=== PATIENT | male | born 1945 | race Caucasian/White ===

== ENCOUNTER → 2020-03-26 | Emergency (ER) | payer MEDICARE, OTHER ==
[~2020-03-26] VITALS: Ht 177.8 cm; Wt 106.6 kg
[~2020-03-26] MED LIST: ALLOPURINOL300 MG PO; CIALIS20 MG PO; CIPROFLOXACIN500 MG PO; FLECAINIDE ACE100 MG PO; FLUTICASONE PRO16 GM NAS; HYDROCHLOROTHIA50 MG PO; HYDROCODON-ACE1 EA10 PO; KLOR-CON M1010 MEQ PO; LIPITOR40 MG PO; METFORMIN HCL1000 MG PO; METOPROLOL TART50 MG PO; PRILOSEC20 MG PO; SIMVASTATIN40 MG PO
--- OUTSIDE RECORDS SUMMARY | ~2020-03-26 | XMS | Encounter Summary ---
Demographics + + + | Address | [address] | | | [place] [address] | + + + | Home Phone | | + + + | Preferred Language | Unknown | + + + | Marital Status | | + + + | Hinduism Affiliation | 1009 | + + + | Race | Unknown | + + + | Ethnic Group | Unknown | + + + Author + + + | Author | [facility] | | | and [place] | + + + | Organization | [facility] | | | and [place] | + + + | Address | Unknown | + + + | Phone | Unavailable | + + + Support + + + + + | Name | Relationship | Address | Phone | + + + + + | Yuliet Crow | ECON | [address] | | | | | [place] | | | | | [address] | | + + + + + | Floyd Herndon | ECON | NA | | | | | NA, | | + + + + + Care Team Providers + +------+ + | Care Milking Machine Technician Name | Role | Phone | + +------+ + | Beltran Fields MD | PCP | | + +------+ + Reason for Visit + + + | Reason | Comments | + + + | Follow-up | follow up ESTEBAN Dick 05/05/15 urinary retention, hematuria | + + + Encounter Details +--------+ + + + + | Date | Type | Department | Care Team | Description | +--------+ + + + + | 05/14/ | Telephone | [facility] | Beltran Fields, | Follow-up (follow up | | 2015 | | MEDICINE [facility] | [address] | [address] | | | | [address] [place] | [place] [address] [place], | 05/05/15 urinary | | | | [place] [address] | [place] [address] | retention, hematuria | | | | [phone] | [phone] | ) | | | | | | | +--------+ + + + + Social History + +-------+ +--------+------+ | Tobacco Use | Types | Packs/Day | Years | Date | | | | | Used | | + +-------+ +--------+------+ | Never Smoker | | | | | + +-------+ +--------+------+ + +---+---+---+ | Smokeless Tobacco: | | | | | Never Used | | | | + +---+---+---+ + + +---------+ + | Alcohol Use | Drinks/Week | oz/Week | Comments | + + +---------+ + | Yes | | | Rare | + + +---------+ + + + + | Sex Assigned at | Date Recorded | | | | + + + | Not on file | | + + + + + + + | Job Start Date | Occupation | Industry | + + + + | Not on file | Not on file | Not on file | + + + + + + + + | Travel History | Travel Start | Travel End | + + + + + + | No recent travel history available. | + + documented as of this encounter Plan of Treatment Not on filedocumented as of this encounter Visit Diagnoses Not on filedocumented in this encounter"
--- OUTSIDE RECORDS SUMMARY | ~2020-03-26 | XMS | Encounter Summary ---
Demographics + + + | Address | [address] | | | [place] [address] | + + + | Home Phone | | + + + | Preferred Language | Unknown | + + + | Marital Status | | + + + | Baptism Affiliation | 1009 | + + + | Race | Unknown | + + + | Ethnic Group | Unknown | + + + Author + + + | Author | [facility] | | | and [place] | + + + | Organization | [facility] | | | and [place] | [...] [place] | | | | | [address] | | + + + + + | Floyd Herndon | ECON | NA | | | | | NA, | | + + + + + Care Team Providers + +------+ + | Care Grain Distributor Name | Role | Phone | + +------+ + | Beltran Fields MD | PCP | | + +------+ + Reason for Visit +--------+ + | Reason | Comments | +--------+ + | Other | SCHEDULE A SURGERY | +--------+ + Encounter Details +--------+ + + + + | Date | Type | Department | Care Team | Description | +--------+ + + + + | 09/03/ | Telephone | [facility] | Jordin Padron, | Other (SCHEDULE A | | 2013 | | [address] | MD [address] | SURGERY) | | | | [place] | [place] | | | | | [address] | [address] | | | | | [phone] | | | +--------+ + + + [...]
--- OUTSIDE RECORDS SUMMARY | ~2020-03-26 | XMS | Encounter Summary ---
Demographics + + + | Address | [address] | | | [place] [address] | + + + | Home Phone | | + + + | Preferred Language | Unknown | + + + | Marital Status | | + + + | Caodaism Affiliation | 1009 | + + + | Race | Unknown | + + + | Ethnic Group | Unknown | + + + Author + + + | Author | [facility] | | | and [place] | + + + | Organization | [facility] | | | and [place] | + + + | Address | Unknown | + + + | Phone | Unavailable | + + + Support + + + + + | Name | Relationship | Address | Phone | + + + + + | Yuliet Crow | ECON | [address] | | | | | [place], [place] | | | | | [address] | | + + + + + | Floyd Herndon | ECON | NA | | | | | NA, | | + + + + + Care Team Providers + +------+ + | Care Diamond Sizer And Grader Name | Role | Phone | + +------+ + | Beltran Fields MD | PCP | | + +------+ + Reason for Visit + + + | Reason | Comments | + + + | Medication Refill | | + + + | Other | | + + + Encounter Details +--------+ + + + + | Date | Type | Department | Care Team | Description | +--------+ + + + + | 07/24/ | Telephone | [facility] | Beltran Fields, | Medication Refill; | | 2013 | | MEDICINE [address] | MD [address] | | | | | [facility] | [address] [place], | | | | | [place] [address] | [place] [address] | | | | | [phone] | [phone] | | | | | | | | [...]
--- OUTSIDE RECORDS SUMMARY | ~2020-03-26 | XMS | Encounter Summary ---
Demographics + + + | Address | [address] | | | [place] [address] | + + + | Home Phone | | + + + | Preferred Language | Unknown | + + + | Marital Status | | + + + | Roman Catholic Affiliation | 1009 | + + + | Race | Unknown | + + + | Ethnic Group | Unknown | + + + Author + + + | Author | [facility] | | | and [place] | + + + | Organization | [facility] | | | and [place] [...] [place] | | | | | [address] | | + + + + + | Floyd Herndon | ECON | NA | | | | | NA, | | + + + + + Care Team Providers + +------+ + | Care Oncology Rep Name | Role | Phone | + [...] Description | +--------+--------+ + + + | 09/29/ | Refill | [facility] | Beltran Fields, | Medication Refill | | 2015 | | MEDICINE [facility] All | [address] [place] [address] | | | | | [facility] | [place] [address] [place], | | | | | [place] [address] | [place] [address] | | | | | [phone] | [phone] | | | | | | | | +--------+--------+ + + + [...] filedocumented as of this encounter Visit Diagnoses + + | Diagnosis | + + | Other allergic rhinitis - Primary | + + documented in this encounter"
--- OUTSIDE RECORDS SUMMARY | ~2020-03-26 | XMS | Encounter Summary ---
Demographics + + + | Address | [address] | | | [place] [address] | + + + | Home Phone | | + + + | Preferred Language | Unknown | + + + | Marital Status | | + + + | Zoroastrianism Affiliation | 1009 | + + + | Race | Unknown | + + + | Ethnic Group | Unknown | + + + Author + + + | Author | [facility] | | | and [place] | + + + | Organization | [facility] | | | and [place] [...] [place] | | | | | [address] | | + + + + + | Floyd Herndon | ECON | NA | | | | | NA, | | + + + + + Care Team Providers + +------+ + | Care Pbx Teacher Name | Role | Phone | + +------+ + | Beltran Fields MD | PCP | | + +------+ + Reason for Visit + + + | Reason | Comments | + + + | Results | discuss labs | + + + | Hyperlipidemia | | + + + Encounter Details +--------+---------+ + + + | Date | Type | Department | Care Team | Description | +--------+---------+ + + + | 05/28/ | Office | [facility] | Beltran Fields, | Hypokalemia (Primary | | 2015 | Visit | MEDICINE [address] | [address] | Dx); Iron | | | | [facility] | [address] [address] [place], | deficiency anemia; | | | | [place] [address] | [place] [address] | Status post | | | | [phone] | [phone] | prostatectomy; | | | | | | Essential | | | | | | hypertension, | | | | | | benign; Paroxysmal | | | | | | a-fib; | | | | | | Hyperlipidemia; | | | | | | Hyperglycemia | +--------+---------+ + + + Social History + +-------+ [...] + + documented as of this encounter Last Filed Vital Signs + + + + + | Vital Sign | Reading | Time Taken | Comments | + + + + + | Blood Pressure | 110/68 | 05/28/2015 1:11 PM | | | | | PDT | | + + + + + | Pulse | 56 | 05/28/2015 1:11 PM | | | | | PDT | | + + + + + | Temperature | 36.7 C (98 F) | 05/28/2015 1:11 PM | | | | | PDT | | + + + + + | Respiratory Rate | 14 | 05/28/2015 1:11 PM | | | | | PDT | | + + + + + | Oxygen Saturation | 97% | 05/28/2015 1:11 PM | | | | | PDT | | + + + + + | Inhaled Oxygen | - | - | | | Concentration | | | | + + + + + | Weight | 116.1 kg (256 lb) | 05/28/2015 1:11 PM | | | | | PDT | | + + + + + | Height | 177.8 cm (5' 10") | 05/28/2015 1:11 PM | | | | | PDT | | + + + + + | Body Mass Index | 36.73 | 05/28/2015 1:11 PM | | | | | PDT | | + + + + + documented in this encounter Progress Notes Beltran Fields MD - 05/28/2015 1:34 PM PDTFormatting of this note might be different f rom the original. Subjective: Patient ID: Guy Thurman is a 69 y.o. male. HPI Anemia, post prostatectomy, This has persisted. Hypokalemia, There are no muscle aches or cramps. It has been persistently low. Prostactectomy 11/02/14, Now with with most recent follow up Cystoscopy 05/05/15, He has h ad intermittent sporadic bleeding and she performed cauterization at that time. He is still getting very sporadic blood tinged urine at the initiation of voiding. This happened twice today. The cystoscopies seem to cause him to develop hiccups. HTN has been fine, checks it daily at home. and it runs in the 120's-130's/70-80's, no mar st pain, SOB, Ankle, pretibial edema R>L unchanged for years. This is again unchanged. Paroxysmal Afib, He will have an occasional palp with overexertion. Rare episode, less than 6 episodes per year. Last several hours per episode, He is on ECASA 325mg po qd. L ast echo 2007 with mild bitrial dilatation. Now on Flecainide per Cardiology Dr Niranjan Luevano MD in [place]. He underwent a stressecho test this january that was normal. Hyperlipidemia, on lipitor, denies muscle aches or weakness. compliant with the medication s. This is unchanged. ED, this is complete after his prostactectomy. He has tried cialis and other medications t o no avail. 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 He is . 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 He lives in [place] 9 living Grandchildren. Review of Systems Constitutional: no fever, No appetite change, no fatigue. HEENT: Neg ear pain, No nosebleeds,no rhinorrhea,no trouble swallowing and no sinus pressure. Eyes: Neg for pain and no visual disturbance. Respiratory: Neg for cough, no chest tightness, no shortness of breath no wheezing. Cardiovascular: Neg for chest pain, no palpitations and no leg swelling. Gastrointestinal: Neg for nausea,no vomiting,no diarrhea,no constipation no abdominal distention. No Belly pain, no black and no bloody stools, no excessive gas Genitourinary: Negative for urgency, no frequency, no decreased urine volume no difficulty urinating. No Bloody urine Musculoskeletal: Neg for myalgias, no back pain, no joint swelling and No arthralgias. N o joint pain Skin: Neg for color change,no rash and No wounds, no Strange moles Neurological: Neg for dizziness, no Weakness,no light-headedness, no numbness and no headaches. Hematological: Neg for adenopathy. Does not bruise/bleed easily. Psychiatric/Behavioral: Neg for suicidal ideas,no confusion and no agitation. no Depression, no anxiety,no sleep problems Objective: Physical Exam Heent, WNL, No carotid bruit Chest CTAB Heart RR&R /s M Abd S,NT,ND,BS+ Ext, no CCor E Neuro Non-focal Lymph, no cervical, axillary, inguinal adenopathy Musculoskeletal, no gross deformity or loss or range of motion Skin, no gross lesions Assessment: 1. Hypokalemia potassium chloride (POTASSIUM CHLORIDE SA) 20 mEq tablet 2. Iron deficiency anemia Iron Profile CBC with Differential 3. Status post prostatectomy 4. Essential hypertension, benign 5. Paroxysmal a-fib 6. Hyperlipidemia Plan: Will increase his K dose. Labs are due. RTC 6 months, Refill metoprolol. Otherwise cont inue current medical regimen. documented in this encounter Plan of Treatment Not on filedocumented as of this encounter Results Hemoglobin A1C (11/14/2015 12:09 PM PST) + +---------+ + + + | Component | Value | Ref Range | Performed | Pathologist | | | | | At | Signature | + +---------+ + + + | Hemoglobin | 7.1 (H) | 4.3 - 6.0 % | [facility] | | | A1c | | | [facility] | | | | | | [facility]ICAL | | | | | | CENTER - | | | | | | LABORATORY | | + +---------+ + + + | Estimated | 157 | mg/dL | [facility] | | | Average | | | [facility] | | | Glucose | | | MEDICAL | | | | | | CENTER - | | | | | | LABORATORY | | + +---------+ + + + + + | Specimen | + + | Blood | + + + + + + + | Performing | Address | City/State/Zipcode | Phone Number | | Organization | | | | + + + + + | [facility] | [address] | [place] | [phone] | | [facility] | | [address] | | | - LABORATORY | | | | + + + + + Comprehensive Metabolic Panel (11/14/2015 12:09 PM PST) + + + + + + | Component | Value | Ref Range | Performed | Pathologist | | | | | At | Signature | + + + + + + | Na | 140 | 136 - 149 | [facility] | | | | | mmol/L | [facility] | | | | | | MEDICAL | | | | | | CENTER - | | | | | | LABORATORY | | + + + + + + | K | 4.0 | 3.5 - 5.1 | [facility] | | | | | mmol/L | [facility] | | | | | | MEDICAL | | | | | | CENTER - | | | | | | LABORATORY | | + + + + + + | Cl | 103 | 98 - 109 mmol/L | [facility] | | | | | | [facility] | | | | | | MEDICAL | | | | | | CENTER - | | | | | | LABORATORY | | + + + + + + | CO2 | 30 | 24 - 31 mmol/L | [facility] | | | | | | [facility] | | | | | | MEDICAL | | | | | | CENTER - | | | | | | LABORATORY | | + + + + + + | Anion Gap | 7 | 3 - 16 mmol/L | [facility] | | | | | | [facility] | | | | | | MEDICAL | | | | | | CENTER - | | | | | | LABORATORY | | + + + + + + | Glucose | 127 (H) | 70 - 109 mg/dL | [facility] | | | | | | [facility] | | | | | | MEDICAL | | | | | | CENTER - | | | | | | LABORATORY | | + + + + + + | BUN | 11 | 7 - 18 mg/dL | [facility] | | | | | | [facility] | | | | | | MEDICAL | | | | | | CENTER - | | | | | | LABORATORY | | + + + + + + | Creatinine | 1.07 | 0.60 - 1.30 | [facility] | | | | | mg/dL | [facility] | | | | | | MEDICAL | | | | | | CENTER - | | | | | | LABORATORY | | + + + + + + | eGFR if not | >60Comment: GLOMERULAR | >=60 | [facility] | | | | FILTRATION | mL/min/1.73m2 | [facility] | | | AFGHAN | RATE,ESTIMATED | | MEDICAL | | | | mL/min/1.51t8Gylv than | | CENTER - | | | | 60 Chronic kidney | | LABORATORY | | | | disease,if found over a | | | | | | 3-month period.Less than | | | | | | 15 Kidney failureFor | | | | | | | | | | | | Americans,multiply the | | | | | | calculated GFR by 1.21. | | | | | | | | | | + + + + + + | Calcium | 9.4 | 8.3 - 10.5 | [facility] | | | | | mg/dL | [facility] | [facility] | | | | | | C[facility] - | | | | | | LABORATORY | | + + + + + + | Albumin | 3.8 | 3.2 - 5.0 g/dL | [facility] | | | | | | [facility] | | [facility] | | | [facility] | | | | | | CENTER - | | | | | | LABORATORY | | + + + + + + | Bilirubin | 0.8 | 0.1 - 1.5 mg/dL | [facility] | | | Total | | | [facility] | | | | | | MEDICAL | | | | | | CENTER - | | | | | | LABORATORY | | + + + + + + | Total | 7.0 | 6.0 - 7.8 g/dL | [facility] | | | Protein | | | [facility] | | | | | | MEDICAL | | | | | | CENTER - | | | | | | LABORATORY | | + + + + + + | AST | 21 | 10 - 42 U/L | [facility] | | | | | | [facility] | | | | | | MEDICAL | | | | | | CENTER - | | | | | | LABORATORY | | + + + + + + | ALT | 21 | 6 - 45 U/L | [facility] | | | | | | [facility] | | | | | | MEDICAL | | | | | | CENTER - | | | | | | LABORATORY | | + + + + + + | Alkaline | 93 | 40 - 110 U/L | [facility] | | | Phosphatase | | | [facility] | | | | | | MEDICAL | | | | | | CENTER - | | | | | | LABORATORY | | + + + + + + | Globulin | 3.2 | g/dL | [facility] | | | | | | [facility] | | | | | | MEDICAL | | | | | | CENTER - | | | | | | LABORATORY | | + + + + + + | Albumin/Orly | 1.2 | | [facility] | | | bulin Ratio | | | [facility] | | | | | | MEDICAL | | | | | | CENTER - | | | | | | LABORATORY | | + + + + + + | BUN/Creatin | 10.3 | | [facility] | | | ine Ratio | | | [facility] | | | | | | MEDICAL | | | | | | CENTER - | | | | | | LABORATORY | | + + + + + + + + | Specimen | + + | Blood | + + + + + + + | Performing | Address | City/State/Zipcode | Phone Number | | Organization | | | | + + + + + | [facility] | [address] | [place] | [phone] | | [facility] | | [address] | | | - LABORATORY | | | | + + + + + CBC with Differential (11/14/2015 12:09 PM PST) + + + + + + | Component | Value | Ref Range | Performed | Pathologist | | | | | At | Signature | + + + + + + | WBC | 8.6 | 4.0 - 11.0 K/uL | [facility] | | | | | | [facility] | | | | | [facility] | | | | | | CENTER - | | | | | | LABORATORY | | + + + + + + | RBC | 5.28 | 4.30 - 5.70 | [facility] | | | | | M/uL | [facility] | | | | | | MEDICAL | | | | | | CENTER - | | | | | | LABORATORY | | + + + + + + | Hemoglobin | 12.7 (L) | 13.5 - 18.0 | [facility] | | | | | g/dL | [facility] | | | | | | MEDICAL | | | | | | CENTER - | | | | | | LABORATORY | | + + + + + + | Hematocrit | 39.7 (L) | 40.0 - 51.0 % | [facility] | | | | | | [facility] | | | | | | MEDICAL | | | | | | CENTER - | | | | | | LABORATORY | | + + + + + + | MCV | 75.1 (L) | 83.0 - 101.0 fL | [facility] | | | | | | [facility] | | | | | | MEDICAL | | | | | | CENTER - | | | | | | LABORATORY | | + + + + + + | MCH | 24.1 (L) | 28.0 - 35.0 pg | [facility] | | | | | | [facility] | | | | | | MEDICAL | | | | | | CENTER - | | | | | | LABORATORY | | + + + + + + | MCHC | 32.1 | 32.0 - 36.0 | [facility] | | | | | g/dL | [facility] | | | | | | MEDICAL | | | | | | CENTER - | | | | | | LABORATORY | | + + + + + + | RDW-CV | 18.0 (H) | <15.0 % | [facility] | | | | | | [facility] | | [facility] | | | MEDICAL | | | | | | CENTER - | | | | | | LABORATORY | | + + + + + + | Platelet | 293 | 140 - 440 K/uL | [facility] | | | Count | | | [facility] | | | | | | MEDICAL | | | | | | CENTER - | | | | | | LABORATORY | | + + + + + + | MPV | 8.0 | fL | [facility] | | | | | | [facility] | | | | | | [facility]ICAL | | | | | | CENTER - | | | | | | LABORATORY | | + + + + + + | % | 57.7 | 45.0 - 82.0 % | [facility] | | | Neutrophils | | | [facility] | | | | | | MEDICAL | | | | | | CENTER - | | | | | | LABORATORY | | + + + + + + | % | 31.4 | 20.0 - 45.0 % | [facility] | | | Lymphocytes | | | [facility] | | | | | | MEDICAL | | | | | | CENTER - | | | | | | LABORATORY | | + + + + + + | % Monocytes | 8.9 | 4.0 - 12.0 % | [facility] | | | | | | [facility] | | | | | | MEDICAL | | | | | | CENTER - | | | | | | LABORATORY | | + + + + + + | % | 1.6 | 0.0 - 5.0 % | [facility] | | | Eosinophils | | | [facility] | | | | | | MEDICAL | | | | | | CENTER - | | | | | | LABORATORY | | + + + + + + | % Basophils | 0.4 | 0.0 - 1.0 % | [facility] | | | | | | [facility] | | | | | | MEDICAL | | | | | | CENTER - | | | | | | LABORATORY | | + + + + + + | Absolute | 5.00 | 1.80 - 8.50 | [facility] | | | Neutrophils | | K/uL | [facility] | | | | | | MEDICAL | | | | | | CENTER - | | | | | | LABORATORY | | + + + + + + | Absolute | 2.70 | 0.60 - 3.20 | [facility] | | | Lymphocytes | | K/uL | [facility] | | | | | | MEDICAL | | | | | | CENTER - | | | | | | LABORATORY | | + + + + + + | Absolute | 0.80 | 0.00 - 1.00 | [facility] | | | Monocytes | | K/uL | [facility] | | | | | | MEDICAL | | | | | | CENTER - | | | | | | LABORATORY | | + + + + + + | Absolute | 0.10 | 0.00 - 0.40 | [facility] | | | Eosinophils | | K/uL | [facility] | | | | | | MEDICAL | | | | | | CENTER - | | | | | | LABORATORY | | + + + + + + | Absolute | 0.00 | 0.00 - 0.10 | [facility] | | | Basophils | | K/uL | [facility] | | | | | | MEDICAL | | | | | | CENTER - | | | | | | LABORATORY | | + + + + + + + + | Specimen | + + | Blood | + + + + + + + | Performing | Address | City/State/Zipcode | Phone Number | | Organization | | | | + + + + + | [facility] | [address] | [place] | [phone] | | [facility] | | [address] | | | - LABORATORY | | | | + + + + + documented in this encounter Visit Diagnoses + + | Diagnosis | + + | Hypokalemia - Primary Hypopotassemia | + + | Iron deficiency anemia Iron deficiency anemia, unspecified | + + | Status post prostatectomy Other postprocedural status | + + | Essential hypertension, benign | + + | Paroxysmal a-fib Atrial fibrillation | + + | Hyperlipidemia Other and unspecified hyperlipidemia | + + | Hyperglycemia Other abnormal glucose | + + documented in this encounter
--- OUTSIDE RECORDS SUMMARY | ~2020-03-26 | XMS | Encounter Summary ---
Demographics + + + | Address | [address] | | | [place] [address] | + + + | Home Phone | | + + + | Preferred Language | Unknown | + + + | Marital Status | | + + + | Anabaptist Affiliation | 1009 | + + + | Race | Unknown | + + + | Ethnic Group | Unknown | + + + Author + + + | Author | [facility] | | | and [place] | + + + | Organization | [facility] | | | and [place] [...] [place] | | | | | [address] | | + + + + + | Floyd Herndon | ECON | NA | | | | | NA, | | + + + + + Care Team Providers + +------+ + | Care Interventional Technologist Name | Role | Phone | + +------+ + | Beltran Fields MD | PCP | | + +------+ + Reason for Visit + + + | Reason | Comments | + + + | Records Request | | + + + Encounter Details +--------+ + + + + | Date | Type | Department | Care Team | Description | +--------+ + + + + | 10/10/ | Telephone | [facility] | Jordin Padron, | Records Request | | 2013 | | [address] | MD [address] | | | | | [place] | [place] | | | | | [address] | [id number] | | | | | [phone] | | | +--------+ + + + [...]
--- OUTSIDE RECORDS SUMMARY | ~2020-03-26 | XMS | Encounter Summary ---
Demographics + + + | Address | [address] | | | [place] [address] | + + + | Home Phone | | + + + | Preferred Language | Unknown | + + + | Marital Status | | + + + | Restorationism Affiliation | 1009 | + + + | Race | Unknown | + + + | Ethnic Group | Unknown | + + + Author + + + | Author | [facility] | | | and [place] | + + + | Organization | [facility] | | | and [place] | + + + | Address | Unknown | + + + | Phone | Unavailable | + + + Support + + + + + | Name | Relationship | Address | Phone | + + + + + | Yuliet Crow | ECON | [address] | | | | | [place], [place] | | | | | [address] | | + + + + + | Floyd Herndon | ECON | NA | | | | | NA, | | + + + + + Care Team Providers + +------+ + | Care Golf Instructor Name | Role | Phone | + +------+ + | Beltran Fields MD | PCP | | + +------+ + Reason for Visit + + + | Reason | Comments | + + + | New Patient | BPH | + + + Evaluate & Treat (Routine) +--------+--------+ + + + + | Status | Reason | Specialty | Diagnoses / | Referred By | Referred To | | | | | Procedures | Contact | Contact | +--------+--------+ + + + + | Closed | | Urology | Diagnoses | [place], | [facility] | | | | | BPH (benign | Beltran Nunn MD | Urology [address] | | | | | prostatic | [address] | | | | | hyperplasia) | [address] | [place], | | | | | | [place] | [place] [address] | | | | | | [place] | Phone: | | | | | | [address] | [phone] | | | | | | Phone: | Fax: | | | | | | [phone] | [phone] | | | | | | Fax: | | | | | | | [phone] | | +--------+--------+ + + + + Encounter Details +--------+---------+ + + + | Date | Type | Department | Care Team | Description | +--------+---------+ + + + | 04/11/ | Office | [facility] | Jordin Padron, | Weak urinary stream | | 2019 | Visit | [address] | MD [address] | (Primary Dx); S/P | | | | [place] | [place] | prostatectomy; | | | | [address] | [address] | Preventative health | | | | [phone] | | care | +--------+---------+ + + + Social History [...] + + + | Blood Pressure | 120/62 | 04/11/2019 1:57 PM | | | | | PDT | | + + + + + | Pulse | 72 | 04/11/2019 1:57 PM | | | | | PDT | | + + + + + | Temperature | - | - | | + + + + + | Respiratory Rate | 16 | 04/11/2019 1:57 PM | | | | | PDT | | + + + + + | Oxygen Saturation | - | - | | + + + + + | Inhaled Oxygen | - | - | | | Concentration | | | | + + + + + | Weight | 118 kg (260 lb 2.3 | 04/11/2019 1:57 PM | | | | oz) | PDT | | + + + + + | Height | 177.8 cm (5' 10") | 04/11/2019 1:57 PM | | | | | PDT | | + + + + + | Body Mass Index | 37.33 | 04/11/2019 1:57 PM | | | | | PDT | | + + + + + documented in this encounter Patient Instructions Patient Instructions Jordin Padron MD - 04/11/2019 2:00 PM PDTFormatting of this note m ight be different from the original. Prostate Cancer Screening: Making a Decision Talking with your healthcare provider will help you make an informed decision about prostat e cancer screening. Should you be screened yearly for prostate cancer, even if you have no symptoms? Experts baldo camacho. Below are some factors to think about as you make a decision. Why prostate cancer screening is controversial Not all healthcare providers agree that prostate cancer screening is useful. This is becaus e: PSA test results are not always right.In some cases, the PSA test can have false-posit steve or false-negative results. A false-positive means that test results show a man may have cancer when he doesn t. This can lead to more tests, which can lead to stress and possible harm from the tests.A false-negative means that test results do not show cancer when a ma n does have cancer. This can mean you don't get the additional tests or the treatment you ne ed. Finding prostate cancer early may not be helpful. Even if screening does help find can cer early, prostate cancer often grows slowly and most often affects older men. This means t hat finding it early may not lead to a longer life. Many men with prostate cancer years later of other causes. They may never have symptoms or be treated for their cancer. But [facility] providers can t always tell which cancers are likely to grow fast and need to be tr eated. Even if a cancer is slow-growing, a man may want it treated. Treatment for prostate c ancer can have serious side effects. These include erection problems and lack of urine contr ol. Talking with your healthcare provider Expert groups advise that men talk with their healthcare providers. This can help you make an informed decision about screening. Ask any questions you have about testing. Talk with yo healthcare provider about: Your personal risk for prostate cancer based on your age, race, and family history What the screening test results can and can t tell you What the next steps would be if the test results show you might have prostate cancer What your choices would be for treating or not treating right away What the treatment choices are if you were to have treatment Date Last Reviewed: 04/15/201719990979-8726 [employer]. [address] [place] [address]. All righ ts reserved. This information is not intended as a substitute for professional medical care. Always follow your healthcare professional's instructions. documented in this encounter Progress Notes Jordin Padron MD - 04/11/2019 2:00 PM PDTFormatting of this note might be different fro m the original. HPI Guy Thurman is a 73 y.o. male referred by Beltran Fields MD RELEVANT HISTORY GATHERED FROM PRIOR OFFICE VISITS: Dr. Cortezir has history of marked prostatic hypertrophy, gross hematuria, abnormal PSA, and f amily history of prostate cancer. Prostate biopsies in 2008 and 2011 were negative. Gland volume was estimated at 172 cc at biopsy on 04/18/2012. Recurrent gross hematuria and abnormal PSA prompted the performance of an open, simple pros tatectomy by Dr. Yohan Brumfield on approximately 11/02/2014. Pathology was reported as benign. He had a follow-up cystoscopic examination by Dr. Brumfield confirming the presence of a 6 [facility] bladder neck contracture. He underwent a transurethral resection of bladder neck contra cture by Dr. Brumfield in mid April 2015. About 1 week later, he experienced a recurrence of gross hematuria, and Dr. Maguire perform cystoscopy with clot evacuation and fulguration of a single bleeder on 05/05/2015 at [facility]. A younger brother was treated for prostate cancer in approximately 2011. Today, 04/11/2019, Guy presents for follow-up of BPH and weak urinary stream. Dr. Thurman reports that overall, he continues to do fairly well. However, over the past 3 y ears, he continues to have a weak urinary stream which he feels is stable. Sometimes he has double voiding, and might have to change position to empty his bladder completely. He has nocturia 0. He has urinary frequency every 4 hours. He denies any dysuria or hem aturia. He denies any urinary tract infections. He reports he has good urinary control. He states that he has not had any recurrence of gross hematuria since fulguration with Dr. Maguire in 2014. He states that he was started on metformin last week. He denies any renal colic. He still has erectile dysfunction. He denies any depression or suicidal ideation. He denies any weight loss. He denies any recent cold or flulike illness. He denies any fe lisandra or chills or nausea or vomiting. He denies any cough or chest pain or shortness breath or hemoptysis. He denies any changes in his bowel habits. He denies any hematochezia or me graciela or constipation or diarrhea. He has atrial fibrillation, joint pain, low back pain with exertion, and remote history of suicidal ideation, no current plans, otherwise, 10 point review of systems is negative. He does not smoke. He states that he is contemplating long term next year. He has grandchildren in [place], [place], and [place]. He is . He has 1 child. His father and brother had prostate cancer. Mother a ge 94. Father age 77 with metastatic prostate cancer. 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 I spent in excess of 30 minutes with Guy today, over 50% of this time spent in counseling regarding family history of prostate cancer, weak urinary stream, incomplete bladder emptyi ng, bladder neck contracture, and obstructive voiding symptoms. Past Medical History: Diagnosis Date Anemia Arthritis ATRIAL FIBRILLATION WITH RAPID VENTRICULAR RESPONSE 04/06/2012 Bening Prostatic Hyperplasia Chronic low back pain/Intermittment Sciatica Colonic polyps Depression Environmental allergies Season hayfever Gastroparesis GERD (gastroesophageal reflux disease) Gout Hyperlipidemia Hypertension Obstructive sleep apnea 01/19/2011 Osteoarthritis 09/08/2012 Paroxysmal atrial fibrillation (HCC) [place]is Ring Unspecified vitamin D deficiency 04/06/2011 Past Surgical History: Procedure Laterality Date APPENDECTOMY 1987 CARPAL TUNNEL RELEASE Bilateral COLONOSCOPY CYSTOSCOPY 04/26/2014 CYSTOSCOPY 05/05/2014 LAMINECTOMY L3-S1 MENISCECTOMY Left PROSTATECTOMY 11/02/14 (negative)/Dr Juan Brumfield of the [facility] TONSILLECTOMY VASECTOMY Outpatient Encounter Medications as of 04/11/2019 Medication Sig Dispense Refill allopurinol (ZYLOPRIM) 300 mg tablet Take one tablet by mouth every day 90 tablet 3 atorvaSTATin (LIPITOR) 40 mg tablet Take one tablet by mouth every day 90 tablet 3 flecainide (TAMBOCOR) 100 mg tablet TAKE ONE TABLET BY MOUTH TWICE DAILY 180 tablet 1 fluticasone (FLONASE) 50 mcg/nasal spray USE 2 SPRAYS IN EACH NOSTRIL EVERY DAY. 16 g 2 hydroCHLOROthiazide 50 mg tablet Take one tablet by mouth every day 90 tablet 1 HYDROcodone-acetaminophen (NORCO) 5-325 mg per tablet Take 1 tablet by mouth every 6 ho urs as needed for Pain. 30 tablet 0 metFORMIN (GLUCOPHAGE) 1000 MG tablet Take 1 tablet by mouth 2 times daily. 180 tablet 1 metoprolol tartrate (LOPRESSOR) 25 mg tablet Take 1 tablet by mouth every evening. Take s 50 mg tablet in the morning. 90 tablet 1 metoprolol tartrate (LOPRESSOR) 50 mg tablet Take one tablet by mouth every day. Takes 25 mg tablet in evening. 90 tablet 1 multivitamin (THERAGRAN) per tablet one tablet by mouth daily Wheaton-3 Fatty Acids (EQL FISH OIL) 1000 MG CAPS two capsules by mouth daily Omeprazole Magnesium (PRILOSEC OTC PO) TBEC one tablet by mouth daily potassium chloride (KLOR-CON M20) 20 mEq ER tablet TAKE ONE TABLET BY MOUTH EVERY DAY 9 0 tablet 1 UNCODED MEDICATION Diagnosis: Obstructive Sleep Apnea ICD-9: 327.23 Length of Need: 99 Months 1 Device 0 No facility-administered encounter medications on file as of 04/11/2019. 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 Exercise:None Caffeine Use:Occ. Soda Living Situation: [place] since 1996 Born in [facility] REVIEW OF SYSTEMS: [] Marked All Negative Constitutional Symptoms: [] Fever [] Chills [] Headache [] Change in appetite [] Change in weight [] Change in energy [] Other: Neurological: [] Tremors [] Dizzy Spells [] Numbness/Tingling [] Seizures [] Other: Endocrine: [] Excessive thirst [] Too hot [] Too cold [] Tired/Sluggish Gastrointestinal: [] Abdominal pain [] Nausea/Vomiting [] Indigestion/heartburn [] Change in stoo l size [] Change in stool shape [] Change in stool color [] Pain with swallowing [] Other: Cardiovascular: [] Chest Pain [] Rapid heart rate [] High blood pressure [x] Other: A-Fib Integumentary: [] Skin rash [] Boils [] Persistent itch [] Other: Musculoskeletal: [] Neck Pain [x] Joint swelling/pain [x] Back pain [] Bone pain [] Other: Respiratory: [] Wheezing [] Frequent cough [] Shortness of breath [] Other: Hematologic/Lymphatic: [] Swollen glands [] Blood clotting issues [] Prior blood transfusions []Other: Psychologic: Are you generally satisfied with your life? yes Do you feel severely depressed? NA Have you considered suicide? yes Habits: Do you smoke? no [x] Yes [] No Patient to follow up with PCP regarding positives on review of systems. IPSS (International Prostate Symptom Score) 0=0 - Not at All 1=1 - Less than 1 in 5 times 2=2 - Less than half the time 3=3 - About half the time 4=4 - More than half the time 5=5 - Almost always IPSS (INTERNATIONAL PROSTATE SYMPTOM SCORE) 04/11/2019 1. Incomplete Emptying - How often have you had the sensation of not emptying your bladder? 5 2. Frequency - How often have you had to urinate less than every two hours? 0 3. Intermittency - How often have you found you stopped and started again several times whe n you urinated? 5 4. Urgency - How often have you found it difficult to postpone urination? 1 5. Weak Stream - How often have you had a weak urinary stream? 5 6. Straining - How often have you had to strain to start urination? 1 7. Nocturia - How many times did you typically get up at night to urinate? 0 TOTAL: 17 Quality of Life Due to Urinary Symptoms 0=0 - Delighted 1=1 - Pleased 2=2 - Mostly satisfied 3=3 - Mixed 4=4 - Mostly dissatisfied 5=5 - Unhappy 6=6 - Terrible QUALITY OF LIFE (URINARY) 04/11/2019 If you were to spend the rest of your life with your urinary condition just the way it is n ow, how would you feel about that? 4 PHYSICAL EXAM Vitals: BP 120/62 | Pulse 72 | Resp 16 | Ht 1.778 m (5' 10") | Wt 118 kg (260 lb 2.3 oz ) | BMI 37.33 kg/m General: Awake, alert, in no acute distress. Speech is fluent. Appears to be stated age. Neck: Supple; No lymphadenopathy. No thyromegaly. Lungs: Normal respiratory effort, no wheezing, no stridor, no tachypnea. Chest: No rib or bony tenderness. Back: No CVA tenderness. No tenderness to fist percussion of the spine. Abdomen: Soft, rotund, nontender, nondistended, no hepatosplenomegaly. No masses. No guar ding; benign. Bladder nondistended. No flank tenderness. Midline surgical scar is well-heal ed without incisional hernia or tenderness. Extremities: Non-edematous. Hips and long bones nontender to fist percussion. Neuro: Awake, alert, oriented x3. Normal station and gait. Psychiatric: Mood and affect are normal. Normal judgment. Skin: Warm and dry, no erythematous rash. Groin: No mass. No lymphadenopathy. DIAGNOSTIC DATA: Bladder residual 04/11/19 is 63 cc. Urinalysis today is negative. AUA symptom score 17. PSA 02/24/2019 is 0.015 (we had to call [facility]) PSA 12/06/2015 is 0.014. PSA 07/26/2014 is 10.65. PSA 05/08/2014 is 11.88. PSA 10/27/2013 is 12.91. PSA 10/20/2011 is 7.43. PSA 03/27/2010 is 8.75. PSA 05/31/2009 is 5.44. Saturation needle biopsies of the prostate gland on approximately 09/22/[address] Octaviano martinez ere benign. Pathology from prostatectomy is reportedly benign. Comprehensive metabolic panel 02/24/2019 is normal except for glucose of 133. BUN is 14 and creatinine is 0.96. Electrolytes are normal. Liver function testing is normal. GFR is 77 . Cholesterol is 119, and triglycerides 206. Hemoglobin A1c 02/24/2019 is 7.0. CBC 02/24/2019 shows WBC 6.8, hemoglobin 15.1, hematocrit 44.6, platelets 279. Lab Results Component Value Date COLORPOC Yellow 04/11/2019 CLARITYU Clear 04/11/2019 GLUCOSEPOC Negative 04/11/2019 BILIPOC Negative 04/11/2019 SG 1.010 04/11/2019 RBCUR Negative 04/11/2019 PHUAPOC 7.0 04/11/2019 PROTEINPOC Negative 04/11/2019 UROBILINOGEN 0.2 04/11/2019 NITRITEPOC Negative 04/11/2019 LEUKOCYTESUR Negative 04/11/2019 IMPRESSION: 1. Weak urinary stream. He probably has recurrence of bladder neck contracture. However, he is emptying his bladder appropriately with bladder residual today of 63 cc. 2. Marked prostatic hyperplasia. Resolved status post proctectomy 11/02/2014. Prostate g land volume was 172 cc on 04/28/2012. 3. Abnormal PSA. Resolved. His PSA remains nearly undetectable. 4. Family history of prostate cancer. 5. Moderate obstructive voiding symptoms. AUA symptom score is 17. 6. Erectile dysfunction. 7. History of bladder neck contracture. Treated with TURBNC by Dr. Brumfield in ~April 2015. 8. Incomplete bladder emptying. His bladder residual today of 63 cc is within normal limi ts. 9. Hyperlipidemia. 10. Diabetes mellitus. PLAN: We discussed his family history of prostate cancer and its significance. We discussed the controversy associated with prostate cancer screening. I discussed with Guy the recommend ations of the [place] Preventive Services Task Force to neither recommend or reject PS A testing (grade C recommendation). I advised him that the current AUA guidelines would sup port offering prostate cancer screening with PSA testing between the ages of 55 and 69. We discussed the rationale for these recommendations. We discussed the false positives associa jeramy with PSA testing. Given his family history of prostate cancer, I believe it is still reasonable to continue p rostate cancer screening, perhaps until age 75. We discussed his weak urinary stream and his obstructive voiding symptoms. I told him that I believe he probably has recurrence of bladder neck contracture. A cystoscopic examinatio n is offered. However, since his symptoms are minimally bothersome to him, his renal functi on remains normal, and his PVR is only 63 cc, he elects continued observation. I asked Guy to follow-up in one year. He'll have a PVR, urinalysis, AUA symptom score, B MP, and PSA level drawn prior to his follow-up visit. He'll follow-up sooner if any difficu lties should arise in the interim. Guy will continue his regular and customary care and followup with his primary care darcyi bharati. I asked Guy to notify me immediately if he should experience any difficulties with voidin g or if he has any questions or concerns or any problems whatsoever. This document was generated in part using voice recognition software. Frequent wrong word or sound-alike substitutions may have occurred due to the inherent limitations of the voice recognition software. Although I have attempted to edit the content, I have not thoroughly proofread this note, and territory supervisor errors are likely to occur. documented in this e ncounter Plan of Treatment Not on filedocumented as of this encounter Procedures + +--------+ + + + | Procedure Name | Priori | Date/Time | Associated Diagnosis | Comments | | | ty | | | | + +--------+ + + + | POCT URINALYSIS, | Routin | 04/11/2019 | Weak urinary | Results for this | | AUTO WITH CONF | e | 2:20 PM | stream | procedure are in the | | | | PDT | | results section. | + +--------+ + + + | DIAGNOSTIC REPORT - | | 04/11/2019 | | Results for this | | EXTERNAL SCAN | | 12:00 AM | | procedure are in the | | | | PDT | | results section. | + +--------+ + + + | LABS - EXTERNAL SCAN | | 02/24/2019 | | Results for this | | | | 12:00 AM | | procedure are in the | | | | PDT | | results section. | + +--------+ + + + documented in this encounter Results POCT Urinalysis (04/11/2019 2:20 PM PDT) + + + + + + | Component | Value | Ref Range | Performed | Pathologist | | | | | At | Signature | + + + + + + | Color, UA, | Yellow | Yellow, Light | | | | POC | | Yellow | | | + + + + + + | Clarity, | Clear | | | | | UA, POC | | | | | + + + + + + | Glucose, | Negative | Negative | | | | UA, POC | | | | | + + + + + + | Bilirubin, | Negative | Negative | | | | UA, POC | | | | | + + + + + + | Ketones, | Negative | Negative, 100 | | | | UA, POC | | mg/dL | | | + + + + + + | Specific | 1.010 | 1.001 - 1.030 | | | | [place], | | | | | | UA, POC | | | | | + + + + + + | Blood, UA, | Negative | Negative | | | | POC | | | | | + + + + + + | pH, UA, POC | 7.0 | 5.0, 6.0, 7.0, | | | | | | 8.0, 5.5, 6.5, | | | | | | 7.5 | | | + + + + + + | Protein, | Negative | Negative | | | | UA, POC | | | | | + + + + + + | Urobilinoge | 0.2 | 0.2, Negative, | | | | n, UA, POC | | Normal, < 0.2 | | | | | | mg/dL, 1 mg/dL, | | | | | | < 0.2 E.U./dl, | | | | | | 1.0 E.U./dL, | | | | | | 0.2 mg/dL | | | + + + + + + | Nitrite, | Negative | Negative | | | | UA, POC | | | | | + + + + + + | Leukocyte | Negative | Negative | | | | Esterase, | | | | | | UA, POC | | | | | + + + + + + | Reducing | | | | | | Substances, | | | | | | Urine | | | | | + + + + + + | Bilirubin | | Negative | | | | Confirmatio | | | | | | n by | | | | | | Ictotest, | | | | | | Urine | | | | | + + + + + + | Remark | | | | | + + + + + + + + | Specimen | + + | Urine | + + DIAGNOSTIC REPORT - EXTERNAL SCAN (04/11/2019 12:00 AM PDT) + + + | Narrative | Performed At | + + + | Ordered by an | | | unspecified provider. | | + + + LABS - EXTERNAL SCAN (02/24/2019 12:00 AM PDT) + + + | Narrative | Performed At | + + + | Ordered by an | | | unspecified provider. | | + + + documented in this encounter Visit Diagnoses + + | Diagnosis | + + | Weak urinary stream - Primary Slowing of urinary stream | + + | S/P prostatectomy Other postprocedural status | + + | Preventative health care Routine general medical examination at a health care | | facility | + + documented in this encounter
--- OUTSIDE RECORDS SUMMARY | ~2020-03-26 | XMS | Encounter Summary ---
Demographics + + + | Address | [address] | | | [place] [address] | + + + | Home Phone | | + + + | Preferred Language | Unknown | + + + | Marital Status | | + + + | Moravian Affiliation | 1009 | + + + | Race | Unknown | + + + | Ethnic Group | Unknown | + + + Author + + + | Author | [facility] | | | and [place] | + + + | Organization | [facility] | | | and [place] | [...] [place] | | | | | [address] | | + + + + + | Floyd Herndon | ECON | NA | | | | | NA, | | + + + + + Care Team Providers + +------+ + | Care Quality Assurance Name | Role | Phone | + +------+ + | Beltran Fields MD | PCP | | + +------+ + Reason for Visit + + + | Reason | Comments | + + + | Medication Orders | | + + + Encounter Details +--------+ + + + + | Date | Type | Department | Care Team | Description | +--------+ + + + + | 03/29/ | Telephone | [facility] | Beltran Fields, | Medication Orders | | 2019 | | [facility] [place] | [address] | | | | | [address] | [address] [place], | | | | | [place] | [place] [address] | | | | | [address] | [phone] | | | | | [phone] | | | +--------+ + + + [...] + | Diagnosis | + + | Type 2 diabetes mellitus with hyperglycemia, without long-term current use of insulin | | (HCC) - Primary | + + documented in this encounter"
--- OUTSIDE RECORDS SUMMARY | ~2020-03-26 | XMS | Encounter Summary ---
Demographics + + + | Address | [address] | | | [place] [address] | + + + | Home Phone | | + + + | Preferred Language | Unknown | + + + | Marital Status | | + + + | Druze Affiliation | 1009 | + + + | Race | Unknown | + + + | Ethnic Group | Unknown | + + + Author + + + | Author | [facility] | | | and [place] | + + + | Organization | [facility] | | | and [...] [place], [place] | | | | | [address] | | + + + + + | Floyd Herndon | ECON | NA | | | | | NA, | | + + + + + Care Team Providers + +------+ + | Care Modeling Manager Name | Role | Phone | + [...] + + | 07/24/ | Telephone | [facility] | Beltran Fields, | Medication Refill; | | 2013 | | MEDICINE [address] | MD [address] | | | | | [facility] | [address] [place], | | | | | [place] [address] | [place] [address] | | | | | [phone] | [phone] | | | | | | | [...]
--- OUTSIDE RECORDS SUMMARY | ~2020-03-26 | XMS | Encounter Summary ---
Demographics + + + | Address | [address] | | | [place] [address] | + + + | Home Phone | | + + + | Preferred Language | Unknown | + + + | Marital Status | | + + + | Amish Affiliation | 1009 | + + + | Race | Unknown | + + + | Ethnic Group | Unknown | + + + Author + + + | Author | [facility] | | | and [place] | + + + | Organization | [facility] | | | and [place] [...] [place] | | | | | [address] | | + + + + + | Floyd Herndon | ECON | NA | | | | | NA, | | + + + + + Care Team Providers + +------+ + | Care Commercial Credit Portfolio Manager Name | Role | Phone | [...] + + | 02/12/ | Refill | [facility] | Beltran Fields, | Medication Refill | | 2013 | | [facility] | [address] | | | | | [address] | [address] [place] [address], | | | | | [place], [place] | [place] [address] | | | | | [address] | [phone] | | | | | [phone] | | | +--------+--------+ + + + [...]
--- OUTSIDE RECORDS SUMMARY | ~2020-03-26 | XMS | Encounter Summary ---
Demographics + + + | Address | [address] | | | [place] [address] | + + + | Home Phone | | + + + | Preferred Language | Unknown | + + + | Marital Status | | + + + | Roman Catholic Affiliation | 1009 | + + + | Race | Unknown | + + + | Ethnic Group | Unknown | + + + Author + + + | Author | [facility] | | | and [place] | + + + | Organization | [facility] | | | and [place] [...] [place] | | | | | [address] | | + + + + + | Floyd Herndon | ECON | NA | | | | | NA, | | + + + + + Care Team Providers + +------+ + | Care Track And Field Coach Name | Role | Phone | + [...] Description | +--------+--------+ + + + | 12/14/ | Refill | [facility] | Beltran Fields, | Medication Refill | | 2020 | | [facility] | [address] | | | | | [facility] | [place] [address] [place], | | | | | [address] | [place] [address] | | | | | [address] [place], | [phone] | | | | | [place] [address] | | | | | | [phone] | | | +--------+--------+ + + + [...] + | Diagnosis | + + | Essential hypertension, benign | + + documented in this encounter"
--- OUTSIDE RECORDS SUMMARY | ~2020-03-26 | XMS | Encounter Summary ---
Demographics + + + | Address | [address] | | | [place] [address] | + + + | Home Phone | | + + + | Preferred Language | Unknown | + + + | Marital Status | | + + + | Tenriism Affiliation | 1009 | + + + | Race | Unknown | + + + | Ethnic Group | Unknown | + + + Author + + + | Author | [facility] | | | and [place] | + + + | Organization | [facility] | | | and [place] [...] [place] | | | | | [address] | | + + + + + | Floyd Herndon | ECON | NA | | | | | NA, | | + + + + + Care Team Providers + +------+ + | Care Marine Structural Welder Name | Role | Phone | + +------+ + | Beltran Fields MD | PCP | | + +------+ + Reason for Visit + + + | Reason | Comments | + + + | Medication Orders | Metoprolol | + + + Encounter Details +--------+--------+ + + + | Date | Type | Department | Care Team | Description | +--------+--------+ + + + | 02/03/ | Refill | [facility] [place] [facility] | Beltran Fields, | Medication Orders | | 2016 | | MEDICINE [address] | [address] | (Metoprolol) | | | | [facility] | [address], | | | | | [place] [address] | [place] [address] | | | | | [phone] | [phone] | | | | | | | [...] | + + | Essential hypertension, benign - Primary | + + documented in this encounter"
--- OUTSIDE RECORDS SUMMARY | ~2020-03-26 | XMS | Encounter Summary ---
Demographics + + + | Address | [address] | | | [place] [address] | + + + | Home Phone | | + + + | Preferred Language | Unknown | + + + | Marital Status | | + + + | Confucianism Affiliation | 1009 | + + + | Race | Unknown | + + + | Ethnic Group | Unknown | + + + Author + + + | Author | [facility] | | | and [place] | + + + | Organization | [facility] | | | and [...] [place] | | | | | [address] | | + + + + + | Floyd Herndon | ECON | NA | | | | | NA, | | + + + + + Care Team Providers + +------+ + | Care Fly Frame Tender Name | Role | Phone | + +------+ + | Beltran Fields MD | PCP | | + +------+ + Reason for Visit + + + | Reason | Comments | + + + | Appointment | | + + + Encounter Details +--------+ + + + + | Date | Type | Department | Care Team | Description | +--------+ + + + + | 07/18/ | Telephone | [facility] | Jordin Padron, | Appointment | | 2014 | | [address] | MD [address] | | | | | [place] | [place] | | | | | [address] | [address] | | | | | [phone] | | | +--------+ + + + [...]
--- OUTSIDE RECORDS SUMMARY | ~2020-03-26 | XMS | Encounter Summary ---
Demographics + + + | Address | [address] | | | [place] [address] | + + + | Home Phone | | + + + | Preferred Language | Unknown | + + + | Marital Status | | + + + | Taoist Affiliation | 1009 | + + + | Race | Unknown | + + + | Ethnic Group | Unknown | + + + Author + + + | Author | [facility] | | | and [place] | + + + | Organization | [facility] | | | and [place] [...] [place] | | | | | [address] | | + + + + + | Floyd Hernodn | ECON | NA | | | | | NA, | | + + + + + Care Team Providers + +------+ + | Care Film Recordist Name | Role | Phone | + [...] Description | +--------+--------+ + + + | 01/14/ | Refill | [facility] [place] [facility] | Beltran Fields, | Medication Refill | | 2015 | | MEDICINE [facility] All | [address] | | | | | [place] | [address] [place], | | | | | [place] [address] | [place] [address] | | | | | [phone] | [phone] | | | | | | | [...]
--- OUTSIDE RECORDS SUMMARY | ~2020-03-26 | XMS | Encounter Summary ---
Demographics + + + | Address | [address] | | | [place] [address] | + + + | Home Phone | | + + + | Preferred Language | Unknown | + + + | Marital Status | | + + + | Yazdanism Affiliation | 1009 | + + + | Race | Unknown | + + + | Ethnic Group | Unknown | + + + Author + + + | Author | [facility] | | | and [place] | + + + | Organization | [facility] | | | [...] [place] | | | | | [address] | | + + + + + | Floyd Herndon | ECON | NA | | | | | NA, | | + + + + + Care Team Providers + +------+ + | Care Program Production Specialist Name | Role | Phone | + +------+ + | Beltran Fields MD | PCP | | + +------+ + Reason for Visit + + + | Reason | Comments | + + + | Lab Order | | + + + Encounter Details +--------+ + + + + | Date | Type | Department | Care Team | Description | +--------+ + + + + | 03/11/ | Telephone | [facility] | Beltran Fields, | Lab Order | | 2014 | | MEDICINE [address] | [address] | | | | | [address] | [address] [place], | | | | | [place] [address] | [place] [address] | | | | | [phone] | [phone] | | | | | | | [...]
--- OUTSIDE RECORDS SUMMARY | ~2020-03-26 | XMS | Encounter Summary ---
Demographics + + + | Address | [address] | | | [place] [address] | + + + | Home Phone | | + + + | Preferred Language | Unknown | + + + | Marital Status | | + + + | Advent Affiliation | 1009 | + + + | Race | Unknown | + + + | Ethnic Group | Unknown | + + + Author + + + | Author | [facility] | | | and [place] | + + + | Organization | [facility] | | | and [place] [...] [place] | | | | | [address] | | + + + + + | Floyd Herndon | ECON | NA | | | | | NA, | | + + + + + Care Team Providers + +------+ + | Care Dog Control Officer Name | Role | Phone | + [...] Description | +--------+--------+ + + + | 03/24/ | Refill | [facility] [place] [facility] | Beltran Fields, | Medication Refill | | 2012 | | MEDICINE [facility] All | [address] [place] [address] | | | | | [facility] | [address] [place], | | | | | [place] [address] | [place] [address] | | | | | [phone] | [phone] | | | | | | | [...]
--- OUTSIDE RECORDS SUMMARY | ~2020-03-26 | XMS | Encounter Summary ---
Demographics + + + | Address | [address] | | | [place] [address] | + + + | Home Phone | | + + + | Preferred Language | Unknown | + + + | Marital Status | | + + + | Restorationist Affiliation | 1009 | + + + | Race | Unknown | + + + | Ethnic Group | Unknown | + + + Author + + + | Author | [facility] | | | and [place] | + + + | Organization | [facility] | | | and [place] [...] [place] | | | | | [address] | | + + + + + | Floyd Herndon | ECON | NA | | | | | NA, | | + + + + + Care Team Providers + +------+ + | Care Keypunch Operator Name | Role | Phone | [...] Description | +--------+--------+ + + + | 11/11/ | Refill | [facility] [place] [facility] | Beltran Fields, | Medication Refill | | 2014 | | MEDICINE [facility] All | [address] [place] [address] | | | | | [facility] | [address] [place], | | | | | [place] [address] | [place] [address] | | | | | [phone] | [phone] | | | | | | | [...]
--- OUTSIDE RECORDS SUMMARY | ~2020-03-26 | XMS | Encounter Summary ---
Demographics + + + | Address | [address] | | | [place] [address] | + + + | Home Phone | | + + + | Preferred Language | Unknown | + + + | Marital Status | | + + + | Anglican Affiliation | 1009 | + + + | Race | Unknown | + + + | Ethnic Group | Unknown | + + + Author + + + | Author | [facility] | | | and [place] | + + + | Organization | [facility] | | | and [...] [place] | | | | | [address] | | + + + + + | Floyd Herndon | ECON | NA | | | | | NA, | | + + + + + Care Team Providers + +------+ + | Care Bean Roaster Name | Role | Phone | + [...] Description | +--------+--------+ + + + | 11/16/ | Refill | [facility] [place] [facility] | Beltran Fields, | Medication Refill | | 2013 | | MEDICINE [facility] All | [address] | | | | | [facility] | [address] [place], | | | | | [place] [address] | [place] [address] | | | | | [phone] | [phone] | | | | | | | [...] + | Diagnosis | + + | Hyperlipidemia - Primary Other and unspecified hyperlipidemia | + + documented in this encounter"
--- OUTSIDE RECORDS SUMMARY | ~2020-03-26 | XMS | Encounter Summary ---
Demographics + + + | Address | [address] | | | [place] [address] | + + + | Home Phone | | + + + | Preferred Language | Unknown | + + + | Marital Status | | + + + | Lutheran Affiliation | 1009 | + + + | Race | Unknown | + + + | Ethnic Group | Unknown | + + + Author + + + | Author | [facility] | | | and [place] | + + + | Organization | [facility] | | | and [place] [...] [place] | | | | | [address] | | + + + + + | Floyd Herndon | ECON | NA | | | | | NA, | | + + + + + Care Team Providers + +------+ + | Care Lining Sewer Name | Role | Phone | + [...] Description | +--------+--------+ + + + | 02/11/ | Refill | [facility] [place] [facility] | Beltran Fields, | Medication Refill | | 2014 | | MEDICINE [facility] All | [address] [place] [address] | | | | | [facility] | [address] [place], | | | | | [place] [address] | [place] [address] | | | | | [phone] | [phone] | | | | | | | [...]
--- OUTSIDE RECORDS SUMMARY | ~2020-03-26 | XMS | Encounter Summary ---
Demographics + + + | Address | [address] | | | [place] [address] | + + + | Home Phone | | + + + | Preferred Language | Unknown | + + + | Marital Status | | + + + | Congregational Affiliation | 1009 | + + + | Race | Unknown | + + + | Ethnic Group | Unknown | + + + Author + + + | Author | [facility] | | | and [place] | + + + | Organization | [facility] | | | and [place] [...] [place] | | | | | [address] | | + + + + + | Floyd Herndon | ECON | NA | | | | | NA, | | + + + + + Care Team Providers + +------+ + | Care Account Collector Name | Role | Phone | + [...] | | 2020 | | [facility] | [address] | | | | | MEDICINE [place] | [address] [place], | | | | | [address] | [place] [address] | | | | | [address] [place], | [phone] | | | | | [place] [address] | | | | | | [phone] | | | +--------+--------+ + + + [...]
--- OUTSIDE RECORDS SUMMARY | ~2020-03-26 | XMS | Encounter Summary ---
Demographics + + + | Address | [address] | | | [place] [address] | + + + | Home Phone | | + + + | Preferred Language | Unknown | + + + | Marital Status | | + + + | Mandaen Affiliation | 1009 | + + + | Race | Unknown | + + + | Ethnic Group | Unknown | + + + Author + + + | Author | [facility] | | | and [place] | + + + | Organization | [facility] | | | and [place] [...] [place] | | | | | [address] | | + + + + + | Floyd Herndon | ECON | NA | | | | | NA, | | + + + + + Care Team Providers + +------+ + | Care Flow Manager Name | Role | Phone | + +------+ + | Beltran Fields MD | PCP | | + +------+ + Reason for Visit + + + | Reason | Comments | + + + | Appointment | SCHEDULE APPT | + + + Encounter Details +--------+ + + + + | Date | Type | Department | Care Team | Description | +--------+ + + + + | 10/15/ | Telephone | [facility] | Jordin Padron, | Appointment | | 2015 | | [address] | MD [address] | (SCHEDULE APPT) | | | | [place] | [place] | | | | | [address] | [id number] | | | | | [phone] | | | +--------+ + + + [...]
--- OUTSIDE RECORDS SUMMARY | ~2020-03-26 | XMS | Clinical Summary ---
Demographics + + + | Address | [address] | | | [place] [address] | + + + | Home Phone | | + + + | Preferred Language | Unknown | + + + | Marital Status | | + + + | Sabianist Affiliation | 1009 | + + + | Race | Unknown | + + + | Ethnic Group | Unknown | + + + Author + + + | Author | [facility] | | | and [place] | + + + | Organization | [facility] | | | and [place] | [...] [place], [place] | | | | | [address] | | + + + + + | Floyd Herndon | ECON | NA | | | | | NA, | | + + + + + Care Team Providers + +------+ + | Care Fast Food Manager Name | Role | Phone | + +------+ + | Beltran Fields MD | PCP | | + +------+ + Allergies + + + + + + | Active Allergy | Reactions | Severity | Noted | Comments | | | | | Date | | + + + + + + | Diltiazem | Rash | Medium | 11/09/20 | | | | | | 14 | | + + + + + + | Diltiazem Hcl | Rash | Low | 04/21/20 | | | | | | 10 | | + + + + + + Medications + + + +---------+------+------+-------+ | Medication | Sig | Dispensed | Refills | Star | End | Statu | | | | | | t | Date | s | | | | | | Date | | | + + + +---------+------+------+-------+ | Sullivan-3 Fatty | two capsules by | | 0 | 07/16 | | Activ | | Acids (EQL FISH OIL) | mouth daily | | | 01/04 | | e | | 1000 MG CAPS | | | | 12 | | | + + + +---------+------+------+-------+ | Omeprazole | TBEC one tablet by | | 0 | 09/1 | | Activ | | Magnesium (PRILOSEC | mouth daily | | | 2/20 | | e | | OTC PO) | | | | 12 | | | + + + +---------+------+------+-------+ | multivitamin | one tablet by mouth | | 0 | 09/1 | | Activ | | (THERAGRAN) per | daily | | | 2/20 | | e | | tablet | | | | 12 | | | + + + +---------+------+------+-------+ | UNCODED MEDICATION | Diagnosis: | 1 | 0 | 05/1 | | Activ | | | Obstructive Sleep | Device | | 0/20 | | e | | | ApneaICD-9: | | | 13 | | | | | 327.23Length of | | | | | | | | Need: 99 Months | | | | | | + + + +---------+------+------+-------+ | | Take 1 tablet by | 30 | 0 | 03/2 | | Activ | | HYDROcodone-acetamin | mouth every 6 hours | tablet | | 06/03 | | e | | ophen (NORCO) 5-325 | as needed for Pain. | | | 18 | | | | mg per | | | | | | | | tabletIndications: | | | | | | | | Chronic low back | | | | | | | | pain without | | | | | | | | sciatica, | | | | | | | | unspecified back | | | | | | | | pain laterality | | | | | | | + + + +---------+------+------+-------+ | fluticasone | 2 sprays by Nasal | 16 g | 2 | 01/3 | | Activ | | (FLONASE) 50 | route Daily. | | | 0/20 | | e | | mcg/nasal spray | | | | 20 | | | + + + +---------+------+------+-------+ | potassium chloride | TAKE ONE TABLET BY | 90 | 1 | 02/2 | | Activ | | (KLOR-CON M20) 20 | MOUTH EVERY DAY | tablet | | 7/ | | e | | mEq ER tablet | | | | 20 | | | + + + +---------+------+------+-------+ | allopurinol | Take one tablet by | 90 | 1 | 03/1 | | Activ | | (ZYLOPRIM) 300 mg | mouth every day | tablet | | 0/20 | | e | | tabletIndications: | | | | 20 | | | | History of gout | | | | | | | + + + +---------+------+------+-------+ | atorvaSTATin | Take one tablet by | 90 | 1 | 03/1 | | Activ | | (LIPITOR) 40 mg | mouth every day | tablet | | 0/20 | | e | | tabletIndications: | | | | 20 | | | | Mixed hyperlipidemia | | | | | | | + + + +---------+------+------+-------+ | flecainide | One po bid | 180 | 1 | 03/1 | | Activ | | (TAMBOCOR) 100 mg | | tablet | | 0/20 | | e | | tabletIndications: | | | | 20 | | | | Atrial fibrillation | | | | | | | | with rapid | | | | | | | | ventricular response | | | | | | | | (HCC) | | | | | | | + + + +---------+------+------+-------+ | | TAKE ONE TABLET BY | 90 | 1 | 03/1 | | Activ | | hydroCHLOROthiazide | MOUTH EVERY DAY | tablet | | 0/20 | | e | | 50 mg | | | | 20 | | | | tabletIndications: | | | | | | | | Essential | | | | | | | | hypertension, benign | | | | | | | + + + +---------+------+------+-------+ | metFORMIN | One po bid | 180 | 1 | 03/1 | | Activ | | (GLUCOPHAGE) 1000 MG | | tablet | | 0/20 | | e | | tabletIndications: | | | | 20 | | | | Type 2 diabetes | | | | | | | | mellitus with | | | | | | | | hyperglycemia, | | | | | | | | without long-term | | | | | | | | current use of | | | | | | | | insulin (HCC) | | | | | | | + + + +---------+------+------+-------+ | metoprolol | One po qd | 90 | 1 | 03/1 | | Activ | | tartrate (LOPRESSOR) | | tablet | | 0/20 | | e | | 25 mg | | | | 20 | | | | tabletIndications: | | | | | | | | Essential | | | | | | | | hypertension, benign | | | | | | | + + + +---------+------+------+-------+ | metoprolol | One po qd | 90 | 0 | 03/ | | Activ | | tartrate (LOPRESSOR) | | tablet | | 0/20 | | e | | 50 mg | | | | 20 | | | | tabletIndications: | | | | | | | | Essential | | | | | | | | hypertension, benign | | | | | | | + + + +---------+------+------+-------+ Active Problems + + + | Problem | Noted Date | + + + | History of gout | 02/08/2018 | + + + | S/P prostatectomy | 02/02/2017 | + + + | Elevated glucose | 02/02/2017 | + + + | Type 2 diabetes mellitus with hyperglycemia | 01/29/2016 | + + + | Status post prostatectomy | 11/22/2014 | + + + | HTN (hypertension) | 11/09/2014 | + + + | Obesity, unspecified | 11/09/2014 | + + + | Preventative health care | 10/17/2013 | + + + + + | Overview: PSA Date Result | | 02/24/19 0.015 | | 12/06/15 0.014 | | 07/26/14 10.65 | | 05/08/14 11.88 | | 10/27/13 12.91 | | 03/30/12 6.52 27% | | 10/20/11 7.43 26% | | 08/28/10 5.00 25% | | 06/23/10 4.67 26% | | 03/27/10 8.75 | | 05/31/09 5.44 25% | | 11/26/08 4.44 | | | | Prostate biopsy 04/28/12 [facility] | | 09/04/09 [place] Benign | | | | PCA3 04/04/12 [place] Negative | | | | Urine cytology 08/21/14 [facility] Negative | | 10/27/10 [facility] Negative | | | | CT abd/pel 09/01/10 [facility] | + + + + + | IGT (impaired glucose tolerance) | 03/24/2013 | + + + | Osteoarthritis | 09/08/2012 | + + + | Paroxysmal A-fib | 09/08/2012 | + + + | ATRIAL FIBRILLATION WITH RAPID VENTRICULAR RESPONSE | 04/06/2012 | + + + | EUSTACHIAN TUBE DYSFUNCTION | 08/26/2011 | + + + | LUMBAR STRAIN, ACUTE | 08/26/2011 | + + + | Hyperglycemia | 04/06/2011 | + + + | JEAN (obstructive sleep apnea) | 01/19/2011 | + + + | Essential hypertension, benign | 11/03/2010 | + + + | INTERMITTENT VERTIGO | 11/03/2010 | + + + | Colon polyp | | + + + + + | Overview: ABILIO [id number] Decision | + + + +---+ | Hyperlipidemia | | + +---+ Resolved Problems + + + + | Problem | Noted | Resolved | | | Date | Date | + + + + | Anemia | 11/14/20 | | | | 15 | 9 | + + + + | Hematuria, unspecified | 11/09/20 | | | | 14 | 9 | + + + + | Pulmonary emboli | 11/09/20 | | | | 14 | 9 | + + + + | BPH (benign prostatic hyperplasia) | 09/08/20 | | | | 12 | 9 | + + + + | Otitis media, serous | 04/06/20 | | | | 11 | 9 | + + + + | UNSPECIFIED VITAMIN D DEFICIENCY | 04/06/20 | | | | 11 | 9 | + + + + + + | Overview: ICD-10 Record update | + + + + + + | Acute bronchitis | 01/31/20 | | | | 11 | 9 | + + + + | [place] [facility] 02/06/08 - 03/08/08 | 03/08/20 | | | | 08 | 9 | + + + + | Depression | | | | | | 9 | + + + + | PSA, INCREASED | | | | | | 9 | + + + + | Gross hematuria | | | | | | 9 | + + + + | BENIGN PROSTATIC HYPERTROPHY, WITH OBSTRUCTION | | | | | | 9 | + + + + Encounters +--------+ + + + + | Date | Type | Specialty | Care Team | Description | +--------+ + + + + | 02/28/ | Abstract | Family Medicine | Beltran Fields, | | | 2019 | | | MD | | +--------+ + + + + | 02/22/ | Telephone | Family Medicine | Beltran Fields, | | | 2019 | | | MD | | +--------+ + + + + | 01/22/ | Office | Family Medicine | Beltran Fields, | Type 2 diabetes | | 2019 | Visit | | MD | mellitus with | | | | | | hyperglycemia, | | | | | | without long-term | | | | | | current use of | | | | | | insulin (HCC) | | | | | | (Primary Dx); | | | | | | History of gout; | | | | | | Mixed | | | | | | hyperlipidemia; | | | | | | Essential | | | | | | hypertension, | | | | | | benign; ATRIAL | | | | | | FIBRILLATION WITH | | | | | | RAPID VENTRICULAR | | | | | | RESPONSE; BPH with | | | | | | obstruction/lower | | | | | | urinary tract | | | | | | symptoms | +--------+ + + + + | 01/10/ | Refill | Family Medicine | Beltran Fields, | Medication Refill | | 2019 | | | MD | | +--------+ + + + + from Last 3 Months Immunizations + + + + | Name | Administration Dates | Next Due | + + + + | INFLUENZA 66 Y OR >, | 08/06/2018, 08/15/2017, 09/11/2016, | | | TRIVALENT HIGH-DOSE | 08/26/2015, 09/02/2014, 09/03/2013, | | | | 11/03/2012 | | + + + + | INFLUENZA PF | 10/04/2011 | | | TRIVALENT(PED/ADOL/A | | | | DULT)GALLITOKT | | | + + + + | INFLUENZA QUADR | 09/14/2016, 08/29/2014 | | | W/PRES | | | | (PED/ADOL/ADULT) | | | | MULTIDOSE | | | + + + + | INFLUENZA, [id number], | 11/26/2009 | | | UNSPECIFIED | | | + + + + | INFLUENZA, | 09/07/2010, 07/22/2009, 09/15/2008, | | | UNSPECIFIED | 08/23/2007 | | | FORMULATION | | | + + + + | INFLUENZA, | 07/26/2013 | | | W/Preservative | | | + + + + Family History + + +------+ + | Medical History | Relation | Name | Comments | + + +------+ + | Prostate cancer | Father | | age 77 | + + +------+ + | Cancer | Sister | | | + + +------+ + + +------+ + + | Relation | Name | Status | Comments | + +------+ + + | Father | | | | + +------+ + + | Mother | | | | + +------+ + + | Sister | | | | + +------+ + + Social History + +-------+ +--------+------+ [...] recent travel history available. | + + Last Filed Vital Signs + + + + + | Vital Sign | Reading | Time Taken | Comments | + + + + + | Blood Pressure | 120/74 | 01/23/2020 2:02 PM | | | | | PDT | | + + + + + | Pulse | 60 | 01/23/2020 2:02 PM | | | | | PDT | | + + + + + | Temperature | 36.4 C (97.5 F) | 01/23/2020 2:02 PM | | | | | PDT | | + + + + + | Respiratory Rate | 16 | 01/23/2020 2:02 PM | | | | | PDT | | + + + + + | Oxygen Saturation | 96% | 01/23/2020 2:02 PM | | | | | PDT | | + + + + + | Inhaled Oxygen | - | - | | | Concentration | | | | + + + + + | Weight | 109.8 kg (242 lb) | 01/23/2020 2:02 PM | | | | | PDT | | + + + + + | Height | 177.8 cm (5' 10") | 01/23/2020 2:02 PM | | | | | PDT | | + + + + + | Body Mass Index | 34.72 | 01/23/2020 2:02 PM | | | | | PDT | | + + + + + Plan of Treatment + + + + + | Health Maintenance | Due Date | Last Done | Comments | + + + + + | Hepatitis C | | | | | Screening | 6 | | | + + + + + | Vaccine: | | | | | Dtap/Tdap/Td (1 - | 7 | | | | Tdap) | | | | + + + + + | Colorectal Cancer | | | | | Screening | 6 | | | | (Colonoscopy) | | | | + + + + + | Vaccine: Zoster (1 | | | | | of 2) | 0 | | | + + + + + | Vaccine: | | | | | Pneumococcal 65+ (1 | 1 | | | | of 2 - PCV13) | | | | + + + + + | Diabetic Foot Exam | | 02/02/2017, 02/02/2017 | | | | 8 | | | + + + + + | Diabetic Eye Exam | | 02/02/2017 | | | | 9 | | | + + + + + | Adult Annual | | 02/22/2019, 02/08/2018 | | | Wellness Visit | 0 | | | + + + + + | Microalbumin | | 02/24/2019 | | | Screening | 0 | | | + + + + + | Vaccine: Influenza | | 08/06/2018, 08/15/2017, | | | (Season Ended) | 0 | 09/14/2016, Additional history | | | | | exists | | + + + + + | Hemoglobin A1c | | 02/23/2020, 02/24/2019, | | | Screening | 0 | 11/14/2015, Additional history | | | | | exists | | + + + + + Procedures + +--------+ + + + | Procedure Name | Priori | Date/Time | Associated Diagnosis | Comments | | | ty | | | | + +--------+ + + + | LABS - EXTERNAL SCAN | | 02/23/2020 | | Results for this | | | | 12:00 AM | | procedure are in the | | | | PDT | | results section. | + +--------+ + + + | URINALYSIS, REFLEX | Routin | 02/23/2020 | | Results for this | | MICROSCOPIC AND/OR | e | | | procedure are in the | | CULTURE | | | | results section. | + +--------+ + + + | CBC WITH | Routin | 02/23/2020 | | Results for this | | DIFFERENTIAL | e | | | procedure are in the | | | | | | results section. | + +--------+ + + + | COMPREHENSIVE | Routin | 02/23/2020 | | Results for this | | METABOLIC PANEL | e | | | procedure are in the | | | | | | results section. | + +--------+ + + + | LIPID PANEL | Routin | 02/23/2020 | | Results for this | | | e | | | procedure are in the | | | | | | results section. | + +--------+ + + + | HEMOGLOBIN A1C | Routin | 02/23/2020 | | Results for this | | | e | | | procedure are in the | | | | | | results section. | + +--------+ + + + | EXTERNAL LAB: PSA | Routin | 02/23/2020 | | Results for this | | | e | | | procedure are in the | | | | | | results section. | + +--------+ + + + | EXTERNAL LAB: | Routin | 02/23/2020 | | Results for this | | URINALYSIS | e | | | procedure are in the | | | | | | results section. | + +--------+ + + + | EXTERNAL LAB: CBC | Routin | 02/23/2020 | | Results for this | | | e | | | procedure are in the | | | | | | results section. | + +--------+ + + + | EXTERNAL LAB: BUN | Routin | 02/23/2020 | | Results for this | | | e | | | procedure are in the | | | | | | results section. | + +--------+ + + + | EXTERNAL LAB: | Routin | 02/23/2020 | | Results for this | | GLUCOSE | e | | | procedure are in the | | | | | | results section. | + +--------+ + + + | EXTERNAL LAB: ALT | Routin | 02/23/2020 | | Results for this | | | e | | | procedure are in the | | | | | | results section. | + +--------+ + + + | EXTERNAL LAB: AST | Routin | 02/23/2020 | | Results for this | | | e | | | procedure are in the | | | | | | results section. | + +--------+ + + + | EXTERNAL LAB: | Routin | 02/23/2020 | | Results for this | | ALKALINE PHOSPHATASE | e | | | procedure are in the | | | | | | results section. | + +--------+ + + + | EXTERNAL LAB: | Routin | 02/23/2020 | | Results for this | | BILIRUBIN, TOTAL | e | | | procedure are in the | | | | | | results section. | + +--------+ + + + | EXTERNAL LAB: | Routin | 02/23/2020 | | Results for this | | ALBUMIN | e | | | procedure are in the | | | | | | results section. | + +--------+ + + + | EXTERNAL LAB: | Routin | 02/23/2020 | | Results for this | | PROTEIN, TOTAL | e | | | procedure are in the | | | | | | results section. | + +--------+ + + + | EXTERNAL LAB: | Routin | 02/23/2020 | | Results for this | | CALCIUM | e | | | procedure are in the | | | | | | results section. | + +--------+ + + + | EXTERNAL LAB: CARBON | Routin | 02/23/2020 | | Results for this | | DIOXIDE | e | | | procedure are in the | | | | | | results section. | + +--------+ + + + | EXTERNAL LAB: | Routin | 02/23/2020 | | Results for this | | CHLORIDE | e | | | procedure are in the | | | | | | results section. | + +--------+ + + + | EXTERNAL LAB: | Routin | 02/23/2020 | | Results for this | | POTASSIUM | e | | | procedure are in the | | | | | | results section. | + +--------+ + + + | EXTERNAL LAB: SODIUM | Routin | 02/23/2020 | | Results for this | | | e | | | procedure are in the | | | | | | results section. | + +--------+ + + + | EXTERNAL LAB: | Routin | 02/23/2020 | | Results for this | | TRIGLYCERIDES | e | | | procedure are in the | | | | | | results section. | + +--------+ + + + | EXTERNAL LAB: | Routin | 02/23/2020 | | Results for this | | CHOLESTEROL, HDL | e | | | procedure are in the | | | | | | results section. | + +--------+ + + + | EXTERNAL LAB: | Routin | 02/23/2020 | | Results for this | | CHOLESTEROL, TOTAL | e | | | procedure are in the | | | | | | results section. | + +--------+ + + + | EXTERNAL LAB: | Routin | 02/23/2020 | | Results for this | | CHOLESTEROL, LDL | e | | | procedure are in the | | | | | | results section. | + +--------+ + + + | EXTERNAL LAB: EGFR | Routin | 02/23/2020 | | Results for this | | | e | | | procedure are in the | | | | | | results section. | + +--------+ + + + from Last 3 Months Results External Lab: [facility] (02/23/2020) + +-------+ + + + | Component | Value | Ref Range | Performed | Pathologist | | | | | At | Signature | + +-------+ + + + | BUN, | 11 | 6 - 23 | REFERENCE | | | External | | | LAB | | | | | | [facility] | | + +-------+ + + + + + + + + | Performing | Address | City/State/Zipcode | Phone Number | | Organization | | | | + + + + + | REFERENCE LAB | [address] | [place], [place] | [phone] | | [facility] | | [address] | | + + + + + External Lab: Glucose (02/23/2020) + +-------+ + + + | Component | Value | Ref Range | Performed | Pathologist | | | | | At | Signature | + +-------+ + + + | Glucose, | 98 | 70 - 100 | REFERENCE | | | External | | | LAB | | | | | | [facility] | | + +-------+ + + + + + + + + | Performing | Address | City/State/Zipcode | Phone Number | | Organization | | | | + + + + + | REFERENCE LAB | [address] | [place] | [phone] | | [facility] | | [address] | | + + + + + External Lab: CAL (02/23/2020) + +-------+ + + + | Component | Value | Ref Range | Performed | Pathologist | | | | | At | Signature | + +-------+ + + + | PSA, | 0.014 | 0 - 4 | REFERENCE | | | External | | | LAB | | | | | | [facility] | | + +-------+ + + + + + + + + | Performing | Address | City/State/Zipcode | Phone Number | | Organization | | | | + + + + + | REFERENCE LAB | [address] [facility] | [place] | [phone] | | [facility] | | [address] | | + + + + + External Lab: ALT (02/23/2020) + +-------+ + + + | Component | Value | Ref Range | Performed | Pathologist | | | | | At | Signature | + +-------+ + + + | ALT, | 15 | 7 - 52 | REFERENCE | | | External | | | LAB | | | | | | [facility] | | + +-------+ + + + + + + + + | Performing | Address | City/State/Zipcode | Phone Number | | Organization | | | | + + + + + | REFERENCE LAB | [address] [facility] | [place] | [phone] | | [facility] | | [address] | | + + + + + External Lab: DEMOND (02/23/2020) + +-------+ + + + | Component | Value | Ref Range | Performed | Pathologist | | | | | At | Signature | + +-------+ + + + | AST, | 15 | 13 - 39 | REFERENCE | | | External | | | LAB | | | | | | [facility] | | + +-------+ + + + + + + + + | Performing | Address | City/State/Zipcode | Phone Number | | Organization | | | | + + + + + | REFERENCE LAB | [address] [facility] | [place], [place] | [phone] | | [facility] | | [address] | | + + + + + External Lab: Alkaline Phosphatase (02/23/2020) + +-------+ + + + | Component | Value | Ref Range | Performed | Pathologist | | | | | At | Signature | + +-------+ + + + | ALP, | 68 | 31 - 120 | REFERENCE | | | External | | | LAB | | | | | | [facility] | | + +-------+ + + + + + + + + | Performing | Address | City/State/Zipcode | Phone Number | | Organization | | | | + + + + + | REFERENCE LAB | [address] | [place] | [phone] | | [facility] | | [address] | | + + + + + External Lab: Bilirubin, Total (02/23/2020) + +-------+ + + + | Component | Value | Ref Range | Performed | Pathologist | | | | | At | Signature | + +-------+ + + + | Bilirubin, | 0.9 | 0 - 1.2 | REFERENCE | | | Total, | | | LAB | | | External | | | [facility] | | + +-------+ + + + + + + + + | Performing | Address | City/State/Zipcode | Phone Number | | Organization | | | | + + + + + | REFERENCE LAB | [address] [facility] | [place], [place] | [phone] | | [facility] | | [address] | | + + + + + External Lab: Albumin (02/23/2020) + +-------+ + + + | Component | Value | Ref Range | Performed | Pathologist | | | | | At | Signature | + +-------+ + + + | Albumin, | 4.2 | 3.5 - 5 | REFERENCE | | | External | | | LAB | | | | | | [facility] | | + +-------+ + + + + + + + + | Performing | Address | City/State/Zipcode | Phone Number | | Organization | | | | + + + + + | REFERENCE LAB | [address] | [place] | [phone] | | [facility] | | [address] | | + + + + + External Lab: Protein, Total (02/23/2020) + +-------+ + + + | Component | Value | Ref Range | Performed | Pathologist | | | | | At | Signature | + +-------+ + + + | Protein, | 6.7 | 6 - 8.3 | REFERENCE | | | Total, | | | LAB | | | External | | | [facility] | | + +-------+ + + + + + + + + | Performing | Address | City/State/Zipcode | Phone Number | | Organization | | | | + + + + + | REFERENCE LAB | [address] [facility] | [place] | [phone] | | [facility] | | [address] | | + + + + + External Lab: Calcium (02/23/2020) + +-------+ + + + | Component | Value | Ref Range | Performed | Pathologist | | | | | At | Signature | + +-------+ + + + | Calcium, | 9.3 | 8.5 - 10.3 | REFERENCE | | | External | | | LAB | | | | | | [facility] | | + +-------+ + + + + + + + + | Performing | Address | City/State/Zipcode | Phone Number | | Organization | | | | + + + + + | REFERENCE LAB | [address] | [place] | [phone] | | [facility] | | [address] | | + + + + + External Lab: Carbon Dioxide (02/23/2020) + +-------+ + + + | Component | Value | Ref Range | Performed | Pathologist | | | | | At | Signature | + +-------+ + + + | Carbon | 30 | 19 - 31 | REFERENCE | | | Dioxide, | | | LAB | | | External | | | [facility] | | + +-------+ + + + + + + + + | Performing | Address | City/State/Zipcode | Phone Number | | Organization | | | | + + + + + | REFERENCE LAB | [address] | [place] | [phone] | | [facility] | | [address] | | + + + + + External Lab: Timmy (02/23/2020) + +-------+ + + + | Component | Value | Ref Range | Performed | Pathologist | | | | | At | Signature | + +-------+ + + + | Chloride, | 99 | 95 - 112 | REFERENCE | | | External | | | LAB | | | | | | [facility] | | + +-------+ + + + + + + + + | Performing | Address | City/State/Zipcode | Phone Number | | Organization | | | | + + + + + | REFERENCE LAB | [address] | [place] | [phone] | | [facility] | | [address] | | + + + + + External Lab: Potassium (02/23/2020) + +-------+ + + + | Component | Value | Ref Range | Performed | Pathologist | | | | | At | Signature | + +-------+ + + + | Potassium, | 4.0 | 3.6 - 5.1 | REFERENCE | | | External | | | LAB | | | | | | [facility] | | + +-------+ + + + + + + + + | Performing | Address | City/State/Zipcode | Phone Number | | Organization | | | | + + + + + | REFERENCE LAB | [address] | [place] | [phone] | | [facility] | | [address] | | + + + + + External Lab: Sodium (02/23/2020) + +-------+ + + + | Component | Value | Ref Range | Performed | Pathologist | | | | | At | Signature | + +-------+ + + + | Sodium, | 138 | 132 - 143 | REFERENCE | | | External | | | LAB | | | | | | [facility] | | + +-------+ + + + + + + + + | Performing | Address | City/State/Zipcode | Phone Number | | Organization | | | | + + + + + | REFERENCE LAB | [address] | [place] | [phone] | | [facility] | | [address] | | + + + + + External Lab: Urinalysis (02/23/2020) + + + + + + | Component | Value | Ref Range | Performed | Pathologist | | | | | At | Signature | + + + + + + | UA Blood, | Negative | | REFERENCE | | | External | | | LAB | | | | | | [facility] | | + + + + + + | UA Glucose, | Normal | | REFERENCE | | | External | | | LAB | | | | | | [facility] | | + + + + + + | UA Ketones, | Negative | | REFERENCE | | | External | | | LAB | | | | | | [facility] | | + + + + + + | UA Ph, | 7 | 5 - 9 | REFERENCE | | | External | | | LAB | | | | | | [facility] | | + + + + + + | UA | Negative | | REFERENCE | | | Proteins, | | | LAB | | | External | | | [facility] | | + + + + + + | UA Specific | 1.015 | 1.005 - 1.03 | REFERENCE | | | [place], | | | LAB | | | External | | | [facility] | | + + + + + + | UA | Negative | | REFERENCE | | | Leukocyte | | | LAB | | | Esterase, | | | [facility] | | | External | | | | | + + + + + + + + + + + | Performing | Address | City/State/Zipcode | Phone Number | | Organization | | | | + + + + + | REFERENCE LAB | [address] [facility] | [place] | [phone] | | [facility] | | [id number] | | + + + + + External Lab: CBC (02/23/2020) + +-------+ + + + | Component | Value | Ref Range | Performed | Pathologist | | | | | At | Signature | + +-------+ + + + | WBC, | 6.8 | 4.5 - 11 | REFERENCE | | | External | | | LAB | | | | | | [facility] | | + +-------+ + + + | HGB, | 14.4 | 13.5 - 18 | REFERENCE | | | External | | | LAB | | | | | | [facility] | | + +-------+ + + + | HCT, | 43.1 | 41 - 50 | REFERENCE | | | External | | | LAB | | | | | | [facility] | | + +-------+ + + + | PLT, | 264 | 140 - 440 | REFERENCE | | | External | | | LAB | | | | | | [facility] | | + +-------+ + + + | Neutrophils | 54 | 39 - 80 | REFERENCE | | | %, | | | LAB | | | External | | | [facility] | | + +-------+ + + + | Lymphocytes | 36 | 24 - 44 | REFERENCE | | | %, | | | LAB | | | External | | | [facility] | | + +-------+ + + + | Monocytes | 7 | 0 - 12 | REFERENCE | | | %, External | | | LAB | | | | | | [facility] | | + +-------+ + + + | Eosinophils | 3 | 0 - 6 | REFERENCE | | | %, | | | LAB | | | External | | | [facility] | | + +-------+ + + + | RBC, | 4.86 | 4.3 - 5.7 | REFERENCE | | | External | | | LAB | | | | | | [facility] | | + +-------+ + + + | MCV, | 89 | 81 - 99 | REFERENCE | | | External | | | LAB | | | | | | [facility] | | + +-------+ + + + | RDW, | 14.4 | 10.5 - 16 | REFERENCE | | | External | | | LAB | | | | | | [facility] | | + +-------+ + + + + + + + + | Performing | Address | City/State/Zipcode | Phone Number | | Organization | | | | + + + + + | REFERENCE LAB | [address] [facility] | [place] | [phone] | | [facility] | | [address] | | + + + + + External Lab: Triglycerides (02/23/2020) + +-------+ + + + | Component | Value | Ref Range | Performed | Pathologist | | | | | At | Signature | + +-------+ + + + | Triglycerid | 132 | 30 - 150 | REFERENCE | | | es, | | | LAB | | | External | | | [facility] | | + +-------+ + + + + + | Specimen | + + | Blood | + + + + + + + | Performing | Address | City/State/Zipcode | Phone Number | | Organization | | | | + + + + + | REFERENCE LAB | [address] [facility] | [place] | [phone] | | [facility] | | [address] | | + + + + + External Lab: Cholesterol, HDL (02/23/2020) + + + + + + | Component | Value | Ref Range | Performed | Pathologist | | | | | At | Signature | + + + + + + | HDL | 28.2 (A) | 40 mg/dl | REFERENCE | | | Cholesterol | | | LAB | | | , External | | | [facility] | | + + + + + + + + | Specimen | + + | Blood | + + + + + + + | Performing | Address | City/State/Zipcode | Phone Number | | Organization | | | | + + + + + | REFERENCE LAB | [address] [facility] | [place] | [phone] | | [facility] | | [address] | | + + + + + External Lab: Cholesterol, Total (02/23/2020) + +-------+ + + + | Component | Value | Ref Range | Performed | Pathologist | | | | | At | Signature | + +-------+ + + + | Cholesterol | 116 | 200 mg/dl | REFERENCE | | | , Total, | | | LAB | | | External | | | [facility] | | + +-------+ + + + + + | Specimen | + + | Blood | + + + + + + + | Performing | Address | City/State/Zipcode | Phone Number | | Organization | | | | + + + + + | REFERENCE LAB | [facility] [facility] | [place] | [phone] | | [facility] | | [address] | | + + + + + External Lab: Cholesterol, LDL (02/23/2020) + +-------+ + + + | Component | Value | Ref Range | Performed | Pathologist | | | | | At | Signature | + +-------+ + + + | LDL | 61 | 100 | REFERENCE | | | Cholesterol | | | LAB | | | , Direct, | | | [facility] | | | External | | | | | + +-------+ + + + + + | Specimen | + + | Blood | + + + + + + + | Performing | Address | City/State/Zipcode | Phone Number | | Organization | | | | + + + + + | REFERENCE LAB | [address] | [place] | [phone] | | [facility] | | [address] | | + + + + + External Lab: eGFR (02/23/2020) + +-------+ + + + | Component | Value | Ref Range | Performed | Pathologist | | | | | At | Signature | + +-------+ + + + | eGFR, | 88 | 60 | REFERENCE | | | External | | | LAB | | | | | | [facility] | | + +-------+ + + + + + | Specimen | + + | Blood | + + + + + + + | Performing | Address | City/State/Zipcode | Phone Number | | Organization | | | | + + + + + | REFERENCE LAB | [address] [facility] | [place] | [phone] | | [facility] | | [address] | | + + + + + LABS - EXTERNAL SCAN (02/23/2020 12:00 AM PDT) + + + | Narrative | Performed At | + + + | Ordered by an | | | unspecified provider. | | + + + Lipid Panel (02/23/2020) + +-------+ + + + | Component | Value | Ref Range | Performed | Pathologist | | | | | At | Signature | + +-------+ + + + | Chol/HDL | 4.1 | 4.9 | REFERENCE | | | Ratio | | | LAB | | | | | | [facility] | | + +-------+ + + + | Non HDL | 88 | 130 | REFERENCE | | | Chol. | | | LAB | | | (LDL+VLDL) | | | [facility] | | + +-------+ + + + + + | Specimen | + + | Blood | + + + + + + + | Performing | Address | City/State/Zipcode | Phone Number | | Organization | | | | + + + + + | REFERENCE LAB | [address] [facility] | [place] | [phone] | | [facility] | | [address] | | + + + + + Urinalysis, Reflex Microscopic and/or Culture (02/23/2020) + + + + + + | Component | Value | Ref Range | Performed | Pathologist | | | | | At | Signature | + + + + + + | COLLECTION | Clean Catch | | REFERENCE | | | METHOD 1 | | | LAB | | | | | | [facility] | | + + + + + + | Color, | Yellow | Light Yellow, | REFERENCE | | | Urine | | Yellow | LAB | | | | | | [facility] | | + + + + + + | Clarity | Clear | | REFERENCE | | | | | | LAB | | | | | | [facility] | | + + + + + + | Bilirubin, | Negative | Negative | REFERENCE | | | Urine | | | LAB | | | | | | [facility] | | + + + + + + | Nitrite, | Negative | Negative | REFERENCE | | | Urine | | | LAB | | | | | | [facility] | | + + + + + + | Urobilinoge | Normal | < 0.2 mg/dL, | REFERENCE | | | n, Urine | | 1.0 mg/dL, 4.0 | LAB | | | | | mg/dL, Normal, | [facility] | | | | | 1.0 E.U./dL, | | | | | | 0.2 E.U./dL, | | | | | | 0.2 mg/dL, | | | | | | Negative, 1 | | | | | | mg/dL, <2.0 | | | | | | mg/dL | | | + + + + + + | HYALINE | 0 | 0 - 1 /LPF | REFERENCE | | | CASTS UA | | | LAB | | | | | | [facility] | | + + + + + + | Bacteria, | Negative | Negative /HPF | REFERENCE | | | Urine | | | LAB | | | | | | [facility] | | + + + + + + + + | Specimen | + + | Urine | + + + + + + + | Performing | Address | City/State/Zipcode | Phone Number | | Organization | | | | + + + + + | REFERENCE LAB | [address] [facility] | [place] | [phone] | | [facility] | | [address] | | + + + + + CBC with Differential (02/23/2020) + +-------+ + + + | Component | Value | Ref Range | Performed | Pathologist | | | | | At | Signature | + +-------+ + + + | MCH | 30.0 | 27.0 - 33.0 pg | REFERENCE | | | | | | LAB | | | | | | [facility] | | + +-------+ + + + | MCHC | 33.0 | 30.0 - 36.0 | REFERENCE | | | | | g/dL | LAB | | | | | | [facility] | | + +-------+ + + + | % Basophils | 0.0 | 0.0 - 2.0 % | REFERENCE | | | | | | LAB | | | | | | [facility] | | + +-------+ + + + + + | Specimen | + + | Blood | + + + + + + + | Performing | Address | City/State/Zipcode | Phone Number | | Organization | | | | + + + + + | REFERENCE LAB | [address] [facility] | [place] | [phone] | | [facility] | | [address] | | + + + + + Hemoglobin A1C (02/23/2020) + + + + + + | Component | Value | Ref Range | Performed | Pathologist | | | | | At | Signature | + + + + + + | Hemoglobin | 5.7Comment: Est Avg | 7.0 % | REFERENCE | | | A1c | Glucose: 117 | | LAB | | | | | | [facility] | | + + + + + + + + | Specimen | + + | Blood | + + + + + + + | Performing | Address | City/State/Zipcode | Phone Number | | Organization | | | | + + + + + | REFERENCE LAB | [address] [facility] | [place] | [phone] | | [facility] | | [address] | | + + + + + Comprehensive Metabolic Panel (02/23/2020) + +-------+ + + + | Component | Value | Ref Range | Performed | Pathologist | | | | | At | Signature | + +-------+ + + + | Anion Gap | 13 | 7 - 21 mmol/L | REFERENCE | | | | | | LAB | | | | | | [facility] | | + +-------+ + + + | Bun/Creatin | 12.9 | 6 - 28.6 | REFERENCE | | | ine | | | LAB | | | | | | [facility] | | + +-------+ + + + | Globulin | 2.5 | 1.8 - 3.5 | REFERENCE | | | | | | LAB | | | | | | [facility] | | + +-------+ + + + | Albumin/Orly | 1.7 | 1.1 - 2.4 | REFERENCE | | | bulin Ratio | | | LAB | | | | | | [facility] | | + +-------+ + + + + + | Specimen | + + | Blood | + + + + + + + | Performing | Address | City/State/Zipcode | Phone Number | | Organization | | | | + + + + + | REFERENCE LAB | [address] | [place] | [phone] | | [facility] | | [address] | | + + + + + from Last 3 Months Insurance + +--------+ +--------+ +---------+--------+ | Payer | Benefi | Subscriber | Effect | Phone | Address | Type | | | t Plan | ID | steve | | | | | | / | | Dates | | | | | | Group | | | | | | + +--------+ +--------+ +---------+--------+ | MEDICARE | MEDICA | [id number] | | [phone] | | Medica | | | RE | | 011-Pr | 5 | | re | | | PART A | | esent | | | | | | AND B | | | | | | + +--------+ +--------+ +---------+--------+ | MEDICARE SUPPLEMENT | MEDICA | [id number] | | [phone] | | Indemn | | OTHER | RE | 5 | 012-Pr | 0 | | ity | | | SUPPLE | | esent | | | | | | MENT | | | | | | | | OTHER | | | | | | + +--------+ +--------+ +---------+--------+ + +--------+ +--------+ + + | Guarantor Name | Accoun | Relation to | Date | Phone | Billing Address | | | t Type | Patient | of | | | | | | | | | | + +--------+ +--------+ + + | Guy Thurman | Person | Self [birth year] | [address] | | | al/Fam | | 1945 | [phone] | [place] [address] | | | bossman | | | 4 (Home) | | | | | | | [phone] | | | | | | | 1 (Work) | | + +--------+ +--------+ + + Advance Directives + + + + + | Type | Date Recorded | Patient | Explanation | | | | Carpet Cleaner | | + + + + + | Power of | | | | | Orthodontic Band Maker | | | | + + + + + | Advance | 11/14/2015 | | | | Directive | 12:03 PM | | | + + + + +
--- OUTSIDE RECORDS SUMMARY | ~2020-03-26 | XMS | Encounter Summary ---
Demographics + + + | Address | [address] | | | [place] [address] | + + + | Home Phone | | + + + | Preferred Language | Unknown | + + + | Marital Status | | + + + | Adventist Affiliation | [id number] | + + + | Race | Unknown | + + + | Ethnic Group | Unknown | + + + Author + + + | Author | [facility] | | | and [place] | + + + | Organization | [facility] | | | and [place] [...] [place] | | | | | [address] | | + + + + + | Floyd Herndon | ECON | NA | | | | | NA, | | + + + + + Care Team Providers + +------+ + | Care Rf Microwave Engineer Name | Role | Phone | + +------+ + PCP | Unavailable | + +------+ + Encounter Details +--------+ + + + + | Date | Type | Department | Care Team | Description | +--------+ + + + + | 01/18/ | Hospital | [facility] | | | | 2006 | Encounter | [facility] | | | | | | [address] | | | | | | [place] | | | | | | [phone] | | | | | | [phone] | | | +--------+ + + + [...]
--- OUTSIDE RECORDS SUMMARY | ~2020-03-26 | XMS | Encounter Summary ---
Demographics + + + | Address | [address] | | | [place] [address] | + + + | Home Phone | | + + + | Preferred Language | Unknown | + + + | Marital Status | | + + + | Alevism Affiliation | 1009 | + + + | Race | Unknown | + + + | Ethnic Group | Unknown | + + + Author + + + | Author | [facility] | | | and [place] | + + + | Organization | [facility] | | | and [...] [place] | | | | | [address] | | + + + + + | Floyd Herndon | ECON | NA | | | | | NA, | | + + + + + Care Team Providers + +------+ + | Care Cafe Aide Name | Role | Phone | + +------+ + | Beltran Fields MD | PCP | | + +------+ + Encounter Details +--------+ + + + + | Date | Type | Department | Care Team | Description | +--------+ + + + + | 11/09/ | Hospital | [facility] | Julieta Sun | Pulmonary embolism | | 2013 | Encounter | [facility] [address] | [address] | (FORMERLY [facility]); S/P | | | | [address] | [address] | prostatectomy; Chest | | | | [place], [place] | [place] [address] | pain; Hematuria; | | | | [address] | [phone] | Anemia; BPH (benign | | | | [phone] | | prostatic | | | | | | hyperplasia); | | | | | | Hematuria, | | | | | | unspecified; HTN | | | | | | (hypertension); | | | | | | Obesity, | | | | | | unspecified; JEAN | | | | | | (obstructive sleep | | | | | | apnea); Pulmonary | | | | | | emboli ([facility]) | +--------+ + + + + Social [...] + + documented as of this encounter Discharge Summaries Jordan Donahue MD - 11/09/2014 9:48 AM PSTFormatting of this note might be different f rom the original. Discharge Summaries by Jordan Donahue MD at 11/09/14947 Author: Jordan Donahue MD Service: Hospitalist Author Type: Physician Filed: 11/09/141124 Date of Service: 11/09/14947 Status: Addendum Frame Fixer: Jordan Donahue MD (Physician) Related Notes: Original Note by Jordan Donahue MD (Physician) filed at 11/09/141124 [facility] Service: Hospitalist Physician Discharge Summary Pt: Guy Thurman AGE/SEX: 69 y.o. male ROOM: [address] [place] [address] PCP: PER PT NONE : 1945 Admit date: 11/09/2014 Discharge date and time: 11/09/2014 9:48 AM Admitting Physician: Julieta Sun MD Discharge Physician: Jordan Donahue MD Consults: Nill Primary Discharge Diagnoses: Hematuria HTN (hypertension) [401.9] Anemia [285.9] JEAN (obstructive sleep apnea) [327.23] Hematuria [599.70] S/P prostatectomy [V45.89] Hematuria, unspecified [599.70] BPH (benign prostatic hyperplasia) [600.90] Secondary Discharge Diagnoses: Nill Discharged Condition: stable Significant Diagnostic Studies: No results found. HPI and Hospital Course: 69-year-old gentleman with past medical history of atrial fibrillation and he is in normal sinus rhythm, benign hypertension, recent prostatectomy came to the hospital with hematuria. He said he was feeling short of breath as well dated the CT scan that was consistent with possible PE. 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 I have the reading by our radiologist(Dr. Morillo) and he also th inks that he does not have pulmonary embolism. His hematuria more likely related to the kraig elizabeth. He usually would like to go home. He Had no CP, SOB, N/V, Diarrhea, Abdominal pain or [place]. No constipation or change in bowel habits. No orthopnea or PND. Appetite is good without abdominal bloating. No cough or fever. No dizziness, lightheadedness or any symptoms suggestive of stroke. Discharge Vitals: Filed Vitals: 11/09/14 0306 11/09/14 0417 11/09/14 0500 11/09/14 0817 BP: 164/90 145/76 134/78 134/71 Pulse: 89 81 81 74 Temp: 98 F (36.7 C) 98.8 F (37.1 C) 98 F (36.7 C) TempSrc: Oral Oral Resp: 20 16 16 18 Height: 1.778 m (5' 10") Weight: 117.935 kg (260 lb) 117.9 kg (259 lb 14.8 oz) SpO2: 97% 96% 96% 94% Discharge Exam: Constitutional: Alert and oriented to person, place, and time. Appears well-developed and w ell-nourished. Cardiovascular: Normal rate, regular rhythm, normal heart sounds with S1 and S2 and intact distal pulses. Exam reveals no gallop and no friction rub. No murmur heard. Pulmonary/Chest: Effort normal and breath sounds normal. No stridor. No respiratory distres s. no wheezes. no rales. exhibits no tenderness. Abdominal: Soft. Bowel sounds are normal. exhibits no distension and no mass. There is no t enderness. There is no rebound and no guarding. Musculoskeletal: Normal range of motion.exhibits no tenderness. exhibits no edema. Neurological: Alert and oriented to person, place, and time. Has normal reflexes. display s normal reflexes. No cranial nerve deficit. Exhibits normal muscle tone. Coordination norm al. Skin: Skin is warm and dry. No rash noted. No erythema. No pallor. Psychiatric: Has a normal mood and affect. Behavior is normal. Judgment normal. Disposition: Home Patient Instructions: Medication List CONTINUE taking these medications allopurinol 300 MG tablet Refills: 0 Commonly known as: ZYLOPRIM ciprofloxacin 500 MG tablet Refills: 0 Commonly known as: CIPRO flecainide 100 MG tablet Refills: 0 Commonly known as: TAMBOCOR FLUTICASONE PROPIONATE HFA IN Refills: 0 hydrochlorothiazide 50 MG tablet Refills: 0 Commonly known as: HYDRODIURIL HYDROcodone-acetaminophen 5-325 MG per tablet Refills: 0 Commonly known as: NORCO omeprazole 20 MG capsule Refills: 0 Commonly known as: PRILOSEC potassium chloride 10 MEQ tablet Refills: 0 Commonly known as: K-DUR simvastatin 40 MG tablet Refills: 0 Commonly known as: ZOCOR tadalafil 20 MG tablet Refills: 0 Commonly known as: CIALIS Activity: activity as tolerated Diet: regular diet Wound Care: not applicable Follow-up with PCP 1 week Urology 1 week Discharge took more than 35 minutes, to include final examination, discussion of admission, and preparation of prescriptions, instructions for ongoing care, follow up and dictation of summary. Signed: JORDAN DONAHUE MD 11/09/2014 9:48 AM Dictation software, [employer], used which may contain error for similar sounding words even af ter review. Personal communication requested for any clarification. documented in this encounter Medications at Time of Discharge + + + +---------+ + + | Medication | Sig | Dispensed | Refills | Start | End Date | | | | | | Date | | + + + +---------+ + + | multivitamin | one tablet by mouth | | 0 | 07/27/20 | | | (THERAGRAN) per | daily | | | 12 | | | tablet | | | | | | + + + +---------+ + + | [place]-3 Fatty | two capsules by | | 0 | 07/27/20 | | | Acids (EQL FISH OIL) | mouth daily | | | 12 | | | 1000 MG CAPS | | | | | | + + + +---------+ + + | Omeprazole | TBEC one tablet by | | 0 | 07/27/20 | | | Magnesium (PRILOSEC | mouth daily | | | 12 | | | OTC PO) | | | | | | + + + +---------+ + + | UNCODED MEDICATION | Diagnosis: | 1 | 0 | 03/24/20 | | | | Obstructive Sleep | Device | | 13 | | | | ApneaICD-9: | | | | | | | 327.23Length of | | | | | | | Need: 99 Months | | | | | + + + +---------+ + + | allopurinol | TAKE ONE TABLET BY | 90 | 3 | 11/21/19 | | | (ZYLOPRIM) 300 mg | MOUTH EVERY DAY | tablet | | 14 | 5 | | tablet | | | | | | + + + +---------+ + + | aspirin 325 mg EC | Take 325 mg by mouth | | 0 | 07/27/20 | | | tablet | Daily. | | | 12 | 6 | + + + +---------+ + + | flecainide | Take 1 tablet by | 180 | 3 | 07/26/20 | | | (TAMBOCOR) 50 MG | mouth 2 times daily. | tablet | | 14 | 5 | | tabletIndications: | | | | | | | Atrial fibrillation | | | | | | | (HCC) | | | | | | + + + +---------+ + + | Fluticasone | SUSP 2 sprays each | | 0 | 08/26/20 | | | Propionate (FLONASE | nostril daily | | | 11 | 5 | | NA) | | | | | | + + + +---------+ + + | | Take 1 tablet by | 90 | 1 | 07/26/20 | | | hydrochlorothiazide | mouth Daily. | tablet | | 14 | 5 | | 50 mg tablet | | | | | | + + + +---------+ + + | | One po TID prn pain | 50 | 0 | 03/24/20 | | | HYDROcodone-acetamin | | tablet | | 13 | 8 | | ophen (NORCO) 10-325 | | | | | | | mg per | | | | | | | tabletIndications: | | | | | | | Osteoarthritis | | | | | | + + + +---------+ + + | | Take 1 tablet by | 30 | 0 | 07/26/20 | | | HYDROcodone-acetamin | mouth every 4 hours | tablet | | 14 | 8 | | ophen (VICODIN) | as needed for Pain. | | | | | | 5-500 mg per tablet | | | | | | + + + +---------+ + + | KLOR-CON M10 10 | TAKE ONE TABLET BY | 90 | 0 | 08/14/20 | | | MEQ tablet | MOUTH ONCE DAILY | tablet | | 14 | 4 | + + + +---------+ + + | metoprolol | TAKE ONE TABLET BY | 90 | 2 | 07/13/20 | | | tartrate (LOPRESSOR) | MOUTH AT BEDTIME | tablet | | 14 | 5 | | 25 mg tablet | | | | | | + + + +---------+ + + | metoprolol | Take 1 tablet by | 30 | 0 | 07/26/20 | | | tartrate (LOPRESSOR) | mouth Daily. | tablet | | 14 | 5 | | 50 mg tablet | | | | | | + + + +---------+ + + | niacin 500 MG CR | 4 capsules by mouth | | 0 | 07/27/20 | | | capsule | at bedtime | | | 12 | 8 | + + + +---------+ + + | sildenafil | Take 100 mg by mouth | | 0 | 07/27/20 | | | (VIAGRA) 100 MG | Daily as needed. | | | 12 | 8 | | tablet | | | | | | + + + +---------+ + + | simvastatin | Take 1 tablet by | 90 | 2 | 10/16/20 | | | (ZOCOR) 40 mg | mouth nightly. | tablet | | 14 | 5 | | tabletIndications: | | | | | | | Hyperlipidemia | | | | | | + + + +---------+ + + | tadalafil (CIALIS) | Take one-half to one | 10 | 0 | 04/23/20 | | | 20 MG tablet | tablet by mouth as | tablet | | 14 | 6 | | | needed prior to | | | | | | | sexual activity | | | | | + + + +---------+ + + | tadalafil (CIALIS) | Take one-half to one | 10 | 0 | 02/14/20 | | | 20 MG tablet | tablet by mouth as | tablet | | 13 | 6 | | | needed prior to | | | | | | | sexual activity | | | | | + + + +---------+ + + | tadalafil (CIALIS) | Take one-half to one | 10 | 0 | 09/08/20 | | | 20 MG | tablet by mouth as | tablet | | 12 | 6 | | tabletIndications: | needed prior to | | | | | | ED (erectile | sexual activity | | | | | | dysfunction) | | | | | | + + + +---------+ + + documented as of this encounter Progress Notes Conversion Transaction, Provider Unknown - 11/09/2014 12:37 PM PSTFormatting of this note m ight be different from the original. Nurse Progress Note by Payton Fuentes RN at 11/09/14 5857 Author: Payton Fuentes RN Service: (none) Author Type: Registered Nurse Filed: 11/09/14 1239 Date of Service: 11/09/14 438 Status: Signed Frame Fixer: Payton Fuentes RN (Registered Nurse) Patient discharged to home with instructions, prescriptions, and belongings. Accompanied b y . Eager to be discharged. IV dc'd without complications. Sent home with indwelling fol ey catheter and extra supplies (leg bag, canister for emptying). Will follow up with MD. Uri ne light pink, no clots. No pain at discharge. Tolerating PO intake without nausea. onver paramjit Transaction, Provider Unknown - 11/09/2014 5:19 AM PST Progress Notes by Quyen Becker [facility] at 11/09/14 0519 Author: Quyen Becker RPH Service: (none) Author Type: Pharmacist Filed: 11/09/14518 Date of Service: 11/09/14518 Status: Signed Frame Fixer: Quyen Becker RPH (Pharmacist) Clinical Pharmacy Note: Renal Monitoring Guy Thurman 69 y.o. male Pharmacy dosing for renal function per Dr. Sun. Currently there is no serum creatinine. Pharmacy will adjust medications, if necessary, in AM when labs are reported per P & T committee. Quyen Becker PharmTaylor 11/09/2014 5:19 AM docume nted in this encounter Plan of Treatment Not on filedocumented as of this encounter Procedures + +--------+ + + + | Procedure Name | Priori | Date/Time | Associated Diagnosis | Comments | | | ty | | | | + +--------+ + + + | CT ANGIOGRAM | Routin | 11/09/2014 | | Results for this | | PULMONARY | e | 11:13 AM | | procedure are in the | | | | PST | | results section. | + +--------+ + + + | LIPID PANEL | Routin | 11/09/2014 | | Results for this | | | e | 5:13 AM | | procedure are in the | | | | PST | | results section. | + +--------+ + + + | TSH | Routin | 11/09/2014 | | Results for this | | | e | 5:13 AM | | procedure are in the | | | | PST | | results section. | + +--------+ + + + | ECG 12 LEAD | Routin | 11/09/2014 | | Results for this | | | e | 3:40 AM | | procedure are in the | | | | PST | | results section. | + +--------+ + + + documented in this encounter Results CT Angiogram Pulmonary w Contrast (11/09/2014 11:13 AM PST) + + | Specimen | + + | | + + + + + | Narrative | Performed At | + + + | This is a non-reportable procedure without a radiologist report and | | | is used for image storage only | | + + + + + | Procedure Note | + + | Jordi Good - 06/30/2019 6:00 PM PDT This is a non-reportable procedure | | without a radiologist report and isused for image storage only | + + TSH (11/09/2014 5:13 AM PST) + + + + + + | Component | Value | Ref Range | Performed | Pathologist | | | | | At | Signature | + + + + + + | TSH | 1.84Comment: Testing | 0.45 - 5.10 | EXTERNAL | | | | performed at [facility], [address] | uIU/mL | LAB | | | | [address], | | | | | | [place] [address] | | | | + + + + + + + + | Specimen | + + | Blood specimen | | (specimen) | + + + +---------+ + + | Performing | Address | City/State/Zipcode | Phone Number | | Organization | | | | + +---------+ + + | EXTERNAL LAB | | | | + +---------+ + + Lipid Panel (11/09/2014 5:13 AM PST) + + + + + + | Component | Value | Ref Range | Performed | Pathologist | | | | | At | Signature | + + + + + + | Cholesterol | 115Comment: Testing | mg/dL | EXTERNAL | | | | performed at [facility], [address] | | LAB | | | | [address] | | | | | | [place] [address] | | | | + + + + + + | Triglycerid | 175 (H)Comment: Testing | mg/dL | EXTERNAL | | | es | performed at [facility], [address] | | LAB | | | | [address], | | | | | | [place] [address] | | | | + + + + + + | HDL | 19 (L)Comment: Testing | mg/dL | EXTERNAL | | | | performed at [facility], [address] | | LAB | | | | [address], | | | | | | [place] [address] | | | | + + + + + + | LDL, | 61Comment: Testing | mg/dL | EXTERNAL | | | Calculated | performed at [facility], [address] | | LAB | | | | [address], | | | | | | [place] [address] | | | | + + + + + + + + | Specimen | + + | Blood specimen | | (specimen) | + + + +---------+ + + | Performing | Address | City/State/Zipcode | Phone Number | | Organization | | | | + +---------+ + + | EXTERNAL LAB | | | | + +---------+ + + ECG 12 lead (11/09/2014 3:40 AM PST) + + + + + + | Component | Value | Ref Range | Performed | Pathologist | | | | | At | Signature | + + + + + + | DIAGNOSIS: | Normal sinus | | EXTERNAL | | | | rhythmProlonged | | LAB | | | | QTAbnormal ECGNo | | | | | | previous ECGs | | | | | | availableThis ECG | | | | | | contains Unconfirmed | | | | | | Interpretation | | | | | | Statements. See ED | | | | | | Record for Physician | | | | | | Interpretation. | | | | | | Confirmed by MUSE READ | | | | | | ONLY, -COMPUTER ([id number]), | | | | | | editor at large Kristy Martinez | | | | | | (18) on 11/09/2014 | | | | | | 5:25:44 AM | | | | + + + + + + + + | Specimen | + + | | + + + + + | Narrative | Performed At | + + + | Historically converted procedure from [facility] | EXTERNAL LAB | + + + + +---------+ + + | Performing | Address | City/State/Zipcode | Phone Number | | Organization | | | | + +---------+ + + | EXTERNAL LAB | | | | + +---------+ + + documented in this encounter Visit Diagnoses + + | Diagnosis | + + | Pulmonary embolism (HCC) Other pulmonary embolism and infarction | + + | S/P prostatectomy Other postprocedural status | + + | Chest pain Chest pain, unspecified | + + | Hematuria Hematuria, unspecified | + + | Anemia Anemia, unspecified | + + | BPH (benign prostatic hyperplasia) Unspecified hyperplasia of prostate without | | urinary obstruction and other lower urinary tract symptoms (LUTS) | + + | Hematuria, unspecified | + + | HTN (hypertension) Unspecified essential hypertension | + + | Obesity, unspecified | + + | JEAN (obstructive sleep apnea) Obstructive sleep apnea (adult) (pediatric) | + + | Pulmonary emboli (HCC) | + + documented in this encounter
--- OUTSIDE RECORDS SUMMARY | ~2020-03-26 | XMS | Encounter Summary ---
Demographics + + + | Address | [address] | | | [place] [address] | + + + | Home Phone | | + + + | Preferred Language | Unknown | + + + | Marital Status | | + + + | Anglican Affiliation | 1009 | + + + | Race | Unknown | + + + | Ethnic Group | Unknown | + + + Author + + + | Author | [facility] | | | and [place] | + + + | Organization | [facility] | | | and [place] | [...] [place] | | | | | [address] | | + + + + + | Floyd Herndon | ECON | NA | | | | | NA, | | + + + + + Care Team Providers + +------+ + | Care Curtain Drier Name | Role | Phone | + [...] Description | +--------+--------+ + + + | 10/16/ | Refill | [facility] [place] INTERNAL | Beltran Fields, | Medication Refill | | 2013 | | MEDICINE [facility] All | [address] | | | | | [facility] | [place] [address] [place], | | | | | [place] [address] | [place] [address] | | | | | [phone] | [phone] | | | | | | | [...]
--- OUTSIDE RECORDS SUMMARY | ~2020-03-26 | XMS | Encounter Summary ---
Demographics + + + | Address | [address] | | | [place] [address] | + + + | Home Phone | | + + + | Preferred Language | Unknown | + + + | Marital Status | | + + + | Moravian Affiliation | 1009 | + + + | Race | Unknown | + + + | Ethnic Group | Unknown | + + + Author + + + | Author | [facility] | | | and [place] | + + + | Organization | [facility] | | | and [...] [place] | | | | | [address] | | + + + + + | Floyd Herndon | ECON | NA | | | | | NA, | | + + + + + Care Team Providers + +------+ + | Care Automatic Trimming Sewer Name | Role | Phone | [...] Description | +--------+--------+ + + + | 01/28/ | Refill | [facility] [place] [facility] | Beltran Fields, | Medication Refill | | 2019 | | MEDICINE [facility] All | [address] | | | | | [place] | [address] [place], | | | | | [place] [address] | [place] [address] | | | | | [phone] | [phone] | | | | | | | [...]
--- OUTSIDE RECORDS SUMMARY | ~2020-03-26 | XMS | Encounter Summary ---
Demographics + + + | Address | [address] | | | [place] [address] | + + + | Home Phone [...] | Author | [facility] | | | and [place] | + + + | Organization | [facility] | | | and [place] [...] [place] | | | | | [address] | | + + + + + | Floyd Herndon | ECON | NA | | | | | NA, | | + + + + + Care Team Providers + +------+ + | Care Network And Threat Support Specialist Name | Role | Phone | [...] Description | +--------+--------+ + + + | 11/23/ | Refill | [facility] [place] [facility] | Beltran Fields, | Medication Refill | | 2017 | | MEDICINE [facility] All | [address] | | | | | [place] | [address] [place], | | | | | [place] [address] | [place] [address] | | | | | [phone] | [phone] | | | | | | | [...]
--- OUTSIDE RECORDS SUMMARY | ~2020-03-26 | XMS | Encounter Summary ---
Demographics + + + | Address | [address] | | | [place] [address] | + + + | Home Phone | | + + + | Preferred Language | Unknown | + + + | Marital Status | | + + + | Mormonism Affiliation | 1009 | + + + | Race | Unknown | + + + | Ethnic Group | Unknown | + + + Author + + + | Author | [facility] | | | and [place] | + + + | Organization | [facility] | | | and [...] [place] | | | | | [address] | | + + + + + | Floyd Herndon | ECON | NA | | | | | NA, | | + + + + + Care Team Providers + +------+ + | Care Bill Cutter Name | Role | Phone | + +------+ + | Beltran Fields MD | PCP | | + +------+ + Encounter Details +--------+ + + + + | Date | Type | Department | Care Team | Description | +--------+ + + + + | 07/26/ | Hospital | [facility] | Beltran Fields, | Elevated PSA; | | 2014 | Encounter | [facility] | MD [address] | Essential | | | | [address] [place] | [place], | hypertension, benign | | | | [place], [place] | [place] [address] | | | | | [address] | [phone] | | | | | [phone] | | | +--------+ + + + [...] + + documented as of this encounter Medications at Time of Discharge [...] + + + +---------+ + + | Roark-3 Fatty | two capsules by | | [...] TABLET BY | 90 | 1 | 02/13/20 | | | MEQ tablet | MOUTH EVERY DAY | tablet | | 14 | 4 [...] Take 1 tablet by | 90 | 0 | 07/26/20 | | | (ZOCOR) 40 mg | mouth nightly. | tablet | | 14 | 4 | | tabletIndications: | | | | [...] documented as of this encounter Progress Notes Beltran Fields MD - 07/27/2014 9:39 AM PDT Quick Note: Ok for ma or nurse to notify pt that there may be slight lab abnormalities but that they d o not require follow up prior to next recommended visit but if they would like to discuss th ey can rtc earlier. PSA is slightly lower than previous. Rec Repeat PSA three months. documented in thi s encounter Plan of Treatment Not on filedocumented as of this encounter Procedures + +--------+ + + + | Procedure Name | Priori | Date/Time | Associated Diagnosis | Comments | | | ty | | | | + +--------+ + + + | CBC WITH | Routin | 07/26/2014 | Essential | Results for this | | DIFFERENTIAL | e | 4:04 PM | hypertension, benign | procedure are in the | | | | PDT | | results section. | + +--------+ + + + | PSA, DIAGNOSTIC | Routin | 07/26/2014 | Elevated PSA | Results for this | | | e | 4:04 PM | | procedure are in the | | | | PDT | | results section. | + +--------+ + + + | COMPREHENSIVE | Routin | 07/26/2014 | Essential | Results for this | | METABOLIC PANEL | e | 4:04 PM | hypertension, benign | procedure are in the | | | | PDT | | results section. | + +--------+ + + + documented in this encounter Results CBC with Differential (07/26/2014 4:04 PM PDT) + +-------+ + + + | Component | Value | Ref Range | Performed | Pathologist | | | | | At | Signature | + +-------+ + + + | WBC | 8.3 | 4.0 - 11.0 K/uL | [facility] | [facility] | | | [facility] | [facility] | [facility] | | | | | [facility] - | | | | | | LABORATORY | | + +-------+ + + + | RBC | 5.06 | 4.30 - 5.70 | [facility] | | | | | M/uL | [facility] | | | | | | [facility] | | | | | | C[facility] - | | | | | | LABORATORY | | + +-------+ + + + | Hemoglobin | 15.1 | 13.5 - 18.0 | [facility] | | | | | g/dL | [facility] | | | | | [facility] | | | | | | CENTER - | | | | | | LABORATORY | | + +-------+ + + + | Hematocrit | 44.3 | 40.0 - 51.0 % | [facility] | | | | | | [facility] | | | | | | [facility] | | | | | | [facility] - | | | | | | LABORATORY | | + +-------+ + + + | MCV | 87.5 | 83.0 - 101.0 fL | [facility] | | | | | | [facility] | | | | | | [facility] | | | | | | CENTER - | | | | | | LABORATORY | | + +-------+ + + + | MCH | 29.9 | 28.0 - 35.0 pg | [facility] | | | | | | [facility] | | | | | | [facility]ICAL | | | | | | CENTER - | | | | | | LABORATORY | | + +-------+ + + + | MCHC | 34.2 | 32.0 - 36.0 | [facility] | | | | | g/dL | [facility] | | | | | | [facility]ICAL | | | | | | CENTER - | | | | | | LABORATORY | | + +-------+ + + + | RDW-CV | 14.2 | <15.0 % | [facility] | | | | | | [facility] | | | | | | [facility]ICAL | | | | | | CENTER - | | | | | | LABORATORY | | + +-------+ + + + | Platelet | 207 | 140 - 440 K/uL | [facility] | | | Count | | | [facility] | | | | | | [facility]ICAL | | | | | | CENTER - | | | | | | LABORATORY | | + +-------+ + + + | MPV | 8.5 | fL | [facility] | | | | | | [facility] | | | | | | [facility] | | | | | | CENTER - | | | | | | LABORATORY | | + +-------+ + + + | % | 55.0 | 45.0 - 82.0 % | [facility] | | | Neutrophils | | | [facility] | | | | | | MEDICAL | | | | | | CENTER - | | | | | | LABORATORY | | + +-------+ + + + | % | 32.4 | 20.0 - 45.0 % | [facility] | | | Lymphocytes | | | [facility] | | | | | | MEDICAL | | | | | | CENTER - | | | | | | LABORATORY | | + +-------+ + + + | % Monocytes | 8.5 | 4.0 - 12.0 % | [facility] | | | | | | [facility] | | | | | | [facility]ICAL | | | | | | CENTER - | | | | | | LABORATORY | | + +-------+ + + + | % | 3.6 | 0.0 - 5.0 % | [facility] | | | Eosinophils | | | [facility] | | | | | | MEDICAL | | | | | | CENTER - | | | | | | LABORATORY | | + +-------+ + + + | % Basophils | 0.5 | 0.0 - 1.0 % | [facility] | | | | | | [facility] | | [facility] | | [facility] | | | | | | C[facility] - | | | | | | LABORATORY | | + +-------+ + + + | Absolute | 4.60 | 1.80 - 8.50 | [facility] | | | Neutrophils | | K/uL | [facility] | | | | | [facility] | | | | | | CENTER - | | | | | | LABORATORY | | + +-------+ + + + | Absolute | 2.70 | 0.60 - 3.20 | [facility] | | | Lymphocytes | | K/uL | [facility] | | | | | [facility] | | | | | | CENTER - | | | | | | LABORATORY | | + +-------+ + + + | Absolute | 0.70 | 0.00 - 1.00 | [facility] | | | Monocytes | | K/uL | [facility] | | | | | [facility] | | | | | | CENTER - | | | | | | LABORATORY | | + +-------+ + + + | Absolute | 0.30 | 0.00 - 0.40 | [facility] | | | Eosinophils | | K/uL | [facility] | | | | | | MEDICAL | | | | | | CENTER - | | | | | | LABORATORY | | + +-------+ + + + | Absolute | 0.00 | 0.00 - 0.10 | [facility] | | | Basophils | | K/uL | [facility] | | | | | | MEDICAL | | | | | | CENTER - | | | | | | LABORATORY | | + +-------+ + + + + + | Specimen | + + | Blood | + + + + + + + | Performing | Address | City/State/Zipcode | Phone Number | | Organization | | | | + + + + + | [facility] | [address] | [place] | [phone] | | [facility] | | [address] | | | - LABORATORY | | | | + + + + + | [facility] | [address] | [place] | | | [facility] | | [address], [facility] | | | - LABORATORY | | | | + + + + + Comprehensive Metabolic Panel (07/26/2014 4:04 PM PDT) + + + + + + | Component | Value | Ref Range | Performed | Pathologist | | | | | At | Signature | + + + + + + | Na | 138 | 136 - 149 | [facility] | | | | | mmol/L | [facility] | | | | | | MEDICAL | | | | | | CENTER - | | | | | | LABORATORY | | + + + + + + | K | 3.5 | 3.5 - 5.1 | [facility] | | | | | mmol/L | [facility] | | | | | | MEDICAL | | | | | | CENTER - | | | | | | LABORATORY | | + + + + + + | Cl | 101 | 98 - 109 mmol/L | [facility] | | | | | | [facility] | | | | | | MEDICAL | | | | | | CENTER - | | | | | | LABORATORY | | + + + + + + | CO2 | 29 | 24 - 31 mmol/L | [facility] | | | | | | [facility] | | | | | | MEDICAL | | | | | | CENTER - | | | | | | LABORATORY | | + + + + + + | Anion Gap | 8 | 3 - 16 mmol/L | [facility] | | | | | | [facility] | | | | | | MEDICAL | | | | | | CENTER - | | | | | | LABORATORY | | + + + + + + | Glucose | 124 (H) | 70 - 109 mg/dL | [facility] | | | | | | [facility] | | | | | | MEDICAL | | | | | | CENTER - | | | | | | LABORATORY | | + + + + + + | BUN | 13 | 7 - 18 mg/dL | [facility] | | | | | | [facility] | | | | | | MEDICAL | | | | | | CENTER - | | | | | | LABORATORY | | + + + + + + | Creatinine | 0.98 | 0.60 - 1.30 | [facility] | | | | | mg/dL | [facility] | | | | | | MEDICAL | | | | | | CENTER - | | | | | | LABORATORY | | + + + + + + | eGFR if not | >60Comment: GLOMERULAR | >=60 | [facility] | | | | FILTRATION | mL/min/1.73m2 | [facility] | | | MALAYSIAN | RATE,ESTIMATED | | MEDICAL | | | | mL/min/1.59j3Cdmj than | | CENTER - | | [...] + + + + | Calcium | 9.1 | 8.3 - 10.5 | [facility] | | | | | mg/dL | [facility] | | | | | | MEDICAL | | | | | | CENTER - | | | | | | LABORATORY | | + + + + + + | Albumin | 4.0 | 3.2 - 5.0 g/dL | [facility] | | | | | | [facility] | | | | | | MEDICAL | | | | | | CENTER - | | | | | | LABORATORY | | + + + + + + | Bilirubin | 0.7 | 0.1 - 1.5 mg/dL | [facility] [...] + + + + | AST | 23 | 10 - 42 U/L | [facility] | | | | | | [facility] | | | | | | MEDICAL | | | | | | CENTER - | | | | | | LABORATORY | | + + + + + + | ALT | 20 | 6 - 45 U/L | [facility] | | | | | | [facility] | | | | | | MEDICAL | | | | | | CENTER - | | | | | | LABORATORY | | + + + + + + | Alkaline | 63 | 40 - 110 U/L | [facility] | | | Phosphatase | | | [facility] | | | | | | MEDICAL | | | | | | CENTER - | | | | | | LABORATORY | | + + + + + + | Globulin | 3.0 | g/dL | [facility] | | | | | | [facility] | | | | | | MEDICAL | | | | | | CENTER - | | | | | | LABORATORY | | + + + + + + | Albumin/Orly | 1.3 | | [facility] | | | bulin Ratio | | | [facility] | | | | | | MEDICAL | | | | | | CENTER - | | | | | | LABORATORY | | + + + + + + | BUN/Creatin | 13.3 | | [facility] | | | ine [...] + | [facility] | [address] | [place] | [phone] | | [facility] | | [address] | | | - LABORATORY | | | | + + + + + | [facility] | [address] | [place], [place] | | | [facility] | | [address] | | | - LABORATORY | | | | + + + + + PSA, Diagnostic (07/26/2014 4:04 PM PDT) + + + + + + | Component | Value | Ref Range | Performed | Pathologist | | | | | At | Signature | + + + + + + | PSA | 10.65 (H) | <=4.00 ng/mL | [facility] | | | | | [...] + | [facility] | [address] | [place], [place] | [phone] | | [facility] | | [address] | | | - LABORATORY | | | | + + + + + | [facility] | [address] | [place], [place] | | | [facility] | | [address] [place] [address] | | | - LABORATORY | | | | + + + + + documented in this encounter Visit Diagnoses + + | Diagnosis | + + | Elevated PSA Elevated prostate specific antigen (PSA) | + + | Essential hypertension, benign | + + documented in this encounter"
--- OUTSIDE RECORDS SUMMARY | ~2020-03-26 | XMS | Encounter Summary ---
Demographics + + + | Address | [address] | | | [place] [address] | + + + | Home Phone | | + + + | Preferred Language | Unknown | + + + | Marital Status | | + + + | Christianity Affiliation | Unknown | + + + | Race | White | + + + | Ethnic Group | Not or | + + + Author + + + | Author | [facility] | + + + | Organization | [facility] | + + + | Address | Unknown | + + + | Phone | Unavailable | + + + Support + + + + + | Name | Relationship | Address | Phone | + + + + + | Yuliet Ma | ECON | [address] | | | | | [place] | | | | | [address] | | + + + + + Care Team Providers + +------+ + | Care Mechanical Engineering [employer] Name | Role | Phone | + +------+ + PCP | Unavailable | + +------+ + Encounter Details +--------+ + + + + | Date | Type | Department | Care Team | Description | +--------+ + + + + | 09/06/ | Ancillary | Registration [id number] | | | | 2006 | Registratio | [address] | | | | | [address] | [address] Mailcode: [id number] | | | | | | [place], [place] | | | | | | [address] | | | | | | [phone] | | | +--------+ + + + [...]
--- OUTSIDE RECORDS SUMMARY | ~2020-03-26 | XMS | Encounter Summary ---
Demographics + + + | Address | [address] | | | [place] [address] | + + + | Home Phone | | + + + | Preferred Language | Unknown | + + + | Marital Status | | + + + | Shinto Affiliation | 1009 | + + + | Race | Unknown | + + + | Ethnic Group | Unknown | + + + Author + + + | Author | [facility] | | | and [place] | + + + | Organization | [facility] | | | and [place] | [...] [place] | | | | | [address] | | + + + + + | Floyd Herndon | ECON | NA | | | | | NA, | | + + + + + Care Team Providers + +------+ + | Care Jack Frame Tender Name | Role | Phone [...] Description | +--------+--------+ + + + | 11/06/ | Refill | [facility] [place] [facility] | Beltran Fields, | Medication Refill | | 2019 | | MEDICINE [place] | [address] | | | | | [address] | [place] [address] [place], | | | | | [place] | [place] [address] | | | | | [address] | [phone] | | | | | [phone] | | | +--------+--------+ + + + [...]
--- OUTSIDE RECORDS SUMMARY | ~2020-03-26 | XMS | Encounter Summary ---
Demographics + + + | Address | [address] | | | [place] [address] | + + + | Home Phone | | + + + | Preferred Language | Unknown | + + + | Marital Status | | + + + | Methodist Affiliation | 1009 | + + + | Race | Unknown | + + + | Ethnic Group | Unknown | + + + Author + + + | Author | [facility] | | | and [place] | + + + | Organization | [facility] | [...] [place] | | | | | [address] | | + + + + + | Floyd Herndon | ECON | NA | | | | | NA, | | + + + + + Care Team Providers + +------+ + | Care Buyer Tobacco Head Name | Role | Phone | + [...] | 01/14/ | Refill | [facility] [place] [facility] | Beltran Fields, | Medication Refill | | 2015 | | MEDICINE [facility] | [address] | | | | | [place] [address] | [place] [place], | | | | | [place] [address] | [place] [address] | | | | | [phone] | [phone] | | | | | | | [...]
--- OUTSIDE RECORDS SUMMARY | ~2020-03-26 | XMS | Encounter Summary ---
Demographics + + + | Address | [address] | | | [place] [address] | + + + | Home Phone | | + + + | Preferred Language | Unknown | + + + | Marital Status | | + + + | Buddhist Affiliation | 1009 | + + + | Race | Unknown | + + + | Ethnic Group | Unknown | + + + Author + + + | Author | [facility] | | | and [place] | + + + | Organization | [facility] | | | and [place] [...] [place] | | | | | [address] | | + + + + + | Floyd Herndon | ECON | NA | | | | | NA, | | + + + + + Care Team Providers + +------+ + | Care Library Specialist Name | Role | Phone | [...] | +--------+ + + + + | 12/02/ | Telephone | [facility] | Jordin Padron, | Appointment | | 2015 | | [address] | MD [address] | | | | | [place] | [place] | | | | | [address] | [address] | | | | | [phone] | | | +--------+ + + + [...]
--- OUTSIDE RECORDS SUMMARY | ~2020-03-26 | XMS | Encounter Summary ---
Demographics + + + | Address | [address] | | | [place] [address] | + + + | Home Phone | | + + + | Preferred Language | Unknown | + + + | Marital Status | | + + + | Church Affiliation | 1009 | + + + | Race | Unknown | + + + | Ethnic Group | Unknown | + + + Author + + + | Author | [facility] | | | and [place] | + + + | Organization | [facility] | | | and [place] [...] [place] | | | | | [address] | | + + + + + | Floyd Herndon | ECON | NA | | | | | NA, | | + + + + + Care Team Providers + +------+ + | Care Twister Tender Paper Name | Role | Phone | + +------+ + | Beltran Fields MD | PCP | | + +------+ + Encounter Details +--------+ + + + + | Date | Type | Department | Care Team | Description | +--------+ + + + + | 11/13/ | Hospital | [facility] | VitoJordin, | | | 2012 | Encounter | [facility] | [address] | | | | | [address] [place] | [place], [place] | | | | | [place], [place] | [address] | | | | | [address] | | | | | | [phone] | | | +--------+ + + + [...] + + + +---------+ + + | Grant-3 Fatty | two capsules by | | [...] + +---------+ + + | allopurinol | Take 1 tablet by | 90 | 3 | 09/08/20 | | | (ZYLOPRIM) 300 mg | mouth Daily. | tablet | | 12 | 4 | | tabletIndications: | | | | | | | Gout | | | | | | + [...] Take 1 tablet by | 90 | 3 | 09/08/20 | | | hydrochlorothiazide | mouth Daily. | tablet | | 12 | 4 | | (HYDRODIURIL) 50 MG | | | | | | | tabletIndications: | | | | | | | Essential | | | | | | | hypertension, benign | | | | | | + [...] tablet by | 30 | 0 | 08/21/20 | | | HYDROcodone-acetamin | mouth every 4 hours | tablet | | 13 | 4 | | ophen (VICODIN) | as needed for Pain. | | | | | | 5-500 mg per tablet | | | | | | + + + +---------+ + + | KLOR-CON M10 10 | TAKE ONE TABLET BY | 90 each | 3 | 02/01/20 | | | MEQ tablet | MOUTH EVERY DAY | | | 13 | 4 | + + + +---------+ + + | metoprolol | TAKE ONE TABLET BY | 90 | 2 | 11/07/20 | | | tartrate (LOPRESSOR) | MOUTH AT BEDTIME | tablet | | 13 | 4 | | 25 mg tablet | | | | | | + + + +---------+ + + | metoprolol | TAKE ONE TABLET BY | 90 | 3 | 10/06/20 | | | tartrate (LOPRESSOR) | MOUTH IN THE MORNING | tablet | | 13 | 4 | | 50 mg tablet | | [...] Take 1 tablet by | 90 | 3 | 03/24/20 | | | (ZOCOR) 40 mg | mouth nightly. | tablet | | 13 | 4 | | tabletIndications: | | | | | | | Hyperlipidemia | | | | | | + + + +---------+ + + | tadalafil (CIALIS) | Take one-half to one | 10 | 0 | 11/10/20 | | | 20 MG tablet | tablet by mouth as | tablet | | 13 | 4 | | | needed prior to | [...] | + +--------+ + + + | CULTURE, URINE, | Routin | 11/13/2013 | | Results for this | | SMEAR | e | 12:13 PM | | procedure are in the | | | | PST | | results section. | + +--------+ + + + | UA, MICROSCOPIC, | Routin | 11/13/2013 | | Results for this | | REFLEX | e | 10:57 AM | | procedure are in the | | | | PST | | results section. | + +--------+ + + + | URINALYSIS, REFLEX | Routin | 11/13/2013 | | Results for this | | MICROSCOPIC AND/OR | e | 10:57 AM | | procedure are in the | | CULTURE | | PST | | results section. | + +--------+ + + + documented in this encounter Results Culture, Urine, Smear (11/13/2013 12:13 PM PST) + + + + + + | Component | Value | Ref Range | Performed | Pathologist | | | | | At | Signature | + + + + + + | Gram Stain | GRAM STAIN: | | [facility] | | | Result | RARE WBC/HPF | | [facility] | | | | RARE RBC | | MEDICAL | | | | NO ORGANISMS SEEN | | CENTER - | | | | | | LABORATORY | | + + + + + + | CULTURE | No growth at 2 days | | [facility] | | | BACTERIA | | | [facility] | | | URINE | | | MEDICAL | | | | | | CENTER - | | | | | | LABORATORY | | + + + + + + + + | Specimen | + + | Urine specimen | | (specimen) - Other | + + + + + | Narrative | Performed At | + + + | YELLOW CLEAR | [facility] | | | [facility] | | | [facility] | | | - LABORATORY | + + + + + + + + | Performing | Address | City/State/Zipcode | Phone Number | | Organization | | | | + + + + + | [facility] | [address] | [place], [place] | [phone] | | [facility] | | [address] | | | - LABORATORY | | | | + + + + + | [facility] | [address] | [place], [place] | | | [facility] | | [address] [place] [address] | | | - LABORATORY | | | | + + + + + UA, Microscopic, Reflex (11/13/2013 10:57 AM PST) + + + + + + | Component | Value | Ref Range | Performed | Pathologist | | | | | At | Signature | + + + + + + | White Blood | NONE | 0 - 5 /hpf | [facility] | | | Cells, | | | [facility] | | | Urine | | | MEDICAL | | | | | | CENTER - | | | | | | LABORATORY | | + + + + + + | Red Blood | 3-10 (H) | 0 - 3 /hpf | [facility] | | | Cells, | | | [facility] | | | Urine | | | MEDICAL | | | | | | CENTER - | | | | | | LABORATORY | | + + + + + + | Squamous | RARE | FEW /hpf | [facility] | | | Epithelial | | | [facility] | | | Cells, | | | MEDICAL | | | Urine | | | CENTER - | | | | | | LABORATORY | | + + + + + + | Bacteria, | NONE | NONE /hpf | [facility] | | | Urine | | | [facility] | | | | | | MEDICAL | | | | | | CENTER - | | | | | | LABORATORY | | + + + + + + | Culture | YESComment: REFLEXED TO | | [facility] | | | Indicated | URINE CULTURE. | | [facility] | | | [...] | + + + + + | [facility] | [address] | [place], [place] | [phone] | | [facility] | | [address] | | | - LABORATORY | | | | + + + + + | [facility] | [address] | [place], [place] | | | [facility] | | [address] [place] [address] | | | - LABORATORY | | | | + + + + + Urinalysis, Reflex Microscopic and/or Culture (11/13/2013 10:57 AM PST) + + + + + + | Component | Value | Ref Range | Performed | Pathologist | | | | | At | Signature | + + + + + + | COLLECTION | CL.CATCH | | [facility] | | | METHOD [facility] | | | [facility] | | | | | | MEDICAL | | | | | | CENTER - | | | | | | LABORATORY | | + + + + + + | Color, | YELLOW | | [facility] | | | Urine | | | [facility] | | | | | | MEDICAL | | | | | | CENTER - | | | | | | LABORATORY | | + + + + + + | Clarity | CLEAR | | [facility] | | | | | | [facility] | | | | | | MEDICAL | | | | | | CENTER - | | | | | | LABORATORY | | + + + + + + | Glucose, | NEGATIVE | NEGATIVE mg/dL | [facility] | | | Urine | | | [facility] | | | | | | MEDICAL | | | | | | CENTER - | | | | | | LABORATORY | | + + + + + + | Bilirubin, | NEGATIVE | NEGATIVE | [facility] | | | Urine | | | [facility] | | | | | | MEDICAL | | | | | | CENTER - | | | | | | LABORATORY | | + + + + + + | Ketones, | NEGATIVE | NEGATIVE | [facility] | | | Urine | | | [facility] | | | | | | MEDICAL | | | | | | CENTER - | | | | | | LABORATORY | | + + + + + + | Specific | <=1.005 | 1.001 - 1.030 | [facility] | | | Hope, | | | [facility] | | | Urine | | | MEDICAL | | | | | | CENTER - | | | | | | LABORATORY | | + + + + + + | Blood, | MOD | NEGATIVE | [facility] | | | Urine | | | [facility] | | | | | | MEDICAL | | | | | | CENTER - | | | | | | LABORATORY | | + + + + + + | pH, Urine | 6.0 | 5.0 - 8.0 | [facility] | | | | | | [facility] | | | | | | MEDICAL | | | | | | CENTER - | | | | | | LABORATORY | | + + + + + + | Protein, | NEGATIVE | NEGATIVE mg/dL | [facility] | | | Urine | | | [facility] | | | | | | MEDICAL | | | | | | CENTER - | | | | | | LABORATORY | | + + + + + + | Urobilinoge | NORMAL | NORMAL EU/dL | [facility] | | | n, Urine | | | [facility] | | | | | | MEDICAL | | | | | | CENTER - | | | | | | LABORATORY | | + + + + + + | Nitrite, | NEGATIVE | NEGATIVE | [facility] | | | Urine | | | [facility] | | | | | | MEDICAL | | | | | | CENTER - | | | | | | LABORATORY | | + + + + + + | Leukocyte | NEGATIVE | NEGATIVE | [facility] | | | Esterase, | | | [facility] | | | Urine | | | MEDICAL | | | | | | CENTER - | | | | | | LABORATORY | | + + + + + + | MICROSCOPIC | YES | | [facility] | | | ? | | | [facility] | | [...] + | [facility] | [address] | [place] | [phone] | | [facility] | | [id number] | | | - LABORATORY | | | | + + + + + | [facility] | [address] | [place], [place] | | | [facility] | | [id number] | | | - LABORATORY | | | | + + + + + documented in this encounter Visit Diagnoses Not on filedocumented in this encounter"
--- OUTSIDE RECORDS SUMMARY | ~2020-03-26 | XMS | Encounter Summary ---
Demographics + + + | Address | [address] | | | [place] [address] | + + + | Home Phone | | + + + | Preferred Language | Unknown | + + + | Marital Status | | + + + | Catholic Affiliation | 1009 | + + + | Race | Unknown | + + + | Ethnic Group | Unknown | + + + Author + + + | Author | [facility] | | | and [place] | + + + | Organization | [facility] | | | and [place] [...] [place] | | | | | [address] | | + + + + + | Floyd Herndon | ECON | NA | | | | | NA, | | + + + + + Care Team Providers + +------+ + | Care Law Librarian Name | Role | Phone | + [...] | +--------+ + + + + | 04/20/ | Telephone | [facility] | Jordin Padron, | Appointment | | 2019 | | [address] | MD [address] | | | | | [place] | [place] | | | | | [address] | [address] | | | | | [phone] | | | +--------+ + + + [...]
--- OUTSIDE RECORDS SUMMARY | ~2020-03-26 | XMS | Encounter Summary ---
Demographics + + + | Address | [address] | | | [place] [address] | + + + | Home Phone | | + + + | Preferred Language | Unknown | + + + | Marital Status | | + + + | Scientology Affiliation | 1009 | + + + | Race | Unknown | + + + | Ethnic Group | Unknown | + + + Author + + + | Author | [facility] | | | and [place] | + + + | Organization | [facility] | | | and [...] [place] | | | | | [address] | | + + + + + | Floyd Herndon | ECON | NA | | | | | NA, | | + + + + + Care Team Providers + +------+ + | Care Picking Crew Supervisor Name | Role | Phone | + +------+ + | Beltran Fields MD | PCP | | + +------+ + Reason for Visit +--------+ + | Reason | Comments | +--------+ + | Other | Iron Supplement | +--------+ + Encounter Details +--------+ + + + + | Date | Type | Department | Care Team | Description | +--------+ + + + + | 12/10/ | Telephone | [facility] [place] [facility] | Beltran Fields, | Other (Iron | | 2016 | | MEDICINE [address] | [address] | Supplement) | | | | [place] | [address] [place], | | | | | [place] [address] | [place] [address] | | | | | [phone] | [phone] | | | | | | | [...]
--- OUTSIDE RECORDS SUMMARY | ~2020-03-26 | XMS | Encounter Summary ---
Demographics + + + | Address | [address] | | | [place] [address] | + + + | Home Phone [...] | Author | [facility] | | | and [place] | + + + | Organization | [facility] | | [...] [place] | | | | | [address] | | + + + + + | Floyd Herndon | ECON | NA | | | | | NA, | | + + + + + Care Team Providers + +------+ + | Care Database Management System Specialist Name | Role | Phone | [...] Description | +--------+--------+ + + + | 07/26/ | Refill | [facility] [place] [facility] | Beltran Fields, | Medication Refill | | 2014 | | MEDICINE [facility] All | [address] [place] [address] | | | | | [place] | [address] [place], | | | | | [place] [address] | [place] [address] | | | | | [phone] | [phone] | | | | | | | [...]
--- OUTSIDE RECORDS SUMMARY | ~2020-03-26 | XMS | Encounter Summary ---
Demographics + + + | Address | [address] | | | [place] [address] | + + + | Home Phone [...] | Author | [facility] | | | and [place] | + + + | Organization | [facility] | | | and [...] [place] | | | | | [address] | | + + + + + | Floyd Herndon | ECON | NA | | | | | NA, | | + + + + + Care Team Providers + +------+ + | Care Home Teaching Grades 9 Thru 12 Teacher Name | Role | Phone | + +------+ + | Beltran Fields MD | PCP | | + +------+ + Encounter Details +--------+ + + + + | Date | Type | Department | Care Team | Description | +--------+ + + + + | 11/30/ | Abstract | [facility] [place] [facility] | Jordin Padron, | | | 2013 | | [address] | MD [address] | | | | | [place] | [place] | | | | | [address] | [address] | | | | | [phone] | | | +--------+ + + + [...] + | URINALYSIS, REFLEX | Routin | 11/24/2013 | | Results for this | | MICROSCOPIC AND/OR | e | 12:19 PM | | procedure are in the | | CULTURE | | PST | | results section. | + +--------+ + + + documented in this encounter Results Urinalysis, Reflex Microscopic and/or Culture (11/24/2013 12:19 PM PST) + + + + + + | Component | Value | Ref Range | Performed | Pathologist | | | | | At | Signature | + + + + + + | COLLECTION | clean catch | | [facility] | | | [facility] | | | [facility] | | | | | | [facility] | | | | | | C[facility] - | | | | | | LABORATORY | | + + + + + + | Color | straw | | [facility] | | | | | | [facility] | | | | | | MEDICAL | | | | | | CENTER - | | | | | | LABORATORY | | + + + + + + | Clarity | Clear | Clear | [facility] | | | | | | [facility] | | | | | | MEDICAL | | | | | | CENTER - | | | | | | LABORATORY | | + + + + + + | Specific | 1.005 | | [facility] | | | [place], | | | [facility] | | | Urine | | | MEDICAL | | | | | | CENTER - | | | | | | LABORATORY | | + + + + + + | pH, Urine | 7.0 | | [facility] | | | | | | [facility] | | | | | | MEDICAL | | | | | | CENTER - | | | | | | LABORATORY | | + + + + + + | Glucose, | Negative | Negative | [facility] | | | Urine | | | [facility] | | | | | | MEDICAL | | | | | | CENTER - | | | | | | LABORATORY | | + + + + + + | Ketones, | Negative | | [facility] | | | Urine | | | [facility] | | | | | | MEDICAL | | | | | | CENTER - | | | | | | LABORATORY | | + + + + + + | Bilirubin, | Negative | Negative | [facility] | | | Urine | | | [facility] | | | | | | MEDICAL | | | | | | CENTER - | | | | | | LABORATORY | | + + + + + + | Blood, | Negative | Negative | [facility] | | | Urine | | | [facility] | | | | | | MEDICAL | | | | | | CENTER - | | | | | | LABORATORY | | + + + + + + | Nitrite, | Negative | Negative | [facility] | | | Urine | | | [facility] | | | | | | MEDICAL | | | | | | CENTER - | | | | | | LABORATORY | | + + + + + + | Urobilinoge | Negative | Negative | [facility] | | | n, Urine | | | [facility] | | | | | | MEDICAL | | | | | | CENTER - | | | | | | LABORATORY | | + + + + + + | Leukocyte | Negative | Negative | [facility] | | | Esterase, | | | [facility] | | | Urine | | | MEDICAL | | | | | | CENTER - | | | | | | LABORATORY | | + + + + + + | White Blood | 0-2Comment: 0 | 0 - 2 /HPF | [facility] | | | Cells, | | | [facility] | | | Urine | | | MEDICAL | | | | | | CENTER - | | | | | | LABORATORY | | + + + + + + | Red Blood | 0-2Comment: 0 | 0 - 2 /HPF | [facility] | | | Cells, | | | [facility] | | | Urine | | | MEDICAL | | | | | | CENTER - | | | | | | LABORATORY | | + + + + + + | Epithelial | 0-2Comment: negative | 0 - 2 /LPF | [facility] | | | Casts, | | | [facility] | | | Urine | | | MEDICAL | | | | | | CENTER - | | | | | | LABORATORY | | + + + + + + | Bacteria, | Negative | Negative /HPF | [facility] | | | Urine | | | [facility] | | | | | | MEDICAL | | | | | | CENTER - | | | | | | LABORATORY | | + + + + + + | Protein, | Negative | Negative | [facility] | | | Urine | | | [facility] | | | | | | MEDICAL | | | | | | CENTER - | | | | | | LABORATORY | | + + + + + + + + | Specimen | + + | Urine specimen | | (specimen) | + + + + + + + | Performing | Address | City/State/Zipcode | Phone Number | | Organization | | | | + + + + + | [facility] | [address] | [place] | | | [facility] | | [id number] | | | - LABORATORY | | | | + + + + + documented in this encounter Visit Diagnoses Not on filedocumented in this encounter"
--- OUTSIDE RECORDS SUMMARY | ~2020-03-26 | XMS | Encounter Summary ---
Demographics + + + | Address | [address] | | | [place] [address] | + + + | Home Phone [...] | Author | [facility] | | | and [place] | + + + | Organization | [facility] | | | and [place] [...] [place] | | | | | [address] | | + + + + + | Floyd Herndon | ECON | NA | | | | | NA, | | + + + + + Care Team Providers + +------+ + | Care Marine Photographer Name | Role | Phone | + [...] Description | +--------+--------+ + + + | 04/04/ | Refill | [facility] [place] [facility] | Beltran Fields, | Medication Refill | | 2017 | | MEDICINE [facility] All | [address] | | | | | [place] | [address] [place], | | | | | [place] [address] | [place] [address] | | | | | [phone] | [phone] | | | | | | | [...]
--- OUTSIDE RECORDS SUMMARY | ~2020-03-26 | XMS | Encounter Summary ---
Demographics + + + | Address | [address] | | | [place] [address] | + + + | Home Phone [...] | Author | [facility] | | | and [place] | + + + | Organization | [facility] [...] [place] | | | | | [address] | | + + + + + | Floyd Herndon | ECON | NA | | | | | NA, | | + + + + + Care Team Providers + +------+ + | Care Sheeter Machine Operator Name | Role | Phone | + +------+ + | Beltran Fields MD | PCP | | + +------+ + Reason for Visit +--------+ + | Reason | Comments | +--------+ + | Other | Need 6 month PSA only due 05/14/14 | +--------+ + Encounter Details +--------+ + + + + | Date | Type | Department | Care Team | Description | +--------+ + + + + | 05/07/ | Telephone | [facility] [place] [facility] | Jordin Padron, | Other (Need 6 month | | 2013 | | [address] | MD [address] | PSA only due | | | | [place] | [place] | 05/14/14) | | | | [address] | [address] | | | | | [phone] | | | +--------+ + + + [...]
--- OUTSIDE RECORDS SUMMARY | ~2020-03-26 | XMS | Encounter Summary ---
Demographics + + + | Address | [address] | | | [place] [address] | + + + | Home Phone | | + + + | Preferred Language | Unknown | + + + | Marital Status | | + + + | Anabaptist Affiliation | 1009 | + + + | Race | Unknown | + + + | Ethnic Group | Unknown | + + + Author + + + | Author | [facility] | | | and [place] | + + + | Organization | [facility] | | | and [...] [place] | | | | | [address] | | + + + + + | Floyd Herndon | ECON | NA | | | | | NA, | | + + + + + Care Team Providers + +------+ + | Care Welder Production Line Gas Name | Role | Phone | + [...] | 09/29/ | Refill | [facility] [place] [facility] | Beltran Fields, | Medication Refill | | 2015 | | MEDICINE [facility] All | [address] [place] [address] | | | | | [facility] | [address] [place], | | | | | [place] [address] | [place] [address] | | | | | [phone] | [phone] | | | | | | | [...]
--- OUTSIDE RECORDS SUMMARY | ~2020-03-26 | XMS | Encounter Summary ---
Demographics + + + | Address | [address] | | | [place] [address] | + + + | Home Phone | | + + + | Preferred Language | Unknown | + + + | Marital Status | | + + + | Restorationist Affiliation | 1009 | + + + | Race | Unknown | + + + | Ethnic Group | Unknown | + + + Author + + + | Author | [facility] | | | and [place] | + + + | Organization | [facility] | | | and [place] | + + + | Address | Unknown | + + + | Phone | Unavailable | + + + Support + + + + + | Name | Relationship | Address | Phone | + + + + + | Yuliet Crow | ECON | [address] | | | | | [place], [place] | | | | | [address] | | + + + + + | Floyd Herndon | ECON | NA | | | | | NA, | | + + + + + Care Team Providers + +------+ + | Care Addictions Counselor Name | Role | Phone | + +------+ + | Beltran Fields MD | PCP | | + +------+ + Reason for Visit + + + | Reason | Comments | + + + | Medication Refill | | + + + | Medication Refill | | + + + Encounter Details +--------+--------+ + + + | Date | Type | Department | Care Team | Description | +--------+--------+ + + + | 08/24/ | Refill | [facility] | Beltran Fields, | Medication Refill; | | 2018 | | MEDICINE [place] | [address] | Medication Refill | | | | [address] | [address] [place], | | | | | [place] | [place] [address] | | | | | [address] | [phone] | | | | | [phone] | | | +--------+--------+ + + + [...]
--- OUTSIDE RECORDS SUMMARY | ~2020-03-26 | XMS | Encounter Summary ---
Demographics + + + | Address | [address] | | | [place] [address] | + + + | Home Phone | | + + + | Preferred Language | Unknown | + + + | Marital Status | | + + + | Hinduism Affiliation | 1009 | + + + | Race | Unknown | + + + | Ethnic Group | Unknown | + + + Author + + + | Author | [facility] | | | and [place] | + + + | Organization | [facility] | | | and [...] [place] | | | | | [address] | | + + + + + | Floyd Herndon | ECON | NA | | | | | NA, | | + + + + + Care Team Providers + +------+ + | Care Plexiglas Former Name | Role | Phone | + [...] Refill | | 2019 | | MEDICINE [place] | [address] | | | | | [address] | [address] [place], | | | | | [place] | [place] [address] | | | | | [address] | [phone] | | | | | [phone] | | | +--------+--------+ + + + [...]
--- OUTSIDE RECORDS SUMMARY | ~2020-03-26 | XMS | Encounter Summary ---
Demographics + + + | Address | [address] | | | [place] [address] | + + + | Home Phone [...] | [facility] | | | and [place] | + + + | Organization | [facility] | | | and [place] | [...] [place] | | | | | [address] | | + + + + + | Floyd Herndon | ECON | NA | | | | | NA, | | + + + + + Care Team Providers + +------+ + | Care Re Etcher Name | Role | Phone | + [...] Description | +--------+--------+ + + + | 02/10/ | Refill | [facility] [place] [facility] | Beltran Fields, | Medication Refill | | 2018 | | MEDICINE [facility] All | [address] | | | | | [place] | [address] [place], | | | | | [place] [address] | [place] [address] | | | | | [phone] | [phone] | | | | | | | [...]
--- OUTSIDE RECORDS SUMMARY | ~2020-03-26 | XMS | Encounter Summary ---
Demographics + + + | Address | [address] | | | [place] [address] | + + + | Home Phone | | + + + | Preferred Language | Unknown | + + + | Marital Status | | + + + | Protestant Affiliation | 1009 | + + + | Race | Unknown | + + + | Ethnic Group | Unknown | + + + Author + + + | Author | [facility] | | | and [place] | + + + | Organization | [facility] | | | and [...] [place] | | | | | [address] | | + + + + + | Floyd Herndon | ECON | NA | | | | | NA, | | + + + + + Care Team Providers + +------+ + | Care Tacking Stitch Remover Name | Role | Phone | + +------+ + | Beltran Fields MD | PCP | | + +------+ + Encounter Details +--------+ + + + + | Date | Type | Department | Care Team | Description | +--------+ + + + + | 04/14/ | Orders Only | [facility] [place] [facility] | Jordin Padron, | BPH with urinary | | 2019 | | [address] | MD [address] | obstruction (Primary | | | | [place], [place] | [place], [place] | Dx) | | | | [address] | [address] | | | | | [phone] | | | +--------+ + + + [...] as of this encounter Plan of Treatment + +------+--------+ + + | Name | Type | Priori | Associated Diagnoses | Order Schedule | | | | ty | | | + +------+--------+ + + | Basic Metabolic | Lab | Routin | BPH with urinary | Expected: 04/15/2019 | | Panel | | e | obstruction | (Approximate), | | | | | | Expires: 06/14/2020 | + +------+--------+ + + | PSA, Screen | Lab | Routin | BPH with urinary | Expected: 04/15/2020 | | | | e | obstruction | (Approximate), | | | | | | Expires: 06/14/2020 | + +------+--------+ + + documented as of this encounter Visit Diagnoses + + | Diagnosis | + + | 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
--- OUTSIDE RECORDS SUMMARY | ~2020-03-26 | XMS | Encounter Summary ---
Demographics + + + | Address | [address] | | | [place] [address] | + + + | Home Phone | | + + + | Preferred Language | Unknown | + + + | Marital Status | | + + + | Mosque Affiliation | 1009 | + + + | Race | Unknown | + + + | Ethnic Group | Unknown | + + + Author + + + | Author | [facility] | | | and [place] | + + + | Organization | [facility] | | | and [place] [...] [place] | | | | | [address] | | + + + + + | Floyd Herndon | ECON | NA | | | | | NA, | | + + + + + Care Team Providers + +------+ + | Care Anesthesiologist Physician Name | Role | Phone | + [...] Description | +--------+--------+ + + + | 12/03/ | Refill | [facility] [place] [facility] | Beltran Fields, | Medication Refill | | 2017 | | MEDICINE [facility] All | [address] | | | | | [place] | [address] [place], | | | | | [place] [address] | [place] [address] | | | | | [phone] | [phone] | | | | | | | [...]
--- OUTSIDE RECORDS SUMMARY | ~2020-03-26 | XMS | Encounter Summary ---
Demographics + + + | Address | [address] | | | [place] [address] | + + + | Home Phone | | + + + | Preferred Language | Unknown | + + + | Marital Status | | + + + | Buddhist Affiliation | 1009 | + + + | Race | Unknown | + + + | Ethnic Group | Unknown | + + + Author + + + | Author | [facility] | | | and [place] | + + + | Organization | [facility] | | | and [place] [...] [place] | | | | | [address] | | + + + + + | Floyd Herndon | ECON | NA | | | | | NA, | | + + + + + Care Team Providers + +------+ + | Care Cyber Crime Investigator Name | Role | Phone | + +------+ + | Beltran Fields MD | PCP | | + +------+ + Encounter Details +--------+ + + + + | Date | Type | Department | Care Team | Description | +--------+ + + + + | 02/22/ | Telephone | [facility] [place] [facility] | Beltran Fields, | | | 2019 | | [facility] | [address] | | | | | [address] | [address] [place], | | | | | [place] | [place] [address] | | | | | [address] | [phone] | | | | | [phone] | | | +--------+ + + + [...]
--- OUTSIDE RECORDS SUMMARY | ~2020-03-26 | XMS | Encounter Summary ---
Demographics + + + | Address | [address] | | | [place] [address] | + + + | Home Phone | | + + + | Preferred Language | Unknown | + + + | Marital Status | | + + + | Scientology Affiliation | 1009 | + + + | Race | Unknown | + + + | Ethnic Group | Unknown | + + + Author + + + | Author | [facility] | | | and [place] | + + + | Organization | [facility] | | | and [place] | [...] [place] | | | | | [address] | | + + + + + | Floyd Herndon | ECON | NA | | | | | NA, | | + + + + + Care Team Providers + +------+ + | Care Commissioner Of Relocation Services Name | Role | Phone | + [...] | +--------+ + + + + | 12/13/ | Telephone | [facility] | Beltran Fields, | Appointment | | 2018 | | MEDICINE [address] | [address] | | | | | [place] | [address] [place], | | | | | [place] [address] | [place] [address] | | | | | [phone] | [phone] | | | | | | | [...]
--- OUTSIDE RECORDS SUMMARY | ~2020-03-26 | XMS | Encounter Summary ---
Demographics + + + | Address | [address] | | | [place] [address] | + + + | Home Phone [...] Author | [facility] | | | and [place] | + + + | Organization | [facility] | | | and [place] [...] [place] | | | | | [address] | | + + + + + | Floyd Herndon | ECON | NA | | | | | NA, | | + + + + + Care Team Providers + +------+ + | Care Auto Rental Clerk Name | Role | Phone | [...] | 12/03/ | Refill | [facility] [place] [facility] | Beltran Fields, | Medication Refill | | 2014 | | MEDICINE [facility] All | [address] [place] [address] | | | | | [place] | [address] [place], | | | | | [place] [address] | [place] [address] | | | | | [phone] | [phone] | | | | | | | [...]
--- OUTSIDE RECORDS SUMMARY | ~2020-03-26 | XMS | Encounter Summary ---
Demographics + + + | Address | [address] | | | [place] [address] | + + + | Home Phone | | + + + | Preferred Language | Unknown | + + + | Marital Status | | + + + | Jew Affiliation | 1009 | + + + | Race | Unknown | + + + | Ethnic Group | Unknown | + + + Author + + + | Author | [facility] | | | and [place] | + + + | Organization | [facility] | | | and [place] [...] [place] | | | | | [address] | | + + + + + | Floyd Herndon | ECON | NA | | | | | NA, | | + + + + + Care Team Providers + +------+ + | Care Casino Cage Cashier Name | Role | Phone | + [...] Description | +--------+--------+ + + + | 10/06/ | Refill | [facility] [place] [facility] | Beltran Fields, | Medication Refill | | 2012 | | MEDICINE [facility] | [address] | | | | | [address] | [address] [place] [place], | | | | | [place] | [place] [address] | | | | | [address] | [phone] | | | | | [phone] | | | +--------+--------+ + + + [...]
--- OUTSIDE RECORDS SUMMARY | ~2020-03-26 | XMS | Encounter Summary ---
Demographics + + + | Address | [address] | | | [place] [address] | + + + | Home Phone | | + + + | Preferred Language | Unknown | + + + | Marital Status | | + + + | Muslim Affiliation | 1009 | + + + | Race | Unknown | + + + | Ethnic Group | Unknown | + + + Author + + + | Author | [facility] | | | and [place] | + + + | Organization | [facility] | [...] [place] | | | | | [address] | | + + + + + | Floyd Herndon | ECON | NA | | | | | NA, | | + + + + + Care Team Providers + +------+ + | Care Staff Software Engineer Name | Role | Phone | [...] | 11/16/ | Refill | [facility] [place] [facility] | Beltran Fields, | Medication Refill | | 2013 | | MEDICINE [facility] All | [address] | | | | | [facility] | [address] [place], | | | | | [place] [address] | [place] [address] | | | | | [phone] | [phone] | | | | | | | [...]
--- OUTSIDE RECORDS SUMMARY | ~2020-03-26 | XMS | Encounter Summary ---
Demographics + + + | Address | [address] | | | [place] [address] | + + + | Home Phone | | + + + | Preferred Language | Unknown | + + + | Marital Status | | + + + | Islam Affiliation | 1009 | + + + | Race | Unknown | + + + | Ethnic Group | Unknown | + + + Author + + + | Author | [facility] | | | and [place] | + + + | Organization | [facility] | | | and [...] [place] | | | | | [address] | | + + + + + | Floyd Herndon | ECON | NA | | | | | NA, | | + + + + + Care Team Providers + +------+ + | Care Technology Resource Teacher Name | Role | Phone | + +------+ + PCP | Unavailable | + +------+ + Encounter Details +--------+ + + + + | Date | Type | Department | Care Team | Description | +--------+ + + + + | 01/12/ | Hospital | [facility] | | | | 2006 | Encounter | [facility] | | | | | | [address] | | | | | | [place] | | | | | | [address] | | | | | | [phone] | | | +--------+ + + + [...]
--- OUTSIDE RECORDS SUMMARY | ~2020-03-26 | XMS | Encounter Summary ---
Demographics + + + | Address | [address] | | | [place] [address] | + + + | Home Phone | | + + + | Preferred Language | Unknown | + + + | Marital Status | | + + + | Synagogue Affiliation | 1009 | + + + | Race | Unknown | + + + | Ethnic Group | Unknown | + + + Author + + + | Author | [facility] | | | and [place] | + + + | Organization | [facility] | | | and [...] [place] | | | | | [address] | | + + + + + | Floyd Herndon | ECON | NA | | | | | NA, | | + + + + + Care Team Providers + +------+ + | Care Bacteriologist Food Name | Role | Phone | + [...] Description | +--------+--------+ + + + | 11/17/ | Refill | [facility] [place] [facility] | Beltran Fields, | Medication Refill | | 2019 | | MEDICINE [facility] All | [address] | | | | | [place] | [address] [place], | | | | | [place] [address] | [place] [address] | | | | | [phone] | [phone] | | | | | | | [...]
--- OUTSIDE RECORDS SUMMARY | ~2020-03-26 | XMS | Encounter Summary ---
Demographics + + + | Address | [address] | | | [place] [address] | + + + | Home Phone [...] + | Author | [facility] | | | and [place] | + + + | Organization | [facility] | | [...] [place] | | | | | [address] | | + + + + + | Floyd Herndon | ECON | NA | | | | | NA, | | + + + + + Care Team Providers + +------+ + | Care Packaging Engineer Name | Role | Phone | [...] Description | +--------+--------+ + + + | 06/15/ | Refill | [facility] [place] [facility] | Beltran Fields, | Medication Refill | | 2012 | | MEDICINE [facility] All | [address] [place] [address] | | | | | [facility] | [address] [place], | | | | | [place] [address] | [place] [address] | | | | | [phone] | [phone] | | | | | | | [...]
--- OUTSIDE RECORDS SUMMARY | ~2020-03-26 | XMS | Encounter Summary ---
Demographics + + + | Address | [address] | | | [place] [address] | + + + | Home Phone | | + + + | Preferred Language | Unknown | + + + | Marital Status | | + + + | Mandaeism Affiliation | 1009 | + + + | Race | Unknown | + + + | Ethnic Group | Unknown | + + + Author + + + | Author | [facility] | | | and [place] | + + + | Organization | [facility] | | | and [place] [...] [place] | | | | | [address] | | + + + + + | Floyd Herndon | ECON | NA | | | | | NA, | | + + + + + Care Team Providers + +------+ + | Care Electrical Installation Inspector Name | Role | Phone | + [...] | 12/01/ | Refill | [facility] [place] [facility] | Beltran Fields, | Medication Refill | | 2020 | | MEDICINE [place] | [address] | | | | | [address] | [address] [place], | | | | | [place] | [place] [address] | | | | | [address] | [phone] | | | | | [phone] | | | +--------+--------+ + + + [...]
--- OUTSIDE RECORDS SUMMARY | ~2020-03-26 | XMS | Encounter Summary ---
Demographics + + + | Address | [address] | | | [place] [address] | + + + | Home Phone | | + + + | Preferred Language | Unknown | + + + | Marital Status | | + + + | Jehovah'S Witness Affiliation | 1009 | + + + | Race | Unknown | + + + | Ethnic Group | Unknown | + + + Author + + + | Author | [facility] | | | and [place] | + + + | Organization | [facility] | | | [...] [place] | | | | | [address] | | + + + + + | Floyd Herndon | ECON | NA | | | | | NA, | | + + + + + Care Team Providers + +------+ + | Care Steam Turbine Assembler Name | Role | Phone | + +------+ + | Beltran Fields MD | PCP | | + +------+ + Encounter Details +--------+ + + + + | Date | Type | Department | Care Team | Description | +--------+ + + + + | 11/11/ | Orders Only | [facility] [place] [facility] | Jordin Padron, | Elevated prostate | | 2011 | | [address] | MD [address] | specific antigen | | | | [place], [place] | [place], [place] | (PSA) (Primary Dx) | | | | [address] | [address] | | | | | [phone] | | | +--------+ + + + [...] Comments | + + +---------+ + | No | | | | + + +---------+ + + + [...] | | + +------+--------+ + + | PSA Diagnostic | Lab | Routin | Elevated prostate | Expected: 04/03/2013 | | | | e | specific antigen | (Approximate), | | | | | (PSA) | Expires: 11/11/2013 | + +------+--------+ + + documented as of this encounter Visit Diagnoses + + | Diagnosis | + + | Elevated prostate specific antigen (PSA) - Primary | + + documented in this encounter"
--- OUTSIDE RECORDS SUMMARY | ~2020-03-26 | XMS | Encounter Summary ---
Demographics + + + | Address | [address] | | | [place] [address] | + + + | Home Phone [...] | Author | [facility] | | | and [place] | + + + | Organization | [facility] | | | and [place] [...] [place] | | | | | [address] | | + + + + + | Floyd Herndon | ECON | NA | | | | | NA, | | + + + + + Care Team Providers + +------+ + | Care Baseball Player Name | Role | Phone | + [...] Description | +--------+--------+ + + + | 04/23/ | Refill | [facility] [place] [facility] | Beltran Fields, | Medication Refill | | 2013 | | MEDICINE [facility] All | [address] [place] [address] | | | | | [facility] | [address], | | | | | [place] [address] | [place] [address] | | | | | [phone] | [phone] | | | | | | | [...]
--- OUTSIDE RECORDS SUMMARY | ~2020-03-26 | XMS | Encounter Summary ---
Demographics + + + | Address | [address] | | | [place] [address] | + + + | Home Phone | | + + + | Preferred Language | Unknown | + + + | Marital Status | | + + + | Confucianism Affiliation | 1009 | + + + | Race | Unknown | + + + | Ethnic Group | Unknown | + + + Author + + + | Author | [facility] | | | and [place] | + + + | Organization | [facility] | | | and [place] [...] [place] | | | | | [address] | | + + + + + | Floyd Herndon | ECON | NA | | | | | NA, | | + + + + + Care Team Providers + +------+ + | Care Appointment Coordinator Name | Role | Phone | + [...] + | 02/12/ | Refill | [facility] | Beltran Fields, | Medication Refill | | 2013 | | MED CTR LAB[facility] | [address] | | | | | [address] [place] | [address] [place], | | | | | [place], [place] | [place] [address] | | | | | [address] | [phone] | | | | | [phone] | | | +--------+--------+ + + + [...]
--- OUTSIDE RECORDS SUMMARY | ~2020-03-26 | XMS | Encounter Summary ---
Demographics + + + | Address | [address] | | | [place] [address] | + + + | Home Phone | | + + + | Preferred Language | Unknown | + + + | Marital Status | | + + + | Anglican Affiliation | 1009 | + + + | Race | Unknown | + + + | Ethnic Group | Unknown | + + + Author + + + | Author | [facility] | | | and [place] | + + + | Organization | [facility] | | | and [place] [...] [place] | | | | | [address] | | + + + + + | Floyd Herndon | ECON | NA | | | | | NA, | | + + + + + Care Team Providers + +------+ + | Care Financial Wellness Coach Name | Role | Phone | + +------+ + PCP | Unavailable | + +------+ + Encounter Details +--------+ + + + + | Date | Type | Department | Care Team | Description | +--------+ + + + + | 12/03/ | Hospital | [facility] | | | | 2004 - | Encounter | [facility] GENER[facility] OP | | | | | | CONV DEPT [address] | | | | 01/02/ | | [place], | | | | 2004 | | [place] [address] | | | | | | [phone] | | | +--------+ + + + [...]
--- OUTSIDE RECORDS SUMMARY | ~2020-03-26 | XMS | Encounter Summary ---
Demographics + + + | Address | [address] | | | [place] [address] | + + + | Home Phone | | + + + | Preferred Language | Unknown | + + + | Marital Status | | + + + | Protestant Affiliation | 1009 | + + + | Race | Unknown | + + + | Ethnic Group | Unknown | + + + Author + + + | Author | [facility] | | | and [place] | + + + | Organization | [facility] | | | and [place] [...] [place] | | | | | [address] | | + + + + + | Floyd Herndon | ECON | NA | | | | | NA, | | + + + + + Care Team Providers + +------+ + | Care Cleaning Professional Name | Role | Phone | + [...] Description | +--------+--------+ + + + | 01/04/ | Refill | [facility] [place] [facility] | Beltran Fields, | Medication Refill | | 2014 | | MEDICINE [facility] All | [address] [place] [address] | | | | | [facility] | [address], | | | | | [place] [address] | [place] [address] | | | | | [phone] | [phone] | | | | | | | [...]
--- OUTSIDE RECORDS SUMMARY | ~2020-03-26 | XMS | Encounter Summary ---
Demographics + + + | Address | [address] | | | [place] [address] | + + + | Home Phone | | + + + | Preferred Language | Unknown | + + + | Marital Status | | + + + | Methodist Affiliation | 1009 | + + + | Race | Unknown | + + + | Ethnic Group | Unknown | + + + Author + + + | Author | [facility] | | | and [place] | + + + | Organization | [facility] | | | and [place] [...] [place] | | | | | [address] | | + + + + + | Floyd Herndon | ECON | NA | | | | | NA, | | + + + + + Care Team Providers + +------+ + | Care Saddle Stitch Operator Name | Role | Phone | [...] Description | +--------+--------+ + + + | 08/26/ | Refill | [facility] [place] [facility] | Beltran Fields, | Medication Refill | | 2017 | | MEDICINE [facility] All | [address] | | | | | [place] | [address], | | | | | [place] [address] | [place] [address] | | | | | [phone] | [phone] | | | | | | | [...]
--- OUTSIDE RECORDS SUMMARY | ~2020-03-26 | XMS | Encounter Summary ---
Demographics + + + | Address | [address] | | | [place] [address] | + + + | Home Phone | | + + + | Preferred Language | Unknown | + + + | Marital Status | | + + + | Buddhism Affiliation | 1009 | + + + | Race | Unknown | + + + | Ethnic Group | Unknown | + + + Author + + + | Author | [facility] | | | and [place] | + + + | Organization | [facility] | | | and [...] [place] | | | | | [address] | | + + + + + | Floyd Herndon | ECON | NA | | | | | NA, | | + + + + + Care Team Providers + +------+ + | Care Patient Office Rep Name | Role | Phone | + +------+ + | Beltran Fields MD | PCP | | + +------+ + Encounter Details +--------+ + + + + | Date | Type | Department | Care Team | Description | +--------+ + + + + | 08/21/ | Abstract | [place] [facility] | Diamond[facility]tran, | | | 2011 | | Conversion Location | MD [address] | | | | | [address] | [address] [place], | | | | | [place], [place] | [place] [address] | | | | | [address] | [phone] | | | | | [phone] | | | +--------+ + + + [...]
--- OUTSIDE RECORDS SUMMARY | ~2020-03-26 | XMS | Encounter Summary ---
Demographics + + + | Address | [address] | | | [place] [address] | + + + | Home Phone | | + + + | Preferred Language | Unknown | + + + | Marital Status | | + + + | Episcopal Affiliation | 1009 | + + + | Race | Unknown | + + + | Ethnic Group | Unknown | + + + Author + + + | Author | [facility] | | | and [place] | + + + | Organization | [facility] | | | and [...] [place] | | | | | [address] | | + + + + + | Floyd Herndon | ECON | NA | | | | | NA, | | + + + + + Care Team Providers + +------+ + | Care Trouble Clerk Name | Role | Phone | [...] Description | +--------+--------+ + + + | 10/29/ | Refill | [facility] [place] [facility] | Beltran Fields, | Medication Refill | | 2016 | | MEDICINE [facility] All | [address] [place] [address] | | | | | [place] | [address] [place], | | | | | [place] [address] | [place] [address] | | | | | [phone] | [phone] | | | | | | | [...]
--- OUTSIDE RECORDS SUMMARY | ~2020-03-26 | XMS | Encounter Summary ---
Demographics + + + | Address | [address] | | | [place] [address] | + + + | Home Phone | | + + + | Preferred Language | Unknown | + + + | Marital Status | | + + + | Restorationist Affiliation | 1009 | + + + | Race | Unknown | + + + | Ethnic Group | Unknown | + + + Author + + + | Author | [facility] | | | and [place] | + + + | Organization | [facility] | [...] [place] | | | | | [address] | | + + + + + | Floyd Herndon | ECON | NA | | | | | NA, | | + + + + + Care Team Providers + +------+ + | Care Electronic Resources Librarian Name | Role | Phone | + +------+ + | Beltran Fields MD | PCP | | + +------+ + Encounter Details +--------+ + + + + | Date | Type | Department | Care Team | Description | +--------+ + + + + | 01/28/ | Orders Only | [facility] [place] [facility] | Beltran Fields, | Other hyperlipidemia | | 2016 | | MEDICINE [address] | [address] | (Primary Dx); | | | | [address] [place] | [address] [place], | Essential | | | | [place] [address] | [place] [address] | hypertension, | | | | [phone] | [phone] | benign; Other | | | | | | allergic rhinitis; | | | | | | Hematuria | +--------+ + + + + Social [...] | Diagnosis | + + | Other hyperlipidemia - Primary | + + | Essential hypertension, benign | + + | Other allergic rhinitis | + + | Hematuria Hematuria, unspecified | + + documented in this encounter"
--- OUTSIDE RECORDS SUMMARY | ~2020-03-26 | XMS | Encounter Summary ---
Demographics + + + | Address | [address] | | | [place] [address] | + + + | Home Phone [...] Author | [facility] | | | and [place] | + + + | Organization | [facility] | | | and [...] [place] | | | | | [address] | | + + + + + | Floyd Herndon | ECON | NA | | | | | NA, | | + + + + + Care Team Providers + +------+ + | Care Message And Delivery Service Pricer Name | Role | Phone | + +------+ + | Beltran Fields MD | PCP | | + +------+ + Reason for Visit + + + | Reason | Comments | + + + | CPAP Follow Up | | + + + Encounter Details +--------+---------+ + + + | Date | Type | Department | Care Team | Description | +--------+---------+ + + + | 02/07/ | Office | [facility] | Geronimo Iglesias PA | JEAN on CPAP (Primary | | 2019 | Visit | SLEEP DISORDER [address] | [address] | Dx) | | | | [address] | [place] | | | | | [place] [address] | [address] | | | | | [phone] | | | +--------+---------+ + + + Social History [...] + + + | Blood Pressure | 120/80 | 02/07/2019 1:54 PM | | | | | PDT | | + + + + + | Pulse | 60 | 02/07/2019 1:54 PM | | | | | PDT | | + + + + + | Temperature | - | - | | + + + + + | Respiratory Rate | 16 | 02/07/2019 1:54 PM | | | | | PDT | | + + + + + | Oxygen Saturation | 95% | 02/07/2019 1:54 PM | | | | | PDT | | + + + + + | Inhaled Oxygen | - | - | | | Concentration | | | | + + + + + | Weight | 119.3 kg (263 lb 0.1 | 02/07/2019 1:54 PM | | | | oz) | PDT | | + + + + + | Height | - | - | | + + + + + | Body Mass Index | 37.74 | 02/02/2017 7:06 AM | | | | | PDT | | + + + + + documented in this encounter Progress Geronimo Moran PA - 02/07/2019 2:00 PM PDT Subjective: Patient ID: Guy Thurman is a 73 y.o. male. HPI last office visit: 04/21/2016 date of polysomnography: 10/19/2001 AHI: 15.3 RDI: O2%: 87.8% Machine type: ResMed AirSense 10 Mask type: nasal mask DME: [facility] [place] pressure: 8-16 cm Median: 10.2 cm 95%: 11.7 cm maximum: 12.7 cm Nights using CPAP: 365/365 % of nights >4 hours: 99% average usage (all nights): 7:00 average usage (nights used): 7:00 AHI: 1.4 Guy comes in for CPAP compliance. He has used CPAP since 2000. He has a history of exce llent CPAP usage. His CPAP is a regular part of his sleep routine. He does not consider sl eeping without it. His main concern is that he often wakes in the morning with a very dry m outh. He is using a nasal mask and opens his mouth during the night. He has tried using a chin strap, but this does not help the dry mouth. He may be interested in using a full face mask, such as a [employer] F20 full face mask, RespirJustShareIt DreamWear full face mask or Respiron ics AmaraView full face mask. He is also due for a new machine, but he feels that his ResMe d S9 is still working fine. I have discussed the download in detail. This shows that his sleep apnea is controlled, wi th an AHI of 1.4. It also shows that his leaks are controlled. Review of Systems Objective: Physical Exam BP 120/80 | Pulse 60 | Resp 16 | Wt 119.3 kg (263 lb 0.1 oz) | SpO2 95% | BMI 37.74 kg /m Assessment: Problem #1: OBSTRUCTIVE SLEEP APNEA ([id number]-Z64.33) This is controlled with CPAP. His CPAP compliance is going well, but he has many mornings that he wakes with a dry mouth. Plan: 1. He is to continue with CPAP indefinitely. 2. He is to go to [facility] [place] to get a full face mask . 3. Touch base with medical supplier twice per year to ensure that all equipment is satisfa ctory. I will follow up again in 2 years, sooner prn. Fifteen minutes were spent [id number]-[id number], wi th the majority of time spent in counseling. Geronimo Iglesias PA-C cc: Beltran Fields MD orvictorina, Anaya, Medical As sistant - 02/07/2019 2:00 PM PDTFormatting of this note might be different from the origina lCarlos 02/07/19 1300 Lopez Depression Inventory-II Depression Score 5 - Minimal depression Insomnia Severity Index Insomnia Severity Index 15 Mcfaddin Sleepiness Scale 1. Sitting and reading 3 2. Watching TV 3 3. Sitting, inactive in a public place (e.g. a theatre or a meeting) 1 4. As a passenger in a car for an hour without a break 1 5. Lying down to rest in the afternoon when circumstances permit 2 6. Sitting and talking to someone 1 7. Sitting quietly after a lunch without alcohol 3 8. In a car, while stopped for a few minutes in traffic 0 Total score 14 SF-36v2 Score PF 46.06 RP 48.17 BP 38.21 GH 48.43 VT 49.63 SF 57.34 RE 56.17 MH 61.33 PCS 39.8 MCS 62.37 documented in this enco unter Plan of Treatment Not on filedocumented as of this encounter Visit Diagnoses + + | Diagnosis | + + | JEAN on CPAP - Primary Obstructive sleep apnea (adult) (pediatric) | + + documented in this encounter"
--- OUTSIDE RECORDS SUMMARY | ~2020-03-26 | XMS | Encounter Summary ---
Demographics + + + | Address | [address] | | | [place] [address] | + + + | Home Phone | | + + + | Preferred Language | Unknown | + + + | Marital Status | | + + + | Tenriism Affiliation | 1009 | + + + | Race | Unknown | + + + | Ethnic Group | Unknown | + + + Author + + + | Author | [facility] | | | and [place] | + + + | Organization | [facility] [...] [place] | | | | | [address] | | + + + + + | Floyd Herndon | ECON | NA | | | | | NA, | | + + + + + Care Team Providers + +------+ + | Care Trimming Operator Name | Role | Phone | [...] | 01/28/ | Refill | [facility] [place] [facility] | Beltran Fields, | Medication Refill | | 2015 | | MEDICINE [facility] All | [address] [place] [address] | | | | | [facility] | [address] [place], | | | | | [place] [address] | [place] [address] | | | | | [phone] | [phone] | | | | | | | [...]
--- OUTSIDE RECORDS SUMMARY | ~2020-03-26 | XMS | Encounter Summary ---
Demographics + + + | Address | [address] | | | [place] [address] | + + + | Home Phone | | + + + | Preferred Language | Unknown | + + + | Marital Status | | + + + | Sabianism Affiliation | 1009 | + + + | Race | Unknown | + + + | Ethnic Group | Unknown | + + + Author + + + | Author | [facility] | | | and [place] | + + + | Organization | [facility] | | | [...] [place] | | | | | [address] | | + + + + + | Floyd Herndon | ECON | NA | | | | | NA, | | + + + + + Care Team Providers + +------+ + | Care Medical Assistant Prn Name | Role | Phone | + [...] | [facility] [place] [facility] | Beltran iFelds, | Medication Refill | | 2020 | | MEDICINE [place] | [address] | | | | | [address] | [address] [place], | | | | | [place] | [place] [address] | | | | | [address] | [phone] | | | | | [phone] | | | +--------+--------+ + + + [...]
--- OUTSIDE RECORDS SUMMARY | ~2020-03-26 | XMS | Encounter Summary ---
Demographics + + + | Address | [address] | | | [place] [address] | + + + | Home Phone | | + + + | Preferred Language | Unknown | + + + | Marital Status | | + + + | Voodoo Affiliation | 1009 | + + + | Race | Unknown | + + + | Ethnic Group | Unknown | + + + Author + + + | Author | [facility] | | | and [place] | + + + | Organization | [facility] | | | and [place] [...] [place] | | | | | [address] | | + + + + + | Floyd Herndon | ECON | NA | | | | | NA, | | + + + + + Care Team Providers + +------+ + | Care Prepleater Name | Role | Phone | + [...] [place] | | | | | [address] | [address] | | | | | [phone] | | | +--------+ + + + [...] [address] | | [facility] | | | [place], | | | [facility] | | [...] [place] | [place] | | | [facility] | | [address] | | | - LABORATORY | | | | + + + + + documented in this encounter Visit Diagnoses Not on filedocumented in this encounter"
--- OUTSIDE RECORDS SUMMARY | ~2020-03-26 | XMS | Encounter Summary ---
Demographics + + + | Address | [address] | | | [place] [address] | + + + | Home Phone [...] | Author | [facility] | | | and [place] | + + + | Organization | [facility] | | | and [place] [...] [place] | | | | | [address] | | + + + + + | Floyd Herndon | ECON | NA | | | | | NA, | | + + + + + Care Team Providers + +------+ + | Care Switchboard Troubleshooter Name | Role | Phone | + +------+ + | Beltran Fields MD | PCP | | + +------+ + Reason for Visit + + + | Reason | Comments | + + + | Medicare Wellness | | + + + Encounter Details +--------+---------+ + + + | Date | Type | Department | Care Team | Description | +--------+---------+ + + + | 02/02/ | Office | [facility] | Beltran Fields, | Other hyperlipidemia | | 2017 | Visit | MEDICINE [address] [place] [address] | [address] | (Primary Dx); | | | | Street [place] | [address] [place], | Essential | | | | [place] [address] | [place] [address] | hypertension, | | | | [phone] | [phone] | benign; History of | | | | | | prostatectomy; | | | | | | Elevated glucose; | | | | | | Gout, unspecified | | | | | | cause, unspecified | | | | | | chronicity, | | | | | | unspecified site; | | | | | | Anemia, unspecified | | | | | | type | +--------+---------+ + + + Social History [...] + + + | Blood Pressure | - | - | | + + + + + | Pulse | 56 | 02/02/2017 7:06 AM | | | | | PDT | | + + + + + | Temperature | 36.3 C (97.4 F) | 02/02/2017 7:06 AM | | | | | PDT | | + + + + + | Respiratory Rate | 18 | 02/02/2017 7:06 AM | | | | | PDT | | + + + + + | Oxygen Saturation | 96% | 02/02/2017 7:06 AM | | | | | PDT | | + + + + + | Inhaled Oxygen | - | - | | | Concentration | | | | + + + + + | Weight | 119.7 kg (264 lb) | 02/02/2017 7:06 AM | | | | | PDT | | + + + + + | Height | 177.8 cm (5' 10") | 02/02/2017 7:06 AM | | | | | PDT | | + + + + + | Body Mass Index | 37.88 | 02/02/2017 7:06 AM | | | | | PDT | | + + + + + documented in this encounter Progress Notes Beltran Fields MD - 02/02/2017 7:15 AM PDTFormatting of this note might be different f rom the original. Subjective: Patient ID: Guy Thurman is a 71 y.o. male. HPI Right ear crackling on the right side. He believes this is from his CPAP for his JEAN. Anemia, Iron Deficiency, He was on iron for this, There is no blood in the urine or stoo l. post prostatectomy, This has persisted. Prostactectomy 11/02/14, Now with with most recent follow up Cystoscopy 05/05/15, He has h ad intermittent sporadic bleeding and she performed cauterization at that time. He is no lo nger getting blood in the urine. The cystoscopies seem to cause him to develop hiccups. He is continuing to follow with Dr Padron. HTN has been fine, checks it daily at home. and it runs in the 110's-130's/60-70's, no mar st pain, SOB, Ankle, pretibial edema R>L unchanged for years since 1992. This is again unch anged. Paroxysmal Afib, He will have an rare palp with overexertion. Rare episode, less than 6 episodes per year. Last several hours per episode, He is on ECASA 325mg po qd. Last ec ho 2007 with mild bitrial dilatation. Now on Flecainide 100mg po bid and metoprolol 50 am a nd 25 in the evening. per Cardiology Dr Niranjan Luevano MD in [place]. Hyperlipidemia, on lipitor, denies muscle aches or weakness. compliant with the medication s. This is unchanged. DM2, diet controlled, there is no diabetic symptoms other than numb feet for the last year. He declines medication of dietary consult, he sees an eye doctor once yearly. 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 He is . 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 He lives in [place], [place]. 9 living Grandchildren. Review of Systems Constitutional: no fever, No appetite change, no fatigue. HEENT: Neg ear pain, No nosebleeds,no rhinorrhea,no trouble swallowing and no sinus pressure. Eyes: Neg for pain and no visual disturbance. Respiratory: Neg for cough, no chest tightness, no shortness of breath no wheezing. Cardiovascular: Neg for chest pain, some palpitations and no leg swelling. Gastrointestinal: Neg for nausea,no vomiting,no diarrhea,no constipation no abdominal distention. No Belly pain, no black and no bloody stools, no excessive gas Genitourinary: Negative for urgency, no frequency, no decreased urine volume no difficulty urinating. No Bloody urine Musculoskeletal: Neg for myalgias, no back pain, no joint swelling and No ar thralgias. No joint pain Skin: Neg for color change,no [...] motion Skin, no gross lesions Assessment: 1. Other hyperlipidemia 2. Essential hypertension, benign 3. History of prostatectomy 4. Elevated glucose Plan: Medicare Annual Wellness Visit Guy Thurman is a 71 y.o. male who presents for a Medicare Wellness visit today: HEALTH RISK ASSESSMENT: The patient or their surrogate filled out the HRA and the responses were incorporated into the notes below. PHQ-2 DEPRESSION SCREENING: Over the last 2 weeks, have you been bothered by any of the fol lowing? Little interest/pleasure in doing things? : No Feeling down, depressed/hopeless?: No PHQ2 Screening: Negative Meaningful Use Calculation Row: 0 Patient Active Problem List Diagnosis Colon polyp Hyperlipidemia DEPRESSION Essential hypertension, benign INTERMITTENT VERTIGO ACUTE BRONCHITIS OTITIS MEDIA, SEROUS Hyperglycemia UNSPECIFIED VITAMIN D DEFICIENCY EUSTACHIAN TUBE DYSFUNCTION LUMBAR STRAIN, ACUTE OBSTRUCTIVE SLEEP APNEA ATRIAL FIBRILLATION WITH RAPID VENTRICULAR RESPONSE [facility] 02/06/08 - 03/08/08 PSA, INCREASED GROSS HEMATURIA BENIGN PROSTATIC HYPERTROPHY, WITH OBSTRUCTION Osteoarthritis BPH (benign prostatic hyperplasia) Paroxysmal a-fib IGT (impaired glucose tolerance) Preventative health care Status post prostatectomy Anemia Type 2 diabetes mellitus with hyperglycemia Past Medical History: Past Medical History Diagnosis Date Bening Prostatic Hyperplasia Hypertension Gout Gastroparesis GERD (gastroesophageal reflux disease) [place]is Ring Paroxysmal atrial fibrillation (HCC) Chronic low back pain/Intermittment Sciatica Hyperlipidemia Depression Osteoarthritis 09/08/2012 Colonic polyps Unspecified vitamin D deficiency 04/06/2011 Obstructive sleep apnea 01/19/2011 ATRIAL FIBRILLATION WITH RAPID VENTRICULAR RESPONSE 04/06/2012 Anemia Arthritis Environmental allergies Season hayfever Past Family History: Family History Problem Relation Age of Onset Prostate cancer Father age 77 Social History: Patient Status: [2]. Patient Currently working? yes Substance Use: Guy'vivienne Tobacco Use: History Smoking status Never Smoker Smokeless tobacco Never Used . Guy'vivienne alcohol use: History Alcohol Use Yes Comment: Rare . The Past Medical, Surgical, and Family History has been reviewed and updated at this visit. Today's Visit: Current Medications Current Outpatient Prescriptions Medication Sig Dispense Refill allopurinol (ZYLOPRIM) 300 mg tablet Take 1 tablet by mouth Daily. 90 tablet 0 atorvaSTATin (LIPITOR) 40 mg tablet Take 1 tablet by mouth Daily. 90 tablet 3 ferrous sulfate 325 (65 FE) MG EC tablet One po bid 180 tablet 1 flecainide (TAMBOCOR) 100 mg tablet Take 1 tablet by mouth 2 times daily. 180 tablet 3 fluticasone (FLONASE) 50 mcg/nasal spray 2 sprays each nostril daily 16 g 11 hydrochlorothiazide 50 mg tablet Take 1 tablet by mouth Daily. 90 tablet 3 HYDROcodone-acetaminophen (NORCO) 10-325 mg per tablet One po TID prn pain 50 tablet 0 HYDROcodone-acetaminophen (VICODIN) 5-500 mg per tablet Take 1 tablet by mouth every 4 hours as needed for Pain. 30 tablet 0 metoprolol tartrate (LOPRESSOR) 25 mg tablet TAKE ONE TABLET BY MOUTH AT DINNER TIME 90 tablet 3 metoprolol tartrate (LOPRESSOR) 50 mg tablet Take 1 tablet by mouth Daily. 90 tablet 3 multivitamin (THERAGRAN) per tablet one tablet by mouth daily niacin 500 MG CR capsule 4 capsules by mouth at bedtime Cavalier-3 Fatty Acids (EQL FISH OIL) 1000 MG CAPS two capsules by mouth daily Omeprazole Magnesium (PRILOSEC OTC PO) TBEC one tablet by mouth daily potassium chloride (K-DUR) 20 mEq ER tablet Take 1 tablet by mouth Daily. 90 tablet 3 sildenafil (VIAGRA) 100 MG tablet Take 100 mg by mouth Daily as needed. UNCODED MEDICATION Diagnosis: Obstructive Sleep Apnea ICD-9: 327.23 Length of Need: 99 Months 1 Device 0 No current facility-administered medications for this visit. Allergies Allergies Allergen Reactions Diltiazem Hcl Rash Current list of Providers and DME Suppliers Patient Care Team: Beltran Fields MD as PCP - General Current Medicare Suppliers: [employer] #[phone] - [place], [place] - [address] [place] [place] [id number] Immunizations Immunization History Administered Date(s) Administered INFLUENZA QUADR W/PRES (PED/ADOL/ADULT) MULTIDOSE 08/29/2014, 09/14/2016 INFLUENZA, W/Preservative 07/26/2013 Preventative Care and Screening (Attestation) The following health maintenance items are reviewed in [facility] and correct as of today: Health Maintenance Topic Date Due COLON CANCER SCREENING (COLONOSCOPY EVERY 10 YEARS 50-75) 1996 Microalbumin Screening 08/01/2015 Hemoglobin A1c Q3 Months 02/13/2016 Hepatitis C Screening 02/10/2018 (Originally 1945) DTaP/Tdap/Td IMM (1 - Tdap) 02/10/2018 (Originally 1965) Pneumo Imm PCV13/PPSV23 (65+) (1 of 2 - PCV13) 02/10/2018 (Originally 2011) Zostavax IMM (1) 02/10/2018 (Originally 2006) Influenza IMM (yearly) Completed REVIEW OF SYSTEMS: As above PHYSICAL EXAM: Vitals: Pulse 56 | Temp(Src) 36.3 C (97.4 F) (Temporal) | Resp 18 | Ht 1.778 m (5' 10" ) | Wt 119.75 kg (264 lb) | BMI 37.88 kg/m2 | SpO2 96% BMI: Estimated body mass index is 37.88 kg/(m^2) as calculated from the following: Height as of this encounter: 1.778 m (5' 10"). Weight as of this encounter: 119.75 kg (264 lb). Vision Screening and Audiometry Results: No exam data present ASSESSMENT AND PLANS: CHRONIC CONDITION REVIEW: completed RECOMMENDATIONS: The following recommendations were made as a result of this visit, and the HRA Is a Care Management Referral indicated for this patient no Diet: regular Exercise: USPSTF ex recs reviewed Immunizations: [facility] Screening Labs: Ordered Screening Exams: [facility] HEALTH RISK APPRAISAL (Attestation) Health Risk Assessment Form was reviewed with the patient and recommendations made to Guy Thurman based on his risk factors. PERSONALIZED PREVENTATIVE PLAN: (Attestation) A Personalized Care Plan for Mr. Thurman has been established and reviewed with citlalli and made available to the patient. documented in this encounter Plan of Treatment + +------+--------+ + + | Name | Type | Priori | Associated Diagnoses | Order Schedule | | | | ty | | | + +------+--------+ + + | CBC with | Lab | Routin | Essential | 1 Occurrences | | Differential | | e | hypertension, benign | starting 02/02/2017 | | | | | | until 02/02/2018 | + +------+--------+ + + | Comprehensive | Lab | Routin | Essential | 1 Occurrences | | Metabolic Panel | | e | hypertension, benign | starting 02/02/2017 | | | | | | until 02/02/2018 | + +------+--------+ + + | Iron and Transferrin | Lab | Routin | Anemia, | 1 Occurrences | | | | e | unspecified type | starting 02/02/2017 | | | | | | until 02/02/2018 | + +------+--------+ + + | Urinalysis with | Lab | Routin | Essential | 1 Occurrences | | Microscopic if | | e | hypertension, benign | starting 02/02/2017 | | Indicated | | | | until 02/02/2018 | + +------+--------+ + + | Lipid Panel | Lab | Routin | Other | 1 Occurrences | | | | e | hyperlipidemia | starting 02/02/2017 | | | | | | until 02/03/2018 | + +------+--------+ + + | PSA, Diagnostic | Lab | Routin | History of | 1 Occurrences | | | | e | prostatectomy | starting 02/02/2017 | | | | | | until 02/02/2018 | + +------+--------+ + + | Hemoglobin A1C | Lab | Routin | Elevated glucose | 1 Occurrences | | | | e | | starting 02/02/2017 | | | | | | until 02/02/2018 | + +------+--------+ + + documented as of this encounter Procedures + +--------+ + + + | Procedure Name | Priori | Date/Time | Associated Diagnosis | Comments | | | ty | | | | + +--------+ + + + | LABS - EXTERNAL SCAN | | 03/05/2017 | | Results for this | | | | 12:00 AM | | procedure are in the | | | | PDT | | results section. | + +--------+ + + + documented in this encounter Results LABS - EXTERNAL SCAN (03/05/2017 12:00 AM PDT) + + + | Narrative | Performed At | + + + | Ordered by an | | | unspecified provider. | | + + + documented in this encounter Visit Diagnoses + + | Diagnosis | + + | Other hyperlipidemia - Primary | + + | Essential hypertension, benign | + + | History of prostatectomy Other postprocedural status | + + | Elevated glucose Other abnormal glucose | + + | Gout, unspecified cause, unspecified chronicity, unspecified site | + + | Anemia, unspecified type | + + documented in this encounter
--- OUTSIDE RECORDS SUMMARY | ~2020-03-26 | XMS | Encounter Summary ---
Demographics + + + | Address | [address] | | | [place] [address] | + + + | Home Phone | | + + + | Preferred Language | Unknown | + + + | Marital Status | | + + + | Orthodoxy Affiliation | 1009 | + + + | Race | Unknown | + + + | Ethnic Group | Unknown | + + + Author + + + | Author | [facility] | | | and [place] | + + + | Organization | [facility] | | | [...] [place] | | | | | [address] | | + + + + + | Floyd Herndon | ECON | NA | | | | | NA, | | + + + + + Care Team Providers + +------+ + | Care Firebrick Layer Name | Role | Phone | + +------+ + | Beltran Fields MD | PCP | | + +------+ + Encounter Details +--------+ + + + + | Date | Type | Department | Care Team | Description | +--------+ + + + + | 12/09/ | Abstract | [facility] | Jordin Padron, | Preventative health | | 2016 | | [address] | MD [address] | care (Primary Dx) | | | | [place] | [place] | | | | | [address] | [address] | | | | | [phone] | | | +--------+ + + + [...] | EXTERNAL LAB: PSA | Routin | 12/06/2015 | | Results for this | | | e | 1:44 PM | | procedure are in the | | | | PST | | results section. | + +--------+ + + + | PSA, DIAGNOSTIC | Routin | 12/06/2015 | | Results for this | | | e | 1:44 PM | | procedure are in the | | | | PST | | results section. | + +--------+ + + + documented in this encounter Results PSA, Diagnostic (12/06/2015 1:44 PM PST) + + + + + + | Component | Value | Ref Range | Performed | Pathologist | | | | | At | Signature | + + + + + + | PSA, Free | 0.018 | ng/ml | [facility] | | | | [facility] | | | | [facility] | | | [facility] - | | | | | | LABORATORY | | + + + + + + | PSA, | Comment: Not performed | % | [facility] | | | Free/Total | | | [facility] | | | Ratio | | | MEDICAL | | | [...] ST. | [address] | [place] | [phone] | | [facility] | | [address], [facility] | | | - LABORATORY | | | | + + + + + External Lab: PSA (12/06/2015 1:44 PM PST) + +-------+ + + + | Component | Value | Ref Range | Performed | Pathologist | | | | | At | Signature | + +-------+ + + + | PSA, | 0.014 | 0 - 4 | EXTERNAL | | | External | | | LAB | | + +-------+ + + + + + | Resulting Agency Comment | + + | Drawn at [facility] in [place] | + + + +---------+ + + | Performing | Address | City/State/Zipcode | Phone Number | | Organization | | | | + +---------+ + + | EXTERNAL LAB | | | | + +---------+ + + documented in this encounter Visit Diagnoses + + | Diagnosis | + + | Preventative health care - Primary Routine general medical examination at a health | | care facility | + + documented in this encounter"
--- OUTSIDE RECORDS SUMMARY | ~2020-03-26 | XMS | Encounter Summary ---
Demographics + + + | Address | [address] | | | [place] [address] | + + + | Home Phone | | + + + | Preferred Language | Unknown | + + + | Marital Status | | + + + | Spiritism Affiliation | 1009 | + + + | Race | Unknown | + + + | Ethnic Group | Unknown | + + + Author + + + | Author | [facility] | | | and [place] | + + + | Organization | [facility] | | [...] [place] | | | | | [address] | | + + + + + | Floyd Herndon | ECON | NA | | | | | NA, | | + + + + + Care Team Providers + +------+ + | Care Professional Nursing Tutor Name | Role | Phone | + [...] + | 03/11/ | Telephone | [facility] | Beltran Fields, | Lab Order | | 2014 | | MEDICINE [address] | [address] | | | | | Street [address] | [address] [place] [place], | | | | | [place] [address] | [place] [address] | | | | | [phone] | [phone] | | | | | | | [...]
--- OUTSIDE RECORDS SUMMARY | ~2020-03-26 | XMS | Encounter Summary ---
Demographics + + + | Address | [address] | | | [place] [address] | + + + | Home Phone | | + + + | Preferred Language | Unknown | + + + | Marital Status | | + + + | Restorationism Affiliation | Unknown | + + + | Race | White | + + + | Ethnic Group | Not or | + + + Author + + + | Organization | Unknown | + + + | Address | Unknown | + + + | Phone | Unavailable | + + + Support + + + + + | Name | Relationship | Address | Phone | + + + + + | Yuliet Ma | ECON | [address] | | | | | [place] | | | | | [address] | | + + + + + Care Team Providers + +------+ + | Care Binder Sorter Name | Role | Phone | + +------+ + PCP | Unavailable | + +------+ + Encounter Details +--------+ + + + + | Date | Type | Department | Care Team | Description | +--------+ + + + + | 12/22/ | [facility] | | Letter, Clinic | Letters | | 2006 | scribed | | | | +--------+ + + [...] documented as of this encounter Progress Notes Interface, Turning Machine Operator Helper In - 12/24/2005 2:08 AM PST [id number] 12/22/2005 12/22/2005 [id number] KEVIN Pearson [facility] [address] [place] [address] or December 22, 2005 Shiva Hayward M.D. [address] [place] [address] RE: AWAIS BROWN MR #: [id number] Dear Dr. Hayward: Thank you for referring your patient, Awais Brown, to our clinic. As you well know, Mr. Brown is a 60-year-old male patient with history of bilateral carpal tunnel syndrome. The patient has had bilateral tunnel release several months ago. To be exact, his right carpal tunnel was decompressed in June 2005, and his left was decompressed in July 2005. His left hand had been without any problems since this surgery was done. Unfortunately, his right hand developed a progressive numbness that ultimately enveloped the entire right median nerve sensory distribution. Mr. Brown refers that his is somehow bothersome to him, although his usual right hand pain has been somehow treated by the surgery. He does refer that his night time numbness and pain has basically gone. What is bothering to Mr. Brown is that his numbness sensation was progressive and salient after the right carpal tunnel decompression was performed. It began at the right thumb tip and continued to spread until as already mentioned it covered the whole right median nerve distribution. Awais has a history of past illnesses that include high blood pressures since 2004, sinuventricular tachycardia, navicular fracture, spinal stenosis, and mild osteoarthritis. Currently, he is taking the following medications, allopurinol 300 mg a day, Prilosec 20 mg once a day, Celebrex 200 mg once a day, Toprol-XL 50 mg once a day, aspirin 81 mg once a day, Lipitor 40 mg once a day, glucosamine 1000 mg once a day, and vitamins with fish oil once a day. He denies having any drug allergies. 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 His hospitalizations have been once related to the mentioned surgeries. The patient denies smoking or drinking tea or coffee and rarely drinks wine. His family history is noncontributory. Upon examination, we find a 60-year-old male with an approximate weight of 270 pounds and a height of 5 feet 10 inches, blood pressure 128/80, pulse 82, and respiratory rate of 21. He seems to be in no distress, well groomed, and adequate for his age. There seems to be no gross limitation of range of motion in his neck or back. He is oriented, fluent, and with adequate affect. There is no gross evidence of any cardiopathies. His muscle strength is 5/5 at upper and lower extremities proximally and distally. It is worth to notice that there seemed to be no gross weakness in his right hand, intrinsic muscles, or thenar muscles. There was also no evidence of gross atrophy of his right hand. Upon examination of his sensory system, it was found that he had quite compelling decrease in sensation of his right thumb and his right first, second, lateral side of his third finger, and in the palmar side of his hand, and in the dorsal aspect of his hand. He had decreased sensation in the tip of his first, second, and third fingers and also in his thumb. There is no evidence of balance problems or truncal instability. His gait is adequate and normal and there were no pathologic reflexes. We had the opportunity of reviewing the conclusions of the EMG and nerve conduction velocities performed on Mr. Brown recently, and it is our belief that indeed there is evidence of decreased function distal to the right wrist area as you pointed out in your early conclusions. We talked to Mr. Brown extensively about our thoughts regarding his case. There is quite compelling evidence that points to the possibility of suboptimal decompression of the right carpal tunnel area and the only final recommendation that we can offer Mr. Brown is a revision of his right carpal tunnel decompression. It is quite reassuring on your suggestion of having an MRI of Mr. Brown's right wrist. We are really curious to see what will be the findings of such an imaging study. Probably, it will show an inflammatory process and/or evidence of ongoing median nerve compression. Bottom line is that we should perform a revision of his right carpal tunnel decompression as soon as possible to avoid any further damage to the median nerve and loss of function in his right hand. Thank you again Dr. Hayward for referring your patient to our clinic. It is our belief that the best course of action is to go ahead and do a surgical decompression of the right carpal tunnel area as soon as possible and to have a concomitant imaging study to backdrop our decision. All this was explained to Mr. Brown and he seemed to concur with our thoughts. In the case if there are any further recommendations, we will keep you abreast of any new developments. This case was seen and discussed with Dr. Brandie Guerrero. Sincerely, Jonathon Mills M.D. Brandie Guerrero M.D. / [id number] / [id number] / [id number] / documented i n this encounter Plan of Treatment Not on filedocumented as of this encounter Visit Diagnoses Not on filedocumented in this encounter"
--- OUTSIDE RECORDS SUMMARY | ~2020-03-26 | XMS | Encounter Summary ---
Demographics + + + | Address | [address] | | | [place] [address] | + + + | Home Phone | | + + + | Preferred Language | Unknown | + + + | Marital Status | | + + + | Episcopalian Affiliation | 1009 | + + + | Race | Unknown | + + + | Ethnic Group | Unknown | + + + Author + + + | Author | [facility] | | | and [place] | + + + | Organization | [facility] | | | and [place] | [...] [place] | | | | | [address] | | + + + + + | Floyd Herndon | ECON | NA | | | | | NA, | | + + + + + Care Team Providers + +------+ + | Care Janitor And Cleaner Name | Role | Phone | + +------+ + | Beltran Fields MD | PCP | | + +------+ + Reason for Visit + + + | Reason | Comments | + + + | Medication | | | Management | | + + + | Hyperlipidemia | | + + + | Hypertension | | + + + Encounter Details +--------+---------+ + + + | Date | Type | Department | Care Team | Description | +--------+---------+ + + + | 11/14/ | Office | [facility] | Beltran Fields, | Paroxysmal a-fib | | 2014 | Visit | MEDICINE [address] | [address] | (Primary Dx); Other | | | | Street [place] | [address] [place], | hyperlipidemia; | | | | [place] [address] | [place] [address] | Essential | | | | [phone] | [phone] | hypertension, | | | | | | benign; Anemia due | | | | | | to other cause | +--------+---------+ + + + Social History [...] + + + | Blood Pressure | 120/78 | 11/14/2015 11:07 AM | | | | | PST | | + + + + + | Pulse | 70 | 11/14/2015 11:07 AM | | | | | PST | | + + + + + | Temperature | 35.8 C (96.5 F) | 11/14/2015 11:07 AM | | | | | PST | | + + + + + | Respiratory Rate | 16 | 11/14/2015 11:07 AM | | | | | PST | | + + + + + | Oxygen Saturation | 98% | 11/14/2015 11:07 AM | | | | | PST | | + + + + + | Inhaled Oxygen | - | - | | | Concentration | | | | + + + + + | Weight | 118.8 kg (262 lb) | 11/14/2015 11:07 AM | | | | | PST | | + + + + + | Height | 177.8 cm (5' 10") | 11/14/2015 11:07 AM | | | | | PST | | + + + + + | Body Mass Index | 37.59 | 11/14/2015 11:07 AM | | | | | PST | | + + + + + documented in this encounter Progress Notes Beltran Fields MD - 11/14/2015 11:33 AM PSTFormatting of this note might be different f rom the original. Subjective: Patient ID: Guy Thurman is a 70 y.o. male. HPI Left arm with slight increased swelling of the forearm after pain developed on a long car r jen and a hematoma developed on the dorsal proximal forearm, The pain was in the ulnar groo ve. There has been no breast pain or breast nodule or other pain and he has not noticed any adenopathy in the axillary region and there have been no nerve changes. Anemia, post prostatectomy, This has persisted. Hypokalemia, [...] develop hiccups. He is continuing to follow w martir Padron. HTN has been fine, checks it [...] dilatation. Now on Flecainide 100mg po bid per Cardiology Taylor Luevano MD in [place]. He underwent a stressecho test this january that was normal. Hyperlipidemia, on lipitor, denies muscle aches or weakness. compliant with the medication s. This is unchanged. ED, this is complete after his prostactectomy. He has tried cialis and other medications t o no avail. 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 He is . 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 He lives in [place] [employer] [place] 9 living Grandchildren. Review of Systems [...] range of motion Skin, no gross lesions B formarms 12 inches plus or minus 1/4 inch Assessment: 1. Paroxysmal a-fib 2. Other hyperlipidemia 3. Essential hypertension, benign 4. Anemia due to other cause Plan: He looks and feels at baseline. He is due for labs. He continues to follow with Dr Padron . RTC 6 months. Otherwise continue current medical regimen. documented in this encounter Plan of Treatment Not on filedocumented as of this encounter Visit Diagnoses + + | Diagnosis | + + | Paroxysmal a-fib - Primary Atrial fibrillation | + + | Other hyperlipidemia | + + | Essential hypertension, benign | + + | Anemia due to other cause | + + documented in this encounter
--- OUTSIDE RECORDS SUMMARY | ~2020-03-26 | XMS | Encounter Summary ---
Demographics + + + | Address | [address] | | | [place] [address] | + + + | Home Phone | | + + + | Preferred Language | Unknown | + + + | Marital Status | | + + + | Restorationist Affiliation | 1009 | + + + | Race | Unknown | + + + | Ethnic Group | Unknown | + + + Author + + + | Author | [facility] | | | and [place] | + + + | Organization | [facility] | | | and [place] [...] [place] | | | | | [address] | | + + + + + | Floyd Herndon | ECON | NA | | | | | NA, | | + + + + + Care Team Providers + +------+ + | Care Police And Fire Dispatcher Name | Role | Phone | + [...] | | | | | [place] | [place] | | | | | [address] | [address] | | | | | [phone] | | | +--------+ + + + [...]
--- OUTSIDE RECORDS SUMMARY | ~2020-03-26 | XMS | Encounter Summary ---
Demographics + + + | Address | [address] | | | [place] [address] | + + + | Home Phone [...] + | Author | [facility] | | | and [place] | + + + | Organization | [facility] [...] [place] | | | | | [address] | | + + + + + | Floyd Herndon | ECON | NA | | | | | NA, | | + + + + + Care Team Providers + +------+ + | Care Assembler Tractor Name | Role | Phone | + [...] | 02/14/ | Refill | [facility] | Beltran Fields, | Medication Refill | | 2014 | | MEDICINE [facility] | [address] | | | | | [place] | [address] [place], | | | | | [place] [address] | [place] [address] | | | | | [phone] | [phone] | | | | | | | [...]
--- OUTSIDE RECORDS SUMMARY | ~2020-03-26 | XMS | Encounter Summary ---
Demographics + + + | Address | [address] | | | [place] [address] | + + + | Home Phone [...] Author | [facility] | | | and [place] | + + + | Organization | [facility] | | [...] [place] | | | | | [address] | | + + + + + | Floyd Herndon | ECON | NA | | | | | NA, | | + + + + + Care Team Providers + +------+ + | Care Heating And Cooling Systems Engineer Name | Role | Phone | [...] [facility] | [address] [place], | | | | | [place] [address] | [place] [address] | | | | | [phone] | [phone] | | | | | | | [...]
--- OUTSIDE RECORDS SUMMARY | ~2020-03-26 | XMS | Encounter Summary ---
Demographics + + + | Address | [address] | | | [place] [address] | + + + | Home Phone | | + + + | Preferred Language | Unknown | + + + | Marital Status | | + + + | Hindu Affiliation | 1009 | + + + | Race | Unknown | + + + | Ethnic Group | Unknown | + + + Author + + + | Author | [facility] | | | and [place] | + + + | Organization | [facility] | | | and [place] | [...] [place] | | | | | [address] | | + + + + + | Floyd Herndon | ECON | NA | | | | | NA, | | + + + + + Care Team Providers + +------+ + | Care Manager Auto Name | Role | Phone | + [...] Description | +--------+--------+ + + + | 02/06/ | Refill | [facility] | Beltran Fields, | Medication Refill | | 2018 | | MEDICINE [facility] | [address] | | | | | [place] | [address], | | | | | [place] [address] | [place] [address] | | | | | [phone] | [phone] | | | | | | | [...]
--- OUTSIDE RECORDS SUMMARY | ~2020-03-26 | XMS | Encounter Summary ---
Demographics + + + | Address | [address] | | | [place] [address] | + + + | Home Phone | | + + + | Preferred Language | Unknown | + + + | Marital Status | | + + + | Sikh Affiliation | 1009 | + + + | Race | Unknown | + + + | Ethnic Group | Unknown | + + + Author + + + | Author | [facility] | | | and [place] | + + + | Organization | [facility] | | | and [place] [...] [place] | | | | | [address] | | + + + + + | Floyd Herndon | ECON | NA | | | | | NA, | | + + + + + Care Team Providers + +------+ + | Care Budget Technician Name | Role | Phone | + +------+ + | Beltran Fields MD | PCP | | + +------+ + Encounter Details +--------+ + + + + | Date | Type | Department | Care Team | Description | +--------+ + + + + | 11/27/ | Orders Only | [facility] [place] [facility] | Beltran Fields, | Low iron (Primary | | 2016 | | [address]ICINE [address] | MD [address] | Dx) | | | | Street [place] | [address] [place], | | | | | [place] [address] | [place] [address] | | | | | [phone] | [phone] | | | | | | | [...] CBC with | Lab | Routin | Low iron | 1 Occurrences | | Differential | | e | | starting 11/27/2015 | | | | | | until 11/26/2016 | + +------+--------+ + + | Iron, Total | Lab | Routin | Low iron | 1 Occurrences | | | | e | | starting 11/27/2015 | | | | | | until 11/26/2016 | + +------+--------+ + + | Ferritin | Lab | Routin | Low iron | 1 Occurrences | | | | e | | starting 11/27/2015 | | | | | | until 11/26/2016 | + +------+--------+ + + documented as of this encounter Visit Diagnoses + + | Diagnosis | + + | Low iron - Primary Iron deficiency anemia, unspecified | + + documented in this encounter"
--- OUTSIDE RECORDS SUMMARY | ~2020-03-26 | XMS | Encounter Summary ---
Demographics + + + | Address | [address] | | | [place] [address] | + + + | Home Phone | | + + + | Preferred Language | Unknown | + + + | Marital Status | | + + + | Protestant Affiliation | 1009 | + + + | Race | Unknown | + + + | Ethnic Group | Unknown | + + + Author + + + | Author | [facility] | | | and [place] | + + + | Organization | [facility] | | | and [...] [place] | | | | | [address] | | + + + + + | Floyd Herndon | ECON | NA | | | | | NA, | | + + + + + Care Team Providers + +------+ + | Care Block Trimmer Name | Role | Phone | + [...] [facility] | [address] [place] [address] | | | | | [place] | [address] [place], | | | | | [place] [address] | [place] [address] | | | | | [phone] | [phone] | | | | | | | [...]
--- OUTSIDE RECORDS SUMMARY | ~2020-03-26 | XMS | Encounter Summary ---
Demographics + + + | Address | [address] | | | [place] [address] | + + + | Home Phone [...] | Author | [facility] | | | and [place] | + + + | Organization | [facility] | | | and [...] [place] | | | | | [address] | | + + + + + | Floyd Herndon | ECON | NA | | | | | NA, | | + + + + + Care Team Providers + +------+ + | Care Cable Supervisor Name | Role | Phone | + +------+ + | Beltran Fields MD | PCP | | + +------+ + Encounter Details +--------+ + + + + | Date | Type | Department | Care Team | Description | +--------+ + + + + | 04/25/ | Abstract | [facility] | Jordin Padron, | | | 2019 | | [address] | MD [address] | | | | | [place] | [place] | | | | | [address] | [address] | | | | | [phone] | | | +--------+ + + + [...] +--------+ + + + | EXTERNAL LAB: SHAY | Routin | 02/24/2019 | | Results for this | | | e | | | procedure are in the | | | | | | results section. | + +--------+ + + + | EXTERNAL LAB: | Routin | 02/24/2019 | | Results for this | | GLUCOSE | e | | | procedure are in the | | | | | | results section. | + +--------+ + + + | EXTERNAL LAB: PSA | Routin | 02/24/2019 | | Results for this | | | e | | | procedure are in the | | | | | | results section. | + +--------+ + + + | EXTERNAL LAB: ALT | Routin | 02/24/2019 | | Results for this | | | e | | | procedure are in the | | | | | | results section. | + +--------+ + + + | EXTERNAL LAB: AST | Routin | 02/24/2019 | | Results for this | | | e | | | procedure are in the | | | | | | results section. | + +--------+ + + + | EXTERNAL LAB: | Routin | 02/24/2019 | | Results for this | | ALKALINE PHOSPHATASE | e | | | procedure are in the | | | | | | results section. | + +--------+ + + + | EXTERNAL LAB: | Routin | 02/24/2019 | | Results for this | | BILIRUBIN, TOTAL | e | | | procedure are in the | | | | | | results section. | + +--------+ + + + | EXTERNAL LAB: | Routin | 02/24/2019 | | Results for this | | ALBUMIN | e | | | procedure are in the | | | | | | results section. | + +--------+ + + + | EXTERNAL LAB: | Routin | 02/24/2019 | | Results for this | | PROTEIN, TOTAL | e | | | procedure are in the | | | | | | results section. | + +--------+ + + + | EXTERNAL LAB: | Routin | 02/24/2019 | | Results for this | | CALCIUM | e | | | procedure are in the | | | | | | results section. | + +--------+ + + + | EXTERNAL LAB: CARBON | Routin | 02/24/2019 | | Results for this | | DIOXIDE | e | | | procedure are in the | | | | | | results section. | + +--------+ + + + | EXTERNAL LAB: | Routin | 02/24/2019 | | Results for this | | CHLORIDE | e | | | procedure are in the | | | | | | results section. | + +--------+ + + + | EXTERNAL LAB: | Routin | 02/24/2019 | | Results for this | | POTASSIUM | e | | | procedure are in the | | | | | | results section. | + +--------+ + + + | EXTERNAL LAB: SODIUM | Routin | 02/24/2019 | | Results for this | | | e | | | procedure are in the | | | | | | results section. | + +--------+ + + + | EXTERNAL LAB: | Routin | 02/24/2019 | | Results for this | | URINALYSIS | e | | | procedure are in the | | | | | | results section. | + +--------+ + + + | EXTERNAL LAB: CBC | Routin | 02/24/2019 | | Results for this | | | e | | | procedure are in the | | | | | | results section. | + +--------+ + + + | EXTERNAL LAB: | Routin | 02/24/2019 | | Results for this | | TRIGLYCERIDES | e | | | procedure are in the | | | | | | results section. | + +--------+ + + + | EXTERNAL LAB: | Routin | 02/24/2019 | | Results for this | | CHOLESTEROL, HDL | e | | | procedure are in the | | | | | | results section. | + +--------+ + + + | EXTERNAL LAB: | Routin | 02/24/2019 | | Results for this | | CHOLESTEROL, TOTAL | e | | | procedure are in the | | | | | | results section. | + +--------+ + + + | EXTERNAL LAB: | Routin | 02/24/2019 | | Results for this | | CHOLESTEROL, LDL | e | | | procedure are in the | | | | | | results section. | + +--------+ + + + | EXTERNAL LAB: EGFR | Routin | 02/24/2019 | | Results for this | | | e | | | procedure are in the | | | | | | results section. | + +--------+ + + + | EXTERNAL LAB: | Routin | 02/24/2019 | | Results for this | | CREATININE | e | | | procedure are in the | | | | | | results section. | + +--------+ + + + | MICROALBUMIN, URINE | Routin | 02/24/2019 | | Results for this | | | e | | | procedure are in the | | | | | | results section. | + +--------+ + + + | LIPID PANEL | Routin | 02/24/2019 | | Results for this | | | e | | | procedure are in the | | | | | | results section. | + +--------+ + + + | URINALYSIS, REFLEX | Routin | 02/24/2019 | | Results for this | | MICROSCOPIC AND/OR | e | | | procedure are in the | | CULTURE | | | | results section. | + +--------+ + + + | CBC WITH | Routin | 02/24/2019 | | Results for this | | DIFFERENTIAL | e | | | procedure are in the | | | | | | results section. | + +--------+ + + + | HEMOGLOBIN A1C | Routin | 02/24/2019 | | Results for this | | | e | | | procedure are in the | | | | | | results section. | + +--------+ + + + | COMPREHENSIVE | Routin | 02/24/2019 | | Results for this | | METABOLIC PANEL | e | | | procedure are in the | | | | | | results section. | + +--------+ + + + documented in this encounter Results Lipid Panel (02/24/2019) + +-------+ + + + | Component | Value | Ref Range | Performed | Pathologist | | | | | At | Signature | + +-------+ + + + | Chol/HDL | 4.7 | 0.0 - 5.0 Ratio | | | | Ratio | | | | | + +-------+ + + + | Non HDL | 94 | 0 - 130 mg/dL | | | | Chol. | | | | | | (LDL+VLDL) | | | | | + +-------+ + + + + + | Specimen | + + | Blood | + + Comprehensive Metabolic Panel (02/24/2019) + +-------+ + + + | Component | Value | Ref Range | Performed | Pathologist | | | | | At | Signature | + +-------+ + + + | Anion Gap | 11 | 7 - 21 mmol/L | | | + +-------+ + + + | Bun/Creatin | 14.6 | 6.0 - 28.6 | | | | ine | | Ratio | | | + +-------+ + + + | Albumin/Orly | 1.5 | 1.1 - 2.4 Ratio | | | | bulin Ratio | | | | | + +-------+ + + + | Globulin | 2.7 | 1.8 - 3.5 g/dl | | | + +-------+ + + + + + | Specimen | + + | Blood | + + CBC with Differential (02/24/2019) + +-------+ + + + | Component | Value | Ref Range | Performed | Pathologist | | | | | At | Signature | + +-------+ + + + | MCH | 29.0 | 27.0 - 33.0 pg | | | + +-------+ + + + | MCHC | 34.0 | 30.0 - 36.0 | | | | | | g/dL | | | + +-------+ + + + | % Basophils | 0.3 | 0.0 - 2.0 % | | | + +-------+ + + + + + | Specimen | + + | Blood | + + Urinalysis, Reflex Microscopic and/or Culture (02/24/2019) + + + + + + | Component | Value | Ref Range | Performed | Pathologist | | | | | At | Signature | + + + + + + | COLLECTION | Clean Catch | | | | | METHOD 1 | | | | | + + + + + + | Color | Yellow | | | | + + + + + + | Clarity | Clear | | | | + + + + + + | Bilirubin, | Negative | Negative | | | | Urine | | | | | + + + + + + | Urobilinoge | Normal | < 0.2 mg/dL, | | | | n, Urine | | 1.0 mg/dL, 4.0 | | | | | | mg/dL, Normal, | | | | | | 1.0 [...] Negative | Negative | | | | Urine | | | | | + + + + + + | Bacteria, | Negative | Negative /HPF | | | | Urine | | | | | + + + + + + | CASTS | Negative | | | | + + + + + + | CRYSTAL UA | Negative | | | | + + + + + + | Epithelial | Negative | | | | | Cells | | | | | + + + + + + | WBC, UA | 0 | 0 - 4 /hpf | | | + + + + + + + + | Specimen | + + | Urine | + + Hemoglobin A1C (02/24/2019) + + + + + + | Component | Value | Ref Range | Performed | Pathologist | | | | | At | Signature | + + + + + + | Hemoglobin | 7.0Comment: Estimated | % | EXTERNAL | | | A1c | Average Glucose 15 mg/dL | | LAB | | + + + + + + + + | Specimen | + + | Blood | + + + +---------+ + + | Performing | Address | City/State/Zipcode | Phone Number | | Organization | | | | + +---------+ + + | EXTERNAL LAB | | | | + +---------+ + + External Lab: SHAY (02/24/2019) + +-------+ + + + | Component | Value | Ref Range | Performed | Pathologist | | | | | At | Signature | + +-------+ + + + | BUN, | 14 | 6 - 23 | EXTERNAL | | | External | | | LAB | | + +-------+ + + + + +---------+ + + | Performing | Address | City/State/Zipcode | Phone Number | | Organization | | | | + +---------+ + + | EXTERNAL LAB | | | | + +---------+ + + External Lab: Glucose (02/24/2019) + +---------+ + + + | Component | Value | Ref Range | Performed | Pathologist | | | | | At | Signature | + +---------+ + + + | Glucose, | 133 (A) | 70 - 100 | EXTERNAL | | | External | | | LAB | | + +---------+ + + + + +---------+ + + | Performing | Address | City/State/Zipcode | Phone Number | | Organization | | | | + +---------+ + + | EXTERNAL LAB | | | | + +---------+ + + External Lab: PSA (02/24/2019) + +-------+ + + + | Component | Value | Ref Range | Performed | Pathologist | | | | | At | Signature | + +-------+ + + + | PSA, | 0.015 | 0 - 4 | EXTERNAL | | | External | | | LAB | | + +-------+ + + + + +---------+ + + | Performing | Address | City/State/Zipcode | Phone Number | | Organization | | | | + +---------+ + + | EXTERNAL LAB | | | | + +---------+ + + External Lab: ALT (02/24/2019) + +-------+ + + + | Component | Value | Ref Range | Performed | Pathologist | | | | | At | Signature | + +-------+ + + + | ALT, | 20 | 7 - 52 | EXTERNAL | | | External | | | LAB | | + +-------+ + + + + +---------+ + + | Performing | Address | City/State/Zipcode | Phone Number | | Organization | | | | + +---------+ + + | EXTERNAL LAB | | | | + +---------+ + + External Lab: AST (02/24/2019) + +-------+ + + + | Component | Value | Ref Range | Performed | Pathologist | | | | | At | Signature | + +-------+ + + + | AST, | 15 | 13 - 39 | EXTERNAL | | | External | | | LAB | | + +-------+ + + + + +---------+ + + | Performing | Address | City/State/Zipcode | Phone Number | | Organization | | | | + +---------+ + + | EXTERNAL LAB | | | | + +---------+ + + External Lab: Alkaline Phosphatase (02/24/2019) + +-------+ + + + | Component | Value | Ref Range | Performed | Pathologist | | | | | At | Signature | + +-------+ + + + | ALP, | 87 | 31 - 120 | EXTERNAL | | | External | | | LAB | | + +-------+ + + + + +---------+ + + | Performing | Address | City/State/Zipcode | Phone Number | | Organization | | | | + +---------+ + + | EXTERNAL LAB | | | | + +---------+ + + External Lab: Bilirubin, Total (02/24/2019) + +-------+ + + + | Component | Value | Ref Range | Performed | Pathologist | | | | | At | Signature | + +-------+ + + + | Bilirubin, | 1.1 | 0 - 1.2 | EXTERNAL | | | Total, | | | LAB | | | External | | | | | + +-------+ + + + + +---------+ + + | Performing | Address | City/State/Zipcode | Phone Number | | Organization | | | | + +---------+ + + | EXTERNAL LAB | | | | + +---------+ + + External Lab: Albumin (02/24/2019) + +-------+ + + + | Component | Value | Ref Range | Performed | Pathologist | | | | | At | Signature | + +-------+ + + + | Albumin, | 4.1 | 3.5 - 5 | EXTERNAL | | | External | | | LAB | | + +-------+ + + + + +---------+ + + | Performing | Address | City/State/Zipcode | Phone Number | | Organization | | | | + +---------+ + + | EXTERNAL LAB | | | | + +---------+ + + External Lab: Protein, Total (02/24/2019) + +-------+ + + + | Component | Value | Ref Range | Performed | Pathologist | | | | | At | Signature | + +-------+ + + + | Protein, | 6.8 | 6 - 8.3 | EXTERNAL | | | Total, | | | LAB | | | External | | | | | + +-------+ + + + + +---------+ + + | Performing | Address | City/State/Zipcode | Phone Number | | Organization | | | | + +---------+ + + | EXTERNAL LAB | | | | + +---------+ + + External Lab: Calcium (02/24/2019) + +-------+ + + + | Component | Value | Ref Range | Performed | Pathologist | | | | | At | Signature | + +-------+ + + + | Calcium, | 9.2 | 8.5 - 10.3 | EXTERNAL | | | External | | | LAB | | + +-------+ + + + + +---------+ + + | Performing | Address | City/State/Zipcode | Phone Number | | Organization | | | | + +---------+ + + | EXTERNAL LAB | | | | + +---------+ + + External Lab: Carbon Dioxide (02/24/2019) + +-------+ + + + | Component | Value | Ref Range | Performed | Pathologist | | | | | At | Signature | + +-------+ + + + | Carbon | 31 | 19 - 31 | EXTERNAL | | | Dioxide, | | | LAB | | | External | | | | | + +-------+ + + + + +---------+ + + | Performing | Address | City/State/Zipcode | Phone Number | | Organization | | | | + +---------+ + + | EXTERNAL LAB | | | | + +---------+ + + External Lab: Chloride (02/24/2019) + +-------+ + + + | Component | Value | Ref Range | Performed | Pathologist | | | | | At | Signature | + +-------+ + + + | Chloride, | 99 | 95 - 112 | EXTERNAL | | | External | | | LAB | | + +-------+ + + + + +---------+ + + | Performing | Address | City/State/Zipcode | Phone Number | | Organization | | | | + +---------+ + + | EXTERNAL LAB | | | | + +---------+ + + External Lab: Potassium (02/24/2019) + +-------+ + + + | Component | Value | Ref Range | Performed | Pathologist | | | | | At | Signature | + +-------+ + + + | Potassium, | 3.8 | 3.6 - 5.1 | EXTERNAL | | | External | | | LAB | | + +-------+ + + + + +---------+ + + | Performing | Address | City/State/Zipcode | Phone Number | | Organization | | | | + +---------+ + + | EXTERNAL LAB | | | | + +---------+ + + External Lab: Sodium (02/24/2019) + +-------+ + + + | Component | Value | Ref Range | Performed | Pathologist | | | | | At | Signature | + +-------+ + + + | Sodium, | 137 | 132 - 143 | EXTERNAL | | | External | | | LAB | | + +-------+ + + + + +---------+ + + | Performing | Address | City/State/Zipcode | Phone Number | | Organization | | | | + +---------+ + + | EXTERNAL LAB | | | | + +---------+ + + External Lab: Urinalysis (02/24/2019) + + + + + + | Component | Value | Ref Range | Performed | Pathologist | | | | | At | Signature | + + + + + + | UA Blood, | Negative | | EXTERNAL | | | External | | | LAB | | + + + + + + | UA Glucose, | Normal | | EXTERNAL | | | External | | | LAB | | + + + + + + | UA Ketones, | Negative | | EXTERNAL | | | External | | | LAB | | + + + + + + | UA Ph, | 7 | 5 - 9 | EXTERNAL | | | External | | | LAB | | + + + + + + | UA | Negative | | EXTERNAL | | | Proteins, | | | LAB | | | External | | | | | + + + + + + | UA RBC, | 0 | 0 - 4 | EXTERNAL | | | External | | | LAB | | + + + + + + | UA Specific | 1.014 | 1.005 - 1.03 | EXTERNAL | | | [place], | | | LAB | | | External | | | | | + + + + + + | UA | Negative | | EXTERNAL | | | Leukocyte | | | LAB | | | Esterase, | | | | | | External | | | | | + + + + + + + +---------+ + + | Performing | Address | City/State/Zipcode | Phone Number | | Organization | | | | + +---------+ + + | EXTERNAL LAB | | | | + +---------+ + + External Lab: CBC (02/24/2019) + +-------+ + + + | Component | Value | Ref Range | Performed | Pathologist | | | | | At | Signature | + +-------+ + + + | WBC, | 6.8 | 4.5 - 11 | EXTERNAL | | | External | | | LAB | | + +-------+ + + + | HGB, | 15.1 | 13.5 - 18 | EXTERNAL | | | External | | | LAB | | + +-------+ + + + | HCT, | 44.6 | 41 - 50 | EXTERNAL | | | External | | | LAB | | + +-------+ + + + | PLT, | 279 | 140 - 440 | EXTERNAL | | | External | | | LAB | | + +-------+ + + + | Neutrophils | 55.9 | 39 - 80 | EXTERNAL | | | %, | | | LAB | | | External | | | | | + +-------+ + + + | Lymphocytes | 33.3 | 24 - 44 | EXTERNAL | | | %, | | | LAB | | | External | | | | | + +-------+ + + + | Monocytes | 9.0 | 0 - 12 | EXTERNAL | | | %, External | | | LAB | | + +-------+ + + + | Eosinophils | 1.5 | 0 - 6 | EXTERNAL | | | %, | | | LAB | | | External | | | | | + +-------+ + + + | RBC, | 5.12 | 4.3 - 5.7 | EXTERNAL | | | External | | | LAB | | + +-------+ + + + | MCV, | 87 | 81 - 99 | EXTERNAL | | | External | | | LAB | | + +-------+ + + + | RDW, | 14.1 | 10.5 - 15 | EXTERNAL | | | External | | | LAB | | + +-------+ + + + + +---------+ + + | Performing | Address | City/State/Zipcode | Phone Number | | Organization | | | | + +---------+ + + | EXTERNAL LAB | | | | + +---------+ + + External Lab: Triglycerides (02/24/2019) + +---------+ + + + | Component | Value | Ref Range | Performed | Pathologist | | | | | At | Signature | + +---------+ + + + | Triglycerid | 206 (A) | 30 - 150 | EXTERNAL | | | es, | | | LAB | | | External | | | | | + +---------+ + + + + + | Specimen | + + | Blood | + + + +---------+ + + | Performing | Address | City/State/Zipcode | Phone Number | | Organization | | | | + +---------+ + + | EXTERNAL LAB | | | | + +---------+ + + External Lab: Cholesterol, HDL (02/24/2019) + + + + + + | Component | Value | Ref Range | Performed | Pathologist | | | | | At | Signature | + + + + + + | HDL | 25.3 (A) | 40 - 99,999 | EXTERNAL | | | Cholesterol | | mg/dl | LAB | | | , External | | | | | + + + + + + + + | Specimen | + + | Blood | + + + +---------+ + + | Performing | Address | City/State/Zipcode | Phone Number | | Organization | | | | + +---------+ + + | EXTERNAL LAB | | | | + +---------+ + + External Lab: Cholesterol, Total (02/24/2019) + +-------+ + + + | Component | Value | Ref Range | Performed | Pathologist | | | | | At | Signature | + +-------+ + + + | Cholesterol | 119 | 0 - 200 mg/dl | EXTERNAL | | | , Total, | | | LAB | | | External | | | | | + +-------+ + + + + + | Specimen | + + | Blood | + + + +---------+ + + | Performing | Address | City/State/Zipcode | Phone Number | | Organization | | | | + +---------+ + + | EXTERNAL LAB | | | | + +---------+ + + External Lab: Cholesterol, LDL (02/24/2019) + +-------+ + + + | Component | Value | Ref Range | Performed | Pathologist | | | | | At | Signature | + +-------+ + + + | LDL | 53 | 0 - 100 | EXTERNAL | | | Cholesterol | | | LAB | | | , Direct, | | | | | | External | | | | | + +-------+ + + + + + | Specimen | + + | Blood | + + + +---------+ + + | Performing | Address | City/State/Zipcode | Phone Number | | Organization | | | | + +---------+ + + | EXTERNAL LAB | | | | + +---------+ + + External Lab: eGFR (02/24/2019) + +-------+ + + + | Component | Value | Ref Range | Performed | Pathologist | | | | | At | Signature | + +-------+ + + + | eGFR, | 77 | | EXTERNAL | | | External | | | LAB | | + +-------+ + + + + + | Specimen | + + | Blood | + + + +---------+ + + | Performing | Address | City/State/Zipcode | Phone Number | | Organization | | | | + +---------+ + + | EXTERNAL LAB | | | | + +---------+ + + External Lab: Creatinine (02/24/2019) + +-------+ + + + | Component | Value | Ref Range | Performed | Pathologist | | | | | At | Signature | + +-------+ + + + | Creatinine, | 0.96 | 0.7 - 100 | EXTERNAL | | | External | | | LAB | | + +-------+ + + + + + | Specimen | + + | Blood | + + + +---------+ + + | Performing | Address | City/State/Zipcode | Phone Number | | Organization | | | | + +---------+ + + | EXTERNAL LAB | | | | + +---------+ + + Microalbumin, Urine (02/24/2019) + +-------+ + + + | Component | Value | Ref Range | Performed | Pathologist | | | | | At | Signature | + +-------+ + + + | Microalbumi | <0.7 | 0.0 - 2.0 mg/dL | | | | n, mg/day | | | | | + +-------+ + + + | Creatinine, | 99.49 | mg/dL | | | | Urine | | | | | + +-------+ + + + + + | Specimen | + + | Urine | + + documented in this encounter Visit Diagnoses Not on filedocumented in this encounter"
--- OUTSIDE RECORDS SUMMARY | ~2020-03-26 | XMS | Encounter Summary ---
Demographics + + + | Address | [address] | | | [place] [address] | + + + | Home Phone [...] | Author | [facility] | | | and [place] | + + + | Organization | [facility] | | [...] [place] | | | | | [address] | | + + + + + | Floyd Herndon | ECON | NA | | | | | NA, | | + + + + + Care Team Providers + +------+ + | Care Immunochemist Name | Role | Phone | + [...] Description | +--------+--------+ + + + | 08/27/ | Refill | [facility] | Beltran Fields, | Medication Refill | | 2019 | | MEDICINE [place] | [address] | | | | | [address] | [address] [place], | | | | | [place] | [place] [address] | | | | | [address] | [phone] | | | | | [phone] | | | +--------+--------+ + + + [...]
--- OUTSIDE RECORDS SUMMARY | ~2020-03-26 | XMS | Encounter Summary ---
Demographics + + + | Address | [address] | | | [place] [address] | + + + | Home Phone | | + + + | Preferred Language | Unknown | + + + | Marital Status | | + + + | Restoration Affiliation | 1009 | + + + | Race | Unknown | + + + | Ethnic Group | Unknown | + + + Author + + + | Author | [facility] | | | and [place] | + + + | Organization | [facility] | | | and [place] [...] [place] | | | | | [address] | | + + + + + | Floyd Herndon | ECON | NA | | | | | NA, | | + + + + + Care Team Providers + +------+ + | Care Engineer Remote Control Diesel Name | Role | Phone | + [...] | 02/06/ | Refill | [facility] | Beltran Fields, | Medication Refill | | 2018 | | MEDICINE [facility] | [address] | | | | | [place] | [address] [place], | | | | | [place] [address] | [place] [address] | | | | | [phone] | [phone] | | | | | | | [...]
--- OUTSIDE RECORDS SUMMARY | ~2020-03-26 | XMS | Encounter Summary ---
Demographics + + + | Address | [address] | | | [place] [address] | + + + | Home Phone | | + + + | Preferred Language | Unknown | + + + | Marital Status | | + + + | Anabaptism Affiliation | 1009 | + + + | Race | Unknown | + + + | Ethnic Group | Unknown | + + + Author + + + | Author | [facility] | | | and [place] | + + + | Organization | [facility] | | | and [...] [place] | | | | | [address] | | + + + + + | Floyd Herndon | ECON | NA | | | | | NA, | | + + + + + Care Team Providers + +------+ + | Care Forest Ecologist Name | Role | Phone | + [...] + + | 08/14/ | Refill | [facility] | Beltran Fields, | Medication Refill | | 2013 | | [facility] | [address] | | | | | [address] | [address] [place], | | | | | [place], [place] | [place] [address] | | | | | [address] | [phone] | | | | | [phone] | | | +--------+--------+ + + + [...]
--- OUTSIDE RECORDS SUMMARY | ~2020-03-26 | XMS | Encounter Summary ---
Demographics + + + | Address | [address] | | | [place] [address] | + + + | Home Phone | | + + + | Preferred Language | Unknown | + + + | Marital Status | | + + + | Congregational Affiliation | 1009 | + + + | Race | Unknown | + + + | Ethnic Group | Unknown | + + + Author + + + | Author | [facility] | | | and [place] | + + + | Organization | [facility] | | | and [place] [...] [place] | | | | | [address] | | + + + + + | Floyd Herndon | ECON | NA | | | | | NA, | | + + + + + Care Team Providers + +------+ + | Care Television Analyzer Name | Role | Phone | + [...] | 02/08/ | Refill | [facility] | Beltran Fields, | Medication Refill | | 2013 | | MEDICINE [place] | [address] | | | | | [address] | [address] [place], | | | | | [place] | [place] [address] | | | | | [address] | [phone] | | | | | [phone] | | | +--------+--------+ + + + [...]
--- OUTSIDE RECORDS SUMMARY | ~2020-03-26 | XMS | Encounter Summary ---
Demographics + + + | Address | [address] | | | [place] [address] | + + + | Home Phone | | + + + | Preferred Language | Unknown | + + + | Marital Status | | + + + | Gnosticism Affiliation | 1009 | + + + | Race | Unknown | + + + | Ethnic Group | Unknown | + + + Author + + + | Author | [facility] | | | and [place] | + + + | Organization | [facility] | | [...] [place] | | | | | [address] | | + + + + + | Floyd Herndon | ECON | NA | | | | | NA, | | + + + + + Care Team Providers + +------+ + | Care Gauge Maker Apprentice Name | Role | Phone | + +------+ + | Beltran Fields MD | PCP | | + +------+ + Reason for Visit + + + | Reason | Comments | + + + | Follow-up | | + + + Encounter Details +--------+ + + + + | Date | Type | Department | Care Team | Description | +--------+ + + + + | 03/25/ | Telephone | [facility] | Geronimo Iglesias [place] | Follow-up | | 2017 | | SLEEP DISORDER [address] | [address] | | | | | [address] | [place] | | | | | [place] [address] | [address] | | | | | [phone] | | | +--------+ + + + [...]
--- OUTSIDE RECORDS SUMMARY | ~2020-03-26 | XMS | Encounter Summary ---
Demographics + + + | Address | [address] | | | [place] [address] | + + + | Home Phone | | + + + | Preferred Language | Unknown | + + + | Marital Status | | + + + | Yarsanism Affiliation | 1009 | + + + | Race | Unknown | + + + | Ethnic Group | Unknown | + + + Author + + + | Author | [facility] | | | and [place] | + + + | Organization | [facility] | | | and [place] [...] [place] | | | | | [address] | | + + + + + | Floyd Herndon | ECON | NA | | | | | NA, | | + + + + + Care Team Providers + +------+ + | Care Merchandising Team Lead Name | Role | Phone | + [...] Description | +--------+--------+ + + + | 02/28/ | Refill | [facility] [place] [facility] | Beltran Fields, | Medication Refill | | 2017 | | MEDICINE [facility] All | [address] | | | | | [place] | [address] [place], | | | | | [place] [address] | [place] [address] | | | | | [phone] | [phone] | | | | | | | [...]
--- OUTSIDE RECORDS SUMMARY | ~2020-03-26 | XMS | Encounter Summary ---
Demographics + + + | Address | [address] | | | [place] [address] | + + + | Home Phone [...] | [facility] | | | and [place] | + + + | Organization | [facility] | | | and [place] [...] [place] | | | | | [address] | | + + + + + | Floyd Herndon | ECON | NA | | | | | NA, | | + + + + + Care Team Providers + +------+ + | Care Planer Offbearer Name | Role | Phone | + [...] + + | 11/13/ | Office | [facility] | Jordin Padron, | PSA, INCREASED | | 2012 | Visit | [address] | MD [address] | (Primary Dx); | | | | [place] | [place] | Microhematuria; BPH | | | | [address] | [address] | (benign prostatic | | | | [phone] | | hyperplasia); Other | | | [...] + + documented in this encounter Progress Jordin Torres MD - 11/13/2013 9:55 AM PSTFormatting of [...] capsule 4 capsules by mouth at bedtime [place]-3 Fatty Acids (EQL FISH OIL) 1000 MG [...] Jordin Abebe MD - 11/13/2013 12:00 AM [facility] [address] [place] [address] FAX: [phone] Thurman is a 68-year-old [...] pel vis with contrast on 09/01/2010 at [facility] demonstrated normal yue earing kidneys, [...] over 50% of this time spent in [facility] regarding his abnormal PSA and marked prostatic [...] biopsy performed. If his PSA return to [facility], continued observation may be elected. Guy will [...] any problems whatsoever. Jordin Padron MD / [facility] JOB #: [id number] signed by Jordin Padron MD at 11/14/2013 7:23 PM PSTdocumen jeramy in this encounter Plan of Treatment Not [...] - 1.030 | [facility] | | | [place], | | | [facility] | | [...] + | [facility] | [address] | [place], [place] | [phone] | | [facility] | | [address] | | | - LABORATORY | | | | + + + + + | [facility] | [address] | [place], [place] | | | [facility] | | [id number] | | | - LABORATORY | [...] | 1.005 | | | | | [place], | | | | | | [facility], [...]
--- OUTSIDE RECORDS SUMMARY | ~2020-03-26 | XMS | Encounter Summary ---
Demographics + + + | Address | [address] | | | [place] [address] | + + + | Home Phone | | + + + | Preferred Language | Unknown | + + + | Marital Status | | + + + | Jain Affiliation | Unknown | + + + | Race | White | + + + | Ethnic Group | Not or | + + + Author + + + | Author | [facility] | + + + | Organization | [facility] | + + + | Address | Unknown | + + + | Phone | Unavailable | + + + Support + + + + + | Name | Relationship | Address | Phone | + + + + + | Yuliet Ma | ECON | [address] | | | | | [place] | | | | | [address] | | + + + + + Care Team Providers + +------+ + | Care Visitor Services Technician Name | Role | Phone | [...] [id number] | | | | | | [place], [place] | | | | | | [address] | | | | | | [phone] | | | +--------+ + + + [...]
--- OUTSIDE RECORDS SUMMARY | ~2020-03-26 | XMS | Encounter Summary ---
Demographics + + + | Address | [address] | | | [place] [address] | + + + | Home Phone | | + + + | Preferred Language | Unknown | + + + | Marital Status | | + + + | Cheondoism Affiliation | 1009 | + + + | Race | Unknown | + + + | Ethnic Group | Unknown | + + + Author + + + | Author | [facility] | | | and [place] | + + + | Organization | [facility] | | | and [...] [place] | | | | | [address] | | + + + + + [...] Refill | | 2020 | | MEDICINE [place] | [address] | | | | | [address] | [address] [place], | | | | | [place] | [place] [address] | | | | | [address] | [phone] | | | | | [phone] | | | +--------+--------+ + + + [...]
--- OUTSIDE RECORDS SUMMARY | ~2020-03-26 | XMS | Encounter Summary ---
Demographics + + + | Address | [address] | | | [place] [address] | + + + | Home Phone | | + + + | Preferred Language | Unknown | + + + | Marital Status | | + + + | Latter Day Affiliation | 1009 | + + + | Race | Unknown | + + + | Ethnic Group | Unknown | + + + Author + + + | Author | [facility] | | | and [place] | + + + | Organization | [facility] | | | and [place] [...] [place] | | | | | [address] | | + + + + + | Floyd Herndon | ECON | NA | | | | | NA, | | + + + + + Care Team Providers + +------+ + | Care Training Associate Name | Role | Phone | + +------+ + | Beltran Fields MD | PCP | | + +------+ + Reason for Visit + + + | Reason | Comments | + + + | Hypertension | | + + + | Hyperlipidemia | | + + + Encounter Details +--------+---------+ + + + | Date | Type | Department | Care Team | Description | +--------+---------+ + + + | 01/28/ | Office | [facility] | Beltran Fields, | Other iron | | 2016 | Visit | MEDICINE [address] | [address] | deficiency anemia | | | | [facility] | [address] [place], | (Primary Dx); | | | | [place] [address] | [place] [address] | Essential | | | | [phone] | [phone] | hypertension, | | | | | | benign; Paroxysmal | | | | | | a-fib; Other | | | | | | hyperlipidemia; Type | | | | | | 2 diabetes mellitus | | | | | | with hyperglycemia | | | | | | (HCC); Other | | | | | | allergic rhinitis | +--------+---------+ + + + Social History [...] + + + | Blood Pressure | 138/62 | 01/29/2016 1:35 PM | | | | | PDT | | + + + + + | Pulse | 85 | 01/29/2016 1:35 PM | | | | | PDT | | + + + + + | Temperature | 36.2 C (97.2 F) | 01/29/2016 1:35 PM | | | | | PDT | | + + + + + | Respiratory Rate | 16 | 01/29/2016 1:35 PM | | | | | PDT | | + + + + + | Oxygen Saturation | 95% | 01/29/2016 1:35 PM | | | | | PDT | | + + + + + | Inhaled Oxygen | - | - | | | Concentration | | | | + + + + + | Weight | 122 kg (269 lb) | 01/29/2016 1:35 PM | | | | | PDT | | + + + + + | Height | 177.8 cm (5' 10") | 01/29/2016 1:35 PM | | | | | PDT | | + + + + + | Body Mass Index | 38.6 | 01/29/2016 1:35 PM | | | | | PDT | | + + + + + documented in this encounter Progress Notes Beltran Fields MD - 01/29/2016 1:42 PM PDTFormatting of this note might be different f rom the original. Subjective: Patient ID: Guy Thurman is a 70 y.o. male. HPI Anemia, Iron Deficiency, He is on iron for this, There is no blood in the urine or stool. post prostatectomy, This has persisted. Prostactectomy 11/02/14, [...] bid per Cardiology Taylor Luevano MD in [place]. He underwent a stressecho test this january that was normal. Hyperlipidemia, on lipitor, denies muscle aches or weakness. compliant with the medication s. This is unchanged. ED, this is complete after his prostactectomy. He has tried cialis and other medications t o no avail. DM2, there is no diabetic symptoms other than numb feet for the last year. 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 He lives in [place], [place]. 9 living Grandchildren. Review of Systems [...] Skin, no gross lesions Assessment: 1. Other iron deficiency anemia 2. Essential hypertension, benign 3. Paroxysmal a-fib 4. Other hyperlipidemia 5. Type 2 diabetes mellitus with hyperglycemia (HCC) Plan: He wants to avoid a medication for his diabetes now. He will watch his carbohydrate intake . RTC 3 months, Otherwise continue current medical regimen. His anemia is actually impro lupis. documented in this encounter Plan of Treatment Not on filedocumented as of this encounter Visit Diagnoses + + | Diagnosis | + + | Other iron deficiency anemia - Primary | + + | Essential hypertension, benign | + + | Paroxysmal a-fib Atrial fibrillation | + + | Other hyperlipidemia | + + | Type 2 diabetes mellitus with hyperglycemia (HCC) Type II or unspecified type | | diabetes mellitus without mention of complication, not stated as uncontrolled | + + | Other allergic rhinitis | + + documented in this encounter
--- OUTSIDE RECORDS SUMMARY | ~2020-03-26 | XMS | Encounter Summary ---
Demographics + + + | Address | [address] | | | [place] [address] | + + + | Home Phone | | + + + | Preferred Language | Unknown | + + + | Marital Status | | + + + | Pentecostal Affiliation | 1009 | + + + | Race | Unknown | + + + | Ethnic Group | Unknown | + + + Author + + + | Author | [facility] | | | and [place] | + + + | Organization | [facility] | | | and [...] [place] | | | | | [address] | | + + + + + | Floyd Herndon | ECON | NA | | | | | NA, | | + + + + + Care Team Providers + +------+ + | Care Merchandise Adjustment Clerk Name | Role | Phone | + +------+ + | Beltran Fields MD | PCP | | + +------+ + Reason for Visit + + + | Reason | Comments | + + + | Atrial Fibrillation | | + + + Encounter Details +--------+ + + + + | Date | Type | Department | Care Team | Description | +--------+ + + + + | 08/18/ | Telephone | [facility] [place] | Teresa Blum, | Atrial Fibrillation | | 2011 | | CARDIOLOGY [address] | RN | | | | | [place], | | | | | | [place] [address] | | | | | | [phone] | | | +--------+ + + + [...]
--- OUTSIDE RECORDS SUMMARY | ~2020-03-26 | XMS | Encounter Summary ---
Demographics + + + | Address | [address] | | | [place] [address] | + + + | Home Phone [...] | Author | [facility] | | | and [place] | + + + | Organization | [facility] [...] [place] | | | | | [address] | | + + + + + | Floyd Herndon | ECON | NA | | | | | NA, | | + + + + + Care Team Providers + +------+ + | Care Straddle Carrier Operator Name | Role | Phone | [...] Description | +--------+--------+ + + + | 06/09/ | Refill | [facility] [place] [facility] | Beltran Fields, | Medication Refill | | 2015 | | MEDICINE [facility] All | [address] [place] [address] | | | | | [facility] | [address] [place], | | | | | [place] [address] | [place] [address] | | | | | [phone] | [phone] | | | | | | | [...]
--- OUTSIDE RECORDS SUMMARY | ~2020-03-26 | XMS | Encounter Summary ---
Demographics + + + | Address | [address] | | | [place] [address] | + + + | Home Phone | | + + + | Preferred Language | Unknown | + + + | Marital Status | | + + + | Sikhism Affiliation | 1009 | + + + | Race | Unknown | + + + | Ethnic Group | Unknown | + + + Author + + + | Author | [facility] | | | and [place] | + + + | Organization | [facility] | | | and [...] [place] | | | | | [address] | | + + + + + | Floyd Herndon | ECON | NA | | | | | NA, | | + + + + + Care Team Providers + +------+ + | Care Corporate Accountant Name | Role | Phone | + [...] Description | +--------+--------+ + + + | 08/31/ | Refill | [facility] [place] [facility] | Beltran Fields, | Medication Refill | | 2017 | | MEDICINE [facility] All | [address] | | | | | [place] | [address], | | | | | [place] [address] | [place] [address] | | | | | [phone] | [phone] | | | | | | | [...]
--- OUTSIDE RECORDS SUMMARY | ~2020-03-26 | XMS | Encounter Summary ---
Demographics + + + | Address | [address] | | | [place] [address] | + + + | Home Phone | | + + + | Preferred Language | Unknown | + + + | Marital Status | | + + + | Moravian Affiliation | 1009 | + + + | Race | Unknown | + + + | Ethnic Group | Unknown | + + + Author + + + | Author | [facility] | | | and [place] | + + + | Organization | [facility] | [...] [place] | | | | | [address] | | + + + + + | Floyd Herndon | ECON | NA | | | | | NA, | | + + + + + Care Team Providers + +------+ + | Care Shellfish Grower Name | Role | Phone | + [...] Description | +--------+--------+ + + + | 12/02/ | Refill | [facility] [place] [facility] | Beltran Fields, | Medication Refill | | 2016 | | MEDICINE [facility] All | [address] [place] [address] | | | | | [place] [address] | [address], | | | | | [place] [address] | [place] [address] | | | | | [phone] | [phone] | | | | | | | [...]
--- OUTSIDE RECORDS SUMMARY | ~2020-03-26 | XMS | Encounter Summary ---
Demographics + + + | Address | [address] | | | [place] [address] | + + + | Home Phone [...] | Author | [facility] | | | and [place] | + + + | Organization | [facility] | | | and [place] | [...] [place] | | | | | [address] | | + + + + + | Floyd Herndon | ECON | NA | | | | | NA, | | + + + + + Care Team Providers + +------+ + | Care Vinyl Hanger Name | Role | Phone | + +------+ + | Beltran Fields MD | PCP | | + +------+ + Reason for Visit + + + | Reason | Comments | + + + | Annual Exam | | + + + Encounter Details +--------+---------+ + + + | Date | Type | Department | Care Team | Description | +--------+---------+ + + + | 02/22/ | Office | [facility] | Beltran Fields, | Type 2 diabetes | | 2019 | Visit | MEDICINE [facility] | [address] | mellitus with | | | | [address] | [address] [place], | hyperglycemia, | | | | [place] | [place] [address] | without long-term | | | | [address] | [phone] | current use of | | | | [phone] | | insulin (HCC) | | | | | | (Primary Dx); | | | | | | Paroxysmal A-fib | | | | | | (HCC); Essential | | | | | | hypertension, | | | | | | benign; Other | | | | | | hyperlipidemia; | | | | | | Benign prostatic | | | | | | hyperplasia, | | | | | | unspecified whether | | | | | | lower urinary tract | | | | | | symptoms present; | | | | | | History of gout; JEAN | | | | | | (obstructive sleep | | | | | | apnea); Benign | | | | | | localized prostatic | | | | | | hyperplasia with | | | | | | lower urinary tract | | | | | [...] + + + | Blood Pressure | 126/68 | 02/22/2019 1:04 PM | | | | | PDT | | + + + + + | Pulse | 63 | 02/22/2019 1:04 PM | | | | | PDT | | + + + + + | Temperature | 36.7 C (98.1 F) | 02/22/2019 1:04 PM | | | | | PDT | | + + + + + | Respiratory Rate | 16 | 02/22/2019 1:04 PM | | | | | PDT | | + + + + + | Oxygen Saturation | 95% | 02/22/2019 1:04 PM | | | | | PDT | | + + + + + | Inhaled Oxygen | - | - | | | Concentration | | | | + + + + + | Weight | 118.9 kg (262 lb 2 | 02/22/2019 1:04 PM | | | | oz) | PDT | | + + + + + | Height | - | - | | + + + + + | Body Mass Index | 37.61 | 02/02/2017 7:06 AM | | | | | PDT | | + + + + + documented in this encounter Progress Notes Beltran Fields MD - 02/22/2019 1:30 PM PDTFormatting of this note might be different f rom the original. Subjective: Patient ID: Guy Thurman is a 73 y.o. male. HPI Information below has been pulled from previous visit, reviewed and updated as appropriate. JEAN, CPAP, The crackling in the ear [...] is continuing to follow with Dr Padron. He notes he has a slowly weakening stream. HTN has been fine, checks it daily at home. and it runs in the 110's-130's/60-70's, no mar st pain, SOB, Ankle, pretibial edema R>L unchanged for years since 1992. This is stable. Paroxysmal Afib, He still has rare palp with overexertion There is no recent Chest pain. Rare episode, less than 6 episodes per year. Last several hours per episode, He is on ECASA 325mg po qd. Last echo 2007 with mild bitrial dilatation. Now on Flecainide 100mg p o bid and metoprolol 50 am and 25 in the evening. per Cardiology Dr Niranjan Luevano MD in [facility]. Hyperlipidemia, on lipitor, denies muscle aches or weakness. compliant with the medication s. This is stable. 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 there is no diabetic symptoms other than numb feet for the last 2 years. This is notice able. He declines medication of dietary consult, he sees an eye doctor once yearly JEAN on CPAP, He saw Geronimo Methow Last week. He was due for his colonscopy 03/02, He plans to call Dr Liza Abreu, one allopurinol since 1975. No recent flare. 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 He lives in [place], [place] 9 living Grandchildren. Patient's medications, allergies, past medical, surgical, social and family histories were obtained and reviewed as appropriate. ROS Constitutional: no fever, No appetite change, no [...] Depression, no anxiety,no sleep problems Objective: BP 126/68 | Pulse 63 | Temp 36.7 C (98.1 F) (Temporal) | Resp 16 | Wt 118.9 kg (262 lb 2 oz) | SpO2 95% | BMI 37.61 kg/m Physical Exam Heent, WNL, No carotid bruit Chest CTAB Heart RR&R /s M Abd S,NT,ND,BS+ Ext, no CCor E Neuro Non-focal Lymph, no cervical, axillary, inguinal adenopathy Musculoskeletal, no gross deformity or loss or range of motion Skin, no gross lesions Assessment: 1. Type 2 diabetes mellitus with hyperglycemia, without long-term current use of insulin (H CC) 2. Paroxysmal A-fib (HCC) 3. Essential hypertension, benign 4. Other hyperlipidemia 5. Benign prostatic hyperplasia, unspecified whether lower urinary tract symptoms present 6. History of gout 7. JEAN (obstructive sleep apnea) Plan: Pt looks and feels at baseline with no new complaints today. He has no new complaint today. Labs are due and he will obtain these at [facility]. He is overdue for his colonscopy and wi ll schedule. He also plans to follow up with Dr Padron. RTC 6 months, Otherwise continu e current medical regimen. documented in this encounter Plan of Treatment + +------+--------+ + + | Name | Type | Priori | Associated Diagnoses | Order Schedule | | | | ty | | | + +------+--------+ + + | CBC with | Lab | Routin | Essential | 1 Occurrences | | Differential | | e | hypertension, benign | starting 02/22/2019 | | | | | | until 02/22/2020 | + +------+--------+ + + | Comprehensive | Lab | Routin | Essential | 1 Occurrences | | Metabolic Panel | | e | hypertension, benign | starting 02/22/2019 | | | | | | until 02/22/2020 | + +------+--------+ + + | Lipid Panel | Lab | Routin | Other | 1 Occurrences | | | | e | hyperlipidemia | starting 02/22/2019 | | | | | | until 02/23/2020 | + +------+--------+ + + | Urinalysis with | Lab | Routin | Essential | 1 Occurrences | | Microscopic if | | e | hypertension, benign | starting 02/22/2019 | | Indicated | | | | until 02/22/2020 | + +------+--------+ + + | PSA, Diagnostic | Lab | Routin | Benign localized | 1 Occurrences | | | | e | prostatic | starting 02/22/2019 | | | | | hyperplasia with | until 02/22/2020 | | | | | lower urinary tract | | | | | | symptoms (LUTS) | | + +------+--------+ + + | Hemoglobin A1C | Lab | Routin | Type 2 diabetes | 1 Occurrences | | | | e | mellitus with | starting 02/22/2019 | | | | | hyperglycemia, | until 02/22/2020 | | | | | without long-term | | | | | | current use of | | | | | | insulin ([facility]) | | + +------+--------+ + + documented as of this encounter Visit Diagnoses + + | Diagnosis | + + | Type 2 diabetes mellitus with hyperglycemia, without long-term current use of insulin | | (HCC) - Primary | + + | Paroxysmal A-fib (HCC) Atrial fibrillation | + + | Essential hypertension, benign | + + | Other hyperlipidemia | + + | Benign prostatic hyperplasia, unspecified whether lower urinary tract symptoms present | + + | History of gout Personal history of other endocrine, metabolic, and immunity | | disorders | + + | JEAN (obstructive sleep apnea) Obstructive sleep apnea (adult) (pediatric) | + + | Benign localized prostatic hyperplasia with lower urinary tract symptoms (LUTS) | | Benign localized hyperplasia of prostate with urinary obstruction and other lower | | urinary tract symptoms (LUTS) | + + documented in this encounter"
--- OUTSIDE RECORDS SUMMARY | ~2020-03-26 | XMS | Encounter Summary ---
Demographics + + + | Address | [address] | | | [place] [address] | + + + | Home Phone [...] + | Author | [facility] | | | and [place] | + + + | Organization | [facility] [...] [place] | | | | | [address] | | + + + + + | Floyd Herndon | ECON | NA | | | | | NA, | | + + + + + Care Team Providers + +------+ + | Care Cardiac Cath Lab Technologist Name | Role | Phone | [...] | SR | | | | | [address] [facility] | | | | | | [place], [place] | | | | | | [address] | | | | | | [phone] | | | +--------+ + + + [...]
--- OUTSIDE RECORDS SUMMARY | ~2020-03-26 | XMS | Encounter Summary ---
Demographics + + + | Address | [address] | | | [place] [address] | + + + | Home Phone | | + + + | Preferred Language | Unknown | + + + | Marital Status | | + + + | Worship Affiliation | 1009 | + + + | Race | Unknown | + + + | Ethnic Group | Unknown | + + + Author + + + | Author | [facility] | | | and [place] | + + + | Organization | [facility] | | | and [place] | + + + | Address | Unknown | + + + | Phone | Unavailable | + + + Support + + + + + | Name | Relationship | Address | Phone | + + + + + | Yuliet Crow | ECON | [address] | | | | | [place] | | | | | [address] | | + + + + + | Floyd Herndon | ECON | NA | | | | | NA, | | + + + + + Care Team Providers + +------+ + | Care Oyster Grader Name | Role | Phone | + +------+ + PCP | Unavailable | + +------+ + Encounter Details +--------+ + + + + | Date | Type | Department | Care Team | Description | +--------+ + + + + | 03/05/ | Hospital | [facility] | Navid Main MD | | | 2007 | Encounter | MED CTR GENERIC OP | [address], [place] | | | | | CONV DEPT [address] | [address] [place], [place] | | | | | [place], | [address] | | | | | [place] [address] | | | | | | [phone] | | | +--------+ + + + [...]
--- OUTSIDE RECORDS SUMMARY | ~2020-03-26 | XMS | Encounter Summary ---
Demographics + + + | Address | [address] | | | [place] [address] | + + + | Home Phone | | + + + | Preferred Language | Unknown | + + + | Marital Status | | + + + | Faith Affiliation | 1009 | + + + | Race | Unknown | + + + | Ethnic Group | Unknown | + + + Author + + + | Author | [facility] | | | and [place] | + + + | Organization | [facility] | | | and [...] [place], [place] | | | | | [address] | | + + + + + | Floyd Herndon | ECON | NA | | | | | NA, | | + + + + + Care Team Providers + +------+ + | Care Public Health Sanitarian Name | Role | Phone | + +------+ + | Beltran Fields MD | PCP | | + +------+ + Reason for Visit +--------+ + | Reason | Comments | +--------+ + | Other | PSA prior to appt | +--------+ + Encounter Details +--------+ + + + + | Date | Type | Department | Care Team | Description | +--------+ + + + + | 10/23/ | Telephone | [facility] | Jordin Padron, | Other (PSA prior to | | 2012 | | [address] | MD [address] | appt) | | | | [place] | [place] [facility] [place] | | | | | [address] | [address] | | | | | [phone] | | | +--------+ + + + [...]
--- OUTSIDE RECORDS SUMMARY | ~2020-03-26 | XMS | Encounter Summary ---
Demographics + + + | Address | [address] | | | [place] [address] | + + + | Home Phone [...] | Author | [facility] | | | and [place] | + + + | Organization | [facility] | | | and [place] [...] [place] | | | | | [address] | | + + + + + | Floyd Herndon | ECON | NA | | | | | NA, | | + + + + + Care Team Providers + +------+ + | Care Watch Crystal Cutter Name | Role | Phone | [...] Description | +--------+---------+ + + + | 09/08/ | Office | [facility] | Beltran Fields, | Osteoarthritis; BPH | | 2011 | Visit | [facility] [place] | [address] | (benign prostatic | | | | [address] | [place] [address] [place], | hyperplasia); | | | | [place], [place] | [place] [address] | Essential | | | | [address] | [phone] | hypertension, | | | | [phone] | | benign; BENIGN | | | | | | PROSTATIC | | | | | | HYPERTROPHY, WITH | | | | | | OBSTRUCTION; | | | | | | Paroxysmal a-fib | | | | | | (HCC); | | | | | | Hyperglycemia; Gout; | | | | | | ED (erectile | | | | | | dysfunction) | +--------+---------+ + + + Social History [...] + + + | Blood Pressure | 116/76 | 09/08/2012 9:12 AM | | | | | PDT | | + + + + + | Pulse | 60 | 09/08/2012 9:12 AM | | | | | PDT | | + + + + + | Temperature | 36.8 C (98.2 F) | 09/08/2012 9:12 AM | | | | | PDT | | + + + + + | Respiratory Rate | 16 | 09/08/2012 9:12 AM | | | | | PDT | | + + + + + | Oxygen Saturation | 97% | 09/08/2012 9:12 AM | | | | | PDT | | + + + + + | Inhaled Oxygen | - | - | | | Concentration | | | | + + + + + | Weight | 123.8 kg (273 lb) | 09/08/2012 9:12 AM | | | | | PDT | | + + + + + | Height | 177.8 cm (5' 10") | 09/08/2012 9:12 AM | | | | | PDT | | + + + + + | Body Mass Index | 39.17 | 09/08/2012 9:12 AM | | | | | PDT | | + + + + + documented in this encounter Progress Notes Beltran Fields MD - 09/08/2012 9:30 AM PDTFormatting of this note might be different f rom the original. Subjective: Patient ID: Guy Thurman is a 66 y.o. male. HPI BPH, recent bx with Dr Padron, no cancer on bx. Urine flow is week, A dribble, unchanged from a year ago. He is not on a medication for this and is not interested in one at this ti me, There is urgency and hesitency when he travels. Gross hematuria, in the past which has not recurred since prior to the last visit. HTN has been fine, checks it and it runs in the 120's-130's/70-80's, no chest pain, SOB, An kle, pretibial edema R>L unchanged for years. This is unchanged. Paroxysmal Afib, A few recent episodes, Last several hours per episode, He generally only has 3-4 episodes per year. He plans to see Dr Ferro, He is on ECASA 325mg po qd. Last echo 2007 with mild bitrial dilatation. Hyperlipidemia, on niacin and zocor, denies muscle aches or weakness. compliant with the m edications. This is unchanged B knee, and lumbago still bothering him, There was an episode of swelling in the left knee this summer which has resolved. Denies any clicking locking giving out or swelling. He is not exercizing, He would be able to cycle if he wanted to. ED, viagra gives him headaches, He would like to try cialis Past Medical History: Reviewed history from 09/19/2010 [...] child and 3 stepchildren. He lives in [place]. 9 living Grandchildren. Review of Systems Review of Systems Constitutional: no fever, No appetite change, no fatigue. HENT: Negative for ear pain, No nosebleeds,no rhinorrhea,no trouble swallowing and no sinus pressure. New tube in the right ear. Poor hearing in this ear but this is i mproved Eyes: Negative for pain and no visual disturbance. Respiratory: Negative for cough, no chest tightness, no shortness of breath no wheezing. Cardiovascular: Negative for chest pain, pos palpitations and pos leg swelling. Gastrointestinal: Negative for nausea,no vomiting,no diarrhea,slight constipation no abdominal distention. No Belly pain, no black and no bloody stools, no excessive gas. Genitourinary: Negative for urgency, pos frequency, no decreased urine volume some difficulty urinating. No Bloody urine Musculoskeletal: Negative for myalgias, some back pain, no joint swelling and No arthra lgias. Some joint pain Skin: Negative for color change,no rash and No wounds, no Strange moles pos for skin tags. Neurological: Negative for dizziness, no Weakness,no light-headedness, no numbness and no headaches. Hematological: Negative for adenopathy. Does not bruise/bleed easily. Psychiatric/Behavioral: Negative for suicidal ideas,no confusion and no agitation. no Depression, no anxiety,no sleep problems Objective: Physical Exam Heent, WNL, No carotid bruit Chest CTAB Heart RR&R /s M Abd S,NT,ND,BS+, obese Ext, no CCor no 1+ edema pretibial B Neuro Non-focal Lymph, no cervical, axillary, inguinal adenopathy Musculoskeletal, no gross deformity or loss or range of motion Skin, no gross lesions , No palpable hernia but mild B bulge Rectal no mass, no hemorrhoids, guiac neg, control pos Prostate: moderately enlarged size, contour, symmetry, no nodules or firmness Assessment: 1. Osteoarthritis 2. BPH (benign prostatic hyperplasia) 3. Essential hypertension, benign 4. BENIGN PROSTATIC HYPERTROPHY, WITH OBSTRUCTION 5. Paroxysmal a-fib 6. Hyperglycemia Plan: He looks and feels fine for the most part. He needs labs. He will see Dr Ferro soon. If his groin pain increases he will let me know. We may conside r echo if palpitation frequency increases. documented in this encounter Plan of Treatment Not on filedocumented as of this encounter Visit Diagnoses + + | Diagnosis | + + | Osteoarthritis Osteoarthrosis, unspecified whether generalized or localized, | | unspecified site | + + | BPH (benign prostatic hyperplasia) Unspecified hyperplasia of prostate without | | urinary obstruction and other lower urinary tract symptoms (LUTS) | + + | Essential hypertension, benign | + + | BENIGN PROSTATIC HYPERTROPHY, WITH OBSTRUCTION Hypertrophy of prostate with urinary | | obstruction and other lower urinary tract symptoms (LUTS) | + + | Paroxysmal A-fib (HCC) Atrial fibrillation | + + | Hyperglycemia Other abnormal glucose | + + | Gout Gout, unspecified | + + | ED (erectile dysfunction) Impotence of organic origin | + + documented in this encounter
--- OUTSIDE RECORDS SUMMARY | ~2020-03-26 | XMS | Encounter Summary ---
Demographics + + + | Address | [address] | | | [place] [address] | + + + | Home Phone [...] | Author | [facility] | | | and [place] | + + + | Organization | [facility] | | | and [place] [...] [place] | | | | | [address] | | + + + + + | Floyd Herndon | ECON | NA | | | | | NA, | | + + + + + Care Team Providers + +------+ + | Care Medical Equipment Repair Technician Name | Role | Phone | [...] Description | +--------+--------+ + + + | 11/10/ | Refill | [facility] [place] [facility] | Beltran Fields, | Medication Refill | | 2012 | | MEDICINE [facility] | [address] [place] [address] | | | | | [facility] | [place] [address] [place], | | | | | [place] [address] | [place] [address] | | | | | [phone] | [phone] | | | | | | | [...]
--- OUTSIDE RECORDS SUMMARY | ~2020-03-26 | XMS | Encounter Summary ---
Demographics + + + | Address | [address] | | | [place] [address] | + + + | Home Phone | | + + + | Preferred Language | Unknown | + + + | Marital Status | | + + + | Restorationism Affiliation | 1009 | + + + | Race | Unknown | + + + | Ethnic Group | Unknown | + + + Author + + + | Author | [facility] | | | and [place] | + + + | Organization | [facility] | | | and [place] [...] [place] | | | | | [address] | | + + + + + | Floyd Herndon | ECON | NA | | | | | NA, | | + + + + + Care Team Providers + +------+ + | Care Area Development Consultant Name | Role | Phone | [...] [place] | | | | | [address] | [address] | | | | | [phone] | | | +--------+ + + + [...] - 1.03 | EXTERNAL | | | [place], | | | LAB | | | [...]
--- OUTSIDE RECORDS SUMMARY | ~2020-03-26 | XMS | Encounter Summary ---
Demographics + + + | Address | [address] | | | [place] [address] | + + + | Home Phone [...] + | Author | [facility] | | | and [place] | + + + | Organization | [facility] | | | and [place] | [...] [place] | | | | | [address] | | + + + + + | Floyd Herndon | ECON | NA | | | | | NA, | | + + + + + Care Team Providers + +------+ + | Care Manuscripts Archivist Name | Role | Phone | + [...] | SLEEP DISORDER [address] | [address] | | | | | [address] [place] | [place] | | | | | [place] [address] | [address] | | | | | [phone] | | | +--------+ + + + [...]
--- OUTSIDE RECORDS SUMMARY | ~2020-03-26 | XMS | Encounter Summary ---
Demographics + + + | Address | [address] | | | [place] [address] | + + + | Home Phone [...] | [facility] | | | and [place] | + + + | Organization | [facility] | | | [...] [place] | | | | | [address] | | + + + + + | Floyd Herndon | ECON | NA | | | | | NA, | | + + + + + Care Team Providers + +------+ + | Care Rail Transit Operator Name | Role | Phone | [...] | 12/10/ | Refill | [facility] [place] [facility] | Beltran Fields, | Medication Refill | | 2015 | | MEDICINE [facility] | [address] [place] [address] | | | | | [facility] | [address] [place], | | | | | [place] [address] | [place] [address] | | | | | [phone] | [phone] | | | | | | | [...]
--- OUTSIDE RECORDS SUMMARY | ~2020-03-26 | XMS | Encounter Summary ---
Demographics + + + | Address | [address] | | | [place] [address] | + + + | Home Phone [...] + | Author | [facility] | | | and [place] | + + + | Organization | [facility] | | | and [...] [place] | | | | | [address] | | + + + + + | Floyd Herndon | ECON | NA | | | | | NA, | | + + + + + Care Team Providers + +------+ + | Care Soft Mud Molder Name | Role | Phone | + +------+ + PCP | Unavailable | + +------+ + Encounter Details +--------+ + + + + | Date | Type | Department | Care Team | Description | +--------+ + + + + | 08/06/ | Hospital | [facility] | | | | 1998 | Encounter | MED CTR XRAY [address] | | | | | | [place] | | | | | | [place] [address] | | | | | | [phone] | | | +--------+ + + + [...]
--- OUTSIDE RECORDS SUMMARY | ~2020-03-26 | XMS | Encounter Summary ---
Demographics + + + | Address | [address] | | | [place] [address] | + + + | Home Phone [...] | Author | [facility] | | | and [place] | + + + | Organization | [facility] | | | and [place] | [...] [place] | | | | | [address] | | + + + + + | Floyd Herndon | ECON | NA | | | | | NA, | | + + + + + Care Team Providers + +------+ + | Care Cafeteria Manager Name | Role | Phone | + +------+ + | Beltran Fields MD | PCP | | + +------+ + Reason for Visit +--------+ + | Reason | Comments | +--------+ + | Other | HEMATURIA | +--------+ + Encounter Details +--------+ + + + + | Date | Type | Department | Care Team | Description | +--------+ + + + + | 08/15/ | Telephone | [facility] | Jordin Padron, | Other ([place]) | | 2013 | | [address] | MD [address] | | | | | [place] | [place] | | | | | [address] | [address] | | | | | [phone] | | | +--------+ + + + [...] | | + +------+--------+ + + | Urinalysis, Reflex | Lab | Routin | Gross hematuria | 1 Occurrences | | Microscopic and/or | | e | | starting 08/15/2014 | | Culture | | | | until 08/15/2015 | + +------+--------+ + + documented as of this encounter Visit Diagnoses + + | Diagnosis | + + | Gross hematuria - Primary | + + documented in this encounter"
--- OUTSIDE RECORDS SUMMARY | ~2020-03-26 | XMS | Encounter Summary ---
Demographics + + + | Address | [address] | | | [place] [address] | + + + | Home Phone | | + + + | Preferred Language | Unknown | + + + | Marital Status | | + + + | Evangelical Affiliation | 1009 | + + + | Race | Unknown | + + + | Ethnic Group | Unknown | + + + Author + + + | Author | and [facility] | | | and [place] | + + + | Organization | and [facility] | | | and [...] [place] | | | | | [address] | | + + + + + | Floyd Herndon | ECON | NA | | | | | NA, | | + + + + + Care Team Providers + +------+ + | Care Java Programming Professor Name | Role | Phone | + [...] | 01/04/ | Refill | [facility] [place] [facility] | Beltran Fields, | Medication Refill | | 2014 | | MEDICINE [facility] | [address] [place] [address] | | | | | [facility] | [address] [place], | | | | | [place] [address] | [place] [address] | | | | | [phone] | [phone] | | | | | | | [...]
--- OUTSIDE RECORDS SUMMARY | ~2020-03-26 | XMS | Encounter Summary ---
Demographics + + + | Address | [address] | | | [place] [address] | + + + | Home Phone | | + + + | Preferred Language | Unknown | + + + | Marital Status | | + + + | Hinduism Affiliation | 1009 | + + + | Race | Unknown | + + + | Ethnic Group | Unknown | + + + Author + + + | Author | [facility] | | | and [place] | + + + | Organization | [facility] | | | and [place] | [...] [place] | | | | | [address] | | + + + + + | Floyd Herndon | ECON | NA | | | | | NA, | | + + + + + Care Team Providers + +------+ + | Care Wholesaler Name | Role | Phone | + +------+ + | Keyana Bolton MD | PCP | | + +------+ + Encounter Details +--------+ + + + + | Date | Type | Department | Care Team | Description | +--------+ + + + + | 04/28/ | Orders Only | [facility] [place] [facility] | Keyana Bolton, | Type 2 diabetes | | 2016 | | [facility] | [address] | mellitus with | | | | [address] | [place] [address] [place], | hyperglycemia (HCC) | | | | [place] | [place] [address] | (Primary Dx); | | | | [address] | [phone] | Hyperglycemia | | | | [phone] | | | +--------+ + + + [...] + documented as of this encounter Progress Renee Engle - 08/04/2016 10:42 AM PDTCare Opportunities have changed and will be addre ssed in a new encounter. IMAO Renee tatum - 04/28/2016 8:58 AM PDT GUY BROWN [facility] as requiring the ser vices listed in the table below (red boxes) due to the following condition(s): * Diabetes * Hypertension Last PCP Office Visit: 01/29/2016 Next Scheduled PCP Office Visit: none scheduled Exams, Tests and Shots Patient Goals Patient Most Recent Data Patient Action Steps Blood Pressure Below 140/90 114/72 04/21/2016 Follow our plan Cholesterol Take a cholesterol lowering medication Taking Keep taking your cholesterol medi cation Eye Exam Check as directed by eye doctor Not in our Medical Records Schedule an exam with y our eye doctor Foot Exam Check once a year Not in our Medical Records Get this done at your next Office Vi sit A1C Below 7 7.1 11/14/2015 Get tested Immunization Get Immunized Due Get a pneumonia and Tdap and Zoster shot. Cancer Screening Get Screened Due Get the following screening done: Colorectal cancer pennie patel Microalbumin Test at least once a year Not in our Medical Records Get tested at your next O ffice Visit Weight Manage my weight 262 lb 04/21/2016 Call your clinic if you would like an exercise or nutrition plan that is right for you To Primary Care Provider KEYANA BOLTON: Note if you agree with the services due: Office Visit for: Colorectal cancer screening Sign or remove pended order(s) as per your assessment - (see Machine Accountant): A1c (Hemoglobin A1c) - Already entered Microalbumin CBC w/ Differential - Already entered FLP - Already entered Urinalysis with Microscopic w/ Culture if Indicated - Already entered Route back to [facility] Disease Management Support Team by using the Follow-Up Section of the e [facility]. Thank you. documented in this encou nter Plan of Treatment Not on filedocumented as of this encounter Visit Diagnoses + + | Diagnosis | + + | Type 2 diabetes mellitus with hyperglycemia (HCC) - Primary Type II or unspecified | | type diabetes mellitus without mention of complication, not stated as uncontrolled | + + | Hyperglycemia Other abnormal glucose | + + documented in this encounter"
--- OUTSIDE RECORDS SUMMARY | ~2020-03-26 | XMS | Encounter Summary ---
Demographics + + + | Address | [address] | | | [place] [address] | + + + | Home Phone | | + + + | Preferred Language | Unknown | + + + | Marital Status | | + + + | Bahai Affiliation | 1009 | + + + | Race | Unknown | + + + | Ethnic Group | Unknown | + + + Author + + + | Author | [facility] | | | and [place] | + + + | Organization | [facility] | | | and [...] [place] | | | | | [address] | | + + + + + | Floyd Herndon | ECON | NA | | | | | NA, | | + + + + + Care Team Providers + +------+ + | Care Food Tester Name | Role | Phone | + +------+ + | Beltran Fields MD | PCP | | + +------+ + Reason for Visit +--------+ + | Reason | Comments | +--------+ + | Other | | +--------+ + Encounter Details +--------+ + + + + | Date | Type | Department | Care Team | Description | +--------+ + + + + | 03/02/ | Telephone | [facility] [place] [facility] | Beltran Fields, | Other | | 2012 | | MEDICINE [place] | [address] | | | | | [address] | [address] [place], | | | | | [place] | [place] [address] | | | | | [address] | [phone] | | | | | [phone] | | | +--------+ + + + [...]
--- OUTSIDE RECORDS SUMMARY | ~2020-03-26 | XMS | Encounter Summary ---
Demographics + + + | Address | [address] | | | [place] [address] | + + + | Home Phone [...] | Author | [facility] | | | and [place] | + + + | Organization | [facility] | | | and [place] [...] [place] | | | | | [address] | | + + + + + | Floyd Herndon | ECON | NA | | | | | NA, | | + + + + + Care Team Providers + +------+ + | Care Sales Support Administrator Name | Role | Phone | + +------+ + | Beltran Fields MD | PCP | | + +------+ + Encounter Details +--------+ + + + + | Date | Type | Department | Care Team | Description | +--------+ + + + + | 08/16/ | Abstract | [facility] | Jordin Padron, | | | 2013 | | [address] | MD [address] | | | | | [place] | [place] | | | | | [address] | [address] | | | | | [phone] | | | +--------+ + + + [...] + | URINALYSIS, REFLEX | Routin | 08/15/2014 | | Results for this | | MICROSCOPIC AND/OR | e | | | procedure are in the | | CULTURE | | | | results section. | + +--------+ + + + documented in this encounter Results Urinalysis, Reflex Microscopic and/or Culture (08/15/2014) + + + + + + | Component | Value | Ref Range | Performed | Pathologist | | | | | At | Signature | + + + + + + | COLLECTION | Clean Catch | | [facility] | | | [facility] | | [facility] | | | | | | [facility] | | | | | | CENTER - | | | | | | LABORATORY | | + + + + + + | Color | Straw | | [facility] | | | | | | [facility] | | | | | | MEDICAL | | | | | | CENTER - | | | | | | LABORATORY | | + + + + + + | Clarity | Hazy | | [facility] | | | | | | [facility] | | | | | | MEDICAL | | | | | | CENTER - | | | | | | LABORATORY | | + + + + + + | Specific | 1.010 | 1.005 - 1.030 | [facility] | | | [place], | | | [facility] | | | Urine | | | MEDICAL | | | | | | CENTER - | | | | | | LABORATORY | | + + + + + + | pH, Urine | 7.0 | 5.0 - 9.0 | [facility] | | | | | | [facility] | | | | | | MEDICAL | | | | | | CENTER - | | | | | | LABORATORY | | + + + + + + | Protein, | Negative | | [facility] | | | Urine | | | [facility] | | | | | | MEDICAL | | | | | | CENTER - | | | | | | LABORATORY | | + + + + + + | Glucose, | Normal | | [facility] | | | Urine [...] + | Bilirubin, | Negative | | [facility] | | | Urine | | | [facility] | | | | | | MEDICAL | | | | | | CENTER - | | | | | | LABORATORY | | + + + + + + | Blood, | 250 chen/uLComment: High | | [facility] | | | Urine | - abnormal | | [facility] | | | | | | MEDICAL | | | | | | CENTER - | | | | | | LABORATORY | | + + + + + + | Nitrite, | Negative | Negative, Test | [facility] | | | Urine | | not performed | [facility] | | | | | | [facility] | | | | | | CENTER - | | | | | | LABORATORY | | + + + + + + | Urobilinoge | Normal | | [facility] | | | n, Urine | | | [facility] | | | | | | MEDICAL | | | | | | CENTER - | | | | | | LABORATORY | | + + + + + + | Leukocyte | Negative | | [facility] | | | Esterase, | | | [facility] | | | Urine | | | MEDICAL | | | | | | CENTER - | | | | | | LABORATORY | | + + + + + + | CASTS | Negative | | [facility] | | | | | | [facility] | | | | | | MEDICAL | | | | | | CENTER - | | | | | | LABORATORY | | + + + + + + | White Blood | 0-2 | 0 - 2 /HPF | [facility] | | | Cells, | | | [facility] | | | Urine | | | MEDICAL | | | | | | CENTER - | | | | | | LABORATORY | | + + + + + + | Red Blood | 50-100 (A)Comment: >50 | 0 - 2 /HPF | [facility] | | | Cells, | | | [facility] | | | Urine | | | MEDICAL | | | | | | CENTER - | | | | | | LABORATORY | | + + + + + + | Epithelial | Negative | | [facility] | | | Cells | | | [facility] | | | | | | MEDICAL | | | | | | CENTER - | | | | | | LABORATORY | | + + + + + + | CRYSTAL UA | Negative | | [facility] | | | | [...] | [facility] | [address] | [place] [address] | | | [facility] | | [id number] | | | - LABORATORY | | | | + + + + + documented in this encounter Visit Diagnoses Not on filedocumented in this encounter"
--- OUTSIDE RECORDS SUMMARY | ~2020-03-26 | XMS | Encounter Summary ---
Demographics + + + | Address | [address] | | | [place] [address] | + + + | Home Phone [...] | Author | [facility] | | | and [place] | + + + | Organization | [facility] [...] [place] | | | | | [address] | | + + + + + | Floyd Herndon | ECON | NA | | | | | NA, | | + + + + + Care Team Providers + +------+ + | Care Teleprinter Installer Name | Role | Phone | + [...] Description | +--------+--------+ + + + | 05/27/ | Refill | [facility] [place] [facility] | Beltran Fields, | Medication Refill | | 2016 | | MEDICINE [facility] All | [address] [place] [address] | | | | | [place] | [address] [place], | | | | | [place] [address] | [place] [address] | | | | | [phone] | [phone] | | | | | | | [...] + | Diagnosis | + + | Gout, unspecified cause, unspecified chronicity, unspecified site | + + documented in this encounter"
--- OUTSIDE RECORDS SUMMARY | ~2020-03-26 | XMS | Encounter Summary ---
Demographics + + + | Address | [address] | | | [place] [address] | + + + | Home Phone | | + + + | Preferred Language | Unknown | + + + | Marital Status | | + + + | Mormonism Affiliation | 1009 | + + + | Race | Unknown | + + + | Ethnic Group | Unknown | + + + Author + + + | Author | [facility] | | | and [place] | + + + | Organization | [facility] | | | and [place] [...] [place] | | | | | [address] | | + + + + + | Floyd Herndon | ECON | NA | | | | | NA, | | + + + + + Care Team Providers + +------+ + | Care Outsole Leveler Name | Role | Phone | + +------+ + | eBltran Fields MD | PCP | | + +------+ + Reason for Visit + + + | Reason | Comments | + + + | Medication Refill | | + + + Encounter Details +--------+--------+ + + + | Date | Type | Department | Care Team | Description | +--------+--------+ + + + | 08/03/ | Refill | [facility] [place] [facility] | Beltran Fields, | Medication Refill | | 2019 | | MEDICINE [facility] All | [address] | | | | | [place] | [address] [place], | | | | | [place] [address] | [place] [address] | | | | | [phone] | [phone] | | | | | | | [...]
--- OUTSIDE RECORDS SUMMARY | ~2020-03-26 | XMS | Encounter Summary ---
Demographics + + + | Address | [address] | | | [place] [address] | + + + | Home Phone [...] Author | [facility] | | | and [place] | + + + | Organization | [facility] | [...] [place] | | | | | [address] | | + + + + + | Floyd Herndon | ECON | NA | | | | | NA, | | + + + + + Care Team Providers + +------+ + | Care Paper Products Machine Operator Name | Role | Phone [...] | | | | 01/02/ | | [place], | | | | 2004 | | [place] [address] | | | | | | [phone] | | | +--------+ + + + [...]
--- OUTSIDE RECORDS SUMMARY | ~2020-03-26 | XMS | Encounter Summary ---
Demographics + + + | Address | [address] | | | [place] [address] | + + + | Home Phone [...] Author | [facility] | | | and [place] | + + + | Organization | [facility] | | | and [place] [...] [place] | | | | | [address] | | + + + + + | Floyd Herndon | ECON | NA | | | | | NA, | | + + + + + Care Team Providers + +------+ + | Care Construction Millwright Name | Role | Phone | + +------+ + | Beltran Fields MD | PCP | | + +------+ + Encounter Details +--------+ + + + + | Date | Type | Department | Care Team | Description | +--------+ + + + + | 08/21/ | Orders Only | [facility] | Jordin Padron, | Abnormal PSA | | 2014 | | [address] | MD [address] | (Primary Dx) | | | | [place], [place] | [place] | | | | | [address] | [address] | | | | | [phone] | | | +--------+ + + + [...] + | Diagnosis | + + | Abnormal PSA - Primary Elevated prostate specific antigen (PSA) | + + documented in this encounter"
--- OUTSIDE RECORDS SUMMARY | ~2020-03-26 | XMS | Encounter Summary ---
Demographics + + + | Address | [address] | | | [place] [address] | + + + | Home Phone [...] | [facility] | | | and [place] | + + + | Organization | [facility] | | | and [...] [place] | | | | | [address] | | + + + + + | Floyd Herndon | ECON | NA | | | | | NA, | | + + + + + Care Team Providers + +------+ + | Care Group Fitness Assistant Department Head Name | Role | Phone | [...] | +--------+ + + + + | 07/20/ | Telephone | [facility] | Beltran Fields, | Medication Refill | | 2013 | | MEDICINE [facility] All | [address] | | | | | [facility] | [address] [place], | | | | | [place] [address] | [place] [address] | | | | | [phone] | [phone] | | | | | | | [...]
--- OUTSIDE RECORDS SUMMARY | ~2020-03-26 | XMS | Encounter Summary ---
Demographics + + + | Address | [address] | | | [place] [address] | + + + | Home Phone | | + + + | Preferred Language | Unknown | + + + | Marital Status | | + + + | Mandaen Affiliation | 1009 | + + + | Race | Unknown | + + + | Ethnic Group | Unknown | + + + Author + + + | Author | [facility] | | | and [place] | + + + | Organization | [facility] [...] [place] | | | | | [address] | | + + + + + | Floyd Herndon | ECON | NA | | | | | NA, | | + + + + + Care Team Providers + +------+ + | Care Mall Manager Name | Role | Phone | [...] Description | +--------+--------+ + + + | 07/09/ | Refill | [facility] [place] [facility] | Beltran Fields, | Medication Refill | | 2016 | | MEDICINE [facility] All | [address] [place] [address] | | | | | [place] | [address] [place], | | | | | [place] [address] | [place] [address] | | | | | [phone] | [phone] | | | | | | | [...]
--- OUTSIDE RECORDS SUMMARY | ~2020-03-26 | XMS | Encounter Summary ---
Demographics + + + | Address | [address] | | | [place] [address] | + + + | Home Phone [...] | Author | [facility] | | | and [place] | + + + | Organization | [facility] | | | and [...] [place] | | | | | [address] | | + + + + + | Floyd Herndon | ECON | NA | | | | | NA, | | + + + + + Care Team Providers + +------+ + | Care Technical Delivery Manager Name | Role | Phone | + +------+ + | Beltran Fields MD | PCP | | + +------+ + Encounter Details +--------+ + + + + | Date | Type | Department | Care Team | Description | +--------+ + + + + | 12/08/ | Patient | [facility] | Beltran Fields, | | | 2016 | Outreach | MEDICINE [address] | [address] | | | | | Street [place] | [address] [place], | | | | | [place] [address] | [place] [address] | | | | | [phone] | [phone] | | | | | | | [...]
--- OUTSIDE RECORDS SUMMARY | ~2020-03-26 | XMS | Encounter Summary ---
Demographics + + + | Address | [address] | | | [place] [address] | + + + | Home Phone [...] + + + | Author | [facility] | | | and [place] | + + + | Organization | [facility] | | | and [...] [place] | | | | | [address] | | + + + + + | Floyd Herndon | ECON | NA | | | | | NA, | | + + + + + Care Team Providers + +------+ + | Care Doll Wigs Hackler Name | Role | Phone | + +------+ + | Beltran Fields MD | PCP | | + +------+ + Encounter Details +--------+ + + + + | Date | Type | Department | Care Team | Description | +--------+ + + + + | 03/24/ | Hospital | [facility] | Beltran Fields, | IGT (impaired | | 2013 | Encounter | [facility] | [address] | glucose tolerance); | | | | [address] [place] | [place] [address] [place], | Other nonspecific | | | | [place], [place] | [place] [address] | finding on | | | | [address] | [phone] | examination of urine | | | | [phone] | | | +--------+ + + + [...] + + + +---------+ + + | Macclenny-3 Fatty | two capsules by | | [...] metoprolol | Take 1 tablet by | 90 | 3 | 09/08/20 | | | tartrate (LOPRESSOR) | mouth every evening. | tablet | | 12 | 3 | | 25 mg | | | | | | | tabletIndications: | | | | | | | Essential | | | | | | | hypertension, benign | | | | | | + + + +---------+ + + | metoprolol | Take 1 tablet by | 90 | 3 | 09/08/20 | | | tartrate (LOPRESSOR) | mouth every morning. | tablet | | 12 | 3 | | 50 mg | | | | | | | [...] encounter Progress Notes Beltran Fields MD - 11/20/2013 5:46 PM PST Quick Note: Ok for ma to notify patient that he has somewhat abnormal labs and would like to discuss w martirin a month. osancho, Beltran Nunn MD - 03/28/2013 5:03 PM PDT Quick Note: Ok for ma or nurse to notify pt that there may be slight lab abnormalities but that they d o not require follow up prior to next recommended visit but if they would like to discuss th ey can rtc earlier. documented in thi s encounter Plan of [...] URINALYSIS, REFLEX | Routin | 11/13/2013 | Other nonspecific | Results for this | | MICROSCOPIC AND/OR | e | 10:57 AM | finding on | procedure are in the | | CULTURE | | PST | examination of urine | results section. | + +--------+ + + + | HEMOGLOBIN A1C | Routin | 03/24/2013 | | Results for this | | | e | 10:43 AM | | procedure are in the | | | | PDT | | results section. | + +--------+ + + + | HEMOGLOBIN A1C | Routin | 03/24/2013 | IGT (impaired | Results for this | | | e | 10:33 AM | glucose tolerance) | procedure are in the | | | | PDT | | results section. | + +--------+ + + + documented in this encounter Results UA, Microscopic, Reflex (11/13/2013 10:57 AM PST) [...] + + | Red Blood | 3-10 (A) | 0 - 3 /hpf | [facility] [...] + | [facility] | [address] | [place], [place] | [phone] | | [facility] | | [address] | | | - LABORATORY | | | | + + + + + | [facility] | [address] | [place], [place] | | | [facility] | | [address], [place] | | | - LABORATORY | | [...] - 1.030 | [facility] | | | [place], | | | [facility] | | [...] | | | | | | [facility] | | | | | | MEDICAL [...] + | [facility] | [address] | [place], [place] | [phone] | | [facility] | | [address] | | | - LABORATORY | | | | + + + + + | [facility] | [address] | [place], [place] | | | [facility] | | [id number] [place] [address] | | | - LABORATORY | | | | + + + + + Hemoglobin A1C (03/24/2013 10:43 AM PDT) + + + + + + | Component | Value | Ref Range | Performed | Pathologist | | | | | At | Signature | + + + + + + | Hemoglobin | 6.4 (H)Comment: | 4.3 - 5.8 % | [facility] | | | A1c | DIABETIC PATIENT RANGES: | | [facility] | | | | 6.2-7.0% = Well | | MEDICAL | | | | Controlled | | CENTER - | | | | | | LABORATORY | | | | 7.0-9.0% = | | | | | | Intermediate | | | | | | | | | | | | | | | | | | >9.0% = Poorly | | | | | | Controlled | | | | + + + + + + + + | Specimen | + + | | + + + + + + + | Performing | Address | City/State/Zipcode | Phone Number | | Organization | | | | + + + + + | [facility] | [address] | [place], [place] | [phone] | | [facility] | | [address] | | | - LABORATORY | | | | + + + + + | [facility] | [address] | [place] | | | [facility] | | [address] [place] [address] | | | - LABORATORY | | | | + + + + + Hemoglobin A1C (03/24/2013 10:33 AM PDT) + + + + + + | Component | Value | Ref Range | Performed | Pathologist | | | | | At | Signature | + + + + + + | Hemoglobin | 6.4 (H)Comment: | 4.3 - 5.8 % | [facility] | | | A1c | DIABETIC PATIENT RANGES: | | [facility] | | | | 6.2-7.0% = Well | | MEDICAL | | | | Controlled | | CENTER - | | | | | | LABORATORY | | | | 7.0-9.0% = | | | | | | Intermediate | | | | | | | | | | | | >9.0% = | | | | | | Poorly Controlled | | | | + + + + + + + + | Specimen | + + | Blood specimen | | (specimen) | + + + + + + + | Performing | Address | City/State/Zipcode | Phone Number | | Organization | | | | + + + + + | [facility] | [address] | [place] | [phone] | | [facility] | | [address] | | | - LABORATORY | | | | + + + + + | [facility] | [address] | [place], [place] | | | [facility] | | [id number] | | | - LABORATORY | | | | + + + + + documented in this encounter Visit Diagnoses + + | Diagnosis | + + | IGT (impaired glucose tolerance) Impaired glucose tolerance test | + + | Other nonspecific finding on examination of urine | + + documented in this encounter"
--- OUTSIDE RECORDS SUMMARY | ~2020-03-26 | XMS | Encounter Summary ---
Demographics + + + | Address | [address] | | | [place] [address] | + + + | Home Phone | | + + + | Preferred Language | Unknown | + + + | Marital Status | | + + + | Methodist Affiliation | 1009 | + + + | Race | Unknown | + + + | Ethnic Group | Unknown | + + + Author + + + | Author | [facility] | | | and [place] | + + + | Organization | [facility] | | | and [...] [place] | | | | | [address] | | + + + + + | Floyd Herndon | ECON | NA | | | | | NA, | | + + + + + Care Team Providers + +------+ + | Care Life Advisor Name | Role | Phone | + [...] | MD [address] | (Primary Dx) | | | | Street [place] | [address] [place], | | | | | [place] [address] | [place] [address] | | | | | [phone] | [phone] | | | | | | | [...]
--- OUTSIDE RECORDS SUMMARY | ~2020-03-26 | XMS | Encounter Summary ---
Demographics + + + | Address | [address] | | | [place] [address] | + + + | Home Phone [...] | [facility] | | | and [place] | + + + | Organization | [facility] | [...] [place] | | | | | [address] | | + + + + + | Floyd Herndon | ECON | NA | | | | | NA, | | + + + + + Care Team Providers + +------+ + | Care Delivery Clerk Name | Role | Phone | + +------+ + | Beltran Fields MD | PCP | | + +------+ + Encounter Details +--------+ + + + + | Date | Type | Department | Care Team | Description | +--------+ + + + + | 11/17/ | Patient | [facility] [place] [facility] | Beltran Fields, | | | 2018 | Outreach | [facility] | [address] | | | | | [address] | [address] [place], | | | | | [place] | [place] [address] | | | | | [address] | [phone] | | | | | [phone] | | | +--------+ + + + [...]
--- OUTSIDE RECORDS SUMMARY | ~2020-03-26 | XMS | Encounter Summary ---
Demographics + + + | Address | [address] | | | [place] [address] | + + + | Home Phone | | + + + | Preferred Language | Unknown | + + + | Marital Status | | + + + | Christian Affiliation | 1009 | + + + | Race | Unknown | + + + | Ethnic Group | Unknown | + + + Author + + + | Author | [facility] | | | and [place] | + + + | Organization | [facility] | | | and [place] [...] [place] | | | | | [address] | | + + + + + | Floyd Herndon | ECON | NA | | | | | NA, | | + + + + + Care Team Providers + +------+ + | Care Sign Hanger Name | Role | Phone | [...] | 08/31/ | Refill | [facility] [place] [facility] | Beltran Fields, | Medication Refill | | 2017 | | MEDICINE [facility] All | [address] | | | | | [place] | [address] [place], | | | | | [place] [address] | [place] [address] | | | | | [phone] | [phone] | | | | | | | [...]
--- OUTSIDE RECORDS SUMMARY | ~2020-03-26 | XMS | Encounter Summary ---
Demographics + + + | Address | [address] | | | [place] [address] | + + + | Home Phone [...] | [facility] | | | and [place] | + + + | Organization | [facility] | [...] [place] | | | | | [address] | | + + + + + | Floyd Herndon | ECON | NA | | | | | NA, | | + + + + + Care Team Providers + +------+ + | Care Leather Tanner Name | Role | Phone | + [...] | 11/17/ | Refill | [facility] [place] [facility] | Beltran Fields, | Medication Refill | | 2019 | | MEDICINE [facility] All | [address] | | | | | [place] | [address] [place], | | | | | [place] [address] | [place] [address] | | | | | [phone] | [phone] | | | | | | | [...]
--- OUTSIDE RECORDS SUMMARY | ~2020-03-26 | XMS | Encounter Summary ---
Demographics + + + | Address | [address] | | | [place] [address] | + + + | Home Phone | | + + + | Preferred Language | Unknown | + + + | Marital Status | | + + + | Rastafarian Affiliation | 1009 | + + + | Race | Unknown | + + + | Ethnic Group | Unknown | + + + Author + + + | Author | [facility] | | | and [place] | + + + | Organization | [facility] [...] [place] | | | | | [address] | | + + + + + | Floyd Herndon | ECON | NA | | | | | NA, | | + + + + + Care Team Providers + +------+ + | Care Cotton Cleaner Name | Role | Phone | [...] Description | +--------+--------+ + + + | 05/02/ | Refill | [facility] [place] [facility] | Beltran Fields, | Medication Refill | | 2014 | | MEDICINE [facility] All | [address] [place] [address] | | | | | [place] | [address] [place], | | | | | [place] [address] | [place] [address] | | | | | [phone] | [phone] | | | | | | | [...]
--- OUTSIDE RECORDS SUMMARY | ~2020-03-26 | XMS | Encounter Summary ---
Demographics + + + | Address | [address] | | | [place] [address] | + + + | Home Phone [...] | [facility] | | | and [place] | + + + | Organization | [facility] | [...] [place] | | | | | [address] | | + + + + + | Floyd Herndon | ECON | NA | | | | | NA, | | + + + + + Care Team Providers + +------+ + | Care County Treasurer Name | Role | Phone | + [...] + + | 02/07/ | Office | [facility] | Geronimo Iglesias PA | JEAN on CPAP (Primary | | 2019 | Visit | SLEEP DISORDER 401 | [address] | Dx) | | | | [address] | [place] | | | | | [place] [address] | [id number] | | | | | [phone] | | | +--------+---------+ + + + [...] nasal mask DME: [facility] [place] pressure: 8-16 cm Median: 10.2 cm 95%: [...] a full face mask, such as a [employer] F20 full face mask, RespirTheraSim DreamWear full face mask or Respiron ics [...] /m Assessment: Problem #1: OBSTRUCTIVE SLEEP APNEA (RFE50-A76.33) This is controlled with CPAP. His CPAP compliance is going well, but he has many mornings that he wakes with a dry mouth. Plan: 1. He is to continue with CPAP indefinitely. 2. He is to go to [facility] [place] to get a full face mask . 3. Touch base with medical supplier twice per year to ensure that all equipment is satisfa ctory. I will follow up again in 2 years, sooner prn. Fifteen minutes were spent [id number], wi th the majority of time spent in counseling. Geronimo Iglesias PA-C cc: Beltran Fields MD orvictorina, Anaya, Medical As sistant - 02/07/2019 2:00 PM PDTFormatting of this note might be different from the origina lCarlos 02/07/19 1300 Lopez Depression Inventory-II Depression Score 5 - Minimal depression Insomnia Severity Index Insomnia Severity Index 15 Dover Sleepiness Scale 1. Sitting and reading 3 [...]
--- OUTSIDE RECORDS SUMMARY | ~2020-03-26 | XMS | Encounter Summary ---
Demographics + + + | Address | [address] | | | [place] [address] | + + + | Home Phone [...] + | Author | [facility] | | | and [place] | + + + | Organization | [facility] [...] [place] | | | | | [address] | | + + + + + | Floyd Herndon | ECON | NA | | | | | NA, | | + + + + + Care Team Providers + +------+ + | Care Gelatin Plant Supervisor Name | Role | Phone | [...] | +--------+ + + + + | 05/08/ | Telephone | [facility] | Beltran Fields, | Other | | 2015 | | MEDICINE [address] | [address] | | | | | Street [place] | [place] [address] [place], | | | | | [place] [address] | [place] [address] | | | | | [phone] | [phone] | | | | | | | [...]
--- OUTSIDE RECORDS SUMMARY | ~2020-03-26 | XMS | Encounter Summary ---
Demographics + + + | Address | [address] | | | [place] [address] | + + + | Home Phone | | + + + | Preferred Language | Unknown | + + + | Marital Status | | + + + | Orthodox Affiliation | 1009 | + + + | Race | Unknown | + + + | Ethnic Group | Unknown | + + + Author + + + | Author | [facility] | | | and [place] | + + + | Organization | [facility] | | | and [...] [place] | | | | | [address] | | + + + + + | Floyd Herndon | ECON | NA | | | | | NA, | | + + + + + Care Team Providers + +------+ + | Care Planner Internship Name | Role | Phone | + [...] Refill | | 2017 | | MEDICINE [facility] All | [address] | | | | | [place] | [address] [place], | | | | | [place] [address] | [place] [address] | | | | | [phone] | [phone] | | | | | | | [...]
--- OUTSIDE RECORDS SUMMARY | ~2020-03-26 | XMS | Encounter Summary ---
Demographics + + + | Address | [address] | | | [place] [address] | + + + | Home Phone | | + + + | Preferred Language | Unknown | + + + | Marital Status | | + + + | Church Affiliation | 1009 | + + + | Race | Unknown | + + + | Ethnic Group | Unknown | + + + Author + + + | Author | [facility] | | | and [place] | + + + | Organization | [facility] | | | and [place] [...] [place] | | | | | [address] | | + + + + + | Floyd Herndon | ECON | NA | | | | | NA, | | + + + + + Care Team Providers + +------+ + | Care Overnight Caregiver Name | Role | Phone | + +------+ + | Beltran Fields MD | PCP | | + +------+ + Encounter Details +--------+ + + + + | Date | Type | Department | Care Team | Description | +--------+ + + + + | 11/17/ | Patient | [facility] [place] [facility] | Beltran Fields, | | | 2018 | Outreach | [facility] | [address] | | | | | [address] | [place] [address] [place], | | | | | [place] | [place] [address] | | | | | [address] | [phone] | | | | | [phone] | | | +--------+ + + + [...]
--- OUTSIDE RECORDS SUMMARY | ~2020-03-26 | XMS | Encounter Summary ---
Demographics + + + | Address | [address] | | | [place] [address] | + + + | Home Phone | | + + + | Preferred Language | Unknown | + + + | Marital Status | | + + + | Christian Affiliation | 1009 | + + + | Race | Unknown | + + + | Ethnic Group | Unknown | + + + Author + + + | Author | [facility] | | | and [place] | + + + | Organization | [facility] | | [...] [place] | | | | | [address] | | + + + + + | Floyd Herndon | ECON | NA | | | | | NA, | | + + + + + Care Team Providers + +------+ + | Care Time Motion Analyst Name | Role | Phone | + +------+ + | Beltran Fields MD | PCP | | + +------+ + Reason for Visit +---------+ + | Reason | Comments | +---------+ + | Results | | +---------+ + Encounter Details +--------+ + + + + | Date | Type | Department | Care Team | Description | +--------+ + + + + | 03/07/ | Telephone | [facility] [place] [facility] | Beltran Fields, | Results | | 2018 | | MEDICINE [address] | [address] | | | | | Street [place] | [address] [place], | | | | | [place] [address] | [place] [address] | | | | | [phone] | | | | | | | [...]
--- OUTSIDE RECORDS SUMMARY | ~2020-03-26 | XMS | Encounter Summary ---
Demographics + + + | Address | [address] | | | [place] [address] | + + + | Home Phone [...] + | Author | [facility] | | | and [place] | + + + | Organization | [facility] [...] [place] | | | | | [address] | | + + + + + | Floyd Herndon | ECON | NA | | | | | NA, | | + + + + + Care Team Providers + +------+ + | Care Writer Producer Name | Role | Phone | + [...] Description | +--------+---------+ + + + | 04/21/ | Office | [facility] | Geronimo Iglesias PA | JEAN on CPAP (Primary | | 2016 | Visit | SLEEP DISORDER [address] | [address] | Dx) | | | | [address] | [place] | | | | | [place] [address] | [id number] | | | | | [phone] | | | +--------+---------+ + + + [...] + + + | Blood Pressure | 114/72 | 04/21/2016 3:16 PM | | | | | PDT | | + + + + + | Pulse | 64 | 04/21/2016 3:16 PM | | | | | PDT | | + + + + + | Temperature | - | - | | + + + + + | Respiratory Rate | 16 | 04/21/2016 3:16 PM | | | | | PDT | | + + + + + | Oxygen Saturation | 94% | 04/21/2016 3:16 PM | | | | | PDT | | + + + + + | Inhaled Oxygen | - | - | | | Concentration | | | | + + + + + | Weight | 118.8 kg (262 lb) | 04/21/2016 3:16 PM | | | | | PDT | | + + + + + | Height | - | - | | + + + + + | Body Mass Index | 37.59 | 01/29/2016 1:35 PM | | | | | PDT | | + + + + + documented in this encounter Progress Notes Paola Gallegos, Computer Forensics Investigator - 04/21/2016 3:22 PM PDT 04/21/16 1500 Lopez Depression Inventory-II Depression Score 1 - Minimal depression Insomnia Severity Index Insomnia Severity Index 9 [place] Sleepiness Scale Sitting and reading 2 Watching TV 1 Sitting, inactive in a public place (e.g. a theatre or a meeting) 1 As a passenger in a car for an hour without a break 0 Lying down to rest in the afternoon when circumstances permit 2 Sitting and talking to someone 0 Sitting quietly after a lunch without alcohol 2 In a car, while stopped for a few minutes in traffic 0 Total score 8 SF-36v2 Score PF 47.97 RP 57.16 BP 46.27 GH 53.19 VT 58.54 SF 57.34 RE 56.17 MH 48.25 PCS 50.66 MCS 55.71 oram, TENNILLE Gandara - 05/2016 2:57 PM PDT Subjective: Patient ID: Guy Thurman is a 70 y.o. male. HPI last office visit was: 03/24/2013 date of polysomnography: 10/19/2001 AHI: 15.3 RDI: O2%: 87.8% Machine type: ResMed AirSense 10 with nasal mask DME: [facility] [place] pressure: 8-16 cm Median: 10.4 cm 95%: 12.2 cm maximum: 13.1 cm Nights using CPAP: 364/365 % of nights >4 hours: 98% average usage (all nights): 6:37 average usage (nights used): 6:38 AHI: 1.5 Guy comes in for CPAP compliance. He has used CPAP since 2000. He has a history of exce llent compliance. His CPAP has become a regular part of his sleep routine. 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 He does not have any questions or concerns. I have discussed the download in detail. This shows that his sleep apnea is controlled, wi th an AHI of 1.5. It also shows that his leaks are controlled. BP 114/72 mmHg | Pulse 64 | Resp 16 | Wt 118.842 kg (262 lb) | SpO2 94% Review of Systems Objective: Physical Exam Assessment: Problem #1: OBSTRUCTIVE SLEEP APNEA (VKW27-L55.33) This is well controlled with CPAP. His CPAP compliance is going well. Plan: 1. He is to continue with CPAP indefinitely. 2. Touch base with medical supplier twice per year to ensure that all equipment is satisfa ctory. I will follow up again in 2 years, sooner prn. At that time we will reassess with all appr opriate paperwork. Fifteen minutes were spent [id number], with the majority of time spent in counseling. Geronimo Iglesias PA-C cc: Beltran Fields MD documented in this enco unter Plan of Treatment Not on filedocumented as of this encounter Visit Diagnoses + + | Diagnosis | + + | JEAN on CPAP - Primary Obstructive sleep apnea (adult) (pediatric) | + + documented in this encounter"
--- OUTSIDE RECORDS SUMMARY | ~2020-03-26 | XMS | Encounter Summary ---
Demographics + + + | Address | [address] | | | [place] [address] | + + + | Home Phone | | + + + | Preferred Language | Unknown | + + + | Marital Status | | + + + | Pentecostal Affiliation | 1009 | + + + | Race | Unknown | + + + | Ethnic Group | Unknown | + + + Author + + + | Author | [facility] | | | and [place] | + + + | Organization | [facility] | | | and [...] [place] | | | | | [address] | | + + + + + | Floyd Herndon | ECON | NA | | | | | NA, | | + + + + + Care Team Providers + +------+ + | Care Feather Duster Winder Name | Role | Phone | + [...] | 08/03/ | Refill | [facility] [place] [facility] | Beltran Fields, | Medication Refill | | 2019 | | MEDICINE [facility] All | [address] | | | | | [place] | [address] [place], | | | | | [place] [address] | [place] [address] | | | | | [phone] | [phone] | | | | | | | [...]
--- OUTSIDE RECORDS SUMMARY | ~2020-03-26 | XMS | Encounter Summary ---
Demographics + + + | Address | [address] | | | [place] [address] | + + + | Home Phone [...] + + | Author | [facility] | | | and [place] | + + + | Organization | [facility] | | | and [place] [...] [place] | | | | | [address] | | + + + + + | Floyd Herndon | ECON | NA | | | | | NA, | | + + + + + Care Team Providers + +------+ + | Care Swatch Paster Name | Role | Phone | + +------+ + | Beltran Fields MD | PCP | | + +------+ + Encounter Details +--------+ + + + + | Date | Type | Department | Care Team | Description | +--------+ + + + + | 11/14/ | Hospital | [facility] | Beltran Fields, | [place] | | 2015 | Encounter | [facility] CTR LAB[facility]ORY | [place] [address] | hypercholesterolemia | | | | [address] [place] | [place] [address] [place], | (Primary Dx); Iron | | | | [place], [place] | [place] [address] | deficiency anemia; | | | | [address] | [phone] | Hyperglycemia; Iron | | | | [phone] | | deficiency anemia, | | | | | | unspecified | +--------+ + + + + Social [...] + + + +---------+ + + | Bison-3 Fatty | two capsules by | | [...] tablet by | 90 | 3 | 12/03/19 | | | (ZYLOPRIM) 300 mg | mouth Daily. | tablet | | 15 | 6 | | tablet | | | | | | + + + +---------+ + + | aspirin 325 mg EC | Take 325 mg by mouth | | 0 | 07/27/20 | | | tablet | Daily. | | | 12 | 6 | + + + +---------+ + + | atorvaSTATin | Take 1 tablet by | 90 | 3 | 11/22/19 | | | (LIPITOR) 40 mg | mouth Daily. | tablet | | 15 | 6 | | tabletIndications: | | | | | | | Hyperlipidemia | | | | | | + + + +---------+ + + | flecainide | Take 1 tablet by | 180 | 3 | 11/14/20 | | | (TAMBOCOR) 100 mg | mouth 2 times daily. | tablet | | 15 | 7 | | tabletIndications: | | | | | | | Paroxysmal A-fib | | | | | | | (HCC) | | | | | | + + + +---------+ + + | fluticasone | 2 sprays each | 16 g | 5 | 07/26/20 | | | (FLONASE) 50 | nostril daily | | | 15 | 6 | | mcg/nasal spray | | | | | | + + + +---------+ + + | | Take 1 tablet by | 90 | 3 | 02/12/20 | | | hydrochlorothiazide | mouth Daily. | tablet | | 15 | 6 | | 50 mg tablet | | [...] TABLET BY | 90 | 3 | 05/28/20 | | | tartrate (LOPRESSOR) | MOUTH AT DINNER TIME | tablet | | 15 | 6 | | 25 mg | | | | | | | tabletIndications: | | | | | | | Essential | | | | | | | hypertension, benign | | | | | | + + + +---------+ + + | metoprolol | Take 1 tablet by | 30 | 10 | 01/04/20 | | | tartrate (LOPRESSOR) | mouth Daily. | tablet | | 15 | 6 | | 50 mg tablet | | | | | | + + + +---------+ + + | niacin 500 MG CR | 4 capsules by mouth | | 0 | 07/27/20 | | | capsule | at bedtime | | | 12 | 8 | + + + +---------+ + + | potassium chloride | One po qd | 180 | 1 | 05/28/20 | | | (POTASSIUM CHLORIDE | | tablet | | 15 | 6 | | SA) 20 mEq | | | | | | | tabletIndications: | | | | | | | Hypokalemia | | | | | | + [...] + + | tadalafil (CIALIS) | Take 1 tablet by | 30 | 1 | 11/22/19 | | | 5 MG | mouth prior to | tablet | | 15 | 6 | | tabletIndications: | sexual activity | | | | | | ED (erectile | | | | | | | dysfunction) | | | | | | + + + +---------+ + + documented as of this encounter Progress Notes Beltran Fields MD - 11/14/2015 12:58 PM PST Quick Note: Ok for ma to notify patient that he has somewhat abnormal labs and would like to discuss w latanya a month. Cbc and iron panel prior. documented in thi s encounter Plan of Treatment Not on filedocumented as of this encounter Procedures + +--------+ + + + | Procedure Name | Priori | Date/Time | Associated Diagnosis | Comments | | | ty | | | | + +--------+ + + + | IRON AND TRANSFERRIN | Routin | 11/14/2015 | Iron deficiency | Results for this | | | e | 12:14 PM | anemia, unspecified | procedure are in the | | | | PST | | results section. | + +--------+ + + + | CBC WITH | Routin | 11/14/2015 | Iron deficiency | Results for this | | DIFFERENTIAL | e | 12:09 PM | anemia | procedure are in the | | | | PST | | results section. | + +--------+ + + + | HEMOGLOBIN A1C | Routin | 11/14/2015 | Hyperglycemia | Results for this | | | e | 12:09 PM | | procedure are in the | | | | PST | | results section. | + +--------+ + + + | COMPREHENSIVE | Routin | 11/14/2015 | Hyperglycemia | Results for this | | METABOLIC PANEL | e | 12:09 PM | | procedure are in the | | | | PST | | results section. | + +--------+ + + + documented in this encounter Results Iron and Transferrin (11/14/2015 12:14 PM PST) + + + + + + | Component | Value | Ref Range | Performed | Pathologist | | | | | At | Signature | + + + + + + | Iron | 41 (L) | 50 - 160 ug/dL | [facility] | | | | | | [facility] | | | | | | [facility]ICAL | | | | | | C[facility] - | | | | | | LABORATORY | | + + + + + + | TRANSFERRIN | 289.0 | 240.0 - 480.0 | [facility] | | | | | mg/dL | [facility] | | | | | | MEDICAL | | | | | | CENTER - | | | | | | LABORATORY | | + + + + + + | TIBC | 405 | 235 - 425 ug/dL | [facility] | | | | | | [facility] | | | | | | [facility]ICAL | | | | | | CENTER - | | | | | | LABORATORY | | + + + + + + | % | 10.1 (L) | 20.0 - 55.0 % | [facility] | | | SATURATION | | | [facility] | | [...] + | [facility] | [address] | [place] | [phone] | | [facility] | | [address] | | | - LABORATORY | | | | + + + + + Hemoglobin A1C (11/14/2015 12:09 PM PST) + +---------+ + + + | Component | Value | Ref Range | Performed | Pathologist | | | | | At | Signature | + +---------+ + + + | Hemoglobin | 7.1 (H) | 4.3 - 6.0 % | [facility] | | | A1c | | | [facility] | | | | | | MEDICAL | | | | | | CENTER - | | | | | | LABORATORY | | + +---------+ + + + | Estimated | 157 | mg/dL | [facility] | | | Average | | | [facility] | | | Glucose | | | [...] | + + + + + | [facility] | [address] | [place] | [phone] | | [facility] | | [address] | | | - LABORATORY | | [...] 11 | 7 - 18 mg/dL | [facility] | | | | | | [facility] | | | | | | MEDICAL | | | | | | CENTER - | | | | | | LABORATORY | | + + + + + + | Creatinine | 1.07 | 0.60 - 1.30 | [facility] | | | | | mg/dL | [facility] | | | | | | MEDICAL | | | | | | CENTER - | | | | | | LABORATORY | | + + + + + + | eGFR if not | >60Comment: GLOMERULAR | >=60 | [facility] | | | | FILTRATION | mL/min/1.73m2 | [facility] | | | NIGERIEN | RATE,ESTIMATED | | MEDICAL | | | | mL/min/1.09y1Umng than | | CENTER - | | [...] | 9.4 | 8.3 - 10.5 | [facility] | | | | | mg/dL | [facility] | | | | | | MEDICAL | | | | | | CENTER - | | | | | | LABORATORY | | + + + + + + | Albumin | 3.8 | 3.2 - 5.0 g/dL | [facility] [...] + | [facility] | [address] | [place] | [phone] | | [facility] | | [address] | | | - LABORATORY | | [...] + | [facility] | [address] | [place] | [phone] | | [facility] | | [address] | | | - LABORATORY | | | | + + + + + documented in this encounter Visit Diagnoses + + | Diagnosis | + + | Pure hypercholesterolemia - Primary | + + | Iron deficiency anemia Iron deficiency anemia, unspecified | + + | Hyperglycemia Other abnormal glucose | + + | Iron deficiency anemia, unspecified | + + documented in this encounter"
--- OUTSIDE RECORDS SUMMARY | ~2020-03-26 | XMS | Encounter Summary ---
Demographics + + + | Address | [address] | | | [place] [address] | + + + | Home Phone | | + + + | Preferred Language | Unknown | + + + | Marital Status | | + + + | Scientologist Affiliation | 1009 | + + + | Race | Unknown | + + + | Ethnic Group | Unknown | + + + Author + + + | Author | [facility] | | | and [place] | + + + | Organization | [facility] | | | and [place] [...] [place] | | | | | [address] | | + + + + + | Floyd Herndon | ECON | NA | | | | | NA, | | + + + + + Care Team Providers + +------+ + | Care Certified Personal Finance Counselor Name | Role | Phone | + +------+ + | Beltran Fields MD | PCP | | + +------+ + Encounter Details +--------+ + + + + | Date | Type | Department | Care Team | Description | +--------+ + + + + | 11/13/ | Hospital | [facility] | VitoJordin, | | | 2012 | Encounter | MED CTR LAB[facility]ATORY | [address] | | | | | [address] [place] | [place], [place] | | | | | [place], [place] | [address] | | | | | [address] | | | | | | [phone] | | | +--------+ + + + [...] + + + +---------+ + + | Peever-3 Fatty | two capsules by | | [...] | | [facility] | | | [facility] | | | - LABORATORY | + + + + + + + + | Performing | Address | City/State/Zipcode | Phone Number | | Organization | | | | + + + + + | [facility] | [address] | [place], [place] | [phone] | | [facility] | | [address] | | | - LABORATORY | | | | + + + + + | [facility] | [address] | [place], [place] | | | [facility] | | [address] [place] [address] | | | - LABORATORY | | [...] + | [facility] | [address] | [place], [place] | [phone] | | [facility] | | [address] | | | - LABORATORY | | | | + + + + + | [facility] | [address] | [place], [place] | | | [facility] | | [address] [place] [address] | | | - LABORATORY | | [...] - 1.030 | [facility] | | | [place], | | | [facility] | | [...] + | [facility] | [address] | [place] | [phone] | | [facility] | | [address] | | | - LABORATORY | | | | + + + + + | [facility] | [address] | [place], [place] | | | [facility] | | [address] | | | - LABORATORY | | | | + + + + + documented in this encounter Visit Diagnoses Not on filedocumented in this encounter"
--- OUTSIDE RECORDS SUMMARY | ~2020-03-26 | XMS | Encounter Summary ---
Demographics + + + | Address | [address] | | | [place] [address] | + + + | Home Phone [...] | Author | [facility] | | | and [place] | + + + | Organization | [facility] | | | and [place] | [...] [place] | | | | | [address] | | + + + + + | Floyd Herndon | ECON | NA | | | | | NA, | | + + + + + Care Team Providers + +------+ + | Care Director Women Name | Role | Phone | + [...] Description | +--------+--------+ + + + | 05/11/ | Refill | [facility] [place] [facility] | Beltran Fields, | Medication Refill | | 2013 | | MEDICINE [facility] | [address] [place] [address] | | | | | [facility] | [address] [place], | | | | | [place] [address] | [place] [address] | | | | | [phone] | [phone] | | | | | | | [...]
--- OUTSIDE RECORDS SUMMARY | ~2020-03-26 | XMS | Encounter Summary ---
Demographics + + + | Address | [address] | | | [place] [address] | + + + | Home Phone | | + + + | Preferred Language | Unknown | + + + | Marital Status | | + + + | Denominational Affiliation | 1009 | + + + | Race | Unknown | + + + | Ethnic Group | Unknown | + + + Author + + + | Author | [facility] | | | and [place] | + + + | Organization | [facility] | | | and [...] [place] | | | | | [address] | | + + + + + | Floyd Herndon | ECON | NA | | | | | NA, | | + + + + + Care Team Providers + +------+ + | Care Auto Wash Buffer Name | Role | Phone | + +------+ + PCP | Unavailable | + +------+ + Encounter Details +--------+ + + + + | Date | Type | Department | Care Team | Description | +--------+ + + + + | 03/05/ | Hospital | [facility] | Navid Main MD | | | 2007 | Encounter | MED CTR GENERIC OP | [address] | | | | | CONV DEPT [address] | [address] [place], [place] | | | | | [place], | [address] | | | | | [place] [address] | | | | | | [phone] | | | +--------+ + + + [...]
--- OUTSIDE RECORDS SUMMARY | ~2020-03-26 | XMS | Encounter Summary ---
Demographics + + + | Address | [address] | | | [place] [address] | + + + | Home Phone [...] | Author | [facility] | | | and [place] | + + + | Organization | [facility] | | | and [place] [...] [place] | | | | | [address] | | + + + + + | Floyd Herndon | ECON | NA | | | | | NA, | | + + + + + Care Team Providers + +------+ + | Care Data Center Technician Name | Role | Phone | + +------+ + PCP | Unavailable | + +------+ + Encounter Details +--------+ + + + + | Date | Type | Department | Care Team | Description | +--------+ + + + + | 10/19/ | Hospital | [facility] | Sridhar Corona | | | 2000 | Encounter | MED CTR SLEEP | MD Juan C [address] | | | | | CENTER [address] | [address] [place] | | | | | [place], [place] | [place] [address] | | | | | [address] | [phone] | | | | | [phone] | | | +--------+ + + + [...]
--- OUTSIDE RECORDS SUMMARY | ~2020-03-26 | XMS | Encounter Summary ---
Demographics + + + | Address | [address] | | | [place] [address] | + + + | Home Phone [...] | Author | [facility] | | | and [place] | + + + | Organization | [facility] | [...] [place] | | | | | [address] | | + + + + + | Floyd Herndon | ECON | NA | | | | | NA, | | + + + + + Care Team Providers + +------+ + | Care Graphics Software Engineer Name | Role | Phone [...] | 03/02/ | Telephone | [facility] [place] [facility] | Beltran Fields, | Other | | 2012 | | MEDICINE [place] | [address] | | | | | [address] | [place] [address] [place], | | | | | [place] | [place] [address] | | | | | [address] | [phone] | | | | | [phone] | | | +--------+ + + + [...]
--- OUTSIDE RECORDS SUMMARY | ~2020-03-26 | XMS | Encounter Summary ---
Demographics + + + | Address | [address] | | | [place] [address] | + + + | Home Phone [...] Author | [facility] | | | and [place] | + + + | Organization | [facility] | | | and [...] [place] | | | | | [address] | | + + + + + | Floyd Herndon | ECON | NA | | | | | NA, | | + + + + + Care Team Providers + +------+ + | Care Packaging Operator Name | Role | Phone | [...] [place] | | | | | [address] | [address] | | | | | [phone] | | | +--------+ + + + [...] - 1.030 | [facility] | | | [place], | | | [facility] | | [...] | | Urine | | | [facility] | | | | | | MEDICAL [...] [address] | [place] | | | [facility] | | [address] | | | - LABORATORY | | | | + + + + + documented in this encounter Visit Diagnoses Not on filedocumented in this encounter"
--- OUTSIDE RECORDS SUMMARY | ~2020-03-26 | XMS | Encounter Summary ---
Demographics + + + | Address | [address] | | | [place] [address] | + + + | Home Phone [...] | Author | [facility] | | | and [place] | + + + | Organization | [facility] | | [...] [place] | | | | | [address] | | + + + + + | Floyd Herndon | ECON | NA | | | | | NA, | | + + + + + Care Team Providers + +------+ + | Care Grades 9 Thru 12 Visiting Teacher Name | Role | Phone | [...] | 01/28/ | Refill | [facility] [place] [facility] | Beltran Fields, | Medication Refill | | 2015 | | MEDICINE [facility] All | [address] [place] [address] | | | | | [facility] | [place] [address] [place], | | | | | [place] [address] | [place] [address] | | | | | [phone] | [phone] | | | | | | | [...]
--- OUTSIDE RECORDS SUMMARY | ~2020-03-26 | XMS | Encounter Summary ---
Demographics + + + | Address | [address] | | | [place] [address] | + + + | Home Phone [...] Author | [facility] | | | and [place] | + + + | Organization | [facility] | | [...] [place] | | | | | [address] | | + + + + + | Floyd Herndon | ECON | NA | | | | | NA, | | + + + + + Care Team Providers + +------+ + | Care Egg Processor Name | Role | Phone | + +------+ + | Beltran Fields MD | PCP | | + +------+ + Encounter Details +--------+ + + + + | Date | Type | Department | Care Team | Description | +--------+ + + + + | 11/22/ | Orders Only | [facility] [place] [facility] | Beltran Fields, | Anemia (Primary Dx); | | 2015 | | MEDICINE [address] | [address] | Hyperlipidemia | | | | Street [place] | [place] [address] [place], | | | | | [place] [address] | [place] [address] | | | | | [phone] | [phone] | | | | | | | [...] | | + +------+--------+ + + | Comprehensive | Lab | Routin | Anemia | 1 Occurrences | | Metabolic Panel | | e | | starting 11/22/2014 | | | | | | until 11/22/2015 | + +------+--------+ + + | CBC with | Lab | Routin | Anemia | 1 Occurrences | | Differential | | e | | starting 11/22/2014 | | | | | | until 11/22/2015 | + +------+--------+ + + | Lipid Panel | Lab | Routin | Hyperlipidemia | 1 Occurrences | | | | e | | starting 11/22/2014 | | | | | | until 11/22/2015 | + +------+--------+ + + documented as of this encounter Visit Diagnoses + + | Diagnosis | + + | Anemia - Primary Anemia, unspecified | + + | Hyperlipidemia Other and unspecified hyperlipidemia | + + documented in this encounter"
--- OUTSIDE RECORDS SUMMARY | ~2020-03-26 | XMS | Encounter Summary ---
Demographics + + + | Address | [address] | | | [place] [address] | + + + | Home Phone [...] | [facility] | | | and [place] | + + + | Organization | [facility] | | [...] [place] | | | | | [address] | | + + + + + | Floyd Herndon | ECON | NA | | | | | NA, | | + + + + + Care Team Providers + +------+ + | Care Foil Spinner Name | Role | Phone | + [...] | 12/24/ | Refill | [facility] [place] [facility] | Beltran Fields, | Medication Refill | | 2019 | | MEDICINE [facility] All | [address] | | | | | [place] | [address] [place], | | | | | [place] [address] | [place] [address] | | | | | [phone] | [phone] | | | | | | | [...]
--- OUTSIDE RECORDS SUMMARY | ~2020-03-26 | XMS | Encounter Summary ---
Demographics + + + | Address | [address] | | | [place] [address] | + + + | Home Phone [...] + | Author | [facility] | | | and [place] | + + + | Organization | [facility] | | | and [...] [place] | | | | | [address] | | + + + + + | Floyd Herndon | ECON | NA | | | | | NA, | | + + + + + Care Team Providers + +------+ + | Care Perlite Grinder Name | Role | Phone | + [...] Refill | | 2019 | | MEDICINE [place] | [address] | | | | | [address] | [address] [place], | | | | | [place] | [place] [address] | | | | | [address] | [phone] | | | | | [phone] | | | +--------+--------+ + + + [...]
--- OUTSIDE RECORDS SUMMARY | ~2020-03-26 | XMS | Encounter Summary ---
Demographics + + + | Address | [address] | | | [place] [address] | + + + | Home Phone | | + + + | Preferred Language | Unknown | + + + | Marital Status | | + + + | Orthodoxy Affiliation | 1009 | + + + | Race | Unknown | + + + | Ethnic Group | Unknown | + + + Author + + + | Author | [facility] | | | and [place] | + + + | Organization | [facility] | | | and [...] [place], [place] | | | | | [address] | | + + + + + | Floyd Herndon | ECON | NA | | | | | NA, | | + + + + + Care Team Providers + +------+ + | Care Psychotherapist Social Worker Name | Role | Phone | [...] [address]VE | appt) | | | | [place] | [place] [facility] [place] | | | | | [address] | [address] | | | | | [phone] | | | +--------+ + + + [...]
--- OUTSIDE RECORDS SUMMARY | ~2020-03-26 | XMS | Encounter Summary ---
Demographics + + + | Address | [address] | | | [place] [address] | + + + | Home Phone | | + + + | Preferred Language | Unknown | + + + | Marital Status | | + + + | Pentecostalism Affiliation | 1009 | + + + | Race | Unknown | + + + | Ethnic Group | Unknown | + + + Author + + + | Author | [facility] | | | and [place] | + + + | Organization | [facility] | | | and [...] [place] | | | | | [address] | | + + + + + | Floyd Herndon | ECON | NA | | | | | NA, | | + + + + + Care Team Providers + +------+ + | Care Process Coach Name | Role | Phone | [...] | 02/23/ | Refill | [facility] [place] [facility] | Beltran Fields, | Medication Refill | | 2019 | | MEDICINE [place] | [address] | | | | | [address] | [address] [place], | | | | | [place] | [place] [address] | | | | | [address] | [phone] | | | | | [phone] | | | +--------+--------+ + + + [...]
--- OUTSIDE RECORDS SUMMARY | ~2020-03-26 | XMS | Encounter Summary ---
Demographics + + + | Address | [address] | | | [place] [address] | + + + | Home Phone | | + + + | Preferred Language | Unknown | + + + | Marital Status | | + + + | Quaker Affiliation | 1009 | + + + | Race | Unknown | + + + | Ethnic Group | Unknown | + + + Author + + + | Author | [facility] | | | and [place] | + + + | Organization | [facility] | | | and [place] [...] [place] | | | | | [address] | | + + + + + | Floyd Herndon | ECON | NA | | | | | NA, | | + + + + + Care Team Providers + +------+ + | Care Home Stereo Equipment Installer Name | Role | Phone | + +------+ + | Beltran Fields MD | PCP | | + +------+ + Encounter Details +--------+ + + + + | Date | Type | Department | Care Team | Description | +--------+ + + + + | 10/30/ | Abstract | [facility] [place] [facility] | Jordin Padron, | Preventative health | | 2013 | | [address] | MD [address] | care (Primary Dx) | | | | [place] | [place] | | | | | [address] | [address] | | | | | [phone] | | | +--------+ + + + [...] + | PSA, DIAGNOSTIC | Routin | 10/27/2013 | | Results for this | | | e | | | procedure are in the | | | | | | results section. | + +--------+ + + + documented in this encounter Results PSA, Diagnostic (10/27/2013) + + + + + + | Component | Value | Ref Range | Performed | Pathologist | | | | | At | Signature | + + + + + + | PSA, Total | 12.91Comment: Drawn @ | | [facility] | | | | [facility] | | | | + + + + + + + + | Specimen | + + | Blood specimen | | (specimen) | + + + +---------+ + + | Performing | Address | City/State/Zipcode | Phone Number | | Organization | | | | + +---------+ + + | [facility] | | | | + +---------+ + + documented in this encounter Visit Diagnoses + + | Diagnosis | + + | Preventative health care - Primary Routine general medical examination at a [facility] | | care facility | + + documented in this encounter"
--- OUTSIDE RECORDS SUMMARY | ~2020-03-26 | XMS | Encounter Summary ---
Demographics + + + | Address | [address] | | | [place] [address] | + + + | Home Phone [...] Author | [facility] | | | and [place] | + + + | Organization | [facility] | | | [...] [place] | | | | | [address] | | + + + + + | Floyd Herndon | ECON | NA | | | | | NA, | | + + + + + Care Team Providers + +------+ + | Care Electric Meter Reader Name | Role | Phone | + +------+ + | Beltran Fields MD | PCP | | + +------+ + Encounter Details +--------+ + + + + | Date | Type | Department | Care Team | Description | +--------+ + + + + | 03/24/ | Hospital | [facility] | Beltran Fields, | IGT (impaired | | 2013 | Encounter | MED CTR LABORATORY | [address] | glucose tolerance); | | | | [address] [place] | [place] [address] [place], | Other nonspecific | | | | [place], [place] | [place] [address] | finding on | | | | [address] | [phone] | examination of urine | | | | [phone] | | | +--------+ + + + [...] + + + +---------+ + + | Taylor-3 Fatty | two capsules by | | [...] + | [facility] | [address] | [place], [place] | [phone] | | [facility] | | [address] | | | - LABORATORY | | | | + + + + + | [facility] | [address] | [place], [place] | | | [facility] | | [address], [facility] | | | - LABORATORY [...] - 1.030 | [facility] | | | [place], | | | [facility] | | [...] + | [facility] | [address] | [place], [place] | [phone] | | [facility] | | [address] | | | - LABORATORY | | | | + + + + + | [facility] | [address] | [place], [place] | | | [facility] | | [id number] [place] [address] | | | - LABORATORY | | [...] + | [facility] | [address] | [place], [place] | [phone] | | [facility] | | [address] | | | - LABORATORY | | | | + + + + + | [facility] | [address] | [place] | | | [facility] | | [address] [place] [address] | | | - LABORATORY | | [...] + | [facility] | [address] | [place] | [phone] | | [facility] | | [address] | | | - LABORATORY | | | | + + + + + | [facility] | [address] | [place], [place] | | | [facility] | | [id number] | | | - LABORATORY | | | | + + + + + documented in this encounter Visit Diagnoses + + | Diagnosis | + + | IGT (impaired glucose tolerance) Impaired glucose tolerance test | + + | Other nonspecific finding on examination of urine | + + documented in this encounter"
--- OUTSIDE RECORDS SUMMARY | ~2020-03-26 | XMS | Encounter Summary ---
Demographics + + + | Address | [address] | | | [place] [address] | + + + | Home Phone | | + + + | Preferred Language | Unknown | + + + | Marital Status | | + + + | Mu-Ism Affiliation | 1009 | + + + | Race | Unknown | + + + | Ethnic Group | Unknown | + + + Author + + + | Author | [facility] | | | and [place] | + + + | Organization | [facility] [...] [place] | | | | | [address] | | + + + + + | Floyd Herndon | ECON | NA | | | | | NA, | | + + + + + Care Team Providers + +------+ + | Care Compensation/Benefits Specialist Name | Role | Phone | + +------+ + PCP | Unavailable | + +------+ + Encounter Details +--------+ + + + + | Date | Type | Department | Care Team | Description | +--------+ + + + + | 07/09/ | [facility] | | | [facility] | Encounter | MED CTR XRAY [address] | | | | | | [address] | | | | | | [place] [address] | | | | | | [phone] | | | +--------+ + + + [...]
--- OUTSIDE RECORDS SUMMARY | ~2020-03-26 | XMS | Clinical Summary ---
Demographics + + + | Address | [address] | | | [place] [address] | + + + | Home Phone | | + + + | Preferred Language | Unknown | + + + | Marital Status | | + + + | Sabianism Affiliation | Unknown | + + + [...] [place] | | | | | [address] | | + + + + + Care Team Providers + +------+ + | Care Dough Puncher Name | Role | Phone | + +------+ + PCP | Unavailable | + +------+ + Source Comments [facility] Allergies Not on File Medications Not on [...] | + + Last Filed Vital Signs Not on file Plan of Treatment + + + + + | Health Maintenance | Due Date | Last Done | Comments | + + + + + | Pneumococcal | | | | | vaccination (1 of 2 | 1 | | | | - PCV13) | | | | + + + + + | Influenza (Flu) | | | | | vaccination (#1) | 9 | | | + + + + + Results Not on filefrom Last 3 [...] +--------+ +--------+-------+---------+--------+ | [facility] | [facility]I | [id number] | | | | Indemn | | | SE | x | 013-Pr | | | ity | [...] | Self | [birth year] | [address] | | | al/Fam | | 1945 | [phone] | [place] [address] | | | 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
--- OUTSIDE RECORDS SUMMARY | ~2020-03-26 | XMS | Encounter Summary ---
Demographics + + + | Address | [address] | | | [place] [address] | + + + | Home Phone [...] | Author | [facility] | | | and [place] | + + + | Organization | [facility] [...] [place] | | | | | [address] | | + + + + + | Floyd Herndon | ECON | NA | | | | | NA, | | + + + + + Care Team Providers + +------+ + | Care Mortar Man Name | Role | Phone | + [...] | 06/15/ | Refill | [facility] [place] [facility] | Beltran Fields, | Medication Refill | | 2012 | | MEDICINE [facility] All | [address] [place] [address] | | | | | [facility] | [address] [place] [place], | | | | | [place] [address] | [place] [address] | | | | | [phone] | [phone] | | | | | | | [...]
--- OUTSIDE RECORDS SUMMARY | ~2020-03-26 | XMS | Encounter Summary ---
Demographics + + + | Address | [address] | | | [place] [address] | + + + | Home Phone | | + + + | Preferred Language | Unknown | + + + | Marital Status | | + + + | Sikhism Affiliation | 1009 | + + + | Race | Unknown | + + + | Ethnic Group | Unknown | + + + Author + + + | Author | [facility] | | | and [place] | + + + | Organization | [facility] | | | and [...] [place] | | | | | [address] | | + + + + + | Floyd Herndon | ECON | NA | | | | | NA, | | + + + + + Care Team Providers + +------+ + | Care Diamond Die Maker Name | Role | Phone | [...] [place] | | | | | [address] | [address] | | | | | [phone] | | | +--------+ + + + [...] [address] | [place] | [phone] | | [facility] | | [address], [facility] | | | - [...] + | Drawn at [facility] in [place] | + + + +---------+ + + [...]
--- OUTSIDE RECORDS SUMMARY | ~2020-03-26 | XMS | Encounter Summary ---
Demographics + + + | Address | [address] | | | [place] [address] | + + + | Home Phone [...] | Author | [facility] | | | and [place] | + + + | Organization | [facility] [...] [place], [place] | | | | | [address] | | + + + + + | Floyd Herndon | ECON | NA | | | | | NA, | | + + + + + Care Team Providers + +------+ + | Care Precision Agriculture Specialist Name | Role | Phone | [...] | | | | | neoplasms, | [place] | [address] | | | | | colon | [address] | Phone: | | | | | Procedures | Phone: | [phone] | | | | | 03/15 notes | [phone] | Fax: | | | | | | Fax: | [phone] | | | | | | [phone] | | +--------+ + + + + + Reason for Visit + + + | Reason | Comments | + + + | Medicare Wellness | | + + + Encounter Details +--------+---------+ + + + | Date | Type | Department | Care Team | Description | +--------+---------+ + + + | 02/08/ | Office | [facility] | Beltran Fields, | Essential | | 2018 | Visit | MEDICINE [address] | [address] | hypertension, benign | | | | Street [place] | [place] [address] [place], | (Primary Dx); | | | | [place] [address] | [place] [address] | Status post | | | | [phone] | [phone] | prostatectomy; Type | | | | [...] Mom 93 dementia Social History: Born in [place], [place] 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 He is . 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 He lives in [place]. 9 living Grandchildren. Review of Systems [...] PDTdocumented in this encounter Plan of Treatment + [...]
--- OUTSIDE RECORDS SUMMARY | ~2020-03-26 | XMS | Encounter Summary ---
Demographics + + + | Address | [address] | | | [place] [address] | + + + | Home Phone | | + + + | Preferred Language | Unknown | + + + | Marital Status | | + + + | Muslim Affiliation | 1009 | + + + | Race | Unknown | + + + | Ethnic Group | Unknown | + + + Author + + + | Author | [facility] | | | and [place] | + + + | Organization | [facility] | | | and [place] | + + + | Address | Unknown | + + + | Phone | Unavailable | + + + Support + + + + + | Name | Relationship | Address | Phone | + + + + + | Yuliet Crow | ECON | [address] | | | | | [place] | | | | | [address] | | + + + + + | Floyd Herndon | ECON | NA | | | | | NA, | | + + + + + Care Team Providers + +------+ + | Care Thermometer Production Worker Name | Role | Phone | + +------+ + | Beltran Fields MD | PCP | | + +------+ + Encounter Details +--------+ + + + + | Date | Type | Department | Care Team | Description | +--------+ + + + + | 07/26/ | Abstract | [facility] [place] [facility] | Beltran Fields, | | | 2013 | | [facility] [place] | [address] | | | | | [address] | [place] [address] [place], | | | | | [place] | [place] [address] | | | | | [address] | [phone] | | | | | [phone] | | | +--------+ + + + [...]
--- OUTSIDE RECORDS SUMMARY | ~2020-03-26 | XMS | Encounter Summary ---
Demographics + + + | Address | [address] | | | [place] [address] | + + + | Home Phone [...] Author | [facility] | | | and [place] | + + + | Organization | [facility] | | | and [place] [...] [place] | | | | | [address] | | + + + + + | Floyd Herndon | ECON | NA | | | | | NA, | | + + + + + Care Team Providers + +------+ + | Care Manager Radio Name | Role | Phone | + +------+ + PCP | Unavailable | + +------+ + Encounter Details +--------+ + + + + | Date | Type | Department | Care Team | Description | +--------+ + + + + | 09/16/ | Hospital | [facility] | | | | 2005 - | Encounter | MED CTR GENERIC IP | | | | | | CONV DEPT [address] | | | | 09/18/ | | [place], | | | | 2005 | | [place] [address] | | | | | | [phone] | | | +--------+ + + + [...]
--- OUTSIDE RECORDS SUMMARY | ~2020-03-26 | XMS | Encounter Summary ---
Demographics + + + | Address | [address] | | | [place] [address] | + + + | Home Phone | | + + + | Preferred Language | Unknown | + + + | Marital Status | | + + + | Restorationism Affiliation | 1009 | + + + | Race | Unknown | + + + | Ethnic Group | Unknown | + + + Author + + + | Author | [facility] | | | and [place] | + + + | Organization | [facility] | [...] [place] | | | | | [address] | | + + + + + | Floyd Herndon | ECON | NA | | | | | NA, | | + + + + + Care Team Providers + +------+ + | Care Teacher Of The Visually Impaired Name | Role | Phone | + [...] | 02/11/ | Refill | [facility] [place] [facility] | Beltran Fields, | Medication Refill | | 2014 | | MEDICINE [facility] All | [address] [place] [address] | | | | | [facility] | [address] [place], | | | | | [place] [address] | [place] [address] | | | | | [phone] | [phone] | | | | | | | [...]
--- OUTSIDE RECORDS SUMMARY | ~2020-03-26 | XMS | Encounter Summary ---
Demographics + + + | Address | [address] | | | [place] [address] | + + + | Home Phone [...] | Author | [facility] | | | and [place] | + + + | Organization | [facility] | | | and [place] [...] [place] | | | | | [address] | | + + + + + | Floyd Herndon | ECON | NA | | | | | NA, | | + + + + + Care Team Providers + +------+ + | Care Avionics Technician Name | Role | Phone | [...] | 02/10/ | Refill | [facility] [place] [facility] | Beltran Fields, | Medication Refill | | 2018 | | MEDICINE [facility] All | [address] | | | | | [place] | [place] [address] [place], | | | | | [place] [address] | [place] [address] | | | | | [phone] | [phone] | | | | | | | [...]
--- OUTSIDE RECORDS SUMMARY | ~2020-03-26 | XMS | Encounter Summary ---
Demographics + + + | Address | [address] | | | [place] [address] | + + + | Home Phone [...] Author | [facility] | | | and [place] | + + + | Organization | [facility] | | | and [...] [place] | | | | | [address] | | + + + + + | Floyd Herndon | ECON | NA | | | | | NA, | | + + + + + Care Team Providers + +------+ + | Care Editor At Large Name | Role | Phone | + [...] Refill | | 2016 | | MEDICINE [facility] All | [address] [place] [address] | | | | | [place] | [address] [place], | | | | | [place] [address] | [place] [address] | | | | | [phone] | [phone] | | | | | | | [...]
--- OUTSIDE RECORDS SUMMARY | ~2020-03-26 | XMS | Encounter Summary ---
Demographics + + + | Address | [address] | | | [place] [address] | + + + | Home Phone | | + + + | Preferred Language | Unknown | + + + | Marital Status | | + + + | Worship Affiliation | [id number] | + + + | Race | Unknown | + + + | Ethnic Group | Unknown | + + + Author + + + | Author | [facility] | | | and [place] | + + + | Organization | [facility] | | | and [place] [...] [place] | | | | | [address] | | + + + + + | Floyd Herndon | ECON | NA | | | | | NA, | | + + + + + Care Team Providers + +------+ + | Care Soloist Dancer Name | Role | Phone | + [...] + + | 11/13/ | Telephone | [facility] | Jordin Padron, | Results | | 2012 | | [address] | MD [address] | | | | | [place] | [place] | | | | | [address] | [address] | | | | | [phone] | | | +--------+ + + + [...]
--- OUTSIDE RECORDS SUMMARY | ~2020-03-26 | XMS | Encounter Summary ---
Demographics + + + | Address | [address] | | | [place] [address] | + + + | Home Phone [...] Author | [facility] | | | and [place] | + + + | Organization | [facility] [...] [place] | | | | | [address] | | + + + + + | Floyd Herndon | ECON | NA | | | | | NA, | | + + + + + Care Team Providers + +------+ + | Care Running Specialist Name | Role | Phone | [...] | obstruction (Primary | | | | [place], [place] | [place], [place] | Dx) | | | | [address] | [address] | | | | | [phone] | | | +--------+ + + + [...]
--- OUTSIDE RECORDS SUMMARY | ~2020-03-26 | XMS | Encounter Summary ---
Demographics + + + | Address | [address] | | | [place] [address] | + + + | Home Phone [...] + + | Author | [facility] | | | and [place] | + + + | Organization | [facility] | | | and [place] [...] [place] | | | | | [address] | | + + + + + | Floyd Herndon | ECON | NA | | | | | NA, | | + + + + + Care Team Providers + +------+ + | Care Gate Attendant Name | Role | Phone | [...] [place], | | | | | [place] [address] | [place] [address] | | | | | [phone] | [phone] | | | | | | | [...]
--- OUTSIDE RECORDS SUMMARY | ~2020-03-26 | XMS | Encounter Summary ---
Demographics + + + | Address | [address] | | | [place] [address] | + + + | Home Phone | | + + + | Preferred Language | Unknown | + + + | Marital Status | | + + + | Yazdanism Affiliation | 1009 | + + + | Race | Unknown | + + + | Ethnic Group | Unknown | + + + Author + + + | Author | [facility] | | | and [place] | + + + | Organization | [facility] | | | and [place] [...] [place] | | | | | [address] | | + + + + + | Floyd Herndon | ECON | NA | | | | | NA, | | + + + + + Care Team Providers + +------+ + | Care Motion And Time Study Teacher Name | Role | Phone | [...] Description | +--------+--------+ + + + | 01/31/ | Refill | [facility] [place] [facility] | Beltran Fields, | Medication Refill | | 2012 | | MEDICINE [place] | [address] | | | | | [address] | [address] [place], | | | | | [place] | [place] [address] | | | | | [address] | [phone] | | | | | [phone] | | | +--------+--------+ + + + [...]
--- OUTSIDE RECORDS SUMMARY | ~2020-03-26 | XMS | Encounter Summary ---
Demographics + + + | Address | [address] | | | [place] [address] | + + + | Home Phone [...] | Author | [facility] | | | and [place] | + + + | Organization | [facility] | | | and [...] [place] | | | | | [address] | | + + + + + | Floyd Herndon | ECON | NA | | | | | NA, | | + + + + + Care Team Providers + +------+ + | Care Foil Stamp Operator Name | Role | Phone | [...] | 12/10/ | Telephone | [facility] [place] [facility] | Beltran Fields, | Other (Iron | | 2016 | | MEDICINE [address] | [address] | Supplement) | | | | [place] | [address] [place], | | | | | [place] [address] | [place] [address] | | | | | [phone] | [phone] | | | | | | | [...]
--- OUTSIDE RECORDS SUMMARY | ~2020-03-26 | XMS | Encounter Summary ---
Demographics + + + | Address | [address] | | | [place] [address] | + + + | Home Phone [...] | [facility] | | | and [place] | + + + | Organization | [facility] | | [...] [place] | | | | | [address] | | + + + + + | Floyd Herndon | ECON | NA | | | | | NA, | | + + + + + Care Team Providers + +------+ + | Care Beef Ribber Name | Role | Phone | + [...] Description | +--------+--------+ + + + | 11/18/ | Refill | [facility] [place] [facility] | Beltran Fields, | Medication Refill | | 2019 | | MEDICINE [facility] All | [address] | | | | | [place] | [address], | | | | | [place] [address] | [place] [address] | | | | | [phone] | [phone] | | | | | | | [...]
--- OUTSIDE RECORDS SUMMARY | ~2020-03-26 | XMS | Encounter Summary ---
Demographics + + + | Address | [address] | | | [place] [address] | + + + | Home Phone [...] + | Author | [facility] | | | and [place] | + + + | Organization | [facility] | | | [...] [place], [place] | | | | | [address] | | + + + + + | Floyd Herndon | ECON | NA | | | | | NA, | | + + + + + Care Team Providers + +------+ + | Care Wrapping Checker Name | Role | Phone | + [...] + | 04/25/ | Refill | [facility] | Beltran Fields, | Medication Refill; | | 2018 | | MEDICINE [address] | [address] | Medication Refill | | | | [facility] | [address] [place], | | | | | [place] [address] | [place] [address] | | | | | [phone] | [phone] | | | | | | | [...]
--- OUTSIDE RECORDS SUMMARY | ~2020-03-26 | XMS | Encounter Summary ---
Demographics + + + | Address | [address] | | | [place] [address] | + + + | Home Phone [...] | [facility] | | | and [place] | + + + | Organization | [facility] | | | [...] [place] | | | | | [address] | | + + + + + | Floyd Herndon | ECON | NA | | | | | NA, | | + + + + + Care Team Providers + +------+ + | Care Network Pricing Consultant Name | Role | Phone | + +------+ + | Beltran Fields MD | PCP | | + +------+ + Encounter Details +--------+ + + + + | Date | Type | Department | Care Team | Description | +--------+ + + + + | 11/14/ | Hospital | [facility] | Beltran Fields, | [place] | | 2015 | Encounter | [facility] | MD [address] | hypercholesterolemia | | | | [address] [place] | [place] [address] [place], | (Primary Dx); [place] | | | | [place], [place] | [place] [address] | deficiency anemia; | | | | [address] | [phone] | Hyperglycemia; [place] | | | | [phone] | | deficiency anemia, | | | [...] + + + +---------+ + + | [place]-3 Fatty | two capsules by | [...] + | [facility] | [address] | [place] | [phone] | | [facility] | | [address] | | | - LABORATORY | | [...] + | [facility] | [address] | [place] | [phone] | | [facility] | | [address] | | | - LABORATORY | | [...] | | | | | mg/dL | [facility] | | | | | | MEDICAL | | | | | | CENTER - | | | | | | LABORATORY | | + + + + + + | eGFR if not | >60Comment: GLOMERULAR | >=60 | [facility] | | | | FILTRATION | mL/min/1.73m2 | [facility] | | | [place] | RATE,ESTIMATED | | MEDICAL | | | | mL/min/1.03v7Tclr than | | CENTER - | | [...] | | | | | mg/dL | [facility] | | | | | | MEDICAL [...] + | [facility] | [address] | [place] | [phone] | | [facility] | | [address] | | | - LABORATORY | | [...] + | [facility] | [address] | [place] | [phone] | | [facility] | | [address] | | | - LABORATORY | | [...]
--- OUTSIDE RECORDS SUMMARY | ~2020-03-26 | XMS | Encounter Summary ---
Demographics + + + | Address | [address] | | | [place] [address] | + + + | Home Phone | | + + + | Preferred Language | Unknown | + + + | Marital Status | | + + + | Anabaptism Affiliation | 1009 | + + + | Race | Unknown | + + + | Ethnic Group | Unknown | + + + Author + + + | Author | [facility] | | | and [place] | + + + | Organization | [facility] | | | and [...] [place], [place] | | | | | [address] | | + + + + + | Floyd Herndon | ECON | NA | | | | | NA, | | + + + + + Care Team Providers + +------+ + | Care Truck And Transport Mechanic Name | Role | Phone | + +------+ + | Beltran Fields MD | PCP | | + +------+ + Reason for Visit + + + | Reason | Comments | + + + | Benign Prostatic | | | Hypertrophy | | + + + | Elevated PSA | | + + + Encounter Details +--------+---------+ + + + | Date | Type | Department | Care Team | Description | +--------+---------+ + + + | 12/10/ | Office | [facility] | Jordin Padron, | Weak urinary stream | | 2016 | Visit | [address] | MD [address] | (Primary Dx); Family | | | | [place] | [place] | history of prostate | | | | [address] | [address] | cancer; Erectile | | | | [phone] | | dysfunction due to | | | | | | arterial | | | | | | insufficiency; BPH | | | | | | (benign prostatic | | | | | | hypertrophy) with | | | | | | urinary obstruction | +--------+---------+ + + + Social History [...] + | Blood Pressure | 116/72 | 12/10/2015 12:59 PM | | | | | PST | | + + + + + | Pulse | 60 | 12/10/2015 12:59 PM | | | | | PST | | + + + + + | Temperature | - | - | | + + + + + | Respiratory Rate | 16 | 12/10/2015 12:59 PM | | | | | PST | | + + + + + | Oxygen Saturation | - | - | | + + + + + | Inhaled Oxygen | - | - | | | Concentration | | | | + + + + + | Weight | 122 kg (269 lb) | 12/10/2015 12:59 PM | | | | | PST | | + + + + + | Height | 177.8 cm (5' 10") | 12/10/2015 12:59 PM | | | | | PST | | + + + + + | Body Mass Index | 38.6 | 12/10/2015 12:59 PM | | | | | PST | | + + + + + documented in this encounter Progress Notes Jordin Padron MD - 12/10/2015 1:10 PM PSTFormatting of this note might be different fro m the original. Guy is a 70 y.o. male patient of Beltran Fields MD being seen today for evaluation of BPH and abnormal PSA. Dr. Thurman has history of marked prostatic hypertrophy, gross hematuria, abnormal PSA, and f amily history of prostate cancer. His recurrent gross hematuria and abnormal PSA prompted the performance of an open, simple prostatectomy by Dr. Yohan Brumfield on approximately 11/02/2014. Pathology was reported as alize ign. He had a follow-up cystoscopic examination by Dr. 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 He underwent a transurethral resection of bladder neck contra cture by Dr. Brumfield in mid April 2015. About 1 week later, he experienced a recurrence of gross hematuria, and Dr. Maguire perform cystoscopy with clot evacuation and fulguration of a single bleeder on 05/05/[address] [facility]. A younger brother was treated for prostate cancer in approximately 2011. Prostate biopsies in 2008 and 2011 were negative. Gland volume was estimated at 172 cc at biopsy on 04/18/2012 . He reports he continues do well. He states he has a fairly good force of urinary stream, a lthough slightly weaker than it was following his TURBNC procedure. He denies any urinary incontinence. He has nocturia 0. He has urinary frequency every 3 hours. He denies urinary tract infections. He denies any urinary incontinence. He does have long-standing history of erectile dysfunction. He has used Viagra and Levitra and Cialis in the past, which have not been satisfactory. Over [address] Thurman today, almost all in counseling regarding treatment options for erectile dysfunction. Other than joint swelling and chronic low back pain, 10 point review of systems today is ne gative. He does not smoke. Past Medical History He has a past [...] history that includes Tonsillectomy; Appendectomy (1987); Vasectomy; m eniscectomy (Left); Carpal tunnel release (Bilateral); laminectomy; Prostatectomy (11/02/14) ; and Cystoscopy (04/26/14 05/05/2014). Family History: His family history includes Prostate cancer in his father. Social History: He reports that he has never smoked. He has never used smokeless tobacco. He reports that h e drinks alcohol. He reports that he does not use illicit drugs. Allergies Allergen Reactions Diltiazem Hcl Rash Medications: Outpatient Encounter Prescriptions as of 12/10/2015 Medication Sig Dispense Refill allopurinol (ZYLOPRIM) 300 mg tablet Take 1 tablet by mouth Daily. 90 tablet 3 aspirin 325 mg EC tablet Take 325 mg by mouth Daily. atorvaSTATin (LIPITOR) 40 mg tablet Take 1 tablet by mouth Daily. 90 tablet 3 flecainide (TAMBOCOR) 100 mg tablet Take 1 tablet by mouth 2 times daily. 180 tablet 3 fluticasone (FLONASE) 50 mcg/nasal spray 2 sprays each nostril daily 16 g 5 hydrochlorothiazide 50 mg tablet Take 1 tablet [...] 1 tablet by mouth Daily. 30 tablet 10 multivitamin (THERAGRAN) per tablet one tablet by mouth daily niacin 500 MG CR capsule 4 capsules by mouth at bedtime [place]-3 Fatty Acids (EQL FISH OIL) 1000 MG CAPS two capsules by mouth daily Omeprazole Magnesium (PRILOSEC OTC PO) TBEC one tablet by mouth daily potassium chloride (POTASSIUM CHLORIDE SA) 20 mEq tablet One po qd 180 tablet 1 sildenafil (VIAGRA) 100 MG tablet Take 100 mg by mouth Daily as needed. tadalafil (CIALIS) 20 MG tablet Take one-half [...] sexual activity 10 tablet 0 tadalafil (CIALIS) 5 MG tablet Take 1 tablet by mouth prior to sexual activity 30 table t 1 UNCODED MEDICATION Diagnosis: Obstructive Sleep Apnea ICD-9: 327.23 Length of Need: 99 Months 1 Device 0 No facility-administered encounter medications on file as of 12/10/2015. REVIEW OF SYSTEMS: [] All Negative Constitutional [...] []Boils []Persistent itch []Other: Musculoskeletal: []Neck Pain [x]Joint swelling/pain [x]Back pain []Bone pain []Other: Respiratory: []Wheezing []Frequent cough []Shortness of breath []Other: Hematologic/Lymphatic: []Swollen glands []Blood clotting problems []Prior blood transfusions []Other: Psychologic: Are you generally satisfied with your life? Yes Do you feel severely depressed? no Have you considered suicide? no Other: Habits: Do you smoke? no [] Yes [x] No Patient advised to follow up with PCP regarding positive review of syste ms. AUA BPH SYMPTOM SCORE Not at all Less than 1 times in 5 Less than half the time About half the time More than half the time Almost always INCOMPLETE EMPTYING Over the past month, how often have you had the sensation of not empty ing your bladder completely after you finished urinating? [x] 0 [] 1 [] 2 [] 3 [] 4 [] 5 FREQUENCY Over the past month, how often have you had to urinate again less than 2 hours a fter you finished urinating? [x] 0 [] 1 [] 2 [] 3 [] 4 [] 5 INTERMITTENCY Over the past month, how often have you found you stopped and started again several times when you urinated? [] 0 [] 1 [] 2 [] 3 [x] 4 [] 5 URGE TO URINATE Over the past month, how often have you found it difficult to postpone uri nation? [x] 0 [] 1 [] 2 [] 3 [] 4 [] 5 WEAK STREAM Over the past month, how often have you had a weak urinary stream? [] 0 [] 1 [] 2 [] 3 [x] 4 [] 5 STRAINING Over the past month, how often have you had to push or strain to begin urination ? [x] 0 [] 1 [] 2 [] 3 [] 4 [] 5 None 1 time 2 times 3 times 4 times 5 or more times URINATING AT NIGHT Over the past month, how many times did you most typically get up to ur inated from the time you went to bed at night until the time you got up in the morning? [x] 0 [] 1 [] 2 [] 3 [] 4 [] 5 Symptom Score: Mild 1-7, Moderate 8-19, Severe 20-35 TOTAL: 8 BOTHER SCORE DUE TO URINARY SYMPTOMS Delighted Pleased Mostly Satisfied Mixed Mostly dissatisfied Unhappy Terrible BOTHERSOMENESS OF URINARY SYMPTOMS How would you feel if you had to live with your urinary condition the way it is now, no better, no worse, for the rest of your life? [] 0 [] 1 [x] 2 [] 3 [] 4 [] 5 [] 6 PHYSICAL EXAM Vitals: BP 116/72 mmHg | Pulse 60 | Resp 16 | Ht 1.778 m (5' 10") | Wt 122.018 kg (269 lb) | BMI 38.60 kg/m2 General: Awake, alert, in no acute distress. Speech is fluent. Appears to be stated age. Lungs: Normal respiratory effort, no wheezing, no stridor, no tachypnea. Back: No CVA tenderness. Abdomen: Soft, nontender, [...] nonerythematous. Phallus is normal in appearanc e. Rectal: No mass, normal sphincter tone. Prostate gland is surgically absent and nonpalpab le. No rectal masses appreciated. DIAGNOSTIC DATA: AUA symptom score today is 8. Lab Results Component Value Date CREA 1.07 11/14/2015 BUN 11 11/14/2015 NA 140 11/14/2015 K 4.0 11/14/2015 CL 103 11/14/2015 CO2 30 11/14/2015 Lab Results Component Value Date ALT 21 11/14/2015 AST 21 11/14/2015 ALKPHOS 93 11/14/2015 BILITOT 0.8 11/14/2015 PSA 12/06/2015 is 0.014. PSA 07/26/2014 is 10.65. PSA 05/08/2014 is 11.88. PSA 10/27/2013 is 12.91. PSA 10/20/2011 is 7.43. PSA 03/27/2010 is 8.75. PSA 05/31/2009 is 5.44. Urinalysis today is negative. Saturation needle biopsies of the prostate gland on approximately 09/22/[address] Brumfield w ere benign. Pathology from prostatectomy is reportedly benign. (per Dr Brumfield's note) PVR today is 61 cc. IMPRESSION: 1. Gross painless hematuria. Resolved status post prostatectomy 11/02/2014. 2. Marked prostatic hyperplasia. Resolved status post proctectomy 11/02/2014. Prostate g land volume was 172 cc on 04/28/2012. 3. Abnormal PSA. Resolved. 4. Family history of prostate cancer. 5. Mild obstructive voiding symptoms. AUA symptom score is only 8. 6. Erectile dysfunction. 7. History of bladder neck contracture. Treated with TURBNC by Dr. Brumfield approximately J 2014. PLAN: I discussed with Guy the recommendations of the [place] Preventive Services Task Fo rce to abandon all PSA testing. I advised that not all experts would agree with this recomm endation. We discussed that the current AUA guidelines would recommend offering prostate ca ncer screening with PSA testing between the ages of 55 and 69. We discussed the rationale f or these recommendations. We discussed the false positives associated with PSA testing. He elects to continue prostate cancer screening, and will follow-up in one year with a PVR, UA, and PSA level drawn prior to his follow-up visit. I discussed with Guy the various causes and treatments of erectile dysfunction. We discussed the use of phosphodiesterase inhibitor therapy (which he has failed) versus va cuum erection device versus Raymond versus penile self injection therapy versus a penile prosth esis. We discussed the potential side effects and complications associated with each form of ther apy. We discussed issues related to priapism. After a thorough discussion, he indicates th at he does not wish to pursue any of these treatment options at the current time. We discussed performing a repeat cystoscopic examination to rule out any recurrent bladder neck contracture, but since he is currently satisfied with his urinary symptoms and his urin taiwo stream is not too week, he elects continued observation. Patient instructed to resume usual and customary care with primary care provider. I asked Guy to notify me if there were any difficulties voiding, or UTI symptoms, or flan k pain, or for any questions or concerns whatsoever. This document was generated in part using voice recognition software. Although every effor t is made to edit the content, vascular surgeon errors may occur. documented in this encounter Plan of Treatment Not on filedocumented as of this encounter Procedures + +--------+ + + + | Procedure Name | Priori | Date/Time | Associated Diagnosis | Comments | | | ty | | | | + +--------+ + + + | POCT URINALYSIS, | Routin | 12/10/2015 | BPH (benign | Results for this | | AUTO WITH CONF | e | 12:57 PM | prostatic | procedure are in the | | | | PST | hypertrophy) with | results section. | | | | | urinary obstruction | | | | | | Weak urinary stream | | + +--------+ + + + documented in this encounter Results POCT Urinalysis Dipstick Automated (12/10/2015 12:57 PM PST) + + + + + [...] + + | Specific | 1.005 | 1.001 - 1.030 | | | | [place], | | | | | | UA, [...] + + + | Urobilinoge | 0.2 mg/dL | 0.2, Negative, | | | | [...] of urinary stream | + + | Family history of prostate cancer Family history of malignant neoplasm of prostate | + + | Erectile dysfunction due to arterial insufficiency Impotence of organic origin | + + | BPH (benign prostatic hypertrophy) with urinary obstruction Hypertrophy of prostate | | with urinary obstruction and other lower urinary tract symptoms (LUTS) | + + documented in this encounter
--- OUTSIDE RECORDS SUMMARY | ~2020-03-26 | XMS | Encounter Summary ---
Demographics + + + | Address | [address] | | | [place] [address] | + + + | Home Phone [...] | Author | [facility] | | | and [place] | + + + | Organization | [facility]and [...] [place] | | | | | [address] | | + + + + + | Floyd Herndon | ECON | NA | | | | | NA, | | + + + + + Care Team Providers + +------+ + | Care Railroad Car Repair Supervisor Name | Role | Phone | [...] + + | 05/14/ | Telephone | [facility] | Belrtan Fields, | Follow-up (follow up | | 2015 | | MEDICINE [facility] All | [address] | [address] | | | | Street [place] | [place] [address] [place], | 05/05/15 urinary | | | | [place] [address] | [place] [address] | retention, hematuria | | | | [phone] | [phone] | ) | | | | | [...]
--- OUTSIDE RECORDS SUMMARY | ~2020-03-26 | XMS | Encounter Summary ---
Demographics + + + | Address | [address] | | | [place] [address] | + + + | Home Phone | | + + + | Preferred Language | Unknown | + + + | Marital Status | | + + + | Religion Affiliation | 1009 | + + + | Race | Unknown | + + + | Ethnic Group | Unknown | + + + Author + + + | Author | [facility]and | | | and [place] | + + + | Organization | [facility] Anand | [...] [place] | | | | | [address] | | + + + + + | Floyd Herndon | ECON | NA | | | | | NA, | | + + + + + Care Team Providers + +------+ + | Care Supervisor [address] Name | Role | Phone | + +------+ + | Beltran Fields MD | PCP | | + +------+ + Encounter Details +--------+ + + + + | Date | Type | Department | Care Team | Description | +--------+ + + + + | 07/26/ | Abstract | [facility] [place] [facility] | Beltran Fields, | | | 2013 | | [place] | [address] | | | | | [address] | [place] [place], | | | | | [place] | [place] [address] | | | | | [address] | [phone] | | | | | [phone] | | | +--------+ + + + [...]
--- OUTSIDE RECORDS SUMMARY | ~2020-03-26 | XMS | Encounter Summary ---
Demographics + + + | Address | [address] | | | [place] [address] | + + + | Home Phone [...] Author | [facility] | | | and [place] | + + + | Organization | [facility]and | | | and [...] [place] | | | | | [address] | | + + + + + | Floyd Herndon | ECON | NA | | | | | NA, | | + + + + + Care Team Providers + +------+ + | Care Air Transport Professionals Name | Role | Phone | + [...] SR | | | | | [address] [facility] | | | | | | [place], [place] | | | | | | [address] | | | | | | [phone] | | | +--------+ + + + [...]
--- OUTSIDE RECORDS SUMMARY | ~2020-03-26 | XMS | Encounter Summary ---
Demographics + + + | Address | [address] | | | [place] [address] | + + + | Home Phone [...] | Author | [facility] | | | and [place] | + + + | Organization | [facility]and | | | and [...] [place] | | | | | [address] | | + + + + + | Floyd Herndon | ECON | NA | | | | | NA, | | + + + + + Care Team Providers + +------+ + | Care Corporate Compliance Director Name | Role | Phone | [...] [place], | | | | | [place], [place] | [place] [address] | | | | | [address] | [phone] | | | | | [phone] | | | +--------+ + + + [...]
--- OUTSIDE RECORDS SUMMARY | ~2020-03-26 | XMS | Encounter Summary ---
Demographics + + + | Address | [address] | | | [place] [address] | + + + | Home Phone [...] Author | [facility] | | | and [place] | + + + | Organization | [facility]and | | | and [...] [place] | | | | | [address] | | + + + + + | Floyd Herndon | ECON | NA | | | | | NA, | | + + + + + Care Team Providers + +------+ + | Care Construction Trench Digger Name | Role | Phone | + [...] Refill | | 2013 | | MEDICINE [place] | [address] | | | | | [address] | [address] [place], | | | | | [place] | [place] [address] | | | | | [address] | [phone] | | | | | [phone] | | | +--------+--------+ + + + [...]
--- OUTSIDE RECORDS SUMMARY | ~2020-03-26 | XMS | Encounter Summary ---
Demographics + + + | Address | [address] | | | [place] [address] | + + + | Home Phone | | + + + | Preferred Language | Unknown | + + + | Marital Status | | + + + | Latter-Day Affiliation | 1009 | + + + | Race | Unknown | + + + | Ethnic Group | Unknown | + + + Author + + + | Author | [facility] | | | and [place] | + + + | Organization | [facility]and | | | and [...] [place] | | | | | [address] | | + + + + + | Floyd Herndon | ECON | NA | | | | | NA, | | + + + + + Care Team Providers + +------+ + | Care Training Representative Name | Role | Phone | [...] | 05/27/ | Refill | [facility] [place] [facility] | Beltran Fields, | Medication Refill | | 2016 | | MEDICINE [facility] All | [address] [place] [address] | | | | | [place] [address] | [place] [place], | | | | | [place] [address] | [place] [address] | | | | | [phone] | [phone] | | | | | | | [...]
--- OUTSIDE RECORDS SUMMARY | ~2020-03-26 | XMS | Encounter Summary ---
Demographics + + + | Address | [address] | | | [place] [address] | + + + | Home Phone [...] | Author | [facility] | | | and [place] | + + + | Organization | [facility]and | | | and [...] [place] | | | | | [address] | | + + + + + | Floyd Herndon | ECON | NA | | | | | NA, | | + + + + + Care Team Providers + +------+ + | Care Laceworker Name | Role | Phone | + [...] Refill | | 2012 | | MEDICINE [place] | [address] | | | | | [address] | [address] [place], | | | | | [place] | [place] [address] | | | | | [address] | [phone] | | | | | [phone] | | | +--------+--------+ + + + [...]
--- OUTSIDE RECORDS SUMMARY | ~2020-03-26 | XMS | Encounter Summary ---
Demographics + + + | Address | [address] | | | [place] [address] | + + + | Home Phone [...] Author | [facility]ad | | | and [place] | + + + | Organization | [facility] | | [...] [place] | | | | | [address] | | + + + + + | Floyd Herndon | ECON | NA | | | | | NA, | | + + + + + Care Team Providers + +------+ + | Care Boat Driver Name | Role | Phone | + +------+ + PCP | Unavailable | + +------+ + Encounter Details +--------+ + + + + | Date | Type | Department | Care Team | Description | +--------+ + + + + | 12/01/ | [facility] | | [facility] | Encounter | MED CTR XRAY [address] | | | | | | [address] | | | | | | [place] [address] | | | | | | [phone] | | | +--------+ + + + [...]
--- OUTSIDE RECORDS SUMMARY | ~2020-03-26 | XMS | Encounter Summary ---
Demographics + + + | Address | [address] | | | [place] [address] | + + + | Home Phone [...] Author | [facility] | | | and [place] | + + + | Organization | [facility]and | | | and [...] [place], [place] | | | | | [address] | | + + + + + | Floyd Herndon | ECON | NA | | | | | NA, | | + + + + + Care Team Providers + +------+ + | Care Forensic Chemist Name | Role | Phone | + [...] + + | 08/24/ | Refill | [facility] | Beltran Fields, | Medication Refill; | | 2018 | | MEDICINE [place] | [address] | Medication Refill | | | | [address] | [address] [place] [place], | | | | | [place] | [place] [address] | | | | | [address] | [phone] | | | | | [phone] | | | +--------+--------+ + + + [...]
--- OUTSIDE RECORDS SUMMARY | ~2020-03-26 | XMS | Encounter Summary ---
Demographics + + + | Address | [address] | | | [place] [address] | + + + | Home Phone [...] Author | [facility] | | | and [place] | + + + | Organization | [facility]and [...] [place] | | | | | [address] | | + + + + + | Floyd Herndon | ECON | NA | | | | | NA, | | + + + + + Care Team Providers + +------+ + | Care Brick Tester Name | Role | Phone | [...] | 10/29/ | Refill | [facility] | Beltran Fields, | Medication Refill | | 2016 | | MEDICINE [facility] | [address] [place] [address] | | | | | [place] | [address] [place], | | | | | [place] [address] | [place] [address] | | | | | [phone] | [phone] | | | | | | | [...]
--- OUTSIDE RECORDS SUMMARY | ~2020-03-26 | XMS | Encounter Summary ---
Demographics + + + | Address | [address] | | | [place] [address] | + + + | Home Phone [...] Author | [facility] | | | and [place] | + + + | Organization | [facility]and | | | and [place] [...] [place] | | | | | [address] | | + + + + + | Floyd Herndon | ECON | NA | | | | | NA, | | + + + + + Care Team Providers + +------+ + | Care Activated Sludge Attendant Name | Role | Phone | [...] | 08/21/ | Refill | [facility] [place] [facility] | Beltran Fields, | Medication Refill | | 2012 | | MEDICINE [facility] All | [address] [place] [address] | | | | | [facility] | [address] [place], | | | | | [place] [address] | [place] [address] | | | | | [phone] | [phone] | | | | | | | [...]
--- OUTSIDE RECORDS SUMMARY | ~2020-03-26 | XMS | Encounter Summary ---
Demographics + + + | Address | [address] | | | [place] [address] | + + + | Home Phone | | + + + | Preferred Language | Unknown | + + + | Marital Status | | + + + | Mandaeism Affiliation | 1009 | + + + | Race | Unknown | + + + | Ethnic Group | Unknown | + + + Author + + + | Author | [facility] | | | and [place] | + + + | Organization | [facility]and | | | and [...] [place] | | | | | [address] | | + + + + + | Floyd Herndon | ECON | NA | | | | | NA, | | + + + + + Care Team Providers + +------+ + | Care Chainstitch Tunnel Elastic Operator Name | Role | Phone | [...] | 07/09/ | Refill | [facility] | Beltran Fields, | Medication Refill | | 2016 | | MEDICINE [facility] | [address] [place] [address] | | | | | [place] [address] | [address] [place], | | | | | [place] [address] | [place] [address] | | | | | [phone] | [phone] | | | | | | | [...]
--- OUTSIDE RECORDS SUMMARY | ~2020-03-26 | XMS | Encounter Summary ---
Demographics + + + | Address | [address] | | | [place] [address] | + + + | Home Phone [...] Author | [facility] | | | and [place] | + + + | Organization | [facility]and | | | and [...] [place] | | | | | [address] | | + + + + + | Floyd Herndon | ECON | NA | | | | | NA, | | + + + + + Care Team Providers + +------+ + | Care Director Marketing Analytics Name | Role | Phone | + [...] + | 12/13/ | Telephone | [facility] | Beltran Fields, | Appointment | | 2018 | | MEDICINE [address] | [address] | | | | | [place] | [address] [place], | | | | | [place] [address] | [place] [address] | | | | | [phone] | [phone] | | | | | | | [...]
--- OUTSIDE RECORDS SUMMARY | ~2020-03-26 | XMS | Encounter Summary ---
Demographics + + + | Address | [address] | | | [place] [address] | + + + | Home Phone [...] | Author | [facility] | | | and [place] | + + + | Organization | [facility]and | [...] [place] | | | | | [address] | | + + + + + | Floyd Herndon | ECON | NA | | | | | NA, | | + + + + + Care Team Providers + +------+ + | Care Supervisor Tellers Name | Role | Phone | + [...] | | | | | [address] | | | | | | [place] | | | | | | [address] | | | | | | [phone] | | | +--------+ + + + [...]
--- OUTSIDE RECORDS SUMMARY | ~2020-03-26 | XMS | Encounter Summary ---
Demographics + + + | Address | [address] | | | [place] [address] | + + + | Home Phone [...] | Author | [facility] | | | and [place] | + + + | Organization | [facility] | | [...] [place] | | | | | [address] | | + + + + + | Floyd Herndon | ECON | NA | | | | | NA, | | + + + + + Care Team Providers + +------+ + | Care Cut And Print Machine Operator Name | Role | Phone [...] | 07/13/ | Refill | [facility] [place] [facility] | Beltran Fields, | Medication Refill | | 2013 | | MEDICINE [facility] | [address] | | | | | [facility] | [address] [place], | | | | | [place] [address] | [place] [address] | | | | | [phone] | [phone] | | | | | | | [...]
--- OUTSIDE RECORDS SUMMARY | ~2020-03-26 | XMS | Encounter Summary ---
Demographics + + + | Address | [address] | | | [place] [address] | + + + | Home Phone [...] + | Author | [facility] | | | and [place] | + + + | Organization | [facility] | | [...] [place], [place] | | | | | [address] | | + + + + + | Floyd Herndon | ECON | NA | | | | | NA, | | + + + + + Care Team Providers + +------+ + | Care Site Physician Name | Role | Phone | [...] Description | +--------+--------+ + + + | 12/05/ | Refill | [facility] | Beltran Fields, | Medication Refill; | | 2019 | | MEDICINE [place] | [address] | Medication Refill | | | | [address] | [address] [place], | | | | | [place] | [place] [address] | | | | | [address] | [phone] | | | | | [phone] | | | +--------+--------+ + + + [...]
--- OUTSIDE RECORDS SUMMARY | ~2020-03-26 | XMS | Encounter Summary ---
Demographics + + + | Address | [address] | | | [place] [address] | + + + | Home Phone [...] | [facility] | | | and [place] | + + + | Organization | [facility]and | | [...] [place] | | | | | [address] | | + + + + + | Floyd Herndon | ECON | NA | | | | | NA, | | + + + + + Care Team Providers + +------+ + | Care Engineering Professionals Name | Role | Phone | [...] [place] | | | | | [address] | [address] | | | | | [phone] | | | +--------+ + + + [...]
--- OUTSIDE RECORDS SUMMARY | ~2020-03-26 | XMS | Clinical Summary ---
Demographics + + + | Address | [address] | | | [place] [address] | + + + | Home Phone | | + + + | Preferred Language | Unknown | + + + | Marital Status | | + + + | Rastafari Affiliation | Unknown | + + + [...] [place] | | | | | [address] | | + + + + + Care Team Providers + +------+ + | Care Credit Relationship Manager Name | Role | Phone | + +------+ + PCP | Unavailable | + +------+ + Source Comments ENA is fully live on both [facility] and [facility] Allergies Not on File Medications Not [...] | Self | [birth year] | 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
--- OUTSIDE RECORDS SUMMARY | ~2020-03-26 | XMS | Encounter Summary ---
Demographics + + + | Address | [address] | | | [place] [address] | + + + | Home Phone | | + + + | Preferred Language | Unknown | + + + | Marital Status | | + + + | Christianity Affiliation | 1009 | + + + | Race | Unknown | + + + | Ethnic Group | Unknown | + + + Author + + + | Author | [facility] | | | and [place] | + + + | Organization | [facility] | [...] [place] | | | | | [address] | | + + + + + | Floyd Herndon | ECON | NA | | | | | NA, | | + + + + + Care Team Providers + +------+ + | Care Grocery Department Manager Name | Role | Phone | [...] | 10/16/ | Refill | [facility] [place] [facility] | Beltran Fields, | Medication Refill | | 2013 | | MEDICINE [facility] | [address] | | | | | [facility] | [address] [place], | | | | | [place] [address] | [place] [address] | | | | | [phone] | [phone] | | | | | | | [...]
--- OUTSIDE RECORDS SUMMARY | ~2020-03-26 | XMS | Encounter Summary ---
Demographics + + + | Address | [address] | | | [place] [address] | + + + | Home Phone [...] | Author | [facility] | | | and [place] | + + + | Organization | [facility] | | [...] [place] | | | | | [address] | | + + + + + | Floyd Herndon | ECON | NA | | | | | NA, | | + + + + + Care Team Providers + +------+ + | Care Process Specialist Name | Role | Phone | + +------+ + | Beltran Fields MD | PCP | | + +------+ + Encounter Details +--------+---------+ + + + | Date | Type | Department | Care Team | Description | +--------+---------+ + + + | 03/24/ | Office | [facility] [place] [facility] | Geronimo Iglesias PA | JEAN on CPAP (Primary | | 2012 | Visit | SLEEP DISORDER [address] | [address] | Dx) | | | | [address] [place] | [place], [place] | | | | | [place] [address] | [address] | | | | | [phone] | | | +--------+---------+ + + + [...] AM PDT March 24, 2013 Guy Thurman [address] [place] [address] [place] [address] Dear Guy: Thank you for enrolling in [facility]. Please follow the instructions below to view your [employer] online medical record. [facility] allows you to send secure messages to your doctor, view you r test results, renew your prescriptions, schedule appointments, and more. How Do I Sign Up? 1. In your Internet browser, go to [email or web address] 2. Click on the "Sign up with your activation code" button in the "New User?" box. This sachin l take you to the New Member Sign Up page. 3. Enter your [facility] activation code exactly as it appears below. You will not need to use this code after you sign up. If you do not sign up before the expiration date, you must req uest a new code through your [facility] participating clinic. [facility] Access Code: Not generated Current [facility] Status: Active 4. Fill in the last four digits of your Social Security Number (xxxx) and Date of (mm /dd/yyyy) and click Next. 5. Create a [facility] username. Your username cannot be changed, so think of one t hat is secure and easy to remember. 6. Create a [facility] password. You can change your password at any time. 7. Enter your security question and answer. This can be used at a later time if you forget your password. Click Next. 8. Enter your e-mail address. You will receive e-mail notification when new information is available in [facility]. 9. Click "Sign In". You may now view your medical record. Additional Information If you have questions, you can email [email or web address] or call [phone] to talk to our [facility] care team. Please remember, [facility] should NOT be used for urg ent needs. For all medical emergencies, call 141. Sincerely, TENNILLE Polk documented in this encounter Progress Notes Geronimo Iglesias PA - 03/24/2013 11:26 AM PDT Subjective: Patient ID: Guy Thurman is a 67 y.o. male. HPI last office visit was: 01/19/2011 date of polysomnography: 10/19/2001 AHI: 15.3 O2%: 87.8% Machine type: ResMed S9 with nasal mask obtained from: [facility] in [place], [place] pressure is: 8-16 cm 95%: 12.7 [...] coco base with [facility] in [place] twice per year to ensure that all medical suppli es are satisfactory. I will follow up again in 2 years, sooner prn. At that time we will reassess with all appr opiate paperwork. Fifteen minutes were spent pila-wo-iivu, with the majority of time spent in counseling. Geronimo Iglesias PA-C cc: Colton Fields MD Paola Chowdary - 2012 11:01 AM PDT 03/24/13 [address] Depression Inventory-II Depression Score 3 - Minimal depression Insomnia Severity Index Insomnia Severity Index 12 [place] Sleepiness Scale Sitting and reading 1 Watching [...] MCS 61.24 documented in this enc ounter Plan of Treatment Not on filedocumented as of this encounter Visit Diagnoses + + | Diagnosis | + + | JEAN on CPAP - Primary Obstructive sleep apnea (adult) (pediatric) | + + documented in this encounter
--- OUTSIDE RECORDS SUMMARY | ~2020-03-26 | XMS | Encounter Summary ---
Demographics + + + | Address | [address] | | | [place] [address] | + + + | Home Phone [...] [facility] | | | and [place] | + + + | Organization | [facility]and | | | and [place] | [...] [place] | | | | | [address] | | + + + + + | Floyd Herndon | ECON | NA | | | | | NA, | | + + + + + Care Team Providers + +------+ + | Care Chef & Owner Name | Role | Phone | + [...] + | 11/22/ | Office | [facility] | Beltran Fields, | Paroxysmal a-fib | | 2015 | Visit | MEDICINE [address] | [address] | (Primary Dx); | | | | [address] [place] | [place] [address] [place], | Essential | | | | [place] [address] | [place] [address] | hypertension, | | | | [phone] | [phone] | benign; | | | | | [...] Recent prostatectomy, BPH, Elevated PSA, Removed at [facility]. The surgery went otherwise fine. Performed by [...] per Cardiology Dr Niranjan Luevano MD in [place]. He underwent a st ressecho test this january that was normal. Hyperlipidemia, on niacin and zocor, denies muscle aches or weakness. compliant with the edications. This is unchanged. Past Medical History: [...] child and 3 stepchildren. He lives in [place]. 9 living Grandchildren. Review of Systems [...]
--- OUTSIDE RECORDS SUMMARY | ~2020-03-26 | XMS | Encounter Summary ---
Demographics + + + | Address | [address] | | | [place] [address] | + + + | Home Phone [...] | Author | [facility] | | | and [place] | + + + | Organization | [facility] | | | and [...] [place] | | | | | [address] | | + + + + + | Floyd Herndon | ECON | NA | | | | | NA, | | + + + + + Care Team Providers + +------+ + | Care Surgical Services Tech Name | Role | Phone | + [...] Refill | | 2012 | | MEDICINE [place] | [address] | | | | | [address] | [place] [address] [place], | | | | | [place] | [place] [address] | | | | | [address] | [phone] | | | | | [phone] | | | +--------+--------+ + + + [...]
--- OUTSIDE RECORDS SUMMARY | ~2020-03-26 | XMS | Encounter Summary ---
Demographics + + + | Address | [address] | | | [place] [address] | + + + | Home Phone [...] Author | [facility] | | | and [place] | + + + | Organization | [facility] [...] [place] | | | | | [address] | | + + + + + | Floyd Herndon | ECON | NA | | | | | NA, | | + + + + + Care Team Providers + +------+ + | Care Crate Icer Name | Role | Phone | + [...] Refill | | 2019 | | MEDICINE [place] | [address] | | | | | [address] | [address] [place], | | | | | [place] | [place] [address] | | | | | [address] | [phone] | | | | | [phone] | | | +--------+--------+ + + + [...]
--- OUTSIDE RECORDS SUMMARY | ~2020-03-26 | XMS | Encounter Summary ---
Demographics + + + | Address | [address] | | | [place] [address] | + + + | Home Phone [...] | [facility] | | | and [place] | + + + | Organization | [facility] | [...] [place] | | | | | [address] | | + + + + + | Floyd Herndon | ECON | NA | | | | | NA, | | + + + + + Care Team Providers + +------+ + | Care Light Equipment Operator Name | Role | Phone | [...] + + + + | 01/28/ | Telephone | [facility] [place] [facility] | Geronimo Iglesias PA | Other | | 2016 | | SLEEP DISORDER 401 | [address] | | | | | [address] [place] | [place] | | | | | [place] [address] | [address] | | | | | [phone] | | | +--------+ + + + [...]
--- OUTSIDE RECORDS SUMMARY | ~2020-03-26 | XMS | Encounter Summary ---
Demographics + + + | Address | [address] | | | [place] [address] | + + + | Home Phone [...] | Author | [facility] | | | and [place] | + + + | Organization | [facility] | [...] [place] | | | | | [address] | | + + + + + | Floyd Herndon | ECON | NA | | | | | NA, | | + + + + + Care Team Providers + +------+ + | Care Wafer Slicer Name | Role | Phone | + [...] Description | +--------+--------+ + + + | 01/10/ | Refill | [facility] [place] [facility] | Beltran Fields, | Medication Refill | | 2020 | | MEDICINE [place] | [address] | | | | | [address] | [address] [place], | | | | | [place] | [place] [address] | | | | | [address] | [phone] | | | | | [phone] | | | +--------+--------+ + + + [...]
--- OUTSIDE RECORDS SUMMARY | ~2020-03-26 | XMS | Encounter Summary ---
Demographics + + + | Address | [address] | | | [place] [address] | + + + | Home Phone [...] [facility] | | | and [place] | + + + | Organization | [facility] | | [...] [place] | | | | | [address] | | + + + + + | Floyd Herndon | ECON | NA | | | | | NA, | | + + + + + Care Team Providers + +------+ + | Care Gripper Attacher Name | Role | Phone | + [...] | 02/13/ | Refill | [facility] [place] [facility] | Beltran Fields, | Medication Refill | | 2012 | | MEDICINE [facility] | [address] [place] [address] | | | | | [facility] | [address] [place], | | | | | [place] [address] | [place] [address] | | | | | [phone] | [phone] | | | | | | | [...]
--- OUTSIDE RECORDS SUMMARY | ~2020-03-26 | XMS | Encounter Summary ---
Demographics + + + | Address | [address] | | | [place] [address] | + + + | Home Phone [...] [facility] | | | and [place] | + + + | Organization | [facility] | | | and [place] [...] [place] | | | | | [address] | | + + + + + | Floyd Herndon | ECON | NA | | | | | NA, | | + + + + + Care Team Providers + +------+ + | Care Cubing Machine Tender Name | Role | Phone [...] Essential | | | | [place] [address] | [place] [address] | hypertension, | | | | [phone] | [phone] | benign; Other | | | | [...]
--- OUTSIDE RECORDS SUMMARY | ~2020-03-26 | XMS | Encounter Summary ---
Demographics + + + | Address | [address] | | | [place] [address] | + + + | Home Phone [...] Author | [facility] | | | and [place] | + + + | Organization | [facility] [...] [place] | | | | | [address] | | + + + + + | Floyd Herndon | ECON | NA | | | | | NA, | | + + + + + Care Team Providers + +------+ + | Care Retail General Manager Name | Role | Phone | [...] | 11/19/ | Refill | [facility] [place] [facility] | Beltran Fields, | Medication Refill | | 2012 | | MEDICINE [place] | [address] | | | | | [address] | [address] [place], | | | | | [place] | [place] [address] | | | | | [address] | [phone] | | | | | [phone] | | | +--------+--------+ + + + [...]
--- OUTSIDE RECORDS SUMMARY | ~2020-03-26 | XMS | Encounter Summary ---
Demographics + + + | Address | [address] | | | [place] [address] | + + + | Home Phone | | + + + | Preferred Language | Unknown | + + + | Marital Status | | + + + | Hoahaoism Affiliation | 1009 | + + + | Race | Unknown | + + + | Ethnic Group | Unknown | + + + Author + + + | Author | [facility] | | | and [place] | + + + | Organization | [facility] [...] [place] | | | | | [address] | | + + + + + | Floyd Herndon | ECON | NA | | | | | NA, | | + + + + + Care Team Providers + +------+ + | Care Powerhouse Tender Name | Role | Phone | + +------+ + PCP | Unavailable | + +------+ + Encounter Details +--------+ + + + + | Date | Type | Department | Care Team | Description | +--------+ + + + + | 08/06/ | Hospital | [facility] | | | | 1998 | Encounter | MED CTR XRAY [address] | | | | | | [address] | | | | | | [place] [address] | | | | | | [phone] | | | +--------+ + + + [...]
--- OUTSIDE RECORDS SUMMARY | ~2020-03-26 | XMS | Encounter Summary ---
Demographics + + + | Address | [address] | | | [place] [address] | + + + | Home Phone [...] Author | [facility] | | | and [place] | + + + | Organization | [facility] | | | and [...] [place] | | | | | [address] | | + + + + + | Floyd Herndon | ECON | NA | | | | | NA, | | + + + + + Care Team Providers + +------+ + | Care Construction Equipment Mechanic Name | Role | Phone | [...] | 03/07/ | Telephone | [facility] [place] [facility] | Beltran Fields, | Results | | 2018 | | MEDICINE [address] | [address] | | | | | Street [place] | [place] [address] [place], | | | | | [place] [address] | [place] [address] | | | | | [phone] | [phone] | | | | | | | [...]
--- OUTSIDE RECORDS SUMMARY | ~2020-03-26 | XMS | Encounter Summary ---
Demographics + + + | Address | [address] | | | [place] [address] | + + + | Home Phone | | + + + | Preferred Language | Unknown | + + + | Marital Status | | + + + | Holiness Affiliation | 1009 | + + + | Race | Unknown | + + + | Ethnic Group | Unknown | + + + Author + + + | Author | [facility] | | | and [place] | + + + | Organization | [facility] | | | [...] [place] | | | | | [address] | | + + + + + | Floyd Herndon | ECON | NA | | | | | NA, | | + + + + + Care Team Providers + +------+ + | Care Computer Peripheral Equipment Operator Name | Role | Phone [...] + + | 02/22/ | Office | [facility] | Beltran Fields, | Type 2 diabetes | | 2019 | Visit | MEDICINE [place] | [address] | mellitus with | | | | [address] | [place] [address] [place], | hyperglycemia, | | | | [place] | [place] [address] | without long-term | | | | [address] | [phone] | current use of | | | | [phone] | | insulin (HCC) | | | [...] per Cardiology Dr Niranjan Luevano MD in [facility]. Hyperlipidemia, on lipitor, denies muscle aches or [...] yearly JEAN on CPAP, He saw Geronimo [place] Last week. 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 He is . 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 He lives in [place], [place]. 9 living Grandchildren. Patient's medications, allergies, [...] due and he will obtain these at [facility]. He is overdue for his colonscopy and [...] | | | | | | insulin ([facility]) | | + +------+--------+ + + documented [...]
--- OUTSIDE RECORDS SUMMARY | ~2020-03-26 | XMS | Encounter Summary ---
Demographics + + + | Address | [address] | | | [place] [address] | + + + | Home Phone [...] Author | [facility] | | | and [place] | + + + | Organization | [facility] Anand [...] [place] | | | | | [address] | | + + + + + | Flody Herndon | ECON | NA | | | | | NA, | | + + + + + Care Team Providers + +------+ + | Care Egg Candler Name | Role | Phone | + [...] | 07/13/ | Refill | [facility] [place] [facility] | Beltran Fields, | Medication Refill | | 2013 | | MEDICINE [facility] | [address] | | | | | [facility] | [address] [place], | | | | | [place] [address] | [place] [address] | | | | | [phone] | [phone] | | | | | | | [...]
--- OUTSIDE RECORDS SUMMARY | ~2020-03-26 | XMS | Encounter Summary ---
Demographics + + + | Address | [address] | | | [place] [address] | + + + | Home Phone [...] | Author | [facility] | | | and [place] | + + + | Organization | [facility] | | | and [...] [place] | | | | | [address] | | + + + + + | Floyd Herndon | ECON | NA | | | | | NA, | | + + + + + Care Team Providers + +------+ + | Care Bailer Operators Supervisor Name | Role | Phone | [...] | 03/24/ | Refill | [facility] [place] [facility] | Beltran Fields, | Medication Refill | | 2012 | | MEDICINE [facility] | [address] [place] [address] | | | | | [facility] | [address], | | | | | [place] [address] | [place] [address] | | | | | [phone] | [phone] | | | | | | | [...]
--- OUTSIDE RECORDS SUMMARY | ~2020-03-26 | XMS | Encounter Summary ---
Demographics + + + | Address | [address] | | | [place] [address] | + + + | Home Phone [...] Author | [facility] | | | and [place] | + + + | Organization | [facility] | | | and [...] [place] | | | | | [address] | | + + + + + | Floyd Herndon | ECON | NA | | | | | NA, | | + + + + + Care Team Providers + +------+ + | Care Dive Supervisor Name | Role | Phone | [...] | 05/11/ | Refill | [facility] [place] [facility] | Beltran Fields, | Medication Refill | | 2013 | | MEDICINE [facility] | [address] [place] [address] | | | | | [facility] | [address] [place], | | | | | [place] [address] | [place] [address] | | | | | [phone] | [phone] | | | | | | | [...]
--- OUTSIDE RECORDS SUMMARY | ~2020-03-26 | XMS | Encounter Summary ---
Demographics + + + | Address | [address] | | | [place] [address] | + + + | Home Phone [...] | Author | [facility] | | | and [place] | + + + | Organization | [facility] | [...] [place] | | | | | [address] | | + + + + + | Floyd Herndon | ECON | NA | | | | | NA, | | + + + + + Care Team Providers + +------+ + | Care Raw Cheese Worker Name | Role | Phone | [...] | 12/10/ | Refill | [facility] [place] [facility] | Beltran Fields, | Medication Refill | | 2015 | | MEDICINE [facility] | [address] [place] [address] | | | | | [facility] | [address] [place], | | | | | [place] [address] | [place] [address] | | | | | [phone] | [phone] | | | | | | | [...]
--- OUTSIDE RECORDS SUMMARY | ~2020-03-26 | XMS | Encounter Summary ---
Demographics + + + | Address | [address] | | | [place] [address] | + + + | Home Phone [...] + | Author | [facility] | | | and [place] | + + + | Organization | [facility] | [...] [place], [place] | | | | | [address] | | + + + + + | Floyd Herndon | ECON | NA | | | | | NA, | | + + + + + Care Team Providers + +------+ + | Care Tree Fruit And Nut Farming Supervisor Name | Role | Phone | + +------+ + | Beltran Fields MD | PCP | | + +------+ + Reason for Visit + + + | Reason | Comments | + + + | Medication Refill | Metoprolol | + + + | Hypertension | | + + + Encounter Details +--------+---------+ + + + | Date | Type | Department | Care Team | Description | +--------+---------+ + + + | 07/26/ | Office | [facility] | Beltran Fields, | Hyperlipidemia | | 2013 | Visit | MEDICINE [address] | [address] | (Primary Dx); | | | | Street [place] | [place] [address] [place], | Elevated PSA; Atrial | | | | [place] [address] | [place] [address] | fibrillation (HCC); | | | | [phone] | [phone] | Paroxysmal a-fib; | | | | | | Essential | | | | | | hypertension, | | | | | | benign; BENIGN | | | | | | PROSTATIC | | | | | | HYPERTROPHY, WITH | | | | | | OBSTRUCTION; PSA, | | | | | | INCREASED; | | | | | | Intermittent | | | | | | vertigo; | | | | | | Osteoarthritis [...] + + + | Blood Pressure | 130/92 | 07/26/2014 3:04 PM | | | | | PDT | | + + + + + | Pulse | 59 | 07/26/2014 3:04 PM | | | | | PDT | | + + + + + | Temperature | 37 C (98.6 F) | 07/26/2014 3:04 PM | | | | | PDT | | + + + + + | Respiratory Rate | 16 | 07/26/2014 3:04 PM | | | | | PDT | | + + + + + | Oxygen Saturation | 97% | 07/26/2014 3:04 PM | | | | | PDT | | + + + + + | Inhaled Oxygen | - | - | | | Concentration | | | | + + + + + | Weight | 120.7 kg (266 lb) | 07/26/2014 3:04 PM | | | | | PDT | | + + + + + | Height | 177.8 cm (5' 10") | 07/26/2014 3:04 PM | | | | | PDT | | + + + + + | Body Mass Index | 38.17 | 07/26/2014 3:04 PM | | | | | PDT | | + + + + + documented in this encounter Progress Notes Beltran Fields MD - 07/26/2014 3:14 PM PDTFormatting of this note might be different f rom the original. Subjective: Patient ID: Guy Thurman is a 68 y.o. male. HPI BPH, Elevated PSA, recent bx with Dr Padron, no cancer on bx x 2. Urine flow is still week , A dribble, unchanged from a couple year ago. He is not on a medication for this and is n ot interested in one at this time, There is urgency and hesitency when he travels. He was advised to get another biopsy, Gross hematuria, in the past which has not recurred since prior to the last visit. HTN has been fine, checks it daily at home. and it runs in the 120's-130's/70-80's, no mar st pain, SOB, Ankle, pretibial edema R>L unchanged for years. This is unchanged. Paroxysmal Afib, He will have an occasional palp with overexertion. When he wakes up on o ccasion in the morning he feels like he is buzzing like atrial flutter and occasionally befo re sleep, Rare episode, less than 6 episodes per year. Last several hours per episode, He is on ECASA 325mg po qd. Last echo 2007 with mild bitrial dilatation. Now on Flecainide per Cardiology Dr Niranjan Luevano MD in [place]. He underwent a stressecho test this january at was normal. Hyperlipidemia, on niacin and zocor, denies muscle aches or weakness. compliant with the m edications. This is unchanged. Lumbar Spinal stenosis, Surgery 2005, Worst standing, Period. Lying in bed is better. Th ere is some persistent numbness in B feet, Worst in the 3rd toes. There is no assoc bladde r or bowel changes. B knee pain, Left knee very painful climbing stairs, It hurts at night in bed. It is sti ll slightly swollen. Denies any clicking locking giving out or swelling. He does all righ t walking. He would be able to cycle if he wanted to. His knees are better now than they have been. ED, viagra gives him headaches, He would like to try cialis. Vertigo on occasion, He is on flonase for this. If he holds his head for long. Or with h ead turned to the left. This makes it so he cannot sleep on he sleep on his right side whic h helps prevent this. Past Medical History: Reviewed history from 09/19/2010 [...] child and 3 stepchildren. He lives in [place], [place]. 9 living Grandchildren. Review of Systems [...] gas Genitourinary: Negative for urgency, no frequency, some decreased urine volume some difficulty urinating. No Bloody urine Musculoskeletal: Neg for myalgias, some back pain, no joint swelling and No arthralgias. some joint pain Skin: Neg for color change,no rash and No wounds, no Strange moles Neurological: Pos for dizziness, no Weakness,no light-headedness, no numbness [...] motion Skin, no gross lesions Assessment: 1. Hyperlipidemia simvastatin (ZOCOR) 40 mg tablet 2. Elevated PSA PSA, Diagnostic 3. Atrial fibrillation (HCC) flecainide (TAMBOCOR) 50 MG tablet 4. Paroxysmal a-fib 5. Essential hypertension, benign 6. BENIGN PROSTATIC HYPERTROPHY, WITH OBSTRUCTION 7. PSA, INCREASED 8. Intermittent vertigo 9. Osteoarthritis Plan: He looks and feels at baseline. Labs today, Refill medication. PSA, He has declined bio psy at this point. If PSA has increased he is willing to undergo biopsy again. RTC 6 months . Otherwise continue current medical regimen. He will obtain 2hour GTT, FLP at [facility] . documented in this encounter Plan of Treatment Not on filedocumented as of this encounter Results CBC with Differential (07/26/2014 [...] + | [facility] | [address] | [place] | [phone] | | [facility] | | [address] | | | - LABORATORY | | | | + + + + + | [facility] | [address] | [place] | | | [facility] | | [address], [facility] | | | - [...] mL/min/1.73m2 | [facility] | | | [facility] | RATE,ESTIMATED | | MEDICAL | | | | mL/min/1.13l1Cxnp than | | CENTER - | | [...] + | [facility] | [address] | [place] | [phone] | | [facility] | | [address] | | | - LABORATORY | | | | + + + + + | [facility] | [address] | [place], [place] | | | [facility] | | [id number] | | | - LABORATORY | [...] + | [facility] | [address] | [place], [place] | [phone] | | [facility] | | [address] | | | - LABORATORY | | | | + + + + + | [facility] | [address] | [place], [place] | | | [facility] | | [address] [place] [address] | | | - LABORATORY | | | | + + + + + documented in this encounter Visit Diagnoses + + | Diagnosis | + + | Hyperlipidemia - Primary Other and unspecified hyperlipidemia | + + | Elevated PSA Elevated prostate specific antigen (PSA) | + + | Atrial fibrillation (HCC) Atrial fibrillation | + + | Paroxysmal a-fib Atrial fibrillation | + + | Essential hypertension, benign | + + | BENIGN PROSTATIC HYPERTROPHY, WITH OBSTRUCTION Hypertrophy of prostate with urinary | | obstruction and other lower urinary tract symptoms (LUTS) | + + | PSA, INCREASED Elevated prostate specific antigen (PSA) | + + | Intermittent vertigo Dizziness and giddiness | + + | Osteoarthritis Osteoarthrosis, unspecified whether generalized or localized, | | unspecified site | + + documented in this encounter
--- OUTSIDE RECORDS SUMMARY | ~2020-03-26 | XMS | Encounter Summary ---
Demographics + + + | Address | [address] | | | [place] [address] | + + + | Home Phone | | + + + | Preferred Language | Unknown | + + + | Marital Status | | + + + | Evangelical Affiliation | 1009 | + + + | Race | Unknown | + + + | Ethnic Group | Unknown | + + + Author + + + | Author | [facility] | | | and [place] | + + + | Organization | [facility] | | | and [place] [...] [place], [place] | | | | | [address] | | + + + + + | Floyd Herndon | ECON | NA | | | | | NA, | | + + + + + Care Team Providers + +------+ + | Care Engineer Technical Staff Name | Role | Phone | + [...] + + | Authorized | Specialty | Internal | Diagnoses | [...] | | | | | response | [place], [place] | [address] | | | | | ([facility]) | [address] | [place] | | | | | | Phone: | [address] Phone: | | | | | | [phone] | [phone] | | | | | | Fax: | Fax: | | | | | | [phone] | [phone] | + + + + + + + Reason for Visit + + + | Reason | Comments | + + + | Follow-up | medication | + + + Encounter Details +--------+---------+ + + + | Date | Type | Department | Care Team | Description | +--------+---------+ + + + | 01/22/ | Office | [facility] | Beltran Fields, | Type 2 diabetes | | 2020 | Visit | [facility] | MD [address] | mellitus with | | | | MEDICINE [place] | [address] [place], | hyperglycemia, | | | | [address] | [place] [address] | without long-term | | | | [address] [place], | [phone] | current use of | | | | [place] [address] | | insulin (HCC) | | | | [phone] | | (Primary Dx); | | | [...] evening. He is s eeking a new [place] return checker. 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 He lives in [place], [place]. 9 living Grandchildren. Patient's medications, allergies, [...]
--- OUTSIDE RECORDS SUMMARY | ~2020-03-26 | XMS | Encounter Summary ---
Demographics + + + | Address | [address] | | | [place] [address] | + + + | Home Phone [...] | Author | [facility] | | | and [place] | + + + | Organization | [facility] | | [...] [place] | | | | | [address] | | + + + + + | Floyd Herndon | ECON | NA | | | | | NA, | | + + + + + Care Team Providers + +------+ + | Care Piano Technician Name | Role | Phone | [...] W | | | | | | [place] | | | | [birth year] | | [place] [address] | | | | 2006 | | [phone] | | | +--------+ + + + [...]
--- OUTSIDE RECORDS SUMMARY | ~2020-03-26 | XMS | Encounter Summary ---
Demographics + + + | Address | [address] | | | [place] [address] | + + + | Home Phone [...] Author | [facility] | | | and [place] | + + + | Organization | [facility] [...] [place] | | | | | [address] | | + + + + + | Floyd Herndon | ECON | NA | | | | | NA, | | + + + + + Care Team Providers + +------+ + | Care Pharmaceutical Sales Specialist Name | Role | Phone | [...] | 11/07/ | Refill | [facility] [place] [facility] | [address]tran Fields, | Medication Refill | | 2012 | | MEDICINE [place] | [address] | | | | | [address] | [address] [place], | | | | | [place] | [place] [address] | | | | | [address] | [phone] | | | | | [phone] | | | +--------+--------+ + + + [...]
--- OUTSIDE RECORDS SUMMARY | ~2020-03-26 | XMS | Encounter Summary ---
Demographics + + + | Address | [address] | | | [place] [address] | + + + | Home Phone [...] | Author | [facility] | | | and [place] | + + + | Organization | [facility] | [...] [place] | | | | | [address] | | + + + + + | Floyd Herndon | ECON | NA | | | | | NA, | | + + + + + Care Team Providers + +------+ + | Care Information Resource Consultant Name | Role | Phone | [...] | 11/21/ | Refill | [facility] [place] [facility] | Beltr[address] Fields, | Medication Refill | | 2013 | | MEDICINE [place] | [address] | | | | | [address] | [address] [place], | | | | | [place] | [place] [address] | | | | | [address] | [phone] | | | | | [phone] | | | +--------+--------+ + + + [...]
--- OUTSIDE RECORDS SUMMARY | ~2020-03-26 | XMS | Encounter Summary ---
Demographics + + + | Address | [address] | | | [place] [address] | + + + | Home Phone [...] Author | [facility] | | | and [place] | + + + | Organization | [facility] | | | and [...] MICHELLE [place] | | | | | [address] | | + + + + + | Floyd Herndon | ECON | NA | | | | | NA, | | + + + + + Care Team Providers + +------+ + | Care Criminal Justice Lawyer Name | Role | Phone | + +------+ + PCP | Unavailable | + +------+ + Encounter Details +--------+ + + + + | Date | Type | Department | Care Team | Description | +--------+ + + + + | 10/19/ | Hospital | [facility] | Sridhar Corona | | | 2000 | Encounter | MED CTR SLEEP | MD Juan C [address] | | | | | CENTER [address] [place] | | | | | [place], [place] | [place] [address] | | | | | [address] | [phone] | | | | | [phone] | | | +--------+ + + + [...]
--- OUTSIDE RECORDS SUMMARY | ~2020-03-26 | XMS | Encounter Summary ---
Demographics + + + | Address | [address] | | | [place] [address] | + + + | Home Phone | | + + + | Preferred Language | Unknown | + + + | Marital Status | | + + + | Restoration Affiliation | 1009 | + + + | Race | Unknown | + + + | Ethnic Group | Unknown | + + + Author + + + | Author | [facility] | | | and [place] | + + + | Organization | [facility] | | | and [place] [...] [place], [place] | | | | | [address] | | + + + + + | Floyd Herndon | ECON | NA | | | | | NA, | | + + + + + Care Team Providers + +------+ + | Care Shearing Shed Hand Name | Role | Phone | [...] + | 04/25/ | Refill | [facility] | [address]tran Fields, | Medication Refill; | | 2018 | | MEDICINE [address] | [address] | Medication Refill | | | | [facility] | [address] [place], | | | | | [place] [address] | [place] [address] | | | | | [phone] | [phone] | | | | | | | [...]
--- OUTSIDE RECORDS SUMMARY | ~2020-03-26 | XMS | Encounter Summary ---
Demographics + + + | Address | [address] | | | [place] [address] | + + + | Home Phone [...] Author | [facility] | | | and [place] | + + + | Organization | [facility] | [...] [place] | | | | | [address] | | + + + + + | Floyd Herndon | ECON | NA | | | | | NA, | | + + + + + Care Team Providers + +------+ + | Care Supervisor Felling Bucking Name | Role | Phone | + [...] | | 02/12/ | | [place] [address] | | | | 2006 | | [phone] | | | +--------+ + + + [...]
--- OUTSIDE RECORDS SUMMARY | ~2020-03-26 | XMS | Encounter Summary ---
Demographics + + + | Address | [address] | | | [place] [address] | + + + | Home Phone [...] + | Author | [facility] | | | and [place] | + + + | Organization | [facility] | | [...] [place] | | | | | [address] | | + + + + + | Floyd Herndon | ECON | NA | | | | | NA, | | + + + + + Care Team Providers + +------+ + | Care Merchandising Intern Name | Role | Phone | [...] + + | 04/21/ | Office | [facility] | Geronimo Iglesias PA | JEAN on CPAP (Primary | | 2016 | Visit | SLEEP DISORDER 401 | [address] | Dx) | | | | [address] | [place] | | | | | [place] [address] | [id number] | | | | | [phone] | | | +--------+---------+ + + + [...] in this encounter Progress Notes Paola Gallegos, Fire Management Technician - 04/21/2016 3:22 PM PDT 04/21/16 1500 [address] Depression Inventory-II Depression Score 1 - Minimal depression Insomnia Severity Index Insomnia Severity Index 9 [place] Sleepiness Scale Sitting and reading 2 Watching [...] nasal mask DME: [facility] [place] pressure: 8-16 cm Median: 10.4 cm 95%: [...] his sleep routine. 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 He does not have [...] Exam Assessment: Problem #1: OBSTRUCTIVE SLEEP APNEA ([id number]) This is well controlled with CPAP. His CPAP compliance is going well. Plan: 1. He is to continue with CPAP indefinitely. 2. Touch base with medical supplier twice per year to ensure that all equipment is satisfa ctory. I will follow up again in 2 years, sooner prn. At that time we will reassess with all appr opriate paperwork. Fifteen minutes were spent [id number], with the majority of time spent in [...]
--- OUTSIDE RECORDS SUMMARY | ~2020-03-26 | XMS | Encounter Summary ---
Demographics + + + | Address | [address] | | | [place] [address] | + + + | Home Phone [...] + | Author | [facility] | | | and [place] | + + + | Organization | [facility] | | | and [...] [place] | | | | | [address] | | + + + + + | Floyd Herndon | ECON | NA | | | | | NA, | | + + + + + Care Team Providers + +------+ + | Care Spinner Concrete Pipe Name | Role | Phone | + [...] + + | 09/06/ | Telephone | [facility] [place] [facility] | Jordin Padron, | Other | | 2013 | | [address] | MD [address] | | | | | [place] [address] | [place], [place] | | | | | [address] | [address] | | | | | [phone] | | | +--------+ + + + [...]
--- OUTSIDE RECORDS SUMMARY | ~2020-03-26 | XMS | Encounter Summary ---
Demographics + + + | Address | [address] | | | [place] [address] | + + + | Home Phone [...] [facility] | | | and [place] | + + + | Organization | [facility] | | | [...] [place] | | | | | [address] | | + + + + + | Floyd Herndon | ECON | NA | | | | | NA, | | + + + + + Care Team Providers + +------+ + | Care Director Of Early Childhood Name | Role | Phone | + [...] | 11/11/ | Refill | [facility] [place] [facility] | [address]tr[address] Fields, | Medication Refill | | 2014 | | MEDICINE [facility] | [address] [place] [address] | | | | | [facility] | [address] [place], | | | | | [place] [address] | [place] [address] | | | | | [phone] | [phone] | | | | | | | [...]
--- OUTSIDE RECORDS SUMMARY | ~2020-03-26 | XMS | Encounter Summary ---
Demographics + + + | Address | [address] | | | [place] [address] | + + + | Home Phone [...] Author | [facility] | | | and [place] | + + + | Organization | [facility] Anand [...] [place] | | | | | [address] | | + + + + + | Floyd Herndon | ECON | NA | | | | | NA, | | + + + + + Care Team Providers + +------+ + | Care Product Safety Manager Name | Role | Phone | [...] [place] | | | | | [address] | [address] | | | | | [phone] | | | +--------+ + + + [...]
--- OUTSIDE RECORDS SUMMARY | ~2020-03-26 | XMS | Encounter Summary ---
Demographics + + + | Address | [address] | | | [place] [address] | + + + | Home Phone [...] | Author | [facility] | | | and [place] | + + + | Organization | [facility] | | | and [...] [place] | | | | | [address] | | + + + + + | Floyd Herndon | ECON | NA | | | | | NA, | | + + + + + Care Team Providers + +------+ + | Care Fitness Studies Teacher Name | Role | Phone | [...] + + | 09/08/ | Office | [facility] | Beltran Fields, | Osteoarthritis; BPH | | 2011 | Visit | MEDICINE [place] | [address] | (benign prostatic | | | | [address] | [place] [place], | hyperplasia); | | | | [place], [place] | [place] [address] | Essential | | | | [address] | [phone] | hypertension, | | | | [phone] | | benign; BENIGN | | | [...] child and 3 stepchildren. He lives in [place], [place]. 9 living Grandchildren. Review of Systems [...]
--- OUTSIDE RECORDS SUMMARY | ~2020-03-26 | XMS | Encounter Summary ---
Demographics + + + | Address | [address] | | | [place] [address] | + + + | Home Phone [...] + | Author | [facility] | | | and [place] | + + + | Organization | [facility] [...] [place] | | | | | [address] | | + + + + + | Floyd Herndon | ECON | NA | | | | | NA, | | + + + + + Care Team Providers + +------+ + | Care Online Activist Name | Role | Phone | + [...] | SLEEP DISORDER [address] | [address] | Dx) | | | | [address] [place] | [place], [place] | | | | | [place] [address] | [address] | | | | | [phone] | | | +--------+---------+ + + + [...] AM PDT March 24, 2013 Guy Thurman [address] [place] [address] [place] [address] Dear Guy: Thank you for enrolling in [employer]. Please follow the instructions below to view your [employer] online medical record. [employer] allows you to send secure messages to your doctor, view you r test results, renew your prescriptions, schedule appointments, and more. How Do I Sign Up? 1. In your Internet browser, go to [email or web address] 2. Click on the "Sign up with your activation code" button in the "New User?" box. This sachin l take you to the New Member Sign Up page. 3. Enter your [employer] activation code exactly as it appears below. You will not need to use this code after you sign up. If you do not sign up before the expiration date, you must req uest a new code through your [place] participating clinic. [employer] Access Code: Not generated Current [employer] Status: Active 4. Fill in the last four digits of your Social Security Number (xxxx) and Date of (mm /dd/yyyy) and click Next. 5. Create a [place] [employer] username. Your username cannot be changed, so think of one t hat is secure and easy to remember. 6. Create a [employer] password. You can change your password at any time. 7. Enter your security question and answer. This can be used at a later time if you forget your password. Click Next. 8. Enter your e-mail address. You will receive e-mail notification when new information is available in [employer]. 9. Click "Sign In". You may now view your medical record. Additional Information If you have questions, you can email [email or web address] or call [phone] to talk to our [employer] care team. Please remember, [employer] should NOT be used for urg ent [...] mask obtained from: [facility] in [place], [place] pressure is: 8-16 cm 95%: 12.7 [...] coco base with [facility] in [place] twice per year to ensure that all medical suppli es are satisfactory. I will follow up again in 2 years, sooner prn. At that time we will reassess with all appr opiate paperwork. Fifteen minutes were spent ckiw-sm-ezee, with the majority of time spent in counseling. Geronimo Iglesias PA-C cc: Colton Fields MD Paola Chowdary - 2012 11:01 AM PDT 03/24/13 1100 Lopez Depression Inventory-II Depression Score 3 - Minimal depression Insomnia Severity Index Insomnia Severity Index 12 [place] Sleepiness Scale Sitting and reading 1 Watching [...]
--- OUTSIDE RECORDS SUMMARY | ~2020-03-26 | XMS | Encounter Summary ---
Demographics + + + | Address | [address] | | | [place] [address] | + + + | Home Phone [...] Author | [facility] | | | and [place] | + + + | Organization | [facility] | | | and [...] [place] | | | | | [address] | | + + + + + | Floyd Herndon | ECON | NA | | | | | NA, | | + + + + + Care Team Providers + +------+ + | Care Shoe Maker Name | Role | Phone | [...] [place] | | | | | [address] | [address] | | | | | [phone] | | | +--------+ + + + [...]
--- OUTSIDE RECORDS SUMMARY | ~2020-03-26 | XMS | Encounter Summary ---
Demographics + + + | Address | [address] | | | [place] [address] | + + + | Home Phone | | + + + | Preferred Language | Unknown | + + + | Marital Status | | + + + | Anabaptist Affiliation | 1009 | + + + | Race | Unknown | + + + | Ethnic Group | Unknown | + + + Author + + + | Author | [facility] | | | and [place] | + + + | Organization | [facility] Anand [...] [place] | | | | | [address] | | + + + + + | Floyd Herndon | ECON | NA | | | | | NA, | | + + + + + Care Team Providers + +------+ + | Care Retail Coordinator Name | Role | Phone | [...] | 05/27/ | Refill | [facility] [place] [facility] | [address]tran Fields, | Medication Refill | | 2016 | | MEDICINE [facility] All | [address] [place] [address] | | | | | [place] [address] | [address] [place], | | | | | [place] [address] | [place] [address] | | | | | [phone] | [phone] | | | | | | | [...]
--- OUTSIDE RECORDS SUMMARY | ~2020-03-26 | XMS | Encounter Summary ---
Demographics + + + | Address | [address] | | | [place] [address] | + + + | Home Phone [...] | Author | [facility] | | | and [place] | + + + | Organization | [facility] | [...] [place] | | | | | [address] | | + + + + + | Floyd Herndno | ECON | NA | | | | | NA, | | + + + + + Care Team Providers + +------+ + | Care Property Maintenance Technician Name | Role | Phone | [...] + + | 01/28/ | Office | [facility] | [address], | Other iron | | 2016 | Visit | MEDICINE [address] | [address] | deficiency anemia | | | | [facility] | [address] [place], | (Primary Dx); | | | | [place] [address] | [place] [address] | Essential | | | | [phone] | [phone] | hypertension, | | | | | [...] bid per Cardiology Taylor Luevano MD in [place]. 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 He lives in [place], [place]. 9 living Grandchildren. Review of Systems [...]
--- OUTSIDE RECORDS SUMMARY | ~2020-03-26 | XMS | Encounter Summary ---
Demographics + + + | Address | [address] | | | [place] [address] | + + + | Home Phone [...] Author | [facility] | | | and [place] | + + + | Organization | [facility] [...] [place] | | | | | [address] | | + + + + + | Floyd Herndon | ECON | NA | | | | | NA, | | + + + + + Care Team Providers + +------+ + | Care Vamp Creaser Name | Role | Phone | + +------+ + PCP | Unavailable | + +------+ + Encounter Details +--------+ + + + + | Date | Type | Department | Care Team | Description | +--------+ + + + + | 11/24/ | Hospital | [facility] | | | | 2006 | Encounter | MED CTR LABORATORY | | | | | | [address] | | | | | | [place] | | | | | | [address] | | | | | | [phone] | | | +--------+ + + + [...]
--- OUTSIDE RECORDS SUMMARY | ~2020-03-26 | XMS | Encounter Summary ---
Demographics + + + | Address | [address] | | | [place] [address] | + + + | Home Phone [...] Author | [facility] | | | and [place] | + + + | Organization | [facility] | | | and [...] [place] | | | | | [address] | | + + + + + | Floyd Herndon | ECON | NA | | | | | NA, | | + + + + + Care Team Providers + +------+ + | Care Industrial Tech Instructor Name | Role | Phone | [...] Refill | | 2020 | | MEDICINE [place] | [address] | | | | | [address] | [address] [place], | | | | | [place] | [place] [address] | | | | | [address] | [phone] | | | | | [phone] | | | +--------+--------+ + + + [...]
--- OUTSIDE RECORDS SUMMARY | ~2020-03-26 | XMS | Encounter Summary ---
Demographics + + + | Address | [address] | | | [place] [address] | + + + | Home Phone [...] + | Author | [facility] | | | and [place] | + + + | Organization | [facility] | | | and [place] [...] [place] | | | | | [address] | | + + + + + | Floyd Herndon | ECON | NA | | | | | NA, | | + + + + + Care Team Providers + +------+ + | Care School Nurse Name | Role | Phone | + [...] [place] | | | | | [address] | [id number] | | | | | [phone] | | | +--------+ + + + [...]
--- OUTSIDE RECORDS SUMMARY | ~2020-03-26 | XMS | Encounter Summary ---
Demographics + + + | Address | [address] | | | [place] [address] | + + + | Home Phone [...] [facility] | | | and [place] | + + + | Organization | [facility] | [...] [place] | | | | | [address] | | + + + + + | Floyd Herndon | ECON | NA | | | | | NA, | | + + + + + Care Team Providers + +------+ + | Care School Counselor Name | Role | Phone | [...] | 01/07/ | Refill | [facility] [place] [facility] | [address]tr[address] Fields, | Medication Refill | | 2015 | | MEDICINE [facility] | [address] | | | | | [facility] | [address] [place], | | | | | [place] [address] | [place] [address] | | | | | [phone] | [phone] | | | | | | | [...]
--- OUTSIDE RECORDS SUMMARY | ~2020-03-26 | XMS | Encounter Summary ---
Demographics + + + | Address | [address] | | | [place] [address] | + + + | Home Phone [...] Author | [facility] | | | and [place] | + + + | Organization | [facility] | | | and [place] [...] [place], [place] | | | | | [address] | | + + + + + | Floyd Herndon | ECON | NA | | | | | NA, | | + + + + + Care Team Providers + +------+ + | Care Data Steward Name | Role | Phone | + [...] + | 07/26/ | Office | [facility] | [address]tr[address] Fields, | Hyperlipidemia | | 2013 | Visit | MEDICINE [address] | [address] | (Primary Dx); | | | | Street [place] | [place] [address] [place], | Elevated PSA; Atrial | | | | [place] [address] | [place] [address] | fibrillation (HCC); | | | | [phone] | [phone] | Paroxysmal a-fib; | | | | [...] per Cardiology Dr Niranjan Luevano MD in [place]. He underwent a stressecho test this january [...] child and 3 stepchildren. He lives in [place], [place]. 9 living Grandchildren. Review of Systems [...] He will obtain 2hour GTT, FLP at [facility] . documented in this encounter Plan [...] + | [facility] | [address] | [place] | [phone] | | [facility] | | [address] | | | - LABORATORY | | | | + + + + + | [facility] | [address] | [place] | | | [facility] | | [address], [facility] | | | - LABORATORY | [...] mL/min/1.73m2 | [facility] | | | [facility]UG[facility]AN | RATE,ESTIMATED | | MEDICAL | | | | mL/min/1.94v7Oqac than | | CENTER - | | [...] | ine Ratio | | | [facility] | | [...] + | [facility] | [address] | [place] | [phone] | | [facility] | | [address] | | | - LABORATORY | | | | + + + + + | [facility] | [address] | [place], [place] | | | [facility] | | [address] | | | - LABORATORY | [...] + | [facility] | [address] | [place], [place] | [phone] | | [facility] | | [address] | | | - LABORATORY | | | | + + + + + | [facility] | [address] | [place], [place] | | | [facility] | | [address] [place] [address] | | | - LABORATORY | | [...]
--- OUTSIDE RECORDS SUMMARY | ~2020-03-26 | XMS | Encounter Summary ---
Demographics + + + | Address | [address] | | | [place] [address] | + + + | Home Phone [...] Author | [facility] | | | and [place] | + + + | Organization | [facility] | [...] [place] | | | | | [address] | | + + + + + | Floyd Herndon | ECON | NA | | | | | NA, | | + + + + + Care Team Providers + +------+ + | Care Small Electric Engine Technician Name | Role | Phone | [...] | 11/25/ | Refill | [facility] [place] [facility] | [address]tr[address] Fields, | Medication Refill | | 2016 | | MEDICINE [facility] | [address] [place] [address] | | | | | [place] [address] | [address] [place], | | | | | [place] [address] | [place] [address] | | | | | [phone] | [phone] | | | | | | | [...]
--- OUTSIDE RECORDS SUMMARY | ~2020-03-26 | XMS | Encounter Summary ---
Demographics + + + | Address | [address] | | | [place] [address] | + + + | Home Phone [...] | Author | [facility] | | | and [place] | + + + | Organization | [facility] [...] [place] | | | | | [address] | | + + + + + | Floyd Herndon | ECON | NA | | | | | NA, | | + + + + + Care Team Providers + +------+ + | Care Warehouse Record Clerk Name | Role | Phone | [...] | | | | 09/18/ | | [place], | | | | 2004 | | [place] [address] | | | | | | [phone] | | | +--------+ + + + [...]
--- OUTSIDE RECORDS SUMMARY | ~2020-03-26 | XMS | Encounter Summary ---
Demographics + + + | Address | [address] | | | [place] [address] | + + + | Home Phone [...] + + | Author | [facility] | | | and [place] | + + + | Organization | [facility] | [...] [place] | | | | | [address] | | + + + + + | Floyd Herndon | ECON | NA | | | | | NA, | | + + + + + Care Team Providers + +------+ + | Care Furniture Detailer Name | Role | Phone | + [...] | 01/28/ | Refill | [facility] [place] INTERNAL | Beltran Fields, | Medication Refill | | 2019 | | MEDICINE [facility] All | [address] | | | | | [place] | [place] [address] [place], | | | | | [place] [address] | [place] [id number] | | | | | [phone] | [phone] | | | | | | | [...]
--- OUTSIDE RECORDS SUMMARY | ~2020-03-26 | XMS | Encounter Summary ---
Demographics + + + | Address | [address] | | | [place] [address] | + + + | Home Phone [...] | Author | [facility] | | | and [place] | + + + | Organization | [facility] | | [...] [place] | | | | | [address] | | + + + + + | Floyd Herndon | ECON | NA | | | | | NA, | | + + + + + Care Team Providers + +------+ + | Care Banquet Lead Name | Role | Phone | + +------+ + PCP | Unavailable | + +------+ + Encounter Details +--------+ + + + + | Date | Type | Department | Care Team | Description | +--------+ + + + + | 12/01/ | [facility] | | | [facility] | Encounter | MED CTR XRAY [address] | | | | | | [address] | | | | | | [place] [address] | | | | | | [phone] | | | +--------+ + + + [...]
--- OUTSIDE RECORDS SUMMARY | ~2020-03-26 | XMS | Encounter Summary ---
Demographics + + + | Address | [address] | | | [place] [address] | + + + | Home Phone [...] + | Author | [facility] | | | and [place] | + + + | Organization | [facility] | | [...] [place] | | | | | [address] | | + + + + + | Floyd Herndon | ECON | NA | | | | | NA, | | + + + + + Care Team Providers + +------+ + | Care Poultry Farmer Name | Role | Phone | + +------+ + | Beltran Fields MD | PCP | | + +------+ + Encounter Details +--------+ + + + + | Date | Type | Department | Care Team | Description | +--------+ + + + + | 11/09/ | Hospital | [facility] | Julieta Sun | Pulmonary embolism | | 2013 | Encounter | [facility] [address] | MD John [address] | ([facility]); S/P | | | | [address] | [address] | prostatectomy; Chest | | | | [place], [place] | [place] [address] | pain; Hematuria; | | | | [address] | [phone] | Anemia; BPH (benign | | | | [phone] | | prostatic | | | | [...] | | | | | | emboli ([facility]) | +--------+ + + + + Social [...] 11/09/141124 Date of Service: 11/09/14947 Status: Addendum Electrical Accessories Assembler: Jordan Donahue MD (Physician) Related Notes: Original Note by Jordan Donahue MD (Physician) filed at 11/09/141124 [facility]: Hospitalist Physician Discharge Summary Pt: Guy Thurman AGE/SEX: 69 y.o. male ROOM: [address] [place] [address] PCP: PER PT NONE : 1945 Admit [...] DONAHUE MD 11/09/2014 9:48 AM Dictation software, [employer], used which may contain error for similar [...] + + + +---------+ + + | Garrison-3 Fatty | two capsules by | | [...] Note by Payton Fuentes RN at 11/09/14 6217 Author: Payton Fuentes RN Service: (none) Author Type: Registered Nurse Filed: 11/09/14 1239 Date of Service: 11/09/14 082 Status: Signed Electrical Accessories Assembler: Payton Fuentes RN (Registered Nurse) Patient discharged [...] AM PST Progress Notes by Quyen Becker [facility] at 11/09/14 0519 Author: Quyen Becker RPH Service: (none) Author Type: Pharmacist Filed: 11/09/14518 Date of Service: 11/09/14518 Status: Signed Electrical Accessories Assembler: Quyen Becker RPH (Pharmacist) Clinical Pharmacy Note: [...] EXTERNAL | | | | performed at [facility], [address] | uIU/mL | LAB | | | | [address], | | | | | | [place] [address] | | | | + + + [...] | | | | | [place] [address] | | | | + + + + + + | Triglycerid | 175 (H)Comment: Testing | mg/dL | EXTERNAL | | | es | performed at [facility], [address] | | LAB | | | | [address], | | | | | | [place] [address] | | | | + + + + + + | HDL | 19 (L)Comment: Testing | mg/dL | EXTERNAL | | | | performed at [facility], [address] | | LAB | | | | [address], | | | | | | [place] [address] | | | | + + + + + + | LDL, | 61Comment: Testing | mg/dL | EXTERNAL | | | Calculated | performed at [facility], [address] | | LAB | | | | [address], | | | | | | [place] [address] | | | | + + + [...] | | | | | ONLY, -COMPUTER (902), | | | | | | associate entertainment editor Kristy Martinez | | | | | | (18) on 11/09/2014 | | | | | | 5:25:44 AM | | | | + + + + + + + + | Specimen | + + | | + + + + + | Narrative | Performed At | + + + | Historically converted procedure from [facility] | EXTERNAL LAB | + [...]
--- OUTSIDE RECORDS SUMMARY | ~2020-03-26 | XMS | Encounter Summary ---
Demographics + + + | Address | [address] | | | [place] [address] | + + + | Home Phone [...] | Author | [facility] | | | and [place] | + + + | Organization | [facility] [...] [place] | | | | | [address] | | + + + + + | Floyd Herndon | ECON | NA | | | | | NA, | | + + + + + Care Team Providers + +------+ + | Care Retail Associate Name | Role | Phone | [...] [place], | | | | | [place] [address] | [place] [address] | | | | | [phone] | [phone] | | | | | | | [...]
--- OUTSIDE RECORDS SUMMARY | ~2020-03-26 | XMS | Encounter Summary ---
Demographics + + + | Address | [address] | | | [place] [address] | + + + | Home Phone [...] | Author | [facility] | | | and [place] | + + + | Organization | [facility] | | | and [...] [place] | | | | | [address] | | + + + + + | Floyd Herndon | ECON | NA | | | | | NA, | | + + + + + Care Team Providers + +------+ + | Care Home Aid Name | Role | Phone | + [...] | 07/26/ | Refill | [facility] [place] INTERNAL | Beltran Fields, | Medication Refill | | 2014 | | MEDICINE [facility] All | [address] [place] [address] | | | | | [place] | [address] [place], | | | | | [place] [address] | [place] [address] | | | | | [phone] | [phone] | | | | | | | [...]
--- OUTSIDE RECORDS SUMMARY | ~2020-03-26 | XMS | Encounter Summary ---
Demographics + + + | Address | [address] | | | [place] [address] | + + + | Home Phone [...] Author | [facility] | | | and [place] | + + + | Organization | [facility] | [...] [place] | | | | | [address] | | + + + + + | Floyd Herndon | ECON | NA | | | | | NA, | | + + + + + Care Team Providers + +------+ + | Care Accordion Tuner Name | Role | Phone | + [...] | 02/14/ | Refill | [facility] [place] INTERNAL | Beltran Fields, | Medication Refill | | 2014 | | MEDICINE [facility] All | [address] | | | | | [place] | [address] [place], | | | | | [place] [address] | [place] [address] | | | | | [phone] | [phone] | | | | | | | [...]
--- OUTSIDE RECORDS SUMMARY | ~2020-03-26 | XMS | Encounter Summary ---
Demographics + + + | Address | [address] | | | [place] [address] | + + + | Home Phone [...] | [facility] | | | and [place] | + + + | Organization | [facility] | | | and [...] [place] | | | | | [address] | | + + + + + | Floyd Herndon | ECON | NA | | | | | NA, | | + + + + + Care Team Providers + +------+ + | Care Shipping Technician Name | Role | Phone | [...] + + | 06/17/ | Telephone | [facility] INTERNAL | Beltran Fields, | Lab Order | | 2014 | | MEDICINE [address] | [address] | | | | | [address] | [address] [place], | | | | | [place] [address] | [place] [address] | | | | | [phone] | [phone] | | | | | | | [...]
--- OUTSIDE RECORDS SUMMARY | ~2020-03-26 | XMS | Encounter Summary ---
Demographics + + + | Address | [address] | | | [place] [address] | + + + | Home Phone [...] | Author | [facility] | | | and [place] | + + + | Organization | [facility] | | [...] [place] | | | | | [address] | | + + + + + | Floyd Herndon | ECON | NA | | | | | NA, | | + + + + + Care Team Providers + +------+ + | Care Roustabout Head Name | Role | Phone | [...] | | | | | [place] | [place] | | | | | [address] | [address] | | | | | [phone] | | | +--------+ + + + [...]
--- OUTSIDE RECORDS SUMMARY | ~2020-03-26 | XMS | Encounter Summary ---
Demographics + + + | Address | [address] | | | [place] [address] | + + + | Home Phone [...] + | Author | [facility] | | | and [place] | + + + | Organization | [facility] | | | and [...] [place] | | | | | [address] | | + + + + + | Floyd Herndon | ECON | NA | | | | | NA, | | + + + + + Care Team Providers + +------+ + | Care Over Hauler Helper Name | Role | Phone | [...] | 08/21/ | Refill | [facility] [place] INTERNAL | Beltran Fields, | Medication Refill | | 2012 | | MEDICINE [facility] All | [address] [place] [address] | | | | | [facility] | [address] [place], | | | | | [place] [address] | [place] [address] | | | | | [phone] | [phone] | | | | | | | [...]
--- OUTSIDE RECORDS SUMMARY | ~2020-03-26 | XMS | Encounter Summary ---
Demographics + + + | Address | [address] | | | [place] [address] | + + + | Home Phone [...] | Author | [facility] | | | and [place] | + + + | Organization | [facility] | | | and [place] [...] [place] | | | | | [address] | | + + + + + | Floyd Herndon | ECON | NA | | | | | NA, | | + + + + + Care Team Providers + +------+ + | Care Cardiovascular Surgical Tech Name | Role | Phone | [...] Description | +--------+--------+ + + + | 11/26/ | Refill | [facility] [place] INTERNAL | Beltran Fields, | Medication Refill | | 2016 | | MEDICINE [facility] All | [address] [place] [address] | | | | | [place] | [address] [place], | | | | | [place] [address] | [place] [address] | | | | | [phone] | [phone] | | | | | | | [...]
--- OUTSIDE RECORDS SUMMARY | ~2020-03-26 | XMS | Encounter Summary ---
Demographics + + + | Address | [address] | | | [place] [address] | + + + | Home Phone [...] | Author | [facility] | | | and [place] | + + + | Organization | [facility] | | [...] [place] | | | | | [address] | | + + + + + | Floyd Herndon | ECON | NA | | | | | NA, | | + + + + + Care Team Providers + +------+ + | Care In Home Nanny Name | Role | Phone | + [...] [place], | | | | | [place] [address] | [place] [address] | | | | | [phone] | [phone] | | | | | | | [...]
--- OUTSIDE RECORDS SUMMARY | ~2020-03-26 | XMS | Encounter Summary ---
Demographics + + + | Address | [address] | | | [place] [address] | + + + | Home Phone [...] Author | [facility] | | | and [place] | + + + | Organization | [facility] | | | and [...] [place], [place] | | | | | [address] | | + + + + + | Floyd Herndon | ECON | NA | | | | | NA, | | + + + + + Care Team Providers + +------+ + | Care Wire Rigger Name | Role | Phone | + [...] + + | 12/05/ | Refill | [facility] | Beltran Fields, | Medication Refill; | | 2019 | | MEDICINE [place] | [address] | Medication Refill | | | | [address] | [address] [place], | | | | | [place] | [place] [address] | | | | | [address] | [phone] | | | | | [phone] | | | +--------+--------+ + + + [...]
--- OUTSIDE RECORDS SUMMARY | ~2020-03-26 | XMS | Encounter Summary ---
Demographics + + + | Address | [address] | | | [place] [address] | + + + | Home Phone [...] Author | [facility] | | | and [place] | + + + | Organization | [facility] | [...] [place] | | | | | [address] | | + + + + + | Floyd Herndon | ECON | NA | | | | | NA, | | + + + + + Care Team Providers + +------+ + | Care Metallurgical Or Materials Technician Name | Role | Phone | [...] | 12/02/ | Refill | [facility] [place] INTERNAL | Beltran Fields, | Medication Refill | | 2016 | | MEDICINE [facility] All | [address] [place] [address] | | | | | [place] | [address] [place], | | | | | [place] [address] | [place] [address] | | | | | [phone] | [phone] | | | | | | | [...]
--- OUTSIDE RECORDS SUMMARY | ~2020-03-26 | XMS | Encounter Summary ---
Demographics + + + | Address | [address] | | | [place] [address] | + + + | Home Phone [...] | Author | [facility] | | | and [place] | + + + | Organization | [facility] [...] [place] | | | | | [address] | | + + + + + | Floyd Herndon | ECON | NA | | | | | NA, | | + + + + + Care Team Providers + +------+ + | Care Building Tech Name | Role | Phone | [...] | 12/02/ | Refill | [facility] [place] INTERNAL | Beltran Fields, | Medication Refill | | 2015 | | MEDICINE [facility] All | [address] [place] [address] | | | | | [place]ves | [address] [place], | | | | | [place] [address] | [place] [address] | | | | | [phone] | [phone] | | | | | | | [...]
--- OUTSIDE RECORDS SUMMARY | ~2020-03-26 | XMS | Encounter Summary ---
Demographics + + + | Address | [address] | | | [place] [address] | + + + | Home Phone | | + + + | Preferred Language | Unknown | + + + | Marital Status | | + + + | Nondenominational Affiliation | 1009 | + + + | Race | Unknown | + + + | Ethnic Group | Unknown | + + + Author + + + | Author | [facility] | | | and [place] | + + + | Organization | [facility] | | | and [place] [...] [place] | | | | | [address] | | + + + + + | Floyd Herndon | ECON | NA | | | | | NA, | | + + + + + Care Team Providers + +------+ + | Care Pharmacy Customer Care Specialist Name | Role | Phone | [...] Description | +--------+--------+ + + + | 12/25/ | Refill | [facility] [place] INTERNAL | Beltran Fields, | Medication Refill | | 2019 | | MEDICINE [facility] All | [address] | | | | | [place] | [address] [place], | | | | | [place] [address] | [place] [address] | | | | | [phone] | [phone] | | | | | | | [...]
--- OUTSIDE RECORDS SUMMARY | ~2020-03-26 | XMS | Encounter Summary ---
Demographics + + + | Address | [address] | | | [place] [address] | + + + | Home Phone [...] Author | [facility] | | | and [place] | + + + | Organization | [facility] | | | and [place] [...] [place] | | | | | [address] | | + + + + + | Floyd Herndon | ECON | NA | | | | | NA, | | + + + + + Care Team Providers + +------+ + | Care Perinatal Specialist Name | Role | Phone | [...] | 04/04/ | Refill | [facility] [place] INTERNAL | Beltran Fields, | Medication Refill | | 2017 | | MEDICINE [facility] All | [address] | | | | | [place] | [address] [place], | | | | | [place] [address] | [place] [address] | | | | | [phone] | [phone] | | | | | | | [...]
--- OUTSIDE RECORDS SUMMARY | ~2020-03-26 | XMS | Encounter Summary ---
Demographics + + + | Address | [address] | | | [place] [address] | + + + | Home Phone [...] [facility] | | | and [place] | + + + | Organization | [facility] | [...] [place] | | | | | [address] | | + + + + + | Floyd Herndon | ECON | NA | | | | | NA, | | + + + + + Care Team Providers + +------+ + | Care Material Mixer Name | Role | Phone | + [...] + + | 03/27/ | Telephone | [facility] | Sridhar John | Appointment | | 2012 | | ORTHOPEDIC SURGERY | MD Toro [address] [place] [address] | | | | | [address] [facility] [address] [facility] | [place] | | | | | [place], [place] | [address] | | | | | [address] | | | | | | [phone] | | | +--------+ + + + [...]
--- OUTSIDE RECORDS SUMMARY | ~2020-03-26 | XMS | Clinical Summary ---
Demographics + + + | Address | [address] | | | [place] [address] | + + + | Home Phone | | + + + | Preferred Language | Unknown | + + + | Marital Status | | + + + | Druze Affiliation | Unknown | + + + | Race | Unknown | + + + | Ethnic Group | Unknown | + + + Author + + + | Author | [facility] (Historical as of | | | 07-01-19) | + + + | Organization | [facility] (Historical as of | | | 07-01-19) | + + + | Address | Unknown | + + + | Phone | Unavailable | + + + Support + + + + + | Name | Relationship | Address | Phone | + + + + + | Yuliet Crow | ECON | [address] | | | | | [place] | | | | | [address] | | + + + + + Care Team Providers + +------+ + | Care Auto Air Conditioning Installer Name | Role | Phone | + +------+ + | Dr. Juan | PP | Unavailable | + +------+ + Allergies + + + + + + | Active Allergy | Reactions | Severity | Noted | Comments | | | | | Date | | + + + + + + | Diltiazem | Rash | Medium | 11/09/20 | | | | | | 14 | | + + + + + + Current Medications + + +-------+---------+------+------+-------+ | Prescription | Sig. | Disp. | Refills | Star | End | Statu | | | | | | t | Date | s | | | | | | Date | | | + + +-------+---------+------+------+-------+ | ciprofloxacin | Take 500 mg by mouth | | | | | Activ | | (CIPRO) 500 MG | 2 (two) times | | | | | e | | tablet | daily. | | | | | | + + +-------+---------+------+------+-------+ | FLUTICASONE | Inhale 50 mcg into | | | | | Activ | | PROPIONATE HFA IN | the lungs. | | | | | e | + + +-------+---------+------+------+-------+ | flecainide | Take 100 mg by mouth | | | | | Activ | | (TAMBOCOR) 100 MG | 2 (two) times | | | | | e | | tablet | daily. | | | | | | + + +-------+---------+------+------+-------+ | simvastatin | Take 40 mg by mouth | | | | | Activ | | (ZOCOR) 40 MG tablet | nightly. | | | | | e | + + +-------+---------+------+------+-------+ | | Take 50 mg by mouth | | | | | Activ | | hydrochlorothiazide | daily. | | | | | e | | (HYDRODIURIL) 50 MG | | | | | | | | tablet | | | | | | | + + +-------+---------+------+------+-------+ | | Take 1 tablet by | | | | | Activ | | HYDROcodone-acetamin | mouth every 6 (six) | | | | | e | | ophen (NORCO) 5-325 | hours as needed for | | | | | | | MG per tablet | Pain. | | | | | | + + +-------+---------+------+------+-------+ | allopurinol | Take 300 mg by mouth | | | | | Activ | | (ZYLOPRIM) 300 MG | daily. | | | | | e | | tablet | | | | | | | + + +-------+---------+------+------+-------+ | potassium chloride | Take 10 mEq by mouth | | | | | Activ | | (K-DUR) 10 MEQ | daily. | | | | | e | | tablet | | | | | | | + + +-------+---------+------+------+-------+ | tadalafil (CIALIS) | Take 20 mg by mouth | | | | | Activ | | 20 MG tablet | as needed for | | | | | e | | | Erectile | | | | | | | | Dysfunction. | | | | | | + + +-------+---------+------+------+-------+ | omeprazole | Take 20 mg by mouth | | | | | Activ | | (PRILOSEC) 20 MG | every morning before | | | | | e | | capsule | breakfast. | | | | | | + + +-------+---------+------+------+-------+ Active Problems + + + | Problem | Noted Date | + + + | Hematuria, unspecified | 11/09/2014 | + + + | Pulmonary emboli | 11/09/2014 | + + + | Obesity, unspecified | 11/09/2014 | + + + | HTN (hypertension) | 11/09/2014 | + + + | BPH (benign prostatic hyperplasia) | 11/09/2014 | + + + | S/P prostatectomy | 11/09/2014 | + + + | JEAN (obstructive sleep apnea) | 11/09/2014 | + + + | Paroxysmal a-fib | 11/09/2014 | + + + Family History + + +------+ + | Medical History | Relation | Name | Comments | + + +------+ + | Cancer | Brother | | | + + +------+ + | Cancer | Father | | | + + +------+ + | Kidney disease | Father | | | + + +------+ + | Heart defect | Sister | | | + + +------+ + | Heart disease | Sister | | | + + +------+ + | Hypertension | Sister | | | + + +------+ + + +------+--------+ + | Relation | Name | Status | Comments | + +------+--------+ + | Brother | | | | + +------+--------+ + | Father | | | | + +------+--------+ + | Sister | | | | + +------+--------+ + Social History + +-------+ +--------+------+ | Tobacco Use | Types | Packs/Day | Years | Date | | | | | Used | | + +-------+ +--------+------+ | Never Smoker | | | | | + +-------+ +--------+------+ + + +---------+ + | Alcohol Use | Drinks/We | oz/Week | Comments | | | ek | | | + + +---------+ + | No | | | | + + +---------+ + + + + | Sex Assigned at | Date Recorded | | | | + + + | Not on file | | + + + Last Filed Vital Signs + + + + | Vital Sign | Reading | Time Taken | + + + + | Blood Pressure | 117/64 | 11/09/2014 11:27 AM PST | + + + + | Pulse | 60 | 11/09/2014 11:27 AM PST | + + + + | Temperature | 37.1 C (98.7 F) | 11/09/2014 11:27 AM PST | + + + + | Respiratory Rate | 18 | 11/09/2014 11:27 AM PST | + + + + | Oxygen Saturation | 97% | 11/09/2014 11:27 AM PST | + + + + | Inhaled Oxygen | - | - | | Concentration | | | + + + + | Weight | 117.9 kg (259 lb | 11/09/2014 5:00 AM PST | | | 14.8 oz) | | + + + + | Height | 177.8 cm (5' 10") | 11/09/2014 5:00 AM PST | + + + + | Body Mass Index | 37.29 | 11/09/2014 5:00 AM PST | + + + + Plan of Treatment + + + + + | Health Maintenance | Due Date | Last Done | Comments | + + + + + | Vaccine: | | | | | Dtap/Tdap/Td (1 - | 5 | | | | Tdap) | | | | + + + + + | Vaccine: Zoster (1 | | | | | of 2) | 6 | | | + + + + + | Vaccine: | | | | | Pneumococcal 65+ | 1 | | | | Low/Medium Risk (1 | | | | | of 2 - PCV13) | | | | + + + + + | Vaccine: Influenza | | | | | (Season Ended) | 0 | | | + + + + + Results Not on filefrom Last 3 Months Insurance + +--------+ +------+-------+ + | Payer | Benefi | Subscriber | Type | Phone | Address | | | t Plan | ID | | | | | | / | | | | | | | Group | | | | | + +--------+ +------+-------+ + | MEDICARE | MEDICA | [id number] | | | [address] | | | RE | | | | [place] [address] | | | IP-OP | | | | | + +--------+ +------+-------+ + | COMMERCIAL OTHER | COMMER | [id number] | | | | | | CIAL | | | | | | | GENERI | | | | | | | C PLAN | | | | | + +--------+ +------+-------+ + + +--------+ +--------+ + + | Guarantor Name | Accoun | Relation to | Date | Phone | Billing Address | | | t Type | Patient | of | | | | | | | | | | + +--------+ +--------+ + + | AWAIS BROWN | Person | Self [birth year] Home: | [address] | | | al/Fam | | 1945 | [phone] [place] | | | [place] | | | [phone] | [address] | + +--------+ +--------+ + +
--- OUTSIDE RECORDS SUMMARY | ~2020-03-26 | XMS | Encounter Summary ---
Demographics + + + | Address | [address] | | | [place] [address] | + + + | Home Phone [...] | [facility] | | | and [place] | + + + | Organization | [facility] [...] [place], [place] | | | | | [address] | | + + + + + | Floyd Herndon | ECON | NA | | | | | NA, | | + + + + + Care Team Providers + +------+ + | Care Landscape Foreman Name | Role | Phone | + [...] | Closed | | | Diagnoses | [place], | OP ST | | | | | Art | Jordin Garcia MD | [place] | | | | | hematuria | [address] | | | | | Procedures | AVE [place] | [address] | | | | | CT Urogram w | [place], [place] | AVE | | | | | wo Contrast | [address] | [place] | | | | | [address] | Phone: | [phone] | | | | | SCAN,ABDOMEN | [phone] | Phone: | | | | | T AND | Fax: | [phone] | | | | | PELVIS,COMBO | [phone] | Fax: | | | | | | | [phone] | +--------+--------+ + + + + Reason for Visit + + + | Reason | Comments | + + + | Hematuria | | + + + Encounter Details +--------+---------+ + + + | Date | Type | Department | Care Team | Description | +--------+---------+ + + + | 08/21/ | Office | [facility] | Jordin Padron, | Gross hematuria | | 2013 | Visit | [address] | MD [address] | (Primary Dx); PSA, | | | | CODI Griffiths | [place] | INCREASED; | | | | [address] | [address] | Hypertrophy of | | | | [phone] | | prostate with | | | [...] pelvis with cont rast on 09/01/2010 at [facility] demonstrated normal appearing kidneys , bladder wall thickening, but no renal masses. Dr. Thurman's PSA has also been abnormal. Prostate biopsies on 09/04/2009 and 04/28/2012 were negative. PSA on 03/27/2010 was 8.75. PSA on 10/20/2011 was 7.43. PSA on 03/30/2012 was 6.5 2. CANT HOOKER 3 on 04/04/2012 was normal at 6.2. [...] capsule 4 capsules by mouth at bedtime [place]-3 Fatty Acids (EQL FISH OIL) 1000 MG [...] t is made to edit the content, clerical assigner errors may occur. Nano Lyn CMA - 08/21/2014 8:52 AM PDTConsen t form signed & time out form completed Sent to [facility] for cytology via cancer program coordinator. documented in this e ncounter Plan of Treatment + +---------+--------+ + + | Name | [...] | 1.005 | | | | | [place], | | | | | | UA, [...]
--- OUTSIDE RECORDS SUMMARY | ~2020-03-26 | XMS | Encounter Summary ---
Demographics + + + | Address | [address] | | | [place] [address] | + + + | Home Phone [...] | Author | [facility] | | | and [place] | + + + | Organization | [facility] [...] [place] | | | | | [address] | | + + + + + | Floyd Herndon | ECON | NA | | | | | NA, | | + + + + + Care Team Providers + +------+ + | Care Photographer Name | Role | Phone | [...] + | 07/20/ | Telephone | [facility] | Beltran Fields, | Medication Refill | | 2013 | | MEDICINE [facility] All | [address] | | | | | [facility] | [address] [address] [place], | | | | | [place] [address] | [place] [address] | | | | | [phone] | [phone] | | | | | | | [...]
--- OUTSIDE RECORDS SUMMARY | ~2020-03-26 | XMS | Encounter Summary ---
Demographics + + + | Address | [address] | | | [place] [address] | + + + | Home Phone [...] Author | [facility] | | | and [place] | + + + | Organization | [facility] | | | and [place] | + + + | Address | Unknown | + + + | Phone | Unavailable | + + + Support + + + + + | Name | Relationship | Address | Phone | + + + + + | Yuliet Crow | ECON | [address] | | | | | [place] | | | | | [address] | | + + + + + | Floyd Herndon | ECON | NA | | | | | NA, | | + + + + + Care Team Providers + +------+ + | Care Operations Program Manager Name | Role | Phone | [...] | 11/10/ | Refill | [facility] [place] [facility] | Beltran Fields, | Medication Refill | | 2012 | | MEDICINE [facility] All | [address] [place] [address] | | | | | [facility] | [address] [place], | | | | | [place] [address] | [place] [address] | | | | | [phone] | [phone] | | | | | | | [...]
--- OUTSIDE RECORDS SUMMARY | ~2020-03-26 | XMS | Encounter Summary ---
Demographics + + + | Address | [address] | | | [place] [address] | + + + | Home Phone [...] | Author | [facility] | | | and [place] | + + + | Organization | [facility] [...] [place] | | | | | [address] | | + + + + + | Floyd Herndon | ECON | NA | | | | | NA, | | + + + + + Care Team Providers + +------+ + | Care Shear Operator Helper Name | Role | Phone | [...] + + | 11/13/ | Office | [facility] | Jordin Padron, | PSA, INCREASED | | 2012 | Visit | [address] | MD [address] | (Primary Dx); | | | | CODI Griffiths | [place] | Microhematuria; BPH | | | | [address] | [address] | (benign prostatic | | | | [phone] | | hyperplasia); Other | | | [...] capsule 4 capsules by mouth at bedtime [place]-3 Fatty Acids (EQL FISH OIL) 1000 MG [...] Jordin Abebe MD - 11/13/2013 12:00 AM [facility] [address] [place] [address] FAX: [phone] Thurman is a 68-year-old [...] pel vis with contrast on 09/01/2010 at [facility] demonstrated normal yue earing kidneys, [...] over 50% of this time spent in [facility] regarding his abnormal PSA and marked prostatic [...] biopsy performed. If his PSA return to [facility], continued observation may be elected. Guy [...] Padron MD / [facility] JOB #: [id number] signed by Jordin Padron MD at 11/14/2013 [...] - 1.030 | [facility] | | | [place], | | | [facility] | | [...] + | [facility] | [address] | [place], [place] | [phone] | | [facility] | | [address] | | | - LABORATORY | | | | + + + + + | [facility] | [address] | [place], [place] | | | [facility] | | [id number] | | | - LABORATORY [...] | 1.005 | | | | | [place], | | | | | | UA, [...]
--- OUTSIDE RECORDS SUMMARY | ~2020-03-26 | XMS | Encounter Summary ---
Demographics + + + | Address | [address] | | | [place] [address] | + + + | Home Phone [...] + | Author | [facility] | | | and [place] | + + + | Organization | [facility] | | [...] [place] | | | | | [address] | | + + + + + | Floyd Herndon | ECON | NA | | | | | NA, | | + + + + + Care Team Providers + +------+ + | Care Cheese Maker Name | Role | Phone | [...] + | 05/08/ | Telephone | [facility] | Beltran Fields, | Other | | 2015 | | MEDICINE [address] | [address] | | | | | Street [place] | [address] [place], | | | | | [place] [address] | [place] [address] | | | | | [phone] | [phone] | | | | | | | [...]
--- OUTSIDE RECORDS SUMMARY | ~2020-03-26 | XMS | Encounter Summary ---
Demographics + + + | Address | [address] | | | [place] [address] | + + + | Home Phone [...] Author | [facility] | | | and [place] | + + + | Organization | [facility] | | | [...] [place] | | | | | [address] | | + + + + + | Floyd Herndon | ECON | NA | | | | | NA, | | + + + + + Care Team Providers + +------+ + | Care Road Equipment Operator Name | Role | Phone [...] | Dx); Other | | | | Street [place] | [address] [place], | hyperlipidemia; | | | | [place] [address] | [place] [address] | Other iron | | | | [phone] | 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 Orders entered in [facility] and sent to front to be faxed to Marlene [place] per . documented in this enco unter Plan of Treatment + +------+--------+ + + [...]
--- OUTSIDE RECORDS SUMMARY | ~2020-03-26 | XMS | Encounter Summary ---
Demographics + + + | Address | [address] | | | [place] [address] | + + + | Home Phone [...] | Author | [facility] | | | and [place] | + + + | Organization | [facility] | | [...] [place] | | | | | [address] | | + + + + + | Floyd Herndon | ECON | NA | | | | | NA, | | + + + + + Care Team Providers + +------+ + | Care Zipper Lining Folder Name | Role | Phone | + [...] | 11/26/ | Refill | [facility] [place] [facility] | Beltran Fields, | Medication Refill | | 2016 | | MEDICINE [facility] All | [address] [place] [address] | | | | | Conifer Yves | [address] [place], | | | | | [place] [address] | [place] [address] | | | | | [phone] | [phone] | | | | | | | [...]
--- OUTSIDE RECORDS SUMMARY | ~2020-03-26 | XMS | Encounter Summary ---
Demographics + + + | Address | [address] | | | [place] [address] | + + + | Home Phone [...] + | Author | [facility] | | | and [place] | + + + | Organization | [facility] | | | [...] [place] | | | | | [address] | | + + + + + | Floyd Herndon | ECON | NA | | | | | NA, | | + + + + + Care Team Providers + +------+ + | Care Turn Sewer Name | Role | Phone | [...] | SLEEP DISORDER 401 | [address] | | | | | [address] [place] | [place] | | | | | [place] [address] | [address] | | | | | [phone] | | | +--------+ + + + [...]
--- OUTSIDE RECORDS SUMMARY | ~2020-03-26 | XMS | Encounter Summary ---
Demographics + + + | Address | [address] | | | [place] [address] | + + + | Home Phone [...] Author | [facility] | | | and [place] | + + + | Organization | [facility] | | | and [...] [place] | | | | | [address] | | + + + + + | Floyd Herndon | ECON | NA | | | | | NA, | | + + + + + Care Team Providers + +------+ + | Care Customer Support Analyst Name | Role | Phone | [...] Refill | | 2019 | | MEDICINE [place] | [address] | | | | | [address] | [address] [place], | | | | | [place] | [place] [address] | | | | | [address] | [phone] | | | | | [phone] | | | +--------+--------+ + + + [...]
--- OUTSIDE RECORDS SUMMARY | ~2020-03-26 | XMS | Encounter Summary ---
Demographics + + + | Address | [address] | | | [place] [address] | + + + | Home Phone [...] Author | [facility] | | | and [place] | + + + | Organization | [facility] | [...] [place], [place] | | | | | [address] | | + + + + + | Floyd Herndon | ECON | NA | | | | | NA, | | + + + + + Care Team Providers + +------+ + | Care Information Systems Specialist Name | Role | Phone | [...] | hyperplasia) | [address] | [place], | | | | | | [place] | [place] [address] | | | | | | [place] | Phone: | | | | | | [address] | [phone] | | | | | | Phone: | Fax: | | | | | | [phone] | [phone] | | | | | | Fax: | | | | | | | [phone] | | +--------+--------+ + + + + Encounter Details +--------+---------+ + + + | Date | Type | Department | Care Team | Description | +--------+---------+ + + + | 04/11/ | Office | [facility] | Jordin Padron, | Weak urinary stream | | 2019 | Visit | [address] | MD [address] | (Primary Dx); S/P | | | | CODI Griffiths | [place] | prostatectomy; | | | | [address] | [address] | Preventative health | | | | [phone] | | care | +--------+---------+ + + [...] be treated for their cancer. But heal [facility] providers can t always tell [...] were to have treatment Date Last Reviewed: 04/15/[id number] [employer] [place] [address]. All righ ts reserved. 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 Brumfield in mid April 2015. About 1 week later, he experienced a recurrence of gross hematuria, and Dr. Maguire perform cystoscopy with clot evacuation and fulguration of a single bleeder on 05/05/2015 at [facility]. A younger brother was treated for [...] smoke. He states that he is contemplating penitentiary next year. He has grandchildren in [place], [place], and [place]. He is . He has 1 child. His father and brother had prostate cancer. Mother a ge 94. Father age 77 with metastatic prostate cancer. 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 I spent in excess of 30 minutes [...] PROSTATECTOMY 11/02/14 (negative)/Dr Juan Brumfield of the [facility] TONSILLECTOMY VASECTOMY Outpatient Encounter Medications as of [...] per tablet one tablet by mouth daily [place]-3 Fatty Acids (EQL FISH OIL) 1000 MG [...] Living Situation: [place] since 1996 Born in [facility] REVIEW OF SYSTEMS: [] Marked [...] have not thoroughly proofread this note, and tape recording machine operator errors are likely to occur. documented in [...] 1.001 - 1.030 | | | | [place], | | | | | | UA, [...]
--- OUTSIDE RECORDS SUMMARY | ~2020-03-26 | XMS | Encounter Summary ---
Demographics + + + | Address | [address] | | | [place] [address] | + + + | Home Phone [...] Author | [facility] | | | and [place] | + + + | Organization | [facility] | | | and [place] [...] [place] | | | | | [address] | | + + + + + | Floyd Herndon | ECON | NA | | | | | NA, | | + + + + + Care Team Providers + +------+ + | Care Nurse Emergency Room Name | Role | Phone | [...] | | CODI Berg | [place] | | | | | [address] | [address] | | | | | [phone] | | | +--------+ + + + [...] [facility] | | | | [facility] | | | | + + + [...] Primary Routine general medical examination at a [facility] | | care facility | + + documented in this encounter"
--- OUTSIDE RECORDS SUMMARY | ~2020-03-26 | XMS | Encounter Summary ---
Demographics + + + | Address | [address] | | | [place] [address] | + + + | Home Phone [...] Author | [facility] | | | and [place] | + + + | Organization | [facility] | | [...] [place] | | | | | [address] | | + + + + + | Floyd Herndon | ECON | NA | | | | | NA, | | + + + + + Care Team Providers + +------+ + | Care Welt Beater Name | Role | Phone | + [...] | 12/02/ | Refill | [facility] [place] [facility] | Beltran Fields, | Medication Refill | | 2015 | | MEDICINE [facility] All | [address] [place] [address] | | | | | [place] [address] | [address] [place], | | | | | [place] [address] | [place] [address] | | | | | [phone] | [phone] | | | | | | | [...]
--- OUTSIDE RECORDS SUMMARY | ~2020-03-26 | XMS | Encounter Summary ---
Demographics + + + | Address | [address] | | | [place] [address] | + + + | Home Phone | | + + + | Preferred Language | Unknown | + + + | Marital Status | | + + + | Samaritan Affiliation | 1009 | + + + | Race | Unknown | + + + | Ethnic Group | Unknown | + + + Author + + + | Author | [facility] | | | and [place] | + + + | Organization | [facility] | | | and [place] [...] [place] | | | | | [address] | | + + + + + | Floyd Herndon | ECON | NA | | | | | NA, | | + + + + + Care Team Providers + +------+ + | Care Ophthalmologist Retina Specialist Name | Role | Phone | [...] + + | 03/28/ | Telephone | [facility] | Hien Grace | Results | | 2012 | | MEDICINE [address] | | | | | Street [place] | | | | | | [place] [address] | | | | | | [phone] | | | +--------+ + + + [...]
--- OUTSIDE RECORDS SUMMARY | ~2020-03-26 | XMS | Encounter Summary ---
Demographics + + + | Address | [address] | | | [place] [address] | + + + | Home Phone [...] Author | [facility] | | | and [place] | + + + | Organization | [facility] | | | and [...] Team Providers + +------+ + | Care Hog Grader Name | Role | Phone | [...] | 05/27/ | Refill | [facility] [place] [facility] | Beltran Fields, | Medication Refill | | 2016 | | MEDICINE [facility] All | [address] [place] [address] | | | | | [place] | [address] [place], | | | | | [place] [address] | [place] [address] | | | | | [phone] | [phone] | | | | | | | [...]
--- OUTSIDE RECORDS SUMMARY | ~2020-03-26 | XMS | Encounter Summary ---
Demographics + + + | Address | [address] | | | [place] [address] | + + + | Home Phone [...] | Author | [facility] | | | and [place] | + + + | Organization | [facility] | | | [...] [place] | | | | | [address] | | + + + + + | Floyd Herndon | ECON | NA | | | | | NA, | | + + + + + Care Team Providers + +------+ + | Care Home Demonstration Agent Name | Role | Phone | + +------+ + | Beltran Fields MD | PCP | | + +------+ + Encounter Details +--------+ + + + + | Date | Type | Department | Care Team | Description | +--------+ + + + + | 02/28/ | Abstract | [facility] [place] [facility] | Beltran Fields, | | | 2019 | | [place] | [address] | | | | | [address] | [address] [place], | | | | | [place] | [place] [address] | | | | | [address] | [phone] | | | | | [phone] | | | +--------+ + + + [...] + + | EXTERNAL LAB: SHAY | Roselyn | 02/23/2020 | | Results for this [...] encounter Results Urinalysis, Reflex Microscopic and/or Culture (02/23/2020) + [...] [facility] | [place] | [phone] | | [facility] | | [address] | | + + + + + [...] [facility] | [place] | [phone] | | [facility] | | [address] | | + + + + + [...] [address] | [place] | [phone] | | [facility] | | [address] | | + + + + + Lipid Panel (02/23/2020) + [...] + + | REFERENCE LAB | [address] [facility] | [place], [place] | [phone] | | [facility] | | [address] | | + + + + + [...] [address] | [place] | [phone] | | [facility] | | [address] | | + + + + + [...] + + | REFERENCE LAB | [address] | [place] | [phone] | | [facility] | | [address] | | + + + + + [...] - 1.03 | REFERENCE | | | [place], | | | LAB | | | [...] + + | REFERENCE LAB | [address] | [place] | [phone] | | [facility] | | [address] | | + + + + + [...] REFERENCE LAB | [address] | [place] | [phone] | | [facility] | | [address] | | + + + + + External Lab: [place] (02/23/2020) + +-------+ + + + | Component | Value | Ref Range | Performed | Pathologist | | | | | At | Signature | + +-------+ + + + | SHAY, | 11 | 6 - 23 | [...] [address] | [place] | [phone] | | [facility] | | [address] | | + + + + + [...] [facility] | [place] | [phone] | | [facility] | | [address] | | + + + + + [...] [facility] | [place], [place] | [phone] | | [facility] | | [address] | | + + + + + [...] + + + | REFERENCE LAB | [address] [facility] | [place] | [phone] | | [facility] | | [address] | | + + + + + [...] [facility] | [place] | [phone] | | [facility] | | [address] | | + + + + + [...] + + + | REFERENCE LAB | [address] [facility] | [place] | [phone] | | [facility] | | [address] | | + + + + + [...] [address] | [place] | [phone] | | [facility] | | [address] | | + + + + + [...] [facility] | [place] | [phone] | | [facility] | | [address] | | + + + + + [...] [facility] | [place] | [phone] | | [facility] | | [address] | | + + + + + [...] [facility] | [place], [place] | [phone] | | [facility] | | [address] | | + + + + + External Lab: Chloride (02/23/2020) + +-------+ + + + | [...] [facility] | [place], [place] | [phone] | | [facility] | | [address] | | + + + + + [...] + + + | REFERENCE LAB | [address] [facility] | [place] | [phone] | | [facility] | | [address] | | + + + + + [...] [facility] | [place], [place] | [phone] | | [facility] | | [address] | | + + + + + [...] [address] | [place] | [phone] | | [facility] | | [address] | | + + + + + [...] + + | REFERENCE LAB | [address] | [place] | [phone] | | [facility] | | [address] | | + + + + + [...] Health Care [facility] | [place] | [phone] | | [facility] | | [address] | | + + + + + [...] + + + | REFERENCE LAB | [address] [facility] | [place] | [phone] | | [facility] | | [address] | | + + + + + [...] [address] | [place] | [phone] | | [facility] | | [address] | | + + + + + documented in this encounter Visit Diagnoses Not on filedocumented in this encounter"
--- OUTSIDE RECORDS SUMMARY | ~2020-03-26 | XMS | Encounter Summary ---
Demographics + + + | Address | [address] | | | [place] [address] | + + + | Home Phone [...] | Author | [facility] | | | and [place] | + + + | Organization | [facility] | [...] [place] | | | | | [address] | | + + + + + | Floyd Herndon | ECON | NA | | | | | NA, | | + + + + + Care Team Providers + +------+ + | Care Grinding Machine Tender Name | Role | Phone [...] hyperlipidemia; | | | | [place] [address] | [place] [address] | Other iron | | | | [phone] | [phone] | deficiency anemia | | | | [...] sent to Marlene gomez. Orders entered in [facility] and sent to front to be faxed [...]
--- OUTSIDE RECORDS SUMMARY | ~2020-03-26 | XMS | Encounter Summary ---
Demographics + + + | Address | [address] | | | [place] [address] | + + + | Home Phone [...] + | Author | [facility] | | | and [place] | + + + | Organization | [facility] | | [...] [place] | | | | | [address] | | + + + + + | Floyd Herndon | ECON | NA | | | | | NA, | | + + + + + Care Team Providers + +------+ + | Care Barrel Racer Name | Role | Phone | + +------+ + | Beltran Fields MD | PCP | | + +------+ + Reason for Visit + + + | Reason | Comments | + + + | Leg Swelling | | + + + Encounter Details +--------+ + + + + | Date | Type | Department | Care Team | Description | +--------+ + + + + | 07/27/ | Telephone | [facility] | Beltran Fields, | Leg Swelling | | 2016 | | MEDICINE [address] | [address] | | | | | [facility] | [address] [place], | | | | | [place] [address] | [place] [address] | | | | | [phone] | [phone] | | | | | | | [...]
--- OUTSIDE RECORDS SUMMARY | ~2020-03-26 | XMS | Encounter Summary ---
Demographics + + + | Address | [address] | | | [place] [address] | + + + | Home Phone [...] | Author | [facility] | | | and [place] | + + + | Organization | [facility] | | | and [place] [...] [place] | | | | | [address] | | + + + + + | Floyd Herndon | ECON | NA | | | | | NA, | | + + + + + Care Team Providers + +------+ + | Care Dispatcher Service Name | Role | Phone | + +------+ + | Keyana Bolton MD | PCP | | + +------+ + Encounter Details +--------+ + + + + | Date | Type | Department | Care Team | Description | +--------+ + + + + | 04/28/ | Orders Only | [facility] [place] [facility] | Keayna Bolton, | Type 2 diabetes | | 2016 | | [facility] | [address] | mellitus with | | | | [address] | [address] [place], | hyperglycemia (HCC) | | | | [place] | [place] [address] | (Primary Dx); | | | | [address] | [phone] | Hyperglycemia | | | | [phone] | | | +--------+ + + + [...] PDT GUY BROWN [facility] as requiring the ser vices [...] order(s) as per your assessment - (see Phototypesetting Equipment Monitor): A1c (Hemoglobin A1c) - Already entered Microalbumin CBC w/ Differential - Already entered FLP - Already entered Urinalysis with Microscopic w/ Culture if Indicated - Already entered Route back to [facility] Disease Management Support Team by using the Follow-Up Section of the e [employer]. Thank you. documented in this encou nter [...]
--- OUTSIDE RECORDS SUMMARY | ~2020-03-26 | XMS | Encounter Summary ---
Demographics + + + | Address | [address] | | | [place] [address] | + + + | Home Phone [...] | Author | [facility] | | | and [place] | + + + | Organization | [facility] | | | [...] [place] | | | | | [address] | | + + + + + | Floyd Herndon | ECON | NA | | | | | NA, | | + + + + + Care Team Providers + +------+ + | Care Belt Notcher Name | Role | Phone | + [...] + | 07/27/ | Telephone | [facility] [place] [facility] | Beltran Fields, | Results | | 2013 | | MEDICINE [address] | [address] | | | | | Street [place] | [address] [place], | | | | | [place] [address] | [place] [address] | | | | | [phone] | [phone] | | | | | | | [...]
--- OUTSIDE RECORDS SUMMARY | ~2020-03-26 | XMS | Encounter Summary ---
Demographics + + + | Address | [address] | | | [place] [address] | + + + | Home Phone [...] | [facility] | | | and [place] | + + + | Organization | [facility] | | | and [...] [place] | | | | | [address] | | + + + + + | Floyd Herndon | ECON | NA | | | | | NA, | | + + + + + Care Team Providers + +------+ + | Care School Counsellor Name | Role | Phone | + [...] Request | | 2013 | | [address] | MD [address] | | | | | [place] | [place] | | | | | [address] | [id number] | | | | | [phone] | | | +--------+ + + + [...]
--- OUTSIDE RECORDS SUMMARY | ~2020-03-26 | XMS | Encounter Summary ---
Demographics + + + | Address | [address] | | | [place] [address] | + + + | Home Phone [...] + + | Author | [facility] | | | and [place] | + + + | Organization | [facility] | | | and [...] [place] | | | | | [address] | | + + + + + | Floyd Herndon | ECON | NA | | | | | NA, | | + + + + + Care Team Providers + +------+ + | Care Telephoto Engineer Name | Role | Phone | [...] Description | +--------+--------+ + + + | 02/02/ | Refill | [facility] [place] [facility] | Beltran Fields, | Medication Refill | | 2019 | | MEDICINE [facility] All | [address] | | | | | [place]ves | [address] [place], | | | | | [place] [address] | [place] [address] | | | | | [phone] | [phone] | | | | | | | [...]
--- OUTSIDE RECORDS SUMMARY | ~2020-03-26 | XMS | Clinical Summary ---
Demographics + + + | Address | [address] | | | [place] [address] | + + + | Home Phone [...] + | Author | [facility] | | | and [place] | + + + | Organization | [facility] | | [...] [place], [place] | | | | | [address] | | + + + + + | Floyd Herndon | ECON | NA | | | | | NA, | | + + + + + Care Team Providers + +------+ + | Care Cableman Name | Role | Phone | + [...] | | + + + +---------+------+------+-------+ | Mifflin-3 Fatty | two capsules by | | [...] biopsy 04/28/12 [facility] | | 09/04/09 [facility] | | | | PCA3 04/04/12 [facility] Negative | | | | Urine cytology 08/21/14 [facility] Negative | | 10/27/10 [facility] Negative | | | | CT abd/pel 09/01/10 [facility] | + + + + [...] + + + + | Overview: ABILIO [id number] Decision | + + + +---+ | [...] | + + + + | INFLUENZA, T2C7-14, | 11/26/2009 | | | UNSPECIFIED | [...] + + | REFERENCE LAB | [address] [facility] | [place], [place] | [phone] | | [facility] | | [address] | | + + + + + [...] + | REFERENCE LAB | [address] | [place] | [phone] | | [facility] | | [address] | | + + + + + [...] + + | REFERENCE LAB | [address] [facility] | [place] | [phone] | | [facility] | | [address] | | + + + + + [...] + + | REFERENCE LAB | [address] [facility] | [place] | [phone] | | [facility] | | [address] | | + + + + + [...] + + | REFERENCE LAB | [address] [facility] | [place] | [phone] | | [facility] | | [address] | | + + + + + [...] [address] | [place] | [phone] | | [facility] | | [address] | | + + + + + [...] + + | REFERENCE LAB | [address] [facility] | [place] | [phone] | | [facility] | | [address] | | + + + + + [...] [address] | [place] | [phone] | | [facility] | | [address] | | + + + + + [...] + + | REFERENCE LAB | [address] [facility] | [place] | [phone] | | [facility] | | [address] | | + + + + + [...] [address] | [place] | [phone] | | [facility] | | [address] | | + + + + + [...] [address] | [place] | [phone] | | [facility] | | [address] | | + + + + + [...] [address] | [place] | [phone] | | [facility] | | [address] | | + + + + + [...] + + | REFERENCE LAB | [address] [facility] | [place] | [phone] | | [facility] | | [address] | | + + + + + [...] [address] | [place] | [phone] | | [facility] | | [address] | | + + + + + [...] - 1.03 | REFERENCE | | | [place], | | | LAB | | | [...] + + | REFERENCE LAB | [address] [facility] | [place] | [phone] | | [facility] | | [address] | | + + + + + [...] + + | REFERENCE LAB | [address] [facility] | [place] | [phone] | | [facility] | | [address] | | + + + + + [...] + + | REFERENCE LAB | [address] [facility] | [place] | [phone] | | [facility] | | [address] | | + + + + + [...] + + | REFERENCE LAB | [address] [facility] | [place] | [phone] | | [facility] | | [address] | | + + + + + [...] + + + | REFERENCE LAB | [facility] | [place] | [phone] | | [facility] | | [address] | | + + + + + [...] [address] | [place] | [phone] | | [facility] | | [address] | | + + + + + [...] + + + | REFERENCE LAB | [address] [facility] | [place] | [phone] | | [facility] | | [address] | | + + + + + [...] + + | REFERENCE LAB | [address] [facility] | [place] | [phone] | | [facility] | | [address] | | + + + + + [...] + + + | REFERENCE LAB | [address] [facility] | [place] | [phone] | | [facility] | | [address] | | + + + + + [...] + + + | REFERENCE LAB | [address] [facility] | [place] | [phone] | | [facility] | | [address] | | + + + + + [...] + + | REFERENCE LAB | [address] [facility] | [place] | [phone] | | [facility] | | [address] | | + + + + + [...] [address] | [place] | [phone] | | [facility] | | [address] | | + + + + + [...] +--------+ +---------+--------+ | MEDICARE | MEDICA | [id number] | | [phone] | | Medica | | | RE | | 011-Pr | 5 | | re | | | PART A | | esent | | | | | | AND B | | | | | | + +--------+ +--------+ +---------+--------+ | MEDICARE SUPPLEMENT | MEDICA | [id number] | | [phone] | | Indemn | [...] Self | [birth year] | [address] | | | al/Fam | | 1945 | [phone] | [place] [address] | | | bossman | | | 4 (Home) | | | | | | | [phone] | | | | | | | 1 (Work) | | + +--------+ +--------+ + + Advance Directives + + + + + | Type | Date Recorded | Patient | Explanation | | | | Cut Out Machine Operator | | + + + + + | Power of | | | | | Embedded Systems Software Developer | | | | + + + + + | Advance | 11/14/2015 | | | | Directive | 12:03 PM | | | + + + + +
--- OUTSIDE RECORDS SUMMARY | ~2020-03-26 | XMS | Encounter Summary ---
Demographics + + + | Address | [address] | | | [place] [address] | + + + | Home Phone [...] Author | [facility] | | | and [place] | + + + | Organization | [facility] | [...] [place] | | | | | [address] | | + + + + + | Floyd Herndon | ECON | NA | | | | | NA, | | + + + + + Care Team Providers + +------+ + | Care Junior Project Manager Name | Role | Phone | [...] | 11/25/ | Refill | [facility] [place] [facility] | Beltran Fields, | Medication Refill | | 2016 | | MEDICINE [facility] All | [address] [place] [address] | | | | | [place] Yves | [address] [place], | | | | | [place] [address] | [place] [address] | | | | | [phone] | [phone] | | | | | | | [...]
--- OUTSIDE RECORDS SUMMARY | ~2020-03-26 | XMS | Encounter Summary ---
Demographics + + + | Address | [address] | | | [place] [address] | + + + | Home Phone [...] [facility] | | | and [place] | + + + | Organization | [facility] | | | and [place] [...] [place] | | | | | [address] | | + + + + + | Floyd Herndon | ECON | NA | | | | | NA, | | + + + + + Care Team Providers + +------+ + | Care Principal Product Manager Name | Role | Phone | [...] [place] | 05/14/14) | | | | [address] | [address] | | | | | [phone] | | | +--------+ + + + [...]
--- OUTSIDE RECORDS SUMMARY | ~2020-03-26 | XMS | Encounter Summary ---
Demographics + + + | Address | [address] | | | [place] [address] | + + + | Home Phone [...] | Author | [facility] | | | and [place] | + + + | Organization | [facility] | | [...] [place] | | | | | [address] | | + + + + + | Floyd Herndon | ECON | NA | | | | | NA, | | + + + + + Care Team Providers + +------+ + | Care Emissions Inspector Name | Role | Phone | [...] Refill | | 2020 | | MEDICINE [place] | [address] | | | | | [address] | [address] [place], | | | | | [place] | [place] [address] | | | | | [address] | [phone] | | | | | [phone] | | | +--------+--------+ + + + [...]
--- OUTSIDE RECORDS SUMMARY | ~2020-03-26 | XMS | Encounter Summary ---
Demographics + + + | Address | [address] | | | [place] [address] | + + + | Home Phone [...] | Author | [facility] | | | and [place] | + + + | Organization | [facility] | [...] [place], [place] | | | | | [address] | | + + + + + | Floyd Herndon | ECON | NA | | | | | NA, | | + + + + + Care Team Providers + +------+ + | Care Survey Party Chief Name | Role | Phone | + [...] | Specialty | Otolaryngolog | Diagnoses | Morasckushal, | Samm Maier | | | Services | y | Dry mouth | Beltran Nunn MD | [address] | | | Required | | | [address] | | | | | | [address] [place] [address] | [address] | | | | | | [place], | | | | | | [place], [place] | [place] [address] | | | | | | [address] | Phone: | | | | | | Phone: | [phone] | | | | | | [phone] | Fax: | | | | | | Fax: | [phone] | | | | | | [phone] | | +--------+ + + + + + Reason for Visit + + + | Reason | Comments | + + + | Coordination Of Care | | + + + Encounter Details +--------+ + + + + | Date | Type | Department | Care Team | Description | +--------+ + + + + | 02/22/ | Telephone | [facility] | Beltran Fields, | Coordination Of Care | | 2019 | | MEDICINE [place] | [address] | | | | | [address] | [address] [place], | | | | | [place] | [place] [address] | | | | | [address] | [phone] | | | | | [phone] | | | +--------+ + + + [...] of this encounter Plan of Treatment + + +--------+ + + | Name | Type | Priori | Associated Diagnoses | Order Schedule | | | | ty | | | + + +--------+ + + | * [facility] [place] | Outpatient | Routin | Dry mouth [...]
--- OUTSIDE RECORDS SUMMARY | ~2020-03-26 | XMS | Clinical Summary ---
Demographics + + + | Address | [address] | | | [place] [address] | + + + | Home Phone | | + + + | Preferred Language | Unknown | + + + | Marital Status | | + + + | Baptism Affiliation | Unknown | + + + | Race | Unknown | + + + | Ethnic Group | Unknown | + + + Author + + + | Author | [facility] (Historical as of | | | 07-01-19) | + + + | Organization | [facility] (Historical as of | | | 07-01-19) | + + + | Address | Unknown | + + + | Phone | Unavailable | + + + Support + + + + + | Name | Relationship | Address | Phone | + + + + + | Yuliet Crow | ECON | [address] | | | | | [place] | | | | | [address] | | + + + + + Care Team Providers + +------+ + | Care Elderly Caregiver Name | Role | Phone | [...] +------+-------+ + | MEDICARE | MEDICA | [id number] | | | [address] | | | RE | | | | [place] [address] | | | IP-OP | | | | | + +--------+ +------+-------+ + | COMMERCIAL OTHER | COMMER | [id number] | | | | | | CIAL [...] | | al/Fam | | 1945 | [phone] | [place] | | | bossman | | | [phone] | [address] | + +--------+ +--------+ + +
--- OUTSIDE RECORDS SUMMARY | ~2020-03-26 | XMS | Encounter Summary ---
Demographics + + + | Address | [address] | | | [place] [address] | + + + | Home Phone [...] | Author | [facility] | | | and [place] | + + + | Organization | [facility] | | | and [place] [...] [place] | | | | | [address] | | + + + + + | Floyd Herndon | ECON | NA | | | | | NA, | | + + + + + Care Team Providers + +------+ + | Care Vice President Tax Name | Role | Phone | + [...] Refill | | 2019 | | MEDICINE [place] | [address] | | | | | [address] | [address] [place], | | | | | [place] | [place] [address] | | | | | [address] | [phone] | | | | | [phone] | | | +--------+--------+ + + + [...]
--- OUTSIDE RECORDS SUMMARY | ~2020-03-26 | XMS | Encounter Summary ---
Demographics + + + | Address | [address] | | | [place] [address] | + + + | Home Phone | | + + + | Preferred Language | Unknown | + + + | Marital Status | | + + + | [employer] Affiliation | 1009 | + + + | Race | Unknown | + + + | Ethnic Group | Unknown | + + + Author + + + | Author | [facility] | | | and [place] | + + + | Organization | [facility] | [...] [place] | | | | | [address] | | + + + + + | Floyd Herndon | ECON | NA | | | | | NA, | | + + + + + Care Team Providers + +------+ + | Care Commercial Real Estate Agent Name | Role | Phone | [...] antigen | | | | [place] | [place] | (PSA) (Primary Dx); | | | | [address] | [address] | Family history of | | | | [phone] | | prostate cancer | +--------+ + [...]
--- OUTSIDE RECORDS SUMMARY | ~2020-03-26 | XMS | Encounter Summary ---
Demographics + + + | Address | [address] | | | [place] [address] | + + + | Home Phone [...] Author | [facility] | | | and [place] | + + + | Organization | [facility] | | | and [place] [...] [place] | | | | | [address] | | + + + + + | Floyd Herndon | ECON | NA | | | | | NA, | | + + + + + Care Team Providers + +------+ + | Care Lamp Mechanic Name | Role | Phone | [...] + + | 02/02/ | Office | [facility] | Beltran Fields, | Other hyperlipidemia | | 2017 | Visit | MEDICINE [address] [place] [address] | [address] | (Primary Dx); | | | | Street [place] | [place] [address] [place], | Essential | | | | [place] [address] | [place] [address] | hypertension, | | | | [phone] | [phone] | benign; History of | | | [...] per Cardiology Dr Niranjan Luevano MD in [place]. 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 He is . 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 He lives in [place], [place]. 9 living Grandchildren. Review of Systems [...] APNEA ATRIAL FIBRILLATION WITH [facility] 02/06/08 - 03/08/08 PSA, INCREASED GROSS HEMATURIA [...] capsule 4 capsules by mouth at bedtime [place]-3 Fatty Acids (EQL FISH OIL) 1000 MG [...] as PCP - General Current Medicare Suppliers: [email or web address] #[id number] - [place], [place] - [address] [place] [address] Immunizations Immunization History Administered Date(s) Administered INFLUENZA QUADR W/PRES (PED/ADOL/ADULT) MULTIDOSE 08/29/2014, 09/14/2016 INFLUENZA, W/Preservative 07/26/2013 Preventative Care and Screening (Attestation) The following health maintenance items are reviewed in [facility] and correct as of today: Health [...] regular Exercise: USPSTF ex recs reviewed Immunizations: [facility] Screening Labs: Ordered Screening Exams: [facility] HEALTH RISK APPRAISAL (Attestation) Health Risk Assessment [...]
--- OUTSIDE RECORDS SUMMARY | ~2020-03-26 | XMS | Encounter Summary ---
Demographics + + + | Address | [address] | | | [place] [address] | + + + | Home Phone [...] | Author | [facility] | | | and [place] | + + + | Organization | [facility] [...] [place] | | | | | [address] | | + + + + + | Floyd Herndon | ECON | NA | | | | | NA, | | + + + + + Care Team Providers + +------+ + | Care Payroll Lead Name | Role | Phone | [...] Orders | | 2019 | | MEDIC[facility] [place] | [address] | | | | | [address] | [address] [place], | | | | | [place] | [place] [address] | | | | | [address] | [phone] | | | | | [phone] | | | +--------+ + + + [...]
--- OUTSIDE RECORDS SUMMARY | ~2020-03-26 | XMS | Encounter Summary ---
Demographics + + + | Address | [address] | | | [place] [address] | + + + | Home Phone [...] | Author | [facility] | | | and [place] | + + + | Organization | [facility] | | [...] [place], [place] | | | | | [address] | | + + + + + | Floyd Herndon | ECON | NA | | | | | NA, | | + + + + + Care Team Providers + +------+ + | Care Certified Indoor Environmentalist Name | Role | Phone | + [...] is | AVE [address] | [place] | | | | | | [place] | [place] | | | | | | [place], [place] | [address] Phone: | | | | | | [address] | [phone] | | | | | | Phone: | Fax: | | | | | | [phone] | [phone] | | | | | | Fax: | | | | | | | [phone] | | +--------+ + + + + + Reason for Visit + + + | Reason | Comments | + + + | Knee Pain | Left | + + + Encounter Details +--------+---------+ + + + | Date | Type | Department | Care Team | Description | +--------+---------+ + + + | 03/24/ | Office | [facility] [place] [facility] | Beltran Fields, | Hyperlipidemia | | 2012 | Visit | MEDICINE [place] | [address] | (Primary Dx); IGT | | | | [address] | [address] [place], | (impaired glucose | | | | [place], [place] | [place] [address] | tolerance); | | | | [address] | [phone] | Paroxysmal a-fib | | | | [phone] | | ([facility]); | | | | | | Osteoarthritis [...] encounter Progress Notes Beltran Fields MD - 03/24/2013 9:54 AM PDTFormatting of [...] child and 3 stepchildren. He lives in [place], [place]. 9 living Grandchildren. Review of Systems [...] with labs prior. documented in this encounter Plan of Treatment + + [...] + | [facility] | [address] | [place] | [phone] | | [facility] | | [address] | | | - LABORATORY | | | | + + + + + | [facility] | [address] | [place] | | | [facility] | | [id number] [place] [address] | | | - LABORATORY | | [...]
--- OUTSIDE RECORDS SUMMARY | ~2020-03-26 | XMS | Encounter Summary ---
Demographics + + + | Address | [address] | | | [place] [address] | + + + | Home Phone [...] | Author | [facility] | | | and [place] | + + + | Organization | [facility] | | [...] [place] | | | | | [address] | | + + + + + | Floyd Herndon | ECON | NA | | | | | NA, | | + + + + + Care Team Providers + +------+ + | Care Physical Science Teacher Name | Role | Phone | [...] | 05/02/ | Refill | [facility] [place] [facility] | Beltran Fields, | Medication Refill | | 2014 | | MEDICINE [facility] All | [address] [place] [address] | | | | | [place] | [address] [place], | | | | | [place] [address] | [place] [address] | | | | | [phone] | [phone] | | | | | | | [...]
--- OUTSIDE RECORDS SUMMARY | ~2020-03-26 | XMS | Encounter Summary ---
Demographics + + + | Address | [address] | | | [place] [address] | + + + | Home Phone [...] | Author | [facility] | | | and [place] | + + + | Organization | [facility] | | [...] [place] | | | | | [address] | | + + + + + | Floyd Herndon | ECON | NA | | | | | NA, | | + + + + + Care Team Providers + +------+ + | Care Supervisor Contact Lens Name | Role | Phone | + +------+ + | Betlran Fields MD | PCP | | + +------+ + Encounter Details +--------+ + + + + | Date | Type | Department | Care Team | Description | +--------+ + + + + | 12/16/ | Orders Only | [facility] [place] [facility] | Jordin Padron, | Prostatic | | 2016 | | [address] | MD [address] | hyperplasia (Primary | | | | [place], [place] | [place], [place] | Dx); Family history | | | | [address] | [address] | of prostate cancer; | | | | [phone] | | History of elevated | | | | | | PSA | +--------+ + + + + Social [...] PSA, Diagnostic | Lab | Routin | Prostatic | Expected: 12/10/2016 | | | | e | hyperplasia Family | (Approximate), | | | | | history of prostate | Expires: 12/15/2017 | | | | | cancer History of | | | | | | elevated PSA | | + +------+--------+ + + documented as of this encounter Visit Diagnoses + + | Diagnosis | + + | Prostatic hyperplasia - Primary Unspecified hyperplasia of prostate without urinary | | obstruction and other lower urinary tract symptoms (LUTS) | + + | Family history of prostate cancer Family history of malignant neoplasm of prostate | + + | History of elevated PSA Personal history of other specified diseases | + + documented in this encounter"
--- OUTSIDE RECORDS SUMMARY | ~2020-03-26 | XMS | Encounter Summary ---
Demographics + + + | Address | [address] | | | [place] [address] | + + + | Home Phone [...] | Author | [facility] | | | and [place] | + + + | Organization | [facility] | | | and [place] [...] [place] | | | | | [address] | | + + + + + | Floyd Herndon | ECON | NA | | | | | NA, | | + + + + + Care Team Providers + +------+ + | Care Director Of Infection Prevention Name | Role | Phone | + [...] [place] | | | | | [address] | [address] | | | | | [phone] | | | +--------+ + + + [...]
--- OUTSIDE RECORDS SUMMARY | ~2020-03-26 | XMS | Encounter Summary ---
Demographics + + + | Address | [address] | | | [place] [address] | + + + | Home Phone [...] + | Author | [facility] | | | and [place] | + + + | Organization | [facility] | [...] [place] | | | | | [address] | | + + + + + | Floyd Herndon | ECON | NA | | | | | NA, | | + + + + + Care Team Providers + +------+ + | Care Senior Risk Manager Name | Role | Phone | [...] + | 11/22/ | Office | [facility] | Beltran Fields, | Paroxysmal a-fib | | 2015 | Visit | MEDICINE [address] | [address] | (Primary Dx); | | | | Street [place] | [address] [place], | Essential | | | | [place] [address] | [place] [address] | hypertension, | | | | [phone] | [phone] | benign; | | | | | [...] Recent prostatectomy, BPH, Elevated PSA, Removed at [facility][1]. The surgery went otherwise fine. Performed by [...] per Cardiology Dr Niranjan Luevano MD in [place]. He underwent a st ressecho test this [...] child and 3 stepchildren. He lives in [place], [place]. 9 living Grandchildren. Review of Systems [...]
--- OUTSIDE RECORDS SUMMARY | ~2020-03-26 | XMS | Encounter Summary ---
Demographics + + + | Address | [address] | | | [place] [address] | + + + | Home Phone [...] | Author | [facility] | | | and [place] | + + + | Organization | [facility] | | | and [place] [...] [place] | | | | | [address] | | + + + + + | Floyd Herndon | ECON | NA | | | | | NA, | | + + + + + Care Team Providers + +------+ + | Care Security Assurance Analyst Name | Role | Phone | [...] | 11/18/ | Refill | [facility] [place] [facility] | Beltran Fields, | Medication Refill | | 2019 | | MEDICINE [facility] All | [address] | | | | | [place] | [address] [place], | | | | | [place] [address] | [place] [address] | | | | | [phone] | [phone] | | | | | | | [...]
--- OUTSIDE RECORDS SUMMARY | ~2020-03-26 | XMS | Encounter Summary ---
Demographics + + + | Address | [address] | | | [place] [address] | + + + | Home Phone | | + + + | Preferred Language | Unknown | + + + | Marital Status | | + + + | Shinto Affiliation | 1009 | + + + | Race | Unknown | + + + | Ethnic Group | Unknown | + + + Author + + + | Author | [facility] | | | and [place] | + + + | Organization | [facility] [...] [place] | | | | | [address] | | + + + + + | Floyd Herndon | ECON | NA | | | | | NA, | | + + + + + Care Team Providers + +------+ + | Care Fire Code Inspector Name | Role | Phone | [...] | RN | | | | | [place], | | | | | | [place] [address] | | | | | | [phone] | | | +--------+ + + + [...]
--- OUTSIDE RECORDS SUMMARY | ~2020-03-26 | XMS | Encounter Summary ---
Demographics + + + | Address | [address] | | | [place] [address] | + + + | Home Phone [...] | Author | [facility] | | | and [place] | + + + | Organization | [facility] | [...] [place] | | | | | [address] | | + + + + + | Floyd Herndon | ECON | NA | | | | | NA, | | + + + + + Care Team Providers + +------+ + | Care Solar Sales Specialist Name | Role | Phone [...] + | 11/14/ | Office | [facility] | Beltran Fields, | Paroxysmal a-fib | | 2014 | Visit | MEDICINE [address] | [address] | (Primary Dx); Other | | | | Street [place] | [address] [place], | hyperlipidemia; | | | | [place] [address] | [place] [address] | Essential | | | | [phone] | [phone] | hypertension, | | | | | [...] bid per Cardiology Taylor Luevano MD in [place]. 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 He lives in [place], [place]. 9 living Grandchildren. Review of Systems [...]
--- OUTSIDE RECORDS SUMMARY | ~2020-03-26 | XMS | Encounter Summary ---
Demographics + + + | Address | [address] | | | [place] [address] | + + + | Home Phone [...] | Author | [facility] | | | and [place] | + + + | Organization | [facility] | | | and [place] [...] [place] | | | | | [address] | | + + + + + | Floyd Herndon | ECON | NA | | | | | NA, | | + + + + + Care Team Providers + +------+ + | Care Clark Driver Name | Role | Phone | [...] + + | 08/14/ | Refill | [facility] | Beltran Fields, | Medication Refill | | 2013 | | MED CTR LABORATORY | [address] | | | | | [address] [place] | [address] [place] [place], | | | | | [place], [place] | [place] [address] | | | | | [address] | [phone] | | | | | [phone] | | | +--------+--------+ + + + [...]
--- OUTSIDE RECORDS SUMMARY | ~2020-03-26 | XMS | Encounter Summary ---
Demographics + + + | Address | [address] | | | [place] [address] | + + + | Home Phone [...] | Author | [facility] | | | and [place] | + + + | Organization | [facility] | [...] [place] | | | | | [address] | | + + + + + | Floyd Herndon | ECON | NA | | | | | NA, | | + + + + + Care Team Providers + +------+ + | Care Groundman Name | Role | Phone | + [...] | | | [place] | [place] | | | | | [address] | [address] | | | | | [phone] | | | +--------+ + + + [...]
--- OUTSIDE RECORDS SUMMARY | ~2020-03-26 | XMS | Encounter Summary ---
Demographics + + + | Address | [address] | | | [place] [address] | + + + | Home Phone [...] Author | [facility] | | | and [place] | + + + | Organization | [facility] | [...] [place] | | | | | [address] | | + + + + + | Floyd Herndon | ECON | NA | | | | | NA, | | + + + + + Care Team Providers + +------+ + | Care Supervisor Pastry Name | Role | Phone | + [...] | 02/28/ | Refill | [facility] [place] [facility] | Beltran Fields, | Medication Refill | | 2017 | | MEDICINE [facility] All | [address] | | | | | [place] | [address] [place], | | | | | [place] [address] | [place] [address] | | | | | [phone] | [phone] | | | | | | | [...]
--- OUTSIDE RECORDS SUMMARY | ~2020-03-26 | XMS | Encounter Summary ---
Demographics + + + | Address | [address] | | | [place] [address] | + + + | Home Phone [...] + | Author | [facility] | | | and [place] | + + + | Organization | [facility] | | | and [...] [place] | | | | | [address] | | + + + + + | Floyd Herndon | ECON | NA | | | | | NA, | | + + + + + Care Team Providers + +------+ + | Care Printing Manager Name | Role | Phone | [...] | 02/08/ | Refill | [facility] [place] [facility] | Beltran Fields, | Medication Refill | | 2017 | | MEDICINE [facility] | [address] | | | | | [place] | [address] [place], | | | | | [place] [address] | [place] [address] | | | | | [phone] | [phone] | | | | | | | [...]
--- OUTSIDE RECORDS SUMMARY | ~2020-03-26 | XMS | Encounter Summary ---
Demographics + + + | Address | [address] | | | [place] [address] | + + + | Home Phone [...] Author | [facility] | | | and [place] | + + + | Organization | [facility] [...] [place] | | | | | [address] | | + + + + + | Floyd Herndon | ECON | NA | | | | | NA, | | + + + + + Care Team Providers + +------+ + | Care Drift Miner Name | Role | Phone | + [...] | 04/23/ | Refill | [facility] [place] [facility] | Beltran Fields, | Medication Refill | | 2013 | | MEDICINE [facility] All | [address] [place] [address] | | | | | [facility] | [address] [place], | | | | | [place] [address] | [place] [address] | | | | | [phone] | [phone] | | | | | | | [...]
--- OUTSIDE RECORDS SUMMARY | ~2020-03-26 | XMS | Encounter Summary ---
Demographics + + + | Address | [address] | | | [place] [address] | + + + | Home Phone [...] | Author | [facility] | | | and [place] | + + + | Organization | [facility] | | | and [...] [place] | | | | | [address] | | + + + + + | Floyd Herndon | ECON | NA | | | | | NA, | | + + + + + Care Team Providers + +------+ + | Care Senior Functional Analyst Name | Role | Phone | [...] | specific antigen | | | | [place], [place] | [place], [place] | (PSA) (Primary Dx) | | | | [address] | [address] | | | | | [phone] | | | +--------+ + + + [...]
--- OUTSIDE RECORDS SUMMARY | ~2020-03-26 | XMS | Encounter Summary ---
Demographics + + + | Address | [address] | | | [place] [address] | + + + | Home Phone [...] + | Author | [facility] | | | and [place] | + + + | Organization | [facility] | | [...] [place] | | | | | [address] | | + + + + + | Floyd Herndon | ECON | NA | | | | | NA, | | + + + + + Care Team Providers + +------+ + | Care Bun Machine Operator Name | Role | Phone [...] + | 03/28/ | Telephone | [facility] | Hien Grace | Results | | 2012 | | MEDICINE [address] | | | | | Street [place] | | | | | | [place] [address] | | | | | | [phone] | | | +--------+ + + + [...]
--- OUTSIDE RECORDS SUMMARY | ~2020-03-26 | XMS | Encounter Summary ---
Demographics + + + | Address | [address] | | | [place] [address] | + + + | Home Phone [...] + + | Author | [facility] | | | and [place] | + + + | Organization | [facility] | | [...] [place] | | | | | [address] | | + + + + + | Floyd Herndon | ECON | NA | | | | | NA, | | + + + + + Care Team Providers + +------+ + | Care Applications Scientist Name | Role | Phone | + +------+ + PCP | Unavailable | + +------+ + Encounter Details +--------+ + + + + | Date | Type | Department | Care Team | Description | +--------+ + + + + | 11/24/ | Hospital | [facility] | | | | 2006 | Encounter | [facility] CTR LAB[facility]ORY | | | | | | [address] | | | | | | [place] | | | | | | [address] | | | | | | [phone] | | | +--------+ + + + [...]
--- OUTSIDE RECORDS SUMMARY | ~2020-03-26 | XMS | Encounter Summary ---
Demographics + + + | Address | [address] | | | [place] [address] | + + + | Home Phone [...] Author | [facility] | | | and [place] | + + + | Organization | [facility] | | | and [place] | [...] [place] | | | | | [address] | | + + + + + | Floyd Herndon | ECON | NA | | | | | NA, | | + + + + + Care Team Providers + +------+ + | Care Baseball Glove Stuffer Name | Role | Phone | + [...] + | 07/27/ | Telephone | [facility] | Beltran Fields, | Leg Swelling | | 2016 | | MEDICINE [address] | [address] | | | | | [facility] | [address] [place], | | | | | [place] [address] | [place] [id number] | | | | | [phone] | [phone] | | | | | | | [...]
--- OUTSIDE RECORDS SUMMARY | ~2020-03-26 | XMS | Encounter Summary ---
Demographics + + + | Address | [address] | | | [place] [address] | + + + | Home Phone [...] | Author | [facility] | | | and [place] | + + + | Organization | [facility] | | [...] [place] | | | | | [address] | | + + + + + | Floyd Herndon | ECON | NA | | | | | NA, | | + + + + + Care Team Providers + +------+ + | Care Sponsorship Manager Name | Role | Phone | [...] Refill | | 2012 | | MEDICINE [place] | [address] | | | | | [address] | [address] [place], | | | | | [place] | [place] [address] | | | | | [address] | [phone] | | | | | [phone] | | | +--------+--------+ + + + [...]
--- OUTSIDE RECORDS SUMMARY | ~2020-03-26 | XMS | Encounter Summary ---
Demographics + + + | Address | [address] | | | [place] [address] | + + + | Home Phone [...] | Author | [facility] | | | and [place] | + + + | Organization | [facility] | | | and [...] [place] | | | | | [address] | | + + + + + | Floyd Herndon | ECON | NA | | | | | NA, | | + + + + + Care Team Providers + +------+ + | Care Sanitation Officer Name | Role | Phone | + +------+ + PCP | Unavailable | + +------+ + Encounter Details +--------+ + + + + | Date | Type | Department | Care Team | Description | +--------+ + + + + | 07/09/ | Hospital [facility] | | | [facility] | Encounter | MED CTR XRAY [address] | | | | | | [address] | | | | | | [place] [address] | | | | | | [phone] | | | +--------+ + + + [...]
--- OUTSIDE RECORDS SUMMARY | ~2020-03-26 | XMS | Encounter Summary ---
Demographics + + + | Address | [address] | | | [place] [address] | + + + | Home Phone [...] | Author | [facility] | | | and [place] | + + + | Organization | [facility] [...] [place] | | | | | [address] | | + + + + + | Floyd Herndon | ECON | NA | | | | | NA, | | + + + + + Care Team Providers + +------+ + | Care Senior Stock Plan Administrator Name | Role | Phone | [...] | 02/02/ | Refill | [facility] [place] [facility] | Beltran Fields, | Medication Refill | | 2019 | | MEDICINE [facility] All | [address] | | | | | [place] [address] | [address] [place], | | | | | [place] [address] | [place] [address] | | | | | [phone] | [phone] | | | | | | | [...]
--- OUTSIDE RECORDS SUMMARY | ~2020-03-26 | XMS | Encounter Summary ---
Demographics + + + | Address | [address] | | | [place] [address] | + + + | Home Phone [...] | Author | [facility] | | | and [place] | + + + | Organization | [facility] | | | and [...] [place] | | | | | [address] | | + + + + + | Floyd Herndon | ECON | NA | | | | | NA, | | + + + + + Care Team Providers + +------+ + | Care Physical Security Specialist Name | Role | Phone | [...] [place], | | | | | [place] [address] | [place] [address] | | | | | [phone] | [phone] | | | | | | | [...]
--- OUTSIDE RECORDS SUMMARY | ~2020-03-26 | XMS | Encounter Summary ---
Demographics + + + | Address | [address] | | | [place] [address] | + + + | Home Phone [...] + | Author | [facility] | | | and [place] | + + + | Organization | [facility] | | | and [...] [place] | | | | | [address] | | + + + + + | Floyd Herndon | ECON | NA | | | | | NA, | | + + + + + Care Team Providers + +------+ + | Care Certified Forklift Operator Name | Role | Phone | [...] [facility] All | [address] | | | | | [facility] | [address] [place], | | | | | [place] [address] | [place] [address] | | | | | [phone] | [phone] | | | | | | | [...]
--- OUTSIDE RECORDS SUMMARY | ~2020-03-26 | XMS | Encounter Summary ---
Demographics + + + | Address | [address] | | | [place] [address] | + + + | Home Phone [...] Author | [facility] | | | and [place] | + + + | Organization | [facility] | | | and [...] [place] | | | | | [address] | | + + + + + | Floyd Herndon | ECON | NA | | | | | NA, | | + + + + + Care Team Providers + +------+ + | Care Mixed Livestock Farmer Name | Role | Phone | [...] Refill | | 2012 | | MEDICINE [place] | [address] | | | | | [address] | [place] [address] [place], | | | | | [place] | [place] [address] | | | | | [address] | [phone] | | | | | [phone] | | | +--------+--------+ + + + [...]
--- OUTSIDE RECORDS SUMMARY | ~2020-03-26 | XMS | Encounter Summary ---
Demographics + + + | Address | [address] | | | [place] [address] | + + + | Home Phone [...] | [facility] | | | and [place] | + + + | Organization | [facility] | | [...] [place] | | | | | [address] | | + + + + + | Floyd Herndon | ECON | NA | | | | | NA, | | + + + + + Care Team Providers + +------+ + | Care Cloth Piecer Name | Role | Phone | + [...] AVAdelso | | | | | [place] | [place], [place] | | | | | [address] | [address] | | | | | [phone] | | | +--------+ + + + [...]
--- OUTSIDE RECORDS SUMMARY | ~2020-03-26 | XMS | Encounter Summary ---
Demographics + + + | Address | [address] | | | [place] [address] | + + + | Home Phone [...] | [facility] | | | and [place] | + + + | Organization | [facility] | | [...] MICHEL[place], [place] | | | | | [address] | | + + + + + | Floyd Herndon | ECON | NA | | | | | NA, | | + + + + + Care Team Providers + +------+ + | Care Grommet Worker Name | Role | Phone | [...] | Closed | | | Diagnoses | [place], | OP ST | | | | | Art | Jordin Garcia MD | [place] | | | | | hematuria | [address] | | | | | Procedures | AVE [place] | [address] | | | | | CT Urogram w | [place], [place] | AVE | | | | | wo Contrast | [address] | [place] | | | | | [address] | Phone: | [address] | | | | | SCAN,ABDOMEN | [phone] | Phone: | | | | | T AND | Fax: | [phone] | | | | | PELVIS,COMBO | [phone] | Fax: | | | | | | | [phone] | +--------+--------+ + + + + Reason for Visit + + + | Reason | Comments | + + + | Hematuria | | + + + Encounter Details +--------+---------+ + + + | Date | Type | Department | Care Team | Description | +--------+---------+ + + + | 08/21/ | Office | [facility] | Jordin Padron, | Gross hematuria | | 2013 | Visit | [address] | MD [address] | (Primary Dx); PSA, | | | | COD[place] Griffiths | [place] | INCREASED; | | | | [address] | [address] | Hypertrophy of | | | | [phone] | | prostate with | | | [...] pelvis with cont rast on 09/01/2010 at [facility] demonstrated normal appearing kidneys , bladder wall thickening, but no renal masses. Dr. Thurman's PSA has also been abnormal. Prostate biopsies on 09/04/2009 and 04/28/2012 were negative. PSA on 03/27/2010 was 8.75. PSA on 10/20/2011 was 7.43. PSA on 03/30/2012 was 6.5 2. AUTO TUNE UP MECHANIC 3 on 04/04/2012 was normal at 6.2. [...] capsule 4 capsules by mouth at bedtime Acme-3 Fatty Acids (EQL FISH OIL) 1000 MG [...] t is made to edit the content, mixed crop farmer errors may occur. Nano Lyn CMA - 08/21/2014 8:52 AM PDTConsen t form signed & time out form completed Sent to [facility] for cytology via product control and logistics analyst. documented in this e ncounter Plan of [...] | 1.005 | | | | | [place], | | | | | | UA, [...]
--- OUTSIDE RECORDS SUMMARY | ~2020-03-26 | XMS | Encounter Summary ---
Demographics + + + | Address | [address] | | | [place] [address] | + + + | Home Phone [...] Author | [facility] | | | and [place] | + + + | Organization | [facility] [...] [place] | | | | | [address] | | + + + + + | Floyd Herndon | ECON | NA | | | | | NA, | | + + + + + Care Team Providers + +------+ + | Care Garment Mender Name | Role | Phone | + [...] [place] | | | | | | [address] | | | | | | [phone] | | | +--------+ + + + [...]
--- OUTSIDE RECORDS SUMMARY | ~2020-03-26 | XMS | Encounter Summary ---
Demographics + + + | Address | [address] | | | [place] [address] | + + + | Home Phone [...] | Author | [facility] | | | and [place] | + + + | Organization | [facility] | | | [...] [place] | | | | | [address] | | + + + + + | Floyd Herndon | ECON | NA | | | | | NA, | | + + + + + Care Team Providers + +------+ + | Care Laboratory Tester Name | Role | Phone | [...] | 06/09/ | Refill | [facility] [place] [facility] | Beltran Fields, | Medication Refill | | 2015 | | MEDICINE [facility] All | [address] [place] [address] | | | | | [facility] | [address]AY[address] [place]AE, | | | | | [place] [address] | [place] [address] | | | | | [phone] | [phone] | | | | | | | [...]
--- OUTSIDE RECORDS SUMMARY | ~2020-03-26 | XMS | Encounter Summary ---
Demographics + + + | Address | [address] | | | [place] [address] | + + + | Home Phone [...] | Author | [facility] | | | and [place] | + + + | Organization | [facility] | [...] A[place], [place] | | | | | [address] | | + + + + + | Floyd Herndon | ECON | NA | | | | | NA, | | + + + + + Care Team Providers + +------+ + | Care Waste Disposal Leakage Tester Name | Role | Phone | [...] | 100 | | | | | ([facility]) | [address] | [place] | | | | | | Phone: | [address] Phone: | | | | | | [phone] | [phone] | | | | | | Fax: | Fax: | | | | | | [phone] | [phone] | + + + + + + + Reason for Visit + + + | Reason | Comments | + + + | Follow-up | medication | + + + Encounter Details +--------+---------+ + + + | Date | Type | Department | Care Team | Description | +--------+---------+ + + + | 01/22/ | Office | [facility] | Beltran Fields, | Type 2 diabetes | | 2020 | Visit | [facility] | MD [address] | mellitus with | | | | MEDICINE [place] | [address] [place] [place], | hyperglycemia, | | | | [address] | [place] [address] | without long-term | | | | [address] [place] [place], | [phone] | current use of | | | | [place] [address] | | insulin (HCC) | | | | [phone] | | (Primary Dx); | | | [...] evening. 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 He is . 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 He lives in [place], [place]. 9 living Grandchildren. Patient's medications, allergies, [...]
--- OUTSIDE RECORDS SUMMARY | ~2020-03-26 | XMS | Encounter Summary ---
Demographics + + + | Address | [address] | | | [place] [address] | + + + | Home Phone [...] Author | [facility] | | | and [place] | + + + | Organization | [facility] | [...] [place] | | | | | [address] | | + + + + + | Floyd Herndon | ECON | NA | | | | | NA, | | + + + + + Care Team Providers + +------+ + | Care Racing Secretary And Handicapper Name | Role | Phone | + [...] | hyperplasia (Primary | | | | [place], [place] | [place], [place] | Dx); Family history | | | | [address] | [address] | of prostate cancer; | | | | [phone] | | History of elevated | | [...]
--- OUTSIDE RECORDS SUMMARY | ~2020-03-26 | XMS | Encounter Summary ---
Demographics + + + | Address | [address] | | | [place] [address] | + + + | Home Phone [...] + | Author | [facility] | | | and [place] | + + + | Organization | [facility] | [...] [place] | | | | | [address] | | + + + + + | Floyd Herndon | ECON | NA | | | | | NA, | | + + + + + Care Team Providers + +------+ + | Care Industrial Psychologist Name | Role | Phone | + [...] | 12/25/ | Refill | [facility] [place] [facility] | Beltran Fields, | Medication Refill | | 2019 | | MEDICINE [facility] All | [address] | | | | | [place] | [address] [place]AE, | | | | | [place] [address] | [place] [address] | | | | | [phone] | [phone] | | | | | | | [...]
--- OUTSIDE RECORDS SUMMARY | ~2020-03-26 | XMS | Encounter Summary ---
Demographics + + + | Address | [address] | | | [place] [address] | + + + | Home Phone [...] + | Author | [facility] | | | and [place] | + + + | Organization | [facility] | | [...] [place] | | | | | [address] | | + + + + + | Floyd Herndon | ECON | NA | | | | | NA, | | + + + + + Care Team Providers + +------+ + | Care City Designer Name | Role | Phone | + [...] | 07/13/ | Refill | [facility] | Beltran Fields, | Medication Refill | | 2015 | | MEDICINE [facility] | [address] [place] [address] | | | | | [facility] | [address] [place]AE, | | | | | [place] [address] | [place] [address] | | | | | [phone] | [phone] | | | | | | | [...]
--- OUTSIDE RECORDS SUMMARY | ~2020-03-26 | XMS | Encounter Summary ---
Demographics + + + | Address | [address] | | | [place] [address] | + + + | Home Phone [...] | [facility] | | | and [place] | + + + | Organization | [facility] | [...] [place] | | | | | [address] | | + + + + + | Floyd Herndon | ECON | NA | | | | | NA, | | + + + + + Care Team Providers + +------+ + | Care Lab Associate Name | Role | Phone | + +------+ + | Beltran Fields MD | PCP | | + +------+ + Reason for Visit +--------+ + | Reason | Comments | +--------+ + | LABS | | +--------+ + Encounter Details +--------+ + + + + | Date | Type | Department | Care Team | Description | +--------+ + + + + | 03/05/ | Telephone | [facility] | Beltran Fields, | LABS | | 2017 | | MEDICINE [address] | [address] | | | | | Street [place] | [address] [place], | | | | | [place] [address] | [place] [address] | | | | | [phone] | [phone] | | | | | | | [...]
--- OUTSIDE RECORDS SUMMARY | ~2020-03-26 | XMS | Encounter Summary ---
Demographics + + + | Address | [address] | | | [place] [address] | + + + | Home Phone [...] | [facility] | | | and [place] | + + + | Organization | [facility] | | | [...] [place] | | | | | [address] | | + + + + + | Floyd Herndon | ECON | NA | | | | | NA, | | + + + + + Care Team Providers + +------+ + | Care Caterer Helper Name | Role | Phone | [...] | 02/13/ | Refill | [facility] | Beltran Fields, | Medication Refill | | 2012 | | MEDICINE [facility] All | [address] [place] [address] | | | | | [facility] | [address]AY[address] SHAE, | | | | | [place] [address] | [place] [address] | | | | | [phone] | [phone] | | | | | | | [...]
--- OUTSIDE RECORDS SUMMARY | ~2020-03-26 | XMS | Encounter Summary ---
Demographics + + + | Address | [address] | | | [place] [address] | + + + | Home Phone [...] Author | [facility] | | | and [place] | + + + | Organization | [facility] Anand [...] MICHELLE, [place] | | | | | [address] | | + + + + + | Floyd Herndon | ECON | NA | | | | | NA, | | + + + + + Care Team Providers + +------+ + | Care Manager Oracle Retail Name | Role | Phone | + [...] + + | 12/10/ | Office | [facility] | Jordin Padron, | Weak urinary stream | | 2016 | Visit | [address] | MD [address] | (Primary Dx); Family | | | | COD[place] Griffiths | [place] | history of prostate | | | | [address] | [address] | cancer; Erectile | | | | [phone] | | dysfunction due to | | [...] 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 Brumfield in mid April 2015. About 1 week later, he experienced a recurrence of gross hematuria, and Dr. Maguire perform cystoscopy with clot evacuation and fulguration of a single bleeder on 05/05/2015 at [facility]. A younger brother was treated for prostate [...] capsule 4 capsules by mouth at bedtime [place]-3 Fatty Acids (EQL FISH OIL) 1000 MG [...] failed) versus va cuum erection device versus [place] versus penile self injection therapy versus a [...] t is made to edit the content, yarn wrapper errors may occur. documented in this encounter [...] 1.001 - 1.030 | | | | [place], | | | | | | UA, [...]
--- OUTSIDE RECORDS SUMMARY | ~2020-03-26 | XMS | Encounter Summary ---
Demographics + + + | Address | [address] | | | [place] [address] | + + + | Home Phone [...] | Author | [facility] | | | and [place] | + + + | Organization | [facility] [...] [place] | | | | | [address] | | + + + + + | Floyd Herndon | ECON | NA | | | | | NA, | | + + + + + Care Team Providers + +------+ + | Care User Experience Developer Name | Role | Phone | [...] | 01/07/ | Refill | [facility] [place] [facility] | Beltran Fields, | Medication Refill | | 2015 | | MEDICINE [facility] | [address] [address] | | | | | [facility] | [address]AYY [address] [place]AE, | | | | | [place] [address] | [place] [address] | | | | | [phone] | [phone] | | | | | | | [...]
--- OUTSIDE RECORDS SUMMARY | ~2020-03-26 | XMS | Encounter Summary ---
Demographics + + + | Address | [address] | | | [place] [address] | + + + | Home Phone [...] + | Author | [facility] | | | and [place] | + + + | Organization | [facility] | [...] MICHELLE, [place]A | | | | | [address] | | + + + + + | Floyd Herndon | ECON | NA | | | | | NA, | | + + + + + Care Team Providers + +------+ + | Care Cake Wringer Name | Role | Phone | + [...] | | | | [place], [place] | [address] Phone: | | | | | | [address] | [phone] | | | | | | Phone: | Fax: | | | | | | [phone] | [phone] | | | | | | Fax: | | | | | | | [phone] | | +--------+ + + + + + Reason for Visit + + + | Reason | Comments | + + + | Knee Pain | Left | + + + Encounter Details +--------+---------+ + + + | Date | Type | Department | Care Team | Description | +--------+---------+ + + + | 03/24/ | Office | [facility] [place] [facility] | Beltran Fields, | Hyperlipidemia | | 2012 | Visit | MEDICINE [place] | [address] | (Primary Dx); IGT | | | | [address] | [address] [place], | (impaired glucose | | | | [place], [place] | [place] [address] | tolerance); | | | | [address] | [phone] | Paroxysmal a-fib | | | | [phone] | | ([facility]); | | | | | | Osteoarthritis [...] child and 3 stepchildren. He lives in [place], [place]. 9 living Grandchildren. Review of Systems [...] + | [facility] | [address] | [place] | [phone] | | [facility] | | [address] | | | - LABORATORY | | | | + + + + + | [facility] | [address] | [place] | | | [facility] | | [address] [place] [address] | | | - LABORATORY | | [...]
--- OUTSIDE RECORDS SUMMARY | ~2020-03-26 | XMS | Encounter Summary ---
Demographics + + + | Address | [address] | | | [place] [address] | + + + | Home Phone [...] Author | [facility] | | | and [place] | + + + | Organization | [facility] | | | and [place] | [...] [place] | | | | | [address] | | + + + + + | Floyd Herndon | ECON | NA | | | | | NA, | | + + + + + Care Team Providers + +------+ + | Care Transmission Design Engineer Name | Role | Phone | [...] + + | 05/28/ | Office | [facility] | Beltran Fields, | Hypokalemia (Primary | | 2015 | Visit | MEDICINE [address] | [address] | Dx); Iron | | | | [facility] | [address]AYY [address] [place], | deficiency anemia; | | | | [place] [address] | [place] [address] | Status post | | | | [phone] | [phone] | prostatectomy; | | | | | [...] per Cardiology Dr Niranjan Luevano MD in [place]. He underwent a stressecho test this january [...] child and 3 stepchildren. He lives in [place], [place]. 9 living Grandchildren. Review of Systems [...] + | [facility] | [address] | [place] | [phone] | | [facility] | | [address] | | | - LABORATORY | | [...] mL/min/1.73m2 | [facility] | | | [place] | RATE,ESTIMATED | | MEDICAL | | | | mL/min/1.51z5Hwli than | | CENTER - | | [...] | 9.4 | 8.3 - 10.5 | [facility] | | | | | mg/dL [...] [address] | [place] | [phone] | | [facility] | | [address] | | | - LABORATORY | | [...] [address] | [place] | [phone] | | [facility] | | [address] | | | - LABORATORY | | [...]
--- OUTSIDE RECORDS SUMMARY | ~2020-03-26 | XMS | Encounter Summary ---
Demographics + + + | Address | [address] | | | [place] [address] | + + + | Home Phone [...] | Author | [facility] | | | and [place] | + + + | Organization | [facility] | | [...] [place] | | | | | [address] | | + + + + + | Floyd Herndon | ECON | NA | | | | | NA, | | + + + + + Care Team Providers + +------+ + | Care Emergency Physician Name | Role | Phone | [...] | (Primary Dx) | | | | [place], [place] | [place] | | | | | [address] | [address] | | | | | [phone] | | | +--------+ + + + [...]
--- OUTSIDE RECORDS SUMMARY | ~2020-03-26 | XMS | Encounter Summary ---
Demographics + + + | Address | [address] | | | [place] [address] | + + + | Home Phone | | + + + | Preferred Language | Unknown | + + + | Marital Status | | + + + | Zoroastrian Affiliation | Unknown | + + + [...] | Yuliet Ma | ECON | [address] | | | | | [place] | | | | | [address] | | + + + + + Care Team Providers + +------+ + | Care Pizza Maker Name | Role | Phone | [...] as of this encounter Progress Notes Interface, Shearing Machine Tender In - 12/24/2005 2:08 AM PST [id number] 12/22/2005 12/22/2005 [id number] KEVIN [facility] [address] [place] [address] or December 22, 2005 Shiva Hayward M.D. [address] [place] [address] RE: AWAIS BROWN MR #: [id number] Dear Dr. Hayward: Thank you for referring [...] Jonathon Mills M.D. Brandie Guerrero M.D. / [id number] / [id number] / [id number] / documented i n this encounter Plan of Treatment Not on filedocumented as of this encounter Visit Diagnoses Not on filedocumented in this encounter"
--- OUTSIDE RECORDS SUMMARY | ~2020-03-26 | XMS | Encounter Summary ---
Demographics + + + | Address | [address] | | | [place] [address] | + + + | Home Phone [...] + | Author | [facility] | | | and [place] | + + + | Organization | [facility] | | | and [...] [place] | | | | | [address] | | + + + + + | Floyd Herndon | ECON | NA | | | | | NA, | | + + + + + Care Team Providers + +------+ + | Care Orthopedic Physician Assistant Name | Role | Phone | [...] | 12/02/ | Refill | [facility] [place] [facility] | Beltran Fields, | Medication Refill | | 2016 | | MEDICINE [facility] All | [address] [place] [address] | | | | | [facility] | [address] [place]AE, | | | | | [place] [address] | [place] [address] | | | | | [phone] | [phone] | | | | | | | [...]
--- OUTSIDE RECORDS SUMMARY | ~2020-03-26 | XMS | Encounter Summary ---
Demographics + + + | Address | [address] | | | [place] [address] | + + + | Home Phone [...] | Author | [facility] | | | and [place] | + + + | Organization | [facility] | | | and [...] [place] | | | | | [address] | | + + + + + | Floyd Herndon | ECON | NA | | | | | NA, | | + + + + + Care Team Providers + +------+ + | Care Technical Internship Name | Role | Phone | [...] + + | 03/27/ | Telephone | [facility] | Sridhar John | Appointment | | 2012 | | ORTHOPEDIC SURGERY | MD Toro [address] [place] [address] | | | | | [address] [facility] | [place] | | | | | [place], [place] | [address] | | | | | [address] | | | | | | [phone] | | | +--------+ + + + [...]
--- OUTSIDE RECORDS SUMMARY | ~2020-03-26 | XMS | Encounter Summary ---
Demographics + + + | Address | [address] | | | [place] [address] | + + + | Home Phone [...] + | Author | [facility] | | | and [place] | + + + | Organization | [facility] | [...] [place] | | | | | [address] | | + + + + + | Floyd Herndon | ECON | NA | | | | | NA, | | + + + + + Care Team Providers + +------+ + | Care Deck Cadet Name | Role | Phone | + +------+ + | Beltran Fields MD | PCP | | + +------+ + Encounter Details +--------+ + + + + | Date | Type | Department | Care Team | Description | +--------+ + + + + | 07/26/ | Hospital | [facility] | Beltran Fields, | Elevated PSA; | | 2014 | Encounter | [facility] CTR LAB[facility] | MD [address] | Essential | | | | [address] [place] | [place], | hypertension, benign | | | | [place], [place] | [place] [address] | | | | | [address] | [phone] | | | | | [phone] | | | +--------+ + + + [...] + + + +---------+ + + | Hope-3 Fatty | two capsules by | | [...] + | [facility] | [address] | [place] | [phone] | | [facility] | | [address] | | | - LABORATORY | | | | + + + + + | [facility] | [address] | [place] | | | [facility] | | [address], [facility] | | | - LABORATORY [...] mL/min/1.73m2 | [facility] | | | [place] | RATE,ESTIMATED | | MEDICAL | | | | mL/min/1.90w1Dycs than | | CENTER - | | [...] + | [facility] | [address] | [place] | [phone] | | [facility] | | [address] | | | - LABORATORY | | | | + + + + + | [facility] | [address] | [place], [place] | | | [facility] | | [id number] | | | - LABORATORY [...] + | [facility] | [address] | [place], [place] | [phone] | | [facility] | | [address] | | | - LABORATORY | | | | + + + + + | [facility] | [address] | [place], [place] | | | [facility] | | [address] [place] [address] | | | - LABORATORY | | | | + + + + + documented in this encounter Visit Diagnoses + + | Diagnosis | + + | Elevated PSA Elevated prostate specific antigen (PSA) | + + | Essential hypertension, benign | + + documented in this encounter"
--- OUTSIDE RECORDS SUMMARY | ~2020-03-26 | XMS | Encounter Summary ---
Demographics + + + | Address | [address] | | | [place] [address] | + + + | Home Phone [...] | Author | [facility] | | | and [place] | + + + | Organization | [facility] | | | and [place] [...] [place] | | | | | [address] | | + + + + + | Floyd Herndon | ECON | NA | | | | | NA, | | + + + + + Care Team Providers + +------+ + | Care Service Station Equipment Mechanic Name | Role | Phone [...] | 08/26/ | Refill | [facility] [place] [facility] | Beltran Fields, | Medication Refill | | 2017 | | MEDICINE [facility] All | [address] | | | | | [place] | [address] [place], | | | | | [place] [address] | [place] [address] | | | | | [phone] | [phone] | | | | | | | [...]
--- OUTSIDE RECORDS SUMMARY | ~2020-03-26 | XMS | Encounter Summary ---
Demographics + + + | Address | [address] | | | [place] [address] | + + + | Home Phone [...] Author | [facility] | | | and [place] | + + + | Organization | [facility] | | [...] [place] | | | | | [address] | | + + + + + | Floyd Herndon | ECON | NA | | | | | NA, | | + + + + + Care Team Providers + +------+ + | Care Post Production Assistant Name | Role | Phone | [...] | | | 2019 | | [facility] [place] | [address] | | | | | [address] | [place] [address] [place], | | | | | [place] | [place] [address] | | | | | [address] | [phone] | | | | | [phone] | | | +--------+ + + + [...] + | REFERENCE LAB | [address] | [place] | [phone] | | [facility] | | [address] | | + + + + + [...] + | REFERENCE LAB | [address] | [place] | [phone] | | [facility] | | [address] | | + + + + + [...] [address] | [place] | [phone] | | [facility] | | [address] | | + + + + + [...] + + | REFERENCE LAB | [address] | [place], [place] | [phone] | | [facility] | | [address] | | + + + + + [...] [address] | [place] | [phone] | | [facility] | | [address] | | + + + + + [...] + | REFERENCE LAB | [address] | [place] | [phone] | | [facility] | | [address] | | + + + + + [...] - 1.03 | REFERENCE | | | [place], | | | LAB | | | [...] + | REFERENCE LAB | [address] | [place] | [phone] | | [facility] | | [address] | | + + + + + [...] [address] | [place] | [phone] | | [facility] | | [address] | | + + + + + [...] [address] | [place] | [phone] | | [facility] | | [address] | | + + + + + [...] + | REFERENCE LAB | [address] | [place] | [phone] | | [facility] | | [address] | | + + + + + [...] + | REFERENCE LAB | [address] | [place], [place] | [phone] | | [facility] | | [address] | | + + + + + [...] + + + | REFERENCE LAB | [address] | [place] | [phone] | | [facility] | | [address] | | + + + + + [...] + | REFERENCE LAB | [address] | [place] | [phone] | | [facility] | | [address] | | + + + + + [...] + + + | REFERENCE LAB | [address] | [place] | [phone] | | [facility] | | [address] | | + + + + + [...] [address] | [place] | [phone] | | [facility] | | [address] | | + + + + + [...] + | REFERENCE LAB | [address] | [place] | [phone] | | [facility] | | [address] | | + + + + + [...] + | REFERENCE LAB | [address] | [place] | [phone] | | [facility] | | [address] | | + + + + + [...] + | REFERENCE LAB | [address] | [place], [place] | [phone] | | [facility] | | [address] | | + + + + + [...] + | REFERENCE LAB | [address] | [place], [place] | [phone] | | [facility] | | [address] | | + + + + + [...] + + + | REFERENCE LAB | [address] | [place] | [phone] | | [facility] | | [address] | | + + + + + [...] + | REFERENCE LAB | [address] | [place], [place] | [phone] | | [facility] | | [address] | | + + + + + [...] [address] | [place] | [phone] | | [facility] | | [address] | | + + + + + [...] + | REFERENCE LAB | [address] | [place] | [phone] | | [facility] | | [address] | | + + + + + [...] + | REFERENCE LAB | [address] | [place] | [phone] | | [facility] | | [address] | | + + + + + [...] + + + | REFERENCE LAB | [address] | [place] | [phone] | | [facility] | | [address] | | + + + + + [...] [address] | [place] | [phone] | | [facility] | | [address] | | + + + + + documented in this encounter Visit Diagnoses Not on filedocumented in this encounter"
--- OUTSIDE RECORDS SUMMARY | ~2020-03-26 | XMS | Encounter Summary ---
Demographics + + + | Address | [address] | | | [place] [address] | + + + | Home Phone [...] [facility] | | | and [place] | + + + | Organization | [facility] | | | and [place] [...] [place] | | | | | [address] | | + + + + + | Floyd Herndon | ECON | NA | | | | | NA, | | + + + + + Care Team Providers + +------+ + | Care Specimen Boss Name | Role | Phone | + [...] | 12/03/ | Refill | [facility] [place] [facility] | Beltran Fields, | Medication Refill | | 2017 | | MEDICINE [facility] All | [address] | | | | | [place] | [address] [place], | | | | | [place] [address] | [place] [address] | | | | | [phone] | | | | | | | [...]
--- OUTSIDE RECORDS SUMMARY | ~2020-03-26 | XMS | Encounter Summary ---
Demographics + + + | Address | [address] | | | [place] [address] | + + + | Home Phone [...] + | Author | [facility] | | | and [place] | + + + | Organization | [facility] | | | and [...] [place] | | | | | [address] | | + + + + + | Floyd Herndon | ECON | NA | | | | | NA, | | + + + + + Care Team Providers + +------+ + | Care Death Claim Clerk Name | Role | Phone | [...] | | | 2019 | | [facility] | [address] | | | | | [address] | [place] [place], | | | | | [place] | [place] [address] | | | | | [address] | [phone] | | | | | [phone] | | | +--------+ + + + [...]
--- OUTSIDE RECORDS SUMMARY | ~2020-03-26 | XMS | Encounter Summary ---
Demographics + + + | Address | [address] | | | [place] [address] | + + + | Home Phone [...] | [facility] | | | and [place] | + + + | Organization | [facility] | | | and [place] [...] [place] | | | | | [address] | | + + + + + | Floyd Herndon | ECON | NA | | | | | NA, | | + + + + + Care Team Providers + +------+ + | Care Financial Operations Consultant Name | Role | Phone | [...] | | | [place] | [place] | | | | | [address] | [address] | | | | | [phone] | | | +--------+ + + + [...]
--- OUTSIDE RECORDS SUMMARY | ~2020-03-26 | XMS | Encounter Summary ---
Demographics + + + | Address | [address] | | | [place] [address] | + + + | Home Phone [...] Author | [facility] | | | and [place] | + + + | Organization | [facility] | | [...] [place] | | | | | [address] | | + + + + + | Floyd Herndon | ECON | NA | | | | | NA, | | + + + + + Care Team Providers + +------+ + | Care Concrete Bucket Loader Name | Role | Phone | + [...] | 12/24/ | Refill | [facility] [place] [facility] | Beltran Fields, | Medication Refill | | 2019 | | MEDICINE [facility] All | [address] | | | | | [place] | [address] [place], | | | | | [place] [address] | [place] [address] | | | | | [phone] | [phone] | | | | | | | [...]
--- OUTSIDE RECORDS SUMMARY | ~2020-03-26 | XMS | Encounter Summary ---
Demographics + + + | Address | [address] | | | [place] [address] | + + + | Home Phone [...] | Author | [facility] | | | and [place] | + + + | Organization | [facility] | [...] [place] | | | | | [address] | | + + + + + | Floyd Herndon | ECON | NA | | | | | NA, | | + + + + + Care Team Providers + +------+ + | Care Wood Milling Machine Hand Name | Role | Phone | [...] + | 06/17/ | Telephone | [facility] | Beltran Fields, | Lab Order | | 2014 | | MEDICINE [address] | [address] | | | | | Street [place] | [address] [place], | | | | | [place] [address] | [place] [address] | | | | | [phone] | [phone] | | | | | | | [...]
--- OUTSIDE RECORDS SUMMARY | ~2020-03-26 | XMS | Encounter Summary ---
Demographics + + + | Address | [address] | | | [place] [address] | + + + | Home Phone [...] Author | [facility] | | | and [place] | + + + | Organization | [facility] | [...] [place] | | | | | [address] | | + + + + + | Floyd Herndon | ECON | NA | | | | | NA, | | + + + + + Care Team Providers + +------+ + | Care Multiple Drum Sander Helper Name | Role | Phone | [...] + + | 04/04/ | Telephone | [facility] | Nirali Hobson, | Appointment | | 2013 | | CARDIOLOGY [address] | MD [address] | | | | | [place], | [place], | | | | | [place] [address] | [place] [address] | | | | | [phone] | [phone] | | | | | | | [...]
--- OUTSIDE RECORDS SUMMARY | ~2020-03-26 | XMS | Encounter Summary ---
Demographics + + + | Address | [address] | | | [place] [address] | + + + | Home Phone [...] | Author | [facility] | | | and [place] | + + + | Organization | [facility] | | | and [place] | [...] [place], [place] | | | | | [address] | | + + + + + | Floyd Herndon | ECON | NA | | | | | NA, | | + + + + + Care Team Providers + +------+ + | Care Lyric Writer Name | Role | Phone | + [...] | | neoplasms, | [place] | [address] | | | | | colon | [address] | Phone: | | | | | Procedures | Phone: | [phone] | | | | | 03/15 notes | [phone] | Fax: | | | | | | Fax: | [phone] | | | | | | [phone] | | +--------+ + + + + + Reason for Visit + + + | Reason | Comments | + + + | Medicare Wellness | | + + + Encounter Details +--------+---------+ + + + | Date | Type | Department | Care Team | Description | +--------+---------+ + + + | 02/08/ | Office | [facility] | Beltran Fields, | Essential | | 2018 | Visit | MEDICINE [address] | [address] | hypertension, benign | | | | Street [place] | [place] [address] [place], | (Primary Dx); | | | | [place] [address] | [place] [address] | Status post | | | | [phone] | [phone] | prostatectomy; Type | | | | [...] per Cardiology Dr Niranjan Luevano MD in [facility]. 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 He is . 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 He lives in [place], [place]. 9 living Grandchildren. Review of Systems [...]
--- OUTSIDE RECORDS SUMMARY | ~2020-03-26 | XMS | Encounter Summary ---
Demographics + + + | Address | [address] | | | [place] [address] | + + + | Home Phone [...] Author | [facility] | | | and [place] | + + + | Organization | [facility] [...] [place] | | | | | [address] | | + + + + + | Floyd Herndon | ECON | NA | | | | | NA, | | + + + + + Care Team Providers + +------+ + | Care Slot Machine Floor Person Name | Role | Phone | + [...] | 07/27/ | Telephone | [facility] [place] [facility] | Beltran Fields, | Results | | 2013 | | MEDICINE [address] | [address] | | | | | Street [place] | [place] [place], | | | | | [place] [address] | [place] [address] | | | | | [phone] | [phone] | | | | | | | [...]
--- OUTSIDE RECORDS SUMMARY | ~2020-03-26 | XMS | Encounter Summary ---
Demographics + + + | Address | [address] | | | [place] [address] | + + + | Home Phone [...] | Author | [facility] | | | and [place] | + + + | Organization | [facility] | | [...] [place] | | | | | [address] | | + + + + + | Floyd Herndon | ECON | NA | | | | | NA, | | + + + + + Care Team Providers + +------+ + | Care Egg Gatherer Name | Role | Phone | + [...] Refill | | 2013 | | MEDICINE [facility] All | [address] | | | | | [facility] | [address] [place], | | | | | [place] [address] | [place] [address] | | | | | [phone] | [phone] | | | | | | | [...]
--- OUTSIDE RECORDS SUMMARY | ~2020-03-26 | XMS | Encounter Summary ---
Demographics + + + | Address | [address] | | | [place] [address] | + + + | Home Phone [...] | Author | [facility] | | | and [place] | + + + | Organization | [facility] | [...] [place] | | | | | [address] | | + + + + + | Floyd Herndon | ECON | NA | | | | | NA, | | + + + + + Care Team Providers + +------+ + | Care Assembler Musical Equipment Name | Role | Phone | + [...] (PSA) (Primary Dx); | | | | [address] | [address] | Family history of | | | | [phone] | | prostate cancer | +--------+ + [...]
--- OUTSIDE RECORDS SUMMARY | ~2020-03-26 | XMS | Encounter Summary ---
Demographics + + + | Address | [address] | | | [place] [address] | + + + | Home Phone [...] | Author | [facility] | | | and [place] | + + + | Organization | [facility] | | | [...] [place] | | | | | [address] | | + + + + + | Floyd Herndon | ECON | NA | | | | | NA, | | + + + + + Care Team Providers + +------+ + | Care Liner Assembler Name | Role | Phone | [...] Refill | | 2013 | | MEDICINE [place] | [address] | | | | | [address] | [address] [place], | | | | | [place] | [place] [address] | | | | | [address] | [phone] | | | | | [phone] | | | +--------+--------+ + + + [...]
--- OUTSIDE RECORDS SUMMARY | ~2020-03-26 | XMS | Encounter Summary ---
Demographics + + + | Address | [address] | | | [place] [address] | + + + | Home Phone [...] | Author | [facility] | | | and [place] | + + + | Organization | [facility] | [...] [place] | | | | | [address] | | + + + + + | Floyd Herndon | ECON | NA | | | | | NA, | | + + + + + Care Team Providers + +------+ + | Care Skin Toggler Name | Role | Phone | + [...] + | 03/05/ | Telephone | [facility] | Beltran Fields, | LABS | | 2017 | | MEDICINE [address] | [address] | | | | | Street [place] | [address] [place], | | | | | [place] [address] | [place] [address] | | | | | [phone] | [phone] | | | | | | | [...]
--- OUTSIDE RECORDS SUMMARY | ~2020-03-26 | XMS | Encounter Summary ---
Demographics + + + | Address | [address] | | | [place] [address] | + + + | Home Phone [...] + | Author | [facility] | | | and [place] | + + + | Organization | [facility] | | [...] [place] | | | | | [address] | | + + + + + | Floyd Herndon | ECON | NA | | | | | NA, | | + + + + + Care Team Providers + +------+ + | Care Director Of Instructional Technology Name | Role | Phone | + [...] | 07/13/ | Refill | [facility] [place] [facility] | Beltran Fields, | Medication Refill | | 2015 | | MEDICINE [facility] All | [address] [place] [address] | | | | | [facility] | [address] [place], | | | | | [place] [address] | [place] [address] | | | | | [phone] | [phone] | | | | | | | [...]
--- OUTSIDE RECORDS SUMMARY | ~2020-03-26 | XMS | Encounter Summary ---
Demographics + + + | Address | [address] | | | [place] [address] | + + + | Home Phone [...] Author | [facility] | | | and [place] | + + + | Organization | [facility] | | | and [...] [place], [place] | | | | | [address] | | + + + + + | Floyd Herndon | ECON | NA | | | | | NA, | | + + + + + Care Team Providers + +------+ + | Care Trophy Assembler Name | Role | Phone | [...] | | | [place], [place] | [place] [address] | | | | | | [address] | Phone: | | | | | | Phone: | [phone] | | | | | | [phone] | Fax: | | | | | | Fax: | [phone] | | | | | | [phone] | | +--------+ + + + + + Reason for Visit + + + | Reason | Comments | + + + | Coordination Of Care | | + + + Encounter Details +--------+ + + + + | Date | Type | Department | Care Team | Description | +--------+ + + + + | 02/22/ | Telephone | [facility] | Beltran Fields, | Coordination Of Care | | 2019 | | MEDICINE [place] | [address] | | | | | [address] | [address] [place], | | | | | [place] | [place] [address] | | | | | [address] | [phone] | | | | | [phone] | | | +--------+ + + + [...]
--- OUTSIDE RECORDS SUMMARY | ~2020-03-26 | XMS | Encounter Summary ---
Demographics + + + | Address | [address] | | | [place] [address] | + + + | Home Phone [...] Author | [facility] | | | and [place] | + + + | Organization | [facility] | [...] [address] | | | | | [place] | | | | | [address] | | + + + + + | Floyd Herndon | ECON | NA | | | | | NA, | | + + + + + Care Team Providers + +------+ + | Care Fisheries Diver Name | Role | Phone | + [...] | 02/08/ | Refill | [facility] [place] [facility] | Beltran Fields, | Medication Refill | | 2017 | | MEDICINE [facility] All | [address] | | | | | [place] | [address] [place], | | | | | [place] [address] | [place] [address] | | | | | [phone] | [phone] | | | | | | | [...]
--- OUTSIDE RECORDS SUMMARY | ~2020-03-26 | XMS | Encounter Summary ---
Demographics + + + | Address | [address] | | | [place] [address] | + + + | Home Phone [...] + | Author | [facility] | | | and [place] | + + + | Organization | [facility] | | | and [place] [...] [place] | | | | | [address] | | + + + + + | Floyd Herndon | ECON | NA | | | | | NA, | | + + + + + Care Team Providers + +------+ + | Care Harp Action Assembler Name | Role | Phone | [...] + + | 04/04/ | Telephone | [facility] | Nirali Hobson, | Appointment | | 2013 | | CARDIOLOGY [address] | MD [address] [place] | | | | | [place], | [place], | | | | | [place] [address] | [place] [address] | | | | | [phone] | [phone] | | | | | | | [...]
--- NOTE | 2020-03-26 13:19 | EKG ---
[facility] [address] [place], [place] [address] Signed Undetermined rhythm Possibly Normal sinus rhythm with frequent supraventricular complexes Right superior axis deviation Incomplete right bundle branch block Right ventricular hypertrophy Prolonged QT Abnormal ECG No previous ECGs available Confirmed by WALE CORDOVA MD ([id number]) on 03/26/2020 1:19:23 PM Electronically Signed By: WALE CORDOVA MD 03/26/20 1319 PATIENT NAME: AWAIS BROWN Electrocardiogram DATE OF : 47 PHYSICIAN: WALE CORDOVA MD REPORT #: [id number] REPORT IS CONFIDENTIAL AND NOT TO BE RELEASED WITHOUT AUTHORIZATION
== END ==
LOC: ED 07:59
DX: I48.0 Paroxysmal atrial fibrillation (principal); E83.42 Hypomagnesemia; K21.9 Gastro-esophageal reflux disease without esophagitis; E78.00 Pure hypercholesterolemia, unspecified; I10 Essential (primary) hypertension; M10.9 Gout, unspecified; Z88.8 Allergy status to other drugs, medicaments and biological substances; Z79.899 Other long term (current) drug therapy
CPT/HCPCS: 80053; 83735; 84484; 85025; 93005; 93010; 96374; 99285-25; J3475; J7040

== ENCOUNTER 2020-08-30 21:08 | Emergency (ER) | payer MEDICARE, OTHER ==
[~2020-08-30] VITALS: Ht 177.8 cm; Wt 105.2 kg
--- OUTSIDE RECORDS SUMMARY | ~2020-08-30 | XMS | Encounter Summary ---
Demographics + + + | Address | [address] | | | [place] [address] | + + + | Home Phone | | + + + | Preferred Language | Unknown | + + + | Marital Status | | + + + | Yazidi Affiliation | 1009 | + + + | Race | White | + + + | Ethnic Group | Not or | + + + Author + + + | Author | [facility] | | | and [place] | + + + | Organization | [facility] | | | and [place] | + + + | Address | Unknown | + + + | Phone | Unavailable | + + + Support + + + + + | Name | Relationship | Address | Phone | + + + + + | Yuliet Crow | ECON | [address] | | | | | [place] | | | | | [address] | | + + + + + | Floyd Herndon | ECON | NA | | | | | NA, | | + + + + + Care Team Providers + +------+ + | Care Hybrid Derivatives Trader Name | Role | Phone | + +------+ + | Beltran Fields MD | PCP | | + +------+ + Reason for Visit + + + | Reason | Comments | + + + | Medication Refill | | + + + Encounter Details +--------+--------+ + + + | Date | Type | Department | Care Team | Description | +--------+--------+ + + + | 02/12/ | Refill | [facility] | Beltran Fields, | Medication Refill | | 2013 | | [facility] | MD [address] | | | | | [address] | [place] [address] [place], | | | | | [place] | [place] [address] | | | | | [address] | [phone] | | | | | [phone] | | | +--------+--------+ + + + Social History + +-------+ [...] on file | | + + + documented as of this encounter Plan of Treatment +--------+---------+ + + + | Date | Type | Specialty | Care Team | Description | +--------+---------+ + + + | 11/05/ | Office | Cardiology | Cristiano Stout, | | | 2019 | Visit | | MD [address] | | | | | | [place], | | | | | | [place] [address] | | | | | | [phone] | | | | | | | | +--------+---------+ + + + documented as of this encounter Visit Diagnoses Not on filedocumented in this encounter"
--- OUTSIDE RECORDS SUMMARY | ~2020-08-30 | XMS | Encounter Summary ---
Demographics + + + | Address | [address] | | | [place] [address] | + + + | Home Phone | | + + + | Preferred Language | Unknown | + + + | Marital Status | | + + + | Samaritan Affiliation | 1009 | + + + | Race | White | + + + | Ethnic Group | Not or | + + + Author + + + | Author | [facility] | | | and [place] | + + + | Organization | [facility] | | | and [...] [place] | | | | | [address] | | + + + + + | Floyd Herndon | ECON | NA | | | | | NA, | | + + + + + Care Team Providers + +------+ + | Care Railway Traction Line Worker Name | Role | Phone | + +------+ + | Beltran Fields MD | PCP | | + +------+ + Reason for Referral Evaluate & Treat (Routine) +--------+ + + + + + | Status | Reason | Specialty | Diagnoses / | Referred By | Referred To | | | | | Procedures | Contact | Contact | +--------+ + + + + + | Closed | Specialty | Otolaryngolog | Diagnoses | Diamond, | Samm Maier | | | Services | y | Dry mouth | Beltran Nunn MD | MD [address] | | | Required | | | [address] | | | | | | [address] [place] [address] | [place] [address] [place] | | | | | | [place] | [place] | | | | | | [place] | [address] Phone: | | | | | | [address] | [phone] | | | | | | Phone: | Fax: | | | | | | [phone] | [phone] | | | | | | Fax: | | | | | | | [phone] | | +--------+ + + + + + Reason for Visit + +--------+ + | Reason | Onset | Comments | | | Date | | + +--------+ + | Coordination Of Care | 02/22/ | | | | 2018 | | + +--------+ + Encounter Details +--------+ + + + + | Date | Type | Department | Care Team | Description | +--------+ + + + + | 02/22/ | Telephone | [facility] | Beltran Fields, | Coordination Of Care | | 2019 | | MEDICINE [place] | [address] | | | | | [address] | [place] [address] [place], | | | | | [place] | [place] [address] | | | | | [address] | [phone] | | | | | [phone] | | | +--------+ + + + [...] + + documented as of this encounter Miscellaneous Notes Telephone Encounter - Theresa Tesfaye RN - 02/22/2019 3:10 PM PDTCalled and asked DR. Maier what he would suggest for a patient that has excessive dry mouth with CPAP use. Dr Maier suggests patient is most likely mouth breathing. He would have to see patient as h e may need to shrink his turbinates to improve nose breathing. Pt requests lab orders be faxed to [facility]. These were faxed today to [phone]. Referral placed for you to sign if you agree documented in this encounter Plan of Treatment +--------+---------+ + + + | Date | Type | Specialty | Care Team | Description | +--------+---------+ + + + | 11/05/ | Office | Cardiology | Cristiano Stout, | | | 2019 | Visit | | MD [address] | | | | | | [place], | | | | | | [place] [address] | | | | | | [phone] | | | | | | | | +--------+---------+ + + + + + +--------+ + + | Name | Type | Priori | Associated Diagnoses | Order Schedule | | | | ty | | | + + +--------+ + + | * [facility] | Outpatient | Routin | Dry mouth | Ordered: 02/24/2019 | | Otolaryngology - AMB | Referral | e | | | | Referral | | | | | + + +--------+ + + documented as of this encounter Visit Diagnoses + + | Diagnosis | + + | Dry mouth - Primary Disturbance of salivary secretion | + + documented in this encounter"
--- OUTSIDE RECORDS SUMMARY | ~2020-08-30 | XMS | Encounter Summary ---
Demographics + + + | Address | [address] | | | [place] [address] | + + + | Home Phone | | + + + | Preferred Language | Unknown | + + + | Marital Status | | + + + | Amish Affiliation | 1009 | + + + | Race | White | + + + | Ethnic Group | Not or | + + + Author + + + | Author | [facility] | | | and [place] | + + + | Organization | [facility] | | | and [...] [place] | | | | | [address] | | + + + + + | Floyd Herndon | ECON | NA | | | | | NA, | | + + + + + Care Team Providers + +------+ + | Care High Reach Operator Name | Role | Phone | + +------+ + | Beltran Fields MD | PCP | | + +------+ + Reason for Visit + +--------+ + | Reason | Onset | Comments | | | Date | | + +--------+ + | Medication Refill | 07/24/ | | | | 2013 | | + +--------+ + | Other | | | + +--------+ + Encounter Details +--------+ + + + + | Date | Type | Department | Care Team | Description | +--------+ + + + + | 07/24/ | Telephone | [facility] | Beltran Fields, | Medication Refill; | | 2013 | | MEDICINE [facility] [facility] [address] | [address] | | | | | [address] [place], | [place] [address] [place], | | | | | [place] [address] | [place] [address] | | | | | [phone] | [phone] | | | | | | | [...] this encounter Miscellaneous Notes Telephone Encounter - Petra Small - 09/12/2014 4:28 PM PDTPatient was seen on 07-26-14 elephone Encounter - Floyd Mccarthy - 07/31/2014 10:01 AM PDTLeft voice mail message for patient to schedu le appointment. e lephone Encounter - Petra Small - 07/24/2014 3:44 PM PDTPhone call to patient to set u p appointment. Left message on home voice mailElectronically signed by Petra Small at 3:45 PM PDTTelephone Encounter - Yuliet Stephens RN - 07/24/2014 2:20 PM PDTCal l patient to schedule appointment documented in this encounter Plan of Treatment +--------+---------+ + + + | Date | Type | Specialty | Care Team | Description | +--------+---------+ + + + | 11/05/ | Office | Cardiology | Cristiano Stout, | | | 2019 | Visit | | MD [address] | | | | | | [place], | | | | | | [place] [address] | | | | | | [phone] | | | | | | | | +--------+---------+ + + + documented as of this encounter Visit Diagnoses Not on filedocumented in this encounter"
--- OUTSIDE RECORDS SUMMARY | ~2020-08-30 | XMS | Encounter Summary ---
Demographics + + + | Address | [address] | | | [place] [address] | + + + | Home Phone | | + + + | Preferred Language | Unknown | + + + | Marital Status | | + + + | Rastafari Affiliation | 1009 | + + + | Race | White | + + + | Ethnic Group | Not or | + + + Author + + + | Author | [facility] | | | and [place] | + + + | Organization | [facility] | | | [...] [place] | | | | | [address] | | + + + + + | Floyd Herndon | ECON | NA | | | | | NA, | | + + + + + Care Team Providers + +------+ + | Care Community Educator Name | Role | Phone | + +------+ + | Beltran Fields MD | PCP | | + +------+ + Encounter Details +--------+ + + + + | Date | Type | Department | Care Team | Description | +--------+ + + + + | 07/27/ | Abstract | [facility] | [facility] | | | 2011 | | Conversion Location | SR | | | | | [address] | | | | | | [place], [place] | | | | | | [address] | | | | | | [phone] | | | +--------+ + + + + Social History + +-------+ +--------+------+ | Tobacco Use | Types | Packs/Day | Years | Date | | | | | Used | | + +-------+ +--------+------+ | Never Assessed | | | | | + +-------+ +--------+------+ + + + | Sex Assigned at | Date Recorded | | | | + + + | Not on file | | + + + documented as of this encounter Last Filed Vital Signs + + + + + | Vital Sign | Reading | Time Taken | Comments | + + + + + | Blood Pressure | 120/70 | 04/28/2012 12:00 AM | | | | | PDT | | + + + + + | Pulse | - | - | | + + + + + | Temperature | - | - | | + + + + + | Respiratory Rate | - | - | | + + + + + | Oxygen Saturation | - | - | | + + + + + | Inhaled Oxygen | - | - | | | Concentration | | | | + + + + + | Weight | 122.9 kg (271 lb) | 04/28/2012 12:00 AM | | | | | PDT | | + + + + + | Height | 177.8 cm (5' 10") | 04/28/2010 12:00 AM | | | | | PDT | | + + + + + | Body Mass Index | 38.88 | 04/28/2010 12:00 AM | | | | | PDT | | + + + + + documented in this encounter Plan of Treatment +--------+---------+ + + + | Date | Type | Specialty | Care Team | Description | +--------+---------+ + + + | 11/05/ | Office | Cardiology | Cristiano Sotut, | | | 2019 | Visit | | MD [address] | | | | | | [place], | | | | | | [place] [address] | | | | | | [phone] | | | | | | | | +--------+---------+ + + + documented as of this encounter Visit Diagnoses Not on filedocumented in this encounter
--- OUTSIDE RECORDS SUMMARY | ~2020-08-30 | XMS | Encounter Summary ---
Demographics + + + | Address | [address] | | | [place] [address] | + + + | Home Phone | | + + + | Preferred Language | Unknown | + + + | Marital Status | | + + + | Pentecostal Affiliation | 1009 | + + + | Race | White | + + + | Ethnic Group | Not or | + + + Author + + + | Author | [facility] | | | and [place] | + + + | Organization | [facility] | | | [...] [place] | | | | | [address] | | + + + + + | Floyd Herndon | ECON | NA | | | | | NA, | | + + + + + Care Team Providers + +------+ + | Care Tier And Detonator Name | Role | Phone | + +------+ + | Beltran Fields MD | PCP | | + +------+ + Reason for Visit + +--------+ + | Reason | Onset | Comments | | | Date | | + +--------+ + | Medication Refill | 08/21/ | | | | 2012 | | + +--------+ + Encounter Details +--------+--------+ + + + | Date | Type | Department | Care Team | Description | +--------+--------+ + + + | 08/21/ | Refill | [facility] [place] [facility] | Beltran Fields, | Medication Refill | | 2012 | | MEDICINE [address] | [address] | | | | | [address] [place], | [address] [address] [place], | | | | | [place] [address] | [place] [address] | | | | | [phone] | [phone] | | | | | | | | +--------+--------+ + + + Social History + +-------+ +--------+------+ | Tobacco Use | Types | Packs/Day | Years | Date | | | | | Used | | + +-------+ +--------+------+ | Former Smoker | | | | | + +-------+ +--------+------+ + + +---------+ + | Alcohol Use [...] this encounter Miscellaneous Notes Telephone Encounter - Mely Peguero RN - 08/22/2013 1:30 PM PDTHydrocodone 5/500 mg # 30 + 0 RF called in to [facility] refill line. elephone Encounter - Mely Peguero RN - 08/21/2013 3 :56 PM PDTReceived refill request for Hydrocodone 5/500 mg from [facility] Last filled: 03/24/13 #50 + 0 RF Last visit: 03/24/13 Next visit:0000 documented in this encounter Plan of Treatment +--------+---------+ + + + | Date | Type | Specialty | Care Team | Description | +--------+---------+ + + + | 11/05/ | Office | Cardiology | Cristiano Stout, | | | 2019 | Visit | | MD [address] | | | | | | [place], | | | | | | [place] [address] | | | | | | [phone] | | | | | | | | +--------+---------+ + + + documented as of this encounter Visit Diagnoses Not on filedocumented in this encounter"
--- OUTSIDE RECORDS SUMMARY | ~2020-08-30 | XMS | Encounter Summary ---
Demographics + + + | Address | [address] | | | [place] [address] | + + + | Home Phone | | + + + | Preferred Language | Unknown | + + + | Marital Status | | + + + | Nondenominational Affiliation | 1009 | + + + | Race | White | + + + | Ethnic Group | Not or | + + + Author + + + | Author | [facility] | | | and [place] | + + + | Organization | [facility] | | | [...] [place] | | | | | [address] | | + + + + + | Floyd Hrendon | ECON | NA | | | | | NA, | | + + + + + Care Team Providers + +------+ + | Care Sole Buffer Name | Role | Phone | + [...] Description | +--------+--------+ + + + | 11/21/ | Refill | [facility] [place] [facility] | Beltran Fields, | Medication Refill | | 2013 | | MEDICINE [place] | [address] | | | | | [address] | [address] [address] [place], | | | | | [place] | [place] [address] | | | | | [address] | [phone] | | | | | [phone] | | | +--------+--------+ + + + [...] [place], | | | | | | [place] [address] | | | | | | [phone] | | | | | | | | +--------+---------+ + + + documented as of this encounter Visit Diagnoses Not on filedocumented in this encounter"
--- OUTSIDE RECORDS SUMMARY | ~2020-08-30 | XMS | Encounter Summary ---
Demographics + + + | Address | [address] | | | [place] [address] | + + + | Home Phone | | + + + | Preferred Language | Unknown | + + + | Marital Status | | + + + | Confucianist Affiliation | 1009 | + + + | Race | White | + + + | Ethnic Group | Not or | + + + Author + + + | Author | [facility] | | | and [place] | + + + | Organization | [facility] | | [...] [place] | | | | | [address] | | + + + + + | Floyd Herndon | ECON | NA | | | | | NA, | | + + + + + Care Team Providers + +------+ + | Care Certified Respiratory Therapist Name | Role | Phone | + [...] Description | +--------+--------+ + + + | 08/03/ | Refill | [facility] [place] [facility] | Beltran Fields, | Medication Refill | | 2019 | | MEDICINE [address] | MD [address] | | | | | [address]VE [place], | [place] [address] [place], | | | | | [place] [address] | [place] [address] | | | | | [phone] | [phone] | | | | | | | [...] | | | | | | [place] [address] | | | | | | [phone] | | | | | | | | +--------+---------+ + + + documented as of this encounter Visit Diagnoses Not on filedocumented in this encounter"
--- OUTSIDE RECORDS SUMMARY | ~2020-08-30 | XMS | Encounter Summary ---
Demographics + + + | Address | [address] | | | [place] [address] | + + + | Home Phone | | + + + | Preferred Language | Unknown | + + + | Marital Status | | + + + | Anglican Affiliation | 1009 | + + + | Race | White | + + + | Ethnic Group | Not or | + + + Author + + + | Author | [facility] | | | and [place] | + + + | Organization | [facility] | | | and [...] [place] | | | | | [address] | | + + + + + | Floyd Herndon | ECON | NA | | | | | NA, | | + + + + + Care Team Providers + +------+ + | Care Senior Software Qa Analyst Name | Role | Phone | + +------+ + | Beltran Fields MD | PCP | | + +------+ + Reason for Visit + +--------+ + | Reason | Onset | Comments | | | Date | | + +--------+ + | Leg Swelling | 07/27/ | | | | 2015 | | + +--------+ + Encounter Details +--------+ + + + + | Date | Type | Department | Care Team | Description | +--------+ + + + + | 07/27/ | Telephone | [facility] | Beltran Fields, | Leg Swelling | | 2015 | | MEDICINE [address] | [address] | | | | | [address]VE [place], | [address] [address] [place], | | | | | [place] [address] | [place] [address] | | | | | [phone] | [phone] | | | | | | | [...] this encounter Miscellaneous Notes Telephone Encounter - Eloise Spicer RN - 07/27/2016 2:42 PM PDTPatient called wanting an appointment to evaluate his calf which is enlarged. He states he has one which is alway s larger than the other but it has been larger than normal for the last week. Denies rednes s, or recent injury. Offered him an appointment 07/29 at 1130, but he states he can only com e in the afternoons on Wed or . Advised he could be seen in Urgent Care. He states "ne lisandra mind" and hangs up. documented in this encounter Plan of Treatment +--------+---------+ + + + | Date | Type | Specialty | Care Team | Description | +--------+---------+ + + + | 11/05/ | Office | Cardiology | Cristiano Stout, | | | 2019 | Visit | | MD [address] | | | | | | [place], | | | | | | [place] [address] | | | | | | [phone] | | | | | | | | +--------+---------+ + + + documented as of this encounter Visit Diagnoses Not on filedocumented in this encounter
--- OUTSIDE RECORDS SUMMARY | ~2020-08-30 | XMS | Encounter Summary ---
Demographics + + + | Address | [address] | | | [place] [address] | + + + | Home Phone | | + + + | Preferred Language | Unknown | + + + | Marital Status | | + + + | Church Affiliation | 1009 | + + + | Race | White | + + + | Ethnic Group | Not or | + + + Author + + + | Author | [facility] | | | and [place] | + + + | Organization | [facility] | | | [...] [place] | | | | | [address] | | + + + + + | Floyd Herndon | ECON | NA | | | | | NA, | | + + + + + Care Team Providers + +------+ + | Care Audio Narrator Name | Role | Phone | + +------+ + | Beltran Fields MD | PCP | | + +------+ + Reason for Visit + +--------+ + | Reason | Onset | Comments | | | Date | | + +--------+ + | Medication Refill | 02/23/ | | | | 2018 | | + +--------+ + Encounter Details +--------+--------+ + + + | Date | Type | Department | Care Team | Description | +--------+--------+ + + + | 02/23/ | Refill | [facility] | Beltran Fields, | Medication Refill | | 2018 | | MEDICINE [place] | [address] | | | | | [address] | [address] [address] [place], | | | | | [place] | [place] [address] | | | | | [address] | [phone] | | | | | [phone] | | | +--------+--------+ + + + [...] this encounter Miscellaneous Notes Telephone Encounter - Julia Kearns RN - 02/23/2019 2:00 PM PDTNo refill protocol, i s it ok to refill this medication? documented in this encounter Plan of Treatment +--------+---------+ + + + | Date | Type | Specialty | Care Team | Description | +--------+---------+ + + + | 11/05/ | Office | Cardiology | Cristiano Stout, | | | 2019 | Visit | | MD [address] | | | | | | [place], | | | | | | [place] [address] | | | | | | [phone] | | | | | | | | +--------+---------+ + + + documented as of this encounter Visit Diagnoses + + | Diagnosis | + + | History of gout - Primary Personal history of other endocrine, metabolic, and | | immunity disorders | + + | Essential hypertension, benign | + + | ATRIAL FIBRILLATION WITH RAPID VENTRICULAR RESPONSE Atrial fibrillation | + + | Mixed hyperlipidemia | + + documented in this encounter"
--- OUTSIDE RECORDS SUMMARY | ~2020-08-30 | XMS | Encounter Summary ---
Demographics + + + | Address | [address] | | | [place] [address] | + + + | Home Phone | | + + + | Preferred Language | Unknown | + + + | Marital Status | | + + + | Jainism Affiliation | 1009 | + + + | Race | White | + + + | Ethnic Group | Not or | + + + Author + + + | Author | [facility] | | | and [place] | + + + | Organization | [facility] | | | [...] [place] | | | | | [address] | | + + + + + | Floyd Herndon | ECON | NA | | | | | NA, | | + + + + + Care Team Providers + +------+ + | Care Waiter Name | Role | Phone | + +------+ + | Beltran Fields MD | PCP | | + +------+ + Reason for Visit + +--------+ + | Reason | Onset | Comments | | | Date | | + +--------+ + | Medication Refill | 02/14/ | | | | 2014 | | + +--------+ + Encounter Details +--------+--------+ + + + | Date | Type | Department | Care Team | Description | +--------+--------+ + + + | 02/14/ | Refill | [facility] | Beltran Fields, | Medication Refill | | 2014 | | MEDICINE [address] | [address] | | | | | [address] [place], | [address] [place], | | | | | [place] [address] | [place] [address] | | | | | [phone] | | | | | | | [...] | | | | | | [place] [address] | | | | | | [phone] | | | | | | | | +--------+---------+ + + + documented as of this encounter Visit Diagnoses Not on filedocumented in this encounter"
--- OUTSIDE RECORDS SUMMARY | ~2020-08-30 | XMS | Encounter Summary ---
Demographics + + + | Address | [address] | | | [place] [address] | + + + | Home Phone [...] [place] | | | | | [address] | | + + + + + | Floyd Herndon | ECON | NA | | | | | NA, | | + + + + + Care Team Providers + +------+ + | Care Auditing Control Clerk Name | Role | Phone | + +------+ + | Beltran Fields MD | PCP | | + +------+ + Reason for Visit + +--------+ + | Reason | Onset | Comments | | | Date | | + +--------+ + | Medication Refill | 01/28/ | | | | 2015 | | + +--------+ + Encounter Details +--------+--------+ + + + | Date | Type | Department | Care Team | Description | +--------+--------+ + + + | 01/28/ | Refill | [facility] [place] [facility] | Beltran Fields, | Medication Refill | | 2015 | | MEDICINE [address] | [address] | | | | | [address]VE [place], | [address] [place], | | | | | [place] [address] | [place] [address] | | | | | [phone] | [phone] | | | | | | | [...] this encounter Miscellaneous Notes Telephone Encounter - Constance Morgan RN - 01/29/2016 2:03 PM [facility] to cancel electronic RX's per . printed out RX's for patient. documented in this encounter Plan of Treatment +--------+---------+ + + + | Date | Type | Specialty | Care Team | Description | +--------+---------+ + + + | 11/05/ | Office | Cardiology | Cristiano Stout, | | | 2019 | Visit | | MD [address] | | | | | | [place], | | | | | | [place] [address] | | | | | | [phone] | | | | | | | | +--------+---------+ + + + documented as of this encounter Visit Diagnoses Not on filedocumented in this encounter"
--- OUTSIDE RECORDS SUMMARY | ~2020-08-30 | XMS | Encounter Summary ---
Demographics + + + | Address | [address] | | | [place] [address] | + + + | Home Phone | | + + + | Preferred Language | Unknown | + + + | Marital Status | | + + + | Gnosticist Affiliation | 1009 | + + + | Race | White | + + + | Ethnic Group | Not or | + + + Author + + + | Author | [facility] | | | and [place] | + + + | Organization | [facility] | | | [...] [place] | | | | | [address] | | + + + + + | Floyd Herndon | ECON | NA | | | | | NA, | | + + + + + Care Team Providers + +------+ + | Care Home Energy Consultant Name | Role | Phone | + [...] + + | 05/28/ | Office | [facility] | Beltran Fields, | Hypokalemia (Primary | | 2015 | Visit | MEDICINE [address] [place] [address] | [address] | Dx); Iron | | | | AVE [place], | [place] [address] [place], | deficiency anemia; | | | | [place] [address] | [place] [address] | Status post | | | | [phone] | [phone] | prostatectomy; | | | | | [...] per Cardiology Dr Niranjan Luevano MD in [place]. He underwent a stressecho test this january [...] child and 3 stepchildren. He lives in [place]. 9 living Grandchildren. Review of Systems [...] | | | | | | [place] [address] | | | | | | [phone] | | | | | | | | +--------+---------+ + + + documented as of this encounter Results Hemoglobin A1C [...] + | [facility] | [address] | [place] | [phone] | | [facility] | | [address] | | | - LABORATORY | | [...] + + + + + + | eGFR, | >60Comment: GLOMERULAR | >=60 | [facility] | | | non- | FILTRATION | mL/min/1.73m2 | [facility] | | | [place] | RATE,ESTIMATED | | MEDICAL | | | | mL/min/1.02f1Lata than | | CENTER - | | [...] | 9.4 | 8.3 - 10.5 | [facility] | | | | | mg/dL | [...] [address] | [place] | [phone] | | [facility] | | [address] | | | - LABORATORY | | | | + + + + + CBC with Differential (11/14/2015 12:09 PM PST) + + + + + + | Component | Value | Ref Range | Performed | Pathologist | | | | | At | Signature | + + + + + + | White Blood | 8.6 | 4.0 - 11.0 K/uL | [facility] | | | Cells | | | [facility] | | | | | | MEDICAL | | | | | | CENTER - | | | | | | LABORATORY | | + + + + + + | Red Blood | 5.28 | 4.30 - 5.70 | [facility] | | | Cells | | M/uL | [facility] | | | | | | MEDICAL | | | | | | CENTER - | | | | | | LABORATORY | | + + + + + + | Hemoglobin | 12.7 (L) | 13.5 - 18.0 | [facility] | | | | | g/dL | [facility] | | | | [...] | | Basophils | | K/uL | [facility] | | [...] [address] | [place] | [phone] | | [facility] | | [address] | | | - LABORATORY | | [...]
--- OUTSIDE RECORDS SUMMARY | ~2020-08-30 | XMS | Encounter Summary ---
Demographics + + + | Address | [address] | | | [place] [address] | + + + | Home Phone | | + + + | Preferred Language | Unknown | + + + | Marital Status | | + + + | Jewish Affiliation | 1009 | + + + | Race | White | + + + | Ethnic Group | Not or | + + + Author + + + | Author | [facility] | | | and [place] | + + + | Organization | [facility] | | | [...] [place] | | | | | [address] | | + + + + + | Floyd Herndon | ECON | NA | | | | | NA, | | + + + + + Care Team Providers + +------+ + | Care Pediatric Urologist Name | Role | Phone | + +------+ + | Beltran Fields MD | PCP | | + +------+ + Reason for Visit + +--------+ + | Reason | Onset | Comments | | | Date | | + +--------+ + | Medication Refill | 12/10/ | | | | 2015 | | + +--------+ + Encounter Details +--------+--------+ + + + | Date | Type | Department | Care Team | Description | +--------+--------+ + + + | 12/10/ | Refill | [facility] | Beltran Fields, | Medication Refill | | 2015 | | MEDICINE [address] | [address] | | | | | AVE [place], | [address] [place], | | | | | [place] [address] | [place] [id number] | | | | | [phone] | [phone] | | | | | | | [...] Telephone Encounter - Constance Morgan RN - 12/18/2015 11:54 AM PSTPatient called and stated [facility] It appears there was a note placed stating RX sent. Reviewed chart and could not find. Patient states iron level low i n recent labs. Do you want patient to have Ferrous Sulfate 325 MG EC tablet? Please advise . Thank you elephone E leah - Frieda Allen RN - 12/10/2015 12:19 PM PSTCalled patient to inform that an Iron prescription was sent to [facility] and to get labs done prior to next visit. Sent up front Lab orders: CBC, Iron, and Ferritin to be faxed to [facility].Elect ronically signed by Frieda Allen RN at 12/10/2015 12:42 PM PSTdocumented in this encou nter Plan of Treatment +--------+---------+ + + + | Date | Type | Specialty | Care Team | Description | +--------+---------+ + + + | 11/05/ | Office | Cardiology | Cristiano Stout, | | | 2019 | Visit | | MD [address] | | | | | | [place], | | | | | | [place] [address] | | | | | | [phone] | | | | | | | | +--------+---------+ + + + documented as of this encounter Visit Diagnoses Not on filedocumented in this encounter"
--- OUTSIDE RECORDS SUMMARY | ~2020-08-30 | XMS | Encounter Summary ---
Demographics + + + | Address | [address] | | | [place] [address] | + + + | Home Phone | | + + + | Preferred Language | Unknown | + + + | Marital Status | | + + + | Muslim Affiliation | 1009 | + + + | Race | White | + + + | Ethnic Group | Not or | + + + Author + + + | Author | [facility] | | | and [place] | + + + | Organization | [facility] | | | [...] [place] | | | | | [address] | | + + + + + | Floyd Herndon | ECON | NA | | | | | NA, | | + + + + + Care Team Providers + +------+ + | Care Insulation Worker Name | Role | Phone | + +------+ + | Beltran Fields MD | PCP | | + +------+ + Reason for Referral Evaluate & Treat (Routine) + + + + + + + | Status | Reason | Specialty | Diagnoses / | Referred By | Referred To | | | | | Procedures | Contact | Contact | + + + + + + + | Authorized | Specialty | Cardiology | Diagnoses | Morjulián, | [facility], | | | Services | | Atrial | Betlran Nunn MD | Eduardo | | | Required | | fibrillation | [address] | MD Robby | | | | | with rapid | [address] [address] | [address] | | | | | ventricular | [place] | [place] | | | | | response | [place] | [place] | | | | | ([facility]) | [address] | [address] Phone: | | | | | | Phone: | [phone] | | | | | | [phone] | Fax: | | | | | | Fax: | [phone] | | | | | | [phone] | | + + + + + + + Encounter Details +--------+ + + + + | Date | Type | Department | Care Team | Description | +--------+ + + + + | 03/26/ | Orders Only | [facility] | Beltran Fields, | ATRIAL FIBRILLATION | | 2019 | | [facility] [place] [facility] | [address] | WITH RAPID | | | | MEDICINE [place] | [place] [address] [place], | VENTRICULAR RESPONSE | | | | [address] | [place] [address] | (Primary Dx) | | | | [address] [place], | [phone] | | | | | [place] [address] | | | | | | [phone] | | | +--------+ + + + [...] | +--------+---------+ + + + | 11/05/ Office | Cardiology | Cristiano Stout, | | | 2019 | Visit | | [address] | | | | | | [place], | | | | | | [place] [address] | | | | | | [phone] | | | | | | | | +--------+---------+ + + + + + +--------+ + + | Name | Type | Priori | Associated Diagnoses | Order Schedule | | | | ty | | | + + +--------+ + + | Cardiology, External | Outpatient | Routin | ATRIAL | Ordered: 03/26/2020 | | - AMB Referral | Referral | e | FIBRILLATION WITH | | | | | | RAPID VENTRICULAR | | | | | | RESPONSE | | + + +--------+ + + documented as of this encounter Visit Diagnoses + + | Diagnosis | + + | ATRIAL FIBRILLATION WITH RAPID VENTRICULAR RESPONSE - Primary Atrial fibrillation | + + documented in this encounter"
--- OUTSIDE RECORDS SUMMARY | ~2020-08-30 | XMS | Encounter Summary ---
Demographics + + + | Address | [address] | | | [place] [address] | + + + | Home Phone [...] + + | Author | [facility] | | | and [place] | + + + | Organization | [facility] | | | and [...] [place] | | | | | [address] | | + + + + + | Floyd Herndon | ECON | NA | | | | | NA, | | + + + + + Care Team Providers + +------+ + | Care Network Technician Name | Role | Phone | + +------+ + | Beltran Fields MD | PCP | | + +------+ + Reason for Visit + +--------+ + | Reason | Onset | Comments | | | Date | | + +--------+ + | Medication Refill | 10/16/ | | | | 2013 | | + +--------+ + Encounter Details +--------+--------+ + + + | Date | Type | Department | Care Team | Description | +--------+--------+ + + + | 10/16/ | Refill | [facility] | Beltran Fields, | Medication Refill | | 2013 | | MEDICINE [address] | [address] | | | | | AVE [place], | [address] [place], | | | | | [place] [address] | [place] [address] | | | | | [phone] | [phone] | | | | | | | [...] | | | | | | [place] [address] | | | | | | [phone] | | | | | | | | +--------+---------+ + + + documented as of this encounter Visit Diagnoses + + | Diagnosis | + + | Hyperlipidemia - Primary Other and unspecified hyperlipidemia | + + documented in this encounter"
--- OUTSIDE RECORDS SUMMARY | ~2020-08-30 | XMS | Encounter Summary ---
Demographics + + + | Address | [address] | | | [place] [address] | + + + | Home Phone [...] | [facility] | | | and [place] | + + + | Organization | [facility] | | [...] [place] | | | | | [address] | | + + + + + | Floyd Herndon | ECON | NA | | | | | NA, | | + + + + + Care Team Providers + +------+ + | Care Airbrush Artist Photography Name | Role | Phone | + +------+ + | Beltran Fields MD | PCP | | + +------+ + Reason for Visit + +--------+ + | Reason | Onset | Comments | | | Date | | + +--------+ + | Appointment | 12/02/ | | | | 2015 | | + +--------+ + Encounter Details +--------+ + + + + | Date | Type | Department | Care Team | Description | +--------+ + + + + | 12/02/ | Telephone | [facility] | Jordin Padrno, | Appointment | | 2015 | | [address] | MD [address] | | | | | [place] | [place] | | | | | [address] | [address] | | | | | [phone] | | | +--------+ + + + [...] this encounter Miscellaneous Notes Telephone Encounter - Nano Ordonez CMA - 12/02/2015 2:37 PM PSTCalled and spoke with gerald multani regarding that prior to his 12/10/15 appt he is needing to have a F&T PSA done. Bjorn das verbalized understanding and would like PSA order to be faxed over to [facility] in [place]. Will go in on Wednesday to have blood drawn for PSA. documented in this e ncounter Plan of Treatment +--------+---------+ + + + | Date | Type | Specialty | Care Team | Description | +--------+---------+ + + + | 11/05/ | Office | Cardiology | Cristiano Stout, | | | 2019 | Visit | | MD [address] | | | | | | [place], | | | | | | [place] [address] | | | | | | [phone] | | | | | | | | +--------+---------+ + + + documented as of this encounter Visit Diagnoses Not on filedocumented in this encounter"
--- OUTSIDE RECORDS SUMMARY | ~2020-08-30 | XMS | Encounter Summary ---
Demographics + + + | Address | [address] | | | [place] [address] | + + + | Home Phone | | + + + | Preferred Language | Unknown | + + + | Marital Status | | + + + | Episcopal Affiliation | 1009 | + + + | Race | White | + + + | Ethnic Group | Not or | + + + Author + + + | Author | [facility] | | | and [place] | + + + | Organization | [facility] | | | [...] [place] | | | | | [address] | | + + + + + | Floyd Herndon | ECON | NA | | | | | NA, | | + + + + + Care Team Providers + +------+ + | Care Currency Exchange Specialist Name | Role | Phone | [...] | obstruction (Primary | | | | [place], [place] | [place], [place] | Dx) | | | | [address] | [address] | | | | | [phone] | | | +--------+ + + + [...] | | | | | | [place] [address] | | | | | | [phone] | | | | | | | | +--------+---------+ + + + + +------+--------+ + + | Name | [...]
--- OUTSIDE RECORDS SUMMARY | ~2020-08-30 | XMS | Encounter Summary ---
Demographics + + + | Address | [address] | | | [place] [address] | + + + | Home Phone | | + + + | Preferred Language | Unknown | + + + | Marital Status | | + + + | Yazidism Affiliation | 1009 | + + + | Race | White | + + + | Ethnic Group | Not or | + + + Author + + + | Author | [facility] | | | and [place] | + + + | Organization | [facility] | | | [...] [place] | | | | | [address] | | + + + + + | Floyd Herndon | ECON | NA | | | | | NA, | | + + + + + Care Team Providers + +------+ + | Care Machinist Job Setter Name | Role | Phone | + [...] | 10/06/ | Refill | [facility] [place] [facility] | Beltran Fields, | Medication Refill | | 2019 | | MEDICINE [place] | [address] | | | | | [address] | [address] [place], | | | | | [place] | [place] [address] | | | | | [address] | [phone] | | | | | [phone] | | | +--------+--------+ + + + [...] [place], | | | | | | [place] [address] | | | | | | [phone] | | | | | | | | +--------+---------+ + + + documented as of this encounter Visit Diagnoses Not on filedocumented in this encounter"
--- OUTSIDE RECORDS SUMMARY | ~2020-08-30 | XMS | Encounter Summary ---
Demographics + + + | Address | [address] | | | [place] [address] | + + + | Home Phone | | + + + | Preferred Language | Unknown | + + + | Marital Status | | + + + | Sabianism Affiliation | 1009 | + + + | Race | White | + + + | Ethnic Group | Not or | + + + Author + + + | Author | [facility] | | | and [place] | + + + | Organization | [facility] | | | [...] [place] | | | | | [address] | | + + + + + | Floyd Herndon | ECON | NA | | | | | NA, | | + + + + + Care Team Providers + +------+ + | Care Director Housekeeping Name | Role | Phone | + +------+ + | Beltran Fields MD | PCP | | + +------+ + Reason for Visit + +--------+ + | Reason | Onset | Comments | | | Date | | + +--------+ + | Medication Refill | 12/01/ | | | | 2019 | | + +--------+ + Encounter Details +--------+--------+ + + + | Date | Type | Department | Care Team | Description | +--------+--------+ + + + | 12/01/ | Refill | [facility] [place] [facility] | Beltran Fields, | Medication Refill | | 2019 | | MEDICINE [facility] | [address] | | | | | [address] | [address] [place], | | | | | [place] | [place] [address] | | | | | [address] | [phone] | | | | | [phone] | | | +--------+--------+ + + + [...] this encounter Miscellaneous Notes Telephone Encounter - Megan Lundberg RN - 12/01/2019 2:13 PM PSTRefill request for HCTZ 50 mg tablet. Last refilled 08/28/19 Last visit 03/29/19 Next visit 01/23/20 documented in this en counter Plan of Treatment +--------+---------+ + + + | Date | Type | Specialty | Care Team | Description | +--------+---------+ + + + | 11/05/ | Office | Cardiology | Cristiano Stout, | | | 2019 | Visit | | MD [address] | | | | | | [place], | | | | | | [place] [address] | | | | | | [phone] | | | | | | | | +--------+---------+ + + + documented as of this encounter Visit Diagnoses Not on filedocumented in this encounter"
--- OUTSIDE RECORDS SUMMARY | ~2020-08-30 | XMS | Encounter Summary ---
Demographics + + + | Address | [address] | | | [place] [address] | + + + | Home Phone | | + + + | Preferred Language | Unknown | + + + | Marital Status | | + + + | Restorationist Affiliation | 1009 | + + + | Race | White | + + + | Ethnic Group | Not or | + + + Author + + + | Author | [facility] | | | and [place] | + + + | Organization | [facility] | | | [...] [place] | | | | | [address] | | + + + + + | Floyd Herndon | ECON | NA | | | | | NA, | | + + + + + Care Team Providers + +------+ + | Care Filing Machine Operator Name | Role | Phone [...] | 10/06/ | Refill | [facility] [place] [facility] | Beltran Fields, | Medication Refill | | 2012 | | MEDICINE [place] | [address] | | | | | [address] | [address] [place], | | | | | [place] | [place] [address] | | | | | [address] | [phone] | | | | | [phone] | | | +--------+--------+ + + + [...] | | | | | | [place] [address] | | | | | | [phone] | | | | | | | | +--------+---------+ + + + documented as of this encounter Visit Diagnoses Not on filedocumented in this encounter"
--- OUTSIDE RECORDS SUMMARY | ~2020-08-30 | XMS | Encounter Summary ---
Demographics + + + | Address | [address] | | | [place] [address] | + + + | Home Phone | | + + + | Preferred Language | Unknown | + + + | Marital Status | | + + + | Methodist Affiliation | 1009 | + + + | Race | White | + + + | Ethnic Group | Not or | + + + Author + + + | Author | [facility] | | | and [place] | + + + | Organization | [facility] | | [...] [place] | | | | | [address] | | + + + + + | Floyd Herndon | ECON | NA | | | | | NA, | | + + + + + Care Team Providers + +------+ + | Care Big Data Developer Name | Role | Phone | + [...] Description | +--------+--------+ + + + | 11/20/ | Refill | [facility] [place] [facility] | Beltran Fields, | Medication Refill | | 2020 | | [facility] | [address] | | | | | [address] | [address] [address] [place], | | | | | [place] | [place] [address] | | | | | [address] | [phone] | | | | | [phone] | | | +--------+--------+ + + + [...] this encounter Miscellaneous Notes Telephone Encounter - CarlosShaneJolene R - 11/27/2019 3:40 PM PSTCalled patient no answer left voicemail and sent out blue card. P M PSTTelephone Encounter - Carlos Jolene Cloud - 11/23/2019 2:53 PM PSTCalled patient no answer l eft voicemail to call office. TTelephone Encounter - Julia Kearns RN - 11/21/2019 3:50 PM PSTDue for 6 month medic ation management appointment. Please schedule with PCP. 3:5 0 PM PSTdocumented in this encounter Plan of Treatment +--------+---------+ + + + | Date | Type | Specialty | Care Team | Description | +--------+---------+ + + + | 11/05/ | Office | Cardiology | Cristiano Stout, | | 2019 | Visit | | MD [address] | | | | | | [place], | | | | | | [place] [address] | | | | | | [phone] | | | | | | | | +--------+---------+ + + + documented as of this encounter Visit Diagnoses Not on filedocumented in this encounter"
--- OUTSIDE RECORDS SUMMARY | ~2020-08-30 | XMS | Encounter Summary ---
Demographics + + + | Address | [address] | | | [place] [address] | + + + | Home Phone [...] | Author | [facility] | | | and [place] | + + + | Organization | [facility] | | | [...] [place] | | | | | [address] | | + + + + + | Floyd Herndon | ECON | NA | | | | | NA, | | + + + + + Care Team Providers + +------+ + | Care Dairy Equipment Repairer Name | Role | Phone | + +------+ + PCP | Unavailable | + +------+ + Encounter Details +--------+ + + + + | Date | Type | Department | Care Team | Description | +--------+ + + + + | 07/09/ | Hospital [facility] | | | | [facility] | Encounter | MED CTR XRAY [address] | | | | | | [place] | | | | | | [place] [address] | | | | | | [phone] | | | +--------+ + + + [...] | | | | | | [place] [address] | | | | | | [phone] | | | | | | | | +--------+---------+ + + + documented as of this encounter Visit Diagnoses Not on filedocumented in this encounter"
--- OUTSIDE RECORDS SUMMARY | ~2020-08-30 | XMS | Encounter Summary ---
Demographics + + + | Address | [address] | | | [place] [address] | + + + | Home Phone | | + + + | Preferred Language | Unknown | + + + | Marital Status | | + + + | Bahai Affiliation | 1009 | + + + | Race | White | + + + | Ethnic Group | Not or | + + + Author + + + | Author | [facility] | | | and [place] | + + + | Organization | [facility] | | | and [...] [place] | | | | | [address] | | + + + + + | Floyd Herndon | ECON | NA | | | | | NA, | | + + + + + Care Team Providers + +------+ + | Care Licensed Bondsman Name | Role | Phone | + +------+ + | Beltran Fields MD | PCP | | + +------+ + Reason for Referral Diagnostic/Screening (Routine) +--------+--------+ + + + + | Status | Reason | Specialty | Diagnoses / | Referred By | Referred To | | | | | Procedures | Contact | Contact | +--------+--------+ + + + + | Closed | | | Diagnoses | Vito, | OP ST | | | | | Gross | Jordin Garcia MD | [place] | | | | | hematuria | [address] [facility] | | | | | Procedures | [address] | [address] | | | | | CT Urogram w | [place] | AVE | | | | | wo Contrast | [address] | [place] | | | | | [address] | Phone: | [phone] | | | | | SCAN,ABDOMEN | [phone] | Phone: | | | | | T AND | Fax: | [phone] | | | | | PELVIS,COMBO | [phone] | Fax: | | | | | | | [phone] | +--------+--------+ + + + + Reason for Visit + + + | Reason | Comments | + + + | Hematuria | | + + + Encounter Details +--------+---------+ + + + | Date | Type | Department | Care Team | Description | +--------+---------+ + + + | 08/21/ | Office | [facility] | Jordin Padron, | Gross hematuria | | 2013 | Visit | [address] | MD [address] | (Primary Dx); PSA, | | | | [place] | [place] | INCREASED; | | | | [address] | [address] | Hypertrophy of | | | | [phone] | | prostate with | | | | | | urinary obstruction | | | | | | and other lower | | | | | | urinary tract | | | | | | symptoms (LUTS) | +--------+---------+ + + + Social History [...] + + + | Blood Pressure | 130/80 | 08/21/2014 8:55 AM | | | | | PDT | | + + + + + | Pulse | 68 | 08/21/2014 8:55 AM | | | | | PDT | | + + + + + | Temperature | - | - | | + + + + + | Respiratory Rate | 16 | 08/21/2014 8:55 AM | | | | | PDT | | + + + + + | Oxygen Saturation | - | - | | + + + + + | Inhaled Oxygen | - | - | | | Concentration | | | | + + + + + | Weight | 121.6 kg (268 lb) | 08/21/2014 8:55 AM | | | | | PDT | | + + + + + | Height | 177.8 cm (5' 10") | 08/21/2014 8:55 AM | | | | | PDT | | + + + + + | Body Mass Index | 38.45 | 08/21/2014 8:55 AM | | | | | PDT | | + + + + + documented in this encounter Progress Notes Jordin Padron MD - 08/21/2014 8:54 AM PDTFormatting of this note might be different fro m the original. Guy is a 68 y.o. male patient of Beltran Fields being seen today for evaluation of juan s hematuria. CC: Gross hematuria Dr. Thurman has history of marked prostatic hypertrophy, gross hematuria, abnormal PSA, and f amily history of prostate cancer. A younger brother was treated for prostate cancer in approximately 2011. An episode of gross hematuria prompted cystoscopy on 09/23/2000 and which was negative excep t for marked trilobar prostatic hyperplasia. CT imaging of the abdomen and pelvis with cont rast on 09/01/2010 at [facility] demonstrated normal appearing kidneys , bladder wall thickening, but no renal masses. Dr. Thurman's PSA has also been abnormal. Prostate biopsies on 09/04/2009 and 04/28/2012 were negative. PSA on 03/27/2010 was 8.75. PSA on 10/20/2011 was 7.43. PSA on 03/30/2012 was 6.5 2. ENVIRONMENTAL CONTROL ADMINISTRATOR 3 on 04/04/2012 was normal at 6.2. The prostate biopsy on 04/28/2012 demonstrated a p rostate gland volume of 172 cc. 14 biopsy cores were obtained, and all biopsies were negati ve for tumor. 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 He has berg d no bleeding since that time. He denies any trauma. He denies any dysuria or increased ur inary frequency. He denies any fever or chills. He denies any urinary tract infection symp toms. He denies any renal colic. He is not using any tamsulosin or finasteride, but reports his urinary symptoms are not par ticularly bothersome to him. He has sensation of incomplete bladder emptying. He denies an y urinary incontinence. Over [address] Thurman today, prior to performing his cystoscopic examinat ion, almost all in counseling regarding gross hematuria, abnormal PSA, marked prostatic hype rtrophy, treatment options for obstructive voiding symptoms including medical and surgical t herapies, significance of family history of prostate cancer and discussion regarding repeati ng prostate biopsies. Other than chronic low back pain, 10 point review of systems today is negative. Past Medical History He has a past medical history of Bening Prostatic Hyperplasia; Hypertension; Gout; Gastropa resis; GERD (gastroesophageal reflux disease); Schatskis Ring; Paroxysmal atrial fibrillatio n (HCC); Chronic low back pain/Intermittment Sciatica; Hyperlipidemia; Depression; Osteoarth ritis (09/08/2012); Colonic polyps; Unspecified vitamin D deficiency (04/06/2011); Obstructiv e sleep apnea (01/19/2011); and ATRIAL FIBRILLATION WITH RAPID VENTRICULAR RESPONSE (04/06/2012 ). Past Surgical History He has past surgical history that includes Tonsillectomy; Appendectomy (1987); Vasectomy; L eft meniscectomy; Bilateral carpal tunnel; and Laminectomy L3-S1. Family History: His family history includes Prostate cancer in his father. Social History: He reports that he has never smoked. He has never used smokeless tobacco. He reports that h e drinks alcohol. He reports that he does not use illicit drugs. Allergies Allergen Reactions Diltiazem Hcl Rash Medications: Outpatient Encounter Prescriptions as of 08/21/2014 Medication Sig Dispense Refill allopurinol (ZYLOPRIM) 300 mg tablet TAKE ONE TABLET BY MOUTH EVERY DAY 90 tablet 3 aspirin 325 mg EC tablet Take 325 mg by mouth Daily. flecainide (TAMBOCOR) 50 MG tablet Take 1 tablet by mouth 2 times daily. 180 tablet 3 Fluticasone Propionate (FLONASE NA) SUSP 2 sprays each nostril daily hydrochlorothiazide 50 mg tablet Take 1 tablet by mouth Daily. 90 tablet 1 HYDROcodone-acetaminophen (NORCO) 10-325 mg per tablet One po TID prn pain 50 tablet 0 HYDROcodone-acetaminophen (VICODIN) 5-500 mg per tablet Take 1 tablet by mouth every 4 hours as needed for Pain. 30 tablet 0 KLOR-CON M10 10 MEQ tablet TAKE ONE TABLET BY MOUTH ONCE DAILY 90 tablet 0 metoprolol tartrate (LOPRESSOR) 25 mg tablet TAKE ONE TABLET BY MOUTH AT BEDTIME 90 ta blet 2 metoprolol tartrate (LOPRESSOR) 50 mg tablet Take 1 tablet by mouth Daily. 30 tablet 0 multivitamin (THERAGRAN) per tablet one tablet by mouth daily niacin 500 MG CR capsule 4 capsules by mouth at bedtime [place]-3 Fatty Acids (EQL FISH OIL) 1000 MG CAPS two capsules by mouth daily Omeprazole Magnesium (PRILOSEC OTC PO) TBEC one tablet by mouth daily sildenafil (VIAGRA) 100 MG tablet Take 100 mg by mouth Daily as needed. simvastatin (ZOCOR) 40 mg tablet Take 1 tablet by mouth nightly. 90 tablet 0 tadalafil (CIALIS) 20 MG tablet Take one-half to one tablet by mouth as needed prior to sexual activity 10 tablet 0 tadalafil (CIALIS) 20 MG tablet Take one-half to one tablet by mouth as needed prior to sexual activity 10 tablet 0 tadalafil (CIALIS) 20 MG tablet Take one-half to one tablet by mouth as needed prior to sexual activity 10 tablet 0 UNCODED MEDICATION Diagnosis: Obstructive Sleep Apnea ICD-9: 327.23 Length of Need: 99 Months 1 Device 0 REVIEW OF SYSTEMS: [] All Negative Constitutional Symptoms: []Fever []Chills []Headache []Change in appetite, weight, energy []Other: Neurological: []Tremors []Dizzy Spells []Numbness/Tingling []Seizures []Other: Endocrine: []Excessive thirst []Too hot/cold []Tired/Sluggish Gastrointestinal: []Abdominal pain []Nausea/vomiting []Indigestion/heartburn []Change in stool size or shape or color []Pain with swallowing []Other: Cardiovascular: []Chest Pain []Rapid heart rate []High blood pressure [x]Other: A-fib Integumentary: []Skin rash []Boils []Persistent itch []Other: Musculoskeletal: []Neck Pain []Joint swelling/pain [x]Back pain []Bone pain []Other: Respiratory: []Wheezing []Frequent cough []Shortness of breath []Other: Hematologic/Lymphatic: []Swollen glands []Blood clotting problems []Prior blood transfusions []Other: Psychologic: Are you generally satisfied with your life? no Do you feel severely depressed? no Have you considered suicide? no Other: Habits: Do you smoke? no [x] Yes [] No Patient advised to follow up with PCP regarding positive review of syste ms. PHYSICAL EXAM Vitals: BP 130/80 | Pulse 68 | Resp 16 | Ht 1.778 m (5' 10") | Wt 121.564 kg (268 lb) | BMI 38.45 kg/m2 General: Awake, alert, in no acute distress. Speech is fluent. Appears to be stated age. Neck: Supple; no lymphadenopathy. Lungs: Normal respiratory effort, no wheezing, no stridor, no tachypnea. Chest: No rib or bony tenderness. Back: No CVA tenderness. Abdomen: Soft, nontender, no hepatosplenomegaly. No masses. No guarding; benign. Bladder nondistended. No flank mass or tenderness. Extremities: Non-edematous. Hips and long bones nontender to fist percussion. Neuro: Awake, alert, oriented x3. Normal station and gait. Psychiatric: Mood and affect are normal. Normal judgment. Skin: Warm and dry, no erythematous rash. Genitalia: No lesion. Scrotum is supple and nonerythematous. Phallus is normal in appearanc e. Benign scrotal contents. Procedure: cystoscopy I discussed with Guy the indications for cystoscopy and the risks, benefits, and alternat jamie of cystoscopy. Alternatives include doing nothing or seeking a second opinion. Risks in clude but are not limited to bleeding, pain, infection, failure of the procedure, need for a dditional procedures, inherent risks of any surgical procedure and anesthesia. After obtaining informed consent, Guy was prepped and draped in a sterile fashion. Two pe rcent xylocaine was used as a topical anesthetic. The flexible cystoscope was introduced into the urethra and into the bladder. The bladder w as systematically surveyed and investigated and was found to demonstrate bladder trabeculati on, but no masses or stones or tumors. There are no polyps or growths. No blood clots. No bleeding source identified in the bladder. The ureteral orifices and trigone were very dif ficult to visualize due to significant intravesical protrusion of the prostate gland. I itzel pect significant J-hooking of the ureters. The cystoscope was retroflexed and the bladder n loni region was normal in appearance, except for the presence of very prominent intravesical protrusion of the prostate gland. The cystoscope was slowly withdrawn and the prostate demonstrates marked trilobar hypertrop hy. His prostate gland appears obstructive in nature. Multiple friable appearing vessels w ere present in the prostatic urethra, especially near the apex. The anterior urethra is nor mal in appearance. The cystoscope is withdrawn. Guy tolerated the procedure well. There were no complication s. To summarize, the cystoscopic exam demonstrated marked trilobar prostatic hyperplasia with intravesical protrusion of the prostate and obstruction of the bladder outlet, but no bladde r tumors. Source of gross hematuria appears to be friable appearing vessels within the pros tatic urethra. DIAGNOSTIC DATA: Lab Results Component Value Date CREA 0.98 07/26/2014 BUN 13 07/26/2014 NA 138 07/26/2014 K 3.5 07/26/2014 CL 101 07/26/2014 CO2 29 07/26/2014 Lab Results Component Value Date ALT 20 07/26/2014 AST 23 07/26/2014 ALKPHOS 63 07/26/2014 BILITOT 0.7 07/26/2014 Lab Results Component Value Date WBC 8.3 07/26/2014 HGB 15.1 07/26/2014 HCT 44.3 07/26/2014 MCV 87.5 07/26/2014 PLT 207 07/26/2014 Lab Results Component Value Date PSA 10.65* 07/26/2014 PSA 05/08/2014 is 11.88. PSA 10/27/2013 is 12.91. PSA 10/20/2011 is 7.43. PSA 03/27/2010 is 8.75. PSA 05/31/2009 is 5.44. Urinalysis today is negative. Urinalysis 08/15/2014 showed 0 WBC >50 RBC, no bacteria Lab Results Component Value Date COLORUA YELLOW 11/13/2013 COLORUA YELLOW 11/13/2013 CLARITYUA Hazy 08/15/2014 PHUR 7.0 08/15/2014 SPECIFICGRAV 1.010 08/15/2014 PROTUA Negative 08/15/2014 BLOODU 250 chen/uL 08/15/2014 GLUCOSEU Normal 08/15/2014 KETONES Negative 08/21/2014 BILIRUBINUA Negative 08/15/2014 NITRITEUA Negative 08/15/2014 LEUKOESTUA Negative 08/15/2014 UROBILIUA Normal 08/15/2014 WBCUA 0-2 08/15/2014 RBCUA 50-100* 08/15/2014 SQUAMEPIUA RARE 11/13/2013 SQUAMEPIUA RARE 11/13/2013 BACTERIAUA Negative 08/15/2014 IMPRESSION: 1. Gross painless hematuria. This appears to be secondary to friable appearing vessels wi thin the prostatic urethra. 2. Marked prostatic hyperplasia. Prostate gland volume was 172 cc on 04/28/2012. 3. Abnormal PSA. 4. Family history of prostate cancer. 5. Moderate obstructive voiding symptoms. PLAN: A CT IVP will be obtained at this time. A urine cytology was collected today. We had a lengthy discussion regarding treatment options for his BPH and obstructive voiding symptoms. Given the large size of prostate gland I have recommended a suprapubic/simple pr ostatectomy as the best form of therapy. However, we also discussed using finasteride or da bossman Cialis or Flomax or performing TURP or laser photo vaporization of prostate gland. Thes e procedures are described to him in detail. He does not wish to undergo any type of surgical treatment and does not wish to add another medication to his regimen at this time. He elects observation/nontreatment. We also discussed his abnormal PSA and also related this to his family history of prostate cancer. He is aware that he is at increased risk of developing prostate cancer. A prostate biopsy was discussed, but he is not ready to proceed with a repeat biopsy at this time. At a minimum, Guy will followup in one year with a free and total PSA drawn prior to his followup visit, and a repeat urinalysis, PVR, AUA symptom score. Patient instructed to resume usual and customary care with primary care provider. I asked Guy to notify me if there were any difficulties voiding, or UTI symptoms, or flan k pain, or for any questions or concerns whatsoever. This document was generated in part using voice recognition software. Although every effor t is made to edit the content, track watchman errors may occur. Nano Lyn CMA - 08/21/2014 8:52 AM PDTConsen t form signed & time out form completed Sent to [facility] for cytology via biomedical technician. documented in this e ncounter Procedure Notes ERNIE ROMERO - 08/21/2014 12:00 AM PDTAssociated Order(s): PATHOLOGY - EXTERNAL SCANEle ctronically signed by Prerna Clarke at 08/27/2014 3:14 PM PDTdocumented in this encounter Miscellaneous Notes Miscellaneous - ONBASE SCAN [facility] - 08/21/2014 12:00 AM PDTElectronically signed by [facility] at 08/24/2014 2:49 PM PDTMiscellaneous - ONBASE SCAN [facility] - 08/21/2014 12:00 AM PDTEle ctronically signed by [facility] at 08/24/2014 2:49 PM PDTdocumented in this encounter Plan of Treatment +--------+---------+ + + + | Date | Type | Specialty | Care Team | Description | +--------+---------+ + + + | 11/05/ | Office | Cardiology | Cristiano Stout, | | | 2019 | Visit | | MD [address] | | | | | | [place], | | | | | | [place] [address] | | | | | | [phone] | | | | | | | | +--------+---------+ + + + + +---------+--------+ + + | Name | Type | Priori | Associated Diagnoses | Order Schedule | | | | ty | | | + +---------+--------+ + + | CT Urogram w wo | Imaging | Routin | Gross hematuria | Expected: | | Contrast | | e | | 08/21/2014, Expires: | | | | | | 08/21/2015 | + +---------+--------+ + + documented as of this encounter Procedures + +--------+ + + + | Procedure Name | Priori | Date/Time | Associated Diagnosis | Comments | | | ty | | | | + +--------+ + + + | POCT URINALYSIS, | Routin | 08/21/2014 | Gross hematuria | Results for this | | AUTO WITH CONF | e | 9:00 AM | | procedure are in the | | | | PDT | | results section. | + +--------+ + + + | PATHOLOGY - EXTERNAL | | 08/21/2014 | | | | SCAN | | 12:00 AM | | | | | | PDT | | | + +--------+ + + + documented in this encounter Results POCT Urinalysis Dipstick Automated (08/21/2014 9:00 AM PDT) + + + + + + | Component | Value | Ref Range | Performed | Pathologist | | | | | At | Signature | + + + + + + | Color, UA, | Yellow | | | | | POC | | | | | + + + + + + | Clarity, | Clear | | | | | UA, POC | | | | | + + + + + + | Glucose, | Negative | | | | | UA, POC | | | | | + + + + + + | Bilirubin, | Negative | | | | | UA, POC | | | | | + + + + + + | Ketones, | Negative | Negative | | | | UA, POC | | | | | + + + + + + | Specific | 1.005 | | | | | [place], | | | | | | UA, POC | | | | | + + + + + + | Blood, UA, | Negative | | | | | POC | | | | | + + + + + + | pH, UA, POC | 7.0 | | | | + + + + + + | Protein, | Negative | | | | | UA, POC | | | | | + + + + + + | Urobilinoge | 0.2 E.U./dL | | | | | n, UA, POC | | | | | + + + + + + | Nitrite, | Negative | | | | | UA, POC | | | | | + + + + + + | Leukocyte | Negative | | | | | Esterase, | | [...] specimen | | (specimen) | + + documented in this encounter Visit Diagnoses + + | Diagnosis | + + | Gross hematuria - Primary | + + | PSA, INCREASED Elevated prostate specific antigen (PSA) | + + | Hypertrophy of prostate with urinary obstruction and other lower urinary tract | | symptoms (LUTS) | + + documented in this encounter
--- OUTSIDE RECORDS SUMMARY | ~2020-08-30 | XMS | Encounter Summary ---
Demographics + + + | Address | [address] | | | [place] [address] | + + + | Home Phone | | + + + | Preferred Language | Unknown | + + + | Marital Status | | + + + | Baptism Affiliation | 1009 | + + + | Race | White | + + + | Ethnic Group | Not or | + + + Author + + + | Author | [facility] | | | and [place] | + + + | Organization | [facility] | | [...] [place] | | | | | [address] | | + + + + + | Floyd Herndon | ECON | NA | | | | | NA, | | + + + + + Care Team Providers + +------+ + | Care Smash Fixer Name | Role | Phone | + [...] Description | +--------+--------+ + + + | 02/08/ | Refill | [facility] | Beltran Fields, | Medication Refill | | 2013 | | [facility] | [address] | | | | | [address] | [place] [address] [place], | | | | | [place] | [place] [address] | | | | | [address] | [phone] | | | | | [phone] | | | +--------+--------+ + + + [...] | | | | | | [place] [address] | | | | | | [phone] | | | | | | | | +--------+---------+ + + + documented as of this encounter Visit Diagnoses Not on filedocumented in this encounter"
--- OUTSIDE RECORDS SUMMARY | ~2020-08-30 | XMS | Encounter Summary ---
Demographics + + + | Address | [address] | | | [place] [address] | + + + | Home Phone | | + + + | Preferred Language | Unknown | + + + | Marital Status | | + + + | Presybeterian Affiliation | 1009 | + + + | Race | White | + + + | Ethnic Group | Not or | + + + Author + + + | Author | [facility] | | | and [place] | + + + | Organization | [facility] | | | [...] [place] | | | | | [address] | | + + + + + | Floyd Herndon | ECON | NA | | | | | NA, | | + + + + + Care Team Providers + +------+ + | Care Artist Manager Name | Role | Phone | + +------+ + | Beltran Fields MD | PCP | | + +------+ + Encounter Details +--------+ + + + + | Date | Type | Department | Care Team | Description | +--------+ + + + + | 07/27/ | Orders Only | [facility] [place] [facility] | Beltran Fields, | Elevated PSA | | 2013 | | MEDICINE [address] | [address] | (Primary Dx) | | | | [address] [place], | [place] [address] [place], | | | | | [place] [address] | [place] [address] | | | | | [phone] | [phone] | | | | | | | [...] | | | | | | [place] [address] | | | | | | [phone] | | | | | | | | +--------+---------+ + + + + +------+--------+ + + | Name | Type | Priori | Associated Diagnoses | Order Schedule | | | | ty | | | + +------+--------+ + + | PSA, Diagnostic | Lab | Routin | Elevated PSA | Expected: | | | | e | | 10/26/2014, Expires: | | | | | | 07/27/2015 | + +------+--------+ + + documented as of this encounter Visit Diagnoses + + | Diagnosis | + + | Elevated PSA - Primary Elevated prostate specific antigen (PSA) | + + documented in this encounter"
--- OUTSIDE RECORDS SUMMARY | ~2020-08-30 | XMS | Encounter Summary ---
Demographics + + + | Address | [address] | | | [place] [address] | + + + | Home Phone [...] + + + | Author | [facility] | | | and [place] | + + + | Organization | [facility] | | | and [...] [place] | | | | | [address] | | + + + + + | Floyd Herndon | ECON | NA | | | | | NA, | | + + + + + Care Team Providers + +------+ + | Care Optimization Manager Name | Role | Phone | [...] Description | +--------+--------+ + + + | 05/04/ | Refill | [facility] | Beltran Fields, | Medication Refill | | 2020 | | [facility] | [address] | | | | | MEDICINE [place] | [place] [address] [place], | | | | | [address] | [place] [address] | | | | | [place] [address] [place], | [phone] | | | | | [place] [address] | | | | | | [phone] | | | +--------+--------+ + + + [...] | | | | | | [place] [address] | | | | | | [phone] | | | | | | | | +--------+---------+ + + + documented as of this encounter Visit Diagnoses + + | Diagnosis | + + | Essential hypertension, benign | + + documented in this encounter"
--- OUTSIDE RECORDS SUMMARY | ~2020-08-30 | XMS | Encounter Summary ---
Demographics + + + | Address | [address] | | | [place] [address] | + + + | Home Phone | | + + + | Preferred Language | Unknown | + + + | Marital Status | | + + + | Temple Affiliation | 1009 | + + + [...] [place] | | | | | [address] | | + + + + + | Floyd Herndon | ECON | NA | | | | | NA, | | + + + + + Care Team Providers + +------+ + | Care Car Spotter Name | Role | Phone | + +------+ + | Beltran Fields MD | PCP | | + +------+ + Reason for Visit + +--------+ + | Reason | Onset | Comments | | | Date | | + +--------+ + | Medication Refill | 11/25/ | | | | 2016 | | + +--------+ + Encounter Details +--------+--------+ + + + | Date | Type | Department | Care Team | Description | +--------+--------+ + + + | 11/25/ | Refill | [facility] [place] [facility] | Beltran Fields, | Medication Refill | | 2016 | | MEDICINE [address] | [address] | | | | | [address] [place], | [address] [address] [place], | | | | | [place] [address] | [place] [address] | | | | | [phone] | [phone] | | | | | | | [...] | | | | | | [place] [address] | | | | | | [phone] | | | | | | | | +--------+---------+ + + + documented as of this encounter Visit Diagnoses Not on filedocumented in this encounter"
--- OUTSIDE RECORDS SUMMARY | ~2020-08-30 | XMS | Encounter Summary ---
Demographics + + + | Address | [address] | | | [place] [address] | + + + | Home Phone [...] Author | [facility] | | | and [place] | + + + | Organization | [facility] | | [...] [place] | | | | | [address] | | + + + + + | Floyd Herndon | ECON | NA | | | | | NA, | | + + + + + Care Team Providers + +------+ + | Care Supervisor Costuming Name | Role | Phone | + +------+ + PCP | Unavailable | + +------+ + Encounter Details +--------+ + + + + | Date | Type | Department | Care Team | Description | +--------+ + + + + | 12/03/ | Hospital | [facility] | | | | 2005 - | Encounter | [facility] | | | | | | CONV DEPT [address] | | | | 01/02/ | | [place], | | | | 2004 | | [place] [address] | | | | | | [phone] | | | +--------+ + + + [...] | | | | | | [place] [address] | | | | | | [phone] | | | | | | | | +--------+---------+ + + + documented as of this encounter Visit Diagnoses Not on filedocumented in this encounter"
--- OUTSIDE RECORDS SUMMARY | ~2020-08-30 | XMS | Encounter Summary ---
Demographics + + + | Address | [address] | | | [place] [address] | + + + | Home Phone | | + + + | Preferred Language | Unknown | + + + | Marital Status | | + + + | Moravian Affiliation | 1009 | + + + | Race | White | + + + | Ethnic Group | Not or | + + + Author + + + | Author | [facility] | | | and [place] | + + + | Organization | [facility] | | | [...] [place] | | | | | [address] | | + + + + + | Floyd Herndon | ECON | NA | | | | | NA, | | + + + + + Care Team Providers + +------+ + | Care Securities Adviser Name | Role | Phone | + +------+ + | Beltran Fields MD | PCP | | + +------+ + Reason for Visit + + + | Reason | Comments | + + + | Elevated PSA | | + + + Encounter Details +--------+---------+ + + + | Date | Type | Department | Care Team | Description | +--------+---------+ + + + | 11/13/ | Office | [facility] | Jordin Padron, | PSA, INCREASED | | 2012 | Visit | [address] | MD [address] | (Primary Dx); | | | | [place] | [place] | Microhematuria; BPH | | | | [address] | [address] | (benign prostatic | | | | [phone] | | hyperplasia); Other | | | | | | nonspecific finding | | | | | | on examination of | | | | | | urine | +--------+---------+ + + + Social History [...] + + + | Blood Pressure | 134/82 | 11/13/2013 9:52 AM | | | | | PST | | + + + + + | Pulse | 58 | 11/13/2013 9:52 AM | | | | | PST | | + + + + + | Temperature | - | - | | + + + + + | Respiratory Rate | 16 | 11/13/2013 9:52 AM | | | | | PST | | + + + + + | Oxygen Saturation | - | - | | + + + + + | Inhaled Oxygen | - | - | | | Concentration | | | | + + + + + | Weight | 118.8 kg (262 lb) | 11/13/2013 9:52 AM | | | | | PST | | + + + + + | Height | 177.8 cm (5' 10") | 11/13/2013 9:52 AM | | | | | PST | | + + + + + | Body Mass Index | 37.59 | 11/13/2013 9:52 AM | | | | | PST | | + + + + + documented in this encounter Progress Notes Jordin Padron MD - 11/13/2013 9:55 AM PSTFormatting of this note might be different fro m the original. Guy is a 68 y.o. male patient of Beltran Fields being seen today for follow up for elev ated PSA. Reviewed. See separate dictation. DAH Past Medical History He has a past medical history of Bening Prostatic Hyperplasia; Hypertension; Gout; Gastropa resis; GERD (gastroesophageal reflux disease); Schatskis Ring; Paroxysmal atrial fibrillatio n; Chronic low back pain/Intermittment Sciatica; Hyperlipidemia; and Depression. Past Surgical History He has past surgical [...] illicit drugs. Allergies Allergen Reactions Diltiazem Hcl Medications: Outpatient Encounter Prescriptions as of 11/13/2013 Medication Sig Dispense Refill allopurinol (ZYLOPRIM) 300 mg tablet Take 1 tablet by mouth Daily. 90 tablet 3 aspirin 325 mg EC tablet Take 325 mg by mouth Daily. Fluticasone Propionate (FLONASE NA) SUSP 2 sprays each nostril daily hydrochlorothiazide (HYDRODIURIL) 50 MG tablet Take 1 tablet by mouth Daily. 90 tablet 3 HYDROcodone-acetaminophen (NORCO) 10-325 mg per tablet One po TID prn pain 50 tablet 0 HYDROcodone-acetaminophen (VICODIN) 5-500 mg per tablet Take 1 tablet by mouth every 4 hours as needed for Pain. 30 tablet 0 KLOR-CON M10 10 MEQ tablet TAKE ONE TABLET BY MOUTH EVERY DAY 90 each 3 metoprolol tartrate (LOPRESSOR) 25 mg tablet TAKE ONE TABLET BY MOUTH AT BEDTIME 90 ta blet 2 metoprolol tartrate (LOPRESSOR) 50 mg tablet TAKE ONE TABLET BY MOUTH IN THE MORNING 9 0 tablet 3 multivitamin (THERAGRAN) per tablet one tablet by mouth daily niacin 500 MG CR capsule 4 capsules by mouth at bedtime [place]-3 Fatty Acids (EQL FISH OIL) 1000 MG CAPS two capsules by mouth daily Omeprazole Magnesium (PRILOSEC OTC PO) TBEC one tablet by mouth daily sildenafil (VIAGRA) 100 MG tablet Take 100 mg by mouth Daily as needed. simvastatin (ZOCOR) 40 mg tablet Take 1 tablet by mouth nightly. 90 tablet 3 tadalafil (CIALIS) 20 MG tablet Take one-half [...] A-fib Integumentary: []Skin rash []Boils []Persistent itch [x]Other: Eczema Musculoskeletal: []Neck Pain [x]Joint swelling/pain (knee) [x]Back pain []Bone pain []Other: Respiratory: []Wheezing []Frequent cough []Shortness of breath []Other: Hematologic/Lymphatic: []Swollen glands []Blood clotting problems []Prior blood transfusions []Other: Psychologic: Are you generally satisfied with your life? yes Do you feel severely depressed? no Have you considered suicide? no Other: Habits: Do you smoke? no [x] Yes [] No Patient advised to follow up with PCP regarding positive review of syste ms. BP 134/82 | Pulse 58 | Resp 16 | Ht 1.778 m (5' 10") | Wt 118.842 kg (262 lb) | BMI 37.59 k g/m2 Reviewed. See separate dictation. DAH Jordin Abebe MD - 11/13/2013 12:00 AM [facility] [address] [place] [address] [place] [address] FAX: [phone] Thurman is a 68-year-old male with history of gross hematuria, marked prostatic hyperplas ia, abnormal PSA, and family history of prostate cancer. His younger brother has been treated for prostate cancer in approximately 2011. An episode of gross hematuria prompted a cystoscopic examination on 09/23/2010, which was negative except for marked trilobar prostatic hyperplasia. CT imaging of the abdomen and pel vis with contrast on 09/01/2010 at [facility] demonstrated normal yue earing kidneys, and slight bladder wall thickening with no renal masses. Guy also has history of an abnormal PSA. PSA on 03/30/2012 was 6.52. A PCA3 on 04/04/2012 was normal at 6.2. A prostate biopsy on 04/28/2012 demonstrated a prostate gland volume of 172 mL. Fourteen bi opsy cores were obtained, and all biopsies were negative for tumor. A previous prostate biopsy on 09/04/2009 was also negative. PSA testing has ranged from approximately 8.75 on 03/27/2010 to 6.52 on 03/30/2012 and 7.43 on 10/20/2011. Free PSAs have always been normal. Dr. 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 He denies any di fficulties with voiding. He does note urinary urgency and hesitancy. Sometimes it is diffic ult to postpone voiding, but he denies any urinary incontinence. He has nocturia x0. He has urinary frequency every 2 to 4 hours. He denies having any difficulties with urinary tract infections or prostatitis. He denies any penile drainage, discharge or bleeding. He denies any testicular or perineal pain. He denies any hematospermia. He denies any renal colic. He does note joint pain in the knee, back pain, eczema, atrial fibrillation, Otherwise, 10-point review of systems today is negative. I spent in excess of [address] Thurman today, over 50% of this [facility] spent [facility] care regarding his abnormal PSA and marked prostatic hypertrophy. PAST MEDICAL HISTORY, SURGICAL HISTORY, FAMILY HISTORY, SOCIAL HISTORY, ALLERGIES AND CURRE NT MEDICATIONS: Reviewed, as documented in a separate EPIC note. PHYSICAL EXAMINATION VITAL SIGNS: Blood pressure 134/82, pulse 58, respirations 16, weight 262 pounds, body mass index 37.59. GENERAL: He is awake, alert, oriented x3, in no acute distress. He is pleasant, cooperative , well developed, well nourished. Mood and affect are normal. Speech is fluent. Gait is nor mal. He is overweight. BACK: No CVA tenderness. No tenderness to fist percussion of the spine. ABDOMEN: Soft, non tender, nondistended. No mass. No hepatosplenomegaly. Bladder is not palpably distended. No flank mass. No flank tenderness. GROIN: No lymphadenopathy. No palpable groin hernia. EXTERNAL GENITALIA: No penile lesion. No penile drainage, discharge or bleeding. Urethral meatus is normal in appearance. Scrotum was supple with benign contents. ANUS AND PERINEUM. Normal in appearance. Perianal sensation is intact. RECTAL: No mass. Normal sphincter tone . Prostate gland is smooth, elastic, nontender, non- nodular. There are no areas suspicious for malignancy. I cannot palpate his seminal vesicles due to the large size of his prostat e gland. I cannot palpate the base of his prostate gland due to the large size of his prost ate gland. He has a very broad prostate gland. Prostate gland volume is estimated in excess of 60-80 mL. DIAGNOSTIC DATA: Urinalysis today is pending. Urine dipstick shows 2+ blood, no nitrites, n o leukocytes. PSA 10/27/2013 is 12.91. PSA 10/20/2011 is 7.43. PSA 03/27/2010 is 8.75. PSA 05/31/2009 is 5.44. IMPRESSION 1. ABNORMAL PSA. He has undergone a negative prostate biopsy on 04/28/2012 and again on . Underlying etiology of his abnormal PSA appears to be secondary to marked prostati c hypertrophy and prostatic inflammation 2. MARKED PROSTATIC HYPERPLASIA. Prostate gland volume is 172 mL. 3. FAMILY HISTORY OF PROSTATE CANCER. Father and younger brother have been diagnosed with prostate cancer. 4. HISTORY OF GROSS HEMATURIA. This has not resolved. Current urinalysis is pending. Cysto scopic examination and CT imaging were negative on 09/23/2010. PLAN: I had a lengthy discussion with Guy today regarding his abnormal PSA and marked pr ostatic hypertrophy. We discussed continuing observation versus repeating another prostate biopsy. At this time, he elects continued observation. He will have a followup PSA level drawn in 6 months. If his PSA continues to remain concern ing, I advised him that he should have a prostate biopsy performed. If his PSA return to ba seline, continued observation may be elected. Guy will follow up in 1 year. A PSA level will be drawn prior to his followup visit. He w ill followup sooner if any difficulties should arise in the interim. We discussed that with his marked prostatic hypertrophy, he will eventually benefit from t herapy directed at his prostate gland. We discussed TUMT versus laser photovaporization of t he prostate versus use of Proscar. He does not wish to engage in any additional medical or surgical therapies at this time. I asked him to call the office if he changes his mind or if he has any difficulties with v oiding or if he has any questions or concerns or any problems whatsoever. Jordin Padron MD / [facility] JOB #: [id number] signed by Jordin Padron MD at 11/14/2013 7:23 PM PSTdocumen jeramy in this encounter Miscellaneous Notes Miscellaneous - ERNIE ROMERO - 11/13/2013 12:00 AM PST documented in this encounter Plan of Treatment +--------+---------+ + + + | Date | Type | Specialty | Care Team | Description | +--------+---------+ + + + | 11/05/ | Office | Cardiology | Cristiano Stout, | | | 2019 | Visit | | MD [address] | | | | | | [place], | | | | | | [place] [address] | | | | | | [phone] | | | | | | | | +--------+---------+ + + + documented as of this encounter Procedures + +--------+ + + + | Procedure Name | Priori | Date/Time | Associated Diagnosis | Comments | | | ty | | | | + +--------+ + + + | POCT URINALYSIS, | Routin | 11/13/2013 | Other nonspecific | Results for this | | AUTO WITH CONF | e | 9:58 AM | finding on | procedure are in the | | | | PST | examination of urine | results section. | + +--------+ + + + documented in this encounter Results Urinalysis, Reflex Microscopic and/or Culture (11/13/2013 10:57 [...] + + + + | Clarity, | CLEAR | | [facility] | | | Urine [...] - 1.030 | [facility] | | | [place], | | | [facility] | | [...] + | [facility] | [address] | [place], [place] | [phone] | | [facility] | | [address] | | | - LABORATORY | | | | + + + + + | [facility] | [address] | [place], [place] | | | [facility] | | [address], [facility] | | | - LABORATORY | | | | + + + + + POCT Urinalysis Dipstick Automated (11/13/2013 9:58 AM PST) + + + + + [...] | 1.005 | | | | | [place], | | | | | | UA, POC | | | | | + + + + + + | Blood, UA, | 2+ | | | | | POC | | | | | + + + + + + | pH, UA, POC | 6.0 | | | | + + + + + + | Protein, | Negative | | | | | UA, POC | | | | | + + + + + + | Urobilinoge | 0.2 | | | | | n, UA, [...] + + + | Reducing | | Negative | | | | Substances, | | [...] + | Diagnosis | + + | PSA, INCREASED - Primary Elevated prostate specific antigen (PSA) | + + | Microhematuria Microscopic hematuria | + + | BPH (benign prostatic hyperplasia) Unspecified hyperplasia of prostate without | | urinary obstruction and other lower urinary tract symptoms (LUTS) | + + | Other nonspecific finding on examination of urine | + + documented in this encounter
--- OUTSIDE RECORDS SUMMARY | ~2020-08-30 | XMS | Encounter Summary ---
Demographics + + + | Address | [address] | | | [place] [address] | + + + | Home Phone [...] [place] | | | | | [address] | | + + + + + | Floyd Herndon | ECON | NA | | | | | NA, | | + + + + + Care Team Providers + +------+ + | Care Family Service Worker Name | Role | Phone | + +------+ + | Beltran Fields MD | PCP | | + +------+ + Reason for Visit + +--------+ + | Reason | Onset | Comments | | | Date | | + +--------+ + | Records Request | 10/10/ | | | | 2013 | | + +--------+ + Encounter Details +--------+ + + + + | Date | Type | Department | Care Team | Description | +--------+ + + + + | 10/10/ | Telephone | [facility] [place] [facility] | Jordin Padron, | Records Request | | 2013 | | [address] | MD [address] | | | | | [place] | [place] | | | | | [address] | [address] | | | | | [phone] | | | +--------+ + + + [...] this encounter Miscellaneous Notes Telephone Encounter - Jordin Padron MD - 10/10/2014 10:02 AM PSTSaturation biopsies by Taylor Brumfield (40 biopsies) were negative. Dr. Thurman has elected to undergo a simple open prostatectomy with Dr. Brumfield. elephone Encounter - Terrence Sears RN - 10/10/2014 8:52 AM PSTI called Lalitha at [facility] and asked if Guy was s een there since 09/14/14. She said he had a saturation biopsy 09/21/14 and will fax that op a nd path note as well as the follow up note with results/plan. He has no further appointments scheduled there. Records received and to Dr Padron for review. documented in this encounter Plan of Treatment +--------+---------+ + + + | Date | Type | Specialty | Care Team | Description | +--------+---------+ + + + | 11/05/ | Office | Cardiology | Cristiano Stout, | | | 2019 | Visit | | [address] | | | | | | [place], | | | | | | [place] [address] | | | | | | [phone] | | | | | | | | +--------+---------+ + + + documented as of this encounter Visit Diagnoses Not on filedocumented in this encounter"
--- OUTSIDE RECORDS SUMMARY | ~2020-08-30 | XMS | Encounter Summary ---
Demographics + + + | Address | [address] | | | [place] [address] | + + + | Home Phone | | + + + | Preferred Language | Unknown | + + + | Marital Status | | + + + | Yazdanism Affiliation | 1009 | + + + | Race | White | + + + | Ethnic Group | Not or | + + + Author + + + | Author | [facility] | | | and [place] | + + + | Organization | [facility] | | [...] [place] | | | | | [address] | | + + + + + | Floyd Herndon | ECON | NA | | | | | NA, | | + + + + + Care Team Providers + +------+ + | Care Hall Director Name | Role | Phone | + [...] Description | +--------+--------+ + + + | 08/14/ | Refill | [facility] | Beltran Fields, | Medication Refill | | 2013 | | [facility] | MD [address] | | | | | [address] | [address] [place] [place], | | | | | [place] | [place] [address] | | | | | [address] | [phone] | | | | | [phone] | | | +--------+--------+ + + + [...] [place], | | | | | | [place] [address] | | | | | | [phone] | | | | | | | | +--------+---------+ + + + documented as of this encounter Visit Diagnoses Not on filedocumented in this encounter"
--- OUTSIDE RECORDS SUMMARY | ~2020-08-30 | XMS | Encounter Summary ---
Demographics + + + | Address | [address] | | | [place] [address] | + + + | Home Phone [...] Author | [facility] | | | and [place] | + + + | Organization | [facility] | | | and [...] [place] | | | | | [address] | | + + + + + | Floyd Herndon | ECON | NA | | | | | NA, | | + + + + + Care Team Providers + +------+ + | Care Hat Presser Name | Role | Phone | + +------+ + | Beltran Fields MD | PCP | | + +------+ + Reason for Visit + +--------+ + | Reason | Onset | Comments | | | Date | | + +--------+ + | Medication Refill | 02/08/ | | | | 2017 | | + +--------+ + Encounter Details +--------+--------+ + + + | Date | Type | Department | Care Team | Description | +--------+--------+ + + + | 02/08/ | Refill | [facility] [place] [facility] | Beltran Fields, | Medication Refill | | 2017 | | MEDICINE [address] | [address] | | | | | [address] [place], | [address] [place], | | | | | [place] [address] | [place] [address] | | | | | [phone] | [phone] | | | | | | | [...] | | | | | | [place] [address] | | | | | | [phone] | | | | | | | | +--------+---------+ + + + documented as of this encounter Visit Diagnoses + + | Diagnosis | + + | Other hyperlipidemia | + + | Essential hypertension, benign | + + documented in this encounter"
--- OUTSIDE RECORDS SUMMARY | ~2020-08-30 | XMS | Encounter Summary ---
Demographics + + + | Address | [address] | | | [place] [address] | + + + | Home Phone | | + + + | Preferred Language | Unknown | + + + | Marital Status | | + + + | Pentecostalism Affiliation | 1009 | + + + | Race | White | + + + | Ethnic Group | Not or | + + + Author + + + | Author | [facility] | | | and [place] | + + + | Organization | [facility] | | | [...] [place] | | | | | [address] | | + + + + + | Floyd Herndon | ECON | NA | | | | | NA, | | + + + + + Care Team Providers + +------+ + | Care Service Aide Name | Role | Phone | + +------+ + | Beltran Fields MD | PCP | | + +------+ + Reason for Visit + +--------+ + | Reason | Onset | Comments | | | Date | | + +--------+ + | Medication Refill | 01/14/ | | | | 2015 | | + +--------+ + Encounter Details +--------+--------+ + + + | Date | Type | Department | Care Team | Description | +--------+--------+ + + + | 01/14/ | Refill | [facility] [place] [facility] | Beltran Fields, | Medication Refill | | 2015 | | MEDICINE [address] | [address] | | | | | [address] [place], | [address] [place], | | | | | [place] [address] | [place] [address] | | | | | [phone] | | | | | | | [...] this encounter Miscellaneous Notes Telephone Encounter - Sonia Floyd Anibal - 01/15/2016 8:50 AM PSTHydrochlorothiazide 50 mg Qty 90 DOLR unsure, almost out Patient needs this called into [facility] in [place]. He can be reached at [phone] for questions. Last appointment 11/14/15 Next appointment 01/29/16 Tdocumented in this encounter Plan of Treatment +--------+---------+ + + + | Date | Type | Specialty | Care Team | Description | +--------+---------+ + + + | 11/05/ | Office | Cardiology | Cristiano Stout, | | | 2019 | Visit | | MD [address] | | | | | | [place], | | | | | | [place] [address] | | | | | | [phone] | | | | | | | | +--------+---------+ + + + documented as of this encounter Visit Diagnoses Not on filedocumented in this encounter"
--- OUTSIDE RECORDS SUMMARY | ~2020-08-30 | XMS | Encounter Summary ---
Demographics + + + | Address | [address] | | | [place] [address] | + + + | Home Phone | | + + + | Preferred Language | Unknown | + + + | Marital Status | | + + + | Holiness Affiliation | 1009 | + + + | Race | White | + + + | Ethnic Group | Not or | + + + Author + + + | Author | [facility] | | | and [place] | + + + | Organization | [facility] | | [...] [place] | | | | | [address] | | + + + + + | Floyd Herndon | ECON | NA | | | | | NA, | | + + + + + Care Team Providers + +------+ + | Care Autism Motor Specialist Name | Role | Phone | + +------+ + | Beltran Fields MD | PCP | | + +------+ + Reason for Visit + +--------+ + | Reason | Onset | Comments | | | Date | | + +--------+ + | Medication Refill | | | + +--------+ + | Medication Refill | 11/21/ | | | | 2020 | | + +--------+ + Encounter Details +--------+--------+ + + + | Date | Type | Department | Care Team | Description | +--------+--------+ + + + | 08/24/ | Refill | [facility] | Beltran Fields, | Medication Refill; | | 2019 | | MEDICINE [place] | [address] | Medication Refill | | | | [address] | [address] [place], | | | | | [place] | [place] [address] | | | | | [address] | [phone] | | | | | [phone] | | | +--------+--------+ + + + [...] Telephone Encounter - Megan Lundberg RN - 08/25/2019 12:22 PM PDTLast visit 02/22/19 Next visit not scheduled Last labs 02/24/19 Pended for your review Tdocumented in this encounter Plan of Treatment +--------+---------+ + + + | Date | Type | Specialty | Care Team | Description | +--------+---------+ + + + | 11/05/ | Office | Cardiology | Cristiano Stout, | | | 2019 | Visit | | MD [address] | | | | | | [place], | | | | | | [place] [address] | | | | | | [phone] | | | | | | | | +--------+---------+ + + + documented as of this encounter Visit Diagnoses Not on filedocumented in this encounter"
--- OUTSIDE RECORDS SUMMARY | ~2020-08-30 | XMS | Encounter Summary ---
Demographics + + + | Address | [address] | | | [place] [address] | + + + | Home Phone | | + + + | Preferred Language | Unknown | + + + | Marital Status | | + + + | Judaism Affiliation | 1009 | + + + [...] [place] | | | | | [address] | | + + + + + | Floyd Herndon | ECON | NA | | | | | NA, | | + + + + + Care Team Providers + +------+ + | Care Cold Patcher Name | Role | Phone | + [...] | hyperplasia) | [address] | [place], | | | | | | [place] | [place] [address] | | | | | | [place] | Phone: | | | | | | [address] | [phone] | | | | | | Phone: | Fax: | | | | | | [phone] | [phone] | | | | | | Fax: | | | | | | | [phone] | | +--------+--------+ + + + + Encounter Details +--------+---------+ + + + | Date | Type | Department | Care Team | Description | +--------+---------+ + + + | 04/11/ | Office | [facility] | Jordin Padron, | Weak urinary stream | | 2019 | Visit | [address] | MD [address] | (Primary Dx); S/P | | | | [place] | [place] | prostatectomy; | | | | [address] | [address] | Preventative health | | | | [phone] | | care | +--------+---------+ + + [...] be treated for their cancer. But [facility] providers can t always tell which cancers [...] were to have treatment Date Last Reviewed: 04/15/201719998083-4792 [employer]. [address] [place] [address], [place] [address]. All righ ts reserved. 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 He underwent a transurethral resection of bladder neck contra cture by Dr. Brumfield in mid April 2015. About 1 week later, he experienced a recurrence of gross hematuria, and Dr. Maguire perform cystoscopy with clot evacuation and fulguration of a single bleeder on 05/05/2015 at [facility]. A younger brother was treated for prostate [...] smoke. He states that he is contemplating senior living next year. He has grandchildren in [place], [place], and [place]. He is . He has 1 child. His father and brother had prostate cancer. Mother a ge 94. Father age 77 with metastatic prostate cancer. 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 I spent in excess of 30 minutes [...] PROSTATECTOMY 11/02/14 (negative)/Dr Juan Brumfield of the [facility] TONSILLECTOMY VASECTOMY Outpatient Encounter Medications as of [...] per tablet one tablet by mouth daily [place]-3 Fatty Acids (EQL FISH OIL) 1000 MG [...] Grandchildren. Exercise:None Caffeine Use:Occ. Soda Living Situation: [place] since 1996 Born in [facility] REVIEW OF SYSTEMS: [] Marked All Negative [...] care and followup with his primary care brennen calabrese. I asked Guy to notify me immediately [...] have not thoroughly proofread this note, and drilling machine runner errors are likely to occur. documented in [...] | | | | | | [place] [address] | | | | | | [phone] | | | | | | | [...] 1.001 - 1.030 | | | | [place], | | | | | | UA, [...]
--- OUTSIDE RECORDS SUMMARY | ~2020-08-30 | XMS | Encounter Summary ---
Demographics + + + | Address | [address] | | | [place] [address] | + + + | Home Phone [...] | Author | [facility] | | | and [place] | + + + | Organization | [facility] | | | and [place] | + + + | Address | Unknown | + + + | Phone | Unavailable | + + + Support + + + + + | Name | Relationship | Address | Phone | + + + + + | Yuleit Crow | ECON | [address] | | | | | [place] | | | | | [address] | | + + + + + | Floyd Herndon | ECON | NA | | | | | NA, | | + + + + + Care Team Providers + +------+ + | Care Master Fire Control Technician Name | Role | Phone | + +------+ + | Beltran Fields MD | PCP | | + +------+ + Reason for Visit +--------+--------+ + | Reason | Onset | Comments | | | Date | | +--------+--------+ + | Other | 10/23/ | PSA prior to appt | | | 2012 | | +--------+--------+ + Encounter Details +--------+ + + + + | Date | Type | Department | Care Team | Description | +--------+ + + + + | 10/23/ | Telephone | [facility] | Jordin Padron, | Other (PSA prior to | | 2012 | | [address] | MD [address] | appt) | | | | [place] | [place] | | | | | [address] | [address] | | | | | [phone] | | | +--------+ + + + [...] this encounter Miscellaneous Notes Telephone Encounter - Angela Thomas Master of Arts - 10/23/2013 10:01 AM PSTCalled parth ent and spoke to patient's spouse Yuliet; Informed her that patient needs to have PSA drawn p rior to upcoming appointment on 11/13/13; Stated orders have been faxed to [facility]; She had no further questions at this time and stated she will let patient knowElectro nically signed by Angela Thomas, Master of Arts at 10/23/2013 10:02 AM PSTdocumented in [facility] encounter Plan of Treatment +--------+---------+ + + + | Date | Type | Specialty | Care Team | Description | +--------+---------+ + + + | 11/05/ | Office | Cardiology | Cristiano Stout, | | | 2019 | Visit | | MD [address] | | | | | | [place], | | | | | | [place] [address] | | | | | | [phone] | | | | | | | | +--------+---------+ + + + documented as of this encounter Visit Diagnoses Not on filedocumented in this encounter"
--- OUTSIDE RECORDS SUMMARY | ~2020-08-30 | XMS | Encounter Summary ---
Demographics + + + | Address | [address] | | | [place] [address] | + + + | Home Phone [...] [place] | | | | | [address] | | + + + + + | Floyd Herndon | ECON | NA | | | | | NA, | | + + + + + Care Team Providers + +------+ + | Care Head Men'S Tennis Coach Name | Role | Phone | + +------+ + | Beltran Fields MD | PCP | | + +------+ + Reason for Visit + +--------+ + | Reason | Onset | Comments | | | Date | | + +--------+ + | Medication Refill | 07/26/ | | | | 2014 | | + +--------+ + Encounter Details +--------+--------+ + + + | Date | Type | Department | Care Team | Description | +--------+--------+ + + + | 07/26/ | Refill | [facility] | Beltran Fields, | Medication Refill | | 2014 | | MEDICINE [address] | [address] | | | | | [address] [place], | [address] [place], | | | | | [place] [address] | [place] [address] | | | | | [phone] | [phone] | | | | | | | [...] | | | | | | [place] [address] | | | | | | [phone] | | | | | | | | +--------+---------+ + + + documented as of this encounter Visit Diagnoses Not on filedocumented in this encounter"
--- OUTSIDE RECORDS SUMMARY | ~2020-08-30 | XMS | Clinical Summary ---
Demographics + + + | Address | [address] | | | [place] [address] | + + + | Home Phone | | + + + | Preferred Language | Unknown | + + + | Marital Status | | + + + | Voodoo Affiliation | Unknown | + + + | Race | White | + + + | Ethnic Group | Not or | + + + Author + + + | Author | [facility] | + + + | Organization | [facility] | + + + | Address | Unknown | + + + | Phone | Unavailable | + + + Support + + + + + | Name | Relationship | Address | Phone | + + + + + | Yuliet Ma | ECON | [address] | | | | | [place] | | | | | [address] | | + + + + + Care Team Providers + +------+ + | Care Truck Leasing Manager Name | Role | Phone | + +------+ + PCP | Unavailable | + +------+ + Source Comments ENA is fully live on both [facility] and [facility] Allergies Not on File Medications Not on file Active Problems Not on file Social History + +-------+ +--------+------+ | Tobacco [...] on file | | + + + Last Filed Vital Signs Not on file Plan of Treatment + + +-------+ + | Health Maintenance | Due Date | Last | Comments | | | | Done | | + + +-------+ + | Pneumococcal | | | | | vaccination (1 of 1 | 1 | | | | - PPSV23) | | | | + + +-------+ + | Influenza (Flu) | | | | | vaccination (#1) | 0 | | | + + +-------+ + Results Not on filefrom Last 3 Months Insurance + +--------+ +--------+-------+---------+--------+ | Payer | Benefi | Subscriber | Effect | Phone | Address | Type | | | t Plan | ID | steve | | | | | | / | | Dates | | | | | | Group | | | | | | + +--------+ +--------+-------+---------+--------+ | LIFE[employer] | LIFEWI | [id number] | | | | Indemn | | | SE | 3 | 013-Pr | | | ity | | | | | esent | | | | + +--------+ +--------+-------+---------+--------+ + +--------+ +--------+ + + | Guarantor Name | Accoun | Relation to | Date | Phone | Billing Address | | | t Type | Patient | of | | | | | | | | | | + +--------+ +--------+ + + | Guy Thurman P | Person | Self [birth year] | [address] | | | al/Fam | | 1945 | [phone] | [place] [address] | | | bossman | | | 4 (Home) | | | | | | | [phone] | | | | | | | 1 (Work) | | + +--------+ +--------+ + +"
--- OUTSIDE RECORDS SUMMARY | ~2020-08-30 | XMS | Encounter Summary ---
Demographics + + + | Address | [address] | | | [place] [address] | + + + | Home Phone [...] [place] | | | | | [address] | | + + + + + | Floyd Herndon | ECON | NA | | | | | NA, | | + + + + + Care Team Providers + +------+ + | Care Play Reader Name | Role | Phone | + +------+ + | Beltran Fields MD | PCP | | + +------+ + Encounter Details +--------+ + + + + | Date | Type | Department | Care Team | Description | +--------+ + + + + | 11/13/ | Hospital | [facility] | Jordin Padron, | | | 2012 | Encounter | [facility] | [address] | | | | | [address] | [place] | | | | | [place] | [address] | | | | | [address] | | | | | | [phone] | | | +--------+ + + + [...] + + + +---------+ + + | [place]-3 Fatty | two capsules by | | [...] | | | | | | [place] [address] | | | | | | [phone] | | | | | | | [...] | | [facility] | | | - LABORATORY | + + + + + + + + | Performing | Address | City/State/Zipcode | Phone Number | | Organization | | | | + + + + + | [facility] | [address] | [place], [place] | [phone] | | [facility] | | [address] | | | - LABORATORY | | | | + + + + + | [facility] | [address] | [place], [place] | | | [facility] | | [address] [place] [address] | | | - LABORATORY | | [...] + | [facility] | [address] | [place], [place] | [phone] | | [facility] | | [address] | | | - LABORATORY | | | | + + + + + | [facility] | [address] | [place], [place] | | | [facility] | | [id number] [place] [address] | | | - LABORATORY | | [...] - 1.030 | [facility] | | | [place], | | | [facility] | | [...] + + | [facility] | [address] | [place], [place] | [phone] | | [facility] | | [address] | | | - LABORATORY | | | | + + + + + | [facility] | [address] | [place], [place] | | | [facility] | | [address] | | | - LABORATORY | | | | + + + + + documented in this encounter Visit Diagnoses Not on filedocumented in this encounter"
--- OUTSIDE RECORDS SUMMARY | ~2020-08-30 | XMS | Encounter Summary ---
Demographics + + + | Address | [address] | | | [place] [address] | + + + | Home Phone [...] [place] | | | | | [address] | | + + + + + | Floyd Herndon | ECON | NA | | | | | NA, | | + + + + + Care Team Providers + +------+ + | Care Restaurant Service Manager Name | Role | Phone | [...] + + | Closed | Specialty | Surgery | Diagnoses | Diamond, | Todd De Jesus | | | Services | | Special | Beltran Nunn MD | Jl | | | Required | | screening | [address] | [address] | | | | | for | [address] | [id number] | | | | | malignant | [place] | [place] | | | | | neoplasms, | [place] | [address] | | | | | colon | [address] | Phone: | | | | | Procedures | Phone: | [phone] | | | | | 03/15 notes | [phone] | Fax: | | | | | | Fax: | [phone] | | | | | | [phone] | | +--------+ + + + + + Reason for Visit + + + | Reason | Comments | + + + | Medicare Wellness | | + + + Encounter Details +--------+---------+ + + + | Date | Type | Department | Care Team | Description | +--------+---------+ + + + | 02/08/ | Office | [facility] | Beltran Fields, | Essential | | 2018 | Visit | MEDICINE [address] | [address] | hypertension, benign | | | | [address]VE [place], | [address] [place], | (Primary Dx); | | | | [place] [address] | [place] [address] | Status post | | | | [phone] | [phone] | prostatectomy; Type | | | | | | 2 diabetes mellitus | | | | | | with hyperglycemia, | | | | | | without long-term | | | | | | current use of | | | | | | insulin (HCC); | | | | | | Paroxysmal a-fib | | | | | | (HCC); History of | | | | | | gout; Special | | | | | | screening for | | | | | | malignant neoplasms, | | | | | | colon; | | | | | | Hyperlipidemia, | | | | | | unspecified | | | | | | hyperlipidemia type; | | | | | | Chronic low back | | | | | | pain without | | | | | | sciatica, | | | | | | unspecified back | | | | | | pain laterality | +--------+---------+ + + + Social History [...] + + + | Blood Pressure | 100/70 | 02/08/2018 1:03 PM | | | | | PDT | | + + + + + | Pulse | 58 | 02/08/2018 1:03 PM | | | | | PDT | | + + + + + | Temperature | 36.5 C (97.7 F) | 02/08/2018 1:03 PM | | | | | PDT | | + + + + + | Respiratory Rate | - | - | | + + + + + | Oxygen Saturation | 95% | 02/08/2018 1:03 PM | | | | | PDT | | + + + + + | Inhaled Oxygen | - | - | | | Concentration | | | | + + + + + | Weight | 119.3 kg (263 lb 0.1 | 02/08/2018 1:03 PM | | | | oz) | PDT | | + + + + + | Height | - | - | | + + + + + | Body Mass Index | 37.74 | 02/02/2017 7:06 AM | | | | | PDT | | + + + + + documented in this encounter Progress Notes Beltran Fields MD - 02/08/2018 1:00 PM PDTFormatting of this note might be different f rom the original. Subjective: Patient ID: Guy Thurman is a 72 y.o. male. HPI JEAN, CPAP, The crackling in the ear has gone away. Hx Anemia, Iron Deficiency, There is no blood in the urine or stool. post prostatectomy. He is no longer on iron. Prostactectomy 11/02/14, Now with with most recent [...] is again unch anged. Paroxysmal Afib, He still has rare palp with overexertion There is no recent Chest pain/ . Rare episode, less than 6 episodes per year. Last several hours per episode, He is on ECASA 325mg po qd. Last echo 2007 with mild bitrial dilatation. Now on Flecainide 100mg po bid and metoprolol 50 am and 25 in the evening. per Cardiology Dr Niranjan Luevano MD in [facility]. Hyperlipidemia, on lipitor, denies muscle aches or weakness. compliant with the medication s. This is stable. DM2, diet controlled, " I think my A1C is going up" there is no diabetic symptoms other than numb feet for the last 2 years. This is noticeab le. He denies P, P P He declines medication of dietary consult, he sees an eye doctor onc e yearly. He is due for his colonscopy 03/02, Dr Liza Abreu, one allopurinol since 1975. 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 He is . 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 He lives in [place], [place]. 9 living Grandchildren. Review of Systems [...] no Depression, no anxiety,no sleep problems Objective: BP 100/70 | Pulse 58 | Temp 36.5 C (97.7 F) (Temporal) | Wt 119.3 kg (263 lb 0.1 oz) | SpO2 95% | BMI 37.74 kg/m Physical Exam Heent, WNL, No carotid bruit Chest CTAB Heart RR&R /s M Abd S,NT,ND,BS+ Ext, no CCor E Neuro Non-focal Lymph, no cervical, axillary, inguinal adenopathy Musculoskeletal, no gross deformity or loss or range of motion Skin, no gross lesions Rectal no mass, no hemorrhoids, guiac neg, control pos Prostate: absent, there is gross rectal mass that is palpable Assessment: 1. Essential hypertension, benign 2. Status post prostatectomy 3. Type 2 diabetes mellitus with hyperglycemia, without long-term current use of insulin (H CC) 4. Paroxysmal a-fib (HCC) 5. History of gout 6. Special screening for malignant neoplasms, colon Ambulatory referral to General Surgery Plan: He looks and feels at baseline. His labs are due and we will order these. Electronicall y signed by Beltran Fields MD at 02/10/2018 2:25 PM PDTdocumented in this encounter Plan of Treatment +--------+---------+ + + + | Date | Type | Specialty | Care Team | Description | +--------+---------+ + + + | 11/05/ | Office | Cardiology | Cristiano Stout, | | | 2019 | Visit | | MD [address] | | | | | | [place], | | | | | | [place] [address] | | | | | | [phone] | | | | | | | | +--------+---------+ + + + + +------+--------+ + + | Name | Type | Priori | Associated Diagnoses | Order Schedule | | | | ty | | | + +------+--------+ + + | CBC with | Lab | Routin | Essential | 1 Occurrences | | Differential | | e | hypertension, benign | starting 02/08/2018 | | | | | | until 02/08/2019 | + +------+--------+ + + | Comprehensive | Lab | Routin | Essential | 1 Occurrences | | Metabolic Panel | | e | hypertension, benign | starting 02/08/2018 | | | | | | until 02/08/2019 | + +------+--------+ + + | Lipid Panel | Lab | Routin | Hyperlipidemia, | 1 Occurrences | | | | e | unspecified | starting 02/08/2018 | | | | | hyperlipidemia type | until 02/09/2019 | + +------+--------+ + + | Urinalysis with | Lab | Routin | Essential | 1 Occurrences | | Microscopic if | | e | hypertension, benign | starting 02/08/2018 | | Indicated | | | | until 02/08/2019 | + +------+--------+ + + + + +--------+ + + | Name | Type | Priori | Associated Diagnoses | Order Schedule | | | | ty | | | + + +--------+ + + | Ambulatory referral | Outpatient | Routin | Special screening | Ordered: 02/08/2018 | | to General Surgery | Referral | e | for malignant | | | | | | neoplasms, colon | | + + +--------+ + + documented as of this encounter Procedures + +--------+ + + + | Procedure Name | Priori | Date/Time | Associated Diagnosis | Comments | | | ty | | | | + +--------+ + + + | LABS - EXTERNAL SCAN | | 03/04/2018 | | Results for this | | | | 12:00 AM | | procedure are in the | | | | PDT | | results section. | + +--------+ + + + documented in this encounter Results LABS - EXTERNAL SCAN (03/04/2018 12:00 AM PDT) + + + | Narrative | Performed At | + + + | Ordered by an | | | unspecified provider. | | + + + documented in this encounter Visit Diagnoses + + | Diagnosis | + + | Essential hypertension, benign - Primary | + + | Status post prostatectomy Other postprocedural status | + + | Type 2 diabetes mellitus with hyperglycemia, without long-term current use of insulin | | (HCC) | + + | Paroxysmal A-fib (HCC) Atrial fibrillation | + + | History of gout Personal history of other endocrine, metabolic, and immunity | | disorders | + + | Special screening for malignant neoplasms, colon | + + | Hyperlipidemia, unspecified hyperlipidemia type | + + | Chronic low back pain without sciatica, unspecified back pain laterality | + + documented in this encounter
--- OUTSIDE RECORDS SUMMARY | ~2020-08-30 | XMS | Encounter Summary ---
Demographics + + + | Address | [address] | | | [place] [address] | + + + | Home Phone | | + + + | Preferred Language | Unknown | + + + | Marital Status | | + + + | Advent Affiliation | 1009 | + + + | Race | White | + + + | Ethnic Group | Not or | + + + Author + + + | Author | [facility] | | | and [place] | + + + | Organization | [facility] | | | [...] [place] | | | | | [address] | | + + + + + | Floyd Herndon | ECON | NA | | | | | NA, | | + + + + + Care Team Providers + +------+ + | Care Support Architect Name | Role | Phone | + [...] Description | +--------+--------+ + + + | 04/25/ | Refill | [facility] | Beltran Fields, | Medication Refill; | | 2019 | | MEDICINE [facility] [address] | [address] | Medication Refill | | | | [address]VE [place], | [address] [place], | | | | | [place] [address] | [place] [address] | | | | | [phone] | [phone] | | | | | | | [...] | | | | | | [place] [address] | | | | | | [phone] | | | | | | | | +--------+---------+ + + + documented as of this encounter Visit Diagnoses Not on filedocumented in this encounter"
--- OUTSIDE RECORDS SUMMARY | ~2020-08-30 | XMS | Encounter Summary ---
Demographics + + + | Address | [address] | | | [place] [address] | + + + | Home Phone | | + + + | Preferred Language | Unknown | + + + | Marital Status | | + + + | Christianity Affiliation | 1009 | + + + | Race | White | + + + | Ethnic Group | Not or | + + + Author + + + | Author | [facility] | | | and [place] | + + + | Organization | [facility] | | [...] [place] | | | | | [address] | | + + + + + | Floyd Herndon | ECON | NA | | | | | NA, | | + + + + + Care Team Providers + +------+ + | Care Welder Apprentice Arc Name | Role | Phone | + +------+ + | Beltran Fields MD | PCP | | + +------+ + Reason for Visit + +--------+ + | Reason | Onset | Comments | | | Date | | + +--------+ + | Lab Order | 03/11/ | | | | 2014 | | + +--------+ + Encounter Details +--------+ + + + + | Date | Type | Department | Care Team | Description | +--------+ + + + + | 03/11/ | Telephone | [facility] | Beltran Fields, | Lab Order | | 2014 | | MEDICINE [address] | [address] | | | | | [address] [place], | [address] [place], | | | | | [place] [address] | [place] [address] | | | | | [phone] | [phone] | | | | | | | [...] this encounter Miscellaneous Notes Telephone Encounter - Hien Grace RN - 03/11/2015 3:39 PM PDTPatient returned call and was given message per Dr Fields regarding CBC in three months. Lab requisition to [facility] sent to front to be faxed to lab for May elephone Encounter - Hien Grace RN - 03/11/2015 9:40 AM PDTCalled and left message for patient to return call to office. Per Dr Fields, patient to have repeat CBC in three months. documented in this encounter Plan of Treatment +--------+---------+ + + + | Date | Type | Specialty | Care Team | Description | +--------+---------+ + + + | 11/05/ | Office | Cardiology | Cristiano Stout, | | | 2019 | Visit | | MD [address] | | | | | | [place], | | | | | | [place] [address] | | | | | | [phone] | | | | | | | | +--------+---------+ + + + documented as of this encounter Visit Diagnoses Not on filedocumented in this encounter"
--- OUTSIDE RECORDS SUMMARY | ~2020-08-30 | XMS | Encounter Summary ---
Demographics + + + | Address | [address] | | | [place] [address] | + + + | Home Phone | | + + + | Preferred Language | Unknown | + + + | Marital Status | | + + + | Episcopalian Affiliation | 1009 | + + + | Race | White | + + + | Ethnic Group | Not or | + + + Author + + + | Author | [facility] | | | and [place] | + + + | Organization | [facility] | | [...] [place] | | | | | [address] | | + + + + + | Floyd Herndon | ECON | NA | | | | | NA, | | + + + + + Care Team Providers + +------+ + | Care Building Service Worker Name | Role | Phone | + +------+ + | Beltran Fields MD | PCP | | + +------+ + Encounter Details +--------+---------+ + + + | Date | Type | Department | Care Team | Description | +--------+---------+ + + + | 03/24/ | [facility] | [facility] | Geronimo Iglesias PA | JEAN on CPAP (Primary | | 2012 | Visit | SLEEP DISORDER [address] | [address] | Dx) | | | | [address] [place] | [place] | | | | | [place] [address] | [address] | | | | | [phone] | | | +--------+---------+ + + + [...] + + + | Blood Pressure | 116/72 | 03/24/2013 11:05 AM | | | | | PDT | | + + + + + | Pulse | 59 | 03/24/2013 11:05 AM | | | | | PDT | | + + + + + | Temperature | - | - | | + + + + + | Respiratory Rate | 14 | 03/24/2013 11:05 AM | | | | | PDT | | + + + + + | Oxygen Saturation | - | - | | + + + + + | Inhaled Oxygen | - | - | | | Concentration | | | | + + + + + | Weight | 119.8 kg (264 lb 1.6 | 03/24/2013 11:05 AM | | | | oz) | PDT | | + + + + + | Height | - | - | | + + + + + | Body Mass Index | 37.89 | 03/24/2013 9:40 AM | | | | | PDT | | + + + + + documented in this encounter Patient Instructions Patient Instructions Paola Gallegos - 03/24/2013 11:04 AM PDT March 24, 2013 Guy Thurman [address] [place] [address] Dear Guy: Thank you for enrolling in [employer]. Please follow the instructions below to view your [employer] online medical record. [employer] allows you to send secure messages to your doctor, view you r test results, renew your prescriptions, schedule appointments, and more. How Do I Sign Up? 1. In your Internet browser, go to [email or web address] 2. Click on the "Sign up with your activation code" button in the "New User?" box. This sachin l take you to the New Member Sign Up page. 3. Enter your [employer] activation code exactly as it appears below. You will not need to use this code after you sign up. If you do not sign up before the expiration date, you must req uest a new code through your [facility] or [facility] participating clinic. [employer] Access Code: Not generated Current [employer] Status: Active 4. Fill in the last four digits of your Social Security Number (xxxx) and Date of (mm /dd/yyyy) and click Next. 5. Create a [facility] MyChart username. Your username cannot be changed, so think of one t hat is secure and easy to remember. 6. Create a [employer] password. You can change your password at any time. 7. Enter your security question and answer. This can be used at a later time if you forget your password. Click Next. 8. Enter your e-mail address. You will receive e-mail notification when new information is available in [employer]. 9. Click "Sign In". You may now view your medical record. Additional Information If you have questions, you can email [email or web address] or call [phone] to talk to our [facility] care team. Please remember, [employer] should NOT be used for urg ent needs. For all medical emergencies, call 311. Sincerely, TENNILLE Polk documented in this encounter Progress Notes Geronimo Iglesias PA - 03/24/2013 11:26 AM PDT Subjective: Patient ID: Guy Thurman is a 67 y.o. male. HPI last office visit was: 01/19/2011 date of polysomnography: 10/19/2001 AHI: 15.3 O2%: 87.8% Machine type: ResMed S9 with nasal mask obtained from: [facility] in [place], [place] pressure is: 8-16 cm 95%: 12.7 cm maxium: 13.7 cm CPAP download shows CPAP useage # nights: 365/365 Average usage (all nights): 6:53 Average usage (nights used): 6:53 AHI: 2.0 Guy comes in for CPAP compliance. He continues to wear his CPAP on a nightly basis for t he duration of the night. He does not consider sleeping without it. He is liking the ResMe d S9 because it is quieter and much easier to take when travelling. His only concern is clarence t he has had problems with congestion, fluid in his ears and with vertigo. He is wondering if this is related to the S9. He believes the problems after starting with the S9 two years ago. It is not likely that his S9 would cause either of these problems. He did not bring his CPAP with him, so we were not able to check his settings and/or make adjustments. He berg s been using flonase has been helpful with this. I have discussed the download and results of the paperwork in detail. He is unchanged or i mproved in nearly all categories, with no areas of concern. The download shows that his sle ep apnea is well controlled, with an AHI of 2.0. It also shows that his leaks are well cont rolled. Review of Systems Objective: Physical Exam Assessment: Problem # 1: OBSTRUCTIVE SLEEP APNEA (ICD-327.23) He has excellent CPAP compliance, but has had problems with congestion and fluid in his ea rs. Plan: He is to continue with CPAP indefinitely. I have recommended that he increase his humidity to possibly help reduce his congestion and the fluid in his ears. I have recommended touc coco base with [facility] in [place] twice per year to ensure that all medical suppli es are satisfactory. I will follow up again in 2 years, sooner prn. At that time we will reassess with all appr opiate paperwork. Fifteen minutes were spent qofi-ig-iwio, with the majority of time spent in counseling. Geronimo Iglesias PA-C cc: Coltno Fields MD Paola Chowdary - 2012 11:01 AM PDT 03/24/13 [address] Depression Inventory-II Depression Score 3 - Minimal depression Insomnia Severity Index Insomnia Severity Index 12 [place] Sleepiness Scale Sitting and reading 1 Watching TV 1 Sitting, inactive in a public place (e.g. a theatre or a meeting) 1 As a passenger in a car for an hour without a break 1 Lying down to rest in the afternoon when circumstances permit 1 Sitting and talking to someone 0 Sitting quietly after a lunch without alcohol 1 In a car, while stopped for a few minutes in traffic 1 Total score 7 SF-36v2 Score PF 44.41 RP 56.85 BP 32.54 GH 43.4 VT 52.09 SF 56.85 RE 55.88 MH 58.46 PCS 39.86 MCS 61.24 documented in this enc ounter Miscellaneous Notes Miscellaneous - ONBASE SCAN [facility] - 03/24/2013 12:00 AM PDT iscellaneous - ONBASE SCAN [facility] - 03/24/2013 12:00 AM PDTEle ctronically signed by Prerna Clarke at 03/28/2013 8:16 AM PDTdocumented in this encounter Plan of Treatment +--------+---------+ + + + | Date | Type | Specialty | Care Team | Description | +--------+---------+ + + + | 11/05/ | Office | Cardiology | Cristiano Stout, | | | 2019 | Visit | | [address] | | | | | | [place], | | | | | | [place] [address] | | | | | | [phone] | | | | | | | | +--------+---------+ + + + documented as of this encounter Visit Diagnoses + + | Diagnosis | + + | JEAN on CPAP - Primary Obstructive sleep apnea (adult) (pediatric) | + + documented in this encounter
--- OUTSIDE RECORDS SUMMARY | ~2020-08-30 | XMS | Encounter Summary ---
Demographics + + + | Address | [address] | | | [place] [address] | + + + | Home Phone [...] + | Author | [facility] | | | and [place] | + + + | Organization | [facility] | | | [...] [place] | | | | | [address] | | + + + + + | Floyd Herndon | ECON | NA | | | | | NA, | | + + + + + Care Team Providers + +------+ + | Care Community Relations Representative Name | Role | Phone | + +------+ + | Beltran Fields MD | PCP | | + +------+ + Reason for Visit + +--------+ + | Reason | Onset | Comments | | | Date | | + +--------+ + | Medication Refill | 12/02/ | | | | 2015 | | + +--------+ + Encounter Details +--------+--------+ + + + | Date | Type | Department | Care Team | Description | +--------+--------+ + + + | 12/02/ | Refill | [facility] [place] [facility] | Beltran Fields, | Medication Refill | | 2015 | | MEDICINE [address] | [address] | | | | | AVE [place], | [place] [address] [place], | | | | | [place] [address] | [place] [address] | | | | | [phone] | [phone] | | | | | | | [...] | | | | | | [place] [address] | | | | | | [phone] | | | | | | | | +--------+---------+ + + + documented as of this encounter Visit Diagnoses Not on filedocumented in this encounter"
--- OUTSIDE RECORDS SUMMARY | ~2020-08-30 | XMS | Encounter Summary ---
Demographics + + + | Address | [address] | | | [place] [address] | + + + | Home Phone [...] [facility] | | | and [place] | + + + | Organization | [facility] | | | and [...] [place] | | | | | [address] | | + + + + + | Floyd Herndon | ECON | NA | | | | | NA, | | + + + + + Care Team Providers + +------+ + | Care Continuous Pickling Line Pickler Helper Name | Role | Phone | + +------+ + | Beltran Fields MD | PCP | | + +------+ + Encounter Details +--------+ + + + + | Date | Type | Department | Care Team | Description | +--------+ + + + + | 07/26/ | Hospital | [facility] | Beltran Fields, | Elevated PSA; | | 2013 | Encounter | [facility] | [address] | Essential | | | | [address] [place] | [place], | hypertension, benign | | | | [place], [place] | [place] [address] | | | | | [address] | [phone] | | | | | [phone] | | | +--------+ + + + [...] + + + +---------+ + + | [place]-3 Fatty | two capsules by | | [...] in thi s encounter Plan of Treatment +--------+---------+ + + + | Date | Type | Specialty | Care Team | Description | +--------+---------+ + + + | 11/05/ | Office | Cardiology | Cristiano Stout, | | | 2019 | Visit | | MD [address] | | | | | | [place], | | | | | | [place] [address] | | | | | | [phone] | | | | | | | [...] | + +-------+ + + + | White Blood | 8.3 | 4.0 - 11.0 K/uL | [facility] | | | Cells | | | [facility] | | | | | | [facility]ICAL | | | | | | CENTER - | | | | | | LABORATORY | | + +-------+ + + + | Red Blood | 5.06 | 4.30 - 5.70 | [facility] | | | Cells | | M/uL | [facility] | | | | [...] + | [facility] | [address] | [place] | [phone] | | [facility] | | [address] | | | - LABORATORY | | | | + + + + + | [facility] | [address] | [place], [place] | | | [facility] | | [address], [facility] | | | - LABORATORY | [...] mL/min/1.73m2 | [facility] | | | Croatian | RATE,ESTIMATED | | MEDICAL | | | | mL/min/1.87r8Cpcb than | | CENTER - | | [...] + | [facility] | [address] | [place] | [phone] | | [facility] | | [address] | | | - LABORATORY | | | | + + + + + | [facility] | [address] | [place] | | | [facility] | | [address] | | | - [...] | | | | | | [facility] | | | | | | [...] + | [facility] | [address] | [place], [place] | [phone] | | [facility] | | [address] | | | - LABORATORY | | | | + + + + + | [facility] | [address] | [place], [place] | | | [facility] | | [address] [place] [address] | | | - LABORATORY | | | | + + + + + documented in this encounter Visit Diagnoses + + | Diagnosis | + + | Elevated PSA Elevated prostate specific antigen (PSA) | + + | Essential hypertension, benign | + + documented in this encounter"
--- OUTSIDE RECORDS SUMMARY | ~2020-08-30 | XMS | Encounter Summary ---
Demographics + + + | Address | [address] | | | [place] [address] | + + + | Home Phone [...] + | Author | [facility] | | | and [place] | + + + | Organization | [facility] | | | [...] [place] | | | | | [address] | | + + + + + | Floyd Herndon | ECON | NA | | | | | NA, | | + + + + + Care Team Providers + +------+ + | Care Rag Cutting Machine Tender Name | Role | Phone | [...] | 02/28/ | Refill | [facility] [place] [facility] | Beltran Fields, | Medication Refill | | 2017 | | MEDICINE [address] | MD [address] | | | | | [place], | [place] [address] [place], | | | | | [place] [address] | [place] [address] | | | | | [phone] | [phone] | | | | | | | [...] | | | | | | [place] [address] | | | | | | [phone] | | | | | | | | +--------+---------+ + + + documented as of this encounter Visit Diagnoses Not on filedocumented in this encounter"
--- OUTSIDE RECORDS SUMMARY | ~2020-08-30 | XMS | Encounter Summary ---
Demographics + + + | Address | [address] | | | [place] [address] | + + + | Home Phone | | + + + | Preferred Language | Unknown | + + + | Marital Status | | + + + | Christianity Affiliation | 1009 | + + + | Race | White | + + + | Ethnic Group | Not or | + + + Author + + + | Author | [facility] | | | and [place] | + + + | Organization | [facility] | | | and [...] [place] | | | | | [address] | | + + + + + | Floyd Herndon | ECON | NA | | | | | NA, | | + + + + + Care Team Providers + +------+ + | Care Dry Cell Assembly Supervisor Name | Role | Phone | + +------+ + | Beltran Fields MD | PCP | | + +------+ + Reason for Visit + +--------+ + | Reason | Onset | Comments | | | Date | | + +--------+ + | Medication Refill | 11/14/ | | | | 2013 | | + +--------+ + Encounter Details +--------+--------+ + + + | Date | Type | Department | Care Team | Description | +--------+--------+ + + + | 11/14/ | Refill | [facility] [place] [facility] | Beltran Fields, | Medication Refill | | 2013 | | MEDICINE [address] | [address] | | | | | AVE [place], | [place] [address] [place], | | | | | [place] [address] | [place] [address] | | | | | [phone] | [phone] | | | | | | | [...] | | | | | | [place] [address] | | | | | | [phone] | | | | | | | | +--------+---------+ + + + documented as of this encounter Visit Diagnoses Not on filedocumented in this encounter"
--- OUTSIDE RECORDS SUMMARY | ~2020-08-30 | XMS | Encounter Summary ---
Demographics + + + | Address | [address] | | | [place] [address] | + + + | Home Phone [...] + | Author | [facility] | | | and [place] | + + + | Organization | [facility] | | | and [...] [place] | | | | | [address] | | + + + + + | Floyd Herndon | ECON | NA | | | | | NA, | | + + + + + Care Team Providers + +------+ + | Care Teller Manager Name | Role | Phone | [...] Description | +--------+--------+ + + + | 08/02/ | Refill | [facility] | Beltran Fields, | Medication Refill | | 2020 | | [facility] | [address] | | | | | MEDICINE [place] | [place] [address] [place], | | | | | [address] | [place] [address] | | | | | [place] [address] [place], | [phone] | | | | | [place] [address] | | | | | | [phone] | | | +--------+--------+ + + + [...] | | | | | | [place] [address] | | | | | | [phone] | | | | | | | | +--------+---------+ + + + documented as of this encounter Visit Diagnoses + + | Diagnosis | + + | Essential hypertension, benign | + + documented in this encounter"
--- OUTSIDE RECORDS SUMMARY | ~2020-08-30 | XMS | Encounter Summary ---
Demographics + + + | Address | [address] | | | [place] [address] | + + + | Home Phone [...] | Author | [facility] | | | and [place] | + + + | Organization | [facility] | | [...] [place] | | | | | [address] | | + + + + + | Floyd Herndon | ECON | NA | | | | | NA, | | + + + + + Care Team Providers + +------+ + | Care Judicial Clerk Name | Role | Phone | + +------+ + | Beltran Fields MD | PCP | | + +------+ + Reason for Visit + +--------+ + | Reason | Onset | Comments | | | Date | | + +--------+ + | Medication Refill | 04/23/ | | | | 2013 | | + +--------+ + Encounter Details +--------+--------+ + + + | Date | Type | Department | Care Team | Description | +--------+--------+ + + + | 04/23/ | Refill | [facility] [place] [facility] | Beltran Fields, | Medication Refill | | 2013 | | MEDICINE [address] | [address] | | | | | AVE [place], | [place] [address] [place], | | | | | [place] [address] | [place] [address] | | | | | [phone] | [phone] | | | | | | | [...] | | | | | | [place] [address] | | | | | | [phone] | | | | | | | | +--------+---------+ + + + documented as of this encounter Visit Diagnoses Not on filedocumented in this encounter"
--- OUTSIDE RECORDS SUMMARY | ~2020-08-30 | XMS | Encounter Summary ---
Demographics + + + | Address | [address] | | | [place] [address] | + + + | Home Phone [...] + + + | Author | [facility] | | | and [place] | + + + | Organization | [facility] | | | [...] [place] | | | | | [address] | | + + + + + | Floyd Herndon | ECON | NA | | | | | NA, | | + + + + + Care Team Providers + +------+ + | Care Uniform Room Attendant Name | Role | Phone | + +------+ + | Keyana Bolton MD | PCP | | + +------+ + Reason for Visit +---------+--------+ + | Reason | Onset | Comments | | | Date | | +---------+--------+ + | Results | 03/28/ | | | | 2012 | | +---------+--------+ + Encounter Details +--------+ + + + + | Date | Type | Department | Care Team | Description | +--------+ + + + + | 03/28/ | Telephone | [facility] | Hien Mcdowell | Results | | 2012 | | MEDICINE [address] | [place], [place] | | | | | [place], | | | | | | [place] [address] | | | | | | [phone] | | | +--------+ + + + [...] encounter Miscellaneous Notes Telephone Encounter - Hien Mcdowell RN - 03/28/2013 5:23 PM PDTCalled patient and no tified per Dr Bolton message elephone Encounte r - Hien Mcdowell RN - 03/28/2013 5:23 PM PDTMessage copied by HIEN MCDOWELL on WedMarch 28, 2013 5833 ------ Message from: KEYANA BOLTON Created: WedMarch 28, 2013 1703 Ok for ma or nurse to notify pt that there may be slight lab abnormalities but that th ey do not require follow up prior to next recommended visit but if they would like to discus s they can rtc earlier. documented in this encounter Plan of Treatment +--------+---------+ + + + | Date | Type | Specialty | Care Team | Description | +--------+---------+ + + + | 11/05/ | Office | Cardiology | Cristiano Stout, | | | 2019 | Visit | | MD [address] | | | | | | [place], | | | | | | [place] [address] | | | | | | [phone] | | | | | | | | +--------+---------+ + + + documented as of this encounter Visit Diagnoses Not on filedocumented in this encounter"
--- OUTSIDE RECORDS SUMMARY | ~2020-08-30 | XMS | Encounter Summary ---
Demographics + + + | Address | [address] | | | [place] [address] | + + + | Home Phone [...] | Author | [facility] | | | and [place] | + + + | Organization | [facility] | | | [...] [place] | | | | | [address] | | + + + + + | Floyd Herndon | ECON | NA | | | | | NA, | | + + + + + Care Team Providers + +------+ + | Care Promotional Demonstrator Name | Role | Phone | + [...] | 12/03/ | Refill | [facility] [place] [facility] | Beltran Fields, | Medication Refill | | 2018 | | MEDICINE [address] | MD [address] | | | | | [place], | [place] [address] [place], | | | | | [place] [address] | [place] [address] | | | | | [phone] | [phone] | | | | | | | [...] | | | | | | [place] [address] | | | | | | [phone] | | | | | | | | +--------+---------+ + + + documented as of this encounter Visit Diagnoses Not on filedocumented in this encounter"
--- OUTSIDE RECORDS SUMMARY | ~2020-08-30 | XMS | Encounter Summary ---
Demographics + + + | Address | [address] | | | [place] [address] | + + + | Home Phone [...] [place] | | | | | [address] | | + + + + + | Floyd Herndon | ECON | NA | | | | | NA, | | + + + + + Care Team Providers + +------+ + | Care Dry Mop Maker Name | Role | Phone | + +------+ + PCP | Unavailable | + +------+ + Encounter Details +--------+ + + + + | Date | Type | Department | Care Team | Description | +--------+ + + + + | 08/06/ | Hospital | [facility] | | | | 1998 | Encounter | MED CTR XRAY [address] | | | | | | [place] | | | | | | [place] [address] | | | | | | [phone] | | | +--------+ + + + [...] | | | | | | [place] [address] | | | | | | [phone] | | | | | | | | +--------+---------+ + + + documented as of this encounter Visit Diagnoses Not on filedocumented in this encounter"
--- OUTSIDE RECORDS SUMMARY | ~2020-08-30 | XMS | Encounter Summary ---
Demographics + + + | Address | [address] | | | [place] [address] | + + + | Home Phone [...] + + + | Author | [facility] | | | and [place] | + + + | Organization | [facility] | | [...] [place] | | | | | [address] | | + + + + + | Floyd Herndon | ECON | NA | | | | | NA, | | + + + + + Care Team Providers + +------+ + | Care Business Department Chair Name | Role | Phone | + [...] | 11/06/ | Refill | [facility] [place] [facility] | Beltran Fields, | Medication Refill | | 2019 | | MEDICINE [place] | [address] | | | | | [address] | [place] [address] [place], | | | | | [place] | [place] [address] | | | | | [address] | [phone] | | | | | [phone] | | | +--------+--------+ + + + [...] [place], | | | | | | [place] [address] | | | | | | [phone] | | | | | | | | +--------+---------+ + + + documented as of this encounter Visit Diagnoses + + | Diagnosis | + + | Essential hypertension, benign | + + documented in this encounter"
--- OUTSIDE RECORDS SUMMARY | ~2020-08-30 | XMS | Encounter Summary ---
Demographics + + + | Address | [address] | | | [place] [address] | + + + | Home Phone [...] [place] | | | | | [address] | | + + + + + | Floyd Herndon | ECON | NA | | | | | NA, | | + + + + + Care Team Providers + +------+ + | Care Dietary Supervisor Name | Role | Phone | [...] [place] | | | | | [address] | [address] | | | | | [phone] | | | +--------+ + + + [...] [place], | | | | | | [place] [address] | | | | | | [phone] | | | | | | | [...] + + | Clarity, | Clear | Clear | [facility] | | | Urine | | | [facility] | | | | | | MEDICAL | | | | | | CENTER - | | | | | | LABORATORY | | + + + + + + | Specific | 1.005 | | [facility] | | | [place], | | | [facility] | | [...] [place] | [place] | | | [facility] | | [address] | | | - LABORATORY | | | | + + + + + documented in this encounter Visit Diagnoses Not on filedocumented in this encounter"
--- OUTSIDE RECORDS SUMMARY | ~2020-08-30 | XMS | Encounter Summary ---
Demographics + + + | Address | [address] | | | [place] [address] | + + + | Home Phone [...] [place] | | | | | [address] | | + + + + + | Floyd Herndon | ECON | NA | | | | | NA, | | + + + + + Care Team Providers + +------+ + | Care Bacteriologist Fishery Name | Role | Phone | + [...] + + | Closed | Specialty | Internal | Diagnoses | Diamond, | Danielito, | | | Services | Medicine - | Atrial | Beltran Nunn MD | Rudy | | | Required | Cardiovascula | fibrillation | [address] | MD Darinel | | | | r Disease | with rapid | [address] | | | | | ventricular | [place] | [address] | | | | | response | [place], [place] | [address] | | | | | ([facility]LY [facility]) | [address] | [place] | | | | | | Phone: | [address] Phone: | | | | | | [phone] | [phone] | | | | | | Fax: | Fax: | | | | | | [phone] | [phone] | +--------+ + + + + + Reason for Visit + + + | Reason | Comments | + + + | Follow-up | medication | + + + Encounter Details +--------+---------+ + + + | Date | Type | Department | Care Team | Description | +--------+---------+ + + + | 01/22/ | Office | [facility] | Beltran Fields, | Type 2 diabetes | | 2019 | Visit | [facility] | [address] | mellitus with | | | | [facility] | [address] [place], | hyperglycemia, | | | | [address] | [place] [address] | without long-term | | | | [address] [place] [place], | [phone] | current use of | | | | [place] [address] | | insulin (HCC) | | | | [phone] | | (Primary Dx); | | | [...] | | | | | symptoms | +--------+---------+ + + + Social History [...] encounter Progress Notes Beltran Fields MD - 01/23/2020 2:00 PM PDTFormatting of this note might be different f rom the original. Subjective: Patient ID: Guy Thurman is a 74 y.o. male. HPI Information below has been pulled from previous visit, reviewed and updated as appropriate. JEAN, on.CPAP, The crackling in the ear has gone away. He awakes fairly refreshed. No day time hypersomnolence. Hx Anemia, Iron Deficiency, There is no blood in the urine or stool. post prostatectomy. He is no longer on iron. Prostactectomy 11/02/14, He has a weak stream not changing from last year. He is co ntinuing to follow with Dr Padron once yearly. HTN has been fine, checks it daily at home. and it runs in the 110's-130's/60-70's, no mar st pain, SOB, Ankle, pretibial edema R>L unchanged for years since 1992. This is stable. Paroxysmal Afib, He still has rare palp with overexertion thre is no SOB or ankle swellin g There is no recent Chest pain. Rare episode, less than 6 episodes per year. Last sever al hours per episode, He is on ECASA 325mg po qd. Last echo 2007 with mild bitrial dilat ation. Now on Flecainide 100mg po bid and metoprolol 50 am and 25 in the evening. 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 Hyperlipidemia, on lipitor, denies muscle aches or [...] yearly JEAN on CPAP, He saw Geronimo Iglesias Last week. 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 He is . 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 He lives in [place]. 9 living Grandchildren. Patient's medications, allergies, [...] Depression, no anxiety,no sleep problems Objective: BP 120/74 | Pulse 60 | Temp 36.4 C (97.5 F) (Temporal) | Resp 16 | Ht 1.778 m (5' 1 0") | Wt 109.8 kg (242 lb) | SpO2 96% | BMI 34.72 kg/m Physical Exam Heent, WNL, No carotid bruit Chest CTAB Heart RR&R /s M Abd S,NT,ND,BS+ Ext, no CC, trace pretibial edema B Neuro Non-focal Lymph, no cervical, axillary, inguinal adenopathy Musculoskeletal, no gross deformity or loss or range of motion Skin, no gross lesions Diabetic foot exam. Essentially WNL slightly loss of hair and decreased pulses B in the DP and PT B. Assessment: 1. Type 2 diabetes mellitus with hyperglycemia, without long-term current use of insulin (H CC) metFORMIN (GLUCOPHAGE) 1000 MG tablet 2. History of gout allopurinol (ZYLOPRIM) 300 mg tablet 3. Mixed hyperlipidemia atorvaSTATin (LIPITOR) 40 mg tablet 4. Essential hypertension, benign hydroCHLOROthiazide 50 mg tablet metoprolol tartrate (LOPRESSOR) 25 mg tablet metoprolol tartrate (LOPRESSOR) 50 mg tablet 5. ATRIAL FIBRILLATION WITH RAPID VENTRICULAR RESPONSE flecainide (TAMBOCOR) 100 mg tablet Plan: Pt looks and feels at baseline with no new complaints today. Labs are due. Refer to lasha roman. documented in this encounter Plan of Treatment +--------+---------+ + + + | Date | Type | Specialty | Care Team | Description | +--------+---------+ + + + | 11/05/ | Office | Cardiology | Cristiano Stout, | | | 2019 | Visit | | [address] | | | | | | [place], | | | | | | [place] [address] | | | | | | [phone] | | | | | | | | +--------+---------+ + + + + +------+--------+ + + | Name | Type | Priori | Associated Diagnoses | Order Schedule | | | | ty | | | + +------+--------+ + + | CBC with | Lab | Routin | Essential | 1 Occurrences | | Differential | | e | hypertension, benign | starting 01/23/2020 | | | | | | until 01/22/2021 | + +------+--------+ + + | Comprehensive | Lab | Routin | Essential | 1 Occurrences | | Metabolic Panel | | e | hypertension, benign | starting 01/23/2020 | | | | | | until 01/22/2021 | + +------+--------+ + + | PSA, Diagnostic | Lab | Routin | BPH with | 1 Occurrences | | | | e | obstruction/lower | starting 01/23/2020 | | | | | urinary tract | until 01/22/2021 | | | | | symptoms | | + +------+--------+ + + | Urinalysis with | Lab | Routin | Essential | 1 Occurrences | | Microscopic if | | e | hypertension, benign | starting 01/23/2020 | | Indicated | | | | until 01/22/2021 | + +------+--------+ + + | Lipid Panel | Lab | Routin | Mixed | 1 Occurrences | | | | e | hyperlipidemia | starting 01/23/2020 | | | | | | until 01/23/2021 | + +------+--------+ + + | Hemoglobin A1C | Lab | Routin | Type 2 diabetes | 1 Occurrences | | | | e | mellitus with | starting 01/23/2020 | | | | | hyperglycemia, | until 01/22/2021 | | | | | without long-term | | | | | | current use of | | | | | | insulin (HCC) | | + +------+--------+ + + + + +--------+ + + | Name | Type | Priori | Associated Diagnoses | Order Schedule | | | | ty | | | + + +--------+ + + | Cardiology, External | Outpatient | Routin | ATRIAL | Ordered: 01/23/2020 | | - AMB Referral | Referral [...] this encounter Results LABS - EXTERNAL SCAN (02/23/2020 12:00 AM [...] (HCC) - Primary | + + | History of gout Personal history of other endocrine, metabolic, and immunity | | disorders | + + | Mixed hyperlipidemia | + + | Essential hypertension, benign | + + | ATRIAL FIBRILLATION WITH RAPID VENTRICULAR RESPONSE Atrial fibrillation | + + | BPH with obstruction/lower urinary tract symptoms Hypertrophy of prostate with | | urinary obstruction and other lower urinary tract symptoms (LUTS) | + + documented in this encounter
--- OUTSIDE RECORDS SUMMARY | ~2020-08-30 | XMS | Encounter Summary ---
Demographics + + + | Address | [address] | | | [place] [address] | + + + | Home Phone | | + + + | Preferred Language | Unknown | + + + | Marital Status | | + + + | Temple Affiliation | 1009 | + + + | Race | White | + + + | Ethnic Group | Not or | + + + Author + + + | Author | [facility] | | | and [place] | + + + | Organization | [facility] | | [...] [place] | | | | | [address] | | + + + + + | Floyd Herndon | ECON | NA | | | | | NA, | | + + + + + Care Team Providers + +------+ + | Care Incident Coordinator Name | Role | Phone | + +------+ + | Beltran Fields MD | PCP | | + +------+ + Reason for Visit + + + | Reason | Comments | + + + | Establish Care | | + + + Evaluate & Treat (Routine) + + + + + + + | Status | Reason | Specialty | Diagnoses / | Referred By | Referred To | | | | | Procedures | Contact | Contact | + + + + + + + | Authorized | Specialty | Cardiology | Diagnoses | Morasch, | Belkys, | | | Services | | Atrial | Beltran Nunn MD | Eduardo | | | Required | | fibrillation | [address] | MD Robby | | | | | with rapid | [address] | [address] | | | | | ventricular | [address] | [address] | | | | | response | [place] | [place], [place] | | | | | ([facility]) | [address] | [address] Phone: | | | | | | Phone: | [phone] | | | | | | [phone] | Fax: | | | | | | Fax: | [phone] | | | | | | [phone] | | + + + + + + + Encounter Details +--------+---------+ + + + | Date | Type | Department | Care Team | Description | +--------+---------+ + + + | 08/27/ | Office | [facility] | Pauly Stout, | Paroxysmal A-fib | | 2019 | Visit | CARDIOLOGY AIDE | MD [address]ay[address] | ([facility]) (Primary Dx); | | | | [address] | [place], | Hypomagnesemia; | | | | [address] | [place] [address] | Dyslipidemia; | | | | [place] | [phone] | Prediabetes; | | | | [address] | | Obstructive sleep | | | | [phone] | | apnea syndrome; | | | | | | Essential | | | | | | hypertension | +--------+---------+ + + + Social History [...] + | Blood Pressure | 120/80 | 08/27/2020 9:51 AM | left upper arm | | | | PDT | | + + + + + | Pulse | 57 | 08/27/2020 9:46 AM | | | | | PDT | | + + + + + | Temperature | - | - | | + + + + + | Respiratory Rate | - | - | | + + + + + | Oxygen Saturation | 95% | 08/27/2020 9:46 AM | | | | | PDT | | + + + + + | Inhaled Oxygen | - | - | | | Concentration | | | | + + + + + | Weight | 107.7 kg (237 lb 6.4 | 08/27/2020 9:46 AM | | | | oz) | PDT | | + + + + + | Height | 177.8 cm (5' 10") | 08/27/2020 9:46 AM | | | | | PDT | | + + + + + | Body Mass Index | 34.06 | 08/27/2020 9:46 AM | | | | | PDT | | + + + + + documented in this encounter Progress Notes Pauly Stout MD - 08/27/2020 9:45 AM PDTFormatting of this note might be different fro m the original. Subjective: Patient ID: Guy Thurman is a 74 y.o. male. HPI Patient's medications, allergies, past medical, surgical, social and family histories were obtained and reviewed as appropriate. 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 He had seen Ra Adan MD, several years ago for his history of paroxysmal atrial fibrillation, which started around 2007. I was able to review limited records. For many y ears, he would have 2-3 episodes per year, usually lasting only 1-2 hours. In March, he was s een in the ER at [facility] for his third episode in 2 weeks, that lasted over 2 hours, although he converted to sinus rhythm in the ER. He had 2 episodes, lasting approxi mately 1 minute each, about a month ago, so this seems to represent an increase in frequency . When he has these episodes he feels nauseated, sweaty and dizzy, but only sometimes notes palpitations with these episodes, feeling a "drop beat". He has no chest pain, dyspnea or other symptoms. His MYZ2QT0 VASc score is 3, and we discussed the indications for oral anti coagulation with this for stroke prevention. I believe that it is clearly indicated, and he agreed to start Eliquis 5 mg twice daily. His resting heart rate is in the 50s, on metopro lol 75 mg daily and flecainide 100 mg twice daily. I do not think I can increase the metopr olol dose, but flecainide usually does not significantly affect the resting heart rate, so I increased it to 150 mg twice daily. He was noted to have hypomagnesemia when he was in the ER, and it has not been rechecked, so this was ordered. I also asked him to contact the [facility] sleep clinic to have his CPAP machine records evaluated, to make sure that he is s till well controlled, which was the case on his last evaluation in January,. Stress test ing and echocardiography were deferred at present. I will see him back in a couple of month s to see how he does with these medications. ROS CONSTITUTIONAL: Moderate Obesity. 18-20 lb weight decrease, denies recent fever, chills, night sweats, significant fatigue NEUROLOGIC: No history of CVA, TIA, migraines, seizures, syncope. No dizziness, lighthead edness except with his A Fib episodes. Notes numbness in his toes, more of a "hypersensitivi ty", no other paresthesias. EYES: No amaurosis, diplopia, recent visual changes, cataracts or glaucoma ENT: No hearing loss, tinnitus, epistaxis, dysphagia ENDOCRINE: He has Pre-Diabetes mellitus, Vitamin D Deficiency. No history of thyroid disor ders or other endocrine problems. No excessive hunger, thirst. PULMONARY/SLEEP: No dyspnea, orthopnea, paroxysmal nocturnal dyspnea. No history of asthm a, emphysema. No history of pneumonia. He has JEAN, well controlled on CPAP since 2000 ([facility]) with improved snoring, has mild daytime somnolence. Sleep is usually r efreshing. CARDIOVASCULAR: Denies chest pain, pressure or discomfort. No history of CAD. No history of heart failure. He has a history of Paroxysmal Atrial Fibrillation, dating back to 2007, C HA2DS2 VASc 3, on aspirin, Flecainide and metoprolol. He only has occasional Palpitations wi th his A Fib episodes. No history of a heart murmur, rheumatic fever. He has Essential Hyp ertension, Dyslipidemia. He has mild, chronic RLE Pedal Edema since the early , follow ing a gastrocnemius tear, left forearm is larger than the right after a hematoma, no claudic ation symptoms. No h/o an AAA. -- Echo (07/09/08, per Dr. Adan's records): EF 65%, grade 1 diastolic dysfunction, bi-AE ( not quantitated), mild MR -- Myoview stress test (2007, per Dr. Adan's records): Exercised 7:45, normal SPECT perf usion -- Lipid Panel (02/24/2019): TC-119, LDL-53, HDL-25, TG-206 GASTROINTESTINAL: No recent abdominal pain, nausea, vomiting or diarrhea. Denies PUD, had coffee ground hematemesis 2013 (after his prostatectomy), no recurrence. He has GERD, a Mami atzki's ring, Gastroparesis, has had Colon Polyps removed. He denies melena, hematochezia, hepatitis. RENAL/: No history of kidney disease. No dysuria, hematuria, had a Prostatectomy for BP H 2013 (complicated by a post-op PE), denies urinary urgency, hesitancy, nocturia. HEMATOLOGY/ONCOLOGY: No h/o bleeding disorders, DVT, had a reported post-op PE 10/28 after his prostatectomy which turned out not to be true (but the CTA report is still in his recor ds). Denies easy bruisability or bleeding. He has a history of Iron Deficiency Anemia, no prior blood transfusions. No history of cancer. MUSCULOSKELETAL: No myalgias. He has a h/o Gout with no flareups for years, Osteoarthriti s with knee arthralgias, chronic low Back Pain, Sciatica. No history of rheumatologic or au toimmune diseases. CUTANEOUS: No rashes, pruritus, lesions. PSYCHIATRIC: He has a history of Depression, Anxiety, both resolved, no other psychiatric problems. Past Medical History: Diagnosis Date Anemia Iron deficiency Atrial fibrillation (HCC) Paroxysmal, [id number] VASc score 2, on ASA, Flecainide Bening Prostatic Hyperplasia Chronic low back pain/Intermittment Sciatica Colonic polyps Depression Environmental allergies Season hayfever Gastroparesis GERD (gastroesophageal reflux disease) Gout Hyperlipidemia Hypertension Obstructive sleep apnea 01/19/2011 ON CPAP Osteoarthritis 09/08/2012 Schatskis Ring Unspecified vitamin D deficiency 04/06/2011 Past Surgical History: Procedure Laterality Date APPENDECTOMY 1988 CARPAL TUNNEL RELEASE Bilateral COLONOSCOPY CYSTOSCOPY 04/26/2014 CYSTOSCOPY 05/05/2014 LAMINECTOMY L3-S1 MENISCECTOMY Left PROSTATECTOMY 11/02/14 (negative)/Dr Juan Brumfield of the [facility] TONSILLECTOMY VASECTOMY Family History Problem Relation Age of Onset Prostate cancer Father age 77 Cancer Sister Arrhythmia Brother Arrhythmia Sister Heart surgery Sister Social History Socioeconomic History Marital status: Spouse name: Yuliet Number of children: 1 Years of education: Not on file Highest education level: Not on file Occupational History 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 Employer: [employer] Social Needs Financial resource strain: Not on file Food insecurity Worry: Not on file Inability: Not on file Transportation needs Medical: Not on file Non-medical: Not on file Tobacco Use Smoking status: Never Smoker Smokeless tobacco: Never Used Substance and Sexual Activity Alcohol use: Yes Comment: Rare Drug use: No Sexual activity: Not on file Lifestyle Physical activity Days per week: Not on file Minutes per session: Not on file Stress: Not on file Relationships Social connections Talks on phone: Not on file Gets together: Not on file Attends rastafarian service: Not on file Active member of club or organization: Not on file Attends meetings of clubs or organizations: Not on file Relationship status: Not on file Intimate partner violence Fear of current or ex partner: Not on file Emotionally abused: Not on file Physically abused: Not on file Forced sexual activity: Not on file Other Topics Concern Not on file Social History Narrative Children:He has 1 child and 3 stepchildren, 9 living Grandchildren. Exercise:None Caffeine Use:Occ. Soda Living Situation: [place] since [facility] Born in [facility] Allergies Allergen Reactions Diltiazem Rash Diltiazem Hcl Rash Intolerance No active intolerances/contraindications Current Outpatient Medications Medication Sig Dispense Refill allopurinol (ZYLOPRIM) 300 mg tablet TAKE ONE TABLET BY MOUTH EVERY DAY 90 tablet 0 atorvaSTATin (LIPITOR) 40 mg tablet TAKE ONE TABLET BY MOUTH EVERY DAY 90 tablet 0 flecainide (TAMBOCOR) 100 mg tablet TAKE ONE TABLET BY MOUTH TWICE DAILY . 180 tablet 0 fluticasone (FLONASE) 50 mcg/nasal spray INSTILL 2 SPRAYS IN EACH NOSTRIL EVERY DAY. 16 g 2 hydroCHLOROthiazide 50 mg tablet TAKE ONE TABLET BY MOUTH EVERY DAY 90 tablet 1 HYDROcodone-acetaminophen (NORCO) 5-325 mg per tablet Take 1 tablet by mouth every 6 ho urs as needed for Pain. 30 tablet 0 Magnesium 400 MG TABS Take by mouth. metFORMIN (GLUCOPHAGE) 1000 MG tablet One po bid 180 tablet 1 metoprolol tartrate (LOPRESSOR) 25 mg tablet One po qd 90 tablet 1 metoprolol tartrate (LOPRESSOR) 50 mg tablet TAKE ONE TABLET BY MOUTH EVERY MORNING 90 tablet 0 multivitamin (THERAGRAN) per tablet one tablet by mouth daily [place]-3 Fatty Acids (EQL FISH OIL) 1000 MG CAPS two capsules by mouth daily Omeprazole Magnesium (PRILOSEC OTC PO) TBEC one tablet by mouth daily potassium chloride (KLOR-CON M20) 20 mEq ER tablet TAKE ONE TABLET BY MOUTH EVERY DAY 90 tablet 0 UNCODED MEDICATION Diagnosis: Obstructive Sleep Apnea ICD-9: 327.23 Length of Need: 99 Months 1 Device 0 No current facility-administered medications for this visit. Objective: BP 120/80 Comment: left upper arm | Pulse 57 | Ht 1.778 m (5' 10") | Wt 107.7 kg (237 lb 6.4 oz) | SpO2 95% | BMI 34.06 kg/m BP 118/80 right arm PHYSICAL EXAM GENERAL: Well developed, well nourished, in no distress. Appears approximately stated age . HEENT: Normocephalic, atraumatic. EYES: PERRL, sclerae anicteric, no xanthelsasmas MOUTH: Oral mucosae moist, dentition adequate, no lesions noted NECK: No JVD, lymphadenopathy, thyromegaly, bruits. Carotid pulses are 2+ bilaterally LUNGS: Clear bilaterally, with no rales, rhonchi or wheezing noted, respirations unlabored HEART: Nondisplaced PMI, regular rate and rhythm, S1, S2 normal. No murmurs, rubs or gall ops noted. ABDOMEN: Soft, nontender, no organomegaly, masses or bruits. Bowel sounds are normal in a ll 4 quadrants. The abdominal aortic pulsation is not palpable. EXTREMITIES: No edema. Radial pulses 2+ bilaterally. Femoral pulses are 2+ bilaterally wi thout bruits. DP and PT pulses are 2+ bilaterally. SKIN: Warm and dry, capillary refill is normal, no lesions. NEUROLOGIC: Awake, alert and oriented x 3. No focal motor deficits. PSYCHIATRIC: Appropriate, affect appears normal EKG (personally reviewed today: Sinus bradycardia, rate 56, indeterminate axis, incomplete right bundle branch block, diffuse nonspecific T wave abnormalities, rhythm has changed from atrial fibrillation,. To a previous tracing 03/26/2020 Assessment: Guy was seen today for establish care. Diagnoses and all orders for this visit: Paroxysmal A-fib (HCC) - ECG 12 lead Hypomagnesemia Dyslipidemia Prediabetes Obstructive sleep apnea syndrome Essential hypertension Other orders - apixaban (ELIQUIS) 5 mg tablet; Take 1 tablet by mouth 2 times daily. - flecainide (TAMBOCOR) 150 MG tablet; Take 1 tablet by mouth 2 times daily. Plan: Follow up in 2 months documented in this encounter Plan of Treatment +--------+---------+ + + + | Date | Type | Specialty | Care Team | Description | +--------+---------+ + + + | 11/05/ | Office | Cardiology | Pauly Stout, | | | 2019 | Visit | | MD [address] | | | | | | [place], | | | | | | [place] [address] | | | | | | [phone] | | | | | | | | +--------+---------+ + + + documented as of this encounter Procedures + +--------+ + + + | Procedure Name | Priori | Date/Time | Associated Diagnosis | Comments | | | ty | | | | + +--------+ + + + | ECG 12 LEAD | Routin | 08/27/2020 | Paroxysmal A-fib | Results for this | | | e | 9:52 AM | (HCC) | procedure are in the | | | | PDT | | results section. | + +--------+ + + + documented in this encounter Results ECG 12 lead (08/27/2020 9:52 AM PDT) + + + + + + | Component | Value | Ref Range | Performed | Pathologist | | | | | At | Signature | + + + + + + | VENTRICULAR | 56 | BPM | [facility] | | | RATE EKG | | | | | + + + + + + | ATRIAL RATE | 56 | BPM | [facility] | | + + + + + + | P-R | 192 | ms | [facility] | | | INTERVAL | | | | | + + + + + + | QRS | 110 | ms | [facility] | | | DURATION | | | | | + + + + + + | Q-T | 430 | ms | [facility] | | | INTERVAL | | | | | + + + + + + | Q-T | 414 | ms | [facility] | | | INTERVAL | | | | | | (CORRECTED) | | | | | + + + + + + | P WAVE AXIS | 30 | degrees | [facility] | | + + + + + + | QRS AXIS | -105 | degrees | [facility] | | + + + + + + | T AXIS | 116 | degrees | [facility] | | + + + + + + | INTERPRETAT | Sinus bradycardiaRight | | [facility] | | | ION TEXT | superior axis | | | | | | deviationPulmonary | | | | | | disease | | | | | | patternIncomplete right | | | | | | bundle branch | | | | | | blockNonspecific T wave | | | | | | abnormalityAbnormal | | | | | | ECGWhen compared with | | | | | | ECG of 09-NOV-2014 | | | | | | 03:40,Incomplete right | | | | | | bundle branch block is | | | | | | now PresentConfirmed by | | | | | | PAULY STOUT MD ([id number]) | | | | | | on 08/28/2020 9:32:19 AM | | | | | | | | | | + + + + + + + + | Specimen | + + | | + + + + + | Narrative | Performed At | + + + | | | + + + + +---------+ + + | Performing | Address | City/State/Zipcode | Phone Number | | Organization | | | | + +---------+ + + | [facility] | | | | + +---------+ + + documented in this encounter Visit Diagnoses + + | Diagnosis | + + | Paroxysmal A-fib (HCC) - Primary Atrial fibrillation | + + | Hypomagnesemia Disorders of magnesium metabolism | + + | Dyslipidemia Other and unspecified hyperlipidemia | + + | Prediabetes Other abnormal glucose | + + | Obstructive sleep apnea syndrome Obstructive sleep apnea (adult) (pediatric) | + + | Essential hypertension Unspecified essential hypertension | + + documented in this encounter
--- OUTSIDE RECORDS SUMMARY | ~2020-08-30 | XMS | Encounter Summary ---
Demographics + + + | Address | [address] | | | [place] [address] | + + + | Home Phone [...] [facility] | | | and [place] | + + + | Organization | [facility] | | | and [...] [place] | | | | | [address] | | + + + + + | Floyd Herndon | ECON | NA | | | | | NA, | | + + + + + Care Team Providers + +------+ + | Care Tread Builder Name | Role | Phone | + +------+ + | Beltran Fields MD | PCP | | + +------+ + Reason for Visit + +--------+ + | Reason | Onset | Comments | | | Date | | + +--------+ + | Appointment | 10/15/ | SCHEDULE APPT | | | 2015 | | + +--------+ + Encounter Details +--------+ + + + + | Date | Type | Department | Care Team | Description | +--------+ + + + + | 10/15/ | Telephone | [facility] | Jordin Vo, | Appointment | | 2015 | | [address] | MD [address] | (SCHEDULE APPT) | | | | [place] | [place] | | | | | [address] | [address] | | | | | [phone] | | | +--------+ + + + [...] this encounter Miscellaneous Notes Telephone Encounter - Kiley Bowens - 10/26/2016 1:16 PM PSTWAITING FOR PATIENT TO CALL BACK TO SCHEDULE 1 YEAR FOLLOW UP. CLOSING ENCOUNTER. elephone Encounter - Kiley Bowens - 9:42 AM PSTCALLED PATIENT TO SCHEDULE APPT FOR 1 YEAR FOLLOW UP BUT PATIENT NEEDS TO CHEC K HIS SCHEDULE TO FIND GOOD TIME. WILL CALL BACK ONCE ABLE TO CHECK HIS CALENDER. INFORMED P ATIENT DR. VO IS BOOKED OUT UNTIL ABOUT JANUARY OF 2017 FOR FOLLOW UPS AND DR GAGNON AVAIL IN DEC. elephone En counter - Kiley Bowens - 10/15/2016 9:42 AM PST----- Message from Farrah Sears RN sent at 12/16/2015 9:01 PST ----- Regarding: GILDA/1 yr f/u with UA, PVR, PSA DUE ~12/10/16 Please call and schedule one year follow-up visit with a PVR, UA, and PSA. DUE ~12/10/16Elec tronically signed by Kiley Bowens at 10/15/2016 9:42 AM PSTdocumented in this encoun ter Plan of Treatment +--------+---------+ + + + | Date | Type | Specialty | Care Team | Description | +--------+---------+ + + + | 11/05/ | Office | Cardiology | Cristiano Stout, | | | 2019 | Visit | | MD [address] | | | | | | [place], | | | | | | [place] [address] | | | | | | [phone] | | | | | | | | +--------+---------+ + + + documented as of this encounter Visit Diagnoses Not on filedocumented in this encounter"
--- OUTSIDE RECORDS SUMMARY | ~2020-08-30 | XMS | Encounter Summary ---
Demographics + + + | Address | [address] | | | [place] [address] | + + + | Home Phone [...] + | Author | [facility] | | | and [place] | + + + | Organization | [facility] | | | [...] [place] | | | | | [address] | | + + + + + | Floyd Herndon | ECON | NA | | | | | NA, | | + + + + + Care Team Providers + +------+ + | Care Business Loan Processor Name | Role | Phone | + +------+ + PCP | Unavailable | + +------+ + Encounter Details +--------+ + + + + | Date | Type | Department | Care Team | Description | +--------+ + + + + | 01/18/ | Hospital | [facility] | | | | 2006 | Encounter | [facility] | | | | | | [address] | | | | | | [place] | | | | | | [address] | | | | | | [phone] | | | +--------+ + + + [...] | | | | | | [place] | | | | | | [place] [address] | | | | | | [phone] | | | | | | | | +--------+---------+ + + + documented as of this encounter Visit Diagnoses Not on filedocumented in this encounter"
--- OUTSIDE RECORDS SUMMARY | ~2020-08-30 | XMS | Encounter Summary ---
Demographics + + + | Address | [address] | | | [place] [address] | + + + | Home Phone [...] [place] | | | | | [address] | | + + + + + | Floyd Herndon | ECON | NA | | | | | NA, | | + + + + + Care Team Providers + +------+ + | Care Fish Straightener Name | Role | Phone | + [...] | specific antigen | | | | [place] | [place] | (PSA) (Primary Dx) | | | | [address] | [address] | | | | | [phone] | | | +--------+ + + + [...] | | | | | | [place] [address] | | | | | | [phone] | | | | | | | [...]
--- OUTSIDE RECORDS SUMMARY | ~2020-08-30 | XMS | Encounter Summary ---
Demographics + + + | Address | [address] | | | [place] [address] | + + + | Home Phone [...] + + + | Author | [facility] | | | and [place] | + + + | Organization | [facility] | | | and [...] [place] | | | | | [address] | | + + + + + | Floyd Herndon | ECON | NA | | | | | NA, | | + + + + + Care Team Providers + +------+ + | Care Braille Teacher Name | Role | Phone | + +------+ + | Beltran Bolton MD | PCP | | + +------+ + Reason for Referral Evaluate & Treat (Routine) +--------+ + + + + + | Status | Reason | Specialty | Diagnoses / | Referred By | Referred To | | | | | Procedures | Contact | Contact | +--------+ + + + + + | Closed | Specialty | Orthopedic | Diagnoses | Diamond, | Alvaro, | | | Services | Surgery | | Beltran Nunn MD | Sridhar Engel MD | | | Required | | Osteoarthrit | [address] | [address] | | | | | is | [address] [place] [address] [place] | | | | | | [place] | [place] | | | | | | [place] | [address] Phone: | | | | | | [address] | [phone] | | | | | | Phone: | Fax: | | | | | | [phone] | [phone] | | | | | | Fax: | | | | | | | [phone] | | +--------+ + + + + + Reason for Visit + + + | Reason | Comments | + + + | Knee Pain | Left | + + + Encounter Details +--------+---------+ + + + | Date | Type | Department | Care Team | Description | +--------+---------+ + + + | 03/24/ | Office | [facility] | Beltran Bolton, | Hyperlipidemia | | 2013 | Visit | MEDICINE [place] | [address] | (Primary Dx); IGT | | | | [address] | [place] [address] [place], | (impaired glucose | | | | [place] | [place] [address] | tolerance); | | | | [address] | [phone] | Paroxysmal a-fib | | | | [phone] | | (HCC); | | | | | | Osteoarthritis | +--------+---------+ + + + Social History [...] + + + | Blood Pressure | 98/68 | 03/24/2013 9:40 AM | | | | | PDT | | + + + + + | Pulse | 60 | 03/24/2013 9:40 AM | | | | | PDT | | + + + + + | Temperature | 36.8 C (98.2 F) | 03/24/2013 9:40 AM | | | | | PDT | | + + + + + | Respiratory Rate | 16 | 03/24/2013 9:40 AM | | | | | PDT | | + + + + + | Oxygen Saturation | 95% | 03/24/2013 9:40 AM | | | | | PDT | | + + + + + | Inhaled Oxygen | - | - | | | Concentration | | | | + + + + + | Weight | 125.2 kg (276 lb) | 03/24/2013 9:40 AM | | | | | PDT | | + + + + + | Height | 177.8 cm (5' 10") | 03/24/2013 9:40 AM | | | | | PDT | | + + + + + | Body Mass Index | 39.6 | 03/24/2013 9:40 AM | | | | | PDT | | + + + + + documented in this encounter Progress Notes Beltran Bolton MD - 03/24/2013 9:54 AM PDTFormatting of this note might be different f rom the original. Subjective: Patient ID: Guy Thurman is a 67 y.o. male. HPI BPH, recent bx with [...] for years. This is unchanged. Paroxysmal Afib, He will have an occasional palp with overexertion. Rare episode, less th an 6 episodes per year. Last several hours per episode, He wants to see Dr Ferro, He is on ECASA 325mg po qd. Last echo 2007 with mild bitrial dilatation. Hyperlipidemia, on niacin and zocor, denies muscle aches or weakness. compliant with the m edications. This is unchanged. B knee pain, Left knee very painful climbing stairs, It hurts at night in bed. It is sti ll slightly swollen. Denies any clicking locking giving out or swelling. He does all righ t walking. He would be able to cycle if he wanted to. ED, viagra gives him headaches, He would like to try cialis. Past Medical History: Reviewed history from 09/19/2010 [...] child and 3 stepchildren. He lives in [place]. 9 living Grandchildren. Review of Systems [...] difficulty urinating. No Bloody urine Musculoskeletal: Neg or myalgias, no back pain, no joint swelling and No art hralgias. Some joint pain Skin: Neg for color change,no [...] /s M Abd S,NT,ND,BS+ Ext, no CCor E, Neuro Non-focal Lymph, no cervical, axillary, inguinal adenopathy Musculoskeletal, no gross deformity or loss or range of motion, There is some crepitus, M ild swelling. Mild ligamentous laxity. Skin, no gross lesions Assessment: 1. Hyperlipidemia simvastatin (ZOCOR) 40 mg tablet 2. IGT (impaired glucose tolerance) 3. Paroxysmal a-fib 4. Osteoarthritis Plan: HBA1C, refer to Dr John. RTC 6 months with labs prior. documented in this encounter Miscellaneous Notes Addendum Note - Beltran Bolton MD - 03/24/2013 11:37 AM PDT Addended by: ABDI BOLTON on: 03/24/2013 11:37 Modules accepted: Orders documented in thi s encounter Plan of Treatment +--------+---------+ + + + | Date | Type | Specialty | Care Team | Description | +--------+---------+ + + + | 11/05/ | Office | Cardiology | Cristiano Stout, | | | 2019 | Visit | | [address] | | | | | | [place], | | | | | | [place] [address] | | | | | | [phone] | | | | | | | | +--------+---------+ + + + + + +--------+ + + | Name | Type | Priori | Associated Diagnoses | Order Schedule | | | | ty | | | + + +--------+ + + | Ambulatory referral | Outpatient | Routin | Osteoarthritis | 1 Occurrences | | to Orthopedic | Referral | e | | starting 03/24/2013 | | Surgery | | | | until 03/24/2014 | + + +--------+ + + documented as of this encounter Results Hemoglobin A1C (03/24/2013 10:33 AM PDT) + + + + + + | Component | Value | Ref Range | Performed | Pathologist | | | | | At | Signature | + + + + + + | Hemoglobin | 6.4 (H)Comment: | 4.3 - 5.8 % | [facility] | | | A1c | DIABETIC PATIENT RANGES: | | [facility] | | | | 6.2-7.0% = Well [...] + | [facility] | [address] | [place], [place] | [phone] | | [facility] | | [address] | | | - LABORATORY | | | | + + + + + | [facility] | [address] | [place], [place] | | | [facility] | | [address] [place] [address] | | | - LABORATORY | | | | + + + + + documented in this encounter Visit Diagnoses + + | Diagnosis | + + | Hyperlipidemia - Primary Other and unspecified hyperlipidemia | + + | IGT (impaired glucose tolerance) Impaired glucose tolerance test | + + | Paroxysmal A-fib (HCC) Atrial fibrillation | + + | Osteoarthritis Osteoarthrosis, unspecified whether generalized or localized, | | unspecified site | + + documented in this encounter
--- OUTSIDE RECORDS SUMMARY | ~2020-08-30 | XMS | Encounter Summary ---
Demographics + + + | Address | [address] | | | [place] [address] | + + + | Home Phone [...] | Author | [facility] | | | and [place] | + + + | Organization | [facility] | | [...] [place] | | | | | [address] | | + + + + + | Floyd Herndon | ECON | NA | | | | | NA, | | + + + + + Care Team Providers + +------+ + | Care Wireline Field Operator Name | Role | Phone | + +------+ + | Beltran Fields MD | PCP | | + +------+ + Reason for Visit +--------+--------+ + | Reason | Onset | Comments | | | Date | | +--------+--------+ + | Other | 09/06/ | | | | 2013 | | +--------+--------+ + Encounter Details +--------+ + + + + | Date | Type | Department | Care Team | Description | +--------+ + + + + | 09/06/ | Telephone | [facility] | Jordin Padron, | Other | | 2013 | | [address] | MD [address] | | | | | [place] | [place] | | | | | [address] | [address] | | | | | [phone] | | | +--------+ + + + [...] this encounter Miscellaneous Notes Telephone Encounter - Claribel Trinidad RN - 09/06/2014 1:05 PM PDTRECORDS FAXED TO DR Anibal KMIBLE AND REFERRAL AUTHORIZATION ENTERED.Electronically signed by Claribel Trinidad RN at 1 1:05 PM PDTTelephone Encounter - Nano Ordonez CMA - 09/06/2014 10:32 AM PDTRo cherelle called wanting to let Dr. Padron's nurse Joselyn know that he spoke with his about wh ere he was going the have the procedure done and he made a decision on having the Prostatect sidra in [place] with Dr. Brumfield and wanted to make an appt. I referred to note 09/04/14 and t old patient that records will need to be sent to Dr. Brumfield's office and once they received and review records they will call him within a week to schedule an appointment. I let patien t know that if he has not heard from them in a week to give Dr. Brumfield's office a call. Ant best verbalized understanding. Told him that I will relay message to our nurse. Assured patient that if we have any questions that we will give him a call. documented in this encounter Plan of Treatment +--------+---------+ + + + | Date | Type | Specialty | Care Team | Description | +--------+---------+ + + + | 11/05/ | Office | Cardiology | Cristiano Stout, | | | 2019 | Visit | | [address] | | | | | | [place], | | | | | | [place] [address] | | | | | | [phone] | | | | | | | | +--------+---------+ + + + documented as of this encounter Visit Diagnoses Not on filedocumented in this encounter"
--- OUTSIDE RECORDS SUMMARY | ~2020-08-30 | XMS | Encounter Summary ---
Demographics + + + | Address | [address] | | | [place] [address] | + + + | Home Phone [...] | Author | [facility] | [...] [place] | | | | | [address] | | + + + + + | Floyd Herndon | ECON | NA | | | | | NA, | | + + + + + Care Team Providers + +------+ + | Care Machine Shop Apprentice Name | Role | Phone | + +------+ + | Beltran Fields MD | PCP | | + +------+ + Reason for Visit +--------+--------+ + | Reason | Onset | Comments | | | Date | | +--------+--------+ + | Other | 12/10/ | Iron Supplement | | | 2015 | | +--------+--------+ + Encounter Details +--------+ + + + + | Date | Type | Department | Care Team | Description | +--------+ + + + + | 12/10/ | Telephone | [facility] | Beltran Fields, | Other (Iron | | 2015 | | MEDICINE [address] | [address] | Supplement) | | | | [address] [place], | [place] [address] [place], | | | | | [place] [address] | [place] [address] | | | | | [phone] | [phone] | | | | | | | [...] this encounter Miscellaneous Notes Telephone Encounter - Frieda Allen RN - 12/10/2015 9:22 AM PSTCalled tori lopez appointment 01/07/16. documented in this encounter Plan of Treatment +--------+---------+ + + + | Date | Type | Specialty | Care Team | Description | +--------+---------+ + + + | 11/05/ | Office | Cardiology | Cristiano Stout, | | | 2019 | Visit | | MD [address] | | | | | | [place], | | | | | | [place] [address] | | | | | | [phone] | | | | | | | | +--------+---------+ + + + documented as of this encounter Visit Diagnoses Not on filedocumented in this encounter"
--- OUTSIDE RECORDS SUMMARY | ~2020-08-30 | XMS | Encounter Summary ---
Demographics + + + | Address | [address] | | | [place] [address] | + + + | Home Phone [...] + + | Author | [facility] | | | and [place] | + + + | Organization | [facility] | | | [...] [place] | | | | | [address] | | + + + + + | Floyd Herndon | ECON | NA | | | | | NA, | | + + + + + Care Team Providers + +------+ + | Care Supervisor Lump Room Name | Role | Phone | + [...] Description | +--------+--------+ + + + | 12/24/ | Refill | [facility] [place] [facility] | Beltran Fields, | Medication Refill | | 2019 | | MEDICINE [address] | MD [address] | | | | | [place], | [place] [address] [place], | | | | | [place] [address] | [place] [address] | | | | | [phone] | [phone] | | | | | | | [...] | | | | | | [place] [address] | | | | | | [phone] | | | | | | | | +--------+---------+ + + + documented as of this encounter Visit Diagnoses Not on filedocumented in this encounter"
--- OUTSIDE RECORDS SUMMARY | ~2020-08-30 | XMS | Encounter Summary ---
Demographics + + + | Address | [address] | | | [place] [address] | + + + | Home Phone [...] + + + | Author | [facility] | | | and [place] | + + + | Organization | [facility] | | | and [...] [place] | | | | | [address] | | + + + + + | Floyd Herndon | ECON | NA | | | | | NA, | | + + + + + Care Team Providers + +------+ + | Care Warp Splitter Name | Role | Phone | + +------+ + | Beltran Fields MD | PCP | | + +------+ + Reason for Visit + + + | Reason | Comments | + + + | Medication | Questions regarding medications | | Management | | + + + | Benign Prostatic | Prostatectomy 11/02/14, benign, | | Hypertrophy | | + + + Encounter Details +--------+---------+ + + + | Date | Type | Department | Care Team | Description | +--------+---------+ + + + | 11/22/ | Office | [facility] [place] [facility] | Beltran Fields, | Paroxysmal a-fib | | 2015 | Visit | MEDICINE [address] | [address] | (Primary Dx); | | | | [place]VE [place], | [place] [address] [place], | Essential | | | | [place] [address] | [place] [address] | hypertension, | | | | [phone] | [phone] | benign; | | | | | | Hyperlipidemia; | | | | | | Status post | | | | | | prostatectomy; ED | | | | | | (erectile | | | | | | [...] + + + | Blood Pressure | 130/74 | 11/22/2014 3:52 PM | | | | | PST | | + + + + + | Pulse | 74 | 11/22/2014 3:52 PM | | | | | PST | | + + + + + | Temperature | 37.1 C (98.8 F) | 11/22/2014 3:52 PM | | | | | PST | | + + + + + | Respiratory Rate | 16 | 11/22/2014 3:52 PM | | | | | PST | | + + + + + | Oxygen Saturation | 97% | 11/22/2014 3:52 PM | | | | | PST | | + + + + + | Inhaled Oxygen | - | - | | | Concentration | | | | + + + + + | Weight | 112.1 kg (247 lb 1.6 | 11/22/2014 3:52 PM | | | | oz) | PST | | + + + + + | Height | 177.8 cm (5' 10") | 11/22/2014 3:52 PM | | | | | PST | | + + + + + | Body Mass Index | 35.46 | 11/22/2014 3:52 PM | | | | | PST | | + + + + + documented in this encounter Progress Notes Beltran Fields MD - 11/22/2014 4:21 PM PSTFormatting of this note might be different f rom the original. Subjective: Patient ID: Guy Thurman is a 69 y.o. male. HPI Recent prostatectoomy, Post op catheter was not working correctly and two facilities faile d to check this. He was also worked up with a CT angiogram and was diagnosed with a PE. Bu t he got a second opinion and did not have a PE. He is not having chest pain. No longer SO B. Post op anemia was improved. Recent prostatectomy, BPH, Elevated PSA, Removed at [facility]. The surgery went otherwise fine. Performed by Dr Yohan Brumfield. Followed locally by Dr Padron. HTN has been fine, checks it daily at home. and it runs in the 120's-130's/70-80's, no mar st pain, SOB, Ankle, pretibial edema R>L unchanged for years. This is unchanged. He is on HCTZ for this. Paroxysmal Afib, No recent palpitations. He will have an occasional palp with overexert ion. When he wakes up on occasion in the morning he feels like he is buzzing like atrial fl utter and occasionally before sleep, Rare episode, less than 6 episodes per year. Last sev eral hours per episode, He is on ECASA 325mg po qd. Last echo 2007 with mild bitrial dil atation. Now on Flecainide per Cardiology Dr Niranjan Luevano MD in [place]. He underwent a st ressecho test this january that was normal. Hyperlipidemia, on niacin and zocor, denies muscle aches or weakness. compliant with the m edications. This is unchanged. Past Medical History: Reviewed history from 09/19/2010 [...] child and 3 stepchildren. He lives in [place], [place]. 9 living Grandchildren. Review of Systems [...] no joint swelling and No ar thralgias. Some joint pain Skin: Neg for color [...] CTAB Heart RR&R /s M Abd S,NT,ND,BS+, well healed surgical incision. Ext, no CCor E Neuro Non-focal Lymph, no cervical, axillary, inguinal adenopathy Musculoskeletal, no gross deformity or loss or range of motion Skin, no gross lesions Assessment: 1. Paroxysmal a-fib 2. Essential hypertension, benign 3. Hyperlipidemia 4. Status post prostatectomy Plan: I would like to switch him to lipitor. He looks and feels otherwise fine. Otherwise deja nue current medical regimen. Repeat FLP and CMP and CBC in three months. documented in this [...] | | | | | | [place] [address] | | | | | | [phone] | | | | | | | | +--------+---------+ + + + documented as of this encounter Visit Diagnoses + + | Diagnosis | + + | Paroxysmal a-fib - Primary Atrial fibrillation | + + | Essential hypertension, benign | + + | Hyperlipidemia Other and unspecified hyperlipidemia | + + | Status post prostatectomy Other postprocedural status | + + | ED (erectile dysfunction) Impotence of organic origin | + + documented in this encounter
--- OUTSIDE RECORDS SUMMARY | ~2020-08-30 | XMS | Encounter Summary ---
Demographics + + + | Address | [address] | | | [place] [address] | + + + | Home Phone | | + + + | Preferred Language | Unknown | + + + | Marital Status | | + + + | Presybeterian Affiliation | 1009 | + + + | Race | White | + + + | Ethnic Group | Not or | + + + Author + + + | Author | [facility] | | | and [place] | + + + | Organization | [facility] | | | and [...] [place] | | | | | [address] | | + + + + + | Floyd Herndon | ECON | NA | | | | | NA, | | + + + + + Care Team Providers + +------+ + | Care Auto Clutch Specialist Name | Role | Phone | [...] | 10/29/ | Refill | [facility] [place] [facility] | Beltran Fields, | Medication Refill | | 2017 | | MEDICINE [address] | MD [address] | | | | | [address] [place], | [place] [address] [place], | | | | | [place] [address] | [place] [address] | | | | | [phone] | [phone] | | | | | | | [...] | | | | | | [place] [address] | | | | | | [phone] | | | | | | | | +--------+---------+ + + + documented as of this encounter Visit Diagnoses Not on filedocumented in this encounter"
--- OUTSIDE RECORDS SUMMARY | ~2020-08-30 | XMS | Encounter Summary ---
Demographics + + + | Address | [address] | | | [place] [address] | + + + | Home Phone [...] | [facility] | | | and [place] | + + + | Organization | [facility] | | | [...] [place] | | | | | [address] | | + + + + + | Floyd Herndon | ECON | NA | | | | | NA, | | + + + + + Care Team Providers + +------+ + | Care Vocational Rehab Consultant Name | Role | Phone | + +------+ + | Beltran Fields MD | PCP | | + +------+ + Reason for Visit + +--------+ + | Reason | Onset | Comments | | | Date | | + +--------+ + | Medication Refill | 03/24/ | | | | 2012 | | + +--------+ + Encounter Details +--------+--------+ + + + | Date | Type | Department | Care Team | Description | +--------+--------+ + + + | 03/24/ | Refill | [facility] [place] [facility] | Beltran Fields, | Medication Refill | | 2012 | | MEDICINE [address] | [address] | | | | | [address] [place], | [address] [place], | | | | | [place] [address] | [place] [address] | | | | | [phone] | [phone] | | | | | | | [...] this encounter Miscellaneous Notes Telephone Encounter - Caterina Levine RN - 03/24/2013 11:46 AM PDTRx for [place] called [facility] o [facility] and left on Rx message lineElectronically signed by Caterina Levine RN at 2012 11:48 AM PDTdocumented in this encounter Plan of [...] | | | | | | [place] [address] | | | | | | [phone] | | | | | | | | +--------+---------+ + + + documented as of this encounter Visit Diagnoses Not on filedocumented in this encounter"
--- OUTSIDE RECORDS SUMMARY | ~2020-08-30 | XMS | Encounter Summary ---
Demographics + + + | Address | [address] | | | [place] [address] | + + + | Home Phone | | + + + | Preferred Language | Unknown | + + + | Marital Status | | + + + | Taoism Affiliation | 1009 | + + + | Race | White | + + + | Ethnic Group | Not or | + + + Author + + + | Author | [facility] | | | and [place] | + + + | Organization | [facility] | | [...] [place] | | | | | [address] | | + + + + + | Floyd Herndon | ECON | NA | | | | | NA, | | + + + + + Care Team Providers + +------+ + | Care Brine Tank Tender Name | Role | Phone | [...] Description | +--------+--------+ + + + | 11/07/ | Refill | [facility] | Beltran Fields, | Medication Refill | | 2012 | | MEDICINE [place] | [address] | | | | | [address] | [place] [address] [place], | | | | | [place] | [place] [address] | | | | | [address] | [phone] | | | | | [phone] | | | +--------+--------+ + + + [...] | | | | | | [place] [address] | | | | | | [phone] | | | | | | | | +--------+---------+ + + + documented as of this encounter Visit Diagnoses Not on filedocumented in this encounter"
--- OUTSIDE RECORDS SUMMARY | ~2020-08-30 | XMS | Encounter Summary ---
Demographics + + + | Address | [address] | | | [place] [address] | + + + | Home Phone [...] Author | [facility] | | | and [place] | + + + | Organization | [facility] | | [...] [place] | | | | | [address] | | + + + + + | Floyd Herndon | ECON | NA | | | | | NA, | | + + + + + Care Team Providers + +------+ + | Care Bonding Molder Name | Role | Phone | + +------+ + | Beltran Fields MD | PCP | | + +------+ + Reason for Visit + +--------+ + | Reason | Onset | Comments | | | Date | | + +--------+ + | Medication Refill | 02/13/ | | | | 2012 | | + +--------+ + Encounter Details +--------+--------+ + + + | Date | Type | Department | Care Team | Description | +--------+--------+ + + + | 02/13/ | Refill | [facility] | Beltran Fields, | Medication Refill | | 2012 | | MEDICINE [address] | [address] | | | | | [address] [place], | [place] [address] [place], | | | | | [place] [address] | [place] [id number] | | | | | [phone] | [phone] | | | | | | | [...] this encounter Miscellaneous Notes Telephone Encounter - China Littlejohn RN - 02/13/2013 10:45 AM PDTLAST REFILLED: 09/08/12 # 10 LAST VISIT: 09/08/12 NEXT SCHEDULED: 000 documented in this enc ounter Plan of Treatment +--------+---------+ + + + | Date | Type | Specialty | Care Team | Description | +--------+---------+ + + + | 11/05/ | Office | Cardiology | Cristiano Stout, | | | 2019 | Visit | | MD [address] | | | | | | [place], | | | | | | [place] [address] | | | | | | [phone] | | | | | | | | +--------+---------+ + + + documented as of this encounter Visit Diagnoses Not on filedocumented in this encounter"
--- OUTSIDE RECORDS SUMMARY | ~2020-08-30 | XMS | Encounter Summary ---
Demographics + + + | Address | [address] | | | [place] [address] | + + + | Home Phone [...] [place] | | | | | [address] | | + + + + + | Floyd Herndon | ECON | NA | | | | | NA, | | + + + + + Care Team Providers + +------+ + | Care Rig Hand Name | Role | Phone | + [...] | 01/28/ | Refill | [facility] [place] [facility] | Beltran Fields, | Medication Refill | | 2019 | | MEDICINE [address] | MD [address] | | | | | [place], | [place] [address] [place], | | | | | [place] [address] | [place] [address] | | | | | [phone] | [phone] | | | | | | | [...] | | | | | | [place] [address] | | | | | | [phone] | | | | | | | | +--------+---------+ + + + documented as of this encounter Visit Diagnoses Not on filedocumented in this encounter"
--- OUTSIDE RECORDS SUMMARY | ~2020-08-30 | XMS | Encounter Summary ---
Demographics + + + | Address | [address] | | | [place] [address] | + + + | Home Phone [...] [place] | | | | | [address] | | + + + + + | Floyd Herndon | ECON | NA | | | | | NA, | | + + + + + Care Team Providers + +------+ + | Care Director Of Laboratory Operations Name | Role | Phone | + [...] + + | 08/27/ | Refill | [facility] | Beltran Fields, | Medication Refill | | 2020 | | [facility] | [address] | | | | | MEDICINE [place] | [place] [address] [place], | | | | | [address] | [place] [address] | | | | | [place] [address] [place], | [phone] | | | | | [place] [address] | | | | | | [phone] | | | +--------+--------+ + + + [...] Telephone Encounter - Julia Kearns RN - 08/29/2020 5:01 PM PDTLast appointment: 01/13 Next appointment: None Per 08/19 note, patient does not want to schedule follow up with PCP at this time. Looks lik e he is following up with public policy professor Dr. Stout. OK to hold off on appointment and refill hydrochlorothiazide? documented in this encounter Plan of Treatment +--------+---------+ + + + | Date | Type | Specialty | Care Team | Description | +--------+---------+ + + + | 11/05/ | Office | Cardiology | Cristiano Stout, | | | 2019 | Visit | | MD [address] | | | | | | [place], | | | | | | [place] [address] | | | | | | [phone] | | | | | | | | +--------+---------+ + + + documented as of this encounter Visit Diagnoses + + | Diagnosis | + + | Essential hypertension, benign | + + documented in this encounter"
--- OUTSIDE RECORDS SUMMARY | ~2020-08-30 | XMS | Encounter Summary ---
Demographics + + + | Address | [address] | | | [place] [address] | + + + | Home Phone [...] [place] | | | | | [address] | | + + + + + | Floyd Herndon | ECON | NA | | | | | NA, | | + + + + + Care Team Providers + +------+ + | Care Airflight Attendants Supervisor Name | Role | Phone | [...] + + | 02/02/ | Office | [facility] | Beltran Fields, | Other hyperlipidemia | | 2017 | Visit | MEDICINE [address] | [address] | (Primary Dx); | | | | AVE [place], | [place] [address] [place], | Essential | | | | [place] [address] | [place] [address] | hypertension, | | | | [phone] | [phone] | benign; History of | | | [...] per Cardiology Dr Niranjan Luevano MD in [place]. 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 He is . 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 He lives in [place] 9 living Grandchildren. Review of Systems [...] APNEA ATRIAL FIBRILLATION WITH RAPID VENTRICULAR RESPONSE [facility] 02/06/08 - 03/08/08 PSA, INCREASED GROSS [...] [2]. Patient Currently working? yes Substance Use: Guy's Tobacco Use: History Smoking status Never Smoker Smokeless tobacco Never Used . Gyu's alcohol use: History Alcohol Use Yes Comment: [...] capsule 4 capsules by mouth at bedtime Donald-3 Fatty Acids (EQL FISH OIL) 1000 MG [...] as PCP - General Current Medicare Suppliers: [employer] #[id number] - [place] - [address] [place] [address] Immunizations Immunization History Administered Date(s) Administered INFLUENZA QUADR W/PRES (PED/ADOL/ADULT) MULTIDOSE 08/29/2014, 09/14/2016 INFLUENZA, W/Preservative 07/26/2013 Preventative Care and Screening (Attestation) The following health maintenance items are reviewed in Epic and correct as of today: Health Maintenance [...] regular Exercise: USPSTF ex recs reviewed Immunizations: NMD Screening Labs: Ordered Screening Exams: [facility] HEALTH RISK APPRAISAL (Attestation) Health Risk [...] | | | | | | [place] [address] | | | | | | [phone] | | | | | | | [...]
--- OUTSIDE RECORDS SUMMARY | ~2020-08-30 | XMS | Encounter Summary ---
Demographics + + + | Address | [address] | | | [place] [address] | + + + | Home Phone [...] | Author | [facility] | | | and [place] | + + + | Organization | [facility] | | | [...] [place] | | | | | [address] | | + + + + + | Floyd Herndon | ECON | NA | | | | | NA, | | + + + + + Care Team Providers + +------+ + | Care Director Of Securities And Real Estate Name | Role | Phone | + +------+ + | Beltran Fields MD | PCP | | + +------+ + Reason for Visit +--------+--------+ + | Reason | Onset | Comments | | | Date | | +--------+--------+ + | Other | 05/07/ | Need 6 month PSA only due 05/14/14 | | | 2013 | | +--------+--------+ + Encounter Details +--------+ + + + + | Date | Type | Department | Care Team | Description | +--------+ + + + + | 05/07/ | Telephone | [facility] | Joridn Padron, | Other (Need 6 month | | 2013 | | [address] | [address] | PSA only due | | | | [place] | [place] | 05/14/14) | | | | [address] | [address] | | | | | [phone] | | | +--------+ + + + [...] Telephone Encounter - Nano Ordonez CMA - 05/09/2014 2:38 PM PDTRoger completed 6 month PSA on 05/08/14 @ [facility].Electronically signed by Nano Ordonez CMA at 05/09 2:39 PM PDTTelephone Encounter - Nano Ordonez CMA - 05/07/2014 10:48 AM PDTLVM on 05/07/14 for pt to call back Dr. Padron's office regarding need for 6 month PSA only to be d rawn due 05/14/14. Order is in the system. This message was made in response to staff message: Needs 6 month PSA ONLY. DUE ~05/14/14 ([facility])/LINH documented in this e ncounter Plan of [...] | | | | | | [place] [address] | | | | | | [phone] | | | | | | | | +--------+---------+ + + + documented as of this encounter Visit Diagnoses Not on filedocumented in this encounter"
--- OUTSIDE RECORDS SUMMARY | ~2020-08-30 | XMS | Encounter Summary ---
Demographics + + + | Address | [address] | | | [place] [address] | + + + | Home Phone [...] [place] | | | | | [address] | | + + + + + | Floyd Herndon | ECON | NA | | | | | NA, | | + + + + + Care Team Providers + +------+ + | Care Peoplesoft Taleo Manager Name | Role | Phone | [...] [place], | [place] | | | | [place] [address] | [place] [address] | hypertension, | | | | [phone] | [phone] | benign; Other | | | | [...] [place], | | | | | | [place] [address] | | | | | | [phone] | | | | | | | [...]
--- OUTSIDE RECORDS SUMMARY | ~2020-08-30 | XMS | Encounter Summary ---
Demographics + + + | Address | [address] | | | [place] [address] | + + + | Home Phone [...] [place] | | | | | [address] | | + + + + + | Floyd Herndon | ECON | NA | | | | | NA, | | + + + + + Care Team Providers + +------+ + | Care Title Searcher Name | Role | Phone | + +------+ + PCP | Unavailable | + +------+ + Encounter Details +--------+ + + + + | Date | Type | Department | Care Team | Description | +--------+ + + + + | 11/24/ | Hospital | [facility] | | | | 2006 | Encounter | [facility] | | | | | | [address] | | | | | | [place] | | | | | | [address] | | | | | | [phone] | | | +--------+ + + + [...] | | | | | | [place] [address] | | | | | | [phone] | | | | | | | | +--------+---------+ + + + documented as of this encounter Visit Diagnoses Not on filedocumented in this encounter"
--- OUTSIDE RECORDS SUMMARY | ~2020-08-30 | XMS | Encounter Summary ---
Demographics + + + | Address | [address] | | | [place] [address] | + + + | Home Phone [...] + | Author | [facility] | | | and [place] | + + + | Organization | [facility] | | | [...] [place] | | | | | [address] | | + + + + + | Floyd Herndon | ECON | NA | | | | | NA, | | + + + + + Care Team Providers + +------+ + | Care River Rat Name | Role | Phone | + +------+ + | Beltran Fields MD | PCP | | + +------+ + Reason for Visit +---------+--------+ + | Reason | Onset | Comments | | | Date | | +---------+--------+ + | Results | 11/13/ | | | | 2012 | | +---------+--------+ + Encounter Details +--------+ + + + + | Date | Type | Department | Care Team | Description | +--------+ + + + + | 11/13/ | Telephone | [facility] | Jordin Padron, | Results | | 2012 | | [address] | MD [address] | | | | | [place] | [place] | | | | | [address] | [address] | | | | | [phone] | | | +--------+ + + + [...] Telephone Encounter - Claribel Trinidad RN - 11/14/2013 3:33 PM PSTPATIENT NOTIFIED. HE WOULD LIKE TO HAVE FOLLOW UP URINALYSIS AT [facility] IN [place]. ORDER ENTERED INTO EMR AND FAXED TO [facility]. elephone Encounter - Claribel Trinidad RN - 11/14/2013 11:19 AM PSTLEFT MESSAGE FOR PATIENT TO CALL. e lephone Encounter - Jordin Padron MD - 11/13/2013 5:46 PM PSTPlease notify patient that his UA today demonstrates 3-10 rbc's. (Normal is 0-3). Please repeat UA, and if still positive, I recommend repeat cystoscopy, cytology, and CT-IV P, as he had 3 years ago. documented in this encounter Plan of Treatment +--------+---------+ + + + | Date | Type | Specialty | Care Team | Description | +--------+---------+ + + + | 11/05/ | Office | Cardiology | Cristiano Stout, | | | 2019 | Visit | | MD [address] | | | | | | [place], | | | | | | [place] [address] | | | | | | [phone] | | | | | | | | +--------+---------+ + + + + +------+--------+ + + | Name | Type | Priori | Associated Diagnoses | Order Schedule | | | | ty | | | + +------+--------+ + + | Urinalysis, Reflex | Lab | Routin | Hematuria | 1 Occurrences | | Microscopic and/or | | e | | starting 11/14/2013 | | Culture | | | | until 11/14/2014 | + +------+--------+ + + documented as of this encounter Visit Diagnoses + + | Diagnosis | + + | Hematuria - Primary Hematuria, unspecified | + + documented in this encounter"
--- OUTSIDE RECORDS SUMMARY | ~2020-08-30 | XMS | Encounter Summary ---
Demographics + + + | Address | [address] | | | [place] [address] | + + + | Home Phone | | + + + | Preferred Language | Unknown | + + + | Marital Status | | + + + | Anabaptist Affiliation | 1009 | + + + | Race | White | + + + | Ethnic Group | Not or | + + + Author + + + | Author | [facility] | | | and [place] | + + + | Organization | [facility] | | | and [...] [place] | | | | | [address] | | + + + + + | Floyd Herndon | ECON | NA | | | | | NA, | | + + + + + Care Team Providers + +------+ + | Care Budget Report Clerk Name | Role | Phone | + +------+ + | Beltran Fields MD | PCP | | + +------+ + Encounter Details +--------+ + + + + | Date | Type | Department | Care Team | Description | +--------+ + + + + | 10/30/ | Abstract | [facility] | Jordin Padron, | Preventative health | | 2012 | | [address] | MD [address] | care (Primary Dx) | | | | [place] | [place], [place] | | | | | [address] | [address] | | | | | [phone] | | | +--------+ + + + [...] [place], | | | | | | [place] [address] | | | | | | [phone] | | | | | | | [...] [facility] | | | | [facility] | | | | + + + [...] Primary Routine general medical examination at a [facility] | | care facility | + + documented in this encounter"
--- OUTSIDE RECORDS SUMMARY | ~2020-08-30 | XMS | Encounter Summary ---
Demographics + + + | Address | [address] | | | [place] [address] | + + + | Home Phone [...] + | Author | [facility] | | | and [place] | + + + | Organization | [facility] | | | [...] [place] | | | | | [address] | | + + + + + | Floyd Herndon | ECON | NA | | | | | NA, | | + + + + + Care Team Providers + +------+ + | Care Senior Compliance Officer Name | Role | Phone | [...] | 08/27/ | Refill | [facility] | Beltran Fields, | Medication Refill | | 2019 | | [facility]IC[facility] [place] | [address] | | | | | [address] | [place] [address] [place], | | | | | [place] | [place] [address] | | | | | [address] | [phone] | | | | | [phone] | | | +--------+--------+ + + + [...] this encounter Miscellaneous Notes Telephone Encounter - Emani Rodriguez RN - 08/30/2019 7:25 AM PDTMetformin Nena robison electronically. documented in this encounter Plan of Treatment +--------+---------+ + + + | Date | Type | Specialty | Care Team | Description | +--------+---------+ + + + | 11/05/ | Office | Cardiology | Cristiano Stout, | | | 2019 | Visit | | MD [address] | | | | | | [place], | | | | | | [place] [address] | | | | | | [phone] | | | | | | | | +--------+---------+ + + + documented as of this encounter Visit Diagnoses Not on filedocumented in this encounter"
--- OUTSIDE RECORDS SUMMARY | ~2020-08-30 | XMS | Encounter Summary ---
Demographics + + + | Address | [address] | | | [place] [address] | + + + | Home Phone [...] [place] | | | | | [address] | | + + + + + | Floyd Herndon | ECON | NA | | | | | NA, | | + + + + + Care Team Providers + +------+ + | Care Product Test Specialist Name | Role | Phone | [...] | 02/10/ | Refill | [facility] [place] [facility] | Beltran Fields, | Medication Refill | | 2019 | | MEDICINE [address] | MD [address] | | | | | [place], | [place] [address] [place], | | | | | [place] [address] | [place] [address] | | | | | [phone] | [phone] | | | | | | | [...] | | | | | | [place] [address] | | | | | | [phone] | | | | | | | | +--------+---------+ + + + documented as of this encounter Visit Diagnoses Not on filedocumented in this encounter"
--- OUTSIDE RECORDS SUMMARY | ~2020-08-30 | XMS | Encounter Summary ---
Demographics + + + | Address | [address] | | | [place] [address] | + + + | Home Phone | | + + + | Preferred Language | Unknown | + + + | Marital Status | | + + + | Jain Affiliation | 1009 | + + + | Race | White | + + + | Ethnic Group | Not or | + + + Author + + + | Author | [facility] | | | and [place] | + + + | Organization | [facility] | | | [...] [place] | | | | | [address] | | + + + + + | Floyd Herndon | ECON | NA | | | | | NA, | | + + + + + Care Team Providers + +------+ + | Care Liaison Officer Name | Role | Phone | + +------+ + | Keyana Bolton MD | PCP | | + +------+ + Reason for Visit +---------+--------+ + | Reason | Onset | Comments | | | Date | | +---------+--------+ + | Results | 07/27/ | | | | 2013 | | +---------+--------+ + Encounter Details +--------+ + + + + | Date | Type | Department | Care Team | Description | +--------+ + + + + | 07/27/ | Telephone | [facility] | Keyana Bolton, | Results | | 2013 | | MEDICINE [address] | [address] | | | | | [address] [place], | [place] [address] [place], | | | | | [place] [address] | [place] [address] | | | | | [phone] | [phone] | | | | | | | [...] this encounter Miscellaneous Notes Telephone Encounter - Mary Cline CMA - 07/27/2014 11:10 AM PDTCalled Anthony to relay Taylor Bolton message, he states he had already looked at his results via [employer] and is follow ing up with Dr. Padron. Patient verbalizes understanding and has no further questions at thi s time. elephone Encou nter - Mary Cline CMA - 07/27/2014 11:09 AM PDTMessage copied by MARY CLINE on WedJul 27, 2014 1109 ------ Message from: KEYANA BOLTON Created: WedJul 27, 2014 0939 Ok for ma or nurse to notify pt that there may be slight lab abnormalities but that th ey do not require follow up prior to next recommended visit but if they would like to discus s they can rtc earlier. PSA is slightly lower than previous. Rec Repeat PSA three months.E lectronically signed by Mary Cline CMA at 07/27/2014 11:09 AM PDTdocumented in this enco unter Plan of Treatment +--------+---------+ + + + | Date | Type | Specialty | Care Team | Description | +--------+---------+ + + + | 11/05/ | Office | Cardiology | Cristiano Stout, | | | 2019 | Visit | | MD [address] | | | | | | [place], | | | | | | [place] [address] | | | | | | [phone] | | | | | | | | +--------+---------+ + + + documented as of this encounter Visit Diagnoses Not on filedocumented in this encounter"
--- OUTSIDE RECORDS SUMMARY | ~2020-08-30 | XMS | Encounter Summary ---
Demographics + + + | Address | [address] | | | [place] [address] | + + + | Home Phone [...] [place] | | | | | [address] | | + + + + + | Floyd Herndon | ECON | NA | | | | | NA, | | + + + + + Care Team Providers + +------+ + | Care Jacquard Loom Heddles Tier Name | Role | Phone | + +------+ + PCP | Unavailable | + +------+ + Encounter Details +--------+ + + + + | Date | Type | Department | Care Team | Description | +--------+ + + + + | 02/05/ | Hospital | [facility] | | | | 2007 - | Encounter | [facility] CTR XRAY [address] | | | | | | [place] | | | | 02/12/ | | [place] [address] | | | | 2007 | | [phone] | | | +--------+ + + + [...] | | | | | | [place] | | | | | | [place] [address] | | | | | | [phone] | | | | | | | | +--------+---------+ + + + documented as of this encounter Visit Diagnoses Not on filedocumented in this encounter"
--- OUTSIDE RECORDS SUMMARY | ~2020-08-30 | XMS | Encounter Summary ---
Demographics + + + | Address | [address] | | | [place] [address] | + + + | Home Phone [...] + | Author | [facility] | | | and [place] | + + + | Organization | [facility] | | | [...] [place] | | | | | [address] | | + + + + + | Floyd Herndon | ECON | NA | | | | | NA, | | + + + + + Care Team Providers + +------+ + | Care Keno Clerk Name | Role | Phone | + +------+ + | Beltran Fields MD | PCP | | + +------+ + Encounter Details +--------+ + + + + | Date | Type | Department | Care Team | Description | +--------+ + + + + | 03/24/ | Hospital | [facility] | Beltran Fields, | IGT (impaired | | 2013 | Encounter | [facility] | MD [address] | glucose tolerance); | | | | [address] [place] | [place] [address] [place], | Other nonspecific | | | | [place], [place] | [place] [address] | finding on | | | | [address] | [phone] | examination of urine | | | | [phone] | | | +--------+ + + + [...] + + + +---------+ + + | [place]-3 Fatty | two capsules by | | [...] + + +---------+ + + | tadalafil (MARIELIS) | Take one-half to one | 10 [...] like to discuss w latanya a month. oBeltran kingsley MD - 03/28/2013 5:03 PM PDT Quick [...] | | | | | | [place] [address] | | | | | | [phone] | | | | | | | | +--------+---------+ + + + documented as of this encounter Procedures + +--------+ + + + | Procedure Name | Priori | Date/Time | Associated Diagnosis | Comments | | | ty | | | | + +--------+ + + + | RAFI BRAVO, | Routin | 11/13/2013 | | Results [...] + | [facility] | [address] | [place], [place] | [phone] | | [facility] | | [address] | | | - LABORATORY | | | | + + + + + | [facility] | [address] | [place], [place] | | | [facility] | | [address] | | | - LABORATORY [...] - 1.030 | [facility] | | | [place], | | | [facility] | | [...] + | [facility] | [address] | [place], [place] | [phone] | | [facility] | | [address] | | | - LABORATORY | | | | + + + + + | [facility] | [address] | [place], [place] | | | [facility] | | [address] [place] [address] | | | - LABORATORY | | [...] + | [facility] | [address] | [place], [place] | [phone] | | [facility] | | [address] | | | - LABORATORY | | | | + + + + + | [facility] | [address] | [place] | | | [facility] | | [address] [place] [address] | | | - LABORATORY | | [...] + | [facility] | [address] | [place] | [phone] | | [facility] | | [address] | | | - LABORATORY | | | | + + + + + | [facility] | [address] | [place], [place] | | | [facility] | | [address] | | | - LABORATORY | | | | + + + + + documented in this encounter Visit Diagnoses + + | Diagnosis | + + | IGT (impaired glucose tolerance) Impaired glucose tolerance test | + + | Other nonspecific finding on examination of urine | + + documented in this encounter"
--- OUTSIDE RECORDS SUMMARY | ~2020-08-30 | XMS | Encounter Summary ---
Demographics + + + | Address | [address] | | | [place] [address] | + + + | Home Phone | | + + + | Preferred Language | Unknown | + + + | Marital Status | | + + + | Congregation Affiliation | 1009 | + + + [...] [place] | | | | | [address] | | + + + + + | Floyd Herndon | ECON | NA | | | | | NA, | | + + + + + Care Team Providers + +------+ + | Care Equipment Worker Name | Role | Phone | [...] | | | 2019 | | [address] | MD [address] | | | | | [place] | [place] | | | | | [address] | [address] | | | | | [phone] | | | +--------+ + + + [...] [place], | | | | | | [place] [address] | | | | | | [phone] | | | | | | | [...] | Clear | | | | | Urine | [...] - 1.03 | EXTERNAL | | | [place], | | | LAB | | | [...]
--- OUTSIDE RECORDS SUMMARY | ~2020-08-30 | XMS | Encounter Summary ---
Demographics + + + | Address | [address] | | | [place] [address] | + + + | Home Phone [...] [place] | | | | | [address] | | + + + + + | Floyd Herndon | ECON | NA | | | | | NA, | | + + + + + Care Team Providers + +------+ + | Care Data Integration Developer Name | Role | Phone | [...] | 02/06/ | Refill | [facility] [place] [facility] | Beltran Fields, | Medication Refill | | 2019 | | MEDICINE [address] | MD [address] | | | | | [place], | [place] [address] [place], | | | | | [place] [address] | [place] [address] | | | | | [phone] | [phone] | | | | | | | [...] | | | | | | [place] [address] | | | | | | [phone] | | | | | | | | +--------+---------+ + + + documented as of this encounter Visit Diagnoses Not on filedocumented in this encounter"
--- OUTSIDE RECORDS SUMMARY | ~2020-08-30 | XMS | Encounter Summary ---
Demographics + + + | Address | [address] | | | [place] [address] | + + + | Home Phone [...] [place] | | | | | [address] | | + + + + + | Floyd Herndon | ECON | NA | | | | | NA, | | + + + + + Care Team Providers + +------+ + | Care Grinding Supervisor Name | Role | Phone | + +------+ + | Beltran Fields MD | PCP | | + +------+ + Encounter Details +--------+ + + + + | Date | Type | Department | Care Team | Description | +--------+ + + + + | 05/09/ | Abstract | [facility] [place] [facility] | Jordin Padron, | | | 2013 | | [address] | MD [address] | | | | | [place] | [place] | | | | | [address] | [address] | | | | | [phone] | | | +--------+ + + + [...] | | | | | | [place] [address] | | | | | | [phone] | | | | | | | | +--------+---------+ + + + documented as of this encounter Procedures + +--------+ + + + | Procedure Name | Priori | Date/Time | Associated Diagnosis | Comments | | | ty | | | | + +--------+ + + + | EXTERNAL LAB: PSA, | Routin | 05/08/2014 | | Results for this | | SCREEN | e | 12:35 PM | | procedure are in the | | | | PDT | | results section. | + +--------+ + + + documented in this encounter Results External Lab: PSA, Screen (05/08/2014 12:35 PM PDT) + + + + + + | Component | Value | Ref Range | Performed | Pathologist | | | | | At | Signature | + + + + + + | PSA, | 11.88 (A) | 0 - 4 | EXTERNAL | | | External | | | LAB | | + + + + + + + + | Specimen | + + | Blood specimen | | (specimen) | + + + + | Resulting Agency Comment | + + | Drawn at [facility] | + + + +---------+ + + | Performing | Address | City/State/Zipcode | Phone Number | | Organization | | | | + +---------+ + + | EXTERNAL LAB | | | | + +---------+ + + documented in this encounter Visit Diagnoses Not on filedocumented in this encounter"
--- OUTSIDE RECORDS SUMMARY | ~2020-08-30 | XMS | Encounter Summary ---
Demographics + + + | Address | [address] | | | [place] [address] | + + + | Home Phone [...] | Author | [facility] | | | and [place] | + + + | Organization | [facility] | | | [...] [place] | | | | | [address] | | + + + + + | Floyd Herndon | ECON | NA | | | | | NA, | | + + + + + Care Team Providers + +------+ + | Care Public Relations Studies Director Name | Role | Phone | + +------+ + | Beltran Fields MD | PCP | | + +------+ + Reason for Visit + +--------+ + | Reason | Onset | Comments | | | Date | | + +--------+ + | Medication Refill | 06/09/ | | | | 2015 | | + +--------+ + Encounter Details +--------+--------+ + + + | Date | Type | Department | Care Team | Description | +--------+--------+ + + + | 06/09/ | Refill | [facility] [place] [facility] | Beltran Fields, | Medication Refill | | 2015 | | MEDICINE [address] | [address] | | | | | [address] [place], | [place] [address] [place], | | | | | [place] [address] | [place] [address] | | | | | [phone] | [phone] | | | | | | | [...] | | | | | | [place] [address] | | | | | | [phone] | | | | | | | | +--------+---------+ + + + documented as of this encounter Visit Diagnoses Not on filedocumented in this encounter"
--- OUTSIDE RECORDS SUMMARY | ~2020-08-30 | XMS | Encounter Summary ---
Demographics + + + | Address | [address] | | | [place] [address] | + + + | Home Phone | | + + + | Preferred Language | Unknown | + + + | Marital Status | | + + + | Islam Affiliation | 1009 | + + + | Race | White | + + + | Ethnic Group | Not or | + + + Author + + + | Author | [facility] | | | and [place] | + + + | Organization | [facility] | | [...] [place] | | | | | [address] | | + + + + + | Floyd Henrdon | ECON | NA | | | | | NA, | | + + + + + Care Team Providers + +------+ + | Care It Director Name | Role | Phone | + +------+ + | Beltran Fields MD | PCP | | + +------+ + Reason for Visit + +--------+ + | Reason | Onset | Comments | | | Date | | + +--------+ + | Medication Refill | 07/13/ | | | | 2015 | | + +--------+ + Encounter Details +--------+--------+ + + + | Date | Type | Department | Care Team | Description | +--------+--------+ + + + | 07/13/ | Refill | [facility] [place] [facility] | Beltran Fields, | Medication Refill | | 2015 | | MEDICINE [address] | [address] | | | | | [address] [place], | [place] [address] [place], | | | | | [place] [address] | [place] [address] | | | | | [phone] | | | | | | | [...] | | | | | | [place] [address] | | | | | | [phone] | | | | | | | | +--------+---------+ + + + documented as of this encounter Visit Diagnoses + + | Diagnosis | + + | Hypokalemia - Primary Hypopotassemia | + + documented in this encounter"
--- OUTSIDE RECORDS SUMMARY | ~2020-08-30 | XMS | Encounter Summary ---
Demographics + + + | Address | [address] | | | [place] [address] | + + + | Home Phone [...] + + + | Author | [facility] | | | and [place] | + + + | Organization | [facility] | | | and [place] | + + + | Address | Unknown | + + + | Phone | Unavailable | + + + Support + + + + + | Name | Relationship | Address | Phone | + + + + + | uYliet Crow | ECON | [address] | | | | | [place] | | | | | [address] | | + + + + + | Floyd Herndon | ECON | NA | | | | | NA, | | + + + + + Care Team Providers + +------+ + | Care Blanket Binder Name | Role | Phone | + +------+ + | Beltran Fields MD | PCP | | + +------+ + Reason for Visit + +--------+ + | Reason | Onset | Comments | | | Date | | + +--------+ + | Medication Refill | 05/11/ | | | | 2013 | | + +--------+ + Encounter Details +--------+--------+ + + + | Date | Type | Department | Care Team | Description | +--------+--------+ + + + | 05/11/ | Refill | [facility] [place] [facility] | Beltran Fields, | Medication Refill | | 2013 | | MEDICINE [address] | [address] | | | | | [address] [place], | [address] [address] [place], | | | | | [place] [address] | [place] [address] | | | | | [phone] | [phone] | | | | | | | [...] | | | | | | [place] [address] | | | | | | [phone] | | | | | | | | +--------+---------+ + + + documented as of this encounter Visit Diagnoses + + | Diagnosis | + + | Hyperlipidemia - Primary Other and unspecified hyperlipidemia | + + documented in this encounter"
--- OUTSIDE RECORDS SUMMARY | ~2020-08-30 | XMS | Encounter Summary ---
Demographics + + + | Address | [address] | | | [place] [address] | + + + | Home Phone [...] Author | [facility] | | | and [place] | + + + | Organization | [facility] | | [...] [place] | | | | | [address] | | + + + + + | Floyd Herndon | ECON | NA | | | | | NA, | | + + + + + Care Team Providers + +------+ + | Care Hypercil Core Transformer Assembler Name | Role | Phone | + +------+ + | Beltran Fields MD | PCP | | + +------+ + Reason for Visit +--------+--------+ + | Reason | Onset | Comments | | | Date | | +--------+--------+ + | Other | 08/15/ | HEMATURIA | | | 2013 | | +--------+--------+ + Encounter Details +--------+ + + + + | Date | Type | Department | Care Team | Description | +--------+ + + + + | 08/15/ | Telephone | [facility] [place] [facility] | Jordin Vo, | Other (HEMATURIA) | | 2013 | | [address] | MD [address] | | | | | [place] | [place] | | | | | [address] | [address] | | | | | [phone] | | | +--------+ + + + [...] Telephone Encounter - Claribel Trinidad RN - 08/16/2014 5:08 PM PDTPATIENT NOTIFIED. SC HEDULED FOR 08/21/14 AT 9:[address] VO WE WILL PLAN ON DOING A CYSTOSCOPY THAT DAY, ALS O. elephone Encount er - Jordin Vo MD - 08/16/2014 4:34 PM PDTPlease notify patient that his urinalysis is not suggestive of a UTI. No antibiotics needed. Please let him know that I will be out of the office tomorrow and in the operating room. Please work him into the schedule next we ek. elephone Encounter - Claribel Trinidad RN - 08/16/2014 8:[address] VO FOR REVIEW.Raiza sales signed by Claribel Trinidad RN at 08/16/2014 8:31 AM PDTTelephone Encounter - Claribel Chun RN - 08/15/2014 9:37 AM PDTSPOKE WITH PATIENT. HE STATES HE HAS NOTICED BLOO D SINCE LAST Wednesday. HE STATES THE FIRST COUPLE OF DAYS WERE INTERMITTENT, BUT THIS IS THE 3RD DAY IT IS EVERY TIME HE URINATES AND HE HAS NOTICED BLOOD CLOTS IN THE MORNINGS. HE DEN IES PAIN OR FEVER. ADVISED TO LEAVE A URINALYSIS. ORDERS FAXED TO [facility].Elec tronically signed by Claribel Trinidad RN at 08/15/2014 9:42 AM PDTTelephone Encounter - Angelita Greer - 08/15/2014 8:34 AM PDTSEEING A LOT OF BLOOD IN HIS URINE. DENIES BURNING , FREQUENCY AND TEMPETURE. WOULD LIKE TO SEE DR VO VINNY. CALL [phone] Electronical ly signed by Angelita Guzman at 08/15/2014 8:35 AM PDTdocumented in this encounter Plan of [...] | | | | | | [place] [address] | | | | | | [phone] | | | | | | | [...]
--- OUTSIDE RECORDS SUMMARY | ~2020-08-30 | XMS | Encounter Summary ---
Demographics + + + | Address | [address] | | | [place] [address] | + + + | Home Phone | | + + + | Preferred Language | Unknown | + + + | Marital Status | | + + + | Mormon Affiliation | 1009 | + + + [...] [place] | | | | | [address] | | + + + + + | Floyd Herndon | ECON | NA | | | | | NA, | | + + + + + Care Team Providers + +------+ + | Care Content Assistant Name | Role | Phone | + [...] Description | +--------+--------+ + + + | 07/16/ | Refill | [facility] [place] [facility] | Beltran Fields, | Medication Refill | | 2020 | | [facility] | [address] | | | | | [address] | [place] [address] [place], | | | | | [place] | [place] [address] | | | | | [address] | [phone] | | | | | [phone] | | | +--------+--------+ + + + [...] Notes Telephone Encounter - CarlosShaneJolene R - 07/18/2020 9:11 AM PDTPatient previously called eri prajapati (previous encounter) and not able to contact sent out blue card. elephone Encounter - Julia Kearns RN - 020 8:37 AM PDTDue for 6-month follow up on hypertension/cholesterol/diabetes. Please schedule with PCP. Needs fasting labs prior. 8:3 8 AM PDTdocumented in this encounter Plan of Treatment +--------+---------+ + + + | Date | Type | Specialty | Care Team | Description | +--------+---------+ + + + | 11/05/ | Office | Cardiology | Cristiano Stout, | | 2019 | Visit | | MD [address] | | | | | | [place], | | | | | | [place] [address] | | | | | | [phone] | | | | | | | | +--------+---------+ + + + documented as of this encounter Visit Diagnoses Not on filedocumented in this encounter"
--- OUTSIDE RECORDS SUMMARY | ~2020-08-30 | XMS | Encounter Summary ---
Demographics + + + | Address | [address] | | | [place] [address] | + + + | Home Phone [...] [place] | | | | | [address] | | + + + + + | Floyd Herndon | ECON | NA | | | | | NA, | | + + + + + Care Team Providers + +------+ + | Care Microfilm Mounter Name | Role | Phone | + [...] Description | +--------+--------+ + + + | 11/19/ | Refill | [facility] [place] [facility] | Beltran Fields, | Medication Refill | | 2012 | | MEDICINE [place] | [address] | | | | | [address] | [place] [address] [place], | | | | | [place] | [place] [address] | | | | | [address] | [phone] | | | | | [phone] | | | +--------+--------+ + + + [...] Telephone Encounter - Hien Grace RN - 11/21/2012 10:05 AM PSTLast seen 09/08/2012 Last filled 05/23/2012 documented in this encounter Plan of Treatment +--------+---------+ + + + | Date | Type | Specialty | Care Team | Description | +--------+---------+ + + + | 11/05/ | Office | Cardiology | Cristiano Stout, | | | 2019 | Visit | | MD [address] | | | | | | [place], | | | | | | [place] [address] | | | | | | [phone] | | | | | | | | +--------+---------+ + + + documented as of this encounter Visit Diagnoses + + | Diagnosis | + + | Hyperlipidemia - Primary Other and unspecified hyperlipidemia | + + documented in this encounter"
--- OUTSIDE RECORDS SUMMARY | ~2020-08-30 | XMS | Encounter Summary ---
Demographics + + + | Address | [address] | | | [place] [address] | + + + | Home Phone [...] [place] | | | | | [address] | | + + + + + | Floyd Herndon | ECON | NA | | | | | NA, | | + + + + + Care Team Providers + +------+ + | Care Cnc Machinist 2Nd Shift Name | Role | Phone | + [...] | | | | | [address] | | | | | | [place] | | | | | | [address] | | | | | | [phone] | | | +--------+ + + + [...] | | | | | | [place] [address] | | | | | | [phone] | | | | | | | | +--------+---------+ + + + documented as of this encounter Visit Diagnoses Not on filedocumented in this encounter"
--- OUTSIDE RECORDS SUMMARY | ~2020-08-30 | XMS | Encounter Summary ---
Demographics + + + | Address | [address] | | | [place] [address] | + + + | Home Phone [...] + + + | Author | [facility] | | | and [place] | + + + | Organization | [facility] | | | and [place] | + + + | Address | Unknown | + + + | Phone | Unavailable | + + + Support + + + + + | Name | Relationship | Address | Phone | + + + + + | Yuliet Crow | ECON | [address] [facility] | | | | | [place] | | | | | [address] | | + + + + + | Floyd Herndon | ECON | NA | | | | | NA, | | + + + + + Care Team Providers + +------+ + | Care Refining Machine Operator Name | Role | Phone | + +------+ + | Beltran Fields MD | PCP | | + +------+ + Reason for Visit + +--------+ + | Reason | Onset | Comments | | | Date | | + +--------+ + | Follow-up | 05/14/ | follow up ER [facility] 05/05/15 urinary retention, | | | 2014 | hematuria | + +--------+ + Encounter Details +--------+ + + + + | Date | Type | Department | Care Team | Description | +--------+ + + + + | 05/14/ | Telephone | [facility] | Beltran Fields, | Follow-up (follow up | | 2014 | | MEDICINE [address] | [address] | [facility] | | | | [address]VE [place], | [place] [address] [place], | 05/05/15 urinary | | | | [place] [address] | [place] [address] | retention, hematuria | | | | [phone] | [phone] | ) | | | | | [...] this encounter Miscellaneous Notes Telephone Encounter - Jeanine Lynn CMA - 05/16/2015 1:05 PM PDTAttempted to schedule patient, but he needs a late appointment. He states he will look into his schedule, but may need to establish with another doctor so can come in for a later appointment. Electronicall y signed by Jeanine Lynn CMA at 05/16/2015 1:08 PM PDTTelephone Encounter - Jeanine Lynn CMA - 05/16/2015 1:04 PM PDTCalled patient and he states that he is being followed by urologist. ele phone Encounter - Constance Morgan RN - 05/14/2015 3:56 PM PDTReceived [facility] DX: urinary retention;hematuria. Called patient to schedule ap pt. Left message to return call. Last appt 11/22/14 documented in this encounter Plan of Treatment +--------+---------+ + + + | Date | Type | Specialty | Care Team | Description | +--------+---------+ + + + | 11/05/ | Office | Cardiology | Cristiano Stout, | | | 2019 | Visit | | MD [address] | | | | | | [place], | | | | | | [place] [address] | | | | | | [phone] | | | | | | | | +--------+---------+ + + + documented as of this encounter Visit Diagnoses Not on filedocumented in this encounter"
--- OUTSIDE RECORDS SUMMARY | ~2020-08-30 | XMS | Encounter Summary ---
Demographics + + + | Address | [address] | | | [place] [address] | + + + | Home Phone | | + + + | Preferred Language | Unknown | + + + | Marital Status | | + + + | Baptist Affiliation | 1009 | + + + [...] [place] | | | | | [address] | | + + + + + | Floyd Herndon | ECON | NA | | | | | NA, | | + + + + + Care Team Providers + +------+ + | Care Administrative Associate Name | Role | Phone | + +------+ + | Beltran Fields MD | PCP | | + +------+ + Reason for Visit + +--------+ + | Reason | Onset | Comments | | | Date | | + +--------+ + | Medication Refill | 01/07/ | | | | 2015 | | + +--------+ + Encounter Details +--------+--------+ + + + | Date | Type | Department | Care Team | Description | +--------+--------+ + + + | 01/07/ | Refill | [facility] [place] [facility] | Beltran Fields, | Medication Refill | | 2015 | | MEDICINE [address] | [address] | | | | | [address]VE [place], | [place] [address] [place], | | | | | [place] [address] | [place] [address] | | | | | [phone] | [phone] | | | | | | | [...] | | | | | | [place] [address] | | | | | | [phone] | | | | | | | | +--------+---------+ + + + documented as of this encounter Visit Diagnoses Not on filedocumented in this encounter"
--- OUTSIDE RECORDS SUMMARY | ~2020-08-30 | XMS | Encounter Summary ---
Demographics + + + | Address | [address] | | | [place] [address] | + + + | Home Phone | | + + + | Preferred Language | Unknown | + + + | Marital Status | | + + + | Yazidi Affiliation | Unknown | + + + | Race | White | + + + | Ethnic Group | Not or | + + + Author + + + | Author | [facility] | + + + | Organization | [facility] | + + + | Address | Unknown | + + + | Phone | Unavailable | + + + Support + + + + + | Name | Relationship | Address | Phone | + + + + + | Yuliet Ma | ECON | [address] [facility] | | | | | [place] | | | | | [address] | | + + + + + Care Team Providers + +------+ + | Care Air Tool Operator Name | Role | Phone | [...] [id number] | | | | | | [place], [place] | | | | | | [address] | | | | | | [phone] | | | +--------+ + + + [...]
--- OUTSIDE RECORDS SUMMARY | ~2020-08-30 | XMS | Encounter Summary ---
Demographics + + + | Address | [address] | | | [place] [address] | + + + | Home Phone | | + + + | Preferred Language | Unknown | + + + | Marital Status | | + + + | Zoroastrian Affiliation | 1009 | + + + | Race | White | + + + | Ethnic Group | Not or | + + + Author + + + | Author | [facility] | | | and [place] | + + + | Organization | [facility] | | [...] [place] | | | | | [address] | | + + + + + | Floyd Herndon | ECON | NA | | | | | NA, | | + + + + + Care Team Providers + +------+ + | Care Purchasing Officer Name | Role | Phone | + +------+ + | Beltran Fields MD | PCP | | + +------+ + Reason for Visit + +--------+ + | Reason | Onset | Comments | | | Date | | + +--------+ + | Follow-up | 03/25/ | | | | 2017 | | + +--------+ + Encounter Details +--------+ + + + + | Date | Type | Department | Care Team | Description | +--------+ + + + + | 03/25/ | Telephone | [facility] | Geronimo Iglesias PA | Follow-up | | 2017 | | SLEEP DISORDER [address] | [address] | | | | | [place] | [place] | | | | | [place] [address] | [id number] | | | | | [phone] | | | +--------+ + + + [...] this encounter Miscellaneous Notes Telephone Encounter - Geronimo Iglesias PA - 04/12/2018 3:36 PM PDTRoger was last seen in our office on 04/21/2016. We were not able to schedule him for his next follow up because he berg s not returned messages left for him on three occasions. He has mild apnea. He was doing we ll with his CPAP compliance at his last appointment. We will not attempt to reschedule this appointment. We will follow up with him at his request. TENNILLE Campbell elephon e Encounter - Florence Qureshi Quality Management Coordinator - 04/12/2018 10:15 AM PDTCalled patient to schedule two year follow up appointment with Geronimo Iglesias PA-C. I left a voicemail with our h ours and number. This was the third attempt to contact this patient. elephone Encounter - Erlinda Church Quality Management Coordinator - 03/31/2018 8:35 AM PDTCalled patient and left a message to call us back. elep alec Encounter - Anaya Church Medical Assistant - 03/25/2018 8:32 AM PDTCalled patient to s chedule his two year follow up with NIRAJ Campbell and left a message to call us back. Elec tronically signed by Kamar Warner at 03/25/2018 8:32 AM PDTdocumented in t his encounter Plan of Treatment +--------+---------+ + + + | Date | Type | Specialty | Care Team | Description | +--------+---------+ + + + | 11/05/ | Office | Cardiology | Cristiano Stout, | | | 2019 | Visit | | MD [address] | | | | | | [place], | | | | | | [place] [address] | | | | | | [phone] | | | | | | | | +--------+---------+ + + + documented as of this encounter Visit Diagnoses Not on filedocumented in this encounter"
--- OUTSIDE RECORDS SUMMARY | ~2020-08-30 | XMS | Encounter Summary ---
Demographics + + + | Address | [address] | | | [place] [address] | + + + | Home Phone [...] [place] | | | | | [address] | | + + + + + | Floyd Herndon | ECON | NA | | | | | NA, | | + + + + + Care Team Providers + +------+ + | Care Epidemiology Intern Name | Role | Phone | + +------+ + PCP | Unavailable | + +------+ + Encounter Details +--------+ + + + + | Date | Type | Department | Care Team | Description | +--------+ + + + + | 03/05/ | Hospital | [facility] | Navid Main MD | | | 2007 | Encounter | MED CTR GENERIC OP | [address], [place] | | | | | CONV DEPT [address] | [address] [place], [place] | | | | | [address], | [address] | | | | | [place] [address] | | | | | | [phone] | | | +--------+ + + + [...] DR | | | | | | [place], | | | | | | [place] [address] | | | | | | [phone] | | | | | | | | +--------+---------+ + + + documented as of this encounter Visit Diagnoses Not on filedocumented in this encounter"
--- OUTSIDE RECORDS SUMMARY | ~2020-08-30 | XMS | Encounter Summary ---
Demographics + + + | Address | [address] | | | [place] [address] | + + + | Home Phone [...] [place] | | | | | [address] | | + + + + + | Floyd Herndon | ECON | NA | | | | | NA, | | + + + + + Care Team Providers + +------+ + | Care Mushroom Cutter Name | Role | Phone | [...] | 2016 | Outreach | MEDICINE [address] | [address] | | | | | [address] [place], | [place] [address] [place], | | | | | [place] [address] | [place] [address] | | | | | [phone] | [phone] | | | | | | | [...] this encounter Miscellaneous Notes Telephone Encounter - Floyd Steele - 12/18/2016 3:51 PM PSTPatient was only ab le to schedule yearly exam at 7:15 am. elephone Encounter - Floyd Steele - 12/16/2016 9:15 AM PSTLeft message for patient to return call to schedule annual appointment.Electronically sig azam by Floyd Steele at 12/16/2016 9:17 AM PSTTelephone Encounter - Hannah Gardner CMA - 12/08/2016 11:51 AM PST . 12/08/16 Guy Thurman has been identified as having one or more care gaps listed in the table be low (red box): Last Office Visit: 01/29/2016 Next Office Visit: No appointment scheduled Health Topic Patient Goal Patient Most Recent Data Recommended Patient Action Step Blood Pressure Below 140/90 114/72 04/21/2016 Cholesterol Take a cholesterol lowering medication Taking Microalbumin Test at least once a year Not in our Medical Record HbA1c Below 8 is good 7.1 11/14/2015 Weight To manage your weight 262 lbs 04/21/2016 Immunizations Get Immunized Due for: - Flu shot - Pneumococcal - Tdap - Zostavax Colorectal Cancer Screening Get tested Last Updated: Not in our medical records To Primary Care Provider: Beltran Fields MD: Note if you agree with the services due: Office Visit for: Sign or remove pended order(s) as per your assessment - (see Mid Level Java Developer): Orders Placed This Encounter Pending Hemoglobin A1C Ordered On: 12/08/2016 Microalbumin/Creatinine Ratio, Urine Ordered On: 12/08/2016 Approve/Deny Ready for Outreach Communication? Select Yes. *Please provide a more specific DM diagnosis in order to associate.* Thank you, Population Health Support Team 11: 52 AM PSTdocumented in this encounter Plan of Treatment +--------+---------+ + + + | Date | Type | Specialty | Care Team | Description | +--------+---------+ + + + | 11/05/ | Office | Cardiology | Cristiano Stout, | | | 2019 | Visit | | [address] | | | | | | [place], | | | | | | [place] [address] | | | | | | [phone] | | | | | | | | +--------+---------+ + + + documented as of this encounter Visit Diagnoses Not on filedocumented in this encounter"
--- OUTSIDE RECORDS SUMMARY | ~2020-08-30 | XMS | Encounter Summary ---
Demographics + + + | Address | [address] | | | [place] [address] | + + + | Home Phone [...] | Author | [facility] | | | and [place] | + + + | Organization | [facility] | | [...] [place] | | | | | [address] | | + + + + + | Floyd Herndon | ECON | NA | | | | | NA, | | + + + + + Care Team Providers + +------+ + | Care Tree Feller Name | Role | Phone | + +------+ + | Beltran Fields MD | PCP | | + +------+ + Reason for Visit + +--------+ + | Reason | Onset | Comments | | | Date | | + +--------+ + | Appointment | 04/04/ | | | | 2013 | | + +--------+ + Encounter Details +--------+ + + + + | Date | Type | Department | Care Team | Description | +--------+ + + + + | 04/04/ | Telephone | [facility] | Nirali Hobson, | Appointment | | 2013 | | CARDIOLOGY [address] | [address] | | | | | [place], | [place], | | | | | [place] [address] | [place] [address] | | | | | [phone] | [phone] | | | | | | | [...] this encounter Miscellaneous Notes Telephone Encounter - Sima Figueroa - 04/04/2014 3:58 PM PDTIn a phone conversation on , the patient said he has established with Dr. Adan, a freight car repairer in [place]. The patient was due for a 6 month follow up around 10/09/12. documented in this encounter Plan of Treatment +--------+---------+ + + + | Date | Type | Specialty | Care Team | Description | +--------+---------+ + + + | 11/05/ | Office | Cardiology | Cristiano Stout, | | | 2019 | Visit | | MD [address] | | | | | | [place], | | | | | | [place] [address] | | | | | | [phone] | | | | | | | | +--------+---------+ + + + documented as of this encounter Visit Diagnoses Not on filedocumented in this encounter"
--- OUTSIDE RECORDS SUMMARY | ~2020-08-30 | XMS | Encounter Summary ---
Demographics + + + | Address | [address] | | | [place] [address] | + + + | Home Phone [...] Author | [facility] | | | and [place] | + + + | Organization | [facility] | | | and [...] [place] | | | | | [address] | | + + + + + | Floyd Herndon | ECON | NA | | | | | NA, | | + + + + + Care Team Providers + +------+ + | Care Proprietary Trader Name | Role | Phone | + +------+ + | Beltran Fields MD | PCP | | + +------+ + Encounter Details +--------+ + + + + | Date | Type | Department | Care Team | Description | +--------+ + + + + | 08/21/ | Abstract | [place] [facility] | Beltran Fields, | | | 2011 | | Conversion Location | [address] | | | | | [address] | [place] [address] [place], | | | | | [place], [place] | [place] [address] | | | | | [address] | [phone] | | | | | [phone] | | | +--------+ + + + [...] | | | | | | [place] [address] | | | | | | [phone] | | | | | | | | +--------+---------+ + + + documented as of this encounter Visit Diagnoses Not on filedocumented in this encounter"
--- OUTSIDE RECORDS SUMMARY | ~2020-08-30 | XMS | Encounter Summary ---
Demographics + + + | Address | [address] | | | [place] [address] | + + + | Home Phone [...] [place] | | | | | [address] | | + + + + + | Floyd Herndon | ECON | NA | | | | | NA, | | + + + + + Care Team Providers + +------+ + | Care Full Stack Engineer Name | Role | Phone | + +------+ + | Beltran Fields MD | PCP | | + +------+ + Reason for Visit + +--------+ + | Reason | Onset | Comments | | | Date | | + +--------+ + | Lab Order | 06/17/ | | | | 2014 | | + +--------+ + Encounter Details +--------+ + + + + | Date | Type | Department | Care Team | Description | +--------+ + + + + | 06/17/ | Telephone | [facility] | Beltran Fields, | Lab Order | | 2014 | | MEDICINE [address] | [address] | | | | | [address] [place], | [place] [address] [place], | | | | | [place] [address] | [place] [address] | | | | | [phone] | [phone] | | | | | | | [...] Telephone Encounter - Hien Grace RN - 06/18/2015 4:49 PM PDTPatient returned phon e call and was given the message to repeat the CBC. elephone Encounter - Hien Grace RN - 06/17/2015 3 :[address] Fields, patient to have repeat CBC in 6 weeks. Order sent to Marlene hamm in [place], [place]. Left message on voice mail for patient to call to inform. documented in this encounter Plan of Treatment +--------+---------+ + + + | Date | Type | Specialty | Care Team | Description | +--------+---------+ + + + | 11/05/ | Office | Cardiology | Cristiano Stout, | | | 2019 | Visit | | MD [address] | | | | | | [place], | | | | | | [place] [address] | | | | | | [phone] | | | | | | | | +--------+---------+ + + + documented as of this encounter Visit Diagnoses Not on filedocumented in this encounter"
--- OUTSIDE RECORDS SUMMARY | ~2020-08-30 | XMS | Encounter Summary ---
Demographics + + + | Address | [address] | | | [place] [address] | + + + | Home Phone [...] [place] | | | | | [address] | | + + + + + | Floyd Herndon | ECON | NA | | | | | NA, | | + + + + + Care Team Providers + +------+ + | Care Hydraulic Jack Mechanic Name | Role | Phone | + +------+ + | Beltran Fields MD | PCP | | + +------+ + Encounter Details +--------+ + + + + | Date | Type | Department | Care Team | Description | +--------+ + + + + | 11/21/ | Orders Only | [facility] | Jordin Padron, | Elevated prostate | | 2013 | | [address] | MD [address] | specific antigen | | | | [place], [place] | [place] | (PSA) (Primary Dx); | | | | [address] | [address] | Family history of | | | | [phone] | | prostate cancer | +--------+ + + + + Social [...] DR | | | | | | [place], | | | | | | [place] [address] | | | | | | [phone] | | | | | | | | +--------+---------+ + + + documented as of this encounter Visit Diagnoses + + | Diagnosis | + + | Elevated prostate specific antigen (PSA) - Primary | + + | Family history of prostate cancer Family history of malignant neoplasm of prostate | + + documented in this encounter"
--- OUTSIDE RECORDS SUMMARY | ~2020-08-30 | XMS | Encounter Summary ---
Demographics + + + | Address | [address] | | | [place] [address] | + + + | Home Phone [...] [place] | | | | | [address] | | + + + + + | Floyd Herndon | ECON | NA | | | | | NA, | | + + + + + Care Team Providers + +------+ + | Care Train Master Name | Role | Phone | + [...] + + | 01/28/ | Office | [facility] | Beltran Fields, | Other iron | | 2016 | Visit | MEDICINE [address] | [address] | deficiency anemia | | | | [address] [place], | [place] [address] [place], | (Primary Dx); | | | | [place] [address] | [place] [address] | Essential | | | | [phone] | [phone] | hypertension, | | | | | | benign; Paroxysmal | | | | | | a-fib; Other | | | | | | hyperlipidemia; Type | | | | | | 2 diabetes mellitus | | | | | | with hyperglycemia | | | | | | ([facility]); Other | | | | | | [...] develop hiccups. He is continuing to follow juan Padron. HTN has been fine, checks it [...] bid per Cardiology Taylor Luevano MD in [place]. 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 He lives in [place], [place]. 9 living Grandchildren. Review of Systems [...] [place], | | | | | | [place] [address] | | | | | | [phone] | | | | | | | | +--------+---------+ + + + documented as of this encounter Procedures + +--------+ + + + | Procedure Name | Priori | Date/Time | Associated Diagnosis | Comments | | | ty | | | | + +--------+ + + + | LABS - EXTERNAL SCAN | | 01/15/2016 | | | | | | 12:00 AM | | | | | | PST | | | + +--------+ + + + | LABS - EXTERNAL SCAN | | 12/06/2015 | | | | | | 12:00 AM | | | | | | PST | | | + +--------+ + + [...]
--- OUTSIDE RECORDS SUMMARY | ~2020-08-30 | XMS | Encounter Summary ---
Demographics + + + | Address | [address] | | | [place] [address] | + + + | Home Phone | | + + + | Preferred Language | Unknown | + + + | Marital Status | | + + + | Episcopalian Affiliation | 1009 | + + + | Race | White | + + + | Ethnic Group | Not or | + + + Author + + + | Author | [facility] | | | and [place] | + + + | Organization | [facility] | [...] [place] | | | | | [address] | | + + + + + | Floyd Herndon | ECON | NA | | | | | NA, | | + + + + + Care Team Providers + +------+ + | Care Student Truck Driver Name | Role | Phone | + +------+ + | Beltran Fields MD | PCP | | + +------+ + Reason for Visit +--------+--------+ + | Reason | Onset | Comments | | | Date | | +--------+--------+ + | Other | 03/02/ | | | | 2012 | | +--------+--------+ + Encounter Details +--------+ + + + + | Date | Type | Department | Care Team | Description | +--------+ + + + + | 03/02/ | Telephone | [facility] | Beltran Fields, | Other | | 2012 | | MEDICINE [place] | [address] | | | | | [address] | [place] [address] [place], | | | | | [place] | [place] [address] | | | | | [address] | [phone] | | | | | [phone] | | | +--------+ + + + [...] this encounter Miscellaneous Notes Telephone Encounter - Mirian Neri - 03/02/2013 4:28 [address] PDTDr. Fields reviewed pt 's L. Knee xray taken at [facility] in [place], [place] on 01/26/2013. Dr. Fields requested that pt return to clinic to review these results. Pt. Advised that he sachin briggs have to call back to schedule as he cannot get time off from work at this time. Mirian Neri CMA documented in this e ncounter Plan of Treatment +--------+---------+ + + + | Date | Type | Specialty | Care Team | Description | +--------+---------+ + + + | 11/05/ | Office | Cardiology | Cristiano Stout, | | | 2019 | Visit | | MD [address] | | | | | | [place], | | | | | | [place] [address] | | | | | | [phone] | | | | | | | | +--------+---------+ + + + documented as of this encounter Visit Diagnoses Not on filedocumented in this encounter"
--- OUTSIDE RECORDS SUMMARY | ~2020-08-30 | XMS | Encounter Summary ---
Demographics + + + | Address | [address] | | | [place] [address] | + + + | Home Phone [...] [place] | | | | | [address] | | + + + + + | Floyd Herndon | ECON | NA | | | | | NA, | | + + + + + Care Team Providers + +------+ + | Care Spinning Frame Fixer Name | Role | Phone | + +------+ + | Beltran Fields MD | PCP | | + +------+ + Reason for Visit +--------+--------+ + | Reason | Onset | Comments | | | Date | | +--------+--------+ + | Other | 01/28/ | | | | 2015 | | +--------+--------+ + Encounter Details +--------+ + + + + | Date | Type | Department | Care Team | Description | +--------+ + + + + | 01/28/ | Telephone | [facility] | Geronimo Iglesias PA | Other | | 2015 | | SLEEP DISORDER [address] | [address] | | | | | [address] [place] | [place] | | | | | [place] [address] | [address] | | | | | [phone] | | | +--------+ + + + [...] this encounter Miscellaneous Notes Telephone Encounter - Violeta Munoz CMA - 03/11/2016 2:13 PM PDTLeft voice message f or patient to call our office to schedule 3 year follow up. elephone Encounter - Violeta Munoz CMA - 8:11 AM PDTSpoke with patient he stated that Geronimo Iglesias said that if he was doing o k with CPAP then he could stretch it out further than 2 years, explained to patient that it has been 3 years and he would need to have a follow up visit to get new RX for supplies. Saniya hope said he would look at his calender and call back to schedule appointment. Electronicall y signed by Violeta Munoz CMA at 02/27/2016 8:15 AM PDTTelephone Encounter - Violeta Munoz CMA - 02/18/2016 2:30 PM PDTLeft voice message for patient to call our office to reschedule no show appointment.Electronically signed by Violeta Munoz CMA at 6 2:32 PM PDTTelephone Encounter - Paola Gallegos Security Incident Response Engineer - 01/29/2016 9:41 AM PDTCalled left voice mail regarding needing to set up a two year follow up appointment with Morris Campbell. 9:4 2 AM PDTdocumented in this encounter Plan of Treatment +--------+---------+ + + + | Date | Type | Specialty | Care Team | Description | +--------+---------+ + + + | 11/05/ | Office | Cardiology | Cristiano Stout, | | | 2020 | Visit | | [address] | | | | | | [place], | | | | | | [place] [address] | | | | | | [phone] | | | | | | | | +--------+---------+ + + + documented as of this encounter Visit Diagnoses Not on filedocumented in this encounter"
--- OUTSIDE RECORDS SUMMARY | ~2020-08-30 | XMS | Encounter Summary ---
Demographics + + + | Address | [address] | | | [place] [address] | + + + | Home Phone [...] | Author | [facility] | | | and [place] | + + + | Organization | [facility] | | | and [...] [place] | | | | | [address] | | + + + + + | Floyd Herndon | ECON | NA | | | | | NA, | | + + + + + Care Team Providers + +------+ + | Care Loose Hand Packer Name | Role | Phone | + +------+ + PCP | Unavailable | + +------+ + Encounter Details +--------+ + + + + | Date | Type | Department | Care Team | Description | +--------+ + + + + | 10/19/ | Hospital | [facility] | Sridhar Corona | | | 2000 | Encounter | MED CTR SLEEP | MD Juan [address] | | | | | [place] [address] | [address] [place] | | | | | [place], [place] | [place] [address] | | | | | [address] | [phone] | | | | | [phone] | | | +--------+ + + + [...] | | | | | | [place] [address] | | | | | | [phone] | | | | | | | | +--------+---------+ + + + documented as of this encounter Visit Diagnoses Not on filedocumented in this encounter"
--- OUTSIDE RECORDS SUMMARY | ~2020-08-30 | XMS | Encounter Summary ---
Demographics + + + | Address | [address] | | | [place] [address] | + + + | Home Phone [...] Author | [facility] | | | and [place] | + + + | Organization | [facility] | | | [...] [place] | | | | | [address] | | + + + + + | Floyd Herndon | ECON | NA | | | | | NA, | | + + + + + Care Team Providers + +------+ + | Care C D Stripper Name | Role | Phone | + [...] [address] | [address] | Dx) | | | | [address] [place], | [place] [address] [place], | | | | | [place] [address] | [place] [address] | | | | | [phone] | [phone] | | | | | | | [...] | | | | | | [place] [address] | | | | | | [phone] | | | | | | | [...]
--- OUTSIDE RECORDS SUMMARY | ~2020-08-30 | XMS | Encounter Summary ---
Demographics + + + | Address | [address] | | | [place] [address] | + + + | Home Phone [...] [place] | | | | | [address] | | + + + + + | Floyd Herndon | ECON | NA | | | | | NA, | | + + + + + Care Team Providers + +------+ + | Care Anhydrous Ammonia Production Supervisor Name | Role | Phone | [...] | 08/26/ | Refill | [facility] [place] [facility] | Beltran Fields, | Medication Refill | | 2018 | | MEDICINE [address] | MD [address] | | | | | [address] [place], | [place] [address] [place], | | | | | [place] [address] | [place] [address] | | | | | [phone] | [phone] | | | | | | | [...] this encounter Miscellaneous Notes Telephone Encounter - Liz Fuentes RN - 08/26/2018 4:50 PM PDTLast seen 02/08/18 No pending appointment Most recent labs 03/04/18 (external scan dated 03/05/17 apparently in error) Rx pended for Dr. Fields's approval- visits are outside refill protocol Please advise when patient needs next appointment documented in this e ncounter Plan of [...] | | | | | | [place] [address] | | | | | | [phone] | | | | | | | | +--------+---------+ + + + documented as of this encounter Visit Diagnoses Not on filedocumented in this encounter"
--- OUTSIDE RECORDS SUMMARY | ~2020-08-30 | XMS | Encounter Summary ---
Demographics + + + | Address | [address] | | | [place] [address] | + + + | Home Phone | | + + + | Preferred Language | Unknown | + + + | Marital Status | | + + + | Uatsdin Affiliation | Unknown | + + + [...] | Yuliet Ma | ECON | [address] [facility] | | | | | [place] | | | | | [address] | | + + + + + Care Team Providers + +------+ + | Care Defective Cigarette Slitter Name | Role | Phone | + [...] as of this encounter Progress Notes Interface, Substation Design Draftsperson In - 12/24/2005 2:08 AM PST [id number] 12/22/2005 12/22/2005 [id number] KEVIN Pearson [place] [id number] [facility] [place] [address] or December 22, 2005 Shiva Hayward M.D. [facility] [place] [address] RE: AWAIS BROWN MR #: [id number] Dear Dr. Hayward: Thank you for referring [...] Sincerely, Jonathon Mills M.D. Brandie Guerrero M.D. RUDDY / SUN [id number] / [id number] / [id number] / documented i n this encounter Plan of Treatment Not on filedocumented as of this encounter Visit Diagnoses Not on filedocumented in this encounter"
--- OUTSIDE RECORDS SUMMARY | ~2020-08-30 | XMS | Encounter Summary ---
Demographics + + + | Address | [address] | | | [place] [address] | + + + | Home Phone [...] + | Author | [facility] | | | and [place] | + + + | Organization | [facility] | | | [...] [place] | | | | | [address] | | + + + + + | Floyd Herndon | ECON | NA | | | | | NA, | | + + + + + Care Team Providers + +------+ + | Care Metal Furniture Repairer Name | Role | Phone | [...] | 12/02/ | Refill | [facility] [place] [facility] | Beltran Fields, | Medication Refill | | 2017 | | MEDICINE [address] | MD [address] | | | | | [place], | [place] [address] [place], | | | | | [place] [address] | [place] [address] | | | | | [phone] | [phone] | | | | | | | [...] | | | | | | [place] [address] | | | | | | [phone] | | | | | | | | +--------+---------+ + + + documented as of this encounter Visit Diagnoses Not on filedocumented in this encounter"
--- OUTSIDE RECORDS SUMMARY | ~2020-08-30 | XMS | Encounter Summary ---
Demographics + + + | Address | [address] | | | [place] [address] | + + + | Home Phone [...] | Author | [facility] | | | and [place] | + + + | Organization | [facility] | | [...] [place] | | | | | [address] | | + + + + + | Floyd Herndon | ECON | NA | | | | | NA, | | + + + + + Care Team Providers + +------+ + | Care Buyer Internship Name | Role | Phone | [...] + + | 02/07/ | Office | [facility] [place] [facility] | Geronimo Iglesias PA | JEAN on CPAP (Primary | | 2019 | Visit | SLEEP DISORDER [address] | [address] | Dx) | | | | [address] | [place] | | | | | [place] [address] | [address] | | | | | [phone] | | | +--------+---------+ + + + [...] + documented in this encounter Progress Notes Geronimo Iglesias PA - 02/07/2019 2:00 PM PDT Subjective: Patient ID: Guy Thurman is a 73 y.o. male. HPI last office visit: 04/21/2016 date of polysomnography: 10/19/2001 AHI: 15.3 RDI: O2%: 87.8% Machine type: ResMed AirSense 10 Mask type: nasal mask DME: [facility] [place] pressure: 8-16 cm Median: 10.2 cm 95%: [...] a full face mask, such as a ResMed F20 full face mask, Respironics DreamWear full face mask or Respiron ics [...] /m Assessment: Problem #1: OBSTRUCTIVE SLEEP APNEA ([id number]) This is controlled with CPAP. His CPAP compliance is going well, but he has many mornings that he wakes with a dry mouth. Plan: 1. He is to continue with CPAP indefinitely. 2. He is to go to [facility] [place] to get a full face mask . 3. Touch base with medical supplier twice per year to ensure that all equipment is satisfa ctory. I will follow up again in 2 years, sooner prn. Fifteen minutes were spent [id number], wi th the majority of time spent in counseling. Geronimo Iglesias PA-C cc: Beltran Fields MD [facility] As sistant - 02/07/2019 2:00 PM PDTFormatting of this note might be different from the origina l. 02/07/19 1300 Lopez Depression Inventory-II Depression Score 5 - Minimal depression Insomnia Severity Index Insomnia Severity Index 15 [place] Sleepiness Scale 1. Sitting and reading 3 [...] | | | | | | [place] [address] | | | | | | [phone] | | | | | | (Fax) | | +--------+---------+ + + + documented as of this encounter Visit Diagnoses + + | Diagnosis | + + | JEAN on CPAP - Primary Obstructive sleep apnea (adult) (pediatric) | + + documented in this encounter"
--- OUTSIDE RECORDS SUMMARY | ~2020-08-30 | XMS | Encounter Summary ---
Demographics + + + | Address | [address] | | | [place] [address] | + + + | Home Phone | | + + + | Preferred Language | Unknown | + + + | Marital Status | | + + + | Druze Affiliation | 1009 | + + + | Race | White | + + + | Ethnic Group | Not or | + + + Author + + + | Author | [facility] | | | and [place] | + + + | Organization | [facility] | | [...] [place] | | | | | [address] | | + + + + + | Floyd Herndon | ECON | NA | | | | | NA, | | + + + + + Care Team Providers + +------+ + | Care Wrecking Crane Engine Operator Name | Role | Phone | [...] + + | 02/22/ | Office | [facility] | Beltran Fields, | Type 2 diabetes | | 2019 | Visit | MEDICINE POTH | [address] | mellitus with | | | | [address] | [place] [address] [place], | hyperglycemia, | | | | [place] | [place] [address] | without long-term | | | | [address] | [phone] | current use of | | | | [phone] | | insulin (HCC) | | | [...] per Cardiology Dr Niranjan Luevano MD in [facility]. 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 He lives in [place], [place]. 9 living Grandchildren. Patient's medications, allergies, [...] | | | | | | [place] [address] | | | | | | [phone] | | | | | | | [...] | | | | | | insulin ([facility]) | | + +------+--------+ + [...]
--- OUTSIDE RECORDS SUMMARY | ~2020-08-30 | XMS | Encounter Summary ---
Demographics + + + | Address | [address] | | | [place] [address] | + + + | Home Phone [...] | [facility] | | | and [place] | + + + | Organization | [facility] | | | and [...] [place] | | | | | [address] | | + + + + + | Floyd Herndon | ECON | NA | | | | | NA, | | + + + + + Care Team Providers + +------+ + | Care Desktop Support Associate Name | Role | Phone | + +------+ + | Beltran Fields MD | PCP | | + +------+ + Reason for Visit + +--------+ + | Reason | Onset | Comments | | | Date | | + +--------+ + | Appointment | 03/27/ | | | | 2012 | | + +--------+ + Encounter Details +--------+ + + + + | Date | Type | Department | Care Team | Description | +--------+ + + + + | 03/27/ | Telephone | [facility] | Sridhar John | Appointment | | 2012 | | ORTHOPEDIC SURGERY | MD [address] | | | | | [address] | [place] | | | | | [place] | [address] | | | | | [address] | | | | | | [phone] | | | +--------+ + + + [...] this encounter Miscellaneous Notes Telephone Encounter - Pawel Matute - 03/27/2013 4:51 PM PDTPatient needs to schedyvan zavala an DOMINATRIX appointment with Alvaro. Paperwork is placed in the file. documented in this encounter Plan of Treatment +--------+---------+ + + + | Date | Type | Specialty | Care Team | Description | +--------+---------+ + + + | 11/05/ | Office | Cardiology | Cristiano Stout, | | | 2019 | Visit | | MD [address] | | | | | | [place], | | | | | | [place] [address] | | | | | | [phone] | | | | | | | | +--------+---------+ + + + documented as of this encounter Visit Diagnoses Not on filedocumented in this encounter"
--- OUTSIDE RECORDS SUMMARY | ~2020-08-30 | XMS | Encounter Summary ---
Demographics + + + | Address | [address] | | | [place] [address] | + + + | Home Phone [...] [place] | | | | | [address] | | + + + + + | Floyd Herndon | ECON | NA | | | | | NA, | | + + + + + Care Team Providers + +------+ + | Care Advertising Sales Consultant Name | Role | Phone | + +------+ + | Beltran Fields MD | PCP | | + +------+ + Reason for Visit + +--------+ + | Reason | Onset | Comments | | | Date | | + +--------+ + | Appointment | 12/13/ | | | | 2017 | | + +--------+ + Encounter Details +--------+ + + + + | Date | Type | Department | Care Team | Description | +--------+ + + + + | 12/13/ | Telephone | [facility] | Beltran Fields, | Appointment | | 2017 | | MEDICINE [address] | [address] | | | | | [address]VE [place], | [address] [place], | | | | | [place] [address] | [place] [address] | | | | | [phone] | [phone] | | | | | | | [...] Telephone Encounter - Hien Grace RN - 12/17/2017 10:40 AM PSTScheduled and notifmora d patient of time and date. 10:4 0 AM PSTTelephone Encounter - Eloise Spiecr RN - 12/14/2017 9:40 AM PSTHe could be hector eduled at the 1300 slot on a Wednesday afternoon, so please go ahead and schedule him.Electron amosy signed by Eloise Spicer RN at 12/14/2017 9:41 AM PSTTelephone Encounter - Mely Wheeler - 12/13/2017 3:59 PM PSTRoger is needing his annual medicare wellness exam. His la st one was 02/02/2017 so he is needing this any time after that date however he needs this t o be on a Wednesday. Patient is looking to see if can accommodate him. Please adv ise documented in this encou nter Plan of Treatment +--------+---------+ + + + | Date | Type | Specialty | Care Team | Description | +--------+---------+ + + + | 11/05/ | Office | Cardiology | Cristiano Stout, | | | 2019 | Visit | | [address] | | | | | | [place], | | | | | | [place] [address] | | | | | | [phone] | | | | | | | | +--------+---------+ + + + documented as of this encounter Visit Diagnoses Not on filedocumented in this encounter"
--- OUTSIDE RECORDS SUMMARY | ~2020-08-30 | XMS | Encounter Summary ---
Demographics + + + | Address | [address] | | | [place] [address] | + + + | Home Phone | | + + + | Preferred Language | Unknown | + + + | Marital Status | | + + + | Adventism Affiliation | 1009 | + + + [...] [place] | | | | | [address] | | + + + + + | Floyd Herndon | ECON | NA | | | | | NA, | | + + + + + Care Team Providers + +------+ + | Care National Stormwater Leader Name | Role | Phone | + +------+ + | Beltran Fields MD | PCP | | + +------+ + Reason for Visit + +--------+ + | Reason | Onset | Comments | | | Date | | + +--------+ + | Medication Refill | 11/16/ | | | | 2013 | | + +--------+ + Encounter Details +--------+--------+ + + + | Date | Type | Department | Care Team | Description | +--------+--------+ + + + | 11/16/ | Refill | [facility] [place] [facility] | Beltran Fields, | Medication Refill | | 2013 | | MEDICINE [address] | [address] | | | | | [address] [place], | [address] [place], | | | | | [place] [address] | [place] [address] | | | | | [phone] | [phone] | | | | | | | [...] | | | | | | [place] [address] | | | | | | [phone] | | | | | | | | +--------+---------+ + + + documented as of this encounter Visit Diagnoses + + | Diagnosis | + + | Hyperlipidemia - Primary Other and unspecified hyperlipidemia | + + documented in this encounter"
--- OUTSIDE RECORDS SUMMARY | ~2020-08-30 | XMS | Encounter Summary ---
Demographics + + + | Address | [address] | | | [place] [address] | + + + | Home Phone [...] [place] | | | | | [address] | | + + + + + | Floyd Herndon | ECON | NA | | | | | NA, | | + + + + + Care Team Providers + +------+ + | Care Coach Driver Name | Role | Phone | + +------+ + | Beltran Fields MD | PCP | | + +------+ + Encounter Details +--------+ + + + + | Date | Type | Department | Care Team | Description | +--------+ + + + + | 01/28/ | Orders Only | [facility] [place] [facility] | Beltran Fields, | Hematuria (Primary | | 2016 | | MEDICINE [address] | [address] | Dx); Other | | | | AVE [place], | [place] [address] [place], | hyperlipidemia; | | | | [place] [address] | [place] [address] | Other iron | | | | [phone] | [phone] | deficiency anemia | | | | | | | [...] + documented as of this encounter Progress Constance Tolentino RN - 01/29/2016 2:21 PM [place] [place], lab orders to be sent to Marlene gomez. Orders entered in [facility] and sent to front to be faxed to Marlene Samuels per . documented in this enco unter Plan of [...] | | | | | | [place] [address] | | | | | | [phone] | | | | | | | | +--------+---------+ + + + + +------+--------+ + + | Name | Type | Priori | Associated Diagnoses | Order Schedule | | | | ty | | | + +------+--------+ + + | CBC with | Lab | Routin | Other iron | 1 Occurrences | | Differential | | e | deficiency anemia | starting 01/29/2016 | | | | | | until 01/28/2017 | + +------+--------+ + + | Comprehensive | Lab | Routin | Other iron | 1 Occurrences | | Metabolic Panel | | e | deficiency anemia | starting 01/29/2016 | | | | | | until 01/28/2017 | + +------+--------+ + + | Lipid Panel | Lab | Routin | Other | 1 Occurrences | | | | e | hyperlipidemia | starting 01/29/2016 | | | | | | until 01/28/2017 | + +------+--------+ + + | Urinalysis with | Lab | Routin | Hematuria | Expected: | | Microscopic with | | e | | 01/29/2016, Expires: | | Culture if Indicated | | | | 01/28/2017 | + +------+--------+ + + documented as of this encounter Visit Diagnoses + + | Diagnosis | + + | Hematuria - Primary Hematuria, unspecified | + + | Other hyperlipidemia | + + | Other iron deficiency anemia | + + documented in this encounter"
--- OUTSIDE RECORDS SUMMARY | ~2020-08-30 | XMS | Encounter Summary ---
Demographics + + + | Address | [address] | | | [place] [address] | + + + | Home Phone [...] Author | [facility] | | | and [place] | + + + | Organization | [facility] | | | and [place] | + [...] [place] | | | | | [address] | | + + + + + | Floyd Herndon | ECON | NA | | | | | NA, | | + + + + + Care Team Providers + +------+ + | Care Tallier Name | Role | Phone | + +------+ + | Beltran Fields MD | PCP | | + +------+ + Reason for Visit + +--------+ + | Reason | Onset | Comments | | | Date | | + +--------+ + | Medication Refill | 05/27/ | | | | 2016 | | + +--------+ + Encounter Details +--------+--------+ + + + | Date | Type | Department | Care Team | Description | +--------+--------+ + + + | 05/27/ | Refill | [facility] [place] [facility] | Beltran Fields, | Medication Refill | | 2016 | | MEDICINE [address] | [address] | | | | | [address]VE [place], | [address] [place], | | | | | [place] [address] | [place] [address] | | | | | [phone] | [phone] | | | | | | | [...] | | | | | | [place] [address] | | | | | | [phone] | | | | | | | | +--------+---------+ + + + documented as of this encounter Visit Diagnoses + + | Diagnosis | + + | Gout, unspecified cause, unspecified chronicity, unspecified site | + + documented in this encounter"
--- OUTSIDE RECORDS SUMMARY | ~2020-08-30 | XMS | Encounter Summary ---
Demographics + + + | Address | [address] | | | [place] [address] | + + + | Home Phone [...] [place] | | | | | [address] | | + + + + + | Floyd Herndon | ECON | NA | | | | | NA, | | + + + + + Care Team Providers + +------+ + | Care Gun Stock Maker Name | Role | Phone | [...] + | 07/26/ | Office | [facility] | Beltran Fields, | Hyperlipidemia | | 2013 | Visit | MEDICINE [address] | MD [address] | (Primary Dx); | | | | AVE [place], | [place] [address] [place], | Elevated PSA; Atrial | | | | [place] [address] | [place] [address] | fibrillation (HCC); | | | | [phone] | [phone] | Paroxysmal a-fib; | | | | [...] per Cardiology Dr Niranjan Luevano MD in [place]. He underwent a stressecho test this january [...] child and 3 stepchildren. He lives in [place], [place]. 9 living Grandchildren. Review of Systems [...] He will [facility] GTT[facility] . documented in this encounter Miscellaneous Notes Miscellaneous - ONBASE SCAN PRERNA - 07/26/2014 12:00 AM PDT documented in this encounter Plan of Treatment +--------+---------+ + + + | Date | Type | Specialty | Care Team | Description | +--------+---------+ + + + | 11/05/ | Office | Cardiology | Cristiano Stout, | | | 2019 | Visit | | [address] | | | | | | [place], | | | | | | [place] [address] | | | | | | [phone] | | | | | | | | +--------+---------+ + + + documented as of this encounter Results CBC with Differential (07/26/2014 4:04 PM PDT) + +-------+ + + + | Component | Value | Ref Range | Performed | Pathologist | | | | | At | Signature | + +-------+ + + + | White Blood | 8.3 | 4.0 - 11.0 K/uL | [facility] | | | Cells | | | [facility] | | | | | | MEDICAL | | | | | | CENTER - | | | | | | LABORATORY | | + +-------+ + + + | Red Blood | 5.06 | 4.30 - 5.70 | [facility] | | | Cells | | M/uL | [facility] | [...] | | | Eosinophils | | | [facility] | | [...] | Neutrophils | | K/uL | [facility] | | | | | | MEDICAL | | | | | | CENTER - | | | | | | LABORATORY | | + +-------+ + + + | Absolute | 2.70 | 0.60 - 3.20 | [facility] | | | Lymphocytes | | K/uL | [facility] | | | | | | MEDICAL | | | | | | CENTER - | | | | | | LABORATORY | | + +-------+ + + + | Absolute | 0.70 | 0.00 - 1.00 | [facility] | | | Monocytes | | K/uL | [facility] | | | | | | MEDICAL | | | | | | CENTER - | | | | | | LABORATORY | | + +-------+ + + + | Absolute | 0.30 | 0.00 - 0.40 | [facility] | | | Eosinophils | | K/uL | [facility] | | | | [...] + | [facility] | [address] | [place], [place] | [phone] | | [facility] | | [address] | | | - LABORATORY | | | | + + + + + | [facility] | [address] | [place], [place] | | | [facility] | | [address], [facility] | | | - LABORATORY [...] 29 | 24 - 31 mmol/L | [facility] | | | | | [...] | non- | FILTRATION | mL/min/1.73m2 | [facility] | | | [place] | RATE,ESTIMATED | | MEDICAL | | | | mL/min/1.23y3Ayla than | | CENTER - | | [...] + | [facility] | [address] | [place] | [phone] | | [facility] | | [address] | | | - LABORATORY | | | | + + + + + | [facility] | [address] | [place] | | | [facility] | | [address], [facility] | | | - LABORATORY | | | | + + + + + PSA, Diagnostic (07/26/2014 4:04 PM PDT) + + + + + + | Component | Value | Ref Range | Performed | Pathologist | | | | | At | Signature | + + + + + + | PSA | 10.65 (H) | <=4.00 ng/mL | [facility] | | | | | | ST. [...] + | [facility] | [address] | [place] | [phone] | | [facility] | | [address] | | | - LABORATORY | | | | + + + + + | [facility] | [address] | [place], [place] | | | [facility] | | [address] | | | - LABORATORY [...]
--- OUTSIDE RECORDS SUMMARY | ~2020-08-30 | XMS | Encounter Summary ---
Demographics + + + | Address | [address] | | | [place] [address] | + + + | Home Phone [...] | Author | [facility] | | | and [place] | + + + | Organization | [facility] | | | [...] [place] | | | | | [address] | | + + + + + | Floyd Herndon | ECON | NA | | | | | NA, | | + + + + + Care Team Providers + +------+ + | Care Correctional Nurse Name | Role | Phone | + +------+ + | Beltran Fields MD | PCP | | + +------+ + Reason for Visit + +--------+ + | Reason | Onset | Comments | | | Date | | + +--------+ + | Atrial Fibrillation | 08/18/ | | | | 2011 | | + +--------+ + Encounter Details +--------+ + + + + | Date | Type | Department | Care Team | Description | +--------+ + + + + | 08/18/ | Telephone | [facility] [place] | Teresa Blum, | Atrial Fibrillation | | 2011 | | CARDIOLOGY [address] | RN | | | | | [place], | | | | | | [place] [address] | | | | | | [phone] | | | +--------+ + + + [...] this encounter Miscellaneous Notes Telephone Encounter - Teresa Blum RN - 08/18/2012 2:50 PM PDTRoger called asking to go ahead and schedule for an admit to start an anti arythmic like Dr Ferro talked about at hi s last visit. Guy only has 09/08 and 09/[address] Ferro and he is will ing to see Guy on 09/08 and then admit him on 09/09. Guy is notified but declines due t o the timing of the appointments. He has an appt with his PCP, Dr Fields on 09/08 at 9am a nd the appt with Dr Ferro would be at 2pm, he felt that was too long to wait around in [place] and since he feels he is really not that symptomatic he would just wait until his rout ine yearly check up and try to coordinate an admit at that time. documented in this encounter Plan of Treatment +--------+---------+ + + + | Date | Type | Specialty | Care Team | Description | +--------+---------+ + + + | 11/05/ | Office | Cardiology | Cristiano Stout, | | | 2019 | Visit | | MD [address] | | | | | | [place], | | | | | | [place] [address] | | | | | | [phone] | | | | | | | | +--------+---------+ + + + documented as of this encounter Visit Diagnoses Not on filedocumented in this encounter"
--- OUTSIDE RECORDS SUMMARY | ~2020-08-30 | XMS | Encounter Summary ---
Demographics + + + | Address | [address] | | | [place] [address] | + + + | Home Phone [...] Author | [facility] | | | and [place] | + + + | Organization | [facility] | | | [...] [place] | | | | | [address] | | + + + + + | Floyd Herndon | ECON | NA | | | | | NA, | | + + + + + Care Team Providers + +------+ + | Care Manager Laundry Name | Role | Phone | + +------+ + | Beltran Fields MD | PCP | | + +------+ + Reason for Visit +--------+--------+ + | Reason | Onset | Comments | | | Date | | +--------+--------+ + | Other | 05/08/ | | | | 2015 | | +--------+--------+ + Encounter Details +--------+ + + + + | Date | Type | Department | Care Team | Description | +--------+ + + + + | 05/08/ | Telephone | [facility] | Beltran Fields, | Other | | 2015 | | MEDICINE [address] | MD [address] | | | | | [place], | [address] [place], | | | | | [place] [address] | [place] [address] | | | | | [phone] | [phone] | | | | | | | [...] Telephone Encounter - Constance Morgan RN - 05/08/2016 2:38 PM PDTInter[facility] in [place] called to have lab orders faxed over-completed the same. documented in this encounter Plan of Treatment +--------+---------+ + + + | Date | Type | Specialty | Care Team | Description | +--------+---------+ + + + | 11/05/ | Office | Cardiology | Cristiano Stout, | | | 2019 | Visit | | MD [address] | | | | | | [place], | | | | | | [place] [address] | | | | | | [phone] | | | | | | | | +--------+---------+ + + + documented as of this encounter Visit Diagnoses Not on filedocumented in this encounter"
--- OUTSIDE RECORDS SUMMARY | ~2020-08-30 | XMS | Encounter Summary ---
Demographics + + + | Address | [address] | | | [place] [address] | + + + | Home Phone [...] [place] | | | | | [address] | | + + + + + | Floyd Herndon | ECON | NA | | | | | NA, | | + + + + + Care Team Providers + +------+ + | Care Purchasing And Fiscal Clerk Name | Role | Phone | + +------+ + | Beltran Fields MD | PCP | | + +------+ + Reason for Visit + +--------+ + | Reason | Onset | Comments | | | Date | | + +--------+ + | Medication Refill | 12/02/ | | | | 2016 | | + +--------+ + Encounter Details +--------+--------+ + + + | Date | Type | Department | Care Team | Description | +--------+--------+ + + + | 12/02/ | Refill | [facility] [place] [facility] | Beltran Fields, | Medication Refill | | 2016 | | MEDICINE [address] | [address] | | | | | [address]VE [place], | [address] [place], | | | | | [place] [address] | [place] [address] | | | | | [phone] | [phone] | | | | | | | [...] | | | | | | [place] [address] | | | | | | [phone] | | | | | | | | +--------+---------+ + + + documented as of this encounter Visit Diagnoses + + | Diagnosis | + + | Paroxysmal a-fib - Primary Atrial fibrillation | + + documented in this encounter"
--- OUTSIDE RECORDS SUMMARY | ~2020-08-30 | XMS | Encounter Summary ---
Demographics + + + | Address | [address] | | | [place] [address] | + + + | Home Phone [...] [place] | | | | | [address] | | + + + + + | Floyd Herndon | ECON | NA | | | | | NA, | | + + + + + Care Team Providers + +------+ + | Care Crepe Sole Scourer Name | Role | Phone | + +------+ + | Beltran Fields MD | PCP | | + +------+ + Reason for Visit + +--------+ + | Reason | Onset | Comments | | | Date | | + +--------+ + | Appointment | 07/18/ | | | | 2014 | | + +--------+ + Encounter Details +--------+ + + + + | Date | Type | Department | Care Team | Description | +--------+ + + + + | 07/18/ | Telephone | [facility] | Jordin Padron, | Appointment | | 2014 | | [address] | MD [address] | | | | | [place] | [place] | | | | | [address] | [address] | | | | | [phone] | | | +--------+ + + + [...] this encounter Miscellaneous Notes Telephone Encounter - Farrah Sears RN - 09/10/2015 5:23 PM PDTMyChart message sent to patient and orders faxed to [facility]. elephone Encounter - Jordin Padron MD - 09/10/2015 3:26 PM PDTHe can have his PSA level drawn any time between now and one-week prior to his follow-up appoi ntment. elephone Encou nter - Farrah Sears RN - 09/10/2015 8:56 AM PDTOn 08/28/15 Guy read the My Chart m essage I sent on that day. He has not called to schedule a one year follow up appointment (d ue ~09/21/15). I called Dr Thurman to see if he wanted to follow up here or what his plans were and he said he would like to follow up here but his schedule is so busy it's hard for him t o get away. Scheduled at first available 1 pm appointment (NOT on a Wednesday) for 12/10/15. I t old him I'd clarify with Dr Padron the timing of the free and total PSA and let him know via MyChart. elephone Encounter - Farrah Sears RN - 08/28/2015 11:59 AM PDTSent My Chart message. (Records have been scanned from [facility]'s ER and cysto with Dr Maguire in April 2015, as well as [address] Brumfield at [facility]). elephone Encounter - Angelita Guzman - 07/18/2015 2:14 PM PDT Called and left message on voice mail for patient to return call for one year follow up and F &T psa,pvr,aua due 09/21/15 elephone Encounter - Angelita Guzman - 07/18/2015 2:14 PM PDT----- Message from Nano Ordonez CMA sent at 07/17/2015 11:09 PDT ----- Regarding: FW: 1 yr f/u Needs one year follow up visit with a free and total PSA drawn prior to his followup visit, and a repeat urinalysis, PVR, AUA symptom score. DUE 09/21/15. ##Need to research chart-parth ent was going to be seen by Dr Brumfield in September 2014##LC ----- Message ----- From: Farrah Sears RN Sent: 07/16/2015 To: [facility] Clinical Staff Subject: 1 yr f/u Needs one year follow up visit with a free and total PSA drawn prior to his followup visit, and a repeat urinalysis, PVR, AUA symptom score. DUE 09/21/15. ##Need to research chart-parth ent was going to be seen by Dr Brumfield in September 2014##LC documented in this encou nter Plan of [...] | | | | | | [place] [address] | | | | | | [phone] | | | | | | | | +--------+---------+ + + + documented as of this encounter Visit Diagnoses Not on filedocumented in this encounter"
--- OUTSIDE RECORDS SUMMARY | ~2020-08-30 | XMS | Encounter Summary ---
Demographics + + + | Address | [address] | | | [place] [address] | + + + | Home Phone [...] [place] | | | | | [address] | | + + + + + | Floyd Herndon | ECON | NA | | | | | NA, | | + + + + + Care Team Providers + +------+ + | Care Linux Unix Engineer Name | Role | Phone | + +------+ + PCP | Unavailable | + +------+ + Encounter Details +--------+ + + + + | Date | Type | Department | Care Team | Description | +--------+ + + + + | 12/01/ | Hospital | [facility] | | | | 2005 | Encounter | MED CTR XRAY [address] | | | | | | [place] | | | | | | [place] [address] | | | | | | [phone] | | | +--------+ + + + [...] | | | | | | [place] [address] | | | | | | [phone] | | | | | | | | +--------+---------+ + + + documented as of this encounter Visit Diagnoses Not on filedocumented in this encounter"
--- OUTSIDE RECORDS SUMMARY | ~2020-08-30 | XMS | Encounter Summary ---
Demographics + + + | Address | [address] | | | [place] [address] | + + + | Home Phone [...] | Author | [facility] | | | and [place] | + + + | Organization | [facility] | | | [...] [place] | | | | | [address] | | + + + + + | Floyd Herndon | ECON | NA | | | | | NA, | | + + + + + Care Team Providers + +------+ + | Care Hydro Operator Name | Role | Phone | [...] + + | 12/10/ | Office | [facility] | Jordin Padron, | Weak urinary stream | | 2016 | Visit | [address] | MD [address] | (Primary Dx); Family | | | | [place] | [place] | history of prostate | | | | [address] | [address] | cancer; Erectile | | | | [phone] | | dysfunction due to | | [...] 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 Brumfield in mid April 2015. About 1 week later, he experienced a recurrence of gross hematuria, and Dr. Maguire perform cystoscopy with clot evacuation and fulguration of a single bleeder on 05/05/2015 at [facility]. A younger brother was treated for prostate [...] capsule 4 capsules by mouth at bedtime [place]-3 Fatty Acids (EQL FISH OIL) 1000 MG [...] PCP regarding positive review of syste ms. GONZALEZ BPH SYMPTOM SCORE Not at all Less [...] neck contracture. Treated with TURBNC by Dr. Octaviano murphy J [facility] 2014. PLAN: I discussed with Guy the [...] failed) versus va cuum erection device versus Antler versus penile self injection therapy versus a [...] t is made to edit the content, interventional radiologist errors may occur. documented in this encounter [...] | | | | | | [place] [address] | | | | | | [phone] | | | | | | | [...] | + +--------+ + + + | IMAGING REPORT - | | 12/10/2015 | | | | EXTERNAL SCAN | | 12:00 [...] 1.001 - 1.030 | | | | Angelica, | | | | | | UA, [...]
--- OUTSIDE RECORDS SUMMARY | ~2020-08-30 | XMS | Encounter Summary ---
Demographics + + + | Address | [address] | | | [place] [address] | + + + | Home Phone [...] | [facility] | | | and [place] | + + + | Organization | [facility] | | [...] [place] | | | | | [address] | | + + + + + | Floyd Herndon | ECON | NA | | | | | NA, | | + + + + + Care Team Providers + +------+ + | Care General Practice Name | Role | Phone | + +------+ + | Beltran Fields MD | PCP | | + +------+ + Encounter Details +--------+ + + + + | Date | Type | Department | Care Team | Description | +--------+ + + + + | 02/22/ | Telephone | [facility] [place] [facility] | Beltran Fields, | | | 2019 | | [facility] | [address] | | | | | [address] | [place] [address], | | | | | [place] | [place] [address] | | | | | [address] | [phone] | | | | | [phone] | | | +--------+ + + + [...] encounter Miscellaneous Notes Telephone Encounter - China Valencia - 02/23/2020 12:45 PM PDTLab orders have been faxed to Danelle shah in [place] domorena deshpande in this encounter Plan of Treatment +--------+---------+ + + + | Date | Type | Specialty | Care Team | Description | +--------+---------+ + + + | 11/05/ | Office | Cardiology | Cristiano Stout, | | | 2019 | Visit | | MD [address] | | | | | | [place], | | | | | | [place] [address] | | | | | | [phone] | | | | | | | | +--------+---------+ + + + documented as of this encounter Visit Diagnoses Not on filedocumented in this encounter"
--- OUTSIDE RECORDS SUMMARY | ~2020-08-30 | XMS | Encounter Summary ---
Demographics + + + | Address | [address] | | | [place] [address] | + + + | Home Phone [...] Author | [facility] | | | and [place] | + + + | Organization | [facility] [...] [place] | | | | | [address] | | + + + + + | Floyd Herndon | ECON | NA | | | | | NA, | | + + + + + Care Team Providers + +------+ + | Care Management Developer Name | Role | Phone | + +------+ + | Beltran Fields MD | PCP | | + +------+ + Reason for Visit + +--------+ + | Reason | Onset | Comments | | | Date | | + +--------+ + | Appointment | 03/26/ | | | | 2019 | | + +--------+ + Encounter Details +--------+ + + + + | Date | Type | Department | Care Team | Description | +--------+ + + + + | 03/26/ | Telephone | [facility] | Beltran Fields, | Appointment | | 2019 | | [facility] [place] [facility] | [address] | | | | | MEDICINE [place] | [place] [address] [place], | | | | | [address] | [place] [address] | | | | | [facility] [address] [place], | [phone] | | | | | [place] [address] | | | | | | [phone] | | | +--------+ + + + [...] this encounter Miscellaneous Notes Telephone Encounter - Stephania Fuentes CMA - 03/29/2020 8:24 AM PDTFYIElectronically melida d by Stephania Fuentes CMA at 03/29/2020 8:25 AM PDTTelephone Encounter - Megan Lundberg RN - 03/28/2020 3:17 PM 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 Patient has not yet had a cardiology appointment with Dr. Rizvi for paroxsymal atrial fi brillation. Patient declines appointment at this time.Electronically signed by Megan Lundberg RN at 3:21 PM PDTTelephone Encounter - Jolene Gonzalez - 03/27/2020 1:24 PM PDTLeft voice mail to call office elephone Encounter - Jaelyn Keyes Dry Clipper Tender - 03/26/2020 2:12 PM PDTPlease scheduled appointment per provider to request docu mented in this encounter Plan of Treatment +--------+---------+ + + + | Date | Type | Specialty | Care Team | Description | +--------+---------+ + + + | 11/05/ | Office | Cardiology | Cristiano Stout, | | | 2019 | Visit | | MD [address] | | | | | | [place] | | | | | | [place] [address] | | | | | | [phone] | | | | | | | | +--------+---------+ + + + documented as of this encounter Visit Diagnoses Not on filedocumented in this encounter"
--- OUTSIDE RECORDS SUMMARY | ~2020-08-30 | XMS | Encounter Summary ---
Demographics + + + | Address | [address] | | | [place] [address] | + + + | Home Phone [...] [place] | | | | | [address] | | + + + + + | Floyd Herndon | ECON | NA | | | | | NA, | | + + + + + Care Team Providers + +------+ + | Care Loan Officer Assistant Name | Role | Phone | + +------+ + | Beltran Fields MD | PCP | | + +------+ + Encounter Details +--------+ + + + + | Date | Type | Department | Care Team | Description | +--------+ + + + + | 11/17/ | Patient | [facility] [place] [facility] | Beltran Fields, | | | 2019 | Outreach | [facility] | [address] | | | | | [address] | [place] [address] [place], | | | | | [place] | [place] [address] | | | | | [address] | [phone] | | | | | [phone] | | | +--------+ + + + [...] this encounter Miscellaneous Notes Telephone Encounter - KATHYSHERMANJose Vazquez - 11/17/2018 10:03 AM PST 11/17/18 Guy Thurman has been identified as having one or more care gaps listed in the table be low (red box): Last Office Visit: 02/08/2018 Next Office Visit: No appointment scheduled Health Topic Patient Goal Patient Most Recent Data Recommended Patient Action Step Blood Pressure Below 140/90 100/70 02/08/2018 Cholesterol Get tested Not in our Medical Record Microalbumin Test at least once a year Not in our Medical Record HbA1c Below 8 is good 7.1 11/14/2015 Weight To manage your weight 263.01 lbs 02/08/2018 Eye Exam Check as directed by eye doctor 02/02/2017 Foot Exam Check once a year 02/02/2017 Immunizations Get Immunized Due for: - Influenza - Pneumococcal - Tdap - Shingles Colorectal Cancer Screening Get tested Last Updated: Not in our Medical Record To Primary Care Provider: Beltran Fields MD: Note if you agree with the services due: Office Visit for: Sign or remove pended order(s) as per your assessment - (see Environmental Monitoring Specialist): Orders Placed This Encounter Pending Hemoglobin A1C Ordered On: 11/17/2018 Microalbumin/Creatinine Ratio, Urine Ordered On: 11/17/2018 Approve/Deny Ready for Outreach Communication? Select Yes. Thank you, Population Health Support Team documented in this encount er Plan of Treatment +--------+---------+ + + + | Date | Type | Specialty | Care Team | Description | +--------+---------+ + + + | 11/05/ | Office | Cardiology | Cristiano Stout, | | | 2019 | Visit | | [address] | | | | | | [place], | | | | | | [place] [address] | | | | | | [phone] | | | | | | | | +--------+---------+ + + + documented as of this encounter Visit Diagnoses + + | Diagnosis | + + | Type 2 diabetes mellitus with hyperglycemia, without long-term current use of insulin | | (HCC) - Primary | + + documented in this encounter"
--- OUTSIDE RECORDS SUMMARY | ~2020-08-30 | XMS | Encounter Summary ---
Demographics + + + | Address | [address] | | | [place] [address] | + + + | Home Phone [...] [place] | | | | | [address] | | + + + + + | Floyd Herndon | ECON | NA | | | | | NA, | | + + + + + Care Team Providers + +------+ + | Care Delivery Engineer Name | Role | Phone | [...] | 11/18/ | Refill | [facility] [place] [facility] | Beltran Fields, | Medication Refill | | 2019 | | MEDICINE [address] | MD [address] | | | | | [place], | [place] [address] [place], | | | | | [place] [address] | [place] [address] | | | | | [phone] | [phone] | | | | | | | [...] this encounter Miscellaneous Notes Telephone Encounter - PeñaMei Adelso - 11/30/2018 8:36 AM PSTPatient was scheduled for 2018. elephone Encounter - Junior Pompaah Adelso - 11/23/2018 10:07 AM PSTLeft message for patient to return our call. Patient is due for annual after 02-08-19. 19 10:09 AM PSTTelephone Encounter - Monse Shelton RN - 11/18/2018 10:01 AM PSTLast vi sit: 02/08/2018 Next visit: Not scheduled Last filled: 11/23/2017 #90 with 3 refills. Pended for you and routed to the front to call and get patient scheduled. documented in this encounter Plan of Treatment +--------+---------+ + + + | Date | Type | Specialty | Care Team | Description | +--------+---------+ + + + | 11/05/ | Office | Cardiology | Cristiano Stout, | | | 2019 | Visit | | MD [address] | | | | | | [place], | | | | | | [place] [address] | | | | | | [phone] | | | | | | | | +--------+---------+ + + + documented as of this encounter Visit Diagnoses Not on filedocumented in this encounter"
--- OUTSIDE RECORDS SUMMARY | ~2020-08-30 | XMS | Encounter Summary ---
Demographics + + + | Address | [address] | | | [place] [address] | + + + | Home Phone [...] [place] | | | | | [address] | | + + + + + | Floyd Herndon | ECON | NA | | | | | NA, | | + + + + + Care Team Providers + +------+ + | Care Wash Rack Operator Name | Role | Phone | [...] | 05/27/ | Refill | [facility] [place] [facility] | Beltran Fields, | Medication Refill | | 2017 | | MEDICINE [address] | MD [address] | | | | | [place], | [place] [address] [place], | | | | | [place] [address] | [place] [address] | | | | | [phone] | | | | | | | [...] | | | | | | [place] [address] | | | | | | [phone] | | | | | | | | +--------+---------+ + + + documented as of this encounter Visit Diagnoses Not on filedocumented in this encounter"
--- OUTSIDE RECORDS SUMMARY | ~2020-08-30 | XMS | Encounter Summary ---
Demographics + + + | Address | [address] | | | [place] [address] | + + + | Home Phone [...] + | Author | [facility] | | | and [place] | + + + | Organization | [facility] | | | [...] [place] | | | | | [address] | | + + + + + | Floyd Herndon | ECON | NA | | | | | NA, | | + + + + + Care Team Providers + +------+ + | Care Physician Recruiter Name | Role | Phone | + [...] Dx) | | | | [place] | [place], [place] | | | | | [address] | [address] | | | | | [phone] | | | +--------+ + + + [...] | | | | | | [place] [address] | | | | | | [phone] | | | | | | | [...] [address] | [place] | [phone] | | [facility] | | [address], [facility] | | | [...] + | Drawn at [facility] in [place] | + + + +---------+ + + [...]
--- OUTSIDE RECORDS SUMMARY | ~2020-08-30 | XMS | Encounter Summary ---
Demographics + + + | Address | [address] | | | [place] [address] | + + + | Home Phone [...] + | Author | [facility] | | | and [place] | + + + | Organization | [facility] | | | [...] [place] | | | | | [address] | | + + + + + | Floyd Herndon | ECON | NA | | | | | NA, | | + + + + + Care Team Providers + +------+ + | Care Flight Communications Specialist Name | Role | Phone | + +------+ + | Beltran Fields MD | PCP | | + +------+ + Reason for Visit + +--------+ + | Reason | Onset | Comments | | | Date | | + +--------+ + | Medication Refill | 12/14/ | | | | 2019 | | + +--------+ + Encounter Details +--------+--------+ + + + | Date | Type | Department | Care Team | Description | +--------+--------+ + + + | 12/14/ | Refill | [facility] | Beltran Fields, | Medication Refill | | 2019 | | GROUP SE [place] | [address] | | | | | MEDICINE [place] | [place], | | | | | [address] | [place] [address] | | | | | [place], | [phone] | | | | | [place] [address] | | | | | | [phone] | | | +--------+--------+ + + + [...] this encounter Miscellaneous Notes Telephone Encounter - Jaelyn Keyes Military Technology Specialist - 12/14/2019 11:06 AM Anuradhaor Hira mented in this encounter Plan of Treatment +--------+---------+ + + + | Date | Type | Specialty | Care Team | Description | +--------+---------+ + + + | 11/05/ | Office | Cardiology | Cristiano Stout, | | | 2019 | Visit | | MD [address] | | | | | | [place], | | | | | | [place] [address] | | | | | | [phone] | | | | | | | | +--------+---------+ + + + documented as of this encounter Visit Diagnoses + + | Diagnosis | + + | Essential hypertension, benign | + + documented in this encounter"
--- OUTSIDE RECORDS SUMMARY | ~2020-08-30 | XMS | Encounter Summary ---
Demographics + + + | Address | [address] | | | [place] [address] | + + + | Home Phone | | + + + | Preferred Language | Unknown | + + + | Marital Status | | + + + | Uatsdin Affiliation | 1009 | + + + [...] [place] | | | | | [address] | | + + + + + | Floyd Herndon | ECON | NA | | | | | NA, | | + + + + + Care Team Providers + +------+ + | Care Web Content Developer Name | Role | Phone | + +------+ + | Beltran Fields MD | PCP | | + +------+ + Reason for Visit +--------+--------+ + | Reason | Onset | Comments | | | Date | | +--------+--------+ + | LABS | 03/05/ | | | | 2016 | | +--------+--------+ + Encounter Details +--------+ + + + + | Date | Type | Department | Care Team | Description | +--------+ + + + + | 03/05/ | Telephone | [facility] | Beltran Fields, | LABS | | 2016 | | MEDICINE [address] | MD [address] | | | | | [place], | [place] [address] [place], | | | | | [place] [address] | [place] [address] | | | | | [phone] | [phone] | | | | | | | [...] Telephone Encounter - Eloise Spicer RN - 03/05/2017 1:13 PM PDTReceived a call from gerald multani requesting his lab orders to be sent to [facility] in [place] so he could have t hem drawn there. FAxed orders to [phone]. documented in this encounter Plan of Treatment +--------+---------+ + + + | Date | Type | Specialty | Care Team | Description | +--------+---------+ + + + | 11/05/ | Office | Cardiology | Cristiano Stout, | | | 2019 | Visit | | MD [address] | | | | | | [place], | | | | | | [place] [address] | | | | | | [phone] | | | | | | | | +--------+---------+ + + + documented as of this encounter Visit Diagnoses Not on filedocumented in this encounter"
--- OUTSIDE RECORDS SUMMARY | ~2020-08-30 | XMS | Encounter Summary ---
Demographics + + + | Address | [address] | | | [place] [address] | + + + | Home Phone [...] | [facility] | | | and [place] | + + + | Organization | [facility] | | [...] [place] | | | | | [address] | | + + + + + | Floyd Herndon | ECON | NA | | | | | NA, | | + + + + + Care Team Providers + +------+ + | Care Cannoneer Name | Role | Phone | + [...] Description | +--------+--------+ + + + | 07/02/ | Refill | [facility] [place] [facility] | Beltran Fields, | Medication Refill | | 2020 | | [facility]ICINE [facility] | [address] | | | | | [address] | [place] [address] [place], | | | | | [place] | [place] [address] | | | | | [address] | [phone] | | | | | [phone] | | | +--------+--------+ + + + [...] this encounter Miscellaneous Notes Telephone Encounter - GonzalezJolene callejas Ai - 07/16/2020 2:49 PM PDTLeft voicemail and sent out bl ue card. elephone Encounter - Jolene Gonzalez - 07/08/2020 10:32 AM PDTLeft voicemail elephone Encounter - Julia Kearns RN - 07/03/2020 2:21 P M PDTDue for 6-month follow up on atrial fibrillation/hypertension/cholesterol/diabetes. Please schedule with PCP. Needs fasting labs prior. Due in July. d ocumented in this encounter Plan of Treatment +--------+---------+ + + + | Date | Type | Specialty | Care Team | Description | +--------+---------+ + + + | 11/05/ | Office | Cardiology | Cristiano Stout, | | 2019 | Visit | | MD [address] | | | | | | [place], | | | | | | [place] [address] | | | | | | [phone] | | | | | | | | +--------+---------+ + + + documented as of this encounter Visit Diagnoses Not on filedocumented in this encounter"
--- OUTSIDE RECORDS SUMMARY | ~2020-08-30 | XMS | Encounter Summary ---
Demographics + + + | Address | [address] | | | [place] [address] | + + + | Home Phone [...] [place] | | | | | [address] | | + + + + + | Floyd Herndon | ECON | NA | | | | | NA, | | + + + + + Care Team Providers + +------+ + | Care Delivery Table Operator Name | Role | Phone | + +------+ + | Beltran Fields MD | PCP | | + +------+ + Reason for Visit + +--------+ + | Reason | Onset | Comments | | | Date | | + +--------+ + | Medication Refill | 11/11/ | | | | 2014 | | + +--------+ + Encounter Details +--------+--------+ + + + | Date | Type | Department | Care Team | Description | +--------+--------+ + + + | 11/11/ | Refill | [facility] [place] [facility] | Beltran Fields, | Medication Refill | | 2014 | | MEDICINE [address] | [address] | | | | | [address] [place], | [place] [address] [place], | | | | | [place] [address] | [place] [address] | | | | | [phone] | [phone] | | | | | | | [...] Miscellaneous Notes Telephone Encounter - Floyd Steele 11/11/2015 9:38 AM PSTMedication flecain jen (TAMBOCOR) 50 MG tablet Quantity 180 Amount of medication remaining 12 Last refill date 07-26-14 Pharmacy [facility] Last appointment 05-28-15 Next appointment 11-14-15 Caller Guy, Patient states that kiln burner has been refilling this medication. His kiln burner has retired and will not be able to fill it. documented in th is encounter Plan of Treatment +--------+---------+ + + + | Date | Type | Specialty | Care Team | Description | +--------+---------+ + + + | 11/05/ | Office | Cardiology | Cristiano Stout, | | | 2019 | Visit | | MD [address] | | | | | | [place], | | | | | | [place] [address] | | | | | | [phone] | | | | | | | | +--------+---------+ + + + documented as of this encounter Visit Diagnoses Not on filedocumented in this encounter"
--- OUTSIDE RECORDS SUMMARY | ~2020-08-30 | XMS | Encounter Summary ---
Demographics + + + | Address | [address] | | | [place] [address] | + + + | Home Phone [...] Author | [facility] | | | and [place] | + + + | Organization | [facility] | | | and [place] | + + + | Address | Unknown | + + + | Phone | Unavailable | + + + Support + + + + + | Name | Relationship | Address | Phone | + + + + + | Yuliet Crow | ECON | [address] | | | | | [place] | | | | | [address] | | + + + + + | Floyd Herndon | ECON | NA | | | | | NA, | | + + + + + Care Team Providers + +------+ + | Care Performance Tester Name | Role | Phone | + +------+ + | Beltran Fields MD | PCP | | + +------+ + Reason for Visit +---------+--------+ + | Reason | Onset | Comments | | | Date | | +---------+--------+ + | Results | 03/07/ | | | | 2017 | | +---------+--------+ + Encounter Details +--------+ + + + + | Date | Type | Department | Care Team | Description | +--------+ + + + + | 03/07/ | Telephone | [facility] | Beltran Fields, | Results | | 2017 | | MEDICINE [address] | [address] | | | | | [address] [place], | [place] [address] [place], | | | | | [place] [address] | [place] [address] | | | | | [phone] | [phone] | | | | | | | [...] Telephone Encounter - Eloise Spicer RN - 03/07/2018 1:58 PM PDTLeft message on voice mail that lab results obtained from [facility] are acceptable. documented in this encounter Plan of Treatment +--------+---------+ + + + | Date | Type | Specialty | Care Team | Description | +--------+---------+ + + + | 11/05/ | Office | Cardiology | Cristiano Stout, | | | 2019 | Visit | | MD [address] | | | | | | [place], | | | | | | [place] [address] | | | | | | [phone] | | | | | | | | +--------+---------+ + + + documented as of this encounter Visit Diagnoses Not on filedocumented in this encounter"
--- OUTSIDE RECORDS SUMMARY | ~2020-08-30 | XMS | Encounter Summary ---
Demographics + + + | Address | [address] | | | [place] [address] | + + + | Home Phone [...] [place] | | | | | [address] | | + + + + + | Floyd Herndon | ECON | NA | | | | | NA, | | + + + + + Care Team Providers + +------+ + | Care Computer Systems Architect Name | Role | Phone | + +------+ + | Beltran Fields MD | PCP | | + +------+ + Reason for Visit +--------+--------+ + | Reason | Onset | Comments | | | Date | | +--------+--------+ + | Other | 09/03/ | SCHEDULE A SURGERY | | | 2013 | | +--------+--------+ + Encounter Details +--------+ + + + + | Date | Type | Department | Care Team | Description | +--------+ + + + + | 09/03/ | Telephone | [facility] | Jordin Padron, | Other (SCHEDULE A | | 2013 | | [address] | MD [address] | SURGERY) | | | | [place] | [place] | | | | | [address] | [address] | | | | | [phone] | | | +--------+ + + + [...] encounter Miscellaneous Notes Telephone Encounter - Claribel Trinidad, RN - 09/04/2014 4:58 PM PDTTALKED WITH PATIENT. HE STATES HE IS LEANING TOWARDS DOING THE PROSTATECTOMY, BUT JUST WANTED TO KNOW THE PROCES S OF GETTING THAT DONE. ADVISED WE WOULD PUT IN A REFERRAL TO DR [place]GLESIAS IN [place] (THAT WO ULD PROBABLY BE HIS PREFERENCE SINCE HE DID HIS RESIDENCY AT [facility]). WE WOULD SEND R ECORDS TO THEIR OFFICE AND THEY SHOULD CONTACT HIM WITHIN A A WEEK TO SCHEDULE AN APPOINTMEN T. HE STATES HE WILL TALK THINGS OVER WITH HIS AND GET BACK TO [place].Electronically melida d by Claribel Trinidad RN at 09/04/2014 5:09 PM PDTTelephone Encounter - Angelita Guzman - 09/03/2014 3:28 PM PDTWANTING TO GET STARTED ON POSSIBLE SURGERY. [phone] ally signed by Angelita Guzman at 09/03/2014 3:29 PM PDTdocumented in this encounter Plan of [...] | | | | | | [place] [address] | | | | | | [phone] | | | | | | | | +--------+---------+ + + + documented as of this encounter Visit Diagnoses Not on filedocumented in this encounter"
--- OUTSIDE RECORDS SUMMARY | ~2020-08-30 | XMS | Encounter Summary ---
Demographics + + + | Address | [address] | | | [place] [address] | + + + | Home Phone | | + + + | Preferred Language | Unknown | + + + | Marital Status | | + + + | Denominational Affiliation | 1009 | + + + | Race | White | + + + | Ethnic Group | Not or | + + + Author + + + | Author | [facility] | | | and [place] | + + + | Organization | [facility] | [...] [place] | | | | | [address] | | + + + + + | Floyd Herndon | ECON | NA | | | | | NA, | | + + + + + Care Team Providers + +------+ + | Care Machinery Rigger Name | Role | Phone | [...] | 11/17/ | Refill | [facility] | Beltran Fields, | Medication Refill | | 2019 | | MEDICINE [address] | MD [address] | | | | | [place], | [place] [address] [place], | | | | | [place] [address] | [place] [address] | | | | | [phone] | [phone] | | | | | | | [...] this encounter Miscellaneous Notes Telephone Encounter - Mei Pompa - 11/28/2018 8:48 AM PSTPatient was scheduled for 2018 for annual. Is this okay for the refill?Electronically signed by Mei Pompa at 11/15 8:48 AM PSTTelephone Encounter - Mei Pompa - 11/17/2018 4:20 PM PSTLeft bashir flores for patient to return our call. 4:2 1 PM PSTdocumented in this encounter Plan of Treatment +--------+---------+ + + + | Date | Type | Specialty | Care Team | Description | +--------+---------+ + + + | 11/05/ | Office | Cardiology | Cristiano Stout, | | | 2019 | Visit | | MD [address] | | | | | | [place], | | | | | | [place] [address] | | | | | | [phone] | | | | | | | | +--------+---------+ + + + documented as of this encounter Visit Diagnoses Not on filedocumented in this encounter"
--- OUTSIDE RECORDS SUMMARY | ~2020-08-30 | XMS | Encounter Summary ---
Demographics + + + | Address | [address] | | | [place] [address] | + + + | Home Phone [...] [place] | | | | | [address] | | + + + + + | Floyd Herndon | ECON | NA | | | | | NA, | | + + + + + Care Team Providers + +------+ + | Care It Security Architect Name | Role | Phone | + +------+ + | Beltran Fields MD | PCP | | + +------+ + Reason for Visit + +--------+ + | Reason | Onset | Comments | | | Date | | + +--------+ + | Medication Orders | 02/03/ | Metoprolol | | | 2016 | | + +--------+ + Encounter Details +--------+--------+ + + + | Date | Type | Department | Care Team | Description | +--------+--------+ + + + | 02/03/ | Refill | [facility] | Beltran Fields, | Medication Orders | | 2016 | | MEDICINE [address] [place] [address] | [address] | (Metoprolol) | | | | [place], | [address] [address] [place], | | | | | [place] [address] | [place] [address] | | | | | [phone] | [phone] | | | | | | | [...] this encounter Miscellaneous Notes Telephone Encounter - Yuliet Stephens RN - 02/03/2017 11:06 AM PDTReceived a call from Sa pepe [place] inquiring about the Metoprolol dose. The office notes indicate he is taking 50 mg in the AM and 25 mg in the PM. The prescription was sent in for Metoprolol 50 mg once daily. The pharmacist also states th at this is normally dosed twice daily Please advise ALSO THERE ARE 2 METOPROLOL PRESCRIPTIONS ONE FOR 50 MG AND ONE FOR 25 MG DO YOU WANT BOTH STRENGTHS? documented in this e ncounter Plan of Treatment +--------+---------+ + + + | Date | Type | Specialty | Care Team | Description | +--------+---------+ + + + | 11/05/ | Office | Cardiology | Cristiano Stout, | | | 2019 | Visit | | [address] | | | | | | [place], | | | | | | [place] [address] | | | | | | [phone] | | | | | | | | +--------+---------+ + + + documented as of this encounter Visit Diagnoses + + | Diagnosis | + + | Essential hypertension, benign - Primary | + + documented in this encounter"
--- OUTSIDE RECORDS SUMMARY | ~2020-08-30 | XMS | Encounter Summary ---
Demographics + + + | Address | [address] | | | [place] [address] | + + + | Home Phone [...] [place] | | | | | [address] | | + + + + + | Floyd Herndon | ECON | NA | | | | | NA, | | + + + + + Care Team Providers + +------+ + | Care Emergency Room Nurse Name | Role | Phone | + +------+ + | Beltran Fields MD | PCP | | + +------+ + Reason for Visit + +--------+ + | Reason | Onset | Comments | | | Date | | + +--------+ + | Medication Refill | 09/29/ | | | | 2015 | | + +--------+ + Encounter Details +--------+--------+ + + + | Date | Type | Department | Care Team | Description | +--------+--------+ + + + | 09/29/ | Refill | [facility] | Beltran Fields, | Medication Refill | | 2015 | | MEDICINE [address] | [address] | | | | | [address]VE [place], | [address] [address] [place], | | | | | [place] [address] | [place] [address] | | | | | [phone] | [phone] | | | | | | | [...] | | | | | | [place] [address] | | | | | | [phone] | | | | | | | | +--------+---------+ + + + documented as of this encounter Visit Diagnoses + + | Diagnosis | + + | Other allergic rhinitis - Primary | + + documented in this encounter"
--- OUTSIDE RECORDS SUMMARY | ~2020-08-30 | XMS | Encounter Summary ---
Demographics + + + | Address | [address] | | | [place] [address] | + + + | Home Phone [...] Author | [facility] | | | and [place] | + + + | Organization | [facility] | | | and [place] | + + + | Address | Unknown | + + + | Phone | Unavailable | + + + Support + + + + + | Name | Relationship | Address | Phone | + + + + + | Yuliet rCow | ECON | [address] | | | | | [place] | | | | | [address] | | + + + + + | Floyd Herndon | ECON | NA | | | | | NA, | | + + + + + Care Team Providers + +------+ + | Care Administration Manager Name | Role | Phone | + +------+ + | Beltran Fields MD | PCP | | + +------+ + Reason for Visit + +--------+ + | Reason | Onset | Comments | | | Date | | + +--------+ + | Medication Refill | | | + +--------+ + | Medication Refill | 12/14/ | | | | 2020 | | + +--------+ + Encounter Details +--------+--------+ + + + | Date | Type | Department | Care Team | Description | +--------+--------+ + + + | 12/05/ | Refill | [facility] | Beltran Fields, | Medication Refill; | | 2019 | | MEDICINE [place] | [address] | Medication Refill | | | | [address] | [place] [address] [place], | | | | | [place] | [place] [address] | | | | | [address] | [phone] | | | | | [phone] | | | +--------+--------+ + + + [...] documented as of this encounter Miscellaneous Notes Addendum Note - Lion Rodriguez RN - 12/14/2019 9:36 AM PST Addended by: LION COX on: 12/14/2019 09:36 AM Modules accepted: Orders elephone En counter - Lion Rodriguez RN - 12/14/2019 9:29 AM PSTPatient calls stating [facility]. Explained that Dr Fields did send in the script on 12/08. Told him would call the pharmacy. He also requests a refill of his flonase. [facility] documented in this encounter Plan of Treatment +--------+---------+ + + + | Date | Type | Specialty | Care Team | Description | +--------+---------+ + + + | 11/05/ | Office | Cardiology | Cristiano Stout, | | 2019 | Visit | | MD [address] | | | | | | [place], | | | | | | [place] [address] | | | | | | [phone] | | | | | | | | +--------+---------+ + + + documented as of this encounter Visit Diagnoses Not on filedocumented in this encounter"
--- OUTSIDE RECORDS SUMMARY | ~2020-08-30 | XMS | Encounter Summary ---
Demographics + + + | Address | [address] | | | [place] [address] | + + + | Home Phone [...] Author | [facility] | | | and [place] | + + + | Organization | [facility] | | [...] [place] | | | | | [address] | | + + + + + | Floyd Herndon | ECON | NA | | | | | NA, | | + + + + + Care Team Providers + +------+ + | Care Tank Crewmember Name | Role | Phone | + +------+ + | Beltran Fields MD | PCP | | + +------+ + Reason for Visit + +--------+ + | Reason | Onset | Comments | | | Date | | + +--------+ + | Medication Refill | 02/11/ | | | | 2014 | | + +--------+ + Encounter Details +--------+--------+ + + + | Date | Type | Department | Care Team | Description | +--------+--------+ + + + | 02/11/ | Refill | [facility] [place] [facility] | Beltran Fields, | Medication Refill | | 2014 | | MEDICINE [address] | [address] | | | | | [address]VE [place], | [address] [place], | | | | | [place] [address] | [place] [address] | | | | | [phone] | [phone] | | | | | | | [...] | | | | | | [place] [address] | | | | | | [phone] | | | | | | | | +--------+---------+ + + + documented as of this encounter Visit Diagnoses Not on filedocumented in this encounter"
--- OUTSIDE RECORDS SUMMARY | ~2020-08-30 | XMS | Encounter Summary ---
Demographics + + + | Address | [address] | | | [place] [address] | + + + | Home Phone [...] | Author | [facility] | | | and [place] | + + + | Organization | [facility] | | | [...] [place] | | | | | [address] | | + + + + + | Floyd Herndon | ECON | NA | | | | | NA, | | + + + + + Care Team Providers + +------+ + | Care Paver Installer Name | Role | Phone | + +------+ + | Beltran Fields MD | PCP | | + +------+ + Reason for Visit + +--------+ + | Reason | Onset | Comments | | | Date | | + +--------+ + | Medication Refill | 05/02/ | | | | 2014 | | + +--------+ + Encounter Details +--------+--------+ + + + | Date | Type | Department | Care Team | Description | +--------+--------+ + + + | 05/02/ | Refill | [facility] [place] [facility] | Beltran Fields, | Medication Refill | | 2014 | | MEDICINE [address] | [address] | | | | | [address]VE [place], | [place] [address] [place], | | | | | [place] [address] | [place] [address] | | | | | [phone] | [phone] | | | | | | | [...] Telephone Encounter - Constance Morgan RN - 05/03/2015 10:17 AM PDTPatient returned call. D /t his schedule he will have to check his calendar and get back to us to schedule an appoint ment. Refilled Metropolol for #30 per protocol and verbal order from . Explained this to patient. Patient verbalized understanding Electronically signed by Constance Morgan RN at 10:19 AM PDTTelephone Encounter - Constance Morgan RN - 05/02/2015 1:50 PM PDTRecei lupis refill request for Metoprolol 25 mg tablet. Last appt 11/22/14 With recommendations to f /u in 3 months. Called patient and left message to return call to schedule follow up appt. documented in this enc ounter Plan of [...] | | | | | | [place] [address] | | | | | | [phone] | | | | | | | | +--------+---------+ + + + documented as of this encounter Visit Diagnoses Not on filedocumented in this encounter"
--- OUTSIDE RECORDS SUMMARY | ~2020-08-30 | XMS | Encounter Summary ---
Demographics + + + | Address | [address] | | | [place] [address] | + + + | Home Phone [...] [place] | | | | | [address] | | + + + + + | Floyd Herndon | ECON | NA | | | | | NA, | | + + + + + Care Team Providers + +------+ + | Care Audiovisual Equipment Operator Name | Role | Phone [...] [place] | | | | | [address] | [address] | | | | | [phone] | | | +--------+ + + + [...] [place], | | | | | | [place] [address] | | | | | | [phone] | | | | | | | [...] + + + + | Clarity, | Hazy | | [facility] | | | Urine | | | [facility] | | | | | | [facility] | | | | | | [facility] - | | | | | | LABORATORY | | + + + + + + | Specific | 1.010 | 1.005 - 1.030 | [facility] | | | [place], | | | [facility] | | [...] + + + | Blood, | 250 chen/JohanaComment: High | | [facility] | | | Urine | - abnormal | | [facility] | | | | | | MEDICAL | | | | | | CENTER - | | | | | | LABORATORY | | + + + + + + | Nitrite, | Negative | Negative, Test | [facility] | | | Urine | | not performed | [facility] | | | | | [...] [address] | [place] | | | [facility] | | [address] | | | - LABORATORY | | | | + + + + + documented in this encounter Visit Diagnoses Not on filedocumented in this encounter"
--- OUTSIDE RECORDS SUMMARY | ~2020-08-30 | XMS | Encounter Summary ---
Demographics + + + | Address | [address] | | | [place] [address] | + + + | Home Phone | | + + + | Preferred Language | Unknown | + + + | Marital Status | | + + + | Oriental Orthodox Affiliation | 1009 | + + [...] [place] | | | | | [address] | | + + + + + | Floyd Herndon | ECON | NA | | | | | NA, | | + + + + + Care Team Providers + +------+ + | Care Investigator Utility Bill Complaints Name | Role | Phone | + +------+ + | Beltran Fields MD | PCP | | + +------+ + Encounter Details +--------+ + + + + | Date | Type | Department | Care Team | Description | +--------+ + + + + | 02/28/ | Abstract | [facility] | Beltran Fields, | | | 2019 | | [facility] | [address] | | | | | [address] | [place] [address] [place], | | | | | [place] | [place] [address] | | | | | [address] | [phone] | | | | | [phone] | | | +--------+ + + + [...] [place], | | | | | | [place] [address] | | | | | | [phone] | | | | | | | | +--------+---------+ + + + documented as of this encounter Procedures + +--------+ + + + | Procedure Name | Priori | Date/Time | Associated Diagnosis | Comments | | | ty | | | | + +--------+ + + + | EXTERNAL LAB: [facility] | Routin | 02/23/2020 | | Results [...] + | Clarity, | Clear | | [facility]FER[facility] | | | Urine | [...] | REFERENCE LAB | [address] [facility] | [place] | [phone] | | [facility] | | [address] | | + + + + + [...] | REFERENCE LAB | [address] [facility] | [place] | [phone] | | [facility] | | [address] | | + + + + + [...] | REFERENCE LAB | [address] [facility] | [place] | [phone] | | [facility] | | [address] | | + + + + + [...] | REFERENCE LAB | [address] [facility] | [place] | [phone] | | [facility] | | [address] | | + + + + + [...] [address] | [place] | [phone] | | [facility] | | [address] | | + + + + + [...] + | REFERENCE LAB | [address] | [place] | [phone] | | [facility] | | [address] | | + + + + + [...] - 1.03 | REFERENCE | | | [place], | | | LAB | | | [...] REFERENCE LAB | [address] | [place] | [phone] | | [facility] | | [address] | | + + + + + [...] REFERENCE LAB | [address] | [place] | [phone] | | [facility] | | [address] | | + + + + + [...] [address] | [place] | [phone] | | [facility] | | [address] | | + + + + + [...] | REFERENCE LAB | [address] [facility] | [place] | [phone] | | [facility] | | [address] | | + + + + + [...] | REFERENCE LAB | [address] [facility] | [place] | [phone] | | [facility] | | [address] | | + + + + + [...] + + + | REFERENCE LAB | [address] [facility] | [place] | [phone] | | [facility] | | [address] | | + + + + + [...] | REFERENCE LAB | [address] [facility] | [place] | [phone] | | [facility] | | [address] | | + + + + + [...] + + + | REFERENCE LAB | [address] [facility] | [place] | [phone] | | [facility] | | [address] | | + + + + + [...] + | REFERENCE LAB | [address] | [place] | [phone] | | [facility] | | [address] | | + + + + + [...] | REFERENCE LAB | [address] [facility] | [place] | [phone] | | [facility] | | [address] | | + + + + + [...] + + | REFERENCE LAB | [address] [facility] | [place] | [phone] | | [facility] | | [address] | | + + + + + [...] | REFERENCE LAB | [address] [facility] | [place] | [phone] | | [facility] | | [address] | | + + + + + [...] | REFERENCE LAB | [address] [facility] | [place] | [phone] | | [facility] | | [address] | | + + + + + [...] + + + | REFERENCE LAB | [address] [facility] | [place] | [phone] | | [facility] | | [address] | | + + + + + [...] | REFERENCE LAB | [address] [facility] | [place] | [phone] | | [facility] | | [address] | | + + + + + [...] [address] | [place] | [phone] | | [facility] | | [address] | | + + + + + [...] + | REFERENCE LAB | [address] | [place] | [phone] | | [facility] | | [address] | | + + + + + [...] | REFERENCE LAB | [address] [facility] | [place] | [phone] | | [facility] | | [address] | | + + + + + [...] + + + | REFERENCE LAB | [address] [facility] | [place] | [phone] | | [facility] | | [address] | | + + + + + [...] [address] | [place] | [phone] | | [facility] | | [address] | | + + + + + documented in this encounter Visit Diagnoses Not on filedocumented in this encounter"
--- OUTSIDE RECORDS SUMMARY | ~2020-08-30 | XMS | Encounter Summary ---
Demographics + + + | Address | [address] | | | [place] [address] | + + + | Home Phone [...] [place] | | | | | [address] | | + + + + + | Floyd Herndon | ECON | NA | | | | | NA, | | + + + + + Care Team Providers + +------+ + | Care Resident Care Manager Name | Role | Phone | [...] + + | 09/08/ | Office | [facility] | Beltran Fields, | Osteoarthritis; BPH | | 2011 | Visit | MEDICINE [place] | [address] | (benign prostatic | | | | [address] | [place] [address] [place], | hyperplasia); | | | | [place], [place] | [place] [address] | Essential | | | | [address] | [phone] | hypertension, | | | | [phone] | | benign; BENIGN | | | [...] child and 3 stepchildren. He lives in [place], [place]. 9 living Grandchildren. Review of Systems [...] | | | | | | [place] [address] | | | | | | [phone] | | | | | | | [...]
--- OUTSIDE RECORDS SUMMARY | ~2020-08-30 | XMS | Encounter Summary ---
Demographics + + + | Address | [address] | | | [place] [address] | + + + | Home Phone [...] | Author | [facility] | | | and [place] | + + + | Organization | [facility] | | [...] [place] | | | | | [address] | | + + + + + | Floyd Herndon | ECON | NA | | | | | NA, | | + + + + + Care Team Providers + +------+ + | Care Muck Farmer Name | Role | Phone | [...] | 04/04/ | Refill | [facility] | Beltran Fields, | Medication Refill | | 2018 | | MEDICINE [address] | MD [address] | | | | | [address] [place], | [place] [address] [place], | | | | | [place] [address] | [place] [address] | | | | | [phone] | [phone] | | | | | | | [...] | | | | | | [place] [address] | | | | | | [phone] | | | | | | | | +--------+---------+ + + + documented as of this encounter Visit Diagnoses Not on filedocumented in this encounter"
--- OUTSIDE RECORDS SUMMARY | ~2020-08-30 | XMS | Encounter Summary ---
Demographics + + + | Address | [address] | | | [place] [address] | + + + | Home Phone [...] [place] | | | | | [address] | | + + + + + | Floyd Herndon | ECON | NA | | | | | NA, | | + + + + + Care Team Providers + +------+ + | Care Cheesemaker Name | Role | Phone | + +------+ + | Beltran Fields MD | PCP | | + +------+ + Encounter Details +--------+ + + + + | Date | Type | Department | Care Team | Description | +--------+ + + + + | 11/14/ | Hospital | [facility] | Beltran Fields, | Pure | | 2015 | Encounter | [facility] | [address] | hypercholesterolemia | | | | [address] [place] | [place], | (Primary Dx); Iron | | | | [place], [place] | [place] [address] | deficiency anemia; | | | | [address] | [phone] | Hyperglycemia; Iron | | | | [phone] | | deficiency anemia, | | | [...] + + + +---------+ + + | Wolcott-3 Fatty | two capsules by | | [...] like to discuss w martirin a month. Cbc and iron panel prior. [...] | | | | | | [place] [address] | | | | | | [phone] | | | | | | | [...] + | [facility] | [address] | [place] | [phone] | | [facility] | | [address] | | | - LABORATORY | | [...] + | [facility] | [address] | [place] | [phone] | | [facility] | | [address] | | | - LABORATORY | | [...] | | | | | mg/dL | [facility] | | | | | | MEDICAL | | | | | | CENTER - | | | | | | LABORATORY | | + + + + + + | eGFR, | >60Comment: GLOMERULAR | >=60 | [facility] | | | non- | FILTRATION | mL/min/1.73m2 | [facility] | | | Cam[place]onian | RATE,ESTIMATED | | MEDICAL | | | | mL/min/1.38j2Zvrh than | | CENTER - | | [...] | | | | | mg/dL | [facility] | | | | | | [...] + | [facility] | [address] | [place] | [phone] | | [facility] | | [address] | | | - LABORATORY | | [...] | | | Cells | | | [facility] | | [...] ST. | [address] | [place], [place] | [phone] | | [facility] | | [address] | | | - LABORATORY | | [...]
--- OUTSIDE RECORDS SUMMARY | ~2020-08-30 | XMS | Encounter Summary ---
Demographics + + + | Address | [address] | | | [place] [address] | + + + | Home Phone [...] [place] | | | | | [address] | | + + + + + | Floyd Herndon | ECON | NA | | | | | NA, | | + + + + + Care Team Providers + +------+ + | Care Sleeve Sewer Name | Role | Phone | [...] | 12/25/ | Refill | [facility] [place] [facility] | Beltran Fields, | Medication Refill | | 2019 | | MEDICINE [address] | MD [address] | | | | | [place], | [place] [address] [place], | | | | | [place] [address] | [place] [address] | | | | | [phone] | [phone] | | | | | | | [...] | | | | | | [place] [address] | | | | | | [phone] | | | | | | | | +--------+---------+ + + + documented as of this encounter Visit Diagnoses Not on filedocumented in this encounter"
--- OUTSIDE RECORDS SUMMARY | ~2020-08-30 | XMS | Clinical Summary ---
Demographics + + + | Address | [address] | | | [place] [address] | + + + | Home Phone [...] | Author | [facility] | | | and [place] | + + + | Organization | [facility] | | [...] [place] | | | | | [address] | | + + + + + | Floyd Herndon | ECON | NA | | | | | NA, | | + + + + + Care Team Providers + +------+ + | Care Commercial Drone Software Developer Name | Role | Phone | [...] | | + + + +---------+------+------+-------+ | Partlow-3 Fatty | two capsules by | | 0 | 07/16 | | Activ | | Acids (EQL FISH OIL) | mouth daily | | | 2/20 | | e | | 1000 MG CAPS | | | | 12 | | | + + + +---------+------+------+-------+ | Omeprazole | TBEC one tablet by | | 0 | 09/ | | Activ | | Magnesium (PRILOSEC [...] every 6 hours | tablet | | 7/20 | | e | | ophen (NORCO) [...] TABLET BY | 90 | 0 | 08/1 | | Activ | | (KLOR-CON M20) 20 | MOUTH EVERY DAY | tablet | | 9/20 | | e | | mEq ER tablet | | | | 20 | | | + + + +---------+------+------+-------+ | fluticasone | INSTILL 2 SPRAYS IN | 16 g | 2 | 09/0 | | Activ | | (FLONASE) 50 | EACH NOSTRIL EVERY | | | 3/20 | | e | | mcg/nasal spray | DAY. | | | 20 | | | + + + +---------+------+------+-------+ | metoprolol | TAKE ONE TABLET BY | 90 | 0 | 09/1 | | Activ | | tartrate (LOPRESSOR) | MOUTH EVERY MORNING | tablet | | 8/20 | | e | | 50 mg | | | | 20 | | | | tabletIndications: | | | | | | | | Essential | | | | | | | | hypertension, benign | | | | | | | + + + +---------+------+------+-------+ | allopurinol | TAKE ONE TABLET BY | 90 | 0 | / | | Activ | | (ZYLOPRIM) 300 mg | MOUTH EVERY DAY | tablet | | 08/04 | | e | | tabletIndications: | | | | 20 | | | | History of gout | | | | | | | + + + +---------+------+------+-------+ | atorvaSTATin | TAKE ONE TABLET BY | 90 | 0 | 10/0 | | Activ | | (LIPITOR) 40 mg | MOUTH EVERY DAY | tablet | | 5/20 | | e | | tabletIndications: | | | | 20 | | | | Mixed hyperlipidemia | | | | | | | + + + +---------+------+------+-------+ | | TAKE ONE TABLET BY | 90 | 0 | 10/1 | | Activ | | hydroCHLOROthiazide | MOUTH EVERY DAY | tablet | | 6/20 | | e | | 50 mg | | | | 20 | | | | tabletIndications: | | | | | | | | Essential | | | | | | | | hypertension, benign | | | | | | | + + + +---------+------+------+-------+ | Magnesium 400 MG | Take by mouth. | | 0 | | | Activ | | TABS | | | | | | e | + + + +---------+------+------+-------+ | apixaban (ELIQUIS) | Take 1 tablet by | 180 | 3 | 10/1 | | Activ | | 5 mg tablet | mouth 2 times daily. | tablet | | 3/20 | | e | | | | | | 20 | | | + + + +---------+------+------+-------+ | flecainide | Take 1 tablet by | 180 | 3 | 10/1 | 10/1 | Activ | | (TAMBOCOR) 150 MG | mouth 2 times daily. | tablet | | 3/20 | 3/20 | e | | tablet | | | | 20 | 21 | | + + + +---------+------+------+-------+ | allopurinol | Take one tablet by | 90 | 1 | 03/1 | 09/2 | Disco | | (ZYLOPRIM) 300 mg | mouth every day | tablet | | 0/20 | 9/20 | ntinu | | tabletIndications: | | | | 20 | 20 | ed | | History of gout | | | | | | | + + + +---------+------+------+-------+ | atorvaSTATin | Take one tablet by | 90 | 1 | 03/1 | 10/0 | Disco | | (LIPITOR) 40 mg | mouth every day | tablet | | 0/20 | 5/20 | ntinu | | tabletIndications: | | | | 20 | 20 | ed | | Mixed hyperlipidemia | | | | | | | + + + +---------+------+------+-------+ | flecainide | One po bid | 180 | 1 | 03/1 | 10/0 | Disco | | (TAMBOCOR) 100 mg | | tablet | | 0/20 | 5/20 | ntinu | | tabletIndications: | | | | 20 | 20 | ed | | Atrial fibrillation | | | | | | | | with rapid | | | | | | | | ventricular response | | | | | | | | (HCC) | | | | | | | + + + +---------+------+------+-------+ | | TAKE ONE TABLET BY | 90 | 1 | 03/ | 10/ | Disco | | hydroCHLOROthiazide | MOUTH EVERY DAY | tablet | | 0/20 | 6/20 | ntinu | | 50 mg | | | | 20 | 20 | ed | | tabletIndications: | | | | | | | | Essential | | | | | | | | hypertension, benign | | | | | | | + + + +---------+------+------+-------+ | metoprolol | Take 1 tablet (50 mg | 90 | 0 | 06/2 | 07/16 | Disco | | tartrate (LOPRESSOR) | total) by mouth | tablet | | 2/20 | 8/20 | ntinu | | 50 mg | every morning | | | 20 | 20 | ed | | tabletIndications: | | | | | | | | Essential | | | | | | | | hypertension, benign | | | | | | | + + + +---------+------+------+-------+ | flecainide | TAKE ONE TABLET BY | 180 | 0 | 10/0 | 10/1 | Disco | | (TAMBOCOR) 100 mg | MOUTH TWICE DAILY . | tablet | | /20 | / | ntinu | | tabletIndications: | | | | 20 | 20 | ed | | Atrial fibrillation | | | | | | (Dose | | with rapid | | | | | | | | ventricular response | | | | | | adjus | | ([facility]) | | | | | | tment | | | | | | | | ) | + + + +---------+------+------+-------+ Active Problems [...] biopsy 04/28/12 [facility] Benign | | 09/04/09 Nancy Benign | | | | PCA3 04/04/12 Nancy Negative | | | | Urine cytology 08/21/14 [facility] Negative | | 10/27/10 ODL Negative | | | | CT abd/pel 09/01/10 [facility] | + + + + [...] + + + + | Overview: ABILIO [id number] Decision | + + + +---+ | [...] | +--------+ + + + + | 08/27/ | Office | Cardiology | Pauly Stout, | Paroxysmal A-fib | | 2020 | Visit | | MD | ([facility]) (Primary Dx); | | | | | | Hypomagnesemia; | | | | | | Dyslipidemia; | | | | | | Prediabetes; | | | | | | Obstructive sleep | | | | | | apnea syndrome; | | | | | | Essential | | | | | | hypertension | +--------+ + + + + | 08/27/ | Refill | Family Medicine | Beltran Fields, | Medication Refill | | 2019 | | | MD | | +--------+ + + + + | 08/19/ | Telephone | Family Medicine | Beltran Fields, | Appointment | | 2019 | | | MD | | +--------+ + + + + | 08/18/ | Refill | Family Medicine | Beltran Fields, | Medication Refill | | 2019 | | | MD | | +--------+ + + + + | 08/10/ | Refill | Family Medicine | Beltran Fields, | Medication Refill | | 2019 | | | MD | | +--------+ + + + + | 08/02/ | Refill | Family Medicine | Beltran Fields, | Medication Refill | | 2019 | | | MD | | +--------+ + + + + | 07/16/ | Refill | Family Medicine | Beltran Fields, | Medication Refill | | 2019 | | | MD | | +--------+ + + + + | 07/02/ | Refill | Family Medicine | Beltran [...] | + + + + | INFLUENZA, [id number], | 11/26/2009 | | | UNSPECIFIED | | | + + + + | INFLUENZA, | 09/07/2010, 07/22/2009, 09/15/2008, | | | UNSPECIFIED | 08/23/2007 | | | FORMULATION | | | + + + + | INFLUENZA, | 07/26/2013 | | | W/Preservative | | | + + + + Family History + + + + + | Medical History | Relation | Name | Comments | + + + + + | Arrhythmia | Brother | | A Fib | + + + + + | Kidney disease | Father | | retroperitoneal fibrosis | + + + + + | Prostate cancer | Father | | age 77 | + + + + + | Arrhythmia | Maternal | | A Fib | | | Aunt | | | + + + + + | Cancer | Sister | | AML | + + + + + | Arrhythmia | Sister | Kely | A Fib | + + + + + | Heart surgery | Sister | Kely | A Fib ablation x3 | + + + + + + + + + + | Relation | Name | Status | Comments | + + + + + | Brother | | Alive | | + + + + + | Daughter | | Alive | | + + + + + | Father | | | | | | | (Age | | | | | 77) | | + + + + + | Maternal Aunt | | Alive | | + + + + + | Mother | | | | | | | (Age | | | | | 93) | | + + + + + | Sister | | | | | | | (Age | | | | | 75) | | + + + + + | Sister | Robyn | Alive | | + + + + + | Sister | Kely | Alive | | + + + + + Social History + [...] + + + + Plan of Treatment +--------+---------+ + + + | Date | Type | Specialty | Care Team | Description | +--------+---------+ + + + | 11/05/ | Office | Cardiology | Pauly Stout, | | | 2019 | Visit | | MD [address] | | | | | | [place], | | | | | | [place] [address] | | | | | | [phone] | | | | | | | | +--------+---------+ + + + + + + + + | Health Maintenance | Due Date | Last | Comments | | | | Done | | + + + + + | Hepatitis C | | | | | Screening | 6 | | | + + + + + | Med Mgmt: Uric Acid | | | | | | 6 | | | + + + + + | Medication | | | | | Management | 6 | | | + + [...] | 1 | | | | of 1 - PPSV23) | | | | + + + + + | Diabetic Foot Exam | | 02/03/20 | | | | 8 | 17, | | | | | 02/03/20 | | | | | 17 | | + + + + + | Diabetic Eye Exam | | 02/03/20 | | | | 9 | 17 | | + + + + + | Adult Annual | | 02/23/20 | | | Wellness Visit | 0 | 19, | | | | | 02/09/20 | | | | | 18 | | + + + + + | Microalbumin | | 02/25/20 | | | Screening | 0 | 19 | | + + + + + | Hemoglobin A1c | | 02/23/20 | | | Screening | 0 | 20, | | | | | 02/25/20 | | | | | 19, | | | | | 11/14/20 | | | | | 15, | | | | | Addition | | | | | al | | | | | history | | | | | exists | | + + + + + | Med Mgmt: HBA1C | | 02/23/20 | | | | 0 | 20, | | | | | 02/25/20 | | | | | 19, | | | | | 11/14/20 | | | | | 15, | | | | | Addition | | | | | al | | | | | history | | | | | exists | | + + + + + | Med Mgmt: Cr | | 02/23/20 | | | | 1 | 20, | | | | | 02/25/20 | | | | | 19, | | | | | 02/25/20 | | | | | 19, | | | | | Addition | | | | | al | | | | | history | | | | | exists | | + + + + + | Med Mgmt: HCT | | 02/23/20 | | | | 1 | 20, | | | | | 02/23/20 | | | | | 20, | | | | | 02/25/20 | | | | | 19, | | | | | Addition | | | | | al | | | | | history | | | | | exists | | + + + + + | Med Mgmt: HGB | | 02/23/20 | | | | 1 | 20, | | | | | 02/23/20 | | | | | 20, | | | | | 02/25/20 | | | | | 19, | | | | | Addition | | | | | al | | | | | history | | | | | exists | | + + + + + | Med Mgmt: K | | 02/23/20 | | | | 1 | 20, | | | | | 02/23/20 | | | | | 20, | | | | | 02/25/20 | | | | | 19, | | | | | Addition | | | | | al | | | | | history | | | | | exists | | + + + + + | Med Mgmt: Na | | 02/23/20 | | | | 1 | 20, | | | | | 02/23/20 | | | | | 20, | | | | | 02/25/20 | | | | | 19, | | | | | Addition | | | | | al | | | | | history | | | | | exists | | + + + + + | Med Mgmt: eGFR | | 02/23/20 | | | | 1 | 20, | | | | | 02/23/20 | | | | | 20, | | | | | 02/25/20 | | | | | 19, | | | | | Addition | | | | | al | | | | | history | | | | | exists | | + + + + + | Vaccine: Influenza | Completed | 08/07/20 | | | | | 20, | | | | | 08/06/20 | | | | | 18, | | | | | 08/15/20 | | | | | 17, | | | | | Addition | | | | | al | | | | | history | | | | | exists [...] + + from Last 3 Months Results ECG 12 lead (08/27/2020 9:52 AM [...] | | | | PAULY STOUT MD ([id number]) | | | | | | on [...] | | | + +---------+ + + from Last 3 Months Insurance [...] +--------+ +---------+--------+ | MEDICARE | MEDICA | [id number] | | [phone] | | Medica | | | RE | | 011-Pr | 5 | | re | | | PART A | | esent | | | | | | AND B | | | | | | + +--------+ +--------+ +---------+--------+ | MEDICARE SUPPLEMENT | MEDICA | [id number] | | [phone] | | Indemn | | OTHER | RE | 5 | 012-Pr | 0 | | ity | | | SUPPLE | | esent | | | | | | MENT | | | | | | | | OTHER | | | | | | + +--------+ +--------+ +---------+--------+ | MEDICARE | MEDICA | [id number] | | [phone] | | Medica | | | RE | | 011-Pr | 5 | | re | | | PART A | | esent | | | | | | AND B | | | | | | + +--------+ +--------+ +---------+--------+ | [employer] | AMA | [id number] | | | | Indemn | | ASSOC | MDCR | | 012-Pr | | | ity | | | SUPPL | | esent | | | | + +--------+ +--------+ [...] Self | [birth year] | [address] | | | al/Fam | | 1945 | [phone] | [place], [place]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
--- OUTSIDE RECORDS SUMMARY | ~2020-08-30 | XMS | Encounter Summary ---
Demographics + + + | Address | [address] | | | [place] [address] | + + + | Home Phone [...] [place] | | | | | [address] | | + + + + + | Floyd Herndon | ECON | NA | | | | | NA, | | + + + + + Care Team Providers + +------+ + | Care Overhead Crane Technician Name | Role | Phone | [...] | 07/09/ | Refill | [facility] [place] [facility] | Beltran Fields, | Medication Refill | | 2017 | | MEDIC[address] | MD [address] | | | | | [place] [place], | [place] [address] [place], | | | | | [place] [address] | [place] [address] | | | | | [phone] | [phone] | | | | | | | [...] | | | | | | [place] [address] | | | | | | [phone] | | | | | | | | +--------+---------+ + + + documented as of this encounter Visit Diagnoses Not on filedocumented in this encounter"
--- OUTSIDE RECORDS SUMMARY | ~2020-08-30 | XMS | Encounter Summary ---
Demographics + + + | Address | [address] | | | [place] [address] | + + + | Home Phone [...] | [facility] | | | and [place] | + + + | Organization | [facility] | | [...] [place] | | | | | [address] | | + + + + + | Floyd Herndon | ECON | NA | | | | | NA, | | + + + + + Care Team Providers + +------+ + | Care Neurology Director Name | Role | Phone | + +------+ + | Beltran Fields MD | PCP | | + +------+ + Reason for Visit + +--------+ + | Reason | Onset | Comments | | | Date | | + +--------+ + | Medication Refill | 11/10/ | | | | 2012 | | + +--------+ + Encounter Details +--------+--------+ + + + | Date | Type | Department | Care Team | Description | +--------+--------+ + + + | 11/10/ | Refill | [facility] [place] [facility] | Beltran Fields, | Medication Refill | | 2012 | | MEDICINE [address] | [address] | | | | | [place] [place], | [address] [address] [place], | | | | | [place] [address] | [place] [address] | | | | | [phone] | | | | | | | [...] | | | | | | [place] [address] | | | | | | [phone] | | | | | | | | +--------+---------+ + + + documented as of this encounter Visit Diagnoses Not on filedocumented in this encounter"
--- OUTSIDE RECORDS SUMMARY | ~2020-08-30 | XMS | Encounter Summary ---
Demographics + + + | Address | [address] | | | [place] [address] | + + + | Home Phone [...] | [facility] | | | and [place] | + + + | Organization | [facility] | | [...] [place] | | | | | [address] | | + + + + + | Floyd Herndon | ECON | NA | | | | | NA, | | + + + + + Care Team Providers + +------+ + | Care Linoleum Floor Layer Name | Role | Phone | [...] | 11/23/ | Refill | [facility] [place] [facility] | Beltran Fields, | Medication Refill | | 2018 | | MEDICINE [address] | MD [address] | | | | | [place], | [address] [place], | | | | | [place] [address] | [place] [address] | | | | | [phone] | [phone] | | | | | | | [...] | | | | | | [place] [address] | | | | | | [phone] | | | | | | | | +--------+---------+ + + + documented as of this encounter Visit Diagnoses Not on filedocumented in this encounter"
--- OUTSIDE RECORDS SUMMARY | ~2020-08-30 | XMS | Encounter Summary ---
Demographics + + + | Address | [address] | | | [place] [address] | + + + | Home Phone [...] | Author | [facility] | | | and [place] | + + + | Organization | [facility] | | | [...] [place] | | | | | [address] | | + + + + + | Floyd Herndon | ECON | NA | | | | | NA, | | + + + + + Care Team Providers + +------+ + | Care Associate Software Development Engineer Name | Role | Phone | + +------+ + | Beltran Fields MD | PCP | | + +------+ + Reason for Visit + +--------+ + | Reason | Onset | Comments | | | Date | | + +--------+ + | Medication Refill | 07/20/ | | | | 2013 | | + +--------+ + Encounter Details +--------+ + + + + | Date | Type | Department | Care Team | Description | +--------+ + + + + | 07/20/ | Telephone | [facility] | Beltran Fields, | Medication Refill | | 2013 | | MEDICINE [address] [place] [address] | [address] | | | | | [place], | [address] [place], | | | | | [place] [address] | [place] [address] | | | | | [phone] | | | | | | | [...] Notes Telephone Encounter - Petra Small - 07/23/2014 2:07 PM PDTPhone call to patient to t up appointment. Left message to please call back to schedule elephone Encounter - Yuliet Stephens RN - 07/20/2014 2:56 PM PDTPlease schedule appt documented in this e ncounter Plan of [...] | | | | | | [place] [address] | | | | | | [phone] | | | | | | | | +--------+---------+ + + + documented as of this encounter Visit Diagnoses Not on filedocumented in this encounter"
--- OUTSIDE RECORDS SUMMARY | ~2020-08-30 | XMS | Encounter Summary ---
Demographics + + + | Address | [address] | | | [place] [address] | + + + | Home Phone [...] [place] | | | | | [address] | | + + + + + | Floyd Herndon | ECON | NA | | | | | NA, | | + + + + + Care Team Providers + +------+ + | Care Hospital Coordinator Name | Role | Phone | [...] + + | 11/14/ | Office | [facility] | Beltran Fields, | Paroxysmal a-fib | | 2015 | Visit | MEDICINE [address] | [address] | (Primary Dx); Other | | | | [address]VE [place], | [place] [address] [place], | hyperlipidemia; | | | | [place] [address] | [place] [address] | Essential | | | | [phone] | [phone] | hypertension, | | | | | [...] bid per Cardiology Taylor Luevano MD in [place]. 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 He is . 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 He lives in [place], [place]. 9 living Grandchildren. Review of Systems [...] | | | | | | [place] [address] | | | | | | [phone] | | | | | | | [...]
--- OUTSIDE RECORDS SUMMARY | ~2020-08-30 | XMS | Encounter Summary ---
Demographics + + + | Address | [address] | | | [place] [address] | + + + | Home Phone [...] [place] | | | | | [address] | | + + + + + | Floyd Herndon | ECON | NA | | | | | NA, | | + + + + + Care Team Providers + +------+ + | Care Green Tire Inspector Name | Role | Phone | [...] | 08/31/ | Refill | [facility] [place] [facility] | Beltran Fields, | Medication Refill | | 2018 | | MEDICINE [address] | MD [address] | | | | | [address]VE [place], | [address] [place], | | | | | [place] [address] | [place] [address] | | | | | [phone] | [phone] | | | | | | | [...] | | | | | | [place] [address] | | | | | | [phone] | | | | | | | | +--------+---------+ + + + documented as of this encounter Visit Diagnoses Not on filedocumented in this encounter"
--- OUTSIDE RECORDS SUMMARY | ~2020-08-30 | XMS | Encounter Summary ---
Demographics + + + | Address | [address] | | | [place] [address] | + + + | Home Phone [...] + | Author | [facility] | | | and [place] | + + + | Organization | [facility] | | | and [...] [place] | | | | | [address] | | + + + + + | Floyd Herndon | ECON | NA | | | | | NA, | | + + + + + Care Team Providers + +------+ + | Care Bladder Changer Name | Role | Phone | + +------+ + | Beltran Fields MD | PCP | | + +------+ + Reason for Visit + +--------+ + | Reason | Onset | Comments | | | Date | | + +--------+ + | Medication Refill | 07/13/ | | | | 2013 | | + +--------+ + Encounter Details +--------+--------+ + + + | Date | Type | Department | Care Team | Description | +--------+--------+ + + + | 07/13/ | Refill | [facility] [place] [facility] | Beltran Fields, | Medication Refill | | 2013 | | MEDICINE [address] | [address] | | | | | [address] [place], | [address] [place], | | | | | [place] [address] | [place] [address] | | | | | [phone] | [phone] | | | | | | | [...] | | | | | | [place] [address] | | | | | | [phone] | | | | | | | | +--------+---------+ + + + documented as of this encounter Visit Diagnoses Not on filedocumented in this encounter"
--- OUTSIDE RECORDS SUMMARY | ~2020-08-30 | XMS | Encounter Summary ---
Demographics + + + | Address | [address] | | | [place] [address] | + + + | Home Phone [...] [place] | | | | | [address] | | + + + + + | Floyd Herndon | ECON | NA | | | | | NA, | | + + + + + Care Team Providers + +------+ + | Care Salesperson [employer] Name | Role | Phone | + [...] | 02/02/ | Refill | [facility] [place] [facility] | Beltran Fields, | Medication Refill | | 2019 | | MEDICINE [address] | MD [address] | | | | | [place], | [place] [address] [place], | | | | | [place] [address] | [place] [address] | | | | | [phone] | [phone] | | | | | | | [...] this encounter Miscellaneous Notes Telephone Encounter - Brandie Church - 02/03/2019 2:16 PM PDTScheduled for 02/22/19.Electronic ally signed by Brandie Church at 02/03/2019 2:18 PM PDTdocumented in this encounter Plan of Treatment +--------+---------+ + + + | Date | Type | Specialty | Care Team | Description | +--------+---------+ + + + | 11/05/ | Office | Cardiology | Cristiano Stout, | | | 2019 | Visit | | MD [address] | | | | | | [place], | | | | | | [place] [address] | | | | | | [phone] | | | | | | | | +--------+---------+ + + + documented as of this encounter Visit Diagnoses Not on filedocumented in this encounter"
--- OUTSIDE RECORDS SUMMARY | ~2020-08-30 | XMS | Encounter Summary ---
Demographics + + + | Address | [address] | | | [place] [address] | + + + | Home Phone [...] [place] | | | | | [address] | | + + + + + | Floyd Herndon | ECON | NA | | | | | NA, | | + + + + + Care Team Providers + +------+ + | Care Field Insurance Sales Manager Name | Role | Phone | [...] | 01/10/ | Refill | [facility] [place] [facility] | Beltran Fields, | Medication Refill | | 2020 | | [facility] | [address] | | | | | [address] | [place] [address] [place], | | | | | [place] | [place] [address] | | | | | [address] | [phone] | | | | | [phone] | | | +--------+--------+ + + + [...] | | | | | | [place] [address] | | | | | | [phone] | | | | | | | | +--------+---------+ + + + documented as of this encounter Visit Diagnoses Not on filedocumented in this encounter"
--- OUTSIDE RECORDS SUMMARY | ~2020-08-30 | XMS | Encounter Summary ---
Demographics + + + | Address | [address] | | | [place] [address] | + + + | Home Phone [...] [place] | | | | | [address] | | + + + + + | Floyd Herndon | ECON | NA | | | | | NA, | | + + + + + Care Team Providers + +------+ + | Care Restaurant Inspector Name | Role | Phone | + +------+ + | Beltran Fields MD | PCP | | + +------+ + Reason for Visit + +--------+ + | Reason | Onset | Comments | | | Date | | + +--------+ + | Appointment | 08/19/ | | | | 2019 | | + +--------+ + Encounter Details +--------+ + + + + | Date | Type | Department | Care Team | Description | +--------+ + + + + | 08/19/ | Telephone | [facility] | Beltran Fields, | Appointment | | 2019 | | MEDICINE [place] | [address] | | | | | [address] | [address] [address] [place], | | | | | [place] | [place] [address] | | | | | [address] | [phone] | | | | | [phone] | | | +--------+ + + + [...] this encounter Miscellaneous Notes Telephone Encounter - Malachi Jacome - 08/29/2020 4:36 PM PDTPatient does not wan t to schedule at this time. 4 :37 PM PDTTelephone Encounter - Nanci Jones - 08/29/2020 2:28 PM PDTLeft voicemail fo r patient asking for a return call to schedule an appointment. elephone Encounter - Jolene Santiago - 08/26/2020 8:57 AM PDTLeft voicemail to call office. elephone Encounter - Jacinta Truong RN - 03/2020 3:54 PM PDTPlease schedule 6 month medication follow-up with PCP. documented in thi s encounter Plan of Treatment +--------+---------+ + + + | Date | Type | Specialty | Care Team | Description | +--------+---------+ + + + | 11/05/ | Office | Cardiology | Cristiano Stout, | | | 2019 | Visit | | [address] | | | | | | [place], | | | | | | [place] [address] | | | | | | [phone] | | | | | | | | +--------+---------+ + + + documented as of this encounter Visit Diagnoses Not on filedocumented in this encounter"
--- OUTSIDE RECORDS SUMMARY | ~2020-08-30 | XMS | Encounter Summary ---
Demographics + + + | Address | [address] | | | [place] [address] | + + + | Home Phone [...] [place] | | | | | [address] | | + + + + + | Floyd Herndon | ECON | NA | | | | | NA, | | + + + + + Care Team Providers + +------+ + | Care Special Distribution Clerk Name | Role | Phone | + +------+ + | Beltran Fields MD | PCP | | + +------+ + Encounter Details +--------+ + + + + | Date | Type | Department | Care Team | Description | +--------+ + + + + | 11/09/ | Hospital | [facility] | Corinne Kailynhany Wing | Pulmonary embolism | | 2013 | Encounter | [facility] [address] | MD [address] | ([facility]); S/P | | | | [address] | [address] | prostatectomy; Chest | | | | [place], [place] | [place] [address] | pain; Hematuria; | | | | [address] | [phone] | Anemia; BPH (benign | | | | [phone] | | prostatic | | | | [...] | | | | | | emboli ([facility]) | +--------+ + + + + Social [...] of this encounter Discharge Summaries Jordan Donahue - 11/09/2014 9:48 AM PST Discharge Summaries by Jordan Donahue MD at 11/09/14 0948 Author: Jordan Donahue MD Service: Hospitalist Author Type: Physician Filed: 11/09/141124 Date of Service: 11/09/14947 Status: Addendum Coil Binder: Jordan Donahue MD (Physician) Related Notes: Original Note by Jordan Donahue MD (Physician) filed at 11/09/14 1125 [facility] Service: Hospitalist Physician Discharge Summary Pt: Guy Thurman AGE/SEX: 69 y.o. male ROOM: [address] [place] [address] PCP: PER PT NONE : 1945 Admit [...] F (36.7 C) TempSrc: Oral Oral Resp: 16 16 18 Height: 1.778 m (5' [...] DONAHUE MD 11/09/2014 9:48 AM Dictation software, [employer], used which may contain error for similar sounding words even af ter review. Personal communication requested for any clarification. documented in this encount er Medications at Time of Discharge + + [...] + + + +---------+ + + | [place]-3 Fatty | two capsules by | | [...] Note by Payton Fuentes RN at 11/09/14 2951 Author: Payton Fuentes RN Service: (none) Author Type: Registered Nurse Filed: 11/09/14 1239 Date of Service: 11/09/14 1237 Status: Signed Coil Binder: Payton Fuentes, RN (Registered Nurse) Patient discharged to home [...] AM PST Progress Notes by Quyen Becker RPH at 11/09/14518 Author: Quyen Becker RPH Service: (none) Author Type: Pharmacist Filed: 11/09/14518 Date of Service: 11/09/14518 Status: Signed Coil Binder: Quyen Becker RPH (Pharmacist) Clinical Pharmacy Note: Renal Monitoring Guy Thurman 69 y.o. male Pharmacy dosing for renal function per Dr. Sun. Currently there is no serum creatinine. Pharmacy will adjust medications, if necessary, in AM when labs are reported per P & T committee. Quyen Becker PharmD 11/09/2014 5:19 AM docume nted in this encounter ED Notes Mani Hernandez MD - 11/09/2014 3:10 AM PSTFormatting of this note might be different fro m the original. ED Provider Notes by Mani Hernandez MD at 11/09/14309 Author: Mani Hernandez MD Service: (none) Author Type: Physician Filed: 11/09/14 0449 Date of Service: 11/09/14309 Status: Signed Coil Binder: Mani Hernandez MD (Physician) [facility] Department of Emergency Medicine History of Present Illness Patient Identification Guy Thurman is a 69 y.o. male. Patient information was obtained from patient. History/Exam limitations: none. Patient presented to the Emergency Department by: [facility] Chief Complaint Chief Complaint Patient presents with Post-op Problem Shortness of Breath The patient complains of hematuria, dyspnea. Onset of symptoms was 5 days ago, with a inter mittent course since that time. The symptoms are described to be of moderate severity. The patient describes the quality and location of the symptoms as the following: patient has be en short of breath since prostatectomy surgery 5 days ago, today when to ER at [facility] because of sharif issues with blood clots in urine, went to have sharif irrigated, while shirley prajapati mentioned the dyspnea, had CT of chest done that showed PE in LLL. The patient also compl ains of no chest pain. Care prior to arrival consisted of lovenox, ceftriaxone. PCP: PER PT NONE Past Medical History Diagnosis Date Sleep apnea Hypertension Gout Atrial fibrillation GERD (gastroesophageal reflux disease) Hyperlipidemia Past Surgical History Procedure Laterality Date Prostatectomy Appendectomy Vasectomy Left knee meniscus Laminectomy L3-L5 Bilateral carpal tunnel release Prior to Admission medications Not on File Allergies Allergen Reactions Diltiazem Rash History Social History Marital Status: Spouse Name: N/A Number of Children: N/A Years of Education: N/A Occupational History Not on file. Social History Main Topics Smoking status: Not on file Smokeless tobacco: Not on file Alcohol Use: Not on file Drug Use: Not on file Sexual Activity: Not on file Other Topics Concern Not on file Social History Narrative No family history on file. Review of Systems Constitutional: Negative for: fever, chills, sweats or weight loss Eyes: Negative for: decreased vision or irritated eyes Nose: Negative for: nosebleed Throat: Negative for: mouth sores Cardiovascular/Respiratory: Negative for: chest pain, cough Gastrointestinal: Negative for: abdominal pain, vomiting, diarrhea, black or bloody stools Genitourinary: Negative for: dysuria Musculoskeletal: Negative for: myalgias and arthralgias Skin: Negative for: laceration or lesion Neuro and psych: Negative for: fainting, head injury, seizure, trouble walking Endocrine/Heme/Lymph: Negative for: swollen lymph nodes, easy bruising All systems reviewed and otherwise negative Physical Exam BP 164/90 | Pulse 89 | Temp(Src) 98 F (36.7 C) (Oral) | Resp 20 | Wt 117.935 kg (260 lb ) | SpO2 97% Vital signs reviewed and significant for hypertension Pulse Oximetry interpretation: Normal General: Alert, in no apparent distress Eyes: Normal inspection, pupils equal and round, non-icteric ENT: Ears normal Nose normal Pharynx normal Neck: Normal inspection Supple No lymphadenopathy No meningismus Cardiovascular: Rate and rhythm normal No murmurs Respiratory: Breath sounds normal bilaterally Abdomen: Soft, non-tender, non-distended No guarding or rebound Genitourinary: Deferred Rectal exam: Deferred Back: Normal inspection Skin: Color normal Warm and dry No rash Neuro: No motor deficit No sensory deficit No confusion Medical Decision Making and Emergency Department Course ED Department Course 3:28. Hospitalist consult requested. Relevant history and workup of the case discussed wi th the hospitalist ground control approach technician and they will evaluate patient in the emergency department for ad mission. Records Reviewed Old medical records. Laboratory Evaluation Labs Reviewed - No data to display Results No results found for the last 72 hours. Available Labs reviewed and interpreted by me. Radiology Evaluation Imaging Results None Available radiology studies reviewed and interpreted contemporaneously by me. EKG Interpretation Rhythm: Sinus Ventricular Rate: 70 NV Interval: Normal ST Segments: Normal Significant Q-waves: None Blocks: None Prolonged QT ED Diagnoses Final diagnoses Pulmonary embolism Hematuria Anemia Disposition: ED Disposition Admit/Observation Bed request special needs: None Diagnosis?: pulmonary embolism, hematuria Procedures Additional Documentation Procedures Mani Hernandez MD 11/09/149 onversion Transacti on, Provider Unknown - 11/09/2014 3:02 AM PSTFormatting of this note might be different fro m the original. ED Notes by Henry Patel RN at 11/09/14301 Author: Henry Patel RN Service: (none) Author Type: Registered Nurse Filed: 11/09/14301 Date of Service: 11/09/14301 Status: Signed Coil Binder: Henry Patel RN (Registered Nurse) Bed: 03 Expected date: Expected time: Means of arrival: Comments: docume nted in this encounter Miscellaneous Notes Plan of Care - Conversion Transaction, Provider Unknown - 11/09/2014 6:18 AM PST Plan of Care by Roge Bryan RN at 11/09/14617 Author: oRge Bryan RN Service: (none) Author Type: Registered Nurse Filed: 11/09/14617 Date of Service: 11/09/14617 Status: Signed Coil Binder: Roge Bryan RN (Registered Nurse) Problem: Pain Goal: Patient s pain/discomfort is manageable Assess and monitor patient s pain using appropriate pain scale. Collaborate with interdis ciplinary team and initiate plan and interventions as ordered. Re-assess patient s pain le doug approximately 1-2 hours after pain management intervention. Premedicate as needed. Outcome: Progressing Patient will remain able to self rate pain at a tolerable level using prescribed pain medic ations as well as comfort/distraction techniques Problem: Safety Goal: Patient will be injury free during hospitalization Assess and monitor vitals signs, neurological status including level of consciousness and o rientation. Assess patient s risk for falls and implement fall prevention plan of care and interventions per hospital policy. Ensure arm band on, uncluttered walking paths in room, adequate room lighting, call light a nd overbed table within reach, bed in low position, wheels locked, side rails up per policy, and non-skid footwear provided. Outcome: Progressing Patient will remain free from falls or injury during hospitalization docume nted in this encounter Plan of Treatment +--------+---------+ + + + | Date | Type | Specialty | Care Team | Description | +--------+---------+ + + + | 11/05/ | Office | Cardiology | Cristiano Stout, | | | 2019 | Visit | | MD [address] | | | | | | [place], | | | | | | [place] [address] | | | | | | [phone] | | | | | | | [...] Note | + + | Jordi Good Conversion - 06/30/2019 6:00 PM PDT This is [...] EXTERNAL | | | | performed at [facility], [address] | uIU/mL | LAB | | | | [address], | | | | | | [place] [address] | | | | + + + [...] EXTERNAL | | | | performed at [facility], [address] | | LAB | | | | Trish [address]se, | | | | | | [place] [address] | | | | + + + + + + | Triglycerid | 175 (H)Comment: Testing | mg/dL | EXTERNAL | | | es | performed at [facility], [address] | | LAB | | | | [address], | | | | | | [place] [address] | | | | + + + + + + | HDL | 19 (L)Comment: Testing | mg/dL | EXTERNAL | | | | performed at [facility], [address] | | LAB | | | | [address], | | | | | | [place] [address] | | | | + + + + + + | LDL, | 61Comment: Testing | mg/dL | EXTERNAL | | | Calculated | performed at [facility], [address] | | LAB | | | | [address], | | | | | | [place] [address] | | | | + + + [...] | | | | | ONLY, -COMPUTER (500), | | | | | | news copy editor Kristy Martinez | | | | | | (18) on 11/09/2014 | | | | | | 5:25:44 AM | | | | + + + + + + + + | Specimen | + + | | + + + + + | Narrative | Performed At | + + + | [facility] | EXTERNAL LAB | + + + [...]
--- OUTSIDE RECORDS SUMMARY | ~2020-08-30 | XMS | Encounter Summary ---
Demographics + + + | Address | [address] | | | [place] [address] | + + + | Home Phone [...] + | Author | [facility] | | | and [place] | + + + | Organization | [facility] | | | [...] [place] | | | | | [address] | | + + + + + | Floyd Herndon | ECON | NA | | | | | NA, | | + + + + + Care Team Providers + +------+ + | Care News Director Name | Role | Phone | [...] diabetes | | 2016 | | MEDICINE [facility] | [address] | mellitus with | | | | [address] | [place] [address] [place], | hyperglycemia (HCC) | | | | [place] | [place] [address] | (Primary Dx); | | | | [address] | [phone] | Hyperglycemia | | | | [phone] | | | +--------+ + + + [...] + + documented as of this encounter Renee Everett - 08/04/2016 10:42 AM PDTCare Opportunities have changed and will be addre ssed in a new encounter. Renee Isaacs - 04/28/2016 8:58 AM PDT [facility] BROWN [facility] as requiring the ser vices [...] Get the following screening done: Colorectal cancer scree jorge Microalbumin Test at least once a year Not in our Medical Records Get tested at your next O ffice Visit Weight Manage my weight 262 lb 04/21/2016 Call your clinic if you would like an exercise or nutrition plan that is right for you To Primary Care Provider KEYAAN BOLTON: Note if you agree with the services due: Office Visit for: Colorectal cancer screening Sign or remove pended order(s) as per your assessment - (see [employer]cher [employer]der): A1c (Hemoglobin A1c) - Already entered Microalbumin CBC w/ Differential - Already entered FLP - Already entered Urinalysis with Microscopic w/ Culture if Indicated - Already entered Route back to [facility] Disease Management Support Team by using the Follow-Up Section of the e ncounter. Thank you. documented in this encou nter [...] | | | | | | [place] [address] | | | | | | [phone] | | | | | | | [...]
--- OUTSIDE RECORDS SUMMARY | ~2020-08-30 | XMS | Encounter Summary ---
Demographics + + + | Address | [address] | | | [place] [address] | + + + | Home Phone [...] [place] | | | | | [address] | | + + + + + | Floyd Herdnon | ECON | NA | | | | | NA, | | + + + + + Care Team Providers + +------+ + | Care Metal Fabricator Name | Role | Phone | + +------+ + | Beltran Fields MD | PCP | | + +------+ + Reason for Visit + +--------+ + | Reason | Onset | Comments | | | Date | | + +--------+ + | Medication Refill | 11/26/ | | | | 2016 | | + +--------+ + Encounter Details +--------+--------+ + + + | Date | Type | Department | Care Team | Description | +--------+--------+ + + + | 11/26/ | Refill | [facility] [place] [facility] | Beltran Fields, | Medication Refill | | 2016 | | MEDICINE [address] | [address] | | | | | [address] [place], | [place] [address] [place], | | | | | [place] [address] | [place] [address] | | | | | [phone] | [phone] | | | | | | | [...] | | | | | | [place] [address] | | | | | | [phone] | | | | | | | | +--------+---------+ + + + documented as of this encounter Visit Diagnoses Not on filedocumented in this encounter"
--- OUTSIDE RECORDS SUMMARY | ~2020-08-30 | XMS | Encounter Summary ---
Demographics + + + | Address | [address] | | | [place] [address] | + + + | Home Phone [...] + + + | Author | [facility] | | | and [place] | + + + | Organization | [facility] | | [...] [place] | | | | | [address] | | + + + + + | Floyd Herndon | ECON | NA | | | | | NA, | | + + + + + Care Team Providers + +------+ + | Care Event Promoter Name | Role | Phone | + [...] | hyperplasia (Primary | | | | [place] | [place] | Dx); Family history | | | | [address] | [address] | of prostate cancer; | | | | [phone] | | History of elevated | | [...] | | | | | | [place] [address] | | | | | | [phone] | | | | | | | [...]
--- OUTSIDE RECORDS SUMMARY | ~2020-08-30 | XMS | Encounter Summary ---
Demographics + + + | Address | [address] | | | [place] [address] | + + + | Home Phone [...] Author | [facility] | | | and [place] | + + + | Organization | [facility] | | [...] [place] | | | | | [address] | | + + + + + | Floyd Herndon | ECON | NA | | | | | NA, | | + + + + + Care Team Providers + +------+ + | Care Control Technician Name | Role | Phone | + +------+ + | Beltran Fields MD | PCP | | + +------+ + Reason for Visit + +--------+ + | Reason | Onset | Comments | | | Date | | + +--------+ + | Medication Refill | 01/04/ | | | | 2014 | | + +--------+ + Encounter Details +--------+--------+ + + + | Date | Type | Department | Care Team | Description | +--------+--------+ + + + | 01/04/ | Refill | [facility] [place] [facility] | Beltran Fields, | Medication Refill | | 2014 | | MEDICINE [address] | [address] | | | | | [address] [place], | [address] [address] [place], | | | | | [place] [address] | [place] [address] | | | | | [phone] | [phone] | | | | | | | [...] | | | | | | [place] [address] | | | | | | [phone] | | | | | | | | +--------+---------+ + + + documented as of this encounter Visit Diagnoses Not on filedocumented in this encounter"
--- OUTSIDE RECORDS SUMMARY | ~2020-08-30 | XMS | Encounter Summary ---
Demographics + + + | Address | [address] | | | [place] [address] | + + + | Home Phone [...] [place] | | | | | [address] | | + + + + + | Floyd Herndon | ECON | NA | | | | | NA, | | + + + + + Care Team Providers + +------+ + | Care Saxophone Teacher Name | Role | Phone | [...] Fields, | Anemia (Primary Dx); | | 2014 | | MEDICINE [address] | [address] | Hyperlipidemia | | | | AVE [place], | [place] [address] [place], | | | | | [place] [address] | [place] [address] | | | | | [phone] | [phone] | | | | | | | [...] | | | | | | [place] [address] | | | | | | [phone] | | | | | | | [...]
--- OUTSIDE RECORDS SUMMARY | ~2020-08-30 | XMS | Encounter Summary ---
Demographics + + + | Address | [address] | | | [place] [address] | + + + | Home Phone [...] + + + | Author | [facility] | | | and [place] | + + + | Organization | [facility] | | [...] [place] | | | | | [address] | | + + + + + | Floyd Herndon | ECON | NA | | | | | NA, | | + + + + + Care Team Providers + +------+ + | Care Carcass Splitter Name | Role | Phone | + +------+ + | Beltran Fields MD | PCP | | + +------+ + Reason for Visit + +--------+ + | Reason | Onset | Comments | | | Date | | + +--------+ + | Medication Orders | 03/29/ | | | | 2018 | | + +--------+ + Encounter Details +--------+ + + + + | Date | Type | Department | Care Team | Description | +--------+ + + + + | 03/29/ | Telephone | [facility] | Beltran Fields, | Medication Orders | | 2018 | | MEDICINE [place] | [address] | | | | | [address] | [place] [address] [place], | | | | | [place] | [place] [address] | | | | | [address] | [phone] | | | | | [phone] | | | +--------+ + + + [...] Telephone Encounter - Julia Kearns RN - 03/30/2019 10:10 AM PDTFormatting of this no te might be different from the original. MD Julia Arrieta RN Caller: Unspecified (Yesterday, 9:53) Ok for metformin 1000mg Po bid, 180, 1 R Ordered. Patient notified. 10: 13 AM PDTTelephone Encounter - Julia Kearns RN - 03/29/2019 9:49 AM PDTAt his last a ppointment, patient and Dr. Fields discussed starting metformin for diabetes. Patient would like to try medication now and requests rx. Please call patient at [phone] with response. documented in this encounter Plan of Treatment +--------+---------+ + + + | Date | Type | Specialty | Care Team | Description | +--------+---------+ + + + | 11/05/ | Office | Cardiology | Cristiano Stout, | | | 2019 | Visit | | MD [address] | | | | | | [place], | | | | | | [place] [address] | | | | | | [phone] | | | | | | | | +--------+---------+ + + + documented as of this encounter Visit Diagnoses + + | Diagnosis | + + | Type 2 diabetes mellitus with hyperglycemia, without long-term current use of insulin | | (HCC) - Primary | + + documented in this encounter"
--- OUTSIDE RECORDS SUMMARY | ~2020-08-30 | XMS | Encounter Summary ---
Demographics + + + | Address | [address] | | | [place] [address] | + + + | Home Phone [...] [place] | | | | | [address] | | + + + + + | Floyd Herndon | ECON | NA | | | | | NA, | | + + + + + Care Team Providers + +------+ + | Care Flight Test Mechanic Name | Role | Phone | [...] | 01/31/ | Refill | [facility] [place] [facility] | Beltran Fields, | Medication Refill | | 2012 | | MEDICINE [place] | [address] | | | | | [address] | [place] [address] [place], | | | | | [place] | [place] [address] | | | | | [address] | [phone] | | | | | [phone] | | | +--------+--------+ + + + [...] Telephone Encounter - Hien Grace RN - 02/01/2013 7:15 AM PDTLast seen 09/08/2012 Last filled 08/01/2012 documented in this encounter Plan of Treatment +--------+---------+ + + + | Date | Type | Specialty | Care Team | Description | +--------+---------+ + + + | 11/05/ | Office | Cardiology | Cristiano Stout, | | | 2019 | Visit | | MD [address] | | | | | | [place], | | | | | | [place] [address] | | | | | | [phone] | | | | | | | | +--------+---------+ + + + documented as of this encounter Visit Diagnoses Not on filedocumented in this encounter"
--- OUTSIDE RECORDS SUMMARY | ~2020-08-30 | XMS | Encounter Summary ---
Demographics + + + | Address | [address] | | | [place] [address] | + + + | Home Phone [...] [place] | | | | | [address] | | + + + + + | Floyd Herndon | ECON | NA | | | | | NA, | | + + + + + Care Team Providers + +------+ + | Care Fuel Island Attendant Name | Role | Phone | [...] Description | +--------+--------+ + + + | 08/18/ | Refill | [facility] | Beltran Fields, | Medication Refill | | 2020 | | [facility] | [address] | | | | | MEDICINE [facility] | [address] [place], | | | | | [address] | [place] [address] | | | | | [place] [address] [place], | [phone] | | | | | [place] [address] | | | | | | [phone] | | | +--------+--------+ + + + [...] | | | | | | [place] [address] | | | | | | [phone] | | | | | | | | +--------+---------+ + + + documented as of this encounter Visit Diagnoses + + | Diagnosis | + + | Mixed hyperlipidemia | + + | ATRIAL FIBRILLATION WITH RAPID VENTRICULAR RESPONSE Atrial fibrillation | + + documented in this encounter"
--- OUTSIDE RECORDS SUMMARY | ~2020-08-30 | XMS | Encounter Summary ---
Demographics + + + | Address | [address] | | | [place] [address] | + + + | Home Phone [...] [place] | | | | | [address] | | + + + + + | Floyd Herndon | ECON | NA | | | | | NA, | | + + + + + Care Team Providers + +------+ + | Care Insulation Power Unit Tender Name | Role | Phone | [...] + + | 04/21/ | Office | [facility] | Geronimo Iglesias PA | JEAN on CPAP (Primary | | 2016 | Visit | SLEEP DISORDER 401 | [address] | Dx) | | | | [address] | [place] | | | | | [place] [address] | [address] | | | | | [phone] | | | +--------+---------+ + + + [...] in this encounter Progress Notes Paola Gallegos, Emanations Analysis Technician - 04/21/2016 3:22 PM PDT 04/21/16 [address] Depression Inventory-II Depression Score 1 - Minimal depression Insomnia Severity Index Insomnia Severity Index 9 [place] Sleepiness Scale Sitting and reading 2 Watching [...] 56.17 MH 48.25 PCS 50.66 MCS 55.71 Geronimo Enamorado PA - 05/2016 2:57 PM PDT Subjective: Patient ID: Guy Thurman is a 70 y.o. male. HPI last office visit was: 03/24/2013 date of polysomnography: 10/19/2001 AHI: 15.3 RDI: O2%: 87.8% Machine type: ResMed AirSense 10 with nasal mask DME: [facility] [place] pressure: 8-16 cm Median: 10.4 cm 95%: [...] his sleep routine. 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 He does not have [...] Exam Assessment: Problem #1: OBSTRUCTIVE SLEEP APNEA ([id number]) This is well controlled with CPAP. His CPAP compliance is going well. Plan: 1. He is to continue with CPAP indefinitely. 2. Touch base with medical supplier twice per year to ensure that all equipment is satisfa ctory. I will follow up again in 2 years, sooner prn. At that time we will reassess with all appr opriate paperwork. Fifteen minutes were spent [id number], with the majority of time spent in [...] [place], | | | | | | [place] [address] | | | | | | [phone] | | | | | | | | +--------+---------+ + + + documented as of this encounter Visit Diagnoses + + | Diagnosis | + + | JEAN on CPAP - Primary Obstructive sleep apnea (adult) (pediatric) | + + documented in this encounter"
--- OUTSIDE RECORDS SUMMARY | ~2020-08-30 | XMS | Encounter Summary ---
Demographics + + + | Address | [address] | | | [place] [address] | + + + | Home Phone [...] [place] | | | | | [address] | | + + + + + | Floyd Herndon | ECON | NA | | | | | NA, | | + + + + + Care Team Providers + +------+ + | Care Drilling Foreman Name | Role | Phone | [...] | | | | 09/18/ | | [place], | | | | 2005 | | [place] [address] | | | | | | [phone] | | | +--------+ + + + [...] | | | | | | [place] [address] | | | | | | [phone] | | | | | | | | +--------+---------+ + + + documented as of this encounter Visit Diagnoses Not on filedocumented in this encounter"
--- OUTSIDE RECORDS SUMMARY | ~2020-08-30 | XMS | Encounter Summary ---
Demographics + + + | Address | [address] | | | [place] [address] | + + + | Home Phone [...] [place] | | | | | [address] | | + + + + + | Floyd Herndon | ECON | NA | | | | | NA, | | + + + + + Care Team Providers + +------+ + | Care Benefits Advisor Name | Role | Phone | [...] Description | +--------+--------+ + + + | 08/10/ | Refill | [facility] | Beltran Fields, | Medication Refill | | 2020 | | [facility] | [address] | | | | | MEDICINE [place] | [place] [address] [place], | | | | | [address] | [place] [address] | | | | | [address] [address] [place], | [phone] | | | | | [place] [address] | | | | | | [phone] | | | +--------+--------+ + + + [...] Telephone Encounter - Julia Kearns RN - 08/13/2020 10:25 AM PDTLast appointment: 01/13 Next appointment: None No refill protocol, is it ok to refill this medication? documented [...] | | | | | | [place] [address] | | | | | | [phone] | | | | | | | | +--------+---------+ + + + documented as of this encounter Visit Diagnoses + + | Diagnosis | + + | History of gout Personal history of other endocrine, metabolic, and immunity | | disorders | + + documented in this encounter"
--- OUTSIDE RECORDS SUMMARY | ~2020-08-30 | XMS | Encounter Summary ---
Demographics + + + | Address | [address] | | | [place] [address] | + + + | Home Phone [...] [place] | | | | | [address] | | + + + + + | Floyd Herndon | ECON | NA | | | | | NA, | | + + + + + Care Team Providers + +------+ + | Care Dividing Machine Operator Helper Name | Role | Phone | + +------+ + | Beltran Fields MD | PCP | | + +------+ + Reason for Visit + +--------+ + | Reason | Onset | Comments | | | Date | | + +--------+ + | Appointment | 04/20/ | | | | 2018 | | + +--------+ + Encounter Details +--------+ + + + + | Date | Type | Department | Care Team | Description | +--------+ + + + + | 04/20/ | Telephone | [facility] | Jordin Padron, | Appointment | | 2018 | | [address] | MD [address] | | | | | [place] | [place] | | | | | [address] | [address] | | | | | [phone] | | | +--------+ + + + [...] Notes Telephone Encounter - Kiley Bowens - 04/20/2019 2:36 PM PDTCALLED PT TO SCHEDULE A PPT. PT DECLINED TO SCHEDULE AT THIS TIME AND STATED HE WILL CALL BACK WHEN HE CAN LOOK AT H IS SCHEDULE TO SET ASIDE SOME TIME. WILL WAIT FOR PT TO CALL. elephone Encounter - Kiley Bowens - 2018 2:36 PM PDT----- Message from Claribel Trinidad RN sent at 04/14/2019 15:06 PDT ----- Please schedule for 1 YEAR FOLLOW UP (BPH) UA, PVR, AUA, BMP, PSA PRIOR 2:3 6 PM PDTdocumented in this encounter Plan of [...] | | | | | | [place] [address] | | | | | | [phone] | | | | | | | | +--------+---------+ + + + documented as of this encounter Visit Diagnoses Not on filedocumented in this encounter"
--- OUTSIDE RECORDS SUMMARY | ~2020-08-30 | XMS | Encounter Summary ---
Demographics + + + | Address | [address] | | | [place] [address] | + + + | Home Phone [...] [place] | | | | | [address] | | + + + + + | Floyd Herndon | ECON | NA | | | | | NA, | | + + + + + Care Team Providers + +------+ + | Care Discharge Rn Name | Role | Phone | + +------+ + | Beltran Fields MD | PCP | | + +------+ + Encounter Details +--------+ + + + + | Date | Type | Department | Care Team | Description | +--------+ + + + + | 08/21/ | Orders Only | [facility] [place] [facility] | Jordin Padron, | Abnormal PSA | | 2013 | | [address] | MD [address] | (Primary Dx) | | | | [place] | [place] | | | | | [address] | [address] | | | | | [phone] | | | +--------+ + + + [...] | | | | | | [place] [address] | | | | | | [phone] | | | | | | | | +--------+---------+ + + + documented as of this encounter Visit Diagnoses + + | Diagnosis | + + | Abnormal PSA - Primary Elevated prostate specific antigen (PSA) | + + documented in this encounter"
--- OUTSIDE RECORDS SUMMARY | ~2020-08-30 | XMS | Encounter Summary ---
Demographics + + + | Address | [address] | | | [place] [address] | + + + | Home Phone [...] [place] | | | | | [address] | | + + + + + | Floyd Herndon | ECON | NA | | | | | NA, | | + + + + + Care Team Providers + +------+ + | Care Financial Reporting Consultant Name | Role | Phone | + +------+ + | Beltran Fields MD | PCP | | + +------+ + Reason for Visit + +--------+ + | Reason | Onset | Comments | | | Date | | + +--------+ + | Medication Refill | 06/15/ | | | | 2012 | | + +--------+ + Encounter Details +--------+--------+ + + + | Date | Type | Department | Care Team | Description | +--------+--------+ + + + | 06/15/ | Refill | [facility] | Beltran Fields, | Medication Refill | | 2012 | | MEDICINE [address] | [address] | | | | | [address] [place], | [address] [address] [place], | | | | | [place] [address] | [place] [address] | | | | | [phone] | [phone] | | | | | | | [...] Telephone Encounter - China Littlejohn RN - 06/15/2013 8:49 AM PDTViagra was on the patient 's med list instead of Cialis. Cued Up for filling. Is this OK? Electronically signed by China Littlejohn RN at 3 8:51 AM PDTdocumented in this encounter Plan of [...] | | | | | | [place] [address] | | | | | | [phone] | | | | | | | | +--------+---------+ + + + documented as of this encounter Visit Diagnoses Not on filedocumented in this encounter"
--- OUTSIDE RECORDS SUMMARY | ~2020-08-30 | XMS | Encounter Summary ---
Demographics + + + | Address | [address] | | | [place] [address] | + + + | Home Phone [...] [place] | | | | | [address] | | + + + + + | Floyd Herndon | ECON | NA | | | | | NA, | | + + + + + Care Team Providers + +------+ + | Care Vest Tailor Name | Role | Phone | + +------+ + | Beltran Fields MD | PCP | | + +------+ + Encounter Details +--------+ + + + + | Date | Type | Department | Care Team | Description | +--------+ + + + + | 07/26/ | Abstract | [facility] [place] [facility] | Beltran Fields, | | | 2013 | | [facility] | [address] | | | | | [address] | [place] [address] [place], | | | | | [place] | [place] [address] | | | | | [address] | [phone] | | | | | [phone] | | | +--------+ + + + [...] | | | | | | [place] [address] | | | | | | [phone] | | | | | | | | +--------+---------+ + + + documented as of this encounter Visit Diagnoses Not on filedocumented in this encounter"
--- OUTSIDE RECORDS SUMMARY | ~2020-08-30 | XMS | Encounter Summary ---
Demographics + + + | Address | [address] | | | [place] [address] | + + + | Home Phone [...] [place] | | | | | [address] | | + + + + + | Floyd Herndon | ECON | NA | | | | | NA, | | + + + + + Care Team Providers + +------+ + | Care Residue Furnace Operator Name | Role | Phone | + +------+ + | Beltran Fields MD | PCP | | + +------+ + Reason for Visit + +--------+ + | Reason | Onset | Comments | | | Date | | + +--------+ + | Medication Refill | 12/03/ | | | | 2014 | | + +--------+ + Encounter Details +--------+--------+ + + + | Date | Type | Department | Care Team | Description | +--------+--------+ + + + | 12/03/ | Refill | [facility] [place] [facility] | Beltran Fields, | Medication Refill | | 2014 | | MEDICINE [address] | [address] [facility] [address] | | | | | [address] [place], | [address] [place], | | | | | [place] [address] | [place] [address] | | | | | [phone] | [phone] | | | | | | | [...] | | | | | | [place] [address] | | | | | | [phone] | | | | | | | | +--------+---------+ + + + documented as of this encounter Visit Diagnoses Not on filedocumented in this encounter"
[2020-08-30] MEDS ORDERED: MAGNESIUM400 MG PO (21:35)
[2020-08-30] MEDS ORDERED: ELIQUIS5 MG PO (21:35)
[2020-08-30] MEDS ORDERED: NORCO 5-325 TA1 EACH PO (22:13)
== END 2020-08-30 22:26 | disposition home or self-care (01) ==
LOC: ED 21:08
DX: S63.502A Unspecified sprain of left wrist, initial encounter (principal); W10.9XXA Fall (on) (from) unspecified stairs and steps, initial encounter; I48.91 Unspecified atrial fibrillation; K21.9 Gastro-esophageal reflux disease without esophagitis; I10 Essential (primary) hypertension; Z88.8 Allergy status to other drugs, medicaments and biological substances; Z79.899 Other long term (current) drug therapy; Z79.84 Long term (current) use of oral hypoglycemic drugs
CPT/HCPCS: 73110; 99283-25